=== PATIENT | male | born 1970 | race Hispanic/Latino ===

== ENCOUNTER 2018-03-23 23:22 | Inpatient (IN) | payer SELFPAY ==
[2018-03-23 23:53] LABS: #Eosinphils 0.2 thou/uL (0.0-0.7); #Lymphocytes 2.3 thou/uL (1.20-3.40); #Monocytes 0.4 thou/uL (0.11-0.59); #Neutrophils 3.9 thou/uL (1.40-6.50); %Basophils 0.6 % (0.0-1.0); %Eosinophils 2.6 % (0.0-10.0); %Lymphocytes 34.3 % (21.0-51.0); %Monocytes 5.2 % (0.0-10.0); %Neutrophils 57.2 % (42.0-75.0); Mean Corpuscular HGB CONC 31.5 g/dL (32.0-36.0); Mean Corpuscular Hemoglobin 27.5 pg (27.0-31.0); Mean Corpuscular Volume 87.1 fl (80.0-94.0); Mean Platelet Volume 7.6 fL (7.4-10.4); Platelet Count 186 thou/uL (130-400); RBC Distribution Width 12.7 % (11.5-14.5); Red Blood Cell (RBC) Count 5.11 mill/uL (4.70-6.10); White Blood Cell (WBC) Count 6.8 thou/uL (4.8-10.8)
[2018-03-24 00:12] LABS: ALT (SGPT) 36 U/L (8-55); AST (SGOT) 33 U/L (5-34); Albumin 3.9 g/dL (3.5-5.0); Alkaline Phosphatase 164 U/L (40-150); Anion Gap 15 mmol/L (10-20); BUN (Urea Nitrogen) 13 mg/dL (8.9-20.6); Bilirubin, Total 0.4 mg/dL (0.2-1.2); Calc. Creatinine Clearance 0 mL/min (70-130); Calcium 10.2 mg/dL (7.8-10.44); Carbon Dioxide 28 mmol/L (22-29); Chloride 97 mmol/L (98-107); Estimated GFR-MDRD 43; Globulin 5.3 g/dL (2.4-3.5); Protein, Total 9.2 g/dL (6.0-8.3); Sodium 136 mmol/L (136-145)
[2018-03-24 00:17] LABS: CKMB 0.9 ng/mL (0-6.6); Troponin I Less than 0.010 ng/mL (< 0.028)
[2018-03-24] MEDS ORDERED: Meclizine HCl 25 MG TAB ONE (00:22)
[2018-03-24 00:28] LABS: Bilirubin Negative (Negative); Blood, Urine Negative (Negative); Clarity CLEAR (Clear); Glucose, Urine (Dipstick) >=1000 mg/dL (Negative); Leukocyte Negative (Negative); Nitrite Negative (Negative); Protein, Urine (Dipstick) Negative (Neg-Trace); Specific Gravity, Urine 1.018 (1.002-1.036); Urobilinogen 0.2 mg/dL (0.2-1.0)
[2018-03-24 00:39] LABS: Glucose 856 mg/dL (70-105)
[2018-03-24 01:03] LABS: Magnesium 2.2 mg/dL (1.6-2.6); Phosphorus 4.7 mg/dL (2.3-4.7)
[2018-03-24] MEDS ORDERED: Dextrose 5% in Water 1,000 ML IV PRN (01:13)
[2018-03-24] MEDS ORDERED: Insulin Regular 300 UNITS/3 ML VIAL SC PRN (01:13)
[2018-03-24] MEDS ORDERED: Dextrose 50% Abboject 50 ML SYRINGE SLOW IVP PRN (01:13)
[2018-03-24 01:14] LABS: Base Excess-Venous 2.8 mmol/L (0 (+/- 2.5)); Bicarbonate (HCO3v) 28.7 mmol/L (1.0-85.0); CO2 Tension (PvCO2) 47.5 mmHg (41.0-51.0); Calcium, Ionized 1.08 mmol/L (1.12-1.32); Hemoglobin - Calc 16.3 g/dL (12.0-18.0); O2 Tension (PvO2) 31.1 mmHg (35.0-45.0); Potassium 4.3 mmol/L (3.4-4.7); T. Carbon Dioxide 30.2 mmol/L (1.0-85.0); vO2 Saturation-calc 58.3 % (94-98)
[2018-03-24] MEDS ORDERED: HumaLOG 300 UNITS/3 ML VIAL ONE (01:17)
[2018-03-24 02:27] LABS: Hemoglobin A1c 10.4 % (4.0-6.0)
[2018-03-24] MEDS ORDERED: Ondansetron HCl/PF 4 MG/2 ML Vial IVP PRN ×2 (02:35→07:27)
[2018-03-24] MEDS ORDERED: Acetaminophen 325 MG TAB PO PRN (02:35)
[2018-03-24] MEDS ORDERED: Ondansetron ODT 4 MG TAB SL PRN (02:35)
[2018-03-24] MEDS: Insulin Regular 300 UNITS/3 ML VIAL SC PRN ×5 (02:46→20:58)
[2018-03-24] MEDS: Sodium Chloride 0.9% 1,000 ML IV SCH ×4 (02:46→20:55)
[2018-03-24 02:49] VITALS: BMI 36.6
[2018-03-24] MEDS ORDERED: VANCOMYCIN/RENALLY ADJUST ABX IVPB PRN (07:02)
[2018-03-24] MEDS ORDERED: Vancomycin HCl 1 GM in Premix Bag 1 BAG IVPB SCH (07:15)
[2018-03-24] MEDS ORDERED: Calcium Carbonate 500 MG ChewTAB PO PRN (07:27)
[2018-03-24] MEDS ORDERED: Senokot 8.6 MG TAB PO PRN (07:27)
[2018-03-24] MEDS ORDERED: Ondansetron ODT 4 MG TAB PO PRN (07:27)
[2018-03-24] MEDS ORDERED: Mag-Al 1200 mg/1200 mg/30 ML UDCUP PO PRN (07:27)
--- NOTE | 2018-03-24 07:49 | HP ---
DATE OF ADMISSION: 03/24/2018 PRIMARY CARE PHYSICIAN: Dr. Uribe. CHIEF COMPLAINT: Dizziness. HISTORY OF PRESENT ILLNESS: Patient is a 47-year-old male with obesity who presented to the emergency room with above complaints. Over the past few days, the patient developed gradual worsening dizziness along with the vertigo. He also has nausea without any vomiting. He occasionally had blurry vision. He has been drinking a lo t of fluids lately. He also noticed that he was urinating more than usual. He denies any history of diabetes mellitus type 2. No chest pain, shortness of breath or loss of consciousness reported. No focal neurologic deficit reported other than dizziness and blurriness of vision. In the emergency room, his blood sugar was 856 with creatinine 1.73. He received IV fluids with mecl izine and 10 units of Lantus. PAST MEDICAL HISTORY: 1. History of pneumothorax requiring chest tube placement. 2. 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 3. History of tobacco abuse. PAST SURGICAL HISTORY: 1. Chest tube placement. 2. Appendectomy. 3. Right foot surgery. ALLERGIES: No known drug allergies. CURRENT HOME MEDICATIONS: The patient is unable to recall any of his home medications. SOCIAL HISTORY: Patient currently lives at home with his family. Continues to smoke on and off up t o 3-4 cigarettes a day. No alcohol or drug abuse. FAMILY HISTORY: Mother with COPD. REVIEW OF SYSTEMS: The following complete review of systems was negative, unless otherwise mentioned in the HPI or below: Constitutional: Weight loss or gain, ability to conduct usual activities. Skin: Rash, itching. Eyes: Double vision, pain. ENT/Mouth: Nose bleeding, neck stiffness, pain, tenderness. Cardiovascular: Palpitations, dyspnea on exertion, orthopnea. Respiratory: Shortness of breath, wheezing, cough, hemoptysis, fever or night sweats. Gastrointestinal: Poor appetite, abdominal pain, heartburn, nausea, vomiting, constipation, or diarr hea. Genitourinary: Urgency, frequency, dysuria, nocturia. Musculoskeletal: Pain, swelling. Neurologic/Psychiatric: Anxiety, depression. Allergy/Immunologic: Skin rash, bleeding tendency. PHYSICAL EXAMINATION: VITAL SIGNS: Temperature 98, respirations 20, pulse 97, blood pressure 121/85 with O2 saturation 93% on room air. GENERAL: A 47-year-old male with a weight of 219 pounds, BMI 36.6, in no apparent distress. HEENT: Head is atraumatic, normocephalic. Sclerae are anicteric. Moist mucous membranes. No oral lesion. NECK: Supple, no JVD, no carotid bruit. LUNGS: Clear to auscultation bilaterally, no wheezing or rales. HEART: S1, S2 present. Regular rate and rhythm. No murmur, rubs, or gallops appreciated. ABDOMEN: Soft, nontender, bowel sounds present. EXTREMITIES: No edema or calf tenderness. NEUROLOGIC: Grossly nonfocal, moves all four extremities. PSYCHIATRY: Alert, awake, oriented x3. SKIN: Warm and dry. There is a chronic skin lesion in the gluteal fold with dressing over it. LYMPH NODES: No palpable lymph nodes in the neck. PERIPHERAL VASCULAR: Radial pulses palpable bilaterally. MUSCULOSKELETAL: No joint swelling or tenderness. LABORATORY FINDINGS: CBC showed WBC 6.8 with hemoglobin 14, hematocrit 44.5, platelet 186. Chemistr ies showed sodium 136, potassium 4.0, chloride 97, bicarbonate 28, BUN 13, creatinine 1.73, blood sug ar of 856. Hemoglobin A1c 10.4. Urinalysis was negative for WBC, bacteria. IMPRESSION: 1. New onset diabetes mellitus type 2, uncontrolled. 2. Chronic diabetic ulcer with possible acute infection. 3. Acute kidney injury. 4. Obesity with a BMI 36.6. 5. History of Langerhans cell histiocytosis with recurrent pneumothorax in the past requiring chest tubes. PLAN: The patient will be monitored on the medical floor. We will start him on NPH along with slidi ng scale. We will also add glipizide. We will empirically start him on antibiotics for a day or so. We will get input from wound care. We will also get blood cultures prior to antibiotics. IV fluids. Plan of care was discussed with the patient in detail. He stated understanding. We will also consult dietitian.
[2018-03-24] MEDS: NPH, Human Insulin Isophane 300 UNIT/3 ML VIAL SC SCH (08:19)
[2018-03-24] MEDS: glipiZIDE 5 MG TAB PO SCH ×2 (08:22→17:20)
[2018-03-24] MEDS ORDERED: Insulin Glargine 10 UNITS in Pre-Filled Syringe 1 EACH SC SCH (09:00)
[2018-03-24] MEDS: Vancomycin HCl 1.5 GM in Sodium Chloride 0.9% 250 ML 300 ML IVPB SCH (10:05)
[2018-03-24] MEDS: Acetaminophen 325 MG TAB PO PRN (10:05)
--- NOTE | 2018-03-24 11:47 | PDOC.PN ---
- Subjective Encounter Start Date: 03/24/18 Encounter Start Time: 09:00 Subjective: no sob or palpitations -: and 2 daughters in room - Objective Resuscitation Status: Resuscitation Status FULL:Full Resuscitation MAR Reviewed: Yes Vital Signs & Weight: Vital Signs (12 hours) Temp Pulse Resp BP Pulse Ox 03/24/18 08:00 98.3 F 78 16 03/24/18 07:30 98.3 F 78 16 104/68 93 L 03/24/18 04:13 98.5 F 91 16 96/58 L 93 L 03/24/18 03:46 98.3 F 91 16 92 L 03/24/18 02:25 98.3 F 91 16 117/86 92 L Weight Weight 219 lb 15.988 oz Result Diagrams: 03/23/18 23:40 03/23/18 23:40 Additional Labs: Accuchecks 03/24/18 03/24/18 03/24/18 10:26 05:59 02:46 POC Glucose 319 H 433 H Greater than 550 H* 03/24/18 01:56 POC Glucose Greater than 550 H* Phys Exam - Physical Examination HEENT: PERRLA, moist MMs Neck: no JVD, supple Respiratory: no wheezing, no rales Cardiovascular: RRR, no significant murmur Gastrointestinal: soft, non-tender, positive bowel sounds right gluteal abscess with open wound and packing++ Musculoskeletal: no edema, pulses present Neurological: non-focal, moves all 4 limbs Psychiatric: normal affect, A&O x 3 Dx/Plan (1) Abscess, gluteal, right Code(s): L02.31 - CUTANEOUS ABSCESS OF BUTTOCK Status: Acute (2) DM type 2 (diabetes mellitus, type 2) Status: Acute Qualifiers: Diabetes mellitus assisted insulin use: without bed bug exterminator use Diabetes mellitus complication status: with hyperglycemia Qualified Code(s): E11.65 - Type 2 diabetes mellitus with hyperglycemia Comment: new onset (3) HTN (hypertension) Code(s): I10 - ESSENTIAL (PRIMARY) HYPERTENSION Status: Chronic Qualifiers: Hypertension type: essential hypertension Qualified Code(s): I10 - Essential (primary) hypertension (4) Asthma Code(s): J45.909 - UNSPECIFIED ASTHMA, UNCOMPLICATED Status: Chronic Qualifiers: Asthma severity: moderate Asthma complication type: uncomplicated (5) Pulmonary histiocytosis Code(s): C96.6 - UNIFOCAL LANGERHANS-CELL HISTIOCYTOSIS Status: Chronic Comment: with prior right lung surgery - Plan is on iv fluids -: keep pt npo, wound cultures -: d/w , CT pelvis as abscess is present from 2016 to r/o osteo -: on vanc and levaquin -: glipizide and nph for dm, gave full updates to children, pt and * . Review of Systems - Medications/Allergies Allergies/Adverse Reactions: Allergies Allergy/AdvReac Type Severity Reaction Status Date / Time No Known Allergies Allergy Verified 03/11/16 05:57 Medications: Current Medications Acetaminophen (Tylenol) 650 mg PO Q4H PRN PRN Reason: Headache/Fever or Pain Last Admin: 03/24/18 10:05 Dose: 650 mg Al Hydroxide/Mg Hydroxide (Maalox) 30 ml PO Q6H PRN PRN Reason: Heartburn or Indigestion Calcium Carbonate (Tums) 1,000 mg PO Q4H PRN PRN Reason: Heartburn or Indigestion Dextrose/Water (Dextrose 50%) 25 gm SLOW IVP PRN PRN PRN Reason: Hypoglycemia Glipizide (Glucotrol) 5 mg PO BID-AC COUNTS INCLUDE 234 BEDS AT THE [facility] Last Admin: 03/24/18 08:22 Dose: 5 mg Glucagon (Glucagon) 1 mg IM PRN PRN PRN Reason: Hypoglycemia Dextrose/Water (D5w) 1,000 mls @ 0 mls/hr IV .Q0M PRN; As Directed PRN Reason: Hypoglycemia Sodium Chloride (Normal Saline 0.9%) 1,000 mls @ 150 mls/hr IV .Q6H40M COUNTS INCLUDE 234 BEDS AT THE [facility] Last Admin: 03/24/18 10:56 Dose: Not Given Levofloxacin 500 mg/ Device 100 mls @ 100 mls/hr IVPB 0800 COUNTS INCLUDE 234 BEDS AT THE [facility] Last Admin: 03/24/18 08:19 Dose: 100 mls Vancomycin HCl 1.5 gm/ Sodium (Chloride) 300 mls @ 200 mls/hr IVPB 0900 COUNTS INCLUDE 234 BEDS AT THE [facility] Last Admin: 03/24/18 10:05 Dose: 300 mls Insulin Human NPH (Humulin N) 10 unit SC QAM-[facility] Last Admin: 03/24/18 08:19 Dose: 10 unit Insulin Human Regular (Humulin R) 0 units SC .BEDTIME SLIDING SC PRN PRN Reason: Bedtime Correctional Scale Insulin Human Regular (Humulin R) 0 units SC .MILD SLIDING SCALE PRN PRN Reason: Mild Correctional Scale Last Admin: 03/24/18 11:16 Dose: 5 units Miscellaneous Medication (Pharmacy To Dose) 1 each IVPB PRN PRN PRN Reason: Pharmacy to dose Morphine Sulfate (Morphine) 2 mg SLOW IVP Q4H PRN PRN Reason: Chest Pain/BP Elevations Ondansetron HCl (Zofran Odt) 4 mg PO Q6H PRN PRN Reason: Nausea/Vomiting Ondansetron HCl (Zofran) 4 mg IVP Q6H PRN PRN Reason: Nausea/Vomiting Senna (Senokot) 2 tab PO HSPRN PRN PRN Reason: Constipation
[2018-03-24] MEDS: Morphine 4 MG/ML VIAL SLOW IVP PRN (12:21)
--- NOTE | 2018-03-24 14:18 | CON ---
DATE OF CONSULTATION: 03/24/2018 HISTORY OF PRESENT ILLNESS: This is a 47-year-old male patient, morbidly obese, 5 foot 5, 219 pounds , 36 BMI, diabetic, hypertensive, admitted by Hospitalist Service this morning. He had a blood sugar of 800. It is now down to 300. He is a newly diagnosed diabetic. He has a chronic wound presacral . He states he has had a wound since hospitalization in 2015 at which time he underwent fluoro scopy and decortication, biopsy. He has emphysematous bullous disease. He states he has not smoked since that 2015 admission, but he did have a sacral wound that was persistent. On admission, his white count was 6.8, hemoglobin 14. Basic metabolic profile normal, glucose greate r than 800, hemoglobin A1c 10.4. I have been asked to see him to evaluate his wound. Wound VAC is in place. I took off the wound VAC , looked at the wound, he has healthy granulation without infection. There is no need for debridemen t. ASSESSMENT AND PLAN: The plan at this time is to place a wound VAC and change it twice a week. He i s uninsured and lives in [place] and we will consult music therapist for [facility] wound VAC. He should follow up in Wound Care for wound VAC change twice a week at [facility] appointment versus [place] outpatient wound care. If antibiotics are administered because of his presacral wound, that can be discontinued. At this point, I will see him as needed. He can fol low up in the office as needed for the wound if necessary. Wound Care will be following him.
[2018-03-25] MEDS: Sodium Chloride 0.9% 1,000 ML IV SCH (03:42)
[2018-03-25 05:36] LABS: #Eosinphils 0.2 thou/uL (0.0-0.7); #Monocytes 0.4 thou/uL (0.11-0.59); #Neutrophils 3.1 thou/uL (1.40-6.50); %Basophils 0.3 % (0.0-1.0); %Eosinophils 3.5 % (0.0-10.0); %Lymphocytes 44.7 % (21.0-51.0); %Monocytes 5.8 % (0.0-10.0); %Neutrophils 45.8 % (42.0-75.0); Hemoglobin 12.7 g/dL (14.0-18.0); Mean Corpuscular HGB CONC 32.7 g/dL (32.0-36.0); Mean Corpuscular Volume 85.4 fl (80.0-94.0); Mean Platelet Volume 7.7 fL (7.4-10.4); Platelet Count 169 thou/uL (130-400); RBC Distribution Width 12.9 % (11.5-14.5); Red Blood Cell (RBC) Count 4.55 mill/uL (4.70-6.10); White Blood Cell (WBC) Count 6.8 thou/uL (4.8-10.8)
[2018-03-25 06:01] LABS: Anion Gap 8 mmol/L (10-20); BUN (Urea Nitrogen) 7 mg/dL (8.9-20.6); Calc. Creatinine Clearance 128 mL/min (70-130); Calcium 8.4 mg/dL (7.8-10.44); Carbon Dioxide 26 mmol/L (22-29); Chloride 114 mmol/L (98-107); Estimated GFR-MDRD 79; Glucose 317 mg/dL (70-105); Potassium 3.5 mmol/L (3.5-5.1); Sodium 144 mmol/L (136-145)
[2018-03-25] MEDS: Insulin Regular 300 UNITS/3 ML VIAL SC PRN ×3 (06:24→21:06)
[2018-03-25] MEDS: metFORMIN 500 MG TAB PO SCH ×3 (09:07→21:06)
[2018-03-25] MEDS: glipiZIDE 5 MG TAB PO SCH ×2 (09:07→16:08)
[2018-03-25] MEDS ORDERED: Lidocaine 4% Topical Sol 50 ML BOT TOP SCH (09:30)
[2018-03-25] MEDS: NPH, Human Insulin Isophane 300 UNIT/3 ML VIAL SC SCH (09:51)
[2018-03-25] MEDS: Morphine 4 MG/ML VIAL SLOW IVP PRN (09:51)
[2018-03-25] MEDS: Vancomycin HCl 1.5 GM in Sodium Chloride 0.9% 250 ML 300 ML IVPB SCH ×2 (09:56→21:06)
--- NOTE | 2018-03-25 12:49 | PDOC.PN ---
- Subjective Encounter Start Date: 03/25/18 Encounter Start Time: 11:00 Subjective: feels better, is getting dressing changed by wound care - Objective Resuscitation Status: Resuscitation Status FULL:Full Resuscitation MAR Reviewed: Yes Vital Signs & Weight: Vital Signs (12 hours) Temp Pulse Resp BP Pulse Ox 03/25/18 12:00 98.7 F 96 16 135/90 92 L 03/25/18 08:00 98.5 F 81 14 114/68 91 L 03/25/18 04:28 98.8 F 91 18 110/73 92 L Weight Admit Weight 219 lb 15.984 oz Weight 219 lb 15.984 oz Result Diagrams: 03/25/18 04:37 03/25/18 04:37 Additional Labs: Accuchecks 03/25/18 03/25/18 03/24/18 11:25 03:57 23:56 POC Glucose 296 H 322 H 288 H 03/24/18 03/24/18 20:09 14:05 POC Glucose 310 H 253 H Phys Exam - Physical Examination HEENT: PERRLA, moist MMs Neck: no JVD, supple Respiratory: no wheezing, no rales Cardiovascular: RRR, no significant murmur Gastrointestinal: soft, non-tender, positive bowel sounds chronic large gluteal ulcer in wound vac Musculoskeletal: no edema, pulses present Neurological: non-focal, moves all 4 limbs Psychiatric: normal affect, A&O x 3 Dx/Plan (1) Abscess, gluteal, right Code(s): L02.31 - CUTANEOUS ABSCESS OF BUTTOCK Status: Acute Comment: in wound vac (2) DM type 2 (diabetes mellitus, type 2) Status: Acute Qualifiers: Diabetes mellitus intermediate card tender insulin use: without intermediate card tender use Diabetes mellitus complication status: with hyperglycemia Qualified Code(s): E11.65 - Type 2 diabetes mellitus with hyperglycemia Comment: new onset (3) HTN (hypertension) Code(s): I10 - ESSENTIAL (PRIMARY) HYPERTENSION Status: Chronic Qualifiers: Hypertension type: essential hypertension Qualified Code(s): I10 - Essential (primary) hypertension (4) Asthma Code(s): J45.909 - UNSPECIFIED ASTHMA, UNCOMPLICATED Status: Chronic Qualifiers: Asthma severity: moderate Asthma complication type: uncomplicated (5) Pulmonary histiocytosis Code(s): C96.6 - UNIFOCAL LANGERHANS-CELL HISTIOCYTOSIS Status: Chronic Comment: with prior right lung surgery - Plan add metformin to glipizide -: plan is to dc nph on discharge -: fingerstick is getting better around ([phone]) -: needs home wound vac and outpt wound care -: will be ready for dc in am once dm is controlled * . Review of Systems - Medications/Allergies Allergies/Adverse Reactions: Allergies Allergy/AdvReac Type Severity Reaction Status Date / Time No Known Allergies Allergy Verified 03/11/16 05:57 Medications: Current Medications Acetaminophen (Tylenol) 650 mg PO Q4H PRN PRN Reason: Headache/Fever or Pain Last Admin: 03/24/18 10:05 Dose: 650 mg Al Hydroxide/Mg Hydroxide (Maalox) 30 ml PO Q6H PRN PRN Reason: Heartburn or Indigestion Calcium Carbonate (Tums) 1,000 mg PO Q4H PRN PRN Reason: Heartburn or Indigestion Dextrose/Water (Dextrose 50%) 25 gm SLOW IVP PRN PRN PRN Reason: Hypoglycemia Glipizide (Glucotrol) 5 mg PO BID-[facility] Last Admin: 03/25/18 09:07 Dose: 5 mg Glucagon (Glucagon) 1 mg IM PRN PRN PRN Reason: Hypoglycemia Dextrose/Water (D5w) 1,000 mls @ 0 mls/hr IV .Q0M PRN; As Directed PRN Reason: Hypoglycemia Levofloxacin 500 mg/ Device 100 mls @ 100 mls/hr IVPB 0800 [facility] Last Admin: 03/25/18 09:07 Dose: 100 mls Vancomycin HCl 1.5 gm/ Sodium (Chloride) 300 mls @ 200 mls/hr IVPB Q12HR [facility] Insulin Human NPH (Humulin N) 10 unit SC QAM-[facility] Last Admin: 03/25/18 09:51 Dose: 10 unit Insulin Human Regular (Humulin R) 0 units SC .BEDTIME SLIDING SC PRN PRN Reason: Bedtime Correctional Scale Last Admin: 03/24/18 20:58 Dose: 4 unit Insulin Human Regular (Humulin R) 0 units SC .MILD SLIDING SCALE PRN PRN Reason: Mild Correctional Scale Last Admin: 03/25/18 06:24 Dose: 5 units Lidocaine HCl (Xylocaine 4% Topical Malorie) 0 ml TOP [facility] Last Admin: 03/25/18 09:54 Dose: 1 appful Metformin HCl (Glucophage) 500 mg PO TID [facility] Last Admin: 03/25/18 09:07 Dose: 500 mg Miscellaneous Medication (Pharmacy To Dose) 1 each IVPB PRN PRN PRN Reason: Pharmacy to dose Morphine Sulfate (Morphine) 2 mg SLOW IVP Q4H PRN PRN Reason: Chest Pain/BP Elevations Last Admin: 03/25/18 09:51 Dose: 2 mg Ondansetron HCl (Zofran Odt) 4 mg PO Q6H PRN PRN Reason: Nausea/Vomiting Ondansetron HCl (Zofran) 4 mg IVP Q6H PRN PRN Reason: Nausea/Vomiting Senna (Senokot) 2 tab PO HSPRN PRN PRN Reason: Constipation
--- NOTE | 2018-03-25 14:02 | ADD-HP ---
ADDENDUM ALLERGIES: None. SOCIAL HISTORY: Tobacco: None, cessation 2016. Family and patient states he has not smoked since t hen. Alcohol: None. MEDICATIONS: At home, none. PAST SURGICAL HISTORY: Dr. Tucker in 2016 performed tube thoracostomy, placement of decortication and lung biopsy. The patient has bullous emphysema and COPD. He is disabled, does not work. PAST MEDICAL HISTORY: Bullous emphysema, COPD, recently diagnosed diabetes mellitus. REVIEW OF SYSTEMS: Ten-point noncontributory. PHYSICAL EXAMINATION: VITAL SIGNS: Height 5 feet 5 inches, 219 pounds, 98 degrees, pulse 90, respiratory rate 18, 115/78. LUNGS: Clear to auscultation. CARDIAC: Regular rate and rhythm without murmur or gallop. ABDOMEN: Obese, protuberant, nontender. EXTREMITIES: Unremarkable. No ankle edema. Wound VAC removed from the presacral wound. The patien t has a healthy granulating wound without edema, without cellulitis, without purulent drainage and wi thout infection. This extends about 5-6 cm deep and is about 6 cm long and 4 cm wide. LABORATORY DATA: White count 6, hemoglobin 14. Basic metabolic profile normal except for glucose of greater than 800. ASSESSMENT AND PLAN: 1. Presacral wound secondary to decubitus. We would recommend continued wound VAC care 2 times a we . [facility] to be arranged outpatient visit, [facility] in [place]. No reyes rgical intervention is warranted. I do not recommend antibiotics for this. There is no evidence of infection. Antibiotics are not indicated for the sacral wound. This wound has occurred as a result of decubitus from the past hospitalization according to the family. He has not sought medical care u ntil now. 2. Morbid obesity and metabolic syndrome.
[2018-03-26] MEDS: Insulin Regular 300 UNITS/3 ML VIAL SC PRN ×4 (04:07→16:35)
[2018-03-26] MEDS: glipiZIDE 5 MG TAB PO SCH ×2 (06:36→16:13)
[2018-03-26] MEDS: NPH, Human Insulin Isophane 300 UNIT/3 ML VIAL SC SCH (07:43)
[2018-03-26] MEDS: metFORMIN 500 MG TAB PO SCH ×3 (08:56→20:49)
[2018-03-26] MEDS: Vancomycin HCl 1.5 GM in Sodium Chloride 0.9% 250 ML 300 ML IVPB SCH ×2 (09:29→20:52)
--- NOTE | 2018-03-26 10:51 | PDOC.PN ---
- Subjective Encounter Start Date: 03/26/18 Encounter Start Time: 09:10 Subjective: feels better, no pain -: daughter in room - Objective Resuscitation Status: Resuscitation Status FULL:Full Resuscitation MAR Reviewed: Yes Vital Signs & Weight: Vital Signs (12 hours) Temp Pulse Resp BP Pulse Ox 03/26/18 08:30 98.6 F 84 16 92 L 03/26/18 07:55 98.6 F 84 16 110/74 92 L 03/26/18 04:15 99 F 89 18 121/74 92 L 03/26/18 02:49 92 L 03/25/18 23:55 99.5 F 88 18 106/70 91 L Weight Admit Weight 219 lb 15.984 oz Weight 219 lb 15.984 oz I&O: 03/25/18 03/26/18 03/27/18 06:59 06:59 06:59 Intake Total 900 Output Total 1350 Balance -450 Result Diagrams: 03/25/18 04:37 03/25/18 04:37 Additional Labs: Accuchecks 03/26/18 03/26/18 03/26/18 10:31 05:55 02:46 POC Glucose 277 H 279 H 290 H 03/26/18 03/25/18 03/25/18 02:00 20:28 15:48 POC Glucose 264 H 322 H 267 H 03/25/18 11:25 POC Glucose 296 H Phys Exam - Physical Examination HEENT: PERRLA, moist MMs Neck: no JVD, supple Respiratory: no wheezing, no rales Cardiovascular: RRR, no significant murmur Gastrointestinal: soft, non-tender, positive bowel sounds wound vac to gluteal wound Musculoskeletal: no edema, pulses present Neurological: non-focal, moves all 4 limbs Psychiatric: normal affect, A&O x 3 Dx/Plan (1) Abscess, gluteal, right Code(s): L02.31 - CUTANEOUS ABSCESS OF BUTTOCK Status: Acute Comment: in wound vac (2) DM type 2 (diabetes mellitus, type 2) Status: Acute Qualifiers: Diabetes mellitus long term care administrator insulin use: without long term care administrator use Diabetes mellitus complication status: with hyperglycemia Qualified Code(s): E11.65 - Type 2 diabetes mellitus with hyperglycemia Comment: new onset (3) HTN (hypertension) Code(s): I10 - ESSENTIAL (PRIMARY) HYPERTENSION Status: Chronic Qualifiers: Hypertension type: essential hypertension Qualified Code(s): I10 - Essential (primary) hypertension (4) Asthma Code(s): J45.909 - UNSPECIFIED ASTHMA, UNCOMPLICATED Status: Chronic Qualifiers: Asthma severity: moderate Asthma complication type: uncomplicated (5) Pulmonary histiocytosis Code(s): C96.6 - UNIFOCAL LANGERHANS-CELL HISTIOCYTOSIS Status: Chronic Comment: with prior right lung surgery - Plan on glipizide and metformin, will escalate dose in am if needed -: to dc nph in am for dc plan -: wound vac for outpt has been set up per patient -: dc plan in am on augmentin for 10 days -: to amb as tolerated * . Review of Systems - Medications/Allergies Allergies/Adverse Reactions: Allergies Allergy/AdvReac Type Severity Reaction Status Date / Time No Known Allergies Allergy Verified 03/11/16 05:57 Medications: Current Medications Acetaminophen (Tylenol) 650 mg PO Q4H PRN PRN Reason: Headache/Fever or Pain Last Admin: 03/24/18 10:05 Dose: 650 mg Al Hydroxide/Mg Hydroxide (Maalox) 30 ml PO Q6H PRN PRN Reason: Heartburn or Indigestion Calcium Carbonate (Tums) 1,000 mg PO Q4H PRN PRN Reason: Heartburn or Indigestion Dextrose/Water (Dextrose 50%) 25 gm SLOW IVP PRN PRN PRN Reason: Hypoglycemia Glipizide (Glucotrol) 5 mg PO BID-AC [facility] Last Admin: 03/26/18 06:36 Dose: 5 mg Glucagon (Glucagon) 1 mg IM PRN PRN PRN Reason: Hypoglycemia Dextrose/Water (D5w) 1,000 mls @ 0 mls/hr IV .Q0M PRN; As Directed PRN Reason: Hypoglycemia Levofloxacin 500 mg/ Device 100 mls @ 100 mls/hr IVPB 0800 [facility] Last Admin: 03/26/18 07:43 Dose: 100 mls Vancomycin HCl 1.5 gm/ Sodium (Chloride) 300 mls @ 200 mls/hr IVPB Q12HR [facility] Last Admin: 03/26/18 09:29 Dose: 300 mls Insulin Human NPH (Humulin N) 10 unit SC QAM-[facility] Last Admin: 03/26/18 07:43 Dose: 10 unit Insulin Human Regular (Humulin R) 0 units SC .BEDTIME SLIDING SC PRN PRN Reason: Bedtime Correctional Scale Last Admin: 03/26/18 04:07 Dose: 3 unit Insulin Human Regular (Humulin R) 0 units SC .MILD SLIDING SCALE PRN PRN Reason: Mild Correctional Scale Last Admin: 03/26/18 06:36 Dose: 4 units Lidocaine HCl (Xylocaine 4% Topical Malorie) 0 ml TOP ASDIR [facility] Last Admin: 03/25/18 09:54 Dose: 1 appful Metformin HCl (Glucophage) 500 mg PO TID [facility] Last Admin: 03/26/18 08:56 Dose: 500 mg Miscellaneous Medication (Pharmacy To Dose) 1 each IVPB PRN PRN PRN Reason: Pharmacy to dose Morphine Sulfate (Morphine) 2 mg SLOW IVP Q4H PRN PRN Reason: Chest Pain/BP Elevations Last Admin: 03/25/18 09:51 Dose: 2 mg Ondansetron HCl (Zofran Odt) 4 mg PO Q6H PRN PRN Reason: Nausea/Vomiting Ondansetron HCl (Zofran) 4 mg IVP Q6H PRN PRN Reason: Nausea/Vomiting Senna (Senokot) 2 tab PO HSPRN PRN PRN Reason: Constipation
[2018-03-26 20:11] LABS: Vancomycin, Trough 14.9 ug/mL
[2018-03-26] MEDS: Acetaminophen 325 MG TAB PO PRN (23:21)
[2018-03-27 05:57] LABS: Anion Gap 10 mmol/L (10-20); BUN (Urea Nitrogen) 10 mg/dL (8.9-20.6); Calc. Creatinine Clearance 128 mL/min (70-130); Calcium 9.1 mg/dL (7.8-10.44); Carbon Dioxide 23 mmol/L (22-29); Cardiac Risk 7.7 (Less than 4.5); Chloride 109 mmol/L (98-107); Cholesterol 146 mg/dl (< 200 Desired); Estimated GFR-MDRD 79; Glucose 253 mg/dL (70-105); HDL Cholesterol 19 mg/dL (>60 Neg Risk); LDL Cholesterol, Calculated 100 mg/dL; Potassium 3.4 mmol/L (3.5-5.1); Sodium 139 mmol/L (136-145); Triglycerides 133 mg/dL (Less than 150)
[2018-03-27] MEDS: Insulin Regular 300 UNITS/3 ML VIAL SC PRN ×2 (06:34→12:01)
[2018-03-27] MEDS: glipiZIDE 5 MG TAB PO SCH (06:38)
[2018-03-27] MEDS: NPH, Human Insulin Isophane 300 UNIT/3 ML VIAL SC SCH (07:33)
[2018-03-27] MEDS: Vancomycin HCl 1.5 GM in Sodium Chloride 0.9% 250 ML 300 ML IVPB SCH (08:46)
[2018-03-27] MEDS: metFORMIN 500 MG TAB PO SCH (08:46)
--- NOTE | 2018-03-27 10:47 | PDOC.PN ---
- Subjective Encounter Start Date: 03/27/18 Encounter Start Time: 08:10 Subjective: feels better -: is amb in room per family -: daughter and at bedside - Objective Resuscitation Status: Resuscitation Status FULL:Full Resuscitation MAR Reviewed: Yes Vital Signs & Weight: Vital Signs (12 hours) Temp Pulse Resp BP Pulse Ox 03/27/18 07:58 97.7 F 84 18 117/80 95 03/27/18 07:45 98.5 F 82 16 95 03/27/18 04:00 98.5 F 82 16 107/73 91 L 03/26/18 23:16 100.1 F H 90 16 118/80 91 L Weight Admit Weight 219 lb 15.984 oz Weight 219 lb 15.984 oz I&O: 03/26/18 03/27/18 03/28/18 06:59 06:59 06:59 Intake Total 900 480 Output Total 1350 3170 Balance -450 -3060 Result Diagrams: 03/25/18 04:37 03/27/18 05:17 Additional Labs: Accuchecks 03/27/18 03/27/18 03/26/18 10:34 06:35 20:41 POC Glucose 240 H 217 H 193 H 03/26/18 16:14 POC Glucose 206 H Phys Exam - Physical Examination HEENT: PERRLA, moist MMs Neck: no JVD, supple Respiratory: no wheezing, no rales Cardiovascular: RRR, no significant murmur Gastrointestinal: soft, non-tender, positive bowel sounds Musculoskeletal: no edema, pulses present gluteal wound in wound vac Neurological: non-focal, moves all 4 limbs Psychiatric: normal affect, A&O x 3 Dx/Plan (1) Abscess, gluteal, right Code(s): L02.31 - CUTANEOUS ABSCESS OF BUTTOCK Status: Acute Comment: in wound vac (2) DM type 2 (diabetes mellitus, type 2) Status: Acute Qualifiers: Diabetes mellitus manager long term care insulin use: without manager long term care use Diabetes mellitus complication status: with hyperglycemia Qualified Code(s): E11.65 - Type 2 diabetes mellitus with hyperglycemia Comment: new onset (3) HTN (hypertension) Code(s): I10 - ESSENTIAL (PRIMARY) HYPERTENSION Status: Chronic Qualifiers: Hypertension type: essential hypertension Qualified Code(s): I10 - Essential (primary) hypertension (4) Asthma Code(s): J45.909 - UNSPECIFIED ASTHMA, UNCOMPLICATED Status: Chronic Qualifiers: Asthma severity: moderate Asthma complication type: uncomplicated (5) Pulmonary histiocytosis Code(s): C96.6 - UNIFOCAL LANGERHANS-CELL HISTIOCYTOSIS Status: Chronic Comment: with prior right lung surgery - Plan may dc home once family learns how to use wound vac -: to come to wound care as planned by 's advice -: meds faxed to pharmacy -: d/w family at bedside, to check fingerstick bid x 10 days and record to f/u * .
[2018-03-27 14:10] VITALS: BP 122/81; TEMP 98.9
--- NOTE | 2018-03-28 00:18 | DIS ---
DATE OF ADMISSION: 03/24/2018 DATE OF DISCHARGE: 03/27/2018 DISCHARGE DISPOSITION: To home. PRIMARY DISCHARGE DIAGNOSES: Gluteal abscess status post local wound debridement with placement in wound VAC, new-onset diabetes mellitus type 2. SECONDARY DISCHARGE DIAGNOSES: Hypertension, history of pulmonary histiocytosis. PROCEDURES DONE DURING HOSPITALIZATION: Wound cultures are growing multiple fidel including Staph aureus, Enterococcus, E. coli and yeast species. Blood cultures x2 no growth. H&H of 12 and 38, platelet count 169 and serum glucose of 856 on the day of admission. HbA1c was 10.4, LDL 100, triglycerides 133, HDL 19. Total cholesterol 146. Discharge fingerstick glucose is ranging from 193 to 217. DISCHARGE MEDICATIONS: Glipizide 5 mg twice daily, Motrin 400 mg p.o. q.6 hourly p.r.n., Augmentin 875 mg p.o. twice daily for 10 days, metformin 1000 mg p.o. twice daily. ALLERGIES: No known drug allergies. INPATIENT CONSULTS: Dr. Martin for General Surgery. DISCHARGE PLAN: The patient to follow up with primary care physician in 1 week. BRIEF COURSE DURING HOSPITALIZATION: The patient initially got admitted on the for complaints of dizziness. He also felt nauseous with blurry vision. He is also urinating a lot. On arrival, the patient was found to have had serum sugar of 856 with creatinine of 1.73. This was new onset diabetes with acute kidney injury due to dehydration. He also had a large gluteal ulcer which has been there for nearly 2 years or so and his was tending to it at home. In view of this, he has had General Surgery consultation as well. The patient was vigorously hydrated. He was placed on glipizide, metformin, and NPH insulin. His gluteal wound which is fairly large ulcer appears to be clean per Dr. Martin. There is no need for operative debridement. This wound was placed in wound VAC and case management consultation for outpatient wound VAC was consulted. This has been arranged today and he will be shortly discharged home. He has been advised to check fingerstick glucose twice daily and record for a period of 10 days to follow up with primary care physician. Please note, the patient needs to continue on glipizide and metformin. His NPH insulin has been discontinued at the time of discharge. Family was taught how to use the wound VAC and care for his wound. He also needs to come to wound care downstairs 2 times a week from this coming week. Please see a [id number]-ty-rhoc documentation on [facility] for the day of discharge. BENJAMIN
== END 2018-03-27 14:05 | disposition home or self-care (01) | DRG 603 ==
LOC: ERS 23:22 → SURG A 03-24 01:17
PROVIDERS: ADMIT Internal Medicine; ATTEND Internal Medicine
DX: L02.31 Cutaneous abscess of buttock (principal); C96.6 Unifocal Langerhans-cell histiocytosis; N17.9 Acute kidney failure, unspecified; B95.62 Methicillin resistant Staphylococcus aureus infection as the cause of diseases classified elsewhere; B95.2 Enterococcus as the cause of diseases classified elsewhere; B96.20 Unspecified Escherichia coli [E. coli] as the cause of diseases classified elsewhere; B37.9 Candidiasis, unspecified; J45.909 Unspecified asthma, uncomplicated; I10 Essential (primary) hypertension; Z79.84 Long term (current) use of oral hypoglycemic drugs; J43.9 Emphysema, unspecified; E66.01 Morbid (severe) obesity due to excess calories; Z68.36 Body mass index [BMI] 36.0-36.9, adult; L89.159 Pressure ulcer of sacral region, unspecified stage; E11.622 Type 2 diabetes mellitus with other skin ulcer; Z87.891 Personal history of nicotine dependence; E11.65 Type 2 diabetes mellitus with hyperglycemia; E78.5 Hyperlipidemia, unspecified
CPT/HCPCS: 36415; 36416; 80048; 80053; 80061; 80202; 81003; 82330; 82435; 82553; 82803; 83036; 83735; 84100; 84132; 84295; 84484; 85014; 85025; 87040; 87070; 87077; 87186; 87205; 93005; 96360; 96372; J1815; J1956; J2001; J2270; J3370; J7050

== ENCOUNTER 2018-03-31 13:05 | Outpatient (CLI) | payer SELFPAY ==
[~2018-03-31 13:05] MED LIST: Lidocaine 4% Topical Sol 50 ML BOT ONE; Sodium Chloride 0.9% 15 ML NEB ONE
== END 2018-03-31 13:06 | disposition home or self-care (01) ==
LOC: WCC 13:05
PROVIDERS: ATTEND Family Medicine
DX: L89.159 Pressure ulcer of sacral region, unspecified stage (principal)
CPT/HCPCS: 97605; A4218; J2001

== ENCOUNTER → 2018-04-05 | Outpatient (CLI) | payer SELFPAY ==
[~2018-04-05] MED LIST changes: -Lidocaine 4% Topical Sol 50 ML BOT ONE
== END ==
LOC: WCC 10:29
PROVIDERS: ATTEND Family Medicine
DX: L89.159 Pressure ulcer of sacral region, unspecified stage (principal)
CPT/HCPCS: 97605; A4218

== ENCOUNTER 2018-04-07 14:04 | Outpatient (CLI) | payer SELFPAY ==
[~2018-04-07 14:04] MED LIST changes: +Lidocaine 4% Topical Sol 50 ML BOT ONE
== END 2018-04-07 14:05 | disposition home or self-care (01) ==
LOC: WCC 14:04
PROVIDERS: ATTEND Family Medicine
DX: L89.159 Pressure ulcer of sacral region, unspecified stage (principal)
CPT/HCPCS: 97605; A4218; J2001

== ENCOUNTER 2018-04-11 13:59 | Outpatient (CLI) | payer SELFPAY ==
[~2018-04-11 13:59] MED LIST changes: +Lidocaine 2% Jelly 5 ML TUBE ONE; -Lidocaine 4% Topical Sol 50 ML BOT ONE
--- NOTE | 2018-04-11 18:00 | HP ---
DATE OF ADMISSION: 04/11/2018 HISTORY OF PRESENT ILLNESS: Mr. Don Cowan is a very pleasant 47-year-old gentleman accomp anied by his daughter and spouse who presents to the Wound Center for evaluation of a presacral wound secondary to a pressure ulceration. The patient is presently receiving negative pressure therapy wi th dressing changes of the wound VAC here in the Wound Center. Mr. Marques Cowan has no complaints today. He denies any fever or chills. PAST MEDICAL HISTORY: 1. COPD. 2. 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 3. Diabetes mellitus. 4. Hypertension. PAST SURGICAL HISTORY: 1. Appendectomy. 2. Right foot surgery. 3. Right thoracoscopy with wedge biopsy of the lung and talc pleurodesis. 4. Thoracoscopy/thoracotomy with total lung decortication and stapling of apical bleb, 02/24/2016. MEDICATIONS: 1. Glucotrol. 2. Metformin. 3. Ultram. 4. Motrin. ALLERGIES: No known diagnosed allergies. SOCIAL HISTORY: Significant for tobacco use in the past of 2 packs of cigarettes per day for 24-25 y ears. The patient also admits to the moderate consumption of alcohol in the past for 24-25 years. FAMILY HISTORY: Negative for diabetes mellitus or coronary artery disease. PHYSICAL EXAMINATION: VITAL SIGNS: Temperature 98.0, pulse 80, respirations 19, blood pressure 97/57. GENERAL: A 47-year-old gentleman, lying on table in prone position, in no acute distress. HEENT: Normocephalic, atraumatic. NECK: No nuchal rigidity. CHEST: Clear to auscultation. CARDIAC: Regular rate and rhythm. ABDOMEN: Soft. BACK: A sacral wound is present, which measures approximately 4.0 x 2.5 cm. Granulation tissue is p resent within the wound margins. Necrotic and nonviable tissue present within the wound margins was debrided with an excisional full-thickness debridement with the use of scissors. No purulent drainag e is associated with the wound. No erythema of the skin surrounding the wound is present. No macera tion of the skin of the periwound is noted. EXTREMITIES: No clubbing or cyanosis. NEUROLOGIC: Grossly nonfocal. ASSESSMENT AND PLAN: 1. Sacral wound as described above. Negative pressure therapy will be continued with dressing he es of the wound VAC here in the Wound Center. The patient will be seen by Dr. Martin in 1 week. I w ill see the patient again in 2 weeks. No antibiotics will be prescribed today based upon the appeara nce of the wound. 2. Chronic obstructive pulmonary disease. 3. 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 4. Diabetes mellitus. Accu-Cheks will be obtained at the time of the patient's clinic visits. The patient has been told that for optimal wound healing, his blood glucoses should remain below 150. 5. Hypertension.
== END 2018-04-11 14:00 | disposition home or self-care (01) ==
LOC: WCC 13:59
PROVIDERS: ATTEND Family Medicine
DX: L89.159 Pressure ulcer of sacral region, unspecified stage (principal); J44.9 Chronic obstructive pulmonary disease, unspecified; E11.9 Type 2 diabetes mellitus without complications; I10 Essential (primary) hypertension
CPT/HCPCS: 11042; 99203; A4218; G0463

== ENCOUNTER 2018-04-14 15:09 | Outpatient (CLI) | payer SELFPAY ==
[~2018-04-14 15:09] MED LIST changes: -Lidocaine 2% Jelly 5 ML TUBE ONE; +Lidocaine 4% Topical Sol 50 ML BOT ONE
== END 2018-04-14 15:10 | disposition home or self-care (01) ==
LOC: WCC 15:09
PROVIDERS: ATTEND Family Medicine
DX: L89.159 Pressure ulcer of sacral region, unspecified stage (principal)
CPT/HCPCS: 97605; A4218; J2001

== ENCOUNTER 2018-04-18 13:56 | Outpatient (CLI) | payer SELFPAY ==
[2018-04-18] MEDS ORDERED: Sodium Chloride 0.9% 15 ML NEB ONE (18:26)
== END 2018-04-18 13:57 | disposition home or self-care (01) ==
LOC: WCC 13:56
PROVIDERS: ATTEND Family Medicine
DX: L89.159 Pressure ulcer of sacral region, unspecified stage (principal)
CPT/HCPCS: 97605; A4218

== ENCOUNTER 2018-04-21 13:40 | Outpatient (CLI) | payer SELFPAY | END 2018-04-21 13:41 | disposition home or self-care (01) | LOC: WCC 13:40 | PROVIDERS: ATTEND Family Medicine | DX: L89.159 Pressure ulcer of sacral region, unspecified stage (principal) | CPT/HCPCS: 97605 ==

== ENCOUNTER 2018-04-25 13:43 | Outpatient (CLI) | payer SELFPAY ==
--- NOTE | 2018-04-25 16:16 | PRG ---
DATE OF SERVICE: 04/25/2018 SUBJECTIVE: Mr. Don Cowan is a very pleasant 47-year-old gentleman accompanied by his maría elena flower and spouse, who presents to the Wound Center for evaluation of a presacral wound secondary to a pressure ulceration. The patient is currently receiving negative pressure therapy with dressing rodrigo nges of the wound VAC here in the Wound Center. The patient reports pain associated with his wound t dani. OBJECTIVE: VITAL SIGNS: Temperature 98.5, pulse 85, respirations 18, blood pressure 146/79. Accu-Chek 106. BACK: A sacral wound is present which measures approximately 4.0 x 2.0 cm. Granulation tissue is pr esent within the wound margins. Necrotic and nonviable tissue present within the wound margins was d ebrided with an excisional full-thickness debridement with the use of scissors. No purulent drainage is associated with the wound. No cellulitis of the sacral region is appreciated. No maceration of the skin of the periwound is noted. Samples of granulation tissue within the wound margins were exci sed with the use of scissors and sent for aerobic and anaerobic cultures. ASSESSMENT AND PLAN: 1. Sacral wound as described above. Negative pressure therapy will be continued with dressing he es of the wound VAC here in the Wound Center. The patient will be seen by Dr. Martin in 1 week. I w ill see the patient again in 2 weeks. In view of significant pain associated with the patient's woun d, he has been given a prescription for Bactrim DS #20 one p.o. b.i.d. x10 days. Antibiotic therapy will be modified based upon the results of the tissue cultures obtained today. 2. Chronic obstructive pulmonary disease. 3. 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 4. Diabetes mellitus. The patient's Accu-Chek in clinic today is 106. The patient has been reminde d that for optimal wound healing, his blood glucoses should remain below 150. 5. Hypertension.
== END 2018-04-25 13:44 | disposition home or self-care (01) ==
LOC: WCC 13:43
PROVIDERS: ATTEND Family Medicine
DX: L89.159 Pressure ulcer of sacral region, unspecified stage (principal); C96.6 Unifocal Langerhans-cell histiocytosis; J43.9 Emphysema, unspecified; E11.9 Type 2 diabetes mellitus without complications; I10 Essential (primary) hypertension
CPT/HCPCS: 11042; 87070; 87077; 87186; 87205

== ENCOUNTER 2018-04-28 13:36 | Outpatient (CLI) | payer SELFPAY ==
[2018-05-01] MEDS ORDERED: Sodium Chloride 0.9% 15 ML NEB ONE (13:57)
== END 2018-04-28 13:37 | disposition home or self-care (01) ==
LOC: WCC 13:36
PROVIDERS: ATTEND Family Medicine
DX: L89.159 Pressure ulcer of sacral region, unspecified stage (principal)
CPT/HCPCS: 97605; A4218

== ENCOUNTER 2018-05-02 09:07 | Outpatient (CLI) | payer SELFPAY ==
[2018-05-02] MEDS ORDERED: Sodium Chloride 0.9% 15 ML NEB ONE (10:22)
== END 2018-05-02 09:08 | disposition home or self-care (01) ==
LOC: WCC 09:07
PROVIDERS: ATTEND Family Medicine
DX: L89.159 Pressure ulcer of sacral region, unspecified stage (principal)
CPT/HCPCS: 97605; A4218

== ENCOUNTER 2018-05-05 13:01 | Outpatient (CLI) | payer SELFPAY ==
[~2018-05-05 13:01] MED LIST changes: -Lidocaine 4% Topical Sol 50 ML BOT ONE
== END 2018-05-05 13:02 | disposition home or self-care (01) ==
LOC: WCC 13:01
PROVIDERS: ATTEND Family Medicine
DX: L89.159 Pressure ulcer of sacral region, unspecified stage (principal)
CPT/HCPCS: 97605; A4218

== ENCOUNTER 2018-05-09 14:49 | Outpatient (CLI) | payer SELFPAY ==
[~2018-05-09 14:49] MED LIST changes: +Lidocaine 2% Jelly 5 ML TUBE ONE
--- NOTE | 2018-05-09 16:45 | PRG ---
DATE OF SERVICE: 05/09/2018 SUBJECTIVE: Mr. Don Cowan is a very pleasant 47-year-old gentleman accompanied by his maría elena flower and spouse, who presents to the Wound Center for evaluation of a presacral wound secondary to a pressure ulceration. The patient is currently receiving negative pressure therapy with dressing rodrigo nges of the wound VAC here in the Wound Center. The patient has no complaints today. He denies any fever or chills. OBJECTIVE: VITAL SIGNS: Temperature 98.3, pulse 100, respirations 21, blood pressure 176/92. Accu-Chek 117. BACK: A sacral wound is present which measures approximately 3.7 x 2.5 cm. The dimensions of the wo und at the time of the patient's last visit were approximately 4.0 x 2.0 cm. Granulation tissue is p resent within the wound margins. Necrotic and nonviable tissue present within the wound margins was debrided with an excisional full-thickness debridement with the use of a curette. No purulent draina ge is associated with the wound. No erythema of the skin surrounding the wound is present. No macer ation of the skin of the periwound is noted. ASSESSMENT AND PLAN: 1. Sacral wound as described above. Negative pressure therapy will be continued with dressing he es of the wound VAC here in the Wound Center. I will see the patient again in 2 weeks. Tissue cultu res obtained at the time of the patient's last visit revealed the growth of Staphylococcus aureus sen sitive to Bactrim. The patient was given a prescription for Bactrim DS #20 one p.o. b.i.d. x10 days on 04/25/2018. 2. Chronic obstructive pulmonary disease. 3. 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 4. Diabetes mellitus. The patient's Accu-Chek in clinic today is 117. The patient has been reminde d that for optimal wound healing, his blood glucoses should remain below 150. 5. Hypertension.
== END 2018-05-09 14:50 | disposition home or self-care (01) ==
LOC: WCC 14:49
PROVIDERS: ATTEND Family Medicine
DX: S31.000D Unspecified open wound of lower back and pelvis without penetration into retroperitoneum, subsequent encounter (principal); J43.9 Emphysema, unspecified; E11.9 Type 2 diabetes mellitus without complications; I10 Essential (primary) hypertension; C96.6 Unifocal Langerhans-cell histiocytosis
CPT/HCPCS: 11042; A4218

== ENCOUNTER 2018-05-12 14:08 | Outpatient (CLI) | payer SELFPAY | END 2018-05-12 14:09 | disposition home or self-care (01) | LOC: WCC 14:08 | PROVIDERS: ATTEND Family Medicine | DX: L89.159 Pressure ulcer of sacral region, unspecified stage (principal) | CPT/HCPCS: 97605 ==

== ENCOUNTER 2018-05-19 15:34 | Outpatient (CLI) | payer SELFPAY | END 2018-05-19 15:35 | disposition home or self-care (01) | LOC: WCC 15:34 | PROVIDERS: ATTEND Family Medicine | DX: L89.159 Pressure ulcer of sacral region, unspecified stage (principal) | CPT/HCPCS: 97605 ==

== ENCOUNTER 2018-05-23 15:53 | Outpatient (CLI) | payer SELFPAY ==
--- NOTE | 2018-05-23 19:05 | PRG ---
DATE OF SERVICE: 05/23/2018. HISTORY: Mr. Don Cowan is a very pleasant 47-year-old gentleman accompanied by his daught er who presents to the Wound Center for evaluation of a presacral wound secondary to a pressure ulcer ation. The patient is presently receiving negative pressure therapy with dressing changes of the wou nd VAC here in the Wound Center. The patient has no complaints today. He denies any fever or chills . PHYSICAL EXAMINATION: VITAL SIGNS: Temperature 98.0, pulse 96, respirations 20, blood pressure 125/60. Accu-Chek 75. BACK: A sacral wound is present which measures approximately 4.0 x 2.0 cm. The dimensions of the wo und at the time of the patient's last visit were approximately 3.7 x 2.5 cm. Granulation tissue is p resent within the wound margins. No purulent drainage is associated with the wound. No erythema of the skin surrounding the wound is present. No maceration of the skin of the periwound is noted. ASSESSMENT AND PLAN: 1. Sacral wound as described above. Negative pressure therapy will be continued with dressing he es of the wound VAC here in the Wound Center. I will see Mr. Marques Cowan again in two weeks. The importance of offloading in achieving the healing of the ulceration has been discussed with the alan ent and his daughter. 2. Chronic obstructive pulmonary disease. 3. 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 4. Diabetes mellitus. The patient's Accu-Chek in clinic today is 75. The patient has been reminded that for optimal wound healing, his blood glucoses should remain below 150. 5. Hypertension.
[2018-05-23] MEDS ORDERED: Sodium Chloride 0.9% 15 ML NEB ONE (22:04)
== END 2018-05-23 15:54 | disposition home or self-care (01) ==
LOC: WCC 15:53
PROVIDERS: ATTEND Family Medicine
DX: E11.622 Type 2 diabetes mellitus with other skin ulcer (principal); L89.159 Pressure ulcer of sacral region, unspecified stage; I10 Essential (primary) hypertension; J43.9 Emphysema, unspecified; C96.6 Unifocal Langerhans-cell histiocytosis
CPT/HCPCS: A4218

== ENCOUNTER 2018-05-26 15:25 | Outpatient (CLI) | payer SELFPAY | END 2018-05-26 15:26 | disposition home or self-care (01) | LOC: WCC 15:25 | PROVIDERS: ATTEND Family Medicine | DX: L89.159 Pressure ulcer of sacral region, unspecified stage (principal) | CPT/HCPCS: 97605 ==

== ENCOUNTER 2018-05-30 15:21 | Outpatient (CLI) | payer SELFPAY | END 2018-05-30 15:22 | disposition home or self-care (01) | LOC: WCC 15:21 | PROVIDERS: ATTEND Family Medicine | DX: L89.159 Pressure ulcer of sacral region, unspecified stage (principal) | CPT/HCPCS: 97605 ==

== ENCOUNTER 2018-06-02 14:29 | Outpatient (CLI) | payer SELFPAY ==
[2018-06-02] MEDS ORDERED: Sodium Chloride 0.9% 15 ML NEB ONE (16:39)
== END 2018-06-02 14:30 | disposition home or self-care (01) ==
LOC: WCC 14:29
PROVIDERS: ATTEND Family Medicine
DX: L89.159 Pressure ulcer of sacral region, unspecified stage (principal); E11.9 Type 2 diabetes mellitus without complications; J44.9 Chronic obstructive pulmonary disease, unspecified; C96.6 Unifocal Langerhans-cell histiocytosis; I10 Essential (primary) hypertension
CPT/HCPCS: 97605; A4218

== ENCOUNTER 2018-06-06 15:29 | Outpatient (CLI) | payer SELFPAY ==
--- NOTE | 2018-06-06 16:43 | PRG ---
DATE OF SERVICE: 06/06/2018 HISTORY: Mr. Don Cowan is a very pleasant 47-year-old gentleman accompanied by his a nd daughter who presents to the Wound Center for evaluation of a presacral wound secondary to pressur e ulceration. The patient is currently receiving negative pressure therapy with dressing changes of the wound VAC here in the Wound Center. The patient has no complaints today. He denies any fever or chills. PHYSICAL EXAMINATION: VITAL SIGNS: Temperature 99.1, pulse 101, respirations 23, blood pressure 135/65. Accu-Chek 100. BACK: A sacral wound is present which measures approximately 4.1 x 2.0 cm. Granulation tissue is pr esent within the wound margins. No purulent drainage is associated with the wound. No erythema of t he skin surrounding the wound is present. No maceration of the skin of the periwound is noted. ASSESSMENT AND PLAN: 1. Sacral wound as described above. Negative pressure therapy will be continued with dressing he es of the wound VAC here in the Wound Center. Promogran will be applied to the wound bed at the time of wound VAC dressing changes. I will see Mr. Marques Cowan again in two weeks. The importance of offloading and achieving the healing of the ulceration has again been discussed with the patient and his daughter. 2. Chronic obstructive pulmonary disease. 3. 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 4. Diabetes mellitus. Patient's Accu-Chek in clinic today is 100. The patient has been reminded th at for optimal wound healing, his blood glucoses should remain below 150. 5. Hypertension.
== END 2018-06-06 15:30 | disposition home or self-care (01) ==
LOC: WCC 15:29
PROVIDERS: ATTEND Family Medicine
DX: E11.622 Type 2 diabetes mellitus with other skin ulcer (principal); L89.159 Pressure ulcer of sacral region, unspecified stage; C96.6 Unifocal Langerhans-cell histiocytosis; J43.9 Emphysema, unspecified; I10 Essential (primary) hypertension

== ENCOUNTER 2018-06-09 13:59 | Outpatient (CLI) | payer SELFPAY ==
[~2018-06-09 13:59] MED LIST changes: -Lidocaine 2% Jelly 5 ML TUBE ONE
== END 2018-06-09 14:00 | disposition home or self-care (01) ==
LOC: WCC 13:59
PROVIDERS: ATTEND Family Medicine
DX: L89.159 Pressure ulcer of sacral region, unspecified stage (principal)
CPT/HCPCS: 97605; A4218

== ENCOUNTER 2018-06-13 14:18 | Outpatient (CLI) | payer SELFPAY ==
[2018-06-13] MEDS ORDERED: Sodium Chloride 0.9% 15 ML NEB ONE (16:32)
== END 2018-06-13 14:19 | disposition home or self-care (01) ==
LOC: WCC 14:18
PROVIDERS: ATTEND Family Medicine
DX: L89.159 Pressure ulcer of sacral region, unspecified stage (principal)
CPT/HCPCS: 97602; A4218

== ENCOUNTER 2018-06-16 13:51 | Outpatient (CLI) | payer SELFPAY | END 2018-06-16 13:52 | disposition home or self-care (01) | LOC: WCC 13:51 | PROVIDERS: ATTEND Family Medicine | DX: L89.159 Pressure ulcer of sacral region, unspecified stage (principal) | CPT/HCPCS: 97605 ==

== ENCOUNTER 2018-06-21 13:01 | Outpatient (CLI) | payer SELFPAY | END 2018-06-21 13:02 | disposition home or self-care (01) | LOC: WCC 13:01 | PROVIDERS: ATTEND Family Medicine | DX: L89.159 Pressure ulcer of sacral region, unspecified stage (principal) | CPT/HCPCS: 97605 ==

== ENCOUNTER 2018-06-23 13:13 | Outpatient (CLI) | payer SELFPAY | END 2018-06-23 13:14 | disposition home or self-care (01) | LOC: WCC 13:13 | PROVIDERS: ATTEND Family Medicine | DX: L89.159 Pressure ulcer of sacral region, unspecified stage (principal) | CPT/HCPCS: 97606 ==

== ENCOUNTER 2018-06-27 14:43 | Outpatient (CLI) | payer SELFPAY ==
--- NOTE | 2018-06-27 16:39 | PRG ---
DATE OF SERVICE: 06/27/2018 HISTORY: Mr. Don Cowan is a very pleasant 47-year-old gentleman accompanied by his a nd daughter who presents to the Wound Center for evaluation of a presacral wound secondary to a press ure ulceration. The patient is presently receiving negative pressure therapy with dressing changes o f the wound VAC here in the Wound Center. The patient has no complaints today. He denies any fever or chills. PHYSICAL EXAMINATION: VITAL SIGNS: Temperature 97.8, pulse 89, respirations 16, blood pressure 118/72. Accu-Chek 88. BACK: A sacral wound is present which measures approximately 4.1 x 2.3 cm. Granulation tissue is pr esent within the wound margins. No purulent drainage is associated with the wound. No erythema of t he skin surrounding the wound is present. No maceration of the skin of the periwound is noted. ASSESSMENT AND PLAN: 1. Sacral wound as described above. Negative pressure therapy will be continued with dressing he es of the wound VAC here in the Wound Center. The patient has a followup appointment with Dr. Martin in 1 week. I will see Mr. Marques Cowan again in two weeks. Again, the importance of offloading i n achieving the healing of the ulceration has been discussed with the patient, his daughter and . 2. Chronic obstructive pulmonary disease. 3. 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 4. Diabetes mellitus. The patient's Accu-Chek in clinic today is 88. The patient has been reminded that for optimal wound healing, his blood glucoses should remain below 150. 5. Hypertension.
== END 2018-06-27 14:44 | disposition home or self-care (01) ==
LOC: WCC 14:43
PROVIDERS: ATTEND Family Medicine
DX: E11.622 Type 2 diabetes mellitus with other skin ulcer (principal); L89.159 Pressure ulcer of sacral region, unspecified stage; J44.9 Chronic obstructive pulmonary disease, unspecified; J43.9 Emphysema, unspecified; C96.6 Unifocal Langerhans-cell histiocytosis; I10 Essential (primary) hypertension

== ENCOUNTER 2018-07-05 14:29 | Inpatient (IN) | payer MEDICAID, SELFPAY ==
[2018-07-05 15:47] LABS: #Eosinphils 0.2 thou/uL (0.0-0.7); #Monocytes 0.5 thou/uL (0.11-0.59); #Neutrophils 5.1 thou/uL (1.40-6.50); %Basophils 0.3 % (0.0-1.0); %Eosinophils 2.1 % (0.0-10.0); %Lymphocytes 33.9 % (21.0-51.0); %Monocytes 5.7 % (0.0-10.0); %Neutrophils 58.1 % (42.0-75.0); Hemoglobin 11.6 g/dL (14.0-18.0); Mean Corpuscular HGB CONC 32.3 g/dL (32.0-36.0); Mean Corpuscular Volume 83.6 fL (78.0-98.0); Mean Platelet Volume 6.8 fL (7.4-10.4); Platelet Count 250 thou/uL (130-400); RBC Distribution Width 13.2 % (11.5-14.5); White Blood Cell (WBC) Count 8.9 thou/uL (4.8-10.8)
[2018-07-05] MEDS ORDERED: Morphine 4 MG/ML VIAL ONE (16:08)
[2018-07-05] MEDS ORDERED: Ondansetron HCl/PF 4 MG/2 ML Vial ONE (16:08)
[2018-07-05 16:09] LABS: ALT (SGPT) 16 U/L (8-55); AST (SGOT) 16 U/L (5-34); Albumin 3.7 g/dL (3.5-5.0); Alkaline Phosphatase 66 U/L (40-150); Anion Gap 13 mmol/L (10-20); BUN (Urea Nitrogen) 8 mg/dL (8.9-20.6); Bilirubin, Total 0.3 mg/dL (0.2-1.2); Calc. Creatinine Clearance 0 mL/min (70-130); Carbon Dioxide 22 mmol/L (22-29); Chloride 109 mmol/L (98-107); Estimated GFR-MDRD 85; Globulin 4.4 g/dL (2.4-3.5); Glucose 96 mg/dL (70-105); Potassium 3.5 mmol/L (3.5-5.1); Protein, Total 8.1 g/dL (6.0-8.3); Sodium 140 mmol/L (136-145)
[2018-07-05] MEDS ORDERED: Sodium Chloride 0.9% 100 ML ONE (16:43)
[2018-07-05] MEDS ORDERED: Piperacillin/Tazobactam 4.5 GM VIAL ONE (16:43)
[2018-07-05 17:11] LABS: INR-International Normal Ratio 1.1; PTT 39.3 SEC (22.9-36.1)
[2018-07-05 17:58] LABS: CKMB 0.6 ng/mL (0-6.6); Troponin I Less than 0.010 ng/mL (< 0.028)
--- NOTE | 2018-07-05 17:59 | RAD ---
PORTABLE AP CHEST X-RAY: 07/05/18 HISTORY: Preoperative evaluation. Fever at home of 102. COMPARISON: 06/21/[address] angiogram thorax on 06/21/16. FINDINGS: There are thin walled cystic structures seen within the lungs bilaterally, more prominent overlying t he right lung base which were seen on the CTA of the chest. There is also a lucency overlying the med iastinum. That lucency was also projecting over the mediastinum on the CT angiogram of the chest like ly related to interstitial opacities and cystic lesions within the lungs. The chest is otherwise unch anged compared to the prior exam with additional linear areas of scarring present. The cardiac silhou ette is magnified by projection. There is blunting of the right lateral costophrenic angle, but this was also present on the prior exam and likely attributable to pleural and parenchymal scarring. No ot her interval change. IMPRESSION: Chronic lung changes including thin walled cystic structures in the lungs bilaterally, better seen on CTA of the chest in 2016. Lucency overlying the mediastinum was also seen on the application internship view of the c hest on CTA examination and unchanged from that study. POS: ALEENA
[2018-07-05] MEDS ORDERED: Ondansetron ODT 4 MG TAB SL PRN (18:54)
[2018-07-05] MEDS ORDERED: Acetaminophen 325 MG TAB PO PRN (18:54)
[2018-07-05] MEDS ORDERED: Ondansetron HCl/PF 4 MG/2 ML Vial IVP PRN (18:54)
[2018-07-05] MEDS ORDERED: Morphine 4 MG/ML VIAL SLOW IVP PRN (18:56)
[2018-07-05 18:58] VITALS: BMI 43.0
[2018-07-05] MEDS ORDERED: Sodium Chloride 0.9% 1,000 ML IV SCH (19:00)
--- NOTE | 2018-07-05 22:33 | MRI ---
MRI PELVIS WITH AND WITHOUT IV CONTRAST 07/05/18 HISTORY: Nonhealing decubitus ulceration for many months. Patient now has increased pain and intermittent feve r and chills. FINDINGS: There is a defect seen within the posterior subcutaneous tissues posterior to the level of the coccyx with associated skin thickening with mild enhancement at the margins of the wound in this region. T here is edema with associated enhancement involving the gluteus musculature suggesting myositis which is near the level of the soft tissue wound/decubitus ulceration. There is mild signal alteration see n within the region of the coccyx suggesting osteitis and with question minimal enhancement. This may be related to chronic osteomyelitis. There is no evidence of a fluid collection seen to suggest an abscess. There is edema as well as enhancement seen involving the sacral ala bilaterally. The signal abnormali ty also appears to involve the sacroiliac joints bilaterally, more prominent and asymmetrically great er on the left with probable minimal signal alteration involving the iliac bone, especially on the le ft. While findings suggest this may be related to sacral insufficiency fractures, the enhancement wit hin the adjacent sacroiliac joints with abnormal signal suggests that this could be related to septic arthritis of the sacroiliac joints, especially if patient is not ambulating. There is enlargement and enhancement of sacral nerve roots. This may be related to infectious or infl ammatory process as well. The urinary bladder has a normal CT appearance. No enlarged lymph nodes are seen in the visualized pe lvis on this exam. IMPRESSION: 1. 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 There is no fluid collection seen to suggest an abscess. 2. Decubitus ulceration with enhancement at the margins of the area of ulceration. Again, no und erlying fluid collection is present. 3. Signal alteration within the region of the coccyx which has the appearance suggestive of oste itis or possibly chronic osteomyelitis. 4. Findings which may be related to sacral insufficiency fractures; however, the enhancement wit hin the sacroiliac joints with abnormal signal suggests that this could be related to septic arthriti s of the sacroiliac joints, especially if patient is not ambulating. 5. Enlargement and enhancement of sacral nerve roots which may be within normal limits, but find ings could be related to an inflammatory process or possibly infectious in etiology. 6. Above findings reviewed with Dr. Fuller who is in agreement with the above findings and ass essment. POS: ALEENA
[2018-07-05] MEDS ORDERED: Piperacillin/Tazobactam 4.5 GM in Sodium Chloride 0.9% 100 ML IVPB SCH (23:59)
[2018-07-06] MEDS ORDERED: Senokot 8.6 MG TAB PO PRN (03:36)
[2018-07-06] MEDS ORDERED: Bisacodyl 5 MG TAB PO PRN (03:36)
[2018-07-06] MEDS ORDERED: Vancomycin HCl 1 GM in Premix Bag 1 BAG IVPB SCH (04:00)
[2018-07-06] MEDS ORDERED: traMADol HCl 50 MG TAB PO PRN ×2 (04:13→18:04)
[2018-07-06] MEDS ORDERED: Dextrose 5% in Water 1,000 ML IV PRN (04:14)
[2018-07-06] MEDS ORDERED: Dextrose 50% Abboject 50 ML SYRINGE SLOW IVP PRN (04:14)
[2018-07-06] MEDS ORDERED: HumaLOG 300 UNITS/3 ML VIAL SC PRN (04:14)
[2018-07-06] MEDS: Vancomycin HCl 1.5 GM in Sodium Chloride 0.9% 250 ML 300 ML IVPB SCH ×2 (05:07→19:22)
--- NOTE | 2018-07-06 05:16 | HP ---
CHIEF COMPLAINT: Nonhealing ulcer at the coccygeal region. HISTORIAN: The patient's , through a beader who is a 21-year-old daughter and also with a tr [employer] phone. HISTORY OF PRESENT ILLNESS: This is a 47-year-old male with past medical history of diabetes mellitu s, nonhealing sacral decubitus, presenting to the ED with nonhealing sacral decubitus, which has been ongoing for several months. The patient saw Dr. Martin in the [facility] and patient was sen t to the ED for evaluation since patient's ulcer has not been healing. Per Dr. Martin's notes, davy anaya follows with Dr. Shelton at [facility] and patient has been having this sacral decubitus, which occurs spontaneously. The patient was seen by Dr. Martin since 03/2018 and patient was evaluated and was given wound VAC in the outpatient [facility]; however, the patient has b een having fevers, chills at home and says the sacral decubitus has not been healing and suspicion fo r possible osteomyelitis is raised. Therefore, patient is sent to the ED to be evaluated and perhaps to have surgical debridement. REVIEW OF SYSTEMS: Positive for fever, chills, pain at the sacral decubitus and otherwise as documen yonny in the HPI. All other systems were reviewed and are negative. PAST MEDICAL HISTORY: Significant for Langerhans emphysema, diabetes mellitus. PAST SURGICAL HISTORY: Significant for right foot surgery, appendectomy, chest tube placement on . PSYCHIATRIC HISTORY: No previous psychiatric history noted. SOCIAL HISTORY: Patient lives at home with the daughter and . Patient uses tobacco, smokes ciga rettes daily. Patient has smoked for 30 years. Patient smoked three cigarettes a day. The patient quit in 2016. ALLERGIES: No known drug allergies. FAMILY HISTORY: Reviewed and noncontributory to this hospital visit. CURRENT MEDICATIONS: 1. Patient takes Symbicort 160 mcg/4.5 mcg 2. Proventil 2 puff inhaler every 4 hours p.r.n. 3. Metformin 500 mg. 4. Glipizide 5 mg daily. PHYSICAL EXAMINATION: VITAL SIGNS: In the ED, the patient's blood pressure was 119/60, heart rate was 74, respiratory rate of 18, oxygen saturation of 96% on room air. GENERAL APPEARANCE: The patient is lying on his left side, not in acute distress. HEENT: Normocephalic, atraumatic. Pupils are equally round and reactive to light. Extraocular move ments are intact. No scleral icterus. NECK: Trachea is midline. No JVD. Supple. Mucous membranes are moist. LUNGS: Clear to auscultation bilaterally. No wheezes, no rales, no rhonchi is appreciated. CARDIOVASCULAR: Positive S1, S2. No murmurs, no gallops and no rubs appreciated. ABDOMEN: Obese abdomen, no distention, no tenderness. Positive bowel sounds in all quadrants. No m asses. No pulsatile masses. No peritoneal signs. No rigidity appreciated. BACK: Patient has a sacral decubitus stage IV, length of 5 cm, width of about 2 cm with some eschar present. EXTREMITIES: Upper extremity, patient has 5/5 upper extremity strength, good pulses bilaterally. Le ft lower extremity, the patient has 5/5 lower extremities strength, good pulses at the lower extremit ies. SKIN: Patient do have stage IV sacral decubitus. NEUROLOGIC: Cranial nerves II-XII grossly intact. No focal neurologic deficits noted. IMAGING: EKG: A 12-lead EKG showed sinus rhythm with a IL interval of 138. Chest x-ray showed chrome tanner mik lung changes including thin walled cystic structures in the lungs bilaterally better seen on CTA of the chest in 2016, lucency overlying the mediastinum was also seen on the security and compliance analyst view of the chest on CTA examination and unchanged from that study. Next, pelvis MRI showed myositis involving the glu teus baudilio musculature bilaterally. There is no fluid collection seen to suggest an abscess. Decu bitus ulceration with enhancement at the margins of the area of ulceration. Again, no underlying flu id collection is present. Signal alteration within the region of the coccyx, which has the appearanc e suggestive of osteitis or possibly chronic osteomyelitis findings, which are thought to be most lik luz related to septic arthritis involving the sacroiliac joints bilaterally, especially asymmetric gr eater on the left. Enlargement of the enhancement of the sacral nerve roots, which will be related t o inflammatory process or possible infectious in etiology. LABORATORY DATA: WBC 8.9, hemoglobin 11.6, hematocrit 36.0, platelets 250. PT 14.0, INR 1.1, PTT 39 .3. Electrolytes, sodium 140, potassium 3.5, chloride 109, carbon dioxide 22, anion gap 13, BUN 8 an d creatinine 0.95. C-reactive protein 2.53. BNP less than 10. ASSESSMENT AND PLAN: 1. This is a 47-year-old male being admitted for nonhealing sacral ulcer, likely underlying chronic osteomyelitis. At this point, we will continue the patient on vancomycin and we will get ID on consu lt. Surgery has already been consulted and evaluated the patient. Patient has been made n.p.o. Pat ient will possibly undergo debridement. We will follow up with surgery. We will get Wound Care cons ult. We will follow up with the patient. 2. Diabetes mellitus type 2. Continue patient on sliding scale. We will hold metformin and glipizi de at this time. 3. History of Langerhans emphysema. We will continue patient on DuoNeb treatments, and Symbicort. We will continue to follow the patient closely. 4. Deep venous thrombosis/gastrointestinal prophylaxis. We will do Pepcid for GI prophylaxis. We w ill do Lovenox for DVT prophylaxis. DISPOSITION: The patient has been admitted to medicine floor. We will encourage nurses to turn alan ent per protocol to prevent further ulcers and will follow up with surgery. We will follow up with I nfectious Disease regarding their recommendation.
[2018-07-06] MEDS: Mometasone/Formoterol 120 PUFF INHALER INH SCH ×2 (05:58→19:00)
[2018-07-06] MEDS: Famotidine 20 MG TAB PO SCH ×2 (08:10→19:22)
[2018-07-06] MEDS: Enoxaparin Sodium 40 MG/0.4 ML SYRINGE SC SCH (08:10)
[2018-07-06] MEDS ORDERED: Succinylcholine Chloride 20 MG/ML 10 ml SYRINGE FS ONE (11:25)
[2018-07-06] MEDS ORDERED: PROPOFOL 200 MG/20 ML VIAL ONE (11:25)
[2018-07-06] MEDS ORDERED: Lidocaine 1% PF 5 ML VIAL ONE (11:25)
[2018-07-06] MEDS ORDERED: Ketorolac Tromethamine 30 MG/ML VIAL ONE (11:25)
[2018-07-06] MEDS ORDERED: PHENYLEPHRINE-NS 100 MCG/ML 10 ML SYRINGE ONE (11:25)
[2018-07-06] MEDS ORDERED: Ondansetron HCl/PF 4 MG/2 ML Vial ONE (11:25)
--- NOTE | 2018-07-06 15:22 | PDOC.PN ---
- Subjective Encounter Start Date: 07/06/18 Encounter Start Time: 12:20 -: old records requested/rev PT seen and examined, chart reivewed in its entirety, this is my first visit with this patient admitted overnight for infected stage IV sacral decub and possible osteo, Dr Martin possibly ot take to Or No f/C, no N/V/d/C, no CP or sOB. only complaint is pain to wound area. all systems reviewed and neg x as per HPI - Objective Resuscitation Status: Resuscitation Status FULL:Full Resuscitation MAR Reviewed: Yes Vital Signs & Weight: Vital Signs (12 hours) Temp Pulse Resp BP BP Pulse Ox 07/06/18 11:16 98.8 F 87 16 95/61 92 L 07/06/18 08:00 98.7 F 81 16 94 L 07/06/18 07:54 98.7 F 81 16 87/54 L 94 L 07/06/18 05:58 84 16 94 L 07/06/18 05:50 98.2 F 87 22 H 106/67 90 L Weight Weight 235 lb 5 oz Result Diagrams: 07/05/18 15:29 07/05/18 15:29 Additional Labs: Accuchecks 07/06/18 07/06/18 07/05/18 11:16 05:57 19:38 POC Glucose 103 106 93 Radiology Reviewed by me: Yes EKG Reviewed by me: Yes Phys Exam - Physical Examination Constitutional: NAD HEENT: PERRLA, moist MMs, sclera anicteric, oral pharynx no lesions Neck: no nodes, no JVD, supple, full ROM Respiratory: no wheezing, no rales, no rhonchi, clear to auscultation bilateral Cardiovascular: RRR, no significant murmur, no rub Gastrointestinal: soft, non-tender, no distention, positive bowel sounds Musculoskeletal: no edema, pulses present Lymphatic: no nodes Psychiatric: normal affect, A&O x 3 Skin: no rash, normal turgor, cap refill <2 seconds Deviation from normal: tunneling stage IV sacral pressure ulce,r chronic, very tender to lisbeth Dx/Plan (1) Sacral decubitus ulcer, stage IV Code(s): L89.154 - PRESSURE ULCER OF SACRAL REGION, STAGE 4 Status: Chronic (2) Infected decubitus ulcer Code(s): L89.90 - PRESSURE ULCER OF UNSPECIFIED SITE, UNSPECIFIED STAGE; L08.9 - LOCAL INFECTION OF THE SKIN AND SUBCUTANEOUS TISSUE, UNSP Status: Acute Qualifiers: Pressure injury stage: stage 4 Qualified Code(s): L89.94 - Pressure ulcer of unspecified site, stage 4; L08.9 - Local infection of the skin and subcutaneous tissue, unspecified (3) DM type 2 (diabetes mellitus, type 2) Status: Chronic Qualifiers: Diabetes mellitus longterm insulin use: without medical terminologist use Diabetes mellitus complication status: with hyperglycemia Qualified Code(s): E11.65 - Type 2 diabetes mellitus with hyperglycemia Comment: diagnosed 03/2018 (4) COPD (chronic obstructive pulmonary disease) Status: Chronic Qualifiers: COPD type: unspecified COPD Qualified Code(s): J44.9 - Chronic obstructive pulmonary disease, unspecified (5) HTN (hypertension) Code(s): I10 - ESSENTIAL (PRIMARY) HYPERTENSION Status: Chronic Qualifiers: Hypertension type: essential hypertension Qualified Code(s): I10 - Essential (primary) hypertension (6) Obesity (BMI 30.0-34.9) Code(s): E66.9 - OBESITY, UNSPECIFIED Status: Chronic (7) Pulmonary histiocytosis Code(s): C96.6 - UNIFOCAL LANGERHANS-CELL HISTIOCYTOSIS Status: Chronic Comment: with prior right lung surgery (8) Tobacco abuse Code(s): Z72.0 - TOBACCO USE Status: Chronic - Plan cont current plan of care, plan discussed w/ family, continue antibiotics, PT/OT * . follow up on surgery plans
--- NOTE | 2018-07-06 16:52 | CON ---
DATE OF CONSULTATION: 07/06/2018 HISTORY OF PRESENT ILLNESS: A 47-year-old has a history of Langerhans histiocytosis with lung involvement with premature areas of emphysematous bullae which resulted in tension pneumothorax in 2016. Patient had a surgical repair and biopsy which established diagnosis of Langerhans cell histiocytosis. Following that, patient has been managed with inhalers, patient has discontinued cigarette smoking as well. After this event, the family and the patient reports that they noticed this a small little pimple or area of swelling in the sacrococcygeal region and this eventually opened up and formed an ulcer which has been present for many months now. He was seen in March. No surgical debridement was done. Patient continued to be monitored in the [facility] and because of worsening appearance, he was admitted. No previous imaging study had been performed, but now he has an MRI showing findings consistent with osteomyelitis of the coccygeal area and myositis. He has marked pain at the site. Denies any headaches, visual symptoms, sore throat, odynophagia, dyspnea or chest pain, no abdominal pain or diarrhea. No genitourinary symptoms. No joint symptoms. Able to move extremities, able to stand up and ambulate, most of the time he stays in bed. Before this event, he was sitting for protracted periods of time. PAST MEDICAL HISTORY: Includes Langerhans cell histiocytosis with pulmonary involvement in blood cultures, emphysema, type 2 diabetes and chronic ischiosacral ulceration. Has had previous history of appendectomy and chest tube placement. 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 ALLERGIES: None. FAMILY HISTORY: Noncontributory. CURRENT MEDICATIONS: Include DuoNeb, Dulcolax, Pepcid, glucagon, inhalers, and vancomycin. PHYSICAL EXAMINATION: VITAL SIGNS: Demonstrate T-max of 98.8, blood pressure 95/61, pulse 87, respirations 16, O2 sat 92%. SKIN: Shows the area of pressure ulceration. There is a pink erythema around the ulcer. The ulcer is very deep and with fresh appearing margins. There is no lymphadenopathy. HEENT: Ocular movements are conjugate. Oral cavity with some only few remaining teeth in the upper maxilla. NECK: Supple, no jugular vein distention. LUNGS: Symmetric clear breath sounds. HEART: S1, S2, regular rate without murmurs. No S3, S4. ABDOMEN: Soft, not distended or tender. No ascites, no organomegaly, no bladder distention. : No genital abnormalities. EXTREMITIES: No joint inflammatory activity noted. Pulses 2+ in dorsalis pedis. Strength in upper and lower extremities appears to be preserved. NEUROLOGIC: Cognitive function is preserved. LABORATORY DATA AND IMAGING DATA: White cell count 8.9, hemoglobin 11.6, platelets 250 with normal differential. INR 1.1, creatinine 0.95. Liver profile normal. Albumin 3.7 and globulin 4.4. Microbiology from 04/18/2018; we have Staph aureus, Enterococcus, E. coli and yeast species from 03/16/2018 with Staph aureus from about the body fluid which is not stated, all of this is from the right-sided chest tube. Pelvis MRI at this time demonstrates myositis in the gluteus baudilio bilaterally. No abscess enhancements of the margin of ulceration. No fluid collection. Signal alteration in the region of the coccyx with appearance suggestive of osteitis or possibly chronic osteomyelitis , possible septic arthritis of sacroiliac joints bilaterally, asymmetric enhancement of sacral nerve roots. Chest x-ray, chronic lung changes with thin walled cystic structures of lungs bilaterally. ASSESSMENT: 1. Langerhans cell histiocytosis with lung involvement. 2. Chronic ulceration of the sacrococcygeal area with or without very clear etiology other than pressure ulceration, but with refractory behavior since it was initially identified about 2 years before. 3. MRI evidence of sacroiliitis possible, coccygeal osteitis/osteomyelitis. DISCUSSION: Differential diagnosis is Langerhans cell histiocytosis associated with a cutaneous and sacroiliac/coccygeal involvement versus an infectious complication due to a pure pressure ulcer phenomenon. Patient is ambulatory and not restricted to chair or bed although he stays sitting during protracted periods of time. Evidently, the wound margins appear to be granulating well. So if there is no bone exposure, one would be concerned with Langerhans cell histiocytosis involvement. The proper procedure will be to biopsy the area and submit for histopathology to see if there is involvement by Langerhans cells which would require a different management as compared with an infectious process which would require protracted antimicrobial tx. MTDD
[2018-07-06] MEDS ORDERED: Acetaminophen 500 MG TAB PO PRN (18:04)
[2018-07-06] MEDS ORDERED: Midazolam HCl 2 mg/2 ml Vial ONE (18:04)
[2018-07-06] MEDS ORDERED: Famotidine/PF 20 mg/2ml Vial ONE (18:04)
[2018-07-06] MEDS ORDERED: Fentanyl 100 MCG/2 ML VIAL ONE ×2 (18:04→19:27)
[2018-07-06] MEDS ORDERED: Ibuprofen 200 MG TAB PO PRN (18:15)
[2018-07-06] MEDS ORDERED: Ondansetron HCl/PF 4 MG/2 ML Vial IVP PRN (18:52)
--- NOTE | 2018-07-07 01:51 | OP ---
DATE OF PROCEDURE: 07/06/2018 PREOPERATIVE DIAGNOSES: Nonhealing presacral wound is granulating. MRI suggests osteitis, cannot ru le out osteomyelitis. VAC wound care for over a year without healing post history of Langerhans eosi nophilia. POSTOPERATIVE DIAGNOSES: Nonhealing presacral wound is granulating. MRI suggests osteitis, cannot r ule out osteomyelitis. VAC wound care for over a year without healing post history of Langerhans eos inophilia. PROCEDURE: Excisional resectional debridement, 10 blade scalpel granulation tissue and presacral sca r, capsular tissue without involvement of the sacrum or coccyx, grossly does not resected. SPECIMEN: Submitted for pathology. SURGEON: Dr. Martin ANESTHESIA: General, local, none. FINDINGS: No purulent material and no bone involvement grossly. PROCEDURE IN DETAIL: Patient is taken to the operating room where under general anesthesia in the pr one position, presacral area and buttocks prepared with ChloraPrep, draped in routine fashion. The g ranulation tissue on both sides was debrided sharply and the wound open. There is a capsular scar ti ssue over the sacrum which debrided sharply, excised, all tissue submitted to pathology for evaluatio n. I personally talked to . pathology regarding handling of the tissue and we placed a s instructed. Sacrum and coccyx was not exposed and not involved with obvious osteomyelitis and with MRI was not definitive, this was not resected. Hemostasis gained with the cautery. Surgicel and ga uze applied. Wound packed open wound care. We will apply a wound VAC tomorrow.
[2018-07-07 04:16] LABS: #Eosinphils 0.2 thou/uL (0.0-0.7); #Monocytes 0.3 thou/uL (0.11-0.59); #Neutrophils 2.1 thou/uL (1.40-6.50); %Basophils 0.7 % (0.0-1.0); %Eosinophils 3.8 % (0.0-10.0); %Monocytes 5.8 % (0.0-10.0); %Neutrophils 46.6 % (42.0-75.0); Hemoglobin 10.7 g/dL (14.0-18.0); Mean Corpuscular HGB CONC 32.9 g/dL (32.0-36.0); Mean Corpuscular Volume 85.3 fL (78.0-98.0); Mean Platelet Volume 6.7 fL (7.4-10.4); Platelet Count 210 thou/uL (130-400); RBC Distribution Width 13.1 % (11.5-14.5); Red Blood Cell (RBC) Count 3.82 mill/uL (4.70-6.10); White Blood Cell (WBC) Count 4.6 thou/uL (4.8-10.8)
[2018-07-07 04:41] LABS: Anion Gap 11 mmol/L (10-20); BUN (Urea Nitrogen) 11 mg/dL (8.9-20.6); Calc. Creatinine Clearance 111 mL/min (70-130); Calcium 8.5 mg/dL (7.8-10.44); Carbon Dioxide 28 mmol/L (22-29); Chloride 110 mmol/L (98-107); Estimated GFR-MDRD 62; Glucose 103 mg/dL (70-105); Potassium 3.6 mmol/L (3.5-5.1); Sodium 145 mmol/L (136-145)
[2018-07-07] MEDS: Vancomycin HCl 1.5 GM in Sodium Chloride 0.9% 250 ML 300 ML IVPB SCH ×2 (05:31→17:05)
[2018-07-07] MEDS: Mometasone/Formoterol 120 PUFF INHALER INH SCH ×2 (07:45→18:50)
[2018-07-07] MEDS: glipiZIDE 5 MG TAB PO SCH ×2 (07:52→17:07)
[2018-07-07] MEDS: Famotidine 20 MG TAB PO SCH ×2 (07:52→21:02)
[2018-07-07] MEDS: metFORMIN 500 MG TAB PO SCH ×2 (07:53→17:05)
[2018-07-07] MEDS: Enoxaparin Sodium 40 MG/0.4 ML SYRINGE SC SCH (07:53)
[2018-07-07] MEDS: traMADol HCl 50 MG TAB PO PRN ×2 (07:57→11:57)
[2018-07-07 17:05] LABS: Vancomycin, Trough 27.8 ug/mL
--- NOTE | 2018-07-07 19:52 | PRG ---
DATE OF SERVICE: 07/07/2018 SUBJECTIVE: Patient had a procedure by Dr. Martin, some debridement, tissue sample was submitted. The operating room granulation tissue in both sides were debrided sharply and wound open. There is a capsular scar tissue over the sacrum which was debrided sharply, excised. Tissue submitted for pathology. The sacrum and coccyx was not exposed and not involved and this was left without debridement. ASSESSMENT AND DISCUSSION: Langerhans cell histiocytosis with lung involvement , chronic ulceration in sacrococcygeal area without clear etiology other than pressure ulceration, but with refractory behavior, MRI evidence of sacroiliitis ileitis and sacrococcygeal involvement and again the differential diagnosis of possible Langerhans cell histiocytosis versus just a pure pressure wound. MTDD
[2018-07-08] MEDS: Mometasone/Formoterol 120 PUFF INHALER INH SCH (06:34)
[2018-07-08] MEDS: glipiZIDE 5 MG TAB PO SCH (08:50)
[2018-07-08] MEDS: Famotidine 20 MG TAB PO SCH (08:50)
[2018-07-08] MEDS: metFORMIN 500 MG TAB PO SCH (08:51)
[2018-07-08] MEDS: Enoxaparin Sodium 40 MG/0.4 ML SYRINGE SC SCH (08:51)
[2018-07-08 11:01] VITALS: BP 118/74; TEMP 98.2
--- NOTE | 2018-07-08 11:24 | DIS ---
PRIMARY CARE PHYSICIAN: Mattie Uribe PA-C PRIMARY SURGEON: Dr. Jarred Martin DATE OF ADMISSION: 07/05/2018 DATE OF DISCHARGE: 07/08/2018 DISCHARGE DIAGNOSES: 1. Nonhealing stage 4 sacral decubitus, being present on admission. 2. Wound infection. 3. Osteomyelitis ruled out. 4. Diabetes mellitus type 2. 5. Histiocytosis X with pulmonary involvement. 6. Severe obesity. 7. Essential hypertension. CONSULTATIONS: Dr. Shahab Martin, General Surgery. PROCEDURES: On 07/06/2018 the patient underwent operating room excisional sharp debridement. HISTORY AND PHYSICAL: Mr. Marques Cowan is a 47-year-old male with the above history who has had a chronic wound on his sacrum for 2 years, getting worse, having more pain. Wound Care Center consulted with Dr. Toussaint was saw it on 07/05/2018 and felt there could be underlying osteo, w anted to have him admitted for antibiotics and surgical debridement. We were called for admission. HOSPITAL COURSE: The patient was seen and examined by Dr. Flanagan on arrival to the floor, he was sta rted on IV antibiotics and Surgery was consulted. He was kept n.p.o. Dr. Dillard and Dr. Martin saw the patient on 07/06/2018, the patient did go to the operating room on 0 07/06/2018 for excisional debridement. There was tissue overlying the sacral region. MRI was inconcl usive for osteo, but certainly clinically there was no evidence of osteo. Cultures grew out MSSA and Enterococcus, the patient was transitioned to Augmentin on the day of disc harge and was stable for outpatient followup with wound VAC therapy. PHYSICAL EXAMINATION: The patient was seen and examined on the date of discharge. Discharge plan and disposition discussed with the patient and his mother face to face at the bedside. DISCHARGE MEDICATIONS: 1. Augmentin 500 mg p.o. t.i.d. for 14 days. 2. Glipizide 5 mg p.o. b.i.d. 3. Ibuprofen as needed. 4. Metformin 1000 mg p.o. b.i.d. 5. Tramadol 50 mg p.o. q.i.d. p.r.n. pain to resume, 1-2 tablets. FOLLOWUP APPOINTMENTS: 1. Primary care physician in a week. 2. Wound Care Center as scheduled. 3. Dr. Martin in 2 weeks. DISCHARGE CONDITION: Stable. DISPOSITION: Discharged home via private vehicle with home health care for VAC changes and outpatien t wound care followup. DISCHARGE DIET: Diabetic, heart healthy recommended. DISCHARGE ACTIVITY: As tolerated. The patient was encouraged to completely offload the sacral area.
[2018-07-08] MEDS ORDERED: Vancomycin HCl 1 GM in Premix Bag 1 BAG IVPB SCH (17:00)
--- NOTE | 2018-07-09 22:28 | EKG ---
Test Reason : Blood Pressure : / mmHG Vent. Rate : 073 BPM Atrial Rate : 073 BPM P-R Int : 138 ms QRS Dur : 088 ms QT Int : 420 ms P-R-T Axes : -22 046 032 degrees QTc Int : 462 ms Normal sinus rhythm Normal ECG Confirmed by MARLENE JOHNSON, KIM ([id number]), business editor GEORGETTE WALDRON ([id number]) on 07/09/2018 10:27:52 PM Referred By: Confirmed By:KIM ROSARIO MD
== END 2018-07-08 13:43 | disposition home health service (06) | DRG 573 ==
LOC: ERS 14:29 → T4-A 16:23
PROVIDERS: ADMIT Internal Medicine Infectious Disease; ATTEND Internal Medicine Infectious Disease
PROC: 0WBL0ZZ Excision of Lower Back, Open Approach (ICD-10-PCS; principal; 2018-07-06)
DX: L89.154 Pressure ulcer of sacral region, stage 4 (principal); Z68.41 Body mass index [BMI] 40.0-44.9, adult; C96.6 Unifocal Langerhans-cell histiocytosis; C78.01 Secondary malignant neoplasm of right lung; E11.622 Type 2 diabetes mellitus with other skin ulcer; Z79.84 Long term (current) use of oral hypoglycemic drugs; F17.210 Nicotine dependence, cigarettes, uncomplicated; E66.01 Morbid (severe) obesity due to excess calories; I10 Essential (primary) hypertension; B95.61 Methicillin susceptible Staphylococcus aureus infection as the cause of diseases classified elsewhere; B95.2 Enterococcus as the cause of diseases classified elsewhere; E11.65 Type 2 diabetes mellitus with hyperglycemia
CPT/HCPCS: 36415; 36416; 71045; 72197; 80048; 80053; 80202; 82553; 83605; 83880; 84484; 85025; 85610; 85652; 85730; 86140; 87040; 87070; 87077; 87186; 87205; 88304; 93005; 96365; 96375; J1650; J1885; J2001; J2250; J2270; J2405; J2543; J2704; J3010; J3370; J7050; S0028

== ENCOUNTER 2018-07-11 14:50 | Outpatient (CLI) | payer SELFPAY ==
--- NOTE | 2018-07-11 17:27 | PRG ---
DATE OF SERVICE: 07/11/2018 HISTORY: Mr. Don Cowan is a very pleasant 47-year-old gentleman accompanied by his and daughter who presents to the Wound Center for evaluation of a sacral wound. Since the patient's visit on 06/27/2018, Mr. Marques Cowan was admitted to [facility] where he underwent excisional resectional debridement on 07/06/[address] Jarred Martin. Capsular scar tissue over the sacrum was submitted to pathology for histologic examination. MRI of the pelvis was obtained on 07/05/2018, which revealed signal alteration within the region of the coccyx with an appearance suggestive of osteitis or possibly chronic osteomyelitis. Mr. Marques Cowan was also seen in consultation by Infectious Diseases during his hospital stay. The results of the histologic examination are still pending. PHYSICAL EXAMINATION: VITAL SIGNS: Temperature 98.0, pulse 87, respirations 20, blood pressure 134/ 75. Accu-Chek 74. BACK: A sacral wound is present, which measures approximately 3.0 x 5.0 cm. The depth of the wound is approximately 5.5 cm. No purulent drainage is associated with the wound. No erythema of the skin surrounding the wound is present. No maceration of the skin of the periwound is noted. Two lesions inferior to the sacral wound are also noted on exam today, one surrounding the anus. ASSESSMENT AND PLAN: 1. Sacral wound as described above. Negative pressure therapy will be continued with dressing changes of the wound VAC here in the Wound Center. The patient also has 2 skin lesions inferior to the sacral wound, one of which is surrounding the anus. The patient will be seen by Dr. Martin in 1 week. I will see Mr. Marques Cowan again in 2 weeks. I have explained to the patient and his and daughter that the results of the histologic examination are still pending. 2. Chronic obstructive pulmonary disease. 3. 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 4. Diabetes mellitus. The patient's Accu-Chek in clinic today is 74. The patient has been reminded that for optimal wound healing, his blood glucoses should remain below 150. 5. Hypertension. MTDD
== END 2018-07-11 14:51 | disposition home or self-care (01) ==
LOC: WCC 14:50
PROVIDERS: ATTEND Family Medicine
DX: T81.89XD Other complications of procedures, not elsewhere classified, subsequent encounter (principal); C96.6 Unifocal Langerhans-cell histiocytosis; J43.9 Emphysema, unspecified; E11.9 Type 2 diabetes mellitus without complications; I10 Essential (primary) hypertension; L98.9 Disorder of the skin and subcutaneous tissue, unspecified

== ENCOUNTER 2018-07-12 14:03 | Emergency (ER) | payer SELFPAY ==
[2018-07-12] MEDS ORDERED: Lorazepam 2 MG/ML VIAL ONE (15:47)
[2018-07-12] MEDS ORDERED: Fentanyl 100 MCG/2 ML VIAL ONE (15:47)
== END 2018-07-12 16:09 | disposition home or self-care (01) ==
LOC: ERS 14:03
DX: G89.18 Other acute postprocedural pain (principal); E11.9 Type 2 diabetes mellitus without complications; J45.909 Unspecified asthma, uncomplicated; F17.210 Nicotine dependence, cigarettes, uncomplicated; Z79.84 Long term (current) use of oral hypoglycemic drugs; Z79.899 Other long term (current) drug therapy
CPT/HCPCS: 96372; J2060; J3010

== ENCOUNTER 2018-07-14 13:56 | Outpatient (CLI) | payer SELFPAY ==
[~2018-07-14 13:56] MED LIST changes: +Lidocaine 4% Topical Sol 50 ML BOT ONE
--- NOTE | 2018-07-14 17:45 | PRG ---
DATE OF SERVICE: 07/14/2018 WOUND CARE EVALUATION SUBJECTIVE: A 47-year-old male patient, who has a history of cystic lung disease, status post 2015 right upper lobe pulmonary wedge biopsy revealing pulmonary Langerhans cell histiocytosis. The patient had developed a sacral wound spontaneously, nonhealing. He underwent biopsies recently. Bio psies have been sent out for an outside institution for special staining, results are pending. The p nicolás reports to wound care and I was asked to look at his wound. The wound VAC is on his sacral wo und. I was called to evaluate the perianal wound that extends significantly outside the anus area wi th granulation tissue, is painful. This has a similar appearance to the presacral area. There was another area in the perineum. It is approximately 3 cm in diameter, similar in appearance. This was felt by Dr. Dillard possibly represent soft tissue involvement of the same disease process. We are awaiting the biopsy results. The patie nt had a colonoscopy at age 41 and was told that it was normal. He is having constipation. Rectal e xam was unremarkable. There was no evidence of infection. ASSESSMENT AND PLAN: Extensive soft tissue disease, diagnosis uncertain, pathology pending. Await f inal pathology results. Consider biopsy of the perianal area and colonoscopy in the near future. We will see him in Wound Care next week. Hopefully, the outside review will be available.
== END 2018-07-14 13:57 | disposition home or self-care (01) ==
LOC: WCC 13:56
PROVIDERS: ATTEND Family Medicine
DX: L89.159 Pressure ulcer of sacral region, unspecified stage (principal)
CPT/HCPCS: 97605; A4218; J2001

== ENCOUNTER 2018-07-18 13:29 | Outpatient (CLI) | payer OTHER, SELFPAY | END 2018-07-18 13:30 | disposition home or self-care (01) | LOC: WCC 13:29 | PROVIDERS: ATTEND Family Medicine | DX: T81.89XD Other complications of procedures, not elsewhere classified, subsequent encounter (principal) | CPT/HCPCS: 97605 ==

== ENCOUNTER 2018-07-21 14:44 | Outpatient (CLI) | payer SELFPAY ==
[2018-07-21] MEDS ORDERED: Lidocaine 4% Topical Sol 50 ML BOT ONE (20:24)
[2018-07-21] MEDS ORDERED: Sodium Chloride 0.9% 15 ML NEB ONE (20:24)
--- NOTE | 2018-07-22 02:42 | OP ---
DATE OF PROCEDURE: 07/21/2018 PREOPERATIVE DIAGNOSES: History of Langerhans lung cystitis. Biopsies two years ago, Currently, sac ral wound biopsies obtained 2-1/2 weeks ago. Special stains and final pathology pending to rule out Langerhans dermatitis, now with progressive painful perianal granulating wound in need of biopsy. POSTOPERATIVE DIAGNOSES: History of Langerhans lung cystitis. Biopsies two years ago, Currently, sa cral wound biopsies obtained 2-1/2 weeks ago. Special stains and final pathology pending to rule out Langerhans dermatitis, now with progressive painful perianal granulating wound in need of biopsy. PROCEDURE: Biopsy of perianal skin core biopsy 8 mm core. SURGEON: Dr. Jarred Martin. ANESTHESIA: 1% Xylocaine with epinephrine mixed with 0.5% Marcaine with epinephrine. DESCRIPTION OF PROCEDURE: The patient is in bedside and wound care. Perianal area is prepared with alcohol and anesthetized with local anesthetic. A punch biopsy performed. Specimen was placed carried personally to pathology. Gauze dressing placed in the wound for hemostasis. Patient tolera yonny procedure well. Note, patient has a presacral wound for which a wound VAC has been applied and i t is not healing for over a year. Final biopsy of that lesion is pending. The patient is seen by Dr Sotrmy Dillard in the past inpatient. Consideration for colonoscopy in the future can be given. Pending bi opsy results.
== END 2018-07-21 14:45 | disposition home or self-care (01) ==
LOC: WCC 14:44
PROVIDERS: ATTEND Family Medicine
DX: S31.839A Unspecified open wound of anus, initial encounter (principal); N30.90 Cystitis, unspecified without hematuria; K62.89 Other specified diseases of anus and rectum
CPT/HCPCS: 88305; 97605; A4218; J2001

== ENCOUNTER 2018-07-25 14:29 | Outpatient (CLI) | payer OTHER, SELFPAY ==
[~2018-07-25 14:29] MED LIST changes: +Lidocaine 2% Jelly 5 ML TUBE ONE; -Lidocaine 4% Topical Sol 50 ML BOT ONE
--- NOTE | 2018-07-25 17:57 | HP ---
HISTORY OF PRESENT ILLNESS: A 47-year-old male patient, who has been seen in wound care for nonheali ng wound. He has had more than a year of wound VAC care at another facility without progress in heal ing. Now, I was initially asked to see him regarding this. Two years ago, he had lung wedge resecti on 11/22/[address] Tucker revealing Langerhans pulmonary cell histiocytosis. The patient underwent biopsy of the presacral wound, tissue sent out for special stains. Final pathology reveals changes c onsistent with Langerhans cell histiocytosis involving skin. The patient subsequently had a punch bi opsy performed at bedside and wound care of the perianal process revealing the same diagnosis Langerh ans cell histiocytosis. The patient in Wound Care today had intolerable pain and was sent to the [facility] rgency Room. He will need to be admitted for Oncology and Infectious Disease, Dr. Dillard consultation to consider treatment of this disease, which may include steroids and/or vincristine or other antine oplastic treatment regimens. The patient is unfunded and arrangements will have to be made to treat this unusual problem.
== END 2018-07-25 14:30 | disposition home or self-care (01) ==
LOC: WCC 14:29
PROVIDERS: ATTEND Family Medicine
DX: T81.89XD Other complications of procedures, not elsewhere classified, subsequent encounter (principal)
CPT/HCPCS: 97602; A4218

== ENCOUNTER 2018-07-25 16:59 | Inpatient (IN) | payer MEDICAID, SELFPAY ==
[2018-07-25] MEDS ORDERED: Fentanyl 100 MCG/2 ML VIAL ONE (19:23)
[2018-07-25] MEDS ORDERED: Lorazepam 2 MG/ML VIAL ONE (19:23)
[2018-07-25] MEDS ORDERED: Ketorolac Tromethamine 30 MG/ML VIAL ONE (19:23)
[2018-07-25 19:28] LABS: #Basophils 0.1 thou/uL (0.0-0.2); #Eosinphils 0.2 thou/uL (0.0-0.7); #Monocytes 0.6 thou/uL (0.11-0.59); #Neutrophils 4.1 thou/uL (1.40-6.50); %Basophils 0.9 % (0.0-1.0); %Eosinophils 2.7 % (0.0-10.0); %Lymphocytes 37.7 % (21.0-51.0); %Monocytes 7.1 % (0.0-10.0); %Neutrophils 51.7 % (42.0-75.0); Hemoglobin 11.5 g/dL (14.0-18.0); Mean Corpuscular HGB CONC 31.5 g/dL (32.0-36.0); Mean Corpuscular Hemoglobin 26.8 pg (27.0-31.0); Mean Platelet Volume 6.7 fL (7.4-10.4); Platelet Count 254 thou/uL (130-400); RBC Distribution Width 13.4 % (11.5-14.5); Red Blood Cell (RBC) Count 4.31 mill/uL (4.70-6.10); White Blood Cell (WBC) Count 7.9 thou/uL (4.8-10.8)
[2018-07-25 19:51] LABS: ALT (SGPT) 15 U/L (8-55); AST (SGOT) 22 U/L (5-34); Albumin 3.6 g/dL (3.5-5.0); Alkaline Phosphatase 70 U/L (40-150); Anion Gap 10 mmol/L (10-20); BUN (Urea Nitrogen) 8 mg/dL (8.9-20.6); Bilirubin, Total 0.2 mg/dL (0.2-1.2); Calc. Creatinine Clearance 0 mL/min (70-130); Calcium 8.9 mg/dL (7.8-10.44); Carbon Dioxide 27 mmol/L (22-29); Chloride 109 mmol/L (98-107); Estimated GFR-MDRD 68; Globulin 4.3 g/dL (2.4-3.5); Glucose 100 mg/dL (70-105); Potassium 3.7 mmol/L (3.5-5.1); Protein, Total 7.9 g/dL (6.0-8.3); Sodium 142 mmol/L (136-145)
[2018-07-25 21:07] LABS: Bilirubin Negative (Negative); Blood, Urine Negative (Negative); Clarity CLEAR (Clear); Glucose, Urine (Dipstick) Negative (Negative); Leukocyte Negative (Negative); Nitrite Negative (Negative); Protein, Urine (Dipstick) Negative (Neg-Trace); Specific Gravity, Urine 1.004 (1.002-1.036); Urobilinogen 0.2 mg/dL (0.2-1.0)
[2018-07-25] MEDS ORDERED: Ondansetron ODT 4 MG TAB SL PRN (22:23)
[2018-07-25] MEDS ORDERED: Ondansetron HCl/PF 4 MG/2 ML Vial IVP PRN (22:23)
[2018-07-25] MEDS ORDERED: Sodium Chloride 0.9% 1,000 ML IV SCH (22:23)
[2018-07-25] MEDS: Morphine 4 MG/ML VIAL SLOW IVP PRN (23:23)
[2018-07-26 00:06] VITALS: BMI 42.0
[2018-07-26] MEDS: Morphine 4 MG/ML VIAL SLOW IVP PRN (03:04)
[2018-07-26] MEDS ORDERED: HumaLOG 300 UNITS/3 ML VIAL SC PRN (07:27)
[2018-07-26] MEDS ORDERED: Dextrose 50% Abboject 50 ML SYRINGE SLOW IVP PRN (07:27)
[2018-07-26] MEDS ORDERED: Dextrose 5% in Water 1,000 ML IV PRN (07:27)
[2018-07-26] MEDS ORDERED: Acetaminophen 325 MG TAB PO PRN (07:28)
--- NOTE | 2018-07-26 08:56 | HP ---
CHIEF COMPLAINT: New gluteal abscess. HISTORY OF PRESENT ILLNESS: This is a 47-year-old male with past medical history of diabetes mellitu s type 2, asthma, pneumothorax x2, Langerhans histiocytosis presenting in our ED with worsening pain in his gluteal region and also patient has a history of Langerhans histiocytosis involving the skin t hat has been diagnosed via biopsy. The patient is seen by Dr. Martin and per biopsy that was done on 07/21/2018, the patient has been reporting that he has been having significant worsening pain and th at his pain medication that he takes at home has not been helping. The patient states that since the biopsy he has had a lot of pain. The patient is now being sent by Dr. Martin for patient to see onc ologist and also to be evaluated by Infectious Disease doctor. NOTE: Of note, the patient has history of gluteal wound abscesses which is nonhealing for the past 2 years. The patient has been on wound VAC, but regardless of the treatment that has been given to th e patient, the patient's wound has been nonhealing. Dr. Tucker revealed in the past that the patient does have Langerhans pulmonary cell histiocytosis and on biopsy of the wound which was sent for refer ence labs. Now it has been diagnosed that the patient now has Langerhans cell histiocytosis involvin g the skin which now per Dr. Martin's recommendation, the patient needs Oncology and Infectious Disea se doctor, Dr. Dillard to see the patient and see what course of treatment can be done for the patient. REVIEW OF SYSTEMS: Positive for pain in the patient's gluteal area, otherwise as documented in HPI. The patient does not have any nausea, vomiting, chest pain, palpitations, chills. All other systems were reviewed and are negative. PAST MEDICAL HISTORY: Diabetes mellitus type 2, Langerhans histiocytosis, pneumothorax x2. PAST SURGICAL HISTORY: Right foot surgery, history of appendectomy, chest tube placement in 2016, de bridement of wound of the sacrum. PSYCHIATRIC HISTORY: No psych history on file. SOCIAL HISTORY: The patient is a former tobacco smoker, quit in 2016. Drinks socially, does not do any illicit drugs. ALLERGIES: The patient does not have any known allergies. CURRENT MEDICATIONS: 1. The patient is on metformin 500 mg. 2. Glipizide 5 mg. 3. Tylenol 300 mg/30 mg. PHYSICAL EXAMINATION: VITAL SIGNS: Blood pressures 137/89, pulse 93, respiratory rate of 16, temperature of 98, O2 sat of 94. GENERAL APPEARANCE: The patient is lying in bed on his belly because his gluteal region hurts so muc h, the patient is not able to lay on his back. The patient is alert, oriented to person, place and t sheela. HEENT: Normocephalic, atraumatic. Pupils are equally round and reactive to light. Extraocular move ments are intact. No scleral icterus. CARDIOVASCULAR: Positive S1, S2, regular rate and rhythm. No murmurs or rubs appreciated. NEUROLOGIC: Cranial nerves II-XII grossly intact. No neurological deficits noted. SKIN: The patient has 4 x 3 cm stage III decubitus ulcer with no discharge or bleeding noted. There is also a stage II ulcer along the intergluteal folds with significant pus that was noted. LABORATORY DATA: WBC 7.9, hemoglobin is 11.5, hematocrit is 36.6, platelet of 254. Sodium 142, pota ssium 3.7, chloride 109, carbon dioxide 27, anion gap of 10, BUN of 8, creatinine is 1.15, glucose of 100. Urinalysis is negative. ASSESSMENT AND PLAN: 1. This is a 47-year-old male with Langerhans histiocytosis and gluteal abscesses, being admitted fo r the patient to be evaluated by Oncology and ID physicians. Dr. Martin made this recommendation. A t this point, we are going to admit the patient and we have consulted Oncology and ID. We will follo w up with their recommendations. We will continue patient on current management. We will start alan ent's home medications. We will monitor the patient. 2. Diabetes mellitus type 2. Continue insulin sliding scale. We will hold metformin and glipizide. We will adjust the patient's sliding scale based on sugar. 3. Gluteal pain due to sacral ulcerations. We will continue the patient on morphine as needed for p ain. 4. Deep venous thrombosis and gastrointestinal prophylaxis.
[2018-07-26] MEDS ORDERED: Non-Formulary Item 1 EACH (Budesonide-Formoterol [Symbicort 160-4.5] 1 PUFF) INH SCH (09:00)
[2018-07-26] MEDS: Acetaminophen/Codeine 30-300mg Tablet PO PRN ×3 (09:15→19:18)
[2018-07-26] MEDS: Enoxaparin Sodium 40 MG/0.4 ML SYRINGE SC SCH (09:17)
[2018-07-26] MEDS: Bisacodyl 5 MG TAB PO PRN (09:28)
[2018-07-26] MEDS ORDERED: Mometasone/Formoterol 120 PUFF INHALER INH SCH (12:30)
--- NOTE | 2018-07-26 13:09 | CON ---
DATE OF CONSULTATION: 07/26/2018 REASON FOR CONSULTATION: Sacral ulcer. HISTORY OF PRESENT ILLNESS: This is a 47-year-old with history of Langerhans cell histiocytosis with lung involvement, diagnosed originally when he developed a spontaneous pneumothorax in 2016 with a b iopsy demonstrated that diagnosis. The patient then developed chronic ulcer in the sacrococcygeal ar ea, which was not clearly a pressure ulceration. It is somewhat spontaneously appeared and progressi vely enlarged. The patient had imaging study, which showed a signal alteration in the region of the coccyx, possible osteitis, possible septic arthritis of the sacroiliac joints. At that time, our imp ression was that he might have Langerhans cell histiocytosis, involvement of the area of the sacrococ cygeal region. Biopsies were taken and they have, in fact, confirmed that diagnosis and patient has been readmitted, because he is unfunded and needs evaluation by probably oncologist for treatment dec janion. Currently, he is fairly well. Denies headaches, visual symptoms, sore throat, odynophagia, d ysphagia. No dyspnea or chest pain, no abdominal pain, mild pain in the presacral region. No neurol ogical symptoms. ALLERGIES: The patient has no known drug allergy. HISTORY: Other details of H and P are available from prior visit note. PHYSICAL EXAMINATION: VITAL SIGNS: Now are normal. His O2 sats are 96%. GENERAL: Appears in no distress. LUNGS: Clear. HEART: S1 and S2, regular rate. ABDOMEN: Soft. The wound appears with fresh granulation tissue at the base, sort of an infiltrated border. LABORATORY DATA: White cell count 7.9, hemoglobin 11, MCV 85, platelets 254. Sodium 142, creatinine 1.15 with normal liver profile, albumin 3.6. Urinalysis normal. Blood cultures no growth thus far. Pathology from the surgical specimen with a final report showing chronic inflammatory process with focal aggregates of histiocytes, compatible with Langerhans cell histiocytosis. Previous sacral absc ess debridements showed also foci of Langerhans cell histiocytosis with immunostaining confirming the diagnosis. ASSESSMENT: Langerhans cell histiocytosis with lung and now proven sacroiliac and presacral skin inv olvement with ulceration. The patient needs consultation with Oncology service. I would not recomme nd any antimicrobial therapy. I do think that the sacroiliac process is infectious in nature, but ne oplastic due to Langerhans cell infiltration.
[2018-07-26] MEDS: Mometasone/Formoterol 120 PUFF INHALER INH SCH (18:06)
[2018-07-26] MEDS ORDERED: PROVENTIL INHALER 6.7 G (200 INHALATIONS) INH SCH (18:30)
[2018-07-26] MEDS ORDERED: Ipratropium Bromide 2.5 ml Neb NEB SCH (18:30)
--- NOTE | 2018-07-26 18:49 | PDOC.PN ---
- Subjective Encounter Start Date: 07/26/18 Encounter Start Time: 12:30 Subjective: pt up in bed complains of pain to his buttocks area - Objective Resuscitation Status: Resuscitation Status FULL:Full Resuscitation Vital Signs & Weight: Vital Signs (12 hours) Temp Pulse Resp BP Pulse Ox 07/26/18 18:03 74 16 07/26/18 12:56 92 L 07/26/18 12:53 88 18 92 L 07/26/18 08:00 96 07/26/18 07:53 98.2 F 70 17 109/66 96 Weight Weight 230 lb I&O: 07/25/18 07/26/18 07/27/18 06:59 06:59 06:59 Intake Total 490 Output Total 1200 Balance -710 Result Diagrams: 07/25/18 19:17 07/25/18 19:17 Additional Labs: Accuchecks 07/26/18 07/26/18 07/26/18 16:49 11:52 04:05 POC Glucose 91 99 104 Phys Exam - Physical Examination Neck: no nodes, no JVD, supple, full ROM Respiratory: no wheezing, no rales, no rhonchi, wheezing present, clear to auscultation bilateral Cardiovascular: RRR, no significant murmur, no rub, gallop, irregular Gastrointestinal: soft, non-tender, no distention, positive bowel sounds Musculoskeletal: no edema, pulses present, edema present Deviation from normal: ulcer to buttocks area Dx/Plan (1) Non-healing ulcer of buttock Code(s): L98.419 - NON-PRESSURE CHRONIC ULCER OF BUTTOCK WITH UNSP SEVERITY Status: Acute (2) HTN (hypertension) Code(s): I10 - ESSENTIAL (PRIMARY) HYPERTENSION Status: Chronic Qualifiers: Hypertension type: essential hypertension Qualified Code(s): I10 - Essential (primary) hypertension (3) Langerhans cell histiocytoses Code(s): C96.6 - UNIFOCAL LANGERHANS-CELL HISTIOCYTOSIS Status: Chronic (4) Obesity (BMI 30.0-34.9) Code(s): E66.9 - OBESITY, UNSPECIFIED Status: Chronic - Plan pt has non healing ulcers in his buttocks -: skin biospy indicates langerhans histiocytosis -: no abx per ID -: will continue pain meds and await onc consult * . Review of Systems - Review of Systems ENT: negative: Ear Pain, Ear Discharge, Nose Pain, Nose Discharge, Nose Congestion, Mouth Pain, Mouth Swelling, Throat Pain, Throat Swelling, Other Respiratory: negative: Cough, Dry, Shortness of Breath, Hemoptysis, SOB with Excertion, Pleuritic Pain, Sputum, Wheezing Cardiovascular: negative: chest pain, palpitations, orthopnea, paroxysmal nocturnal dyspnea, edema, light headedness, other Gastrointestinal: negative: Nausea, Vomiting, Abdominal Pain, Diarrhea, Constipation, Melena, Hematochezia, Other Other: ulcers to buttocks area - Medications/Allergies Allergies/Adverse Reactions: Allergies Allergy/AdvReac Type Severity Reaction Status Date / Time No Known Allergies Allergy Verified 03/11/16 05:57 Medications: Current Medications Acetaminophen (Tylenol) 650 mg PO Q4H PRN PRN Reason: Headache/Fever or Pain Acetaminophen/Codeine Phosphate (Tylenol #3) 1 tab PO Q4H PRN PRN Reason: Pain Last Admin: 07/26/18 13:52 Dose: 1 tab Albuterol/Ipratropium (Duoneb) 3 ml NEB [id number] [facility] Last Admin: 07/26/18 18:03 Dose: 3 ml Bisacodyl (Dulcolax) 10 mg PO DAILYPRN PRN PRN Reason: Constipation Last Admin: 07/26/18 09:28 Dose: 10 mg Dextrose/Water (Dextrose 50%) 25 gm SLOW IVP PRN PRN PRN Reason: Hypoglycemia Enoxaparin Sodium (Lovenox) 40 mg SC 0900 [facility] Last Admin: 07/26/18 09:17 Dose: 40 mg Glipizide (Glucotrol) 2.5 mg PO DAILY [facility] Glucagon (Glucagon) 1 mg IM PRN PRN PRN Reason: Hypoglycemia Dextrose/Water (D5w) 1,000 mls @ 0 mls/hr IV .Q0M PRN PRN Reason: Hypoglycemia Insulin Human Lispro (Humalog) 0 units SC .MILD SLIDING SCALE PRN PRN Reason: Mild Correctional Scale Lidocaine HCl (Lidocaine Jelly 2%) 5 ml TOP PRN PRN PRN Reason: Wound Care Metformin HCl (Glucophage) 250 mg PO DAILY [facility] Mometasone Furoate/Formoterol Fumar (Dulera 200 Mcg/5 Mcg Inhaler) 1 puff INH BID-RT [facility] Last Admin: 07/26/18 18:06 Dose: 1 puff Morphine Sulfate (Morphine) 2 mg SLOW IVP Q4H PRN PRN Reason: Moderate Pain (4-6) Oxycodone HCl (Oxycodone Ir) 5 mg PO Q4H PRN PRN Reason: Pain Sodium Chloride (Flush - Normal Saline) 10 ml IVF Q12HR [facility] Last Admin: 07/26/18 09:17 Dose: Not Given Sodium Chloride (Flush - Normal Saline) 10 ml IVF PRN PRN PRN Reason: Saline Flush
[2018-07-26] MEDS: oxyCODONE 5 MG TAB PO PRN (21:02)
[2018-07-27] MEDS: oxyCODONE 5 MG TAB PO PRN (04:09)
[2018-07-27] MEDS: Mometasone/Formoterol 120 PUFF INHALER INH SCH (06:38)
[2018-07-27] MEDS ORDERED: glipiZIDE 5 MG TAB PO SCH (07:30)
[2018-07-27] MEDS: Enoxaparin Sodium 40 MG/0.4 ML SYRINGE SC SCH (08:50)
[2018-07-27] MEDS: Bisacodyl 5 MG TAB PO PRN (08:53)
[2018-07-27] MEDS ORDERED: metFORMIN 500 MG TAB PO SCH (09:00)
--- NOTE | 2018-07-27 11:08 | CON ---
DATE OF CONSULTATION: 07/27/2018 REASON FOR CONSULTATION: Langerhans histiocytosis. HISTORY OF PRESENT ILLNESS: This is a 47-year-old male with past medical history of Langerh ans histiocytosis of the lung; diabetes, type 2; asthma; history of pneumothorax; presenting to the [facility] with worsening pain in his gluteal region with recent sacral abscess biopsy showing Langerhan s histiocytosis. Patient was seen by Dr. Martin and had resection of this skin lesion on 07/21/2018. The patient has reported significant pain in this area that has been unrelenting, and therefore, he came to the hospital. Since admission to the hospital, the patient's pain has improved, and he has been started on antibiotics. The patient is seen with his and daughter in the room and translat ion is provided by his daughter. Patient states he was diagnosed with Langerhans histiocytosis of th e lung by wedge resection on 11/22/2015. This was done by Dr. Beckford. Patient states he has not se en any doctor to follow up on his histiocytosis diagnosis and states he does not really know what it is. He has had no other evidence of disease until now. He states he has had this lesion in his sacr al area for months and it has progressively worsened. The patient denies any other lesions and also denies fevers, night sweats, weight loss, nausea, vomiting, diarrhea, headaches, blurry vision, dizzi ness. REVIEW OF SYSTEMS: Ten-point review of systems is negative except as per HPI. PAST MEDICAL HISTORY: Langerhans histiocytosis of lung, diabetes, pneumothorax. PAST SURGICAL HISTORY: Right upper lobe wedge biopsy of Langerhans histiocytosis, right foot surgery , appendectomy, sacral wound debridement. SOCIAL HISTORY: Former tobacco smoker, quit in 2016 after diagnosis of Langerhans histiocytosis of t he lung. Social alcohol drinker. Denies illicit drugs. ALLERGIES: No known drug allergies. MEDICATIONS: Reviewed. PHYSICAL EXAMINATION: VITAL SIGNS: Temperature 99.7, pulse 81, respirations 18, O2 of 97% on 2 liters by nasal cannula, bl ood pressure 127/59. GENERAL APPEARANCE: The patient is sitting up in bed eating, in no acute distress. HEENT: Normocephalic, atraumatic. No scleral icterus. CARDIOVASCULAR: Normal S1 and S2. Regular rate and rhythm. No murmurs, rubs, or gallops. RESPIRATORY: Clear to auscultation bilaterally. NEUROLOGIC: Nonfocal. Cranial nerves II-XII grossly intact. SKIN: Large decubitus ulcer. No other suspicious lesions on the skin. LYMPHATICS: No palpable lymphadenopathy. PSYCHIATRIC: Alert, oriented x3. LABORATORY DATA: White blood cells 7.9, hemoglobin 11.5, platelets 254. BUN 8, creatinine 1.15, AST 22, ALT 15, alkaline phosphatase 70, total protein 7.9, albumin 3.6, bilirubin 0.2. IMAGING DATA: MRI pelvis dated 07/05/2018 shows myositis involving the gluteus baudilio musculature b ilaterally; decubitus ulceration with enhancement at the margins of the area of ulceration; signal al teration within the region of the coccyx, which has the appearance suggestive of osteitis or possibly chronic osteomyelitis. Chest x-ray dated 07/05/2018, chronic lung changes including thin walled cys tic structures in the lungs bilaterally, better seen on CTA of the chest in 2016. Lucency overlying the mediastinum was also seen on the cavalry scout view of the chest on the CTA examination and unchanged fro m that study. ASSESSMENT AND PLAN: This is a 47-year-old male with Langerhans histiocytosis with lung inv olvement in 2016 and now skin involvement of the sacral region, presenting with severe pain. Patient 's pain has improved and is currently being treated with antibiotics and has undergone sacral wound d ebridement. Patient has never followed up with an oncologist before for workup of his Langerhans his tiocytosis. Workup I would recommend would include a PET scan and possibly an MRI of the brain; simmons rosa, this can be done on an outpatient basis and is not urgent. The patient does not have insurance, and therefore, we will need to work with social work to help him acquire financial assistance for [facility] exams and for continued followup. The treatment for Langerhans histiocytosis is typically chemot herapy; however, this is not always needed in low-risk isolated disease. We also recommend checking iron studies, B12, and folate and a reticulocyte count to evaluate for patient's anemia, which is lik luz secondary to chronic disease. Histiocytosis can involve the bone marrow, but typically white blo od cells or platelets would be decreased as well, and in this case, they are not, so I do not expect bone marrow infiltration. A PET scan will help better delineate this as well. The patient may follo w up with me at the [facility] upon discharge from the hospital. I will follow up the blood resul ts peripherally. Thank you for the consult.
[2018-07-27 11:12] VITALS: TEMP 98.2
[2018-07-27 12:09] LABS: Reticulocyte Count 1.4 % (0.5-1.5)
[2018-07-27 12:25] LABS: Anion Gap 12 mmol/L (10-20); BUN (Urea Nitrogen) 9 mg/dL (8.9-20.6); Calc. Creatinine Clearance 106 mL/min (70-130); Calcium 8.9 mg/dL (7.8-10.44); Carbon Dioxide 28 mmol/L (22-29); Chloride 108 mmol/L (98-107); Estimated GFR-MDRD 61; Glucose 109 mg/dL (70-105); Potassium 3.6 mmol/L (3.5-5.1)
[2018-07-27 12:27] LABS: Iron 35 ug/dL (65-175); Iron Binding Capacity, Total 314 mcg/dL (261-462)
[2018-07-27 12:35] LABS: Sodium 144 mmol/L (136-145)
[2018-07-27 13:01] LABS: Folate (Folic Acid) 6.1 ng/mL (7.0-31.4)
[2018-07-27 15:35] VITALS: BP 124/70
[2018-07-27] MEDS: Acetaminophen/Codeine 30-300mg Tablet PO PRN (15:57)
--- NOTE | 2018-07-27 21:08 | DIS ---
DATE OF ADMISSION: 07/26/2018 DATE OF DISCHARGE: 07/27/2018 DISCHARGE DIAGNOSES: As of the followin. Sacroiliac and presacral ulceration. 2. Langerhans histiocytosis. 3. Obesity. HOSPITAL COURSE: The patient is a very pleasant 47-year-old male, who initially presented to the [facility] with a significant amount of rectal pain. The patient at this time was seen by Surgery, who st ated that Infectious Disease and Oncology needs to be consulted for further evaluation. The patient has a history which is proven to have a Langerhans histiocytosis in his skin biopsy that was done by the surgeon's office. The patient initially had one ulceration, now has additional 2 more. The alan ent also was seen by Infectious Disease, who did not think he require any IV antibiotics. He was als o seen by Oncology, who recommended an outpatient PET scan and MRI brain and also if needed, may requ giovanny treatment. Also some basic lab work was drawn to make sure that there was no bone marrow infiltr ation. Recommended patient to follow up as an outpatient with Oncology for evaluation. MEDICATIONS: Are as of the following: He is going to continue his Ventolin 1 puff b.i.d., Symbicort 1 puff t.i.d., glipizide 2.5 daily, metformin 250 daily, acetaminophen with Tylenol one q.4 hours p. r.n., folic acid 1 daily, ferrous gluconate 325 daily, Colace with Senna 1 p.o. b.i.d. Again, he was provided with information for Oncology and I have asked the patient's daughter to make sure that he follows up with the oncologist. I have signed the paperwork for his Medicaid which hopefully he will get some help in regards to his expenses. PHYSICAL EXAMINATION: VITAL SIGNS: Temperature of 98.2, pulse 83, respiratory rate 18, oxygen saturation 92% on room air, blood pressure 113/77. GENERAL: He is awake, alert, oriented x3, does not appear in distress. CARDIOVASCULAR: S1, S2 present. No murmurs, rubs or gallops. ABDOMEN: Soft, nontender. Bowel sounds are present x2. EXTREMITIES: No edema. Pedal pulses are present x2. Again, he will follow up with primary and also follow up with Oncology as an outpatient.
== END 2018-07-27 18:02 | disposition home or self-care (01) | DRG 638 ==
LOC: ERS 16:59 → T4-B 21:34
PROVIDERS: ADMIT Internal Medicine; ATTEND Internal Medicine
DX: E11.622 Type 2 diabetes mellitus with other skin ulcer (principal); C96.6 Unifocal Langerhans-cell histiocytosis; Z68.41 Body mass index [BMI] 40.0-44.9, adult; L98.419 Non-pressure chronic ulcer of buttock with unspecified severity; I10 Essential (primary) hypertension; E66.9 Obesity, unspecified
CPT/HCPCS: 36415; 36416; 80048; 80053; 81003; 82607; 82728; 82746; 83540; 83550; 83605; 85025; 85046; 87040; 94640; 96374; 96375; A4216; J1650; J1885; J2060; J2270; J3010; J7620

== ENCOUNTER 2018-08-04 07:54 | Outpatient (CLI) | payer OTHER, SELFPAY ==
--- NOTE | 2018-08-04 15:26 | PET ---
NUCLEAR MEDICINE FDG PET CT: (Positron Emission Tomography) DATE: 08/04/18 HISTORY: 47-year-old male with Langerhans cell histiocytosis. COMPARISON: No prior PET scans. TECHNIQUE: IV injection F-18 Fluorodeoxyglucose (FDG) dose: 10.3 mCi PET and attenuation-correction CT performed from skull base to proximal thighs. FINDINGS: SUV (standard uptake value) numbers given are maximum SUV's: There is poor dentition. There is a focus of uptake in the right mandibular gingiva with SUV of 8.2. This is presumably related to infection/inflammation. Clinical correlation recommended. Bilaterally symmetrically increased uptake in the palatine tonsils with SUV of 6.0. Elongated anteroposterior stripe of increased uptake at one of the right paraspinous muscles, SUV of 7.8, presumably due to muscle contraction activity. There are multiple small focal areas of FDG avidity in the posterior mediastinum and perivertebral sp aline. For example, there is a small lesion in the right upper posterior mediastinum/prevertebral space measuring approximately 1.0 x 0.5 cm with SUV of 3.8. Posterior to that, on the same image slice, th ere is a thin, elongated lesion in the right prevertebral space just anterior to the head of the righ t third rib, with SUV of 3.5 cm, measuring 1.5 x 0.4 cm (both of those lesions mentioned above are at the T3 level). Anterior to the head and neck of the right fifth rib, there is another thin, high CT density lesion m easuring approximately 2.3 x 0.3 cm, with SUV of 5.6. Anterior to that, there is a tiny, 0.8 x 0.4 cm, lesion anterior to the vertebral body with SUV of 3. 2. Then, from the T6-7 level to lower T9 level, there is a vertically elongated 4.4 cm craniocaudal x 1. 5 cm AP x 0.6 cm transverse lesion abutting the right posterior aspect of the esophagus and close to the right anterior surface of the thoracic aorta, with SUV of 4.3. Again noted are the severe cystic changes of the lungs bilaterally, for which the differential diagno sis includes Langerhans cell histiocytosis. Incidentally, the heads of the right third and fourth ribs also have FDG avidity, in addition to the adjacent soft tissue uptake described above. The osseous uptake for the right third rib head has SUV of 3.5, while that of the head of the right fourth rib has SUV of 5.3. None of the lesions in the marilou gs are FDG avid. No abnormal FDG avidity identified within the abdominal cavity or pelvic cavity. There is a thin sliver of increased uptake at the lateral inferior right hemidiaphragm with SUV of 4. 3. There is a tiny right lateral pleural hyperdense nodule with SUV of 2.0, minimally increased uptak e. IMPRESSION: 1. Multiple small, atypical hyperdense lesions in the posterior mediastinum and prevertebral space t o the right of midline, that are FDG avid. The etiology and significance of these is uncertain. Perha ps they are related to Langerhans cell histiocytosis. 2. Severe chronic changes of the lungs, including severe cystic changes, for which the differential diagnosis includes Langerhans cell histiocytosis. 3. Tiny focus of increased uptake involving a small focus at the right peripheral lateral hemidiaphr agm, presumably of same etiology as #1. 4. Foci of increased uptake at right mandibular gingiva and right cervical paraspinal muscle, nonspe cific. Presumably due to etiology other than LCH, but there is uncertainty. MICHELLE Bañuelos POS: [facility]
== END 2018-08-04 07:55 | disposition home or self-care (01) ==
LOC: PET 07:54
PROVIDERS: ATTEND Internal Medicine Hematology & Oncology
DX: C96.0 Multifocal and multisystemic (disseminated) Langerhans-cell histiocytosis (principal); R91.8 Other nonspecific abnormal finding of lung field
CPT/HCPCS: 78815; A9552

== ENCOUNTER 2018-08-10 15:03 | Outpatient (CLI) | payer SELFPAY ==
--- NOTE | 2018-08-10 17:38 | PRG ---
DATE OF SERVICE: 08/10/2018 HISTORY: Mr. Don Cowan is a very pleasant 47-year-old gentleman accompanied by his a nd daughter who [facility] for evaluation of a sacral wound. Since the patient's v isit on 07/11/2018, the patient was admitted to [facility]. [facility], Mr. Marques Cowan was seen in consultation by Oncology. The patient's daughter s tates that Mr. Marques Cowan has an appointment with Oncology tomorrow. For the sacral wound, the p atient has been receiving wet to dry dressing changes. Histologic examination of the tissue from the sacral wound revealed foci of Langerhans cell histiocytosis. PHYSICAL EXAMINATION: VITAL SIGNS: Temperature 98.4, pulse 94, respirations 18, blood pressure 142/84. Accu-Chek 89. BACK: A sacral wound is present which measures approximately 4.7 x 2.6 cm. The patient also has two other perineal wounds on exam today. No purulent drainage is associated with the sacral wound. No erythema of the skin surrounding the sacral wound is present. No maceration of the skin of the periw ound is noted. Two other lesions inferior to the sacral wound present on exam today when surrounding the anus. ASSESSMENT AND PLAN: 1. Sacral wound as described above. As stated above, histologic examination of the tissue from the sacral wound revealed foci of Langerhans cell histiocytosis. The patient was seen by Oncology during his most recent hospital stay and will be seen by Oncology tomorrow. Wet to dry dressing changes wi ll be continued on a daily basis and as needed after cleansing and irrigation with the assistance of the patient's family members. I have explained to the patient and his and daughter that the wou nds should improve once treatment by Oncology is initiated. 2. Chronic obstructive pulmonary disease. 3. 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 4. Diabetes mellitus. The patient's Accu-Chek in clinic today is 89. The patient has been reminded that for optimal wound healing, his blood glucoses should remain below 150. 5. Hypertension.
== END 2018-08-10 15:04 | disposition home or self-care (01) ==
LOC: WCC 15:03
PROVIDERS: ATTEND Family Medicine
DX: E11.622 Type 2 diabetes mellitus with other skin ulcer (principal); L98.429 Non-pressure chronic ulcer of back with unspecified severity; I10 Essential (primary) hypertension; C96.6 Unifocal Langerhans-cell histiocytosis; J43.9 Emphysema, unspecified
CPT/HCPCS: 97602; A4218

== ENCOUNTER 2018-08-13 00:17 | Emergency (ER) | payer SELFPAY ==
[2018-08-13] MEDS ORDERED: Acetaminophen/Codeine 30-300mg Tablet ONE (01:01)
[2018-08-13 01:19] LABS: #Basophils 0.1 thou/uL (0.0-0.2); #Eosinphils 0.2 thou/uL (0.0-0.7); #Lymphocytes 2.5 thou/uL (1.20-3.40); #Monocytes 0.5 thou/uL (0.11-0.59); %Basophils 0.9 % (0.0-1.0); %Eosinophils 2.9 % (0.0-10.0); %Lymphocytes 34.9 % (21.0-51.0); %Monocytes 6.5 % (0.0-10.0); %Neutrophils 54.9 % (42.0-75.0); Mean Corpuscular HGB CONC 31.4 g/dL (32.0-36.0); Mean Corpuscular Hemoglobin 26.7 pg (27.0-31.0); Mean Corpuscular Volume 84.9 fL (78.0-98.0); Mean Platelet Volume 6.6 fL (7.4-10.4); Platelet Count 280 thou/uL (130-400); RBC Distribution Width 12.9 % (11.5-14.5); Red Blood Cell (RBC) Count 4.49 mill/uL (4.70-6.10); White Blood Cell (WBC) Count 7.2 thou/uL (4.8-10.8)
[2018-08-13 01:39] LABS: ALT (SGPT) 14 U/L (8-55); AST (SGOT) 16 U/L (5-34); Albumin 3.7 g/dL (3.5-5.0); Alkaline Phosphatase 75 U/L (40-150); Anion Gap 13 mmol/L (10-20); BUN (Urea Nitrogen) 7 mg/dL (8.9-20.6); Bilirubin, Total 0.3 mg/dL (0.2-1.2); Calc. Creatinine Clearance 0 mL/min (70-130); Calcium 9.1 mg/dL (7.8-10.44); Carbon Dioxide 25 mmol/L (22-29); Chloride 110 mmol/L (98-107); Estimated GFR-MDRD 74; Globulin 4.6 g/dL (2.4-3.5); Glucose 117 mg/dL (70-105); Potassium 3.9 mmol/L (3.5-5.1); Protein, Total 8.3 g/dL (6.0-8.3); Sodium 144 mmol/L (136-145)
== END 2018-08-13 02:32 | disposition home or self-care (01) ==
LOC: ERS 00:17
DX: S31.000A Unspecified open wound of lower back and pelvis without penetration into retroperitoneum, initial encounter (principal); E11.9 Type 2 diabetes mellitus without complications; J45.909 Unspecified asthma, uncomplicated; Z87.891 Personal history of nicotine dependence; Z79.84 Long term (current) use of oral hypoglycemic drugs; Z79.899 Other long term (current) drug therapy; X58.XXXA Exposure to other specified factors, initial encounter
CPT/HCPCS: 36415; 80053; 85025; 99283

== ENCOUNTER 2018-08-29 11:29 | Day surgery (SDC) | payer SELFPAY ==
[2018-08-29] MEDS ORDERED: Sodium Chloride 0.9% 20 ML ONE (11:41)
[2018-08-29] MEDS ORDERED: Ondansetron PF 4 MG/2 ML Vial SLOW IVP SCH (11:45)
[2018-08-29 11:55] VITALS: BP 131/69; TEMP 98.3
[2018-08-29] MEDS ORDERED: CYTARABINE IVPB SCH ×2 (12:00)
[2018-08-29] MEDS ORDERED: METHYLPREDNISOLONE SOD SUCC IVP SCH (12:00)
[2018-08-29] MEDS ORDERED: SODIUM CHLORIDE 0.9% IVP SCH (12:00)
[2018-08-29] MEDS ORDERED: SODIUM CHLORIDE 0.9% IVPB SCH ×2 (12:00)
== END 2018-08-29 15:07 | disposition home or self-care (01) ==
LOC: ONC/OP 11:29
PROVIDERS: ATTEND Internal Medicine Hematology & Oncology
DX: Z51.11 Encounter for antineoplastic chemotherapy (principal); C96.0 Multifocal and multisystemic (disseminated) Langerhans-cell histiocytosis; Z87.891 Personal history of nicotine dependence; Z79.51 Long term (current) use of inhaled steroids; Z79.84 Long term (current) use of oral hypoglycemic drugs; Z79.899 Other long term (current) drug therapy
CPT/HCPCS: 96367; 96375; 96413; 96415; J2405; J2920; J7050; J9100

== ENCOUNTER 2018-08-30 13:50 | Day surgery (SDC) | payer SELFPAY ==
[2018-08-30] MEDS ORDERED: SODIUM CHLORIDE 0.9% IVPB SCH (14:15)
[2018-08-30] MEDS ORDERED: Ondansetron PF 4 MG/2 ML Vial IVP SCH (14:15)
[2018-08-30] MEDS ORDERED: SODIUM CHLORIDE 0.9% IVP SCH (14:15)
[2018-08-30] MEDS ORDERED: METHYLPREDNISOLONE SOD SUCC IVP SCH (14:15)
[2018-08-30] MEDS ORDERED: CYTARABINE IVPB SCH (14:15)
[2018-08-30 14:56] VITALS: BP 113/60; TEMP 97.8
== END 2018-08-30 17:40 | disposition home or self-care (01) ==
LOC: ONC/OP 13:50
PROVIDERS: ATTEND Internal Medicine Hematology & Oncology
DX: Z51.11 Encounter for antineoplastic chemotherapy (principal); C96.0 Multifocal and multisystemic (disseminated) Langerhans-cell histiocytosis; Z79.51 Long term (current) use of inhaled steroids; Z79.84 Long term (current) use of oral hypoglycemic drugs; Z79.899 Other long term (current) drug therapy
CPT/HCPCS: 96367; 96375; 96413; 96415; J2405; J2920; J7050; J9100

== ENCOUNTER 2018-08-31 11:49 | Day surgery (SDC) | payer SELFPAY ==
[2018-08-31] MEDS ORDERED: CYTARABINE IVPB SCH (12:15)
[2018-08-31] MEDS ORDERED: SODIUM CHLORIDE 0.9% IVP SCH (12:15)
[2018-08-31] MEDS ORDERED: SODIUM CHLORIDE 0.9% IVPB SCH (12:15)
[2018-08-31] MEDS ORDERED: Ondansetron PF 4 MG/2 ML Vial IVP SCH (12:15)
[2018-08-31] MEDS ORDERED: METHYLPREDNISOLONE SOD SUCC IVP SCH (12:15)
[2018-08-31 12:16] VITALS: BP 118/67; TEMP 98.5
== END 2018-08-31 16:31 | disposition home or self-care (01) ==
LOC: ONC/OP 11:49
PROVIDERS: ATTEND Internal Medicine Hematology & Oncology
DX: Z51.11 Encounter for antineoplastic chemotherapy (principal); C96.0 Multifocal and multisystemic (disseminated) Langerhans-cell histiocytosis
CPT/HCPCS: 96367; 96375; 96413; 96415; J2405; J2920; J7050; J9100

== ENCOUNTER → 2018-09-01 | Day surgery (SDC) | payer SELFPAY ==
[~2018-09-01] MED LIST changes: +CYTARABINE IVPB SCH; -Lidocaine 2% Jelly 5 ML TUBE ONE; +METHYLPREDNISOLONE SOD SUCC IVP SCH; +Ondansetron PF 4 MG/2 ML Vial IVP SCH; +SODIUM CHLORIDE 0.9% IVP SCH; +SODIUM CHLORIDE 0.9% IVPB SCH; -Sodium Chloride 0.9% 15 ML NEB ONE
[2018-09-01 14:56] VITALS: BP 134/71; TEMP 97.8
== END ==
LOC: ONC/OP 14:01
PROVIDERS: ATTEND Internal Medicine Hematology & Oncology
DX: Z51.11 Encounter for antineoplastic chemotherapy (principal); C96.0 Multifocal and multisystemic (disseminated) Langerhans-cell histiocytosis
CPT/HCPCS: 96367; 96375; 96413; 96415; J1642; J2405; J2920; J7050; J9100

== ENCOUNTER 2018-09-02 10:05 | Day surgery (SDC) | payer SELFPAY ==
[2018-09-02] MEDS ORDERED: METHYLPREDNISOLONE SOD SUCC IVP SCH ×2 (10:30→10:45)
[2018-09-02] MEDS ORDERED: SODIUM CHLORIDE 0.9% IVP SCH ×2 (10:30→10:45)
[2018-09-02] MEDS ORDERED: Ondansetron 2MG/ML MDV 10 MG in Sodium Chloride 0.9% 50 ML IVP SCH (10:30)
[2018-09-02] MEDS ORDERED: CYTARABINE IVPB SCH ×2 (10:30→10:45)
[2018-09-02] MEDS ORDERED: SODIUM CHLORIDE 0.9% IVPB SCH ×2 (10:30→10:45)
[2018-09-02 13:17] VITALS: BP 132/72; TEMP 98
== END 2018-09-02 16:23 | disposition home or self-care (01) ==
LOC: ONC/OP 10:05
PROVIDERS: ATTEND Internal Medicine Hematology & Oncology
DX: Z51.11 Encounter for antineoplastic chemotherapy (principal); C96.0 Multifocal and multisystemic (disseminated) Langerhans-cell histiocytosis
CPT/HCPCS: 96367; 96375; 96413; 96415; J2405; J2920; J7050; J9100

== ENCOUNTER 2018-09-09 07:52 | Day surgery (SDC) | payer SELFPAY ==
[2018-09-08 10:27] VITALS: BMI 42.4
[2018-09-09] MEDS ORDERED: CEFAZOLIN 2 GM/50 ML BAG ONE (08:29)
[2018-09-09] MEDS ORDERED: Ketorolac Tromethamine 30 MG/ML VIAL ONE (08:29)
[2018-09-09 08:57] LABS: #Eosinphils 0.1 thou/uL (0.0-0.7); #Lymphocytes 2.5 thou/uL (1.20-3.40); #Monocytes 0.1 thou/uL (0.11-0.59); #Neutrophils 4.2 thou/uL (1.40-6.50); %Eosinophils 1.2 % (0.0-10.0); %Monocytes 1.8 % (0.0-10.0); %Neutrophils 61.1 % (42.0-75.0); Anion Gap 11 mmol/L (10-20); BUN (Urea Nitrogen) 11 mg/dL (8.9-20.6); Calc. Creatinine Clearance 129 mL/min (70-130); Calcium 9.1 mg/dL (7.8-10.44); Carbon Dioxide 28 mmol/L (22-29); Chloride 102 mmol/L (98-107); Estimated GFR-MDRD 76; Glucose 110 mg/dL (70-105); Hemoglobin 11.7 g/dL (14.0-18.0); MDiff Complete? YES; Mean Corpuscular HGB CONC 31.5 g/dL (32.0-36.0); Mean Corpuscular Hemoglobin 26.2 pg (27.0-31.0); Mean Corpuscular Volume 83.2 fL (78.0-98.0); Mean Platelet Volume 9.8 fL (7.4-10.4); PLT Morphology Comment Appears Decreased; Platelet Count 45 thou/uL (130-400); Polychromasia SLIGHT = 2-3 cells (100X) (0-2/hpf); Potassium 3.6 mmol/L (3.5-5.1); RBC Distribution Width 12.1 % (11.5-14.5); Red Blood Cell (RBC) Count 4.47 mill/uL (4.70-6.10); Sodium 137 mmol/L (136-145)
[2018-09-09] MEDS ORDERED: Fentanyl 100 MCG/2 ML VIAL ONE (09:17)
[2018-09-09] MEDS ORDERED: Midazolam HCl 2 mg/2 ml Vial ONE (09:17)
[2018-09-09] MEDS ORDERED: Lidocaine 2% PF 5 ML VIAL ONE (09:18)
[2018-09-09] MEDS ORDERED: Bupivacaine HCl 0.5%/Epinephrine 1:200,000/PF 30 ml Vial ONE (09:18)
[2018-09-09] MEDS ORDERED: Propofol 500 MG/50 ML VIAL ONE (09:28)
--- NOTE | 2018-09-09 11:39 | OP ---
DATE OF PROCEDURE: 09/09/2018 PREOPERATIVE DIAGNOSIS: Langerhans histiocytosis perianal and presacral. POSTOPERATIVE DIAGNOSIS: Langerhans histiocytosis perianal and presacral with need for antineoplasti c chemotherapy access. PROCEDURE: Right subclavian vein low profile MediPort. SURGEON: Dr. Jarred Martin ANESTHESIA: Intravenous sedation, local 0.5% Marcaine with epinephrine 30 mL mixed with Xylocaine, 1 0 mL. Fluoroscopy used. PROCEDURE IN DETAIL: The patient was taken to the operating room under intravenous sedation, chest a nd neck were prepped with ChloraPrep, draped in routine fashion. Local anesthetic infiltrated into s kin and subcutaneous tissue about the operative site. Trocar catheter infraclavicular approach cannu lated the right subclavian vein. J-wire threaded. Trocar catheter removed. Skin incised and enlarg ed sharply. Incision carried down through skin, subcutaneous tissue, creating a subcutaneous pocket using cautery for hemostasis. Dilator and pull-away sheath placed over the J-wire in the subclavian vein. Dilator and J wire removed as the catheter placed with pull-away sheath under fluoroscopic vis ualization, the tip placed in optimal position in the superior vena cava and catheter tailored to [facility], connected the MediPort placed in subcutaneous pocket, secured with 2 interrupted suture of 3-0 P rolene. Subcutaneous tissues approximated with 3-0 Monocryl, skin with subdermal 4-0 Monocryl and De rmaGlue applied. Fluoroscopic images revealed good line placement and MediPort placement. [place] nee dle used to percutaneously access the MediPort obtaining good return of venous blood and flushed with heparinized saline solution.
--- NOTE | 2018-09-09 12:51 | RAD ---
CHEST ONE VIEW: History: Post op Mediport placement. Comparison: 07-05-18 FINDINGS: A [id number] is in place with tip at the mid SVC. No pneumothorax. Pleural thickening right romel thorax is similar. Extensive increased interstitial markings throughout the lungs. IMPRESSION: Uncomplicated placement of port catheter. POS: [facility]
== END 2018-09-09 12:15 | disposition home or self-care (01) ==
LOC: SDC 07:52
PROVIDERS: ATTEND Specialist
PROC: 0JH63WZ Insertion of Totally Implantable Vascular Access Device into Chest Subcutaneous Tissue and Fascia, Percutaneous Approach (ICD-10-PCS; principal; 2018-09-09)
DX: C96.6 Unifocal Langerhans-cell histiocytosis (principal); Z79.51 Long term (current) use of inhaled steroids
CPT/HCPCS: 36415; 71045; 80048; 85025; C1788; J0131; J0670; J1642; J1885; J2001; J2250; J2704; J3010

== ENCOUNTER 2018-09-16 15:33 | Inpatient (IN) | payer MEDICAID, SELFPAY ==
[~2018-09-16 15:33] MED LIST changes: -CYTARABINE IVPB SCH; +ISOVUE-370 76%-LOCM 1 ML ONE; -METHYLPREDNISOLONE SOD SUCC IVP SCH; -Ondansetron PF 4 MG/2 ML Vial IVP SCH; -SODIUM CHLORIDE 0.9% IVP SCH; -SODIUM CHLORIDE 0.9% IVPB SCH
[2018-09-16 16:04] LABS: Lactate 1.41 mmol/L (0.50-2.20)
--- NOTE | 2018-09-16 16:13 | RAD ---
CHEST 1 VIEW: Date: 09/16/18 HISTORY: Chemo patient. Fever. COMPARISON: 09/09/18. FINDINGS: Chronic changes of the lung parenchyma. Stable bullous change in the right lung base. Stable cardiac silhouette. No pneumothorax or osseous abnormalities. Stable right-sided MediPort catheter. IMPRESSION: Chronic change in lung parenchyma. Superimposed infection/infiltrate cannot be excluded. Continued reyes rveillance. POS: [facility]
[2018-09-16] MEDS ORDERED: Acetaminophen 500 MG TAB ONE (16:15)
[2018-09-16] MEDS ORDERED: Piperacillin/Tazobactam 4.5 GM VIAL ONE (16:16)
[2018-09-16 16:30] LABS: ALT (SGPT) 16 U/L (8-55); AST (SGOT) 12 U/L (5-34); Albumin 3.9 g/dL (3.5-5.0); Alkaline Phosphatase 79 U/L (40-150); Anion Gap 13 mmol/L (10-20); BUN (Urea Nitrogen) 8 mg/dL (8.9-20.6); Bilirubin, Total 0.4 mg/dL (0.2-1.2); Calc. Creatinine Clearance 0 mL/min (70-130); Calcium 9.2 mg/dL (7.8-10.44); Carbon Dioxide 27 mmol/L (22-29); Chloride 105 mmol/L (98-107); Estimated GFR-MDRD 53; Globulin 4.2 g/dL (2.4-3.5); Glucose 126 mg/dL (70-105); Potassium 3.8 mmol/L (3.5-5.1); Protein, Total 8.1 g/dL (6.0-8.3); Sodium 141 mmol/L (136-145)
[2018-09-16 16:33] LABS: Hemoglobin 11.3 g/dL (14.0-18.0); Mean Corpuscular HGB CONC 32.9 g/dL (32.0-36.0); Mean Corpuscular Hemoglobin 27.1 pg (27.0-31.0); Mean Corpuscular Volume 82.3 fL (78.0-98.0); Mean Platelet Volume 5.8 fL (7.4-10.4); Platelet Count 752 thou/uL (130-400); Red Blood Cell (RBC) Count 4.16 mill/uL (4.70-6.10); White Blood Cell (WBC) Count 3.8 thou/uL (4.8-10.8)
[2018-09-16 16:52] LABS: Eosinophils 3 % (0-10); Lymphocytes 81 % (21-51); MDiff Complete? YES; Monocytes 7 % (0-10); Neutrophil 2 % (42-75); Ovalocytes SLIGHT = 2-5 cells (100X) (0-1/hpf); PLT Morphology Comment Appears Increased; Polychromasia SLIGHT = 2-3 cells (100X) (0-2/hpf); Reactive Lymphocytes 7 % (0-10)
[2018-09-16] MEDS ORDERED: Senokot S 8.6-50 MG TAB PO PRN (18:11)
[2018-09-16] MEDS ORDERED: Bisacodyl 5 MG TAB PO PRN (18:11)
[2018-09-16] MEDS ORDERED: VANCOMYCIN IVPB PRN (18:13)
[2018-09-16] MEDS ORDERED: Acetaminophen/Codeine 30-300mg Tablet PO PRN (18:14)
[2018-09-16] MEDS ORDERED: Ondansetron ODT 4 MG TAB SL PRN (18:41)
[2018-09-16] MEDS ORDERED: Ondansetron PF 4 MG/2 ML Vial IVP PRN (18:41)
--- NOTE | 2018-09-16 19:15 | CT ---
CT ABDOMEN AND PELVIS WITH IV CONTRAST: 09/16/18 HISTORY: Abdominal pain and fever. FINDINGS: There are cystic changes in the lower lung herrera which were also noted on exam of 10/13/14. The liver demonstrates changes of fatty infiltration. No calcified gallstones are seen. The spleen, p ancreas, adrenal glands, and kidneys are normal. No free air or free fluid is seen in the abdomen or pelvis. There are prominent lymph nodes in the gastrohepatic ligament measuring up to 1 cm. There are vascular calcifications without evidence of aneurysmal dilatation of the abdominal aorta. A small fa t containing left inguinal hernia is present. There are degenerative changes in the spine. There is f ecal material in the colon. There is abrupt change in caliber in the sigmoid colon in the right lower quadrant. IMPRESSION: 1. Fatty liver. 2. Prominent lymph nodes in the gastrohepatic ligament. 3. Abrupt change in caliber in the sigmoid colon. Colonoscopy would be helpful. POS: [facility]
[2018-09-16] MEDS: Sodium Chloride 0.9% 1,000 ML IV SCH (19:30)
[2018-09-16 19:32] VITALS: BMI 41.3
[2018-09-16] MEDS: Mometasone/Formoterol 120 PUFF INHALER INH SCH (19:42)
[2018-09-16] MEDS: Piperacillin/Tazobactam 4.5 GM in Sodium Chloride 0.9% 100 ML IVPB SCH (21:38)
[2018-09-16] MEDS: Heparin 5,000 UNITS/ML VIAL SC SCH (21:40)
[2018-09-17] MEDS: Acetaminophen 325 MG TAB PO PRN ×4 (00:23→20:47)
--- NOTE | 2018-09-17 03:08 | HP ---
CHIEF COMPLAINT: Fever. HISTORY OF PRESENT ILLNESS: The patient is a very pleasant 48-year-old male who has a history of Bandar gerhans histiocytosis and has a history of sacroiliac and parasacral ulcerations who came into the [facility] with complaints of fevers x1 day. The patient's daughter was at the bedside stated that davy anaya recently has been seen by Oncology and received 5 treatments of chemotherapy for his Langerhans hi stiocytosis. According to the patient's daughter, he has been feeling well. His pain around his ulc erations which are on the rectal area. He has three of those has improved; however, he started havin g fevers x1 day. The patient denies any cough, any diarrhea. He did have some nausea, but no vomiti ng. He does have some generalized abdominal pain. No dysuria also. The patient denies any sick con tacts or any recent travels anywhere or any exposures to any children. PAST MEDICAL HISTORY: As I mentioned earlier. 1. The patient has Langerhans histiocytosis. 2. He has history of diabetes. 3. He has had pneumothorax x2. PAST SURGICAL HISTORY: He has a right foot surgery, appendectomy. He had a chest tube placement in 2016 and debridement of the wound of the sacrum. SOCIAL HISTORY: He is a former smoker, quit in 2016. Drinks occasionally. No illicit drug use. He is a FULL CODE per patient and patient's family. ALLERGIES: He does not have any allergies. REVIEW OF SYSTEMS: All negative except for the ones mentioned above in the HPI. CURRENT MEDICATIONS: This is per the list, patient has been taking glipizide and Tylenol No. 3 and a lso metformin daily. LABORATORY RESULTS: As of the following, WBCs of 3.8, hemoglobin of 11.3, hematocrit of 34.2, platel ets of 752. He does not have any bands. Chemistry: Sodium of 141, potassium of 3.8, creatinine of 1.43, BUN of 8. He did have a chest x-ray, which did not indicate any acute abnormalities. He also had a CT abdomen and pelvis, which indicated fatty liver, prominent lymph nodes in the gastrohepatic ligaments, it indicated abrupt change in the caliber in the sigmoid colon and recommended a colonosco py would be helpful. Also, mentioned fecal material in the colon. PHYSICAL EXAMINATION: VITAL SIGNS: In the ER, he had a temperature of 101.0, he was tachycardic at 112, 98% on room air an d his blood pressure in the ER was in the 110s/60. GENERAL: He is awake, alert, oriented x3, does not appear in any distress. CARDIOVASCULAR: S1, S2 present, tachycardic. LUNGS: Clear to auscultation, rhonchi or wheezes noted. ABDOMEN: Obese. Bowel sounds are present x2. He does have pain upon palpation all over the abdomen area. SKIN: No cuts, lesions, or bruises noted. He does have 3 ulcers which according to patient's h ave improved and how they look compared to what they used to look. EXTREMITIES: Lower extremity, no edema. Pedal pulses are present x2. NEUROLOGIC: Neurovascular sullivan, no focal deficits noted. ASSESSMENT AND PLAN: The patient is a very pleasant 48-year-old male who presents to the hospital wi th: 1. Fever. This is most likely immunocompromised since he did get chemotherapy. He is leukopenic. We will start him on vancomycin and also will give him Zosyn for pseudomonal coverage. Blood culture s were drawn; however, urine has not been collected. So the urine that will be collected will be aft er he received antibiotics. We will also consult Infectious Disease. I did look at his wounds. He does have some mild erythema, but I do not think they appear to be significantly infected and when I looked at it with his . He stated that they actually look better than they did in the past. We will also consult Oncology for further evaluation in order to help us in regards to this fever. 2. History of diabetes. We will put patient on sliding scale insulin and also Accu-Cheks. 3. Mild acute kidney injury. This could be secondary to prerenal. Continue to monitor and start th e patient on some hydration. The patient received a total of 2 liters in the ER. 4. Deep venous thrombosis prophylaxis. We will put patient on subcu heparin.
[2018-09-17] MEDS: Piperacillin/Tazobactam 4.5 GM in Sodium Chloride 0.9% 100 ML IVPB SCH ×2 (03:57→10:13)
[2018-09-17] MEDS: Vancomycin HCl 1 GM in Premix Bag 1 BAG IVPB SCH ×2 (04:45→16:16)
[2018-09-17 06:36] LABS: Anion Gap 10 mmol/L (10-20); BUN (Urea Nitrogen) 6 mg/dL (8.9-20.6); Calc. Creatinine Clearance 106 mL/min (70-130); Calcium 8.7 mg/dL (7.8-10.44); Carbon Dioxide 27 mmol/L (22-29); Chloride 113 mmol/L (98-107); Estimated GFR-MDRD 60; Glucose 154 mg/dL (70-105); Potassium 3.5 mmol/L (3.5-5.1); Sodium 146 mmol/L (136-145)
[2018-09-17 07:05] LABS: Band 2 % (5-11); Hemoglobin 10.4 g/dL (14.0-18.0); Hypochromia SLIGHT = 6-15 cells (100X) (0-5/hpf); Lymphocytes 84 % (21-51); MDiff Complete? YES; Mean Corpuscular HGB CONC 31.6 g/dL (32.0-36.0); Mean Corpuscular Hemoglobin 26.2 pg (27.0-31.0); Mean Platelet Volume 5.5 fL (7.4-10.4); Monocytes 8 % (0-10); Neutrophil 6 % (42-75); PLT Morphology Comment Appears Increased; Platelet Count 732 thou/uL (130-400); Polychromasia SLIGHT = 2-3 cells (100X) (0-2/hpf); RBC Distribution Width 13.1 % (11.5-14.5); Red Blood Cell (RBC) Count 3.97 mill/uL (4.70-6.10); White Blood Cell (WBC) Count 3.4 thou/uL (4.8-10.8)
[2018-09-17] MEDS: Mometasone/Formoterol 120 PUFF INHALER INH SCH ×2 (08:16→19:18)
[2018-09-17] MEDS: Sodium Chloride 0.9% 1,000 ML IV SCH (09:00)
[2018-09-17] MEDS: Heparin 5,000 UNITS/ML VIAL SC SCH ×3 (10:13→20:39)
[2018-09-17] MEDS: Lactated Ringer's 1,000 ML IV SCH ×2 (10:14→16:24)
[2018-09-17] MEDS ORDERED: Lactated Ringer's 500 ML IV SCH (12:00)
--- NOTE | 2018-09-17 13:09 | PDOC.PN ---
- Subjective Encounter Start Date: 09/17/18 Encounter Start Time: 09:15 Subjective: pt up in bed has pain to his rectal area. -: pt had bowl movement last night - Objective Resuscitation Status: Resuscitation Status FULL:Full Resuscitation Vital Signs & Weight: Vital Signs (12 hours) Temp Pulse Resp BP Pulse Ox 09/17/18 10:59 100.5 F H 101 H 20 99/54 L 99 09/17/18 10:36 101.2 F H 107 H 20 110/60 98 09/17/18 08:16 98 16 09/17/18 08:00 96 09/17/18 07:55 102.8 F H 113 H 28 H 129/62 96 09/17/18 04:15 99.9 F H 97 16 104/54 L 96 Weight Weight 233 lb 9.6 oz I&O: 09/16/18 09/17/18 09/18/18 06:59 06:59 06:59 Intake Total 1630 Balance 1630 Result Diagrams: 09/17/18 06:01 09/17/18 06:01 Phys Exam - Physical Examination Neck: no nodes, no JVD, supple, full ROM Respiratory: no wheezing, no rales, no rhonchi, wheezing present, clear to auscultation bilateral Cardiovascular: RRR, no significant murmur, no rub, gallop, irregular Gastrointestinal: soft, non-tender, no distention, positive bowel sounds Musculoskeletal: no edema, pulses present, edema present Dx/Plan (1) Fever Code(s): R50.9 - FEVER, UNSPECIFIED Status: Acute (2) DM type 2 (diabetes mellitus, type 2) Status: Chronic Qualifiers: 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: without fci use Diabetes mellitus complication status: with hyperglycemia Qualified Code(s): E11.65 - Type 2 diabetes mellitus with hyperglycemia Comment: diagnosed 03/2018 (3) Langerhans cell histiocytoses Code(s): C96.6 - UNIFOCAL LANGERHANS-CELL HISTIOCYTOSIS Status: Chronic (4) HTN (hypertension) Code(s): I10 - ESSENTIAL (PRIMARY) HYPERTENSION Status: Chronic Qualifiers: Hypertension type: essential hypertension Qualified Code(s): I10 - Essential (primary) hypertension - Plan pt on abx will change zosyn to cefepime -: urine not collected -: cxr no acute changes -: He does have lymphnodes noted in his ct abd/pel * . Review of Systems - Review of Systems Respiratory: negative: Cough, Dry, Shortness of Breath, Hemoptysis, SOB with Excertion, Pleuritic Pain, Sputum, Wheezing Cardiovascular: negative: chest pain, palpitations, orthopnea, paroxysmal nocturnal dyspnea, edema, light headedness, other Gastrointestinal: negative: Nausea, Vomiting, Abdominal Pain, Diarrhea, Constipation, Melena, Hematochezia, Other - Medications/Allergies Allergies/Adverse Reactions: Allergies Allergy/AdvReac Type Severity Reaction Status Date / Time No Known Allergies Allergy Verified 09/16/18 20:26 Medications: Current Medications Acetaminophen (Tylenol) 650 mg PO Q4H PRN PRN Reason: Headache/Fever/Mild Pain (1-3) Last Admin: 09/17/18 08:11 Dose: 650 mg Acetaminophen/Codeine Phosphate (Tylenol #3) 1 tab PO Q4HR PRN PRN Reason: Moderate Pain (4-6) Bisacodyl (Dulcolax) 10 mg PO DAILYPRN PRN PRN Reason: Constipation Heparin Sodium (Porcine) (Heparin) 5,000 units SC TID [facility] Last Admin: 09/17/18 10:13 Dose: 5,000 units Vancomycin HCl 1 gm/ Device 200 mls @ 200 mls/hr IVPB 0400,1600 [facility] Last Admin: 09/17/18 04:45 Dose: 200 mls Cefepime HCl 2 gm/ Sodium (Chloride) 100 mls @ 200 mls/hr IVPB Q12HR [facility] Lactated Ringer's (Lactated Ringer's) 1,000 mls @ 100 mls/hr IV .Q10H [facility] Last Admin: 09/17/18 10:14 Dose: 1,000 mls Miscellaneous Medication (Pharmacy To Dose) 1 each IVPB ONE PRN PRN Reason: Pharmacy to dose Stop: 10/16/18 18:14 Mometasone Furoate/Formoterol Fumar (Dulera 200 Mcg/5 Mcg Inhaler) 2 puff INH BID-RT [facility] Last Admin: 09/17/18 08:16 Dose: 2 puff Oxycodone HCl (Oxycodone Ir) 5 mg PO Q4H PRN PRN Reason: PAIN-6-10 Senna/Docusate Sodium (Senokot S) 2 tab PO BID PRN PRN Reason: Constipation Sodium Chloride (Flush - Normal Saline) 10 ml IVF Q12HR [facility] Last Admin: 09/17/18 10:14 Dose: Not Given Sodium Chloride (Flush - Normal Saline) 10 ml IVF PRN PRN PRN Reason: Saline Flush
[2018-09-17] MEDS: oxyCODONE 5 MG TAB PO PRN (17:13)
--- NOTE | 2018-09-17 18:31 | CON ---
DATE OF CONSULTATION: 09/17/2018 REASON FOR CONSULTATION: Neutropenic fever. HISTORY OF PRESENT ILLNESS: A 48-year-old well known to us from prior visits who has a diagnosis of Langerhans cell histiocytosis with the lung and soft tissue and bone involvement. Recently diagnosed with a sacral involvement and pelvic involvement with a chronic ulcerated lesion in the intergluteal presacral region. The patient has been receiving Sima-C and Solu-Medrol. He was admitted with feve r, some headaches, no sore throat, no visual symptoms, some back pain, mostly around the area of the ulcer. Little bit of cough, but no sputum production. Some abdominal cramps. No diarrhea, no genit ourinary symptoms. No joint symptoms. No neurological symptoms. PAST MEDICAL HISTORY: Includes Langerhans cell histiocytosis pulmonary bone and soft tissue involvem ent, biopsy proven; type 2 diabetes. PAST SURGICAL HISTORY: Appendectomy, chest tube placement in the past, currently on chemotherapy wit h Sima-C and Solu-Medrol. SOCIAL HISTORY: Used to work in a [employer] before became disabled, former smoking history. ALLERGIES: None. FAMILY HISTORY: Noncontributory. CURRENT MEDICATIONS: Include cefepime, vancomycin, Tylenol, Dulcolax, lactated Ringer's, oxycodone, mometasone inhaler. PHYSICAL EXAMINATION: VITAL SIGNS: T-max 102.8 at 7:00 a.m. and now he was 100.5, BP 100/54, pulse 101, respirations 16-20 , O2 sat 99%. SKIN: Shows the fresh intergluteal wound which is looking better than previously, with smaller dimen sions noted. There is quite a bit of improvement compared with previous findings. The patient has a peripheral IV access and has a port. No right subclavian location. A little bit tender, but not mu ch. A little bit of bruising around the port. No lymphadenopathy. HEENT: Ocular movements conjugate, appears to be in no acute distress. Oral cavity normal. Quite a few teeth in place with some decay and gum disease. NECK: Supple. LUNGS: With symmetric clear breath sounds. HEART: S1, S2, regular rate without murmurs. No S3, S4. ABDOMEN: Soft, mild distention, no ascites, no organomegaly, no bladder distention. EXTREMITIES: No joint inflammatory activity. Pulses 1+ in dorsalis pedis. No edema. He moves extr emities equally with some limitations because of the pain in the presacral region. NEUROLOGIC: Cognitive function appears to be intact. LABORATORY DATA: White cell count is 3.8 and 3.4. Total neutrophil count around 240, platelet count 732, hemoglobin 10.4, MCV 83, creatinine 1.4 now 1.2, glucose 126 and 154, normal liver profile, alb umin 3.9. IMAGING STUDIES: Chest x-ray with chronic interstitial changes noted previously. CT of abdomen and pelvis with an area of transition in sigmoid colon and the radiologist recommended a colonoscopy to e valuate that down the road. The other findings in the abdomen CT with fatty liver, prominent lymph n odes in the gastrohepatic ligament. The patient had a PET scan which showed some areas of uptake pro bably related to the [facility] diagnosis. ASSESSMENT: 1. Langerhans cell histiocytosis with lung and bone and soft tissue involvement, biopsy proven. 2. Chemotherapy with Sima-C plus Solu-Medrol. 2. Fever with neutropenia. DISCUSSION: Patient has no area of focal inflammatory process noticeable at this time and this shoul d be managed as your usual fever and neutropenia patient. He does have a recent port and that is an area of concern and we will have to continue monitoring blood cultures to final results. The current regimen appears to be adequate and may need antifungal in addition to that, depending on the progres s in the next 48 hours. As soon as the white cell count starts to go up, one should see resolution o f inflammatory process.
[2018-09-17] MEDS: Cefepime 2 GM in Sodium Chloride 0.9% 100 ML IVPB SCH (20:39)
[2018-09-17 20:50] LABS: Bilirubin Negative (Negative); Blood, Urine Negative (Negative); Clarity CLEAR (Clear); Glucose, Urine (Dipstick) Negative (Negative); Leukocyte Negative (Negative); Nitrite Negative (Negative); Protein, Urine (Dipstick) Negative (Neg-Trace); Specific Gravity, Urine 1.006 (1.002-1.036); Urobilinogen 0.2 mg/dL (0.2-1.0)
[2018-09-18 03:35] LABS: Vancomycin, Trough 12.9 ug/mL
[2018-09-18] MEDS: Vancomycin HCl 1.25 GM in Sodium Chloride 0.9% 250 ML 250 ML IVPB SCH ×2 (04:05→15:48)
[2018-09-18] MEDS: Lactated Ringer's 1,000 ML IV SCH ×4 (04:10→15:48)
[2018-09-18] MEDS: Mometasone/Formoterol 120 PUFF INHALER INH SCH ×2 (06:22→22:17)
[2018-09-18] MEDS: Acetaminophen 325 MG TAB PO PRN ×2 (06:24→20:09)
[2018-09-18] MEDS: Heparin 5,000 UNITS/ML VIAL SC SCH ×3 (09:14→20:09)
[2018-09-18] MEDS: Cefepime 2 GM in Sodium Chloride 0.9% 100 ML IVPB SCH (09:14)
[2018-09-18 10:03] LABS: Hemoglobin 10.1 g/dL (14.0-18.0); Mean Corpuscular HGB CONC 32.1 g/dL (32.0-36.0); Mean Corpuscular Hemoglobin 26.6 pg (27.0-31.0); Mean Corpuscular Volume 82.6 fL (78.0-98.0); Mean Platelet Volume 5.8 fL (7.4-10.4); Platelet Count 682 thou/uL (130-400); Red Blood Cell (RBC) Count 3.81 mill/uL (4.70-6.10); White Blood Cell (WBC) Count 4.2 thou/uL (4.8-10.8)
[2018-09-18] MEDS: oxyCODONE 5 MG TAB PO PRN ×3 (10:03→20:12)
[2018-09-18 10:15] LABS: Anion Gap 11 mmol/L (10-20); BUN (Urea Nitrogen) 7 mg/dL (8.9-20.6); Calc. Creatinine Clearance 104 mL/min (70-130); Calcium 8.3 mg/dL (7.8-10.44); Carbon Dioxide 22 mmol/L (22-29); Chloride 108 mmol/L (98-107); Estimated GFR-MDRD 58; Glucose 147 mg/dL (70-105); Potassium 3.3 mmol/L (3.5-5.1); Sodium 138 mmol/L (136-145)
[2018-09-18 12:09] LABS: Band 4 % (5-11); Eosinophils 6 % (0-10); Hypochromia SLIGHT = 6-15 cells (100X) (0-5/hpf); Lymphocytes 63 % (21-51); MDiff Complete? YES; Monocytes 10 % (0-10); Neutrophil 8 % (42-75); PLT Morphology Comment Appears Increased; Polychromasia SLIGHT = 2-3 cells (100X) (0-2/hpf); Reactive Lymphocytes 8 % (0-10); Small Platelets MODERATE
--- NOTE | 2018-09-18 15:41 | PDOC.PN ---
- Subjective Encounter Start Date: 09/18/18 Encounter Start Time: 10:30 Subjective: pt up in bed complains of pain around his left ear - Objective Resuscitation Status: Resuscitation Status FULL:Full Resuscitation Vital Signs & Weight: Vital Signs (12 hours) Temp Pulse Resp BP BP BP Pulse Ox 09/18/18 12:00 99.4 F 93 16 114/66 94 L 09/18/18 08:00 95 09/18/18 07:59 101.1 F H 100 20 105/50 L 95 09/18/18 06:22 101.8 F H 99 16 09/18/18 04:19 99.7 F H 99 16 103/53 L 95 Weight Admit Weight 233 lb 9.6 oz Weight 233 lb 9.6 oz I&O: 09/17/18 09/18/18 09/19/18 06:59 06:59 06:59 Intake Total 5780 Output Total 1000 Balance 4780 Result Diagrams: 09/18/18 09:40 09/18/18 09:40 Additional Labs: Accuchecks 09/18/18 07:42 POC Glucose 105 Phys Exam - Physical Examination HEENT: TM's clear erythema to his left mastoid and tragus area Neck: no nodes, no JVD, supple, full ROM Respiratory: no wheezing, no rales, no rhonchi, wheezing present, clear to auscultation bilateral Cardiovascular: RRR, no significant murmur, no rub, gallop, irregular Gastrointestinal: soft, non-tender, no distention, positive bowel sounds Musculoskeletal: no edema, pulses present, edema present Dx/Plan (1) Fever Code(s): R50.9 - FEVER, UNSPECIFIED Status: Acute (2) DM type 2 (diabetes mellitus, type 2) Status: Chronic Qualifiers: Diabetes mellitus groundskeeping yardman insulin use: without groundskeeping yardman use Diabetes mellitus complication status: with hyperglycemia Qualified Code(s): E11.65 - Type 2 diabetes mellitus with hyperglycemia Comment: diagnosed 03/2018 (3) Langerhans cell histiocytoses Code(s): C96.6 - UNIFOCAL LANGERHANS-CELL HISTIOCYTOSIS Status: Chronic (4) HTN (hypertension) Code(s): I10 - ESSENTIAL (PRIMARY) HYPERTENSION Status: Chronic Qualifiers: Hypertension type: essential hypertension Qualified Code(s): I10 - Essential (primary) hypertension - Plan Discussed with ID, will change abx to amber for anaerobic coverage -: blood cx negative * . Review of Systems - Review of Systems ENT: Ear Pain Cardiovascular: negative: chest pain, palpitations, orthopnea, paroxysmal nocturnal dyspnea, edema, light headedness, other Gastrointestinal: negative: Nausea, Vomiting, Abdominal Pain, Diarrhea, Constipation, Melena, Hematochezia, Other Genitourinary: negative: Dysuria, Frequency, Incontinence, Hematuria, Retention , Other - Medications/Allergies Allergies/Adverse Reactions: Allergies Allergy/AdvReac Type Severity Reaction Status Date / Time No Known Allergies Allergy Verified 09/16/18 20:26 Medications: Current Medications Acetaminophen (Tylenol) 650 mg PO Q4H PRN PRN Reason: Headache/Fever/Mild Pain (1-3) Last Admin: 09/18/18 06:24 Dose: 650 mg Acetaminophen/Codeine Phosphate (Tylenol #3) 1 tab PO Q4HR PRN PRN Reason: Moderate Pain (4-6) Bisacodyl (Dulcolax) 10 mg PO DAILYPRN PRN PRN Reason: Constipation Heparin Sodium (Porcine) (Heparin) 5,000 units SC TID [facility] Last Admin: 09/18/18 14:32 Dose: 5,000 units Vancomycin HCl 1.25 gm/ Sodium (Chloride) 250 mls @ 166.667 mls/hr IVPB 0400, 1600 [facility] Last Admin: 09/18/18 04:05 Dose: 250 mls Meropenem 1 gm/ Sodium (Chloride) 100 mls @ 200 mls/hr IVPB Q8HR [facility] Lactated Ringer's (Lactated Ringer's) 1,000 mls @ 50 mls/hr IV .Q20H [facility] Miscellaneous Medication (Pharmacy To Dose) 1 each IVPB ONE PRN PRN Reason: Pharmacy to dose Stop: 10/16/18 18:14 Mometasone Furoate/Formoterol Fumar (Dulera 200 Mcg/5 Mcg Inhaler) 2 puff INH BID-RT [facility] Last Admin: 09/18/18 06:22 Dose: 2 puff Oxycodone HCl (Oxycodone Ir) 5 mg PO Q4H PRN PRN Reason: PAIN-6-10 Last Admin: 09/18/18 14:31 Dose: 5 mg Senna/Docusate Sodium (Senokot S) 2 tab PO BID PRN PRN Reason: Constipation Sodium Chloride (Flush - Normal Saline) 10 ml IVF Q12HR [facility] Last Admin: 09/18/18 09:15 Dose: 10 ml Sodium Chloride (Flush - Normal Saline) 10 ml IVF PRN PRN PRN Reason: Saline Flush
[2018-09-18] MEDS: MEROPENEM 1 GM/50 ML 1 GM in Premix Bag 1 BAG IVPB SCH ×2 (17:06→23:17)
--- NOTE | 2018-09-18 17:31 | CON ---
DATE OF CONSULTATION: 09/18/2018 HISTORY OF PRESENT ILLNESS: Mr. Marques Cowan is a 48-year-old male with a recent diagnosis of Lang erhans cell histiocytosis with multiple medical problems related to this including a rectal wound/abs cess as well as leukopenia and neutropenia. He was started on treatment with patrick-C 08/29/2018 and re ceived a 5-day cycle. He is due for cycle 2 on 09/26/2018. He presented to the emergency room with fever. He speaks [place] and the history was difficult, but per his daughter's report, he had fever up to 100. In the hospital here, his T-max has been 100-101.8. He feels much better since being in the hospital and on IV antibiotics. He is also receiving IV fluids. He continues to have perirectal pain. Wound care has addressed this wound and it is being monitored. It was biopsied and proved to be Langerhans cell histiocytosis. He denies any shortness of breath or cough. No difficulty urinat ing or abdominal pain. No constipation or diarrhea. PAST MEDICAL HISTORY: 1. Langerhans cell histiocytosis. 2. Diabetes. 3. History of pneumothorax. CURRENT MEDICATIONS: 1. Tylenol p.r.n. 2. Tylenol #3 p.r.n. 3. Dulcolax 10 mg p.o. daily p.r.n. 4. Cefepime 2 grams IV q.12 hours 5. Heparin 5000 units subcu t.i.d. 6. Lactated Ringer's. 7. Oxycodone 5 mg p.o. q.4 hours p.r.n. 8. Senokot 2 tabs p.o. b.i.d. p.r.n. 9. Vancomycin 1.25 grams IV q.12 hours ALLERGIES: No known drug allergies. SOCIAL HISTORY: He is here with his who appears quite supportive. He does drink alcohol. Justyn es significant tobacco use. FAMILY HISTORY: Noncontributory. REVIEW OF SYSTEMS: Somewhat unobtainable secondary to patient being [place] Islander speaking only. Please s ee the history of present illness. PHYSICAL EXAMINATION: VITAL SIGNS: T-max 101.8, T current 99.4, pulse 93, respirations 16, O2 sat 94% on room air, blood p ressure 114/66. GENERAL: He is quite pleasant, in no acute distress, although he does lie on his side because of rec kunal pain. HEENT: Extraocular muscles are intact. Pupils react to light. He has no oral cavity lesions. NECK: Supple without lymphadenopathy. CARDIOVASCULAR: Regular rhythm. LUNGS: Clear to auscultation bilaterally. ABDOMEN: Hypoactive bowel sounds. Soft, nontender and nondistended. EXTREMITIES: No edema. GENITOURINARY: Notably, his rectal wound was not examined as it has recently been looked at by Wound Care and the nurses. LABORATORY DATA: White blood cell count 4.2, hemoglobin 10.1, platelets 682, 8% neutrophils, 4% band s, 63% neutrophils, 8% reactive lymphs, 10% monocytes. Notably, his white blood cell count prior to starting treatment was 7.2 with 54% neutrophils. Sodium 138, potassium 3.3, chloride 108, CO2 22, BU N 7, creatinine 1.3, glucose 147 and calcium 8.3. Blood cultures on this hospitalization have no growth at 48 hours. In the past, he has grown Staph a ureus and Enterococcus out of the sacral wound. ASSESSMENT: Mr. Marques Cowan is a 48-year-old male with: 1. Neutropenic fever. 2. Langerhans cell histiocytosis, status post cycle #1 of patrick-C. 3. History of Staph aureus sacral wound infection. 4. Rectal pain secondary to the above. PLAN: 1. I discussed with he and his that if his fever resolved on IV antibiotics. Hopefully, we can transition him to oral antibiotics as his counts recover. 2. I expect that his counts will make a full recovery in the next few days. He is on appropriate IV antibiotic coverage and this will be continued. 3. I would recommend continued wound care. 4. We will follow with you. If he is afebrile for over 24 hours, I think he could be discharged [facility] on oral antibiotics if he can afford this. This will need to be discussed prior to discharge.
--- NOTE | 2018-09-18 20:38 | PRG ---
DATE OF SERVICE: 09/18/2018 SUBJECTIVE: Mr. Cowan is having pain in the left side of his jaw. He denies any respiratory symptoms, no abdominal pain. A little bit of tenderness in the left side of the mandible too in the inner aspect that is. No diarrhea, no genitourinary symptoms. PHYSICAL EXAMINATION: VITAL SIGNS: Temperature max 101.8 at 6:00 a.m. today, BP 105/57, pulse 95, respiration 16, O2 sat 94%. SKIN: Exam was not remarkable. A little bit of prominence in the left gum area and inner aspect of his malar region. Not much in terms of erythema. No exudate noted. There is tenderness on palpation of the left side of his mandible. EARS: External ear evaluation showed some cerumen, but the tympanic membrane appeared normal. NECK: Supple. LUNGS: Symmetric clear breath sounds. S1, S2, regular rate without murmurs. ABDOMEN: Soft, not distended. NEUROLOGIC: Nonfocal. LABORATORY DATA: White cell count 4.2, hemoglobin 10.1, platelets 682, total neutrophil count is almost 500 with 63% lymphocytes, creatinine is at 1.32 and GFR 58. Vancomycin level was 12.9. Microbiology with negative blood cultures from admission. ASSESSMENT AND DISCUSSION: 1. Langerhans cell histiocytosis of lung and bone and soft tissue involvement on ALISHA-C, Solu-Medrol and now fever with neutropenia. 2. Mandibular pain. DISCUSSION: At this point, we will switch him to meropenem to add better streptococcal and anaerobic coverage in view of the mandibular involvement. BENJAMIN
[2018-09-19] MEDS: Acetaminophen 325 MG TAB PO PRN ×2 (00:03→10:49)
[2018-09-19] MEDS: Vancomycin HCl 1.25 GM in Sodium Chloride 0.9% 250 ML 250 ML IVPB SCH ×2 (03:05→15:42)
[2018-09-19] MEDS: Lactated Ringer's 1,000 ML IV SCH ×2 (03:08→08:04)
[2018-09-19] MEDS: Mometasone/Formoterol 120 PUFF INHALER INH SCH ×2 (06:06→19:22)
[2018-09-19 06:19] LABS: Anion Gap 12 mmol/L (10-20); BUN (Urea Nitrogen) 9 mg/dL (8.9-20.6); Calc. Creatinine Clearance 103 mL/min (70-130); Calcium 8.5 mg/dL (7.8-10.44); Carbon Dioxide 22 mmol/L (22-29); Chloride 109 mmol/L (98-107); Estimated GFR-MDRD 58; Glucose 126 mg/dL (70-105); Sodium 140 mmol/L (136-145)
[2018-09-19 06:32] LABS: Hemoglobin 10.1 g/dL (14.0-18.0); Hypochromia SLIGHT = 6-15 cells (100X) (0-5/hpf); Lymphocytes 61 % (21-51); MDiff Complete? YES; Mean Corpuscular HGB CONC 31.6 g/dL (32.0-36.0); Mean Corpuscular Volume 82.2 fL (78.0-98.0); Mean Platelet Volume 5.7 fL (7.4-10.4); Monocytes 12 % (0-10); Neutrophil 27 % (42-75); PLT Morphology Comment Appears Increased; Platelet Count 627 thou/uL (130-400); RBC Distribution Width 13.1 % (11.5-14.5); Red Blood Cell (RBC) Count 3.88 mill/uL (4.70-6.10); White Blood Cell (WBC) Count 5.4 thou/uL (4.8-10.8)
[2018-09-19] MEDS ORDERED: Potassium Chloride 20 MEQ TAB PO SCH (07:30)
[2018-09-19] MEDS: MEROPENEM 1 GM/50 ML 1 GM in Premix Bag 1 BAG IVPB SCH ×3 (07:49→23:34)
[2018-09-19] MEDS: oxyCODONE 5 MG TAB PO PRN (07:52)
[2018-09-19] MEDS: Heparin 5,000 UNITS/ML VIAL SC SCH ×3 (07:53→20:36)
[2018-09-19 15:58] LABS: Vancomycin, Trough 21.9 ug/mL
--- NOTE | 2018-09-19 16:27 | PDOC.PN ---
- Subjective Encounter Start Date: 09/19/18 Encounter Start Time: 10:00 Subjective: pt up in bed no complains - Objective Resuscitation Status: Resuscitation Status FULL:Full Resuscitation Vital Signs & Weight: Vital Signs (12 hours) Temp Pulse Resp BP Pulse Ox 09/19/18 15:16 98.2 F 09/19/18 10:46 98.7 F 92 16 107/52 L 94 L 09/19/18 08:54 98.1 F 79 16 107/55 L 97 09/19/18 08:00 97 09/19/18 06:06 100 16 Weight Admit Weight 233 lb 9.6 oz Weight 233 lb 9.6 oz I&O: 09/18/18 09/19/18 09/20/18 06:59 06:59 06:59 Intake Total 5780 3410 Output Total 1000 3400 Balance 4780 10 Result Diagrams: 09/19/18 05:49 09/19/18 05:49 Phys Exam - Physical Examination Neck: no nodes, no JVD, supple, full ROM Respiratory: no wheezing, no rales, no rhonchi, wheezing present, clear to auscultation bilateral Cardiovascular: RRR, no significant murmur, no rub, gallop, irregular Gastrointestinal: soft, non-tender, no distention, positive bowel sounds Dx/Plan (1) Fever Code(s): R50.9 - FEVER, UNSPECIFIED Status: Acute (2) DM type 2 (diabetes mellitus, type 2) Status: Chronic 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 Diabetes mellitus complication status: with hyperglycemia Qualified Code(s): E11.65 - Type 2 diabetes mellitus with hyperglycemia Comment: diagnosed 03/2018 (3) Langerhans cell histiocytoses Code(s): C96.6 - UNIFOCAL LANGERHANS-CELL HISTIOCYTOSIS Status: Chronic (4) HTN (hypertension) Code(s): I10 - ESSENTIAL (PRIMARY) HYPERTENSION Status: Chronic Qualifiers: Hypertension type: essential hypertension Qualified Code(s): I10 - Essential (primary) hypertension - Plan pt feels much better today -: will continue meropenem/vanc -: will replace K -: continue to montior creatinine, continue iv fluids * . Review of Systems - Review of Systems Respiratory: negative: Cough, Dry, Shortness of Breath, Hemoptysis, SOB with Excertion, Pleuritic Pain, Sputum, Wheezing Cardiovascular: negative: chest pain, palpitations, orthopnea, paroxysmal nocturnal dyspnea, edema, light headedness, other Gastrointestinal: negative: Nausea, Vomiting, Abdominal Pain, Diarrhea, Constipation, Melena, Hematochezia, Other - Medications/Allergies Allergies/Adverse Reactions: Allergies Allergy/AdvReac Type Severity Reaction Status Date / Time No Known Allergies Allergy Verified 09/16/18 20:26 Medications: Current Medications Acetaminophen (Tylenol) 650 mg PO Q4H PRN PRN Reason: Headache/Fever/Mild Pain (1-3) Last Admin: 09/19/18 10:49 Dose: 650 mg Acetaminophen/Codeine Phosphate (Tylenol #3) 1 tab PO Q4HR PRN PRN Reason: Moderate Pain (4-6) Bisacodyl (Dulcolax) 10 mg PO DAILYPRN PRN PRN Reason: Constipation Last Admin: 09/18/18 22:48 Dose: 10 mg Heparin Sodium (Porcine) (Heparin) 5,000 units SC TID [facility] Last Admin: 09/19/18 15:43 Dose: 5,000 units Vancomycin HCl 1.25 gm/ Sodium (Chloride) 250 mls @ 166.667 mls/hr IVPB 0400, 1600 [facility] Last Admin: 09/19/18 15:42 Dose: 250 mls Meropenem 1 gm/ Device 50 mls @ 100 mls/hr IVPB 0800,1600,2359 [facility] Last Admin: 09/19/18 15:09 Dose: 50 mls Lactated Ringer's (Lactated Ringer's) 1,000 mls @ 50 mls/hr IV .Q20H [facility] Last Admin: 09/19/18 08:04 Dose: 1,000 mls Miscellaneous Medication (Pharmacy To Dose) 1 each IVPB ONE PRN PRN Reason: Pharmacy to dose Stop: 10/16/18 18:14 Mometasone Furoate/Formoterol Fumar (Dulera 200 Mcg/5 Mcg Inhaler) 2 puff INH BID-RT [facility] Last Admin: 09/19/18 06:06 Dose: 2 puff Oxycodone HCl (Oxycodone Ir) 5 mg PO Q4H PRN PRN Reason: PAIN-6-10 Last Admin: 09/19/18 07:52 Dose: 5 mg Senna/Docusate Sodium (Senokot S) 2 tab PO BID PRN PRN Reason: Constipation Sodium Chloride (Flush - Normal Saline) 10 ml IVF Q12HR [facility] Last Admin: 09/19/18 07:54 Dose: 10 ml Sodium Chloride (Flush - Normal Saline) 10 ml IVF PRN PRN PRN Reason: Saline Flush
--- NOTE | 2018-09-19 18:27 | PRG ---
DATE OF SERVICE: 09/19/2018 SUBJECTIVE: Feeling better today, no pain in the left jaw area as previously noted. No chest pain, no cough or sputum production. No abdominal pain or diarrhea. He has been afebrile since yesterday. OBJECTIVE: VITAL SIGNS: Other vital signs are normal. GENERAL: Awake, alert, oriented. No tenderness left jaw area. LUNGS: Clear. CARDIOVASCULAR: S1, S2, regular rate. ABDOMEN: Soft. LABORATORY DATA: White cell count 5.4, hemoglobin 10.1 and platelets 627. Total neutrophil count around 1500. ASSESSMENT AND DISCUSSION: Langerhans histiocytosis, on ALISHA-C + Solu-Medrol. Neutropenic fever. Patient is improving now. Continue meropenem and eventual discharge planning on Cipro and Augmentin for approximately one week. MTDD
[2018-09-19] MEDS: Vancomycin HCl 750 MG in Sodium Chloride 0.9% 250 ML 250 ML IVPB SCH (23:34)
[2018-09-20] MEDS: Acetaminophen 325 MG TAB PO PRN ×2 (00:24→13:00)
[2018-09-20] MEDS: Lactated Ringer's 1,000 ML IV SCH (05:14)
[2018-09-20] MEDS: Mometasone/Formoterol 120 PUFF INHALER INH SCH ×2 (06:09→18:09)
[2018-09-20] MEDS: Ferrous Gluconate 324 MG TAB PO SCH (07:38)
[2018-09-20] MEDS: glipiZIDE 5 MG TAB PO SCH ×2 (07:38→16:35)
[2018-09-20] MEDS: Folic Acid 1 MG TAB PO SCH (07:39)
[2018-09-20] MEDS: MEROPENEM 1 GM/50 ML 1 GM in Premix Bag 1 BAG IVPB SCH ×2 (07:39→16:11)
[2018-09-20] MEDS: Heparin 5,000 UNITS/ML VIAL SC SCH ×3 (07:48→21:05)
[2018-09-20] MEDS: Vancomycin HCl 750 MG in Sodium Chloride 0.9% 250 ML 250 ML IVPB SCH ×2 (08:15→16:39)
[2018-09-20 09:31] LABS: ALT (SGPT) 9 U/L (8-55); AST (SGOT) 10 U/L (5-34); Alkaline Phosphatase 60 U/L (40-150); Anion Gap 10 mmol/L (10-20); BUN (Urea Nitrogen) 6 mg/dL (8.9-20.6); Bilirubin, Total 0.2 mg/dL (0.2-1.2); Calc. Creatinine Clearance 146 mL/min (70-130); Calcium 8.4 mg/dL (7.8-10.44); Carbon Dioxide 26 mmol/L (22-29); Chloride 108 mmol/L (98-107); Estimated GFR-MDRD 86; Globulin 3.4 g/dL (2.4-3.5); Glucose 96 mg/dL (70-105); Magnesium 2.1 mg/dL (1.6-2.6); Potassium 3.2 mmol/L (3.5-5.1); Protein, Total 6.4 g/dL (6.0-8.3); Sodium 141 mmol/L (136-145)
[2018-09-20 10:13] LABS: Hemoglobin 9.9 g/dL (14.0-18.0); Mean Corpuscular HGB CONC 31.3 g/dL (32.0-36.0); Mean Corpuscular Hemoglobin 25.9 pg (27.0-31.0); Mean Corpuscular Volume 82.6 fL (78.0-98.0); Mean Platelet Volume 6.2 fL (7.4-10.4); Platelet Count 630 thou/uL (130-400); RBC Distribution Width 13.4 % (11.5-14.5); Red Blood Cell (RBC) Count 3.81 mill/uL (4.70-6.10); White Blood Cell (WBC) Count 5.7 thou/uL (4.8-10.8)
[2018-09-20 11:50] LABS: Band 8 % (5-11); Eosinophils 1 % (0-10); Lymphocytes 42 % (21-51); MDiff Complete? YES; Metamyelocyte 14 % (0-0); Monocytes 17 % (0-10); Myelocyte 7 % (0-0); Neutrophil 6 % (42-75); PLT Morphology Comment Appears Increased; Polychromasia SLIGHT = 2-3 cells (100X) (0-2/hpf); Reactive Lymphocytes 5 % (0-10); Vacuoles SLIGHT
[2018-09-20] MEDS: Potassium Chloride 20 MEQ TAB PO SCH ×2 (13:00→16:39)
--- NOTE | 2018-09-20 13:28 | PDOC.PN ---
- Subjective Encounter Start Date: 09/20/18 Encounter Start Time: 10:00 Patient seen and examined for Sepsis. Feeling better. Febrile last night. No new complaints. - Objective Resuscitation Status: Resuscitation Status FULL:Full Resuscitation MAR Reviewed: Yes Vital Signs & Weight: Vital Signs (12 hours) Temp Pulse Resp BP BP Pulse Ox 09/20/18 13:15 101.5 F H 84 18 119/56 L 98 09/20/18 08:06 98.1 F 78 16 122/66 94 L 09/20/18 08:00 94 L 09/20/18 06:09 91 16 09/20/18 03:00 97.8 F Weight Admit Weight 233 lb 9.6 oz Weight 233 lb 9.6 oz I&O: 09/19/18 09/20/18 09/21/18 06:59 06:59 06:59 Intake Total 3410 4125 Output Total 3400 1999 Balance 10 2124 Result Diagrams: 09/20/18 08:56 09/20/18 08:56 Phys Exam - Physical Examination Constitutional: NAD Respiratory: no wheezing, no rhonchi Cardiovascular: RRR, no rub Gastrointestinal: soft, non-tender, positive bowel sounds Musculoskeletal: no edema Neurological: moves all 4 limbs Dx/Plan - Plan DVT proph w/SCDs 1. Neutropenic fever/ Sepsis 2. SYLVAIN on CKD 2 / Hypokalemia 3. DM2 4. Morbid Obesity BMI 41 5. h/o Langerhans cell histiocytosis PLAN: Cont Vanc with Meropenem Cont other meds as below Heparin SQ for DVT prop Replace Potassium Review of Systems - Review of Systems Respiratory: negative: Cough, Dry, Shortness of Breath, Hemoptysis, SOB with Excertion, Pleuritic Pain, Sputum, Wheezing Cardiovascular: negative: chest pain, palpitations, orthopnea, paroxysmal nocturnal dyspnea, edema, light headedness, other Gastrointestinal: negative: Nausea, Vomiting, Abdominal Pain, Diarrhea, Constipation, Melena, Hematochezia, Other - Medications/Allergies Allergies/Adverse Reactions: Allergies Allergy/AdvReac Type Severity Reaction Status Date / Time No Known Allergies Allergy Verified 09/16/18 20:26 Medications: Current Medications Acetaminophen (Tylenol) 650 mg PO Q4H PRN PRN Reason: Headache/Fever/Mild Pain (1-3) Last Admin: 09/20/18 13:00 Dose: 650 mg Acetaminophen/Codeine Phosphate (Tylenol #3) 1 tab PO Q4HR PRN PRN Reason: Moderate Pain (4-6) Bisacodyl (Dulcolax) 10 mg PO DAILYPRN PRN PRN Reason: Constipation Last Admin: 09/18/18 22:48 Dose: 10 mg Ferrous Gluconate (Fergon) 324 mg PO QAM-[facility] Last Admin: 09/20/18 07:38 Dose: 324 mg Folic Acid (Folvite) 1 mg PO DAILY [facility] Last Admin: 09/20/18 07:39 Dose: 1 mg Glipizide (Glucotrol) 5 mg PO BID-AC [facility] Last Admin: 09/20/18 07:38 Dose: 5 mg Heparin Sodium (Porcine) (Heparin) 5,000 units SC TID [facility] Last Admin: 09/20/18 07:48 Dose: 5,000 units Meropenem 1 gm/ Device 50 mls @ 100 mls/hr IVPB 0800,1600,2359 [facility] Last Admin: 09/20/18 07:39 Dose: 50 mls Lactated Ringer's (Lactated Ringer's) 1,000 mls @ 50 mls/hr IV .Q20H [facility] Last Admin: 09/20/18 05:14 Dose: 1,000 mls Vancomycin HCl 750 mg/ Sodium (Chloride) 250 mls @ 250 mls/hr IVPB 0800,1600, 2359 [facility] Last Admin: 09/20/18 08:15 Dose: 250 mls Miscellaneous Medication (Pharmacy To Dose) 1 each IVPB ONE PRN PRN Reason: Pharmacy to dose Stop: 10/16/18 18:14 Mometasone Furoate/Formoterol Fumar (Dulera 200 Mcg/5 Mcg Inhaler) 2 puff INH BID-RT [facility] Last Admin: 09/20/18 06:09 Dose: 2 puff Oxycodone HCl (Oxycodone Ir) 5 mg PO Q4H PRN PRN Reason: PAIN-6-10 Last Admin: 09/19/18 07:52 Dose: 5 mg Potassium Chloride (K-Dur) 20 meq PO TID-[facility] Stop: 09/21/18 08:01 Last Admin: 09/20/18 13:00 Dose: 20 meq Senna/Docusate Sodium (Senokot S) 2 tab PO BID PRN PRN Reason: Constipation Sodium Chloride (Flush - Normal Saline) 10 ml IVF Q12HR [facility] Last Admin: 09/20/18 12:59 Dose: Not Given Sodium Chloride (Flush - Normal Saline) 10 ml IVF PRN PRN PRN Reason: Saline Flush
[2018-09-20] MEDS: oxyCODONE 5 MG TAB PO PRN (16:11)
[2018-09-20] MEDS: Micafungin 100 MG in Sodium Chloride 0.9% 100 ML IVPB SCH ×2 (19:12)
[2018-09-20 23:48] LABS: Vancomycin, Trough 21.6 ug/mL
[2018-09-21] MEDS: Vancomycin HCl 750 MG in Sodium Chloride 0.9% 250 ML 250 ML IVPB SCH (00:01)
[2018-09-21] MEDS: Lactated Ringer's 1,000 ML IV SCH (03:00)
[2018-09-21] MEDS: Acetaminophen 325 MG TAB PO PRN (05:18)
[2018-09-21 05:36] LABS: Band 4 % (5-11); Hemoglobin 9.6 g/dL (14.0-18.0); Hypochromia SLIGHT = 6-15 cells (100X) (0-5/hpf); Lymphocytes 58 % (21-51); MDiff Complete? YES; Mean Corpuscular HGB CONC 31.4 g/dL (32.0-36.0); Mean Corpuscular Hemoglobin 26.2 pg (27.0-31.0); Mean Corpuscular Volume 83.5 fL (78.0-98.0); Mean Platelet Volume 6.6 fL (7.4-10.4); Metamyelocyte 3 % (0-0); Monocytes 8 % (0-10); Myelocyte 2 % (0-0); Neutrophil 22 % (42-75); Nucleated RBC 1 % (0); PLT Morphology Comment Appears Increased; Platelet Count 504 thou/uL (130-400); Polychromasia SLIGHT = 2-3 cells (100X) (0-2/hpf); RBC Distribution Width 13.7 % (11.5-14.5); Reactive Lymphocytes 3 % (0-10); Red Blood Cell (RBC) Count 3.65 mill/uL (4.70-6.10); White Blood Cell (WBC) Count 7.7 thou/uL (4.8-10.8)
[2018-09-21 05:48] LABS: Anion Gap 13 mmol/L (10-20); BUN (Urea Nitrogen) 8 mg/dL (8.9-20.6); Calc. Creatinine Clearance 147 mL/min (70-130); Calcium 8.5 mg/dL (7.8-10.44); Carbon Dioxide 23 mmol/L (22-29); Chloride 113 mmol/L (98-107); Estimated GFR-MDRD 87; Glucose 81 mg/dL (70-105); Potassium 3.7 mmol/L (3.5-5.1); Sodium 145 mmol/L (136-145)
[2018-09-21] MEDS: Mometasone/Formoterol 120 PUFF INHALER INH SCH (07:56)
[2018-09-21] MEDS: MEROPENEM 1 GM/50 ML 1 GM in Premix Bag 1 BAG IVPB SCH ×2 (08:04)
[2018-09-21] MEDS: Heparin 5,000 UNITS/ML VIAL SC SCH (08:05)
[2018-09-21] MEDS: Folic Acid 1 MG TAB PO SCH (08:05)
[2018-09-21] MEDS: Ferrous Gluconate 324 MG TAB PO SCH (08:05)
[2018-09-21] MEDS: glipiZIDE 5 MG TAB PO SCH (08:05)
[2018-09-21] MEDS: Potassium Chloride 20 MEQ TAB PO SCH (08:05)
[2018-09-21 11:33] VITALS: BP 114/56; TEMP 98.7
[2018-09-21] MEDS ORDERED: Vancomycin HCl 1 GM in Premix Bag 1 BAG IVPB SCH (12:00)
--- NOTE | 2018-09-21 18:19 | DIS ---
DATE OF DISCHARGE: 09/21/2018 DISCHARGE DISPOSITION: Home. FOLLOWUP: Follow up with primary care physician at [facility] in 1 week. Follow up in [facility] next week. ALLERGIES: No known drug allergies. DISCHARGE MEDICATIONS: Augmentin 875 mg twice a day for the next 14 days. All other home medication s were left unchanged. DIAGNOSTIC TESTS: 1. WBC on the day of discharge is 7.7 with 22% neutrophils and 4% bandemia. 2. Potassium on the day of discharge is 3.7, BUN 8, creatinine 0.93. Maximum creatinine was 1.43. Urinalysis was negative. 3. Blood cultures negative. Influenza screen negative. 4. Chest x-ray showed chronic changes. 5. CT scan of the abdomen and pelvis with contrast showed fatty liver with prominent lymph nodes in the gastrohepatic ligament. There was also abrupt change in the caliber in the sigmoid colon. Colon oscopy would be helpful per Radiology. INPATIENT CONSULTANTS: 1. Infectious Disease, Dr. Dillard. 2. Oncology Service, Dr. Morris. BRIEF HOSPITAL COURSE: Patient is a 48-year-old male with Langerhans cell histiocytosis presented to the hospital with fever. Please refer to the history and physical dated 09/16/[address] Carlo floyd r further details. The patient was admitted to the hospital with a diagnosis of sepsis with neutropenic fever of unclear etiology. He was placed on broad-spectrum antibiotics. He was seen by Infectious Disease, Dr. Pinky santana as well as Oncology Service. Initially, he was placed on vancomycin and meropenem. However, yeste rday due to persistent fever, micafungin was added. The patient has been afebrile for the last 24 ho urs. His ANC counts have improved. He has been cleared by consultants for discharge. FINAL DIAGNOSES: 1. Sepsis with neutropenic fever. 2. Acute kidney injury on chronic kidney disease stage 2, resolved. 3. Hypokalemia, corrected. 4. Diabetes mellitus type 2. 5. Morbid obesity with a BMI of 41. 6. History of Langerhans cell histiocytosis. 7. Mild persistent asthma. 8. Chronic normochromic normocytic anemia. 9. Thrombocytosis. Plan of care was discussed with the patient in detail. He stated understanding.
== END 2018-09-21 14:22 | disposition home or self-care (01) | DRG 872 ==
LOC: ERS 15:33 → ONC 18:23
PROVIDERS: ADMIT Internal Medicine; ATTEND Internal Medicine
DX: A41.9 Sepsis, unspecified organism (principal); C96.6 Unifocal Langerhans-cell histiocytosis; N17.9 Acute kidney failure, unspecified; Z68.41 Body mass index [BMI] 40.0-44.9, adult; E11.65 Type 2 diabetes mellitus with hyperglycemia; D70.9 Neutropenia, unspecified; R50.81 Fever presenting with conditions classified elsewhere; E11.22 Type 2 diabetes mellitus with diabetic chronic kidney disease; N18.2 Chronic kidney disease, stage 2 (mild); E87.6 Hypokalemia; E66.01 Morbid (severe) obesity due to excess calories; E11.622 Type 2 diabetes mellitus with other skin ulcer; L98.499 Non-pressure chronic ulcer of skin of other sites with unspecified severity; D64.9 Anemia, unspecified; J45.30 Mild persistent asthma, uncomplicated; D47.3 Essential (hemorrhagic) thrombocythemia; Z87.891 Personal history of nicotine dependence
CPT/HCPCS: 36415; 36416; 71045; 74177; 80048; 80053; 80202; 81003; 83605; 83735; 85007; 85025; 85027; 87040; 87804; 93005; 94664; 96365; 96367; J0692; J1644; J2185; J2248; J2543; J3370; J7050

== ENCOUNTER 2018-09-26 10:14 | Day surgery (SDC) | payer OTHER, SELFPAY ==
[2018-09-26] MEDS ORDERED: Sodium Chloride 0.9% 20 ML ONE (10:22)
[2018-09-26 10:32] VITALS: BP 120/73; TEMP 98.3
[2018-09-26] MEDS ORDERED: METHYLPREDNISOLONE SOD SUCC IVP SCH (11:00)
[2018-09-26] MEDS ORDERED: SODIUM CHLORIDE 0.9% IVP SCH (11:00)
[2018-09-26] MEDS ORDERED: Ondansetron 2MG/ML MDV 10 MG in Sodium Chloride 0.9% 50 ML IVP SCH (11:00)
[2018-09-26] MEDS ORDERED: CYTARABINE IVPB SCH (11:30)
[2018-09-26] MEDS ORDERED: SODIUM CHLORIDE 0.9% IVPB SCH (11:30)
== END 2018-09-26 14:08 | disposition home or self-care (01) ==
LOC: ONC/OP 10:14
PROVIDERS: ATTEND Internal Medicine Hematology & Oncology
DX: Z51.11 Encounter for antineoplastic chemotherapy (principal); C96.0 Multifocal and multisystemic (disseminated) Langerhans-cell histiocytosis
CPT/HCPCS: 36415; 80053; 82248; 83615; 84100; 84550; 96367; 96375; 96413; 96415; J1642; J2405; J2920; J7050; J9100

== ENCOUNTER 2018-09-27 12:46 | Day surgery (SDC) | payer OTHER, SELFPAY ==
[2018-09-27] MEDS ORDERED: SODIUM CHLORIDE 0.9% IVPB SCH ×2 (13:00)
[2018-09-27] MEDS ORDERED: Ondansetron HCl/PF 10 MG in Sodium Chloride 0.9% 50 ML IVPB SCH (13:00)
[2018-09-27] MEDS ORDERED: CYTARABINE IVPB SCH (13:00)
[2018-09-27] MEDS ORDERED: METHYLPREDNISOLONE SOD SUCC IVPB SCH (13:00)
[2018-09-27] MEDS ORDERED: Sodium Chloride 0.9% 30 ML ONE (13:04)
[2018-09-27 13:33] VITALS: BP 108/65; TEMP 98.4
== END 2018-09-27 16:39 | disposition home or self-care (01) ==
LOC: ONC/OP 12:46
PROVIDERS: ATTEND Internal Medicine Hematology & Oncology
DX: Z51.11 Encounter for antineoplastic chemotherapy (principal); C96.0 Multifocal and multisystemic (disseminated) Langerhans-cell histiocytosis
CPT/HCPCS: 96367; 96375; 96413; 96415; J1642; J2405; J2920; J7050; J9100

== ENCOUNTER 2018-09-28 13:00 | Day surgery (SDC) | payer OTHER, SELFPAY ==
[2018-09-28] MEDS ORDERED: SODIUM CHLORIDE 0.9% IVP SCH (13:30)
[2018-09-28] MEDS ORDERED: SODIUM CHLORIDE 0.9% IVPB SCH ×2 (13:30)
[2018-09-28] MEDS ORDERED: Ondansetron 2MG/ML MDV 10 MG in Sodium Chloride 0.9% 50 ML IVP SCH (13:30)
[2018-09-28] MEDS ORDERED: CYTARABINE IVPB SCH ×2 (13:30)
[2018-09-28] MEDS ORDERED: METHYLPREDNISOLONE SOD SUCC IVP SCH (13:30)
[2018-09-28] MEDS ORDERED: Sodium Chloride 0.9% 20 ML ONE (13:51)
== END 2018-09-28 17:04 | disposition home or self-care (01) ==
LOC: ONC/OP 13:00
PROVIDERS: ATTEND Internal Medicine Hematology & Oncology
DX: Z51.11 Encounter for antineoplastic chemotherapy (principal); C96.0 Multifocal and multisystemic (disseminated) Langerhans-cell histiocytosis
CPT/HCPCS: 96367; 96375; 96413; 96415; J1642; J2405; J2920; J7050; J9100

== ENCOUNTER 2018-09-29 12:54 | Day surgery (SDC) | payer OTHER, SELFPAY ==
[2018-09-29] MEDS ORDERED: Sodium Chloride 0.9% 40 ML ONE (13:02)
[2018-09-29] MEDS ORDERED: SODIUM CHLORIDE 0.9% IVP SCH (13:15)
[2018-09-29] MEDS ORDERED: SODIUM CHLORIDE 0.9% IVPB SCH ×4 (13:15→13:45)
[2018-09-29] MEDS ORDERED: CYTARABINE IVPB SCH ×3 (13:15→13:45)
[2018-09-29] MEDS ORDERED: METHYLPREDNISOLONE SOD SUCC IVP SCH (13:15)
[2018-09-29] MEDS ORDERED: Ondansetron PF 4 MG/2 ML Vial SLOW IVP SCH (13:15)
[2018-09-29] MEDS ORDERED: Ondansetron HCl/PF 10 MG in Sodium Chloride 0.9% 50 ML IVPB SCH (13:45)
[2018-09-29] MEDS ORDERED: METHYLPREDNISOLONE SOD SUCC IVPB SCH (13:45)
[2018-09-29 14:57] VITALS: BP 126/67; TEMP 98.4
== END 2018-09-29 19:24 | disposition home or self-care (01) ==
LOC: ONC/OP 12:54
PROVIDERS: ATTEND Internal Medicine Hematology & Oncology
DX: Z51.11 Encounter for antineoplastic chemotherapy (principal); C96.0 Multifocal and multisystemic (disseminated) Langerhans-cell histiocytosis
CPT/HCPCS: 96367; 96375; 96413; 96415; J1642; J2405; J2920; J7050; J9100

== ENCOUNTER 2018-09-30 12:53 | Day surgery (SDC) | payer SELFPAY ==
[2018-09-30] MEDS ORDERED: Ondansetron 2MG/ML MDV 10 MG in Sodium Chloride 0.9% 50 ML IVP SCH (13:15)
[2018-09-30] MEDS ORDERED: SODIUM CHLORIDE 0.9% IVPB SCH ×3 (13:15→13:30)
[2018-09-30] MEDS ORDERED: SODIUM CHLORIDE 0.9% IVP SCH (13:15)
[2018-09-30] MEDS ORDERED: CYTARABINE IVPB SCH ×2 (13:15)
[2018-09-30] MEDS ORDERED: METHYLPREDNISOLONE SOD SUCC IVP SCH (13:15)
[2018-09-30 13:24] VITALS: BP 125/70; TEMP 98.6
[2018-09-30] MEDS ORDERED: METHYLPREDNISOLONE SOD SUCC IVPB SCH (13:30)
== END 2018-09-30 16:56 | disposition home or self-care (01) ==
LOC: ONC/OP 12:53
PROVIDERS: ATTEND Internal Medicine Hematology & Oncology
DX: Z51.11 Encounter for antineoplastic chemotherapy (principal); C96.0 Multifocal and multisystemic (disseminated) Langerhans-cell histiocytosis
CPT/HCPCS: 96375; 96413; 96415; J2405; J2920; J7050; J9100

== ENCOUNTER 2018-10-16 01:15 | Inpatient (IN) | payer MEDICAID, SELFPAY ==
[2018-10-16 02:05] LABS: Band 1 % (5-11); Eosinophils 12 % (0-10); Hemoglobin 10.7 g/dL (14.0-18.0); Lymphocytes 71 % (21-51); MDiff Complete? YES; Mean Corpuscular HGB CONC 33.4 g/dL (32.0-36.0); Mean Corpuscular Hemoglobin 27.2 pg (27.0-31.0); Mean Corpuscular Volume 81.5 fL (78.0-98.0); Mean Platelet Volume 6.1 fL (7.4-10.4); Metamyelocyte 1 % (0-0); Monocytes 11 % (0-10); Neutrophil 4 % (42-75); PLT Morphology Comment Appears Increased; Platelet Count 689 thou/uL (130-400); RBC Distribution Width 15.5 % (11.5-14.5); Red Blood Cell (RBC) Count 3.92 mill/uL (4.70-6.10); White Blood Cell (WBC) Count 2.6 thou/uL (4.8-10.8)
[2018-10-16 02:07] LABS: ALT (SGPT) 39 U/L (8-55); AST (SGOT) 34 U/L (5-34); Albumin 3.6 g/dL (3.5-5.0); Alkaline Phosphatase 103 U/L (40-150); Anion Gap 12 mmol/L (10-20); BUN (Urea Nitrogen) 7 mg/dL (8.9-20.6); Bilirubin, Total 0.3 mg/dL (0.2-1.2); Calc. Creatinine Clearance 0 mL/min (70-130); Calcium 9.3 mg/dL (7.8-10.44); Carbon Dioxide 24 mmol/L (22-29); Chloride 111 mmol/L (98-107); Estimated GFR-MDRD 77; Globulin 3.6 g/dL (2.4-3.5); Glucose 169 mg/dL (70-105); Potassium 3.5 mmol/L (3.5-5.1); Protein, Total 7.2 g/dL (6.0-8.3); Sodium 143 mmol/L (136-145)
[2018-10-16] MEDS ORDERED: Morphine 4 MG/ML VIAL ONE (03:06)
[2018-10-16] MEDS ORDERED: Ketorolac Tromethamine 30 MG/ML VIAL ONE (03:07)
[2018-10-16] MEDS ORDERED: Ondansetron PF 4 MG/2 ML Vial ONE (03:07)
[2018-10-16 03:12] LABS: Bilirubin Negative (Negative); Blood, Urine Negative (Negative); Clarity CLEAR (Clear); Glucose, Urine (Dipstick) Negative (Negative); Leukocyte Negative (Negative); Nitrite Negative (Negative); Protein, Urine (Dipstick) Negative (Neg-Trace); Specific Gravity, Urine 1.006 (1.002-1.036); Urobilinogen 0.2 mg/dL (0.2-1.0)
[2018-10-16] MEDS ORDERED: Clindamycin/D5W 900 mg/50 ml Premix Bag ONE (03:20)
[2018-10-16] MEDS ORDERED: Piperacillin/Tazobactam 4.5 GM VIAL ONE (04:58)
[2018-10-16 05:42] LABS: Lactic Acid 1.9 mmol/L (0.5-2.2)
[2018-10-16] MEDS ORDERED: Acetaminophen 325 MG TAB PO PRN ×2 (06:38→09:54)
[2018-10-16] MEDS ORDERED: Lactated Ringer's 1,000 ML IV SCH ×2 (06:38→10:00)
[2018-10-16] MEDS ORDERED: Ondansetron ODT 4 MG TAB SL PRN (06:38)
[2018-10-16] MEDS ORDERED: Ondansetron PF 4 MG/2 ML Vial IVP PRN ×2 (06:38→09:54)
[2018-10-16 06:59] VITALS: BMI 42.5
[2018-10-16] MEDS ORDERED: Prevnar 13-Val Conj/PF 0.5 ML SYRINGE IM ONE (07:45)
[2018-10-16] MEDS ORDERED: Iopamidol-370 76% 500 ML 1 ML ONE (09:00)
--- NOTE | 2018-10-16 09:48 | CT ---
PRELIMINARY REPORT/[facility]/EMERGENCY AFTER HOURS PROCEDURE: EXAM: CT Abdomen and Pelvis With Contrast EXAM DATE/TIME: 10/16/2018 2:58 AM CLINICAL HISTORY: 48 years old, male; Pain and signs and symptoms; Fever; Abdominal pain; Generalized; Prior surgery; P atient HX: Er 8; Sepsis activation; Fever and body aches that started this afternoon. Generalized abd ominal pain; Weakness, fever. Surgical history of appendectomy. Surgery for wound to sacrum 07/08/2018 TECHNIQUE: Axial computed tomography images of the abdomen and pelvis with intravenous contrast. Coronal reforma tted images were created and reviewed. COMPARISON: No relevant prior studies available. FINDINGS: Lower thorax: Spleen bullous emphysema and cystic parenchymal change of the lung bases with multifoca l scarring. ABDOMEN: Liver: Hepatomegaly and hepatic steatosis. Gallbladder and bile ducts: Normal. No calcified stones. No ductal dilation. Pancreas: Normal. No ductal dilation. Spleen: Splenomegaly. Adrenals: Normal. No mass. Kidneys and ureters: Normal. No hydronephrosis. Stomach and bowel: No bowel wall thickening or intestinal obstruction. Appendix: Appendix not visualized. No evidence of appendicitis. PELVIS: Bladder: Unremarkable as visualized. Reproductive: Unremarkable as visualized. ABDOMEN and PELVIS: Intraperitoneal space: Normal. No free air. No significant fluid collection. Bones/joints: No acute fracture. No dislocation. Soft tissues: Unremarkable. Vasculature: Normal. No abdominal aortic aneurysm. Lymph nodes: Normal. No enlarged lymph nodes. IMPRESSION: 1. Splenomegaly. 2. Hepatomegaly and hepatic steatosis. Thank you for allowing us to participate in the care of your patient. Dictated and Authenticated by: Norbert Chappell MD 10/16/2018 4:05 AM Central Time ([place] & [place]) FINAL REPORT BY DR. WEATHERS EMERGENCY AFTER HOURS STUDY CT ABDOMEN WITH CONTRAST CT PELVIS WITH CONTRAST: DATE: 10/16/2018. TIME: 3:00 a.m. HISTORY: A 48-year-old male with generalized abdominal pain, fever, and body aches. COMPARISON: 09/16/2018. TECHNIQUE: IV injection of iodinated contrast media: Isovue. Oral contrast media: Not administered. FINDINGS: Multiple pulmonary air cysts at the bilateral lower lobes. The largest one is approximately 1.5 x 8. 5 x 4.5 cm, broadly abutting the right hemidiaphragm. These air cysts are smaller and less numerous than on CT angiogram of the chest of 06/21/2016. Diffuse interstitial changes in the lungs. There ar e spiculated, mass-like, very irregularly shaped, noncalcified, elongated pulmonary masses in the sienna ateral lower lobes which are difficult to measure because of their very irregular shapes. These mass es are new since 06/21/2016, and unchanged compared to 09/16/2018. These were not FDG-avid on the PET CT of 08/04/2018, and are therefore not consistent with malignant neoplasms. In fact, the mass on the left has become thinner since 08/04/2018. Liver has diffusely low attenuation representing fatty liver. The liver is enlarged. There is mild splenomegaly. Bilateral kidneys, abdominal aorta, adrenals, and pancreas, are essentially normal. N o signs of colonic diverticulitis. No small bowel dilation, ascites, or pneumoperitoneum. Appendix not identified with certainty. Urinary bladder is less full on the current study compared to the pre vious. No other interval change since 09/16/2018. No major disagreement with the preliminary report by [facility]. IMPRESSION: 1. Hepatomegaly and hepatic steatosis. 2. Mild splenomegaly. 3. Otherwise, no acute findings within the abdominal cavity and pelvic cavity. 4. Air cysts and interstitial densities at the bases of the bilateral pulmonary lower lobes: evidenc e for Langerhans cell histiocytosis. 5. Elongated, large spiculated soft tissue pulmonary masses at the bilateral lower lobes. Exact shiva ology uncertain, but are not malignant neoplasms. MICHELLE Bañuelos POS: ALEENA
[2018-10-16] MEDS ORDERED: Dextrose 50% Abboject 50 ML SYRINGE SLOW IVP PRN (09:53)
[2018-10-16] MEDS ORDERED: Insulin Regular 300 UNITS/3 ML VIAL SC PRN ×2 (09:53→09:54)
[2018-10-16] MEDS ORDERED: Dextrose 5% in Water 1,000 ML IV PRN (09:53)
[2018-10-16] MEDS ORDERED: Bisacodyl 10 MG SUPP PR PRN (09:54)
[2018-10-16] MEDS ORDERED: Calcium Carbonate 500 MG ChewTAB PO PRN (09:54)
[2018-10-16] MEDS ORDERED: Ondansetron ODT 4 MG TAB PO PRN (09:54)
[2018-10-16] MEDS ORDERED: Bisacodyl 5 MG TAB PO PRN (09:54)
--- NOTE | 2018-10-16 09:54 | RAD ---
SINGLE VIEW OF THE CHEST: COMPARISON: 09/16/2018. HISTORY: Fever and body aches. FINDINGS: A single view of the chest shows a normal-size cardiomediastinal silhouette. The MediPort is unchang ed in position. Increased interstitial lung markings are present. There is no evidence of consolida tion, mass, or pleural effusion. IMPRESSION: Chronic interstitial lung disease without acute cardiopulmonary process. POS: BARRYH
[2018-10-16] MEDS ORDERED: Vancomycin HCl 1 GM in Premix Bag 1 BAG IVPB SCH (10:00)
[2018-10-16] MEDS: Lactated Ringer's 1,000 ML IV SCH ×2 (10:09→21:28)
--- NOTE | 2018-10-16 10:31 | HP ---
PRIMARY CARE PHYSICIAN: [facility]. CHIEF COMPLAINT: Fever. HISTORY OF PRESENT ILLNESS: The patient is a 48-year-old male, Venezuelan-speaking only, with Langerhans histiocytosis, on chemotherapy presented to the emergency room with fever. He was discharged from this facility approximately 3 weeks ago with a diagnosis of neutropenic fever. Since yesterday around 8:00 p.m., he started feeling generally weak along with fever. He also had some intermittent chills. He felt generally weak and fatigued with some discomfort over the wounds in the perineal region. He also noticed increasing drainage from the wounds. He felt nauseous, however denies any vomiting. He had mild chest congestion. No diarrhea, abdominal discomfort, altered mentation reported. He denies recent immobilization or travel. In the emergency room, his initial vital signs showed temperature 103.1, respirations 20, pulse rate of 135 with a blood pressure of 115/71, O2 saturation 94% on room air. Chest x-ray was negative for infiltrate. CT scan of the abdomen showed hepatosplenomegaly with hepatic steatosis. He received vancomycin, Zosyn, morphine, gentamicin in the emergency room with IV fluids. Influenza testing was negative. PAST MEDICAL HISTORY: 1. Diabetes mellitus type 2. 2. Langerhans histiocytosis. 3. History of pneumothorax. 4. Morbid obesity with a BMI of 42. 5. Mild persistent asthma. 6. Chronic anemia. PAST SURGICAL HISTORY: 1. Right foot surgery. 2. Appendectomy. 3. Chest tube placement. 4. Sacral wound debridement. ALLERGIES: THE PATIENT DENIES ANY DRUG ALLERGIES. CURRENT HOME MEDICATIONS: Family to bring the accurate list of medications. He does not remember any of his home medications. SOCIAL HISTORY: The patient currently lives at home. He is a former smoker, quit in 2016. Drinks alcohol socially. He is Venezuelan-speaking only. He denies any drug use. FAMILY HISTORY: Negative for premature coronary artery disease. REVIEW OF SYSTEMS: All other review of systems was reviewed and was found negative. Please note that history was obtained with the help of a education reviewer. PHYSICAL EXAMINATION: VITAL SIGNS: As discussed above. GENERAL: A 48-year-old male, ill-appearing, in no apparent distress. HEENT: Head; atraumatic and normocephalic. Sclerae anicteric. Moist mucous membranes. No oral lesion. NECK: Supple. No JVD. No carotid bruit. LUNGS: Showed diminished air entry at bases. No significant rales, rhonchi, or wheezing noted. HEART: S1 and S2 present. Tachycardic. No heaves, pulsation, or significant murmurs. ABDOMEN: Soft, obese. Bowel sounds present. EXTREMITIES: No edema or calf tenderness. NEUROLOGIC: Grossly nonfocal. Moves all 4 extremities. PSYCHIATRY: Alert, awake, and oriented x3. SKIN: Warm and dry. LYMPH NODES: No palpable lymph nodes in the neck. Peripheral, vascular, radial pulses palpable bilaterally. MUSCULOSKELETAL: No joint swelling or tenderness. LABORATORY FINDINGS: WBC 2.6 with neutrophils of 4% and 1% bandemia. Chemistry showed sodium 143, potassium 3.5, chloride 111, bicarb 24, BUN 7, creatinine 1.04, glucose of 169. LFTs in normal range. Urinalysis was negative. Influenza testing was negative. DIAGNOSTIC DATA: Chest x-ray by my review was negative for infiltrate or edema. Telemetry monitoring by my review showed sinus tachycardia. IMPRESSION: 1. Sepsis with acute organ dysfunction/neutropenic fever probably secondary to wound infection. 2. Diabetes mellitus type 2. His A1c earlier this year was 10.4. 3. Morbid obesity with a BMI of 42.5. 4. Chronic kidney disease, stage 2. 5. Langerhans cell histiocytosis, followed by Oncology. 6. Mild persistent asthma. 7. Reactive thrombocytosis. PLAN: The patient will be monitored as inpatient. We will continue vancomycin, Zosyn. Wound Care will be consulted. We will continue IV fluids. Insulin sliding scale. We will consult Infectious Disease. Vital signs q.4 hourly. Blood cultures and urine cultures have been sent. Plan of care was discussed with the patient in detail. He stated understanding. Job ID: [id number]
[2018-10-16] MEDS: Piperacillin/Tazobactam 3.375 GM in Sodium Chloride 0.9% 100 ML IVPB SCH ×3 (11:15→21:20)
[2018-10-16] MEDS ORDERED: Morphine 2 MG/ML SYRINGE SLOW IVP SCH (14:00)
[2018-10-16] MEDS: traMADol HCl 50 MG TAB PO PRN (15:24)
[2018-10-16] MEDS: Vancomycin HCl 1.75 GM in Sodium Chloride 0.9% 500 ML IVPB SCH (15:25)
[2018-10-16] MEDS: glipiZIDE 5 MG TAB PO SCH (16:46)
--- NOTE | 2018-10-16 18:16 | CON ---
DATE OF CONSULTATION: 10/16/2018 REASON FOR CONSULTATION: Fever. HISTORY OF PRESENT ILLNESS: A 48-year-old known to us from prior visits with a history of Langerhans cell histiocytosis with involvement of soft tissue and bone and lungs, currently on chemotherapy. Last treatment was about two weeks ago. The patient had been admitted with neutropenic fever in September and was treated with broad-spectrum coverage and was discharged on ciprofloxacin p.o. The patient developed worsening pain in the midline perineal ulcerated areas and fever, weakness, and chills. There was increased drainage from wounds. No headaches, visual symptoms, sore throat, odynophagia, or dysphagia. No cough or sputum production. Some congestion of the chest. No abdominal pain or diarrhea. No dysuria or hematuria. PAST MEDICAL HISTORY: Type 2 diabetes; Langerhans cell histiocytosis with lung, bone, and soft tissue involvement, perineal area; history of pneumothorax; obesity; asthma. PAST SURGICAL HISTORY: Foot surgery, appendectomy, chest tube placement, and sacral wound debridement. ALLERGIES: NONE. CURRENT MEDICATIONS: 1. DuoNeb. 2. Dulcolax. 3. Tums. 4. Lovenox. 5. Glucotrol. 6. Insulin. 7. Morphine. 8. Zosyn. 9. Vancomycin. ALLERGIES: NONE. SOCIAL HISTORY: Former smoker, quit 2 years ago. FAMILY HISTORY: Noncontributory. PHYSICAL EXAMINATION: VITAL SIGNS: T-max 99.2, blood pressure 160/70, pulse 94, respirations 18, and O2 saturation 91% to 96% on room air. GENERAL: Appears in no distress. Oriented. Follows commands. SKIN: Shows the midline ulcers. The top one appears much smaller than previously. The ones closer to the perianal area are deeper, but about 2 x 1 cm in diameter. They are both quite tender. Serosanguinous drainage noted from them. The patient has no lymphadenopathy. HEENT: Noncontributory. NECK: Supple. LUNGS: Symmetrically clear breath sounds. HEART: S1 and S2. Regular rate. No S3 or S4. ABDOMEN: Soft, not distended. No ascites. No bladder distention or organomegaly. EXTREMITIES: Moves extremities equally. Pulses 1+ in dorsalis pedis. NEUROLOGIC: Nonfocal including cognitive function. LABORATORY DATA: White cell count 2.6, total neutrophil count 100, hemoglobin 10.7, MCV 81, and platelets 689. Creatinine 1.04. Previous white cell count on September 21 was 7.7 and the neutrophil percentage was 22%. Liver profile normal. Urinalysis was normal. Microbiology with pending blood cultures. Influenza was negative A and B antigens. Urine culture, no growth for 12 hours. IMAGING STUDIES: Abdomen and pelvis CT showed hepatomegaly, splenomegaly, some interstitial densities in lower pulmonary lobes, pulmonary masses in bilateral lower lobes from Langerhans cell histiocytosis. ASSESSMENT: 1. Obesity. 2. Diabetes mellitus, type 2. 3. Langerhans cell histiocytosis with lung, bone, and soft tissue involvement with chronic ulcers in the perineal area, biopsy-proven involvement. 4. Chemotherapy. 5. Neutropenic fever with wound pain. DISCUSSION: Most likely scenario is transient bacteremia associated with neutropenia and wounds in the back. Continue antimicrobial therapy. Monitor blood cultures and the improvement of white cell count. No other sites of involvement are apparent at this point in time. Job ID: [id number]
[2018-10-16] MEDS: Senokot S 8.6-50 MG TAB PO SCH (19:56)
[2018-10-17] MEDS: Vancomycin HCl 1.75 GM in Sodium Chloride 0.9% 500 ML IVPB SCH ×2 (02:24→14:59)
[2018-10-17] MEDS: Acetaminophen/Codeine 30-300mg Tablet PO PRN ×2 (02:27→19:31)
[2018-10-17] MEDS: Piperacillin/Tazobactam 3.375 GM in Sodium Chloride 0.9% 100 ML IVPB SCH ×4 (05:58→22:49)
[2018-10-17 06:25] LABS: Hemoglobin A1c 7.5 % (4.0-6.0)
[2018-10-17 06:34] LABS: ALT (SGPT) 32 U/L (8-55); AST (SGOT) 22 U/L (5-34); Albumin 2.8 g/dL (3.5-5.0); Alkaline Phosphatase 71 U/L (40-150); Anion Gap 10 mmol/L (10-20); BUN (Urea Nitrogen) 8 mg/dL (8.9-20.6); Bilirubin, Total 0.3 mg/dL (0.2-1.2); CRP (Inflammatory) 14.05 mg/dL (= or < 0.5); Calc. Creatinine Clearance 137 mL/min (70-130); Calcium 8.4 mg/dL (7.8-10.44); Carbon Dioxide 25 mmol/L (22-29); Chloride 114 mmol/L (98-107); Estimated GFR-MDRD 77; Globulin 3.1 g/dL (2.4-3.5); Glucose 123 mg/dL (70-105); Magnesium 1.9 mg/dL (1.6-2.6); Potassium 3.8 mmol/L (3.5-5.1); Protein, Total 5.9 g/dL (6.0-8.3); Sodium 145 mmol/L (136-145)
[2018-10-17 06:36] LABS: Band 6 % (5-11); Hemoglobin 8.8 g/dL (14.0-18.0); Hypochromia SLIGHT = 6-15 cells (100X) (0-5/hpf); Lymphocytes 54 % (21-51); MDiff Complete? YES; Mean Corpuscular HGB CONC 31.4 g/dL (32.0-36.0); Mean Corpuscular Hemoglobin 26.2 pg (27.0-31.0); Mean Corpuscular Volume 83.3 fL (78.0-98.0); Mean Platelet Volume 6.3 fL (7.4-10.4); Monocytes 20 % (0-10); Neutrophil 14 % (42-75); PLT Morphology Comment Appears Increased; Platelet Count 534 thou/uL (130-400); Polychromasia SLIGHT = 2-3 cells (100X) (0-2/hpf); RBC Distribution Width 15.8 % (11.5-14.5); Reactive Lymphocytes 6 % (0-10); Red Blood Cell (RBC) Count 3.37 mill/uL (4.70-6.10); White Blood Cell (WBC) Count 3.2 thou/uL (4.8-10.8)
[2018-10-17] MEDS: Enoxaparin Sodium 40 MG/0.4 ML SYRINGE SC SCH (07:59)
[2018-10-17] MEDS: glipiZIDE 5 MG TAB PO SCH ×2 (07:59→16:56)
[2018-10-17] MEDS: Senokot S 8.6-50 MG TAB PO SCH ×2 (08:00→19:49)
[2018-10-17] MEDS: Lactated Ringer's 1,000 ML IV SCH ×5 (08:57→22:15)
[2018-10-17 14:46] LABS: Vancomycin, Trough 22.4 ug/mL
[2018-10-17] MEDS: Vancomycin HCl 1.5 GM in Sodium Chloride 0.9% 250 ML 300 ML IVPB SCH (16:56)
--- NOTE | 2018-10-17 19:14 | PRG ---
DATE OF SERVICE: 10/17/2018 SUBJECTIVE: Feeling better, less pain in the perineal area. No respiratory symptoms or abdominal pain. OBJECTIVE: VITAL SIGNS: T-max 99.2, BP 97/50. LUNGS: Clear. HEART: S1 and S2, regular rate. ABDOMEN: Soft, not distended. Perineal area about the same. LABORATORY DATA: White cell count 3.2, hemoglobin 8.8, platelets 534, 54% lymphocytes, 6% bands, 14% neutrophils with total neutrophil counts about 600. Microbiology with Staph species in the urine, negative blood cultures thus far. ASSESSMENT AND DISCUSSION: Langerhans cell histiocytosis with lung, soft tissue, and bone involvement. On chemotherapy with likely transient bacteremia associated with neutropenia and wounds in back. Continue broad-spectrum coverage, eventually transition to oral antimicrobial therapy for discharge planning, probably a combination of Augmentin and quinolone. Job ID: [id number]
--- NOTE | 2018-10-17 21:34 | PRG ---
DATE OF SERVICE: 10/17/2018 SUBJECTIVE: The patient denies any new complaints at this time. Feels better. Pain is controlled at this time. No nausea, vomiting, or diarrhea reported. The patient has been afebrile since last night. He had a temperature of 101.2 last night. CURRENT MEDICATIONS: Current medications were reviewed. The patient is currently on Zosyn, vancomycin, and glipizide. PHYSICAL EXAMINATION: VITAL SIGNS: Temperature 98.6, pulse 95, respirations 22, blood pressure 131/58 with O2 saturation 94% on room air. GENERAL: A 48-year-old male in no apparent distress. LUNGS: Clear to auscultation bilaterally. HEART: S1 and S2 present. Regular rate and rhythm. ABDOMEN: Soft. Bowel sounds present. EXTREMITIES: No edema or calf tenderness. NEUROLOGY: Grossly nonfocal. LABORATORY DATA: WBC of 3.2 with 14% neutrophils and 6% bandemia. BUN 8 and creatinine 1.03. Hemoglobin A1c 7.5. Blood cultures have been negative. Urine culture was essentially negative. Influenza testing was negative. IMPRESSION: 1. Sepsis with acute organ dysfunction/neutropenic fever secondary to skin/soft tissue infection. 2. Langerhans cell histiocytosis with lung, soft tissue, and bone involvement, currently on chemotherapy. 3. Morbid obesity with a body mass index of 42.5. 4. Chronic kidney disease, stage 2. 5. Mild persistent asthma. 6. Reactive thrombocytosis. PLAN: The patient will be monitored in the Oncology Unit. We will reduce IV fluid to 70 mL an hour. We will continue vancomycin and Zosyn. We will continue wound care. General Surgery has been consulted per Wound Care recommendation. We will recheck labs in a.m. Continue glipizide. His blood sugars are improving. Plan of care was discussed with the patient. He stated understanding. Job ID: [id number]
[2018-10-18] MEDS: Piperacillin/Tazobactam 3.375 GM in Sodium Chloride 0.9% 100 ML IVPB SCH ×4 (03:39→21:45)
[2018-10-18 04:15] LABS: ALT (SGPT) 27 U/L (8-55); AST (SGOT) 19 U/L (5-34); Albumin 2.9 g/dL (3.5-5.0); Alkaline Phosphatase 78 U/L (40-150); Anion Gap 13 mmol/L (10-20); BUN (Urea Nitrogen) 8 mg/dL (8.9-20.6); Bilirubin, Total 0.2 mg/dL (0.2-1.2); Calc. Creatinine Clearance 135 mL/min (70-130); Calcium 8.4 mg/dL (7.8-10.44); Carbon Dioxide 24 mmol/L (22-29); Chloride 114 mmol/L (98-107); Estimated GFR-MDRD 77; Globulin 3.3 g/dL (2.4-3.5); Glucose 110 mg/dL (70-105); Potassium 3.6 mmol/L (3.5-5.1); Protein, Total 6.2 g/dL (6.0-8.3); Sodium 147 mmol/L (136-145)
[2018-10-18 04:28] LABS: Hemoglobin 9.1 g/dL (14.0-18.0); Mean Corpuscular HGB CONC 31.9 g/dL (32.0-36.0); Mean Corpuscular Hemoglobin 26.4 pg (27.0-31.0); Mean Corpuscular Volume 82.9 fL (78.0-98.0); Mean Platelet Volume 6.4 fL (7.4-10.4); Platelet Count 595 thou/uL (130-400); RBC Distribution Width 15.6 % (11.5-14.5); Red Blood Cell (RBC) Count 3.43 mill/uL (4.70-6.10); White Blood Cell (WBC) Count 3.8 thou/uL (4.8-10.8)
[2018-10-18 04:29] LABS: Band 4 % (5-11); Eosinophils 7 % (0-10); Lymphocytes 71 % (21-51); MDiff Complete? YES; Monocytes 12 % (0-10); Myelocyte 1 % (0-0); Neutrophil 5 % (42-75); PLT Morphology Comment Appears Increased
[2018-10-18] MEDS: Vancomycin HCl 1.5 GM in Sodium Chloride 0.9% 250 ML 300 ML IVPB SCH ×2 (05:21→17:16)
[2018-10-18] MEDS: Enoxaparin Sodium 40 MG/0.4 ML SYRINGE SC SCH (07:56)
[2018-10-18] MEDS: glipiZIDE 5 MG TAB PO SCH ×2 (07:56→16:09)
[2018-10-18] MEDS: Senokot S 8.6-50 MG TAB PO SCH ×2 (07:57→20:33)
[2018-10-18] MEDS: Morphine 2 MG/ML SYRINGE SLOW IVP PRN (07:57)
--- NOTE | 2018-10-18 13:12 | PDOC.PN ---
- Subjective Encounter Start Date: 10/18/18 Encounter Start Time: 08:45 Patient seen and examined for Sepsis. Feels better. No new complaints. No overnight events - Objective Resuscitation Status - Order Detail: 10/16/18 09:53 Resuscitation Status Routine Resuscitation Status: FULL: Full Resuscitation MAR Reviewed: Yes Vital Signs & Weight: Vital Signs (12 hours) Temp Pulse Resp BP Pulse Ox 10/18/18 11:28 98.3 F 79 20 93/55 L 95 10/18/18 09:25 94 18 95 10/18/18 08:00 98 F 82 22 H 99/54 L 99 10/18/18 04:00 99.6 F 91 18 103/56 L 90 L Weight Admit Weight 240 lb 1.6 oz Weight 240 lb 1.6 oz I&O: 10/17/18 10/18/18 10/19/18 06:59 06:59 06:59 Intake Total 1420 5112 Output Total 775 2900 Balance 645 2212 Result Diagrams: 10/18/18 03:48 10/18/18 03:48 Additional Labs: Accuchecks 10/18/18 10/18/18 10/17/18 11:04 05:29 20:17 POC Glucose 132 H 110 105 10/17/18 15:48 POC Glucose 130 H Phys Exam - Physical Examination Constitutional: NAD Respiratory: no wheezing, no rhonchi Cardiovascular: RRR, no rub Gastrointestinal: soft, non-tender, positive bowel sounds Musculoskeletal: no edema Neurological: moves all 4 limbs Dx/Plan - Plan DVT proph w/SCDs 1. Sepsis with acute organ dysfunction/neutropenic fever secondary to skin/soft tissue infection. 2. Langerhans cell histiocytosis with lung, soft tissue, and bone involvement. 3. Morbid obesity with a BMI of 42.5. 4. CKD, stage 2. 5. Mild persistent asthma. 6. Reactive thrombocytosis. PLAN: Cont current IVF AM labs Cont Atbx Prob dc in AM if afebrile and ANC >1500 Review of Systems - Review of Systems Constitutional: negative: fever, chills, sweats, weakness, malaise, other Respiratory: negative: Cough, Dry, Shortness of Breath, Hemoptysis, SOB with Excertion, Pleuritic Pain, Sputum, Wheezing Cardiovascular: negative: chest pain, palpitations, orthopnea, paroxysmal nocturnal dyspnea, edema, light headedness, other Gastrointestinal: negative: Nausea, Vomiting, Abdominal Pain, Diarrhea, Constipation, Melena, Hematochezia, Other - Medications/Allergies Allergies/Adverse Reactions: Allergies Allergy/AdvReac Type Severity Reaction Status Date / Time No Known Allergies Allergy Verified 09/16/18 20:26 Medications: Current Medications Acetaminophen (Tylenol) 650 mg PO Q4H PRN PRN Reason: Headache/Fever/Mild Pain (1-3) Last Admin: 10/16/18 23:58 Dose: 650 mg Acetaminophen/Codeine Phosphate (Tylenol #3) 1 tab PO Q6H PRN PRN Reason: Moderate Pain (4-6) Last Admin: 10/17/18 19:31 Dose: 1 tab Albuterol/Ipratropium (Duoneb) 3 ml NEB Q4H PRN PRN Reason: SOB &/or Wheezing Bisacodyl (Dulcolax) 10 mg [place] DAILYPRN PRN PRN Reason: Constipation Bisacodyl (Dulcolax) 10 mg PO DAILYPRN PRN PRN Reason: Constipation Calcium Carbonate (Tums) 1,000 mg PO Q4H PRN PRN Reason: Heartburn or Indigestion Dextrose/Water (Dextrose 50%) 25 gm SLOW IVP PRN PRN PRN Reason: Hypoglycemia Enoxaparin Sodium (Lovenox) 40 mg SC 0900 [facility] Last Admin: 10/18/18 07:56 Dose: 40 mg Glipizide (Glucotrol) 5 mg PO BID-AC [facility] Last Admin: 10/18/18 07:56 Dose: 5 mg Glucagon (Glucagon) 1 mg IM PRN PRN PRN Reason: Hypoglycemia Piperacillin Sod/Tazobactam (Sod 3.375 gm/ Sodium Chloride) 100 mls @ 200 mls/ hr IVPB 0400,1000,1600,2200 [facility] Last Admin: 10/18/18 10:45 Dose: 100 mls Dextrose/Water (D5w) 1,000 mls @ 0 mls/hr IV .Q0M PRN PRN Reason: Hypoglycemia Vancomycin HCl 1.5 gm/ Sodium (Chloride) 300 mls @ 200 mls/hr IVPB 0500,1700 [facility] Last Admin: 10/18/18 05:21 Dose: 300 mls Lactated Ringer's (Lactated Ringer's) 1,000 mls @ 70 mls/hr IV .[id number] [facility] Last Admin: 10/17/18 22:15 Dose: Not Given Insulin Human Regular (Humulin R) 0 units SC .BEDTIME SLIDING SC PRN PRN Reason: Bedtime Correctional Scale Last Admin: 10/16/18 21:23 Dose: 2 unit Insulin Human Regular (Humulin R) 0 units SC .MODERATE SLIDING SC PRN PRN Reason: Moderate Correctional Scale Last Admin: 10/16/18 11:15 Dose: 2 unit Morphine Sulfate (Morphine) 2 mg SLOW IVP Q6H PRN PRN Reason: Severe Pain (7-10) Stop: 10/21/18 10:19 Last Admin: 10/18/18 07:57 Dose: 2 mg Ondansetron HCl (Zofran Odt) 4 mg PO Q6H PRN PRN Reason: Nausea/Vomiting Ondansetron HCl (Zofran) 4 mg IVP Q6H PRN PRN Reason: Nausea/Vomiting Senna/Docusate Sodium (Senokot S) 1 tab PO BID [facility] Last Admin: 10/18/18 07:57 Dose: Not Given Sodium Chloride (Flush - Normal Saline) 10 ml IVF PRN PRN PRN Reason: Saline Flush Last Admin: 10/16/18 10:09 Dose: 10 ml Tramadol HCl (Ultram) 50 mg PO Q4H PRN PRN Reason: Moderate Pain (4-6) Last Admin: 10/16/18 15:24 Dose: 50 mg
--- NOTE | 2018-10-18 14:04 | EKG ---
Test Reason : Blood Pressure : / mmHG Vent. Rate : 111 BPM Atrial Rate : 111 BPM P-R Int : 152 ms QRS Dur : 094 ms QT Int : 352 ms P-R-T Axes : 033 071 035 degrees QTc Int : 478 ms Sinus tachycardia Otherwise normal ECG Confirmed by TARAS ROSE DO ([id number]), publishing editor GEORGETTE WALDRON ([id number] on 10/18/2018 2:04:21 PM Referred By: Confirmed By:TARAS ROSE DO
[2018-10-18] MEDS: Lactated Ringer's 1,000 ML IV SCH (16:08)
[2018-10-18] MEDS: traMADol HCl 50 MG TAB PO PRN (17:19)
--- NOTE | 2018-10-18 17:48 | PRG ---
DATE OF SERVICE: 10/18/2018 SUBJECTIVE: Mr. Cowan is hospitalized for neutropenia and is undergoing chemotherapy for Langerhans histiocytosis, sacrum and perianal. I had performed biopsies of both areas documenting this. I have been asked to see him regarding his sacral and perianal wound. Today, I looked at the wound at the bedside. The wounds are baseline and in fact much improved relative to when I saw them a few weeks ago. I would recommend continuation of chemotherapy. At this point, his wounds are not a surgical problem and are treated with chemotherapy. I will see him as needed. Can continue care as currently delivered. Job ID: [id number]
[2018-10-19] MEDS: Piperacillin/Tazobactam 3.375 GM in Sodium Chloride 0.9% 100 ML IVPB SCH ×4 (04:02→22:36)
[2018-10-19 04:44] LABS: ALT (SGPT) 24 U/L (8-55); AST (SGOT) 14 U/L (5-34); Albumin 3.2 g/dL (3.5-5.0); Alkaline Phosphatase 80 U/L (40-150); Anion Gap 10 mmol/L (10-20); BUN (Urea Nitrogen) 6 mg/dL (8.9-20.6); Bilirubin, Total 0.3 mg/dL (0.2-1.2); Calc. Creatinine Clearance 137 mL/min (70-130); Carbon Dioxide 29 mmol/L (22-29); Chloride 116 mmol/L (98-107); Estimated GFR-MDRD 77; Globulin 3.7 g/dL (2.4-3.5); Glucose 101 mg/dL (70-105); Potassium 3.9 mmol/L (3.5-5.1); Protein, Total 6.9 g/dL (6.0-8.3); Sodium 151 mmol/L (136-145)
[2018-10-19 05:10] LABS: Vancomycin, Trough 29.5 ug/mL
[2018-10-19] MEDS: Vancomycin HCl 1.5 GM in Sodium Chloride 0.9% 250 ML 300 ML IVPB SCH (05:19)
[2018-10-19 05:22] LABS: Band 1 % (5-11); Eosinophils 1 % (0-10); Hemoglobin 10.2 g/dL (14.0-18.0); Hypochromia SLIGHT = 6-15 cells (100X) (0-5/hpf); Lymphocytes 75 % (21-51); MDiff Complete? YES; Mean Corpuscular HGB CONC 32.2 g/dL (32.0-36.0); Mean Corpuscular Hemoglobin 26.9 pg (27.0-31.0); Mean Corpuscular Volume 83.6 fL (78.0-98.0); Mean Platelet Volume 6.9 fL (7.4-10.4); Metamyelocyte 3 % (0-0); Monocytes 7 % (0-10); Myelocyte 1 % (0-0); Neutrophil 12 % (42-75); PLT Morphology Comment Appears Increased; Platelet Count 595 thou/uL (130-400); RBC Distribution Width 15.9 % (11.5-14.5); Red Blood Cell (RBC) Count 3.78 mill/uL (4.70-6.10); White Blood Cell (WBC) Count 5.5 thou/uL (4.8-10.8)
[2018-10-19] MEDS: Morphine 2 MG/ML SYRINGE SLOW IVP PRN (08:40)
[2018-10-19] MEDS: glipiZIDE 5 MG TAB PO SCH ×2 (08:41→16:10)
[2018-10-19] MEDS: Enoxaparin Sodium 40 MG/0.4 ML SYRINGE SC SCH (08:42)
[2018-10-19] MEDS: Senokot S 8.6-50 MG TAB PO SCH ×2 (08:46→21:18)
[2018-10-19] MEDS: Lactated Ringer's 1,000 ML IV SCH (09:13)
--- NOTE | 2018-10-19 11:02 | PDOC.PN ---
- Subjective Encounter Start Date: 10/19/18 Encounter Start Time: 08:30 Patient seen and examined for Sepsis. Feels better. No new complaints. No overnight events - Objective Resuscitation Status - Order Detail: 10/16/18 09:53 Resuscitation Status Routine Resuscitation Status: FULL: Full Resuscitation MAR Reviewed: Yes Vital Signs & Weight: Vital Signs (12 hours) Temp Pulse Resp BP BP BP Pulse Ox 10/19/18 08:00 98.2 F 72 16 114/61 100 10/19/18 04:00 98.3 F 78 12 118/77 97 10/19/18 00:00 98.5 F 78 12 94/50 L 96 Weight Admit Weight 240 lb 1.6 oz Weight 240 lb 1.6 oz I&O: 10/18/18 10/19/18 10/20/18 06:59 06:59 06:59 Intake Total 5112 3650 Output Total 2900 600 Balance 2212 3050 Result Diagrams: 10/19/18 04:20 10/19/18 04:20 Additional Labs: Accuchecks 10/19/18 10/18/18 10/18/18 05:34 20:44 15:53 POC Glucose 153 H 130 H 103 10/18/18 11:04 POC Glucose 132 H Phys Exam - Physical Examination Constitutional: NAD Respiratory: no wheezing, no rhonchi Cardiovascular: RRR, no rub Gastrointestinal: soft, non-tender, positive bowel sounds Musculoskeletal: no edema Neurological: moves all 4 limbs Dx/Plan - Plan DVT proph w/SCDs 1. Sepsis with acute organ dysfunction/neutropenic fever secondary to skin/soft tissue infection. 2. Langerhans cell histiocytosis with lung, soft tissue, and bone involvement. 3. Morbid obesity with a BMI of 42.5. 4. CKD, stage 2. 5. Mild persistent asthma. 6. Reactive thrombocytosis. PLAN: DC IVF Cont Atbx CBC in AM Prob dc in AM if afebrile and ANC >1500 Cont wound care Microbiology 10/16/18 03:00 Urine voided Urine Culture - Final Staphylococcus species 10/16/18 01:46 Nasal swab Influenza Types A,B Direct EIA - Final 10/16/18 01:31 Venous blood - Right Arm Blood Culture - Preliminary NO GROWTH AT 48 HOURS 10/16/18 01:31 Venous blood - Left Arm Blood Culture - Preliminary NO GROWTH AT 48 HOURS Review of Systems - Review of Systems Respiratory: negative: Cough, Dry, Shortness of Breath, Hemoptysis, SOB with Excertion, Pleuritic Pain, Sputum, Wheezing Cardiovascular: negative: chest pain, palpitations, orthopnea, paroxysmal nocturnal dyspnea, edema, light headedness, other - Medications/Allergies Allergies/Adverse Reactions: Allergies Allergy/AdvReac Type Severity Reaction Status Date / Time No Known Allergies Allergy Verified 09/16/18 20:26 Medications: Current Medications Acetaminophen (Tylenol) 650 mg PO Q4H PRN PRN Reason: Headache/Fever/Mild Pain (1-3) Last Admin: 10/16/18 23:58 Dose: 650 mg Acetaminophen/Codeine Phosphate (Tylenol #3) 1 tab PO Q6H PRN PRN Reason: Moderate Pain (4-6) Last Admin: 10/17/18 19:31 Dose: 1 tab Albuterol/Ipratropium (Duoneb) 3 ml NEB Q4H PRN PRN Reason: SOB &/or Wheezing Bisacodyl (Dulcolax) 10 mg [place] DAILYPRN PRN PRN Reason: Constipation Bisacodyl (Dulcolax) 10 mg PO DAILYPRN PRN PRN Reason: Constipation Calcium Carbonate (Tums) 1,000 mg PO Q4H PRN PRN Reason: Heartburn or Indigestion Dextrose/Water (Dextrose 50%) 25 gm SLOW IVP PRN PRN PRN Reason: Hypoglycemia Enoxaparin Sodium (Lovenox) 40 mg SC 0900 [facility] Last Admin: 10/19/18 08:42 Dose: 40 mg Glipizide (Glucotrol) 5 mg PO BID-AC [facility] Last Admin: 10/19/18 08:41 Dose: 5 mg Glucagon (Glucagon) 1 mg IM PRN PRN PRN Reason: Hypoglycemia Piperacillin Sod/Tazobactam (Sod 3.375 gm/ Sodium Chloride) 100 mls @ 200 mls/ hr IVPB 0400,1000,1600,2200 [facility] Last Admin: 10/19/18 10:33 Dose: 100 mls Dextrose/Water (D5w) 1,000 mls @ 0 mls/hr IV .Q0M PRN PRN Reason: Hypoglycemia Vancomycin HCl 1 gm/ Device 200 mls @ 200 mls/hr IVPB Q12HR [facility] Insulin Human Regular (Humulin R) 0 units SC .BEDTIME SLIDING SC PRN PRN Reason: Bedtime Correctional Scale Last Admin: 10/16/18 21:23 Dose: 2 unit Insulin Human Regular (Humulin R) 0 units SC .MODERATE SLIDING SC PRN PRN Reason: Moderate Correctional Scale Last Admin: 10/16/18 11:15 Dose: 2 unit Morphine Sulfate (Morphine) 2 mg SLOW IVP Q6H PRN PRN Reason: Severe Pain (7-10) Stop: 10/21/18 10:19 Last Admin: 10/19/18 08:40 Dose: 2 mg Ondansetron HCl (Zofran Odt) 4 mg PO Q6H PRN PRN Reason: Nausea/Vomiting Ondansetron HCl (Zofran) 4 mg IVP Q6H PRN PRN Reason: Nausea/Vomiting Senna/Docusate Sodium (Senokot S) 1 tab PO BID [facility] Last Admin: 10/19/18 08:46 Dose: Not Given Sodium Chloride (Flush - Normal Saline) 10 ml IVF PRN PRN PRN Reason: Saline Flush Last Admin: 10/16/18 10:09 Dose: 10 ml Tramadol HCl (Ultram) 50 mg PO Q4H PRN PRN Reason: Moderate Pain (4-6) Last Admin: 10/18/18 17:19 Dose: 50 mg
[2018-10-19] MEDS: Vancomycin HCl 1 GM in Premix Bag 1 BAG IVPB SCH (21:18)
[2018-10-20] MEDS: Piperacillin/Tazobactam 3.375 GM in Sodium Chloride 0.9% 100 ML IVPB SCH ×2 (04:11→10:49)
[2018-10-20 05:14] LABS: Band 10 % (5-11); Eosinophils 1 % (0-10); Hemoglobin 9.4 g/dL (14.0-18.0); Lymphocytes 56 % (21-51); MDiff Complete? YES; Mean Corpuscular HGB CONC 31.6 g/dL (32.0-36.0); Mean Corpuscular Hemoglobin 26.4 pg (27.0-31.0); Mean Corpuscular Volume 83.6 fL (78.0-98.0); Metamyelocyte 4 % (0-0); Monocytes 12 % (0-10); Myelocyte 4 % (0-0); Neutrophil 13 % (42-75); PLT Morphology Comment Appears Increased; Platelet Count 468 thou/uL (130-400); RBC Distribution Width 16.3 % (11.5-14.5); Red Blood Cell (RBC) Count 3.56 mill/uL (4.70-6.10)
[2018-10-20] MEDS: Acetaminophen/Codeine 30-300mg Tablet PO PRN (06:18)
[2018-10-20] MEDS: traMADol HCl 50 MG TAB PO PRN (07:42)
[2018-10-20] MEDS: glipiZIDE 5 MG TAB PO SCH (07:42)
[2018-10-20] MEDS ORDERED: Dextrose 5% in Water 1,000 ML IV SCH (08:45)
[2018-10-20] MEDS: Enoxaparin Sodium 40 MG/0.4 ML SYRINGE SC SCH (08:58)
[2018-10-20] MEDS: Senokot S 8.6-50 MG TAB PO SCH (09:01)
[2018-10-20] MEDS: Vancomycin HCl 1 GM in Premix Bag 1 BAG IVPB SCH (09:01)
--- NOTE | 2018-10-20 11:08 | PRG ---
DATE OF SERVICE: 10/20/2018 SUBJECTIVE: Less pain in the wound areas in the perineal region. No respiratory symptoms or abdominal pain. No diarrhea. OBJECTIVE: VITAL SIGNS: Temperature max 98.8. Other vital signs are normal. GENERAL: Awake, alert, and oriented. LUNGS: Clear. HEART: S1 and S2, regular rate. ABDOMEN: Soft. Wounds appear with good granulation. LABORATORY DATA: White cell count is up to 6.0, total neutrophil count is about 1500, and creatinine 1.03. Microbiology is not remarkable. Negative blood cultures. ASSESSMENT AND DISCUSSION: Langerhans cell histiocytosis of lung, soft tissue and bone involvement, on chemotherapy, with transient bacteremia probably secondary to neutropenia from chemotherapy. Now, the patient has improved. We would recommend discharge planning with probably combination of Augmentin and quinolone for about a week. Job ID: [id number]
[2018-10-20 12:41] VITALS: BP 121/58; TEMP 98.2
--- NOTE | 2018-10-21 10:52 | DIS ---
DATE OF ADMISSION: 10/16/2018 DATE OF DISCHARGE: 10/20/2018 DISCHARGE DISPOSITION: Home. FOLLOWUP: Follow up with primary care physician at [facility] in 1 week. Follow up with Infectious Disease, Dr. Dillard in 2 to 3 weeks. ALLERGIES: NO KNOWN DRUG ALLERGIES. THE PATIENT WAS SEEN AND EXAMINED ON THE DAY OF DISCHARGE. DENIES ANY NEW COMPLAINTS. NO CHEST PAIN, SHORTNESS OF BREATH, OR PALPITATIONS. DISCHARGE MEDICATIONS: 1. Augmentin 875 mg twice a day for 1 week. 2. Levaquin 500 mg daily for 1 week. 3. Glipizide 5 mg daily. All other home medications were left unchanged. Blood cultures were negative. Influenza testing negative. Urine cultures were essentially negative. It showed less than 5000 colonies of Staphylococcus, probably contamination. WBC on admission 2.6, at discharge 6.0 with 13% neutrophils and 10% bandemia. Urinalysis was negative for wbc and bacteria. BRIEF HOSPITAL COURSE: The patient is a 48-year-old male with Langerhans cell histiocytosis, currently on treatment, presented to the hospital with fever. Please refer to the history and physical dated October 16, 2018 for further details. The patient was admitted to the hospital with a diagnosis of sepsis with acute organ dysfunction/neutropenic fever of unclear etiology. He was started on broad-spectrum antibiotics with good improvement. His CT scan of the abdomen and pelvis done in the emergency room was essentially negative except for hepatomegaly, splenomegaly, and hepatic steatosis. Chest x-ray was negative. His cultures remain negative. He will be discharged home on Augmentin and Levaquin per Infectious Disease recommendation. He also received wound care for the chronic ulceration from Langerhans cell histiocytosis. He was also evaluated by Infectious Disease as well as General Surgery, Dr. Martin. FINAL DIAGNOSES: 1. Sepsis with acute organ dysfunction/neutropenic fever, probably secondary to skin/soft tissue infection. 2. Langerhans cell histiocytosis with lung, soft tissue, and bone involvement. 3. Morbid obesity with a BMI of 42.5. 4. Chronic kidney disease, stage 2. 5. Mild persistent asthma. 6. Reactive thrombocytosis. PLAN: Plan of care was discussed with the patient in detail. He stated understanding. Total time coordinating the discharge of this patient was 32 minutes. Job ID: [id number]
== END 2018-10-20 14:32 | disposition home or self-care (01) | DRG 872 ==
LOC: ERS 01:15 → 2SE 05:23 → ONC 11:51
PROVIDERS: ADMIT Internal Medicine; ATTEND Internal Medicine
DX: A41.9 Sepsis, unspecified organism (principal); C96.0 Multifocal and multisystemic (disseminated) Langerhans-cell histiocytosis; Z68.41 Body mass index [BMI] 40.0-44.9, adult; E11.9 Type 2 diabetes mellitus without complications; R50.81 Fever presenting with conditions classified elsewhere; Z79.4 Long term (current) use of insulin; Z79.51 Long term (current) use of inhaled steroids; Z79.84 Long term (current) use of oral hypoglycemic drugs; Z79.01 Long term (current) use of anticoagulants; R65.20 Severe sepsis without septic shock; J45.30 Mild persistent asthma, uncomplicated; D47.3 Essential (hemorrhagic) thrombocythemia; N18.2 Chronic kidney disease, stage 2 (mild); E66.01 Morbid (severe) obesity due to excess calories; D70.1 Agranulocytosis secondary to cancer chemotherapy; T45.1X5A Adverse effect of antineoplastic and immunosuppressive drugs, initial encounter
CPT/HCPCS: 36415; 36416; 71045; 74177; 80053; 80202; 81003; 83036; 83605; 83735; 85007; 85025; 85027; 86140; 87040; 87086; 87804; 93005; 96361; 96365; 96367; 96368; 96375; J1650; J1815; J1885; J2270; J2405; J2543; J3370; J3490; J7050; Q9967

== ENCOUNTER 2018-10-31 10:45 | Day surgery (SDC) | payer OTHER ==
[2018-10-31] MEDS ORDERED: Sodium Chloride 0.9% 30 ML ONE (11:04)
[2018-10-31 11:12] VITALS: BP 138/82; TEMP 98.5
[2018-10-31] MEDS ORDERED: METHYLPREDNISOLONE SOD SUCC IVP SCH (11:15)
[2018-10-31] MEDS ORDERED: SODIUM CHLORIDE 0.9% IVPB SCH (11:15)
[2018-10-31] MEDS ORDERED: SODIUM CHLORIDE 0.9% IVP SCH (11:15)
[2018-10-31] MEDS ORDERED: Ondansetron PF 4 MG/2 ML Vial IVP SCH (11:15)
[2018-10-31] MEDS ORDERED: CYTARABINE IVPB SCH (11:15)
== END 2018-10-31 15:32 | disposition home or self-care (01) ==
LOC: ONC/OP 10:45
PROVIDERS: ATTEND Internal Medicine Hematology & Oncology
DX: Z51.11 Encounter for antineoplastic chemotherapy (principal); C96.0 Multifocal and multisystemic (disseminated) Langerhans-cell histiocytosis; Z79.2 Long term (current) use of antibiotics; Z79.4 Long term (current) use of insulin; Z79.899 Other long term (current) drug therapy
CPT/HCPCS: 80053; 82248; 83615; 84100; 84550; 96367; 96375; 96413; 96415; J1642; J2405; J2920; J7050; J9100

== ENCOUNTER 2018-11-01 13:22 | Day surgery (SDC) | payer OTHER ==
[2018-11-01] MEDS ORDERED: Ondansetron HCl/PF 10 MG in Sodium Chloride 0.9% 50 ML IVPB SCH (13:30)
[2018-11-01] MEDS ORDERED: SODIUM CHLORIDE 0.9% IVPB SCH ×2 (13:30)
[2018-11-01] MEDS ORDERED: CYTARABINE IVPB SCH (13:30)
[2018-11-01] MEDS ORDERED: METHYLPREDNISOLONE SOD SUCC IVPB SCH (13:30)
[2018-11-01] MEDS ORDERED: Sodium Chloride 0.9% 20 ML ONE (13:40)
[2018-11-01 15:20] VITALS: BP 132/66; TEMP 98.3
== END 2018-11-01 18:04 | disposition home or self-care (01) ==
LOC: ONC/OP 13:22
PROVIDERS: ATTEND Internal Medicine Hematology & Oncology
DX: Z51.11 Encounter for antineoplastic chemotherapy (principal); C96.0 Multifocal and multisystemic (disseminated) Langerhans-cell histiocytosis; D70.8 Other neutropenia
CPT/HCPCS: 96366; 96375; 96413; 96415; J1642; J2405; J2920; J7050; J9100

== ENCOUNTER 2018-11-02 13:27 | Day surgery (SDC) | payer OTHER ==
[2018-11-02] MEDS ORDERED: Sodium Chloride 0.9% 20 ML ONE (13:29)
[2018-11-02] MEDS ORDERED: METHYLPREDNISOLONE SOD SUCC IVPB SCH (13:45)
[2018-11-02] MEDS ORDERED: Ondansetron PF 4 MG/2 ML Vial SLOW IVP SCH (13:45)
[2018-11-02] MEDS ORDERED: SODIUM CHLORIDE 0.9% IVPB SCH ×2 (13:45)
[2018-11-02] MEDS ORDERED: CYTARABINE IVPB SCH (13:45)
[2018-11-02 13:53] VITALS: BP 139/73; TEMP 98.3
== END 2018-11-02 16:44 | disposition home or self-care (01) ==
LOC: ONC/OP 13:27
PROVIDERS: ATTEND Internal Medicine Hematology & Oncology
DX: Z51.11 Encounter for antineoplastic chemotherapy (principal); C96.0 Multifocal and multisystemic (disseminated) Langerhans-cell histiocytosis; D70.8 Other neutropenia; Z79.51 Long term (current) use of inhaled steroids; Z79.899 Other long term (current) drug therapy
CPT/HCPCS: 96367; 96375; 96413; 96415; J1642; J2405; J2920; J7050; J9100

== ENCOUNTER 2018-11-03 10:01 | Day surgery (SDC) | payer OTHER, SELFPAY ==
[2018-11-03] MEDS ORDERED: Ondansetron PF 4 MG/2 ML Vial SLOW IVP SCH (10:15)
[2018-11-03 10:28] VITALS: BP 140/74; TEMP 98.4
[2018-11-03] MEDS ORDERED: Sodium Chloride 0.9% 30 ML ONE (10:32)
[2018-11-03] MEDS ORDERED: SODIUM CHLORIDE 0.9% IVPB SCH ×2 (10:45→11:00)
[2018-11-03] MEDS ORDERED: METHYLPREDNISOLONE SOD SUCC IVPB SCH (10:45)
[2018-11-03] MEDS ORDERED: CYTARABINE IVPB SCH (11:00)
== END 2018-11-03 14:13 | disposition home or self-care (01) ==
LOC: ONC/OP 10:01
PROVIDERS: ATTEND Internal Medicine Hematology & Oncology
DX: Z51.11 Encounter for antineoplastic chemotherapy (principal); C96.0 Multifocal and multisystemic (disseminated) Langerhans-cell histiocytosis; D70.8 Other neutropenia
CPT/HCPCS: 96367; 96375; 96413; J1642; J2405; J2920; J7050; J9100

== ENCOUNTER 2018-11-04 10:58 | Day surgery (SDC) | payer OTHER, SELFPAY ==
[2018-11-04] MEDS ORDERED: Sodium Chloride 0.9% 20 ML ONE (11:40)
[2018-11-04] MEDS ORDERED: METHYLPREDNISOLONE SOD SUCC IVPB SCH (12:00)
[2018-11-04] MEDS ORDERED: Ondansetron PF 4 MG/2 ML Vial SLOW IVP SCH (12:00)
[2018-11-04] MEDS ORDERED: SODIUM CHLORIDE 0.9% IVPB SCH ×2 (12:00→12:30)
[2018-11-04] MEDS ORDERED: CYTARABINE IVPB SCH (12:30)
[2018-11-04 12:57] VITALS: BP 129/74; TEMP 98.4
== END 2018-11-04 14:51 | disposition home or self-care (01) ==
LOC: ONC/OP 10:58
PROVIDERS: ATTEND Internal Medicine Hematology & Oncology
DX: Z51.11 Encounter for antineoplastic chemotherapy (principal); C96.0 Multifocal and multisystemic (disseminated) Langerhans-cell histiocytosis; D70.8 Other neutropenia
CPT/HCPCS: 96367; 96375; 96413; 96415; J1642; J2405; J2920; J7050; J9100

== ENCOUNTER 2018-11-22 12:22 | Outpatient (CLI) | payer OTHER ==
--- NOTE | 2018-11-22 15:00 | PET ---
PET SCAN WITH CT ATTENUATION CORRECTION: HISTORY: Langerhans cell histiocytosis. COMPARISON: 08/04/2018 TECHNIQUE: PET scan with CT attenuation correction is performed from the base of the brain to the proximal thigh s, following the intravenous administration of 10.4 millicuries of F18 fluorodeoxyglucose. FINDINGS: HEAD/NECK: Previously noted FDG avidity in the right gingiva is no longer appreciated. Poor dentiti on is again demonstrated. There is persistent and symmetric increased FDG avidity in the palatine to nsils, currently with a maximum SUV of 4.5 on the right and maximum SUV of 4.9 on the left. CHEST: CT used for attenuation correction demonstrates extensive and chronic changes of the lung par enchyma. There is no evidence of FDG avidity in the lung parenchyma. There is no abnormal FDG avidi ty in the mediastinum. No axillary hypermetabolic activity. There is persistent FDG avidity in the right paravertebral region. The degree of FDG avidity has decreased at the T3 level. Currently, the maximum SUV is 2.5, which is in the upper limits of normal. Previously, the maximum SUV in this reg ion was reported to be 3.8. There is a second more prominent focus of FDG avidity at approximately t he T5 level, with a maximum SUV of 3.7. Previously, the maximum SUV in this region was also 3.7. No new areas of perivertebral FDG avidity is appreciated. CT used for attenuation correction demonstra antonio a destructive process involving the lateral right 6th rib. No associated FDG avidity. The previ ously noted FDG avidity in the posterior mediastinum, along the esophagus, is less evident. Currentl y, the maximum SUV is 2.8. Previously, this maximum SUV was reported to be 4.3. ABDOMEN/PELVIS: There is no abnormal FDG avidity. There is a previously noted small focus of FDG av idity adjacent to the right hemidiaphragm that is less evident on the current exam. OSSEOUS STRUCTURES: Mild FDG avidity at the T9 and T10 vertebral bodies with a maximum SUV of 3.5 an d 3.7, respectively. IMPRESSION: There does appear to be an partial response to therapy. The previously identified perivertebral FDG avidity is less evident on the current study. There is still some FDG avidity involving the mid thor acic vertebrae, as well as the bilateral palatine tonsils. There is also still some mild FDG avidity along the right paraspinal region, from T3 to T5. POS: BARRYH
== END 2018-11-22 12:23 | disposition home or self-care (01) ==
LOC: PET 12:22
PROVIDERS: ATTEND Internal Medicine Hematology & Oncology
DX: C96.6 Unifocal Langerhans-cell histiocytosis (principal)
CPT/HCPCS: 78815; A9552

== ENCOUNTER 2018-11-28 12:46 | Day surgery (SDC) | payer OTHER ==
[2018-11-28 12:58] VITALS: BP 136/67; TEMP 99.5
[2018-11-28] MEDS ORDERED: Ondansetron PF 4 MG/2 ML Vial IVP SCH (13:15)
[2018-11-28] MEDS ORDERED: CYTARABINE IVPB SCH ×2 (13:30)
[2018-11-28] MEDS ORDERED: Sodium Chloride 0.9% 20 ML ONE (13:30)
[2018-11-28] MEDS ORDERED: SODIUM CHLORIDE 0.9% IVPB SCH ×2 (13:30)
== END 2018-11-28 16:50 | disposition home or self-care (01) ==
LOC: ONC/OP 12:46
PROVIDERS: ATTEND Internal Medicine Hematology & Oncology
DX: Z51.11 Encounter for antineoplastic chemotherapy (principal); C96.0 Multifocal and multisystemic (disseminated) Langerhans-cell histiocytosis; D70.8 Other neutropenia; Z87.891 Personal history of nicotine dependence
CPT/HCPCS: 96375; 96413; 96415; J1642; J2405; J2920; J7050; J9100

== ENCOUNTER 2018-11-29 12:48 | Day surgery (SDC) | payer OTHER ==
[~2018-11-29 12:48] MED LIST changes: +ADMIXTURE FEE IVPB SCH; -ISOVUE-370 76%-LOCM 1 ML ONE; +METHYLPREDNISOLONE SOD SUCC IVPB SCH; +Ondansetron PF 4 MG/2 ML Vial SLOW IVP SCH; +[UNRECOGNIZED DRUG - OTHER] IVPB SCH
[2018-11-29] MEDS ORDERED: Sodium Chloride 0.9% 20 ML ONE ×2 (13:10→14:27)
[2018-11-29] MEDS ORDERED: CYTARABINE IVPB SCH (14:00)
[2018-11-29] MEDS ORDERED: SODIUM CHLORIDE 0.9% IVPB SCH (14:00)
[2018-11-29 14:38] VITALS: BP 153/84; TEMP 98.5
== END 2018-11-29 16:59 | disposition home or self-care (01) ==
LOC: ONC/OP 12:48
PROVIDERS: ATTEND Internal Medicine Hematology & Oncology
DX: Z51.11 Encounter for antineoplastic chemotherapy (principal); C96.0 Multifocal and multisystemic (disseminated) Langerhans-cell histiocytosis; D70.8 Other neutropenia; Z79.84 Long term (current) use of oral hypoglycemic drugs; Z79.899 Other long term (current) drug therapy
CPT/HCPCS: 96367; 96375; 96413; 96415; J1642; J2405; J2920; J7050; J9100

== ENCOUNTER 2018-11-30 12:47 | Day surgery (SDC) | payer OTHER ==
[2018-11-30] MEDS ORDERED: SODIUM CHLORIDE 0.9% IVPB SCH (13:30)
[2018-11-30] MEDS ORDERED: Ondansetron PF 4 MG/2 ML Vial IVP SCH (13:30)
[2018-11-30] MEDS ORDERED: CYTARABINE IVPB SCH (13:30)
[2018-11-30 13:49] VITALS: BP 125/70; TEMP 98.5
== END 2018-11-30 16:54 | disposition home or self-care (01) ==
LOC: ONC/OP 12:47
PROVIDERS: ATTEND Internal Medicine Hematology & Oncology
DX: Z51.11 Encounter for antineoplastic chemotherapy (principal); C96.0 Multifocal and multisystemic (disseminated) Langerhans-cell histiocytosis; D70.8 Other neutropenia; Z79.2 Long term (current) use of antibiotics; Z79.51 Long term (current) use of inhaled steroids
CPT/HCPCS: 96375; 96413; J2405; J2920; J7050; J9100

== ENCOUNTER 2018-12-01 09:11 | Day surgery (SDC) | payer OTHER ==
[2018-12-01] MEDS ORDERED: Sodium Chloride 0.9% 20 ML ONE (09:28)
[2018-12-01 09:30] VITALS: BP 128/65; TEMP 98.4
[2018-12-01] MEDS ORDERED: SODIUM CHLORIDE 0.9% IVPB SCH (10:00)
[2018-12-01] MEDS ORDERED: CYTARABINE IVPB SCH (10:00)
[2018-12-01] MEDS ORDERED: Ondansetron PF 4 MG/2 ML Vial IVP SCH (10:00)
== END 2018-12-01 12:21 | disposition home or self-care (01) ==
LOC: ONC/OP 09:11
PROVIDERS: ATTEND Internal Medicine Hematology & Oncology
DX: Z51.11 Encounter for antineoplastic chemotherapy (principal); C96.0 Multifocal and multisystemic (disseminated) Langerhans-cell histiocytosis; D70.8 Other neutropenia; Z79.51 Long term (current) use of inhaled steroids
CPT/HCPCS: 96375; 96413; 96415; J1642; J2405; J2920; J7050; J9100

== ENCOUNTER 2018-12-02 06:55 | Day surgery (SDC) | payer OTHER ==
[~2018-12-02 06:55] MED LIST changes: -ADMIXTURE FEE IVPB SCH; +CYTARABINE IVPB SCH; -METHYLPREDNISOLONE SOD SUCC IVPB SCH; +Ondansetron HCl/PF 10 MG in Sodium Chloride 0.9% 50 ML IVPB SCH; -Ondansetron PF 4 MG/2 ML Vial SLOW IVP SCH; +SODIUM CHLORIDE 0.9% IVPB SCH; -[UNRECOGNIZED DRUG - OTHER] IVPB SCH
[2018-12-02] MEDS ORDERED: Sodium Chloride 0.9% 20 ML ONE (13:20)
[2018-12-02 13:54] VITALS: BP 119/68; TEMP 99
== END 2018-12-02 16:34 | disposition home or self-care (01) ==
LOC: ONC/OP 06:55
PROVIDERS: ATTEND Internal Medicine Hematology & Oncology
DX: Z51.11 Encounter for antineoplastic chemotherapy (principal); C96.0 Multifocal and multisystemic (disseminated) Langerhans-cell histiocytosis; D70.8 Other neutropenia
CPT/HCPCS: 96375; 96413; 96415; J1642; J2405; J2920; J7050; J9100

== ENCOUNTER 2018-12-26 00:05 | Day surgery (SDC) | payer OTHER ==
[2018-12-26] MEDS ORDERED: Ondansetron PF 4 MG/2 ML Vial SLOW IVP SCH (02:45)
[2018-12-26] MEDS ORDERED: Bacteriostatic Water 30 ML VIAL IVP SCH (02:45)
[2018-12-26] MEDS ORDERED: SODIUM CHLORIDE 0.9% IVPB SCH (02:45)
[2018-12-26] MEDS ORDERED: CYTARABINE IVPB SCH (02:45)
[2018-12-26] MEDS ORDERED: methylPREDNISolone Sod Succ 40 MG VIAL IVP SCH (02:45)
[2018-12-26] MEDS ORDERED: Ondansetron 2MG/ML MDV 10 MG in Sodium Chloride 0.9% 50 ML IVPB SCH (07:30)
[2018-12-26] MEDS ORDERED: Sodium Chloride 0.9% 20 ML ONE (10:38)
== END 2018-12-26 14:22 | disposition home or self-care (01) ==
LOC: ONC/OP 00:05
PROVIDERS: ATTEND Internal Medicine Hematology & Oncology
DX: Z51.11 Encounter for antineoplastic chemotherapy (principal); C96.0 Multifocal and multisystemic (disseminated) Langerhans-cell histiocytosis; D70.8 Other neutropenia; E11.9 Type 2 diabetes mellitus without complications; J44.9 Chronic obstructive pulmonary disease, unspecified; Z90.49 Acquired absence of other specified parts of digestive tract; Z87.891 Personal history of nicotine dependence; Z79.2 Long term (current) use of antibiotics; Z79.899 Other long term (current) drug therapy; Z98.890 Other specified postprocedural states
CPT/HCPCS: 36415; 80053; 82248; 83615; 84100; 84550; 96375; 96413; 96415; J1642; J2405; J2920; J7050; J9100

== ENCOUNTER 2018-12-27 13:01 | Day surgery (SDC) | payer OTHER ==
[~2018-12-27 13:01] MED LIST changes: +Bacteriostatic Water 30 ML VIAL IVP SCH; +Sodium Chloride 0.9% 20 ML ONE; +methylPREDNISolone Sod Succ 40 MG VIAL IVP SCH
[2018-12-27 13:17] VITALS: BP 127/72; TEMP 97.9
== END 2018-12-27 15:39 | disposition home or self-care (01) ==
LOC: ONC/OP 13:01
PROVIDERS: ATTEND Internal Medicine Hematology & Oncology
DX: Z51.11 Encounter for antineoplastic chemotherapy (principal); C96.0 Multifocal and multisystemic (disseminated) Langerhans-cell histiocytosis; D70.8 Other neutropenia
CPT/HCPCS: 96375; 96413; 96415; J1642; J2405; J2920; J7050; J9100

== ENCOUNTER 2018-12-28 00:16 | Day surgery (SDC) | payer OTHER ==
[2018-12-28] MEDS ORDERED: SODIUM CHLORIDE 0.9% IVPB SCH (02:15)
[2018-12-28] MEDS ORDERED: methylPREDNISolone Sod Succ 40 MG VIAL IVP SCH (02:15)
[2018-12-28] MEDS ORDERED: Ondansetron HCl/PF 10 MG in Sodium Chloride 0.9% 50 ML IVPB SCH (02:15)
[2018-12-28] MEDS ORDERED: Bacteriostatic Water 30 ML VIAL IVP SCH (02:15)
[2018-12-28] MEDS ORDERED: CYTARABINE IVPB SCH (02:15)
[2018-12-28] MEDS ORDERED: Sodium Chloride 0.9% 20 ML ONE (12:46)
[2018-12-28 13:06] VITALS: BP 131/75; TEMP 99
== END 2018-12-28 15:33 | disposition home or self-care (01) ==
LOC: ONC/OP 00:16
PROVIDERS: ATTEND Internal Medicine Hematology & Oncology
DX: Z51.11 Encounter for antineoplastic chemotherapy (principal); C96.0 Multifocal and multisystemic (disseminated) Langerhans-cell histiocytosis; D70.8 Other neutropenia
CPT/HCPCS: 96375; 96413; 96415; J1642; J2405; J2920; J7050; J9100

== ENCOUNTER 2018-12-29 12:52 | Day surgery (SDC) | payer OTHER ==
[~2018-12-29 12:52] MED LIST changes: -Bacteriostatic Water 30 ML VIAL IVP SCH; -Sodium Chloride 0.9% 20 ML ONE; +Sodium Chloride 0.9% 30 ML ONE
[2018-12-29 15:10] VITALS: BP 144/67; TEMP 98.8
== END 2018-12-29 15:26 | disposition home or self-care (01) ==
LOC: ONC/OP 12:52
PROVIDERS: ATTEND Internal Medicine Hematology & Oncology
DX: Z51.11 Encounter for antineoplastic chemotherapy (principal); C96.0 Multifocal and multisystemic (disseminated) Langerhans-cell histiocytosis; D70.8 Other neutropenia
CPT/HCPCS: 96375; 96413; 96415; J1642; J2405; J2920; J7050; J9100

== ENCOUNTER 2018-12-30 13:02 | Day surgery (SDC) | payer OTHER ==
[~2018-12-30 13:02] MED LIST changes: +Bacteriostatic Water 30 ML VIAL FS PRN; -Sodium Chloride 0.9% 30 ML ONE
[2018-12-30] MEDS ORDERED: Sodium Chloride 0.9% 20 ML ONE (13:08)
[2018-12-30 16:05] VITALS: BP 133/69; TEMP 98.8
== END 2018-12-30 16:07 | disposition home or self-care (01) ==
LOC: ONC/OP 13:02
PROVIDERS: ATTEND Internal Medicine Hematology & Oncology
DX: Z51.11 Encounter for antineoplastic chemotherapy (principal); C96.0 Multifocal and multisystemic (disseminated) Langerhans-cell histiocytosis; D70.8 Other neutropenia
CPT/HCPCS: 96375; 96413; 96415; J1642; J2405; J2920; J7050; J9100

== ENCOUNTER → 2018-12-31 | Day surgery (SDC) | payer OTHER ==
[~2018-12-31] MED LIST changes: -Bacteriostatic Water 30 ML VIAL FS PRN; -CYTARABINE IVPB SCH; -Ondansetron HCl/PF 10 MG in Sodium Chloride 0.9% 50 ML IVPB SCH; +PEGFILGRASTIM-JMDB 6 MG/0.6 ML SYRINGE SQ SCH; -SODIUM CHLORIDE 0.9% IVPB SCH; -methylPREDNISolone Sod Succ 40 MG VIAL IVP SCH
[2018-12-31 11:34] VITALS: TEMP 99.1
[2018-12-31 11:35] VITALS: BP 111/63
== END ==
LOC: ONC/OP 11:10
PROVIDERS: ATTEND Internal Medicine Hematology & Oncology
DX: Z51.11 Encounter for antineoplastic chemotherapy (principal); Z79.2 Long term (current) use of antibiotics; Z79.899 Other long term (current) drug therapy
CPT/HCPCS: 96374; Q5108

== ENCOUNTER 2019-01-17 12:13 | Observation (INO) | payer MEDICAID, OTHER, SELFPAY ==
[2019-01-17 13:08] LABS: #Eosinphils 0.2 thou/uL (0.0-0.7); #Lymphocytes 2.3 thou/uL (1.20-3.40); #Monocytes 0.4 thou/uL (0.11-0.59); #Neutrophils 4.9 thou/uL (1.40-6.50); %Basophils 0.1 % (0.0-1.0); %Eosinophils 2.5 % (0.0-10.0); %Lymphocytes 29.4 % (21.0-51.0); %Monocytes 5.3 % (0.0-10.0); %Neutrophils 62.7 % (42.0-75.0); Hemoglobin 11.1 g/dL (14.0-18.0); Mean Corpuscular HGB CONC 31.9 g/dL (32.0-36.0); Mean Corpuscular Hemoglobin 26.7 pg (27.0-31.0); Mean Corpuscular Volume 83.6 fL (78.0-98.0); Mean Platelet Volume 7.8 fL (7.4-10.4); Platelet Count 390 thou/uL (130-400); RBC Distribution Width 17.9 % (11.5-14.5); Red Blood Cell (RBC) Count 4.16 mill/uL (4.70-6.10); White Blood Cell (WBC) Count 7.8 thou/uL (4.8-10.8)
[2019-01-17 13:31] LABS: ALT (SGPT) 30 U/L (8-55); AST (SGOT) 22 U/L (5-34); Alkaline Phosphatase 132 U/L (40-150); Anion Gap 17 mmol/L (10-20); BUN (Urea Nitrogen) 11 mg/dL (8.9-20.6); Bilirubin, Total 0.3 mg/dL (0.2-1.2); Calc. Creatinine Clearance 0 mL/min (70-130); Calcium 9.7 mg/dL (7.8-10.44); Carbon Dioxide 25 mmol/L (22-29); Chloride 95 mmol/L (98-107); Estimated GFR-MDRD 52; Globulin 4.4 g/dL (2.4-3.5); Magnesium 2.2 mg/dL (1.6-2.6); Phosphorus 3.3 mg/dL (2.3-4.7); Potassium 3.8 mmol/L (3.5-5.1); Protein, Total 8.4 g/dL (6.0-8.3); Sodium 133 mmol/L (136-145)
[2019-01-17 13:33] LABS: Glucose 671 mg/dL (70-105)
[2019-01-17 13:35] LABS: Base Excess-Venous 2.5 mmol/L (-2.0 to 3.0); Bicarbonate (HCO3v) 28.5 mmol/L (22.0-28.0); CO2 Tension (PvCO2) 49.4 mmHg (40.0-50.0); Calcium, Ionized 1.09 mmol/L (See Comments:); Chloride 99 mmol/L (98-107); Hemoglobin - Calc 11.5 g/dL (14.0-18.0); O2 Tension (PvO2) 15.5 mmHg (35.0-45.0); Potassium 4.3 mmol/L (3.5-5.1); Sodium 134 mmol/L (138-145); pH (Venous) 7.369 (7.320-7.430)
[2019-01-17 13:47] LABS: Bilirubin Negative (Negative); Blood, Urine Negative (Negative); Clarity CLEAR (Clear); Glucose, Urine (Dipstick) >=1000 mg/dL (Negative); Leukocyte Negative (Negative); Nitrite Negative (Negative); Protein, Urine (Dipstick) Negative (Neg-Trace); Specific Gravity, Urine 1.017 (1.002-1.036); Urobilinogen 0.2 mg/dL (0.2-1.0)
[2019-01-17] MEDS ORDERED: Insulin Regular 300 UNITS/3 ML VIAL ONE (16:45)
[2019-01-17] MEDS ORDERED: Acetaminophen 325 MG TAB PO PRN (21:06)
[2019-01-17] MEDS ORDERED: HYDROcodone/Acetaminophen 5/325 mg Tablet PO PRN (21:06)
[2019-01-17] MEDS ORDERED: Zolpidem Tartrate 5 MG TAB PO PRN (21:06)
[2019-01-17] MEDS ORDERED: Ondansetron PF 4 MG/2 ML Vial IVP PRN (21:06)
[2019-01-17] MEDS ORDERED: Dextrose 5% in Water 1,000 ML IV PRN (21:15)
[2019-01-17] MEDS ORDERED: Dextrose 50% Abboject 50 ML SYRINGE SLOW IVP PRN (21:15)
--- NOTE | 2019-01-17 21:17 | PDOC.EVN ---
Event Note - Event Note Event Note: H&P [id number]
[2019-01-17] MEDS: HumaLOG 300 UNITS/3 ML VIAL SC PRN (22:24)
[2019-01-17] MEDS: Insulin Glargine 10 UNITS in Pre-Filled Syringe 1 EACH SC SCH (22:25)
[2019-01-17] MEDS: Sodium Chloride 0.9% 1,000 ML IV SCH (22:28)
[2019-01-17 23:38] LABS: Troponin I Less than 0.010 ng/mL (< 0.028)
[2019-01-18 00:23] VITALS: BMI 30.8
--- NOTE | 2019-01-18 02:26 | HP ---
CHIEF COMPLAINT: High blood sugars. HISTORY OF PRESENT ILLNESS: This is a 48-year-old male, admitted to the hospital with complaints of high blood sugar. The patient states that he uses glipizide at home, however, was feeling not so well and a little nauseous, so he went to the local ER and was found to have a blood sugar of above 500. At point of time of reading, POC check was 546 and then the basic metabolic panel glucose reading was 671. The patient stated that he uses glipizide 5 mg at home. Denies any other diabetic medications. Of note, the patient does take medications for pain, namely being ibuprofen as well as two inhalers were also found in the prescription package. The patient states that he does not have any insurance, so he is not able to afford majority of his medications. He takes the medications he gets which are low of cost and sees a local outpatient doctor for his medical management. Cannot recall when the last time he saw the physician was. The patient states that otherwise he is feeling weak. Has also noted some lower extremity swelling. Denies any chest pain or chest discomfort. Does admit to dyspnea on exertion. Does not admit to any other complaints or symptoms. No other associated symptoms or complaints noted. The patient was seen and examined in the ER. No family at bedside. All questions answered. REVIEW OF SYSTEMS: All systems reviewed. Pertinent positives in HPI, otherwise negative. ALLERGIES: NO KNOWN DRUG ALLERGIES. HOME MEDICATIONS: See MAR. PAST MEDICAL HISTORY: Diabetes, hypertension, as well as mild asthma. FAMILY HISTORY: Positive for diabetes and hypertension. SOCIAL HISTORY: Social drinker. Social smoker. PHYSICAL EXAMINATION: VITAL SIGNS: Blood pressure was 138/88, respiratory rate of 18, temperature of 98, O2 saturation 100% on room air. GENERAL: The patient is lying in bed, asleep, in no acute discomfort. At point in time of evaluation, the patient was woken up. HEENT: Pupils are equal, round, and reactive to light and accommodation. Extraocular muscles are intact. Oral cavity is moist and pink. NECK: Nontender, mobile, thyroid appreciated. PULMONARY: Clear to auscultation bilaterally. No increase in AP diameter. CARDIOVASCULAR: 1/6 systolic ejection murmur appreciated. S1 and S2. No rubs are noted. Murmur noted as stated earlier. ABDOMEN: Rotund. Positive bowel sounds. Nontender. EXTREMITIES: Trace edema and 2+ peripheral pulses noted. NEUROLOGICAL: Cranial nerves 2 through 12 are intact. No loss of motor or sensory function. LABORATORY DATA: CBC shows normal except for a hemoglobin of 11.1. Basic metabolic panel shows pseudohyponatremia, creatinine of 1.46, glucose of 671. Urinalysis shows glucosuria. Chest x-ray shows no acute cardiopulmonary process. ASSESSMENT: 1. Hyperglycemia. 2. Anemia. 3. Acute kidney injury versus chronic kidney disease. 4. Glucosuria. 5. Hyperlipidemia. 6. Obesity. PLAN: The patient advised to lose weight pretty aggressively. We will start the patient on aspirin, sliding scale insulin. Check A1c. Likely would benefit from doubling up on his dose of glipizide at home. Consider also starting metformin. The patient states that he is unable to know if he can afford to medications or not given that he has no capabilities of paying for the drugs. The patient at this point in time can be admitted to internal medicine team safely managed and can probably discharge in the next 24 to 48 hours depending on blood sugars. The patient wishes to remain a full code during the stay in the hospital. Case and plan were discussed with the patient at length. He understood and agreed with this plan. Once again, no family at bedside. Job ID: [id number]
[2019-01-18] MEDS: Sodium Chloride 0.9% 1,000 ML IV SCH ×2 (03:33→21:46)
[2019-01-18] MEDS: HumaLOG 300 UNITS/3 ML VIAL SC PRN ×4 (06:20→21:47)
[2019-01-18 07:47] LABS: #Basophils 0.1 thou/uL (0.0-0.2); #Eosinphils 0.2 thou/uL (0.0-0.7); #Lymphocytes 2.1 thou/uL (1.20-3.40); #Monocytes 0.5 thou/uL (0.11-0.59); #Neutrophils 3.7 thou/uL (1.40-6.50); %Basophils 0.8 % (0.0-1.0); %Eosinophils 2.9 % (0.0-10.0); %Monocytes 6.9 % (0.0-10.0); %Neutrophils 56.4 % (42.0-75.0); Mean Corpuscular HGB CONC 31.8 g/dL (32.0-36.0); Mean Corpuscular Hemoglobin 26.6 pg (27.0-31.0); Mean Corpuscular Volume 83.7 fL (78.0-98.0); Mean Platelet Volume 8.4 fL (7.4-10.4); Platelet Count 315 thou/uL (130-400); RBC Distribution Width 17.6 % (11.5-14.5); Red Blood Cell (RBC) Count 3.77 mill/uL (4.70-6.10); White Blood Cell (WBC) Count 6.5 thou/uL (4.8-10.8)
[2019-01-18 07:56] LABS: Hemoglobin A1c 9.9 % (4.0-6.0)
[2019-01-18 08:03] LABS: Anion Gap 13 mmol/L (10-20); BUN (Urea Nitrogen) 9 mg/dL (8.9-20.6); Calc. Creatinine Clearance 123 mL/min (70-130); Calcium 8.7 mg/dL (7.8-10.44); Carbon Dioxide 23 mmol/L (22-29); Chloride 109 mmol/L (98-107); Estimated GFR-MDRD 73; Glucose 376 mg/dL (70-105); Potassium 3.5 mmol/L (3.5-5.1); Sodium 141 mmol/L (136-145)
[2019-01-18 08:08] LABS: Troponin I Less than 0.010 ng/mL (< 0.028)
[2019-01-18] MEDS: Heparin 5,000 UNITS/ML VIAL SC SCH ×2 (12:19→21:46)
[2019-01-18] MEDS ORDERED: glipiZIDE 10 MG TAB PO SCH (17:45)
--- NOTE | 2019-01-18 17:48 | PDOC.PN ---
- Subjective Encounter Start Date: 01/18/19 Encounter Start Time: 16:36 Subjective: Patient resting comfortably. No complaints at this time. -: Denies having any n/v. No abdominal pain. No cp or sob. -: States he has been fully asymptomatic with high glucose. Saw his PCP on Wednesday and advised to increase his glipizide from 5 mg OD to 10 mg OD. He states he has never been on Metformin or any other oral agents. Denies having any abdominal pain. No headaches or dizziness. Reports normal bowel movements. No urinary symptoms. - Objective Resuscitation Status - Order Detail: 01/17/19 21:06 Resuscitation Status Routine Resuscitation Status: FULL: Full Resuscitation Discussed with: patient Vital Signs & Weight: Vital Signs (12 hours) Temp Pulse Resp BP BP Pulse Ox 01/18/19 15:27 98.6 F 86 18 122/67 95 01/18/19 12:06 97.7 F 92 20 124/60 01/18/19 07:58 98.9 F 88 20 119/68 95 Weight Admit Weight 227 lb Weight 227 lb 1.218 oz I&O: 01/17/19 01/18/19 01/19/19 06:59 06:59 06:59 Intake Total 1058 Balance 1058 Result Diagrams: 01/18/19 07:08 01/18/19 07:08 Additional Labs: Accuchecks 01/18/19 01/18/19 01/18/19 16:29 10:58 06:21 POC Glucose 429 H 444 H 342 H 01/17/19 01/17/19 01/17/19 20:51 17:42 12:40 POC Glucose 390 H 402 H Greater than 550 H* 01/17/19 12:39 POC Glucose Greater than 550 H* Phys Exam - Physical Examination Constitutional: NAD HEENT: PERRLA, oral pharynx no lesions Neck: supple, full ROM Respiratory: no wheezing, no rales, no rhonchi, clear to auscultation bilateral Cardiovascular: RRR Gastrointestinal: soft, non-tender, no distention, positive bowel sounds Musculoskeletal: no edema Neurological: normal sensation, moves all 4 limbs Psychiatric: normal affect, A&O x 3 Skin: no rash Dx/Plan (1) Hyperglycemia Code(s): R73.9 - HYPERGLYCEMIA, UNSPECIFIED Status: Acute (2) DM type 2 (diabetes mellitus, type 2) Status: Chronic Qualifiers: Diabetes mellitus senior care insulin use: without senior care use Diabetes mellitus complication status: with hyperglycemia Qualified Code(s): E11.65 - Type 2 diabetes mellitus with hyperglycemia Plan: Resume home meds. On Glucotrol, increased to 10 mg PO daily recently. Add Metformin 1000 mg PO BID. Monitor glucose and continue ISS. Comment: diagnosed 03/2018 (3) Obesity (BMI 30.0-34.9) Code(s): E66.9 - OBESITY, UNSPECIFIED Status: Chronic - Plan cont current plan of care Patients case discussed with Dr. Razo who agrees with plan as above. * .
[2019-01-18] MEDS: Insulin Glargine 10 UNITS in Pre-Filled Syringe 1 EACH SC SCH (21:46)
[2019-01-18] MEDS ORDERED: HumaLOG 300 UNITS/3 ML VIAL SC PRN (22:22)
[2019-01-19 07:10] LABS: #Eosinphils 0.2 thou/uL (0.0-0.7); #Lymphocytes 2.1 thou/uL (1.20-3.40); #Monocytes 0.3 thou/uL (0.11-0.59); #Neutrophils 2.2 thou/uL (1.40-6.50); %Basophils 0.3 % (0.0-1.0); %Eosinophils 3.2 % (0.0-10.0); %Lymphocytes 43.7 % (21.0-51.0); %Monocytes 6.4 % (0.0-10.0); %Neutrophils 46.4 % (42.0-75.0); Hemoglobin 9.9 g/dL (14.0-18.0); Mean Corpuscular HGB CONC 31.6 g/dL (32.0-36.0); Mean Corpuscular Hemoglobin 27.3 pg (27.0-31.0); Mean Corpuscular Volume 86.4 fL (78.0-98.0); Mean Platelet Volume 8.3 fL (7.4-10.4); Platelet Count 255 thou/uL (130-400); RBC Distribution Width 17.6 % (11.5-14.5); Red Blood Cell (RBC) Count 3.62 mill/uL (4.70-6.10); White Blood Cell (WBC) Count 4.8 thou/uL (4.8-10.8)
[2019-01-19 07:11] LABS: Anion Gap 14 mmol/L (10-20); BUN (Urea Nitrogen) 6 mg/dL (8.9-20.6); Calc. Creatinine Clearance 116 mL/min (70-130); Calcium 8.7 mg/dL (7.8-10.44); Carbon Dioxide 23 mmol/L (22-29); Chloride 110 mmol/L (98-107); Estimated GFR-MDRD 68; Glucose 360 mg/dL (70-105); Potassium 3.9 mmol/L (3.5-5.1); Sodium 143 mmol/L (136-145)
[2019-01-19] MEDS ORDERED: glipiZIDE 10 MG TAB PO SCH (07:30)
[2019-01-19] MEDS: metFORMIN 500 MG TAB PO SCH ×2 (07:55→16:33)
[2019-01-19] MEDS ORDERED: glipiZIDE 5 MG TAB PO SCH (09:00)
[2019-01-19] MEDS: Heparin 5,000 UNITS/ML VIAL SC SCH (10:38)
[2019-01-19] MEDS: Sodium Chloride 0.9% 1,000 ML IV SCH (10:40)
[2019-01-19] MEDS: HumuLIN 70/30 (300 UNITS/3 ML VIAL) SC SCH ×2 (12:08→16:25)
[2019-01-19 16:41] VITALS: BP 139/73; TEMP 98.1
--- NOTE | 2019-01-20 01:59 | DIS ---
DATE OF ADMISSION: 01/17/2019 DATE OF DISCHARGE: 01/19/2019 PRIMARY CARE PHYSICIAN: Thad Fajardo. DISCHARGE DIAGNOSES: 1. Hyperglycemia due to uncontrolled diabetes mellitus. 2. Diabetes mellitus type 2. 3. Obesity with a BMI of 30.8. DISCHARGE MEDICATION: As follows: Metformin 1000 mg p.o. b.i.d. and Novolin 70/30 15 units subcu b.i.d. Resume home medications. [facility] has been helping the patient to get his insulin and his metformin. They will also help him with getting a glucometer and glucose test supplies. PROCEDURES DONE IN THE HOSPITAL: Transthoracic echocardiogram, which is unremarkable. HISTORY OF PRESENTING ILLNESS: Mr. Mohan is a 48-year-old male with known history of diabetes, who does not take his medication because of reported financial reason, who presented to the emergency room with high blood sugar of over 500. He reports that his glipizide that he uses at 5 mg at home was recently increased to 10 mg, but is sketchy if he was actually taking it. In the emergency room, his blood sugar was 671 without any evidence of ketoacidosis, so he was admitted to medical floor for further evaluation and care. He had pseudohyponatremia because of the high sugar as well. Please see admission history and physical dictated by Dr. Gibbons 01/17/2019, for further details. HOSPITAL COURSE: The patient's blood sugars were managed with insulin and his hemoglobin A1c was checked and was elevated to 9.9. At this time, his medications were adjusted. He was started on metformin and insulin and was taken off his glipizide. His blood sugar remained elevated but under much better control in the low 300 range. Diabetic education was provided to him along with a dietitian teaching. He is being taught how to take insulin by himself. I have discussed his care with his daughter over the phone as the patient is largely Arabic-speaking and exhibits poor insight into the disease process. They are being educated about the need for a strict diabetic diet, weight loss, and medication compliance and followup with primary care physician. They verbalized understanding. He will be discharged once his medications are delivered through [facility]. Job ID: [id number]
== END 2019-01-19 17:38 | disposition home or self-care (01) ==
LOC: ERS 12:13 → ERHOLD 18:00 → 3SE 20:33
PROVIDERS: ADMIT Family Medicine; ATTEND Family Medicine
DX: E11.65 Type 2 diabetes mellitus with hyperglycemia (principal); I10 Essential (primary) hypertension; J45.909 Unspecified asthma, uncomplicated; F17.200 Nicotine dependence, unspecified, uncomplicated; D64.9 Anemia, unspecified; E78.5 Hyperlipidemia, unspecified; E66.9 Obesity, unspecified; Z68.30 Body mass index [BMI] 30.0-30.9, adult; Z79.84 Long term (current) use of oral hypoglycemic drugs; Z79.899 Other long term (current) drug therapy; Z91.14 Patient's other noncompliance with medication regimen
CPT/HCPCS: 36415; 36416; 80048; 80053; 81003; 82010; 82330; 82803; 83036; 83735; 83880; 84100; 84484; 85025; 90471; 90686; 93306; 96361; 96374; G0008; G0378; J1644; J1815; J1825

== ENCOUNTER 2019-01-23 11:11 | Day surgery (SDC) | payer OTHER ==
[~2019-01-23 11:11] MED LIST changes: +CYTARABINE IVPB SCH; +Ondansetron 2MG/ML MDV 10 MG in Sodium Chloride 0.9% 50 ML IVPB SCH; +Ondansetron HCl/PF 10 MG in Sodium Chloride 0.9% 50 ML IVPB SCH; -PEGFILGRASTIM-JMDB 6 MG/0.6 ML SYRINGE SQ SCH; +SODIUM CHLORIDE 0.9% IVPB SCH; +Sodium Chloride 0.9% 20 ML ONE; +methylPREDNISolone Sod Succ 40 MG VIAL IVP SCH
[2019-01-23 11:27] VITALS: BP 126/73; TEMP 98.1
== END 2019-01-23 14:18 | disposition home or self-care (01) ==
LOC: ONC/OP 11:11
PROVIDERS: ATTEND Internal Medicine Hematology & Oncology
DX: Z51.11 Encounter for antineoplastic chemotherapy (principal); C96.0 Multifocal and multisystemic (disseminated) Langerhans-cell histiocytosis; Z79.4 Long term (current) use of insulin; Z79.899 Other long term (current) drug therapy
CPT/HCPCS: 96375; 96413; 96415; J1642; J2405; J2920; J7050; J9100

== ENCOUNTER 2019-01-24 08:50 | Day surgery (SDC) | payer OTHER ==
[~2019-01-24 08:50] MED LIST changes: -Ondansetron HCl/PF 10 MG in Sodium Chloride 0.9% 50 ML IVPB SCH; -Sodium Chloride 0.9% 20 ML ONE
[2019-01-24 09:10] VITALS: BP 123/72; TEMP 98.6
[2019-01-24] MEDS ORDERED: Sodium Chloride 0.9% 30 ML ONE (09:12)
== END 2019-01-24 12:26 | disposition home or self-care (01) ==
LOC: ONC/OP 08:50
PROVIDERS: ATTEND Internal Medicine Hematology & Oncology
DX: Z51.11 Encounter for antineoplastic chemotherapy (principal); C96.0 Multifocal and multisystemic (disseminated) Langerhans-cell histiocytosis; D70.8 Other neutropenia
CPT/HCPCS: 96375; 96413; 96415; J1642; J2405; J2920; J7050; J9100

== ENCOUNTER 2019-01-25 12:50 | Day surgery (SDC) | payer OTHER ==
[2019-01-25] MEDS ORDERED: Sodium Chloride 0.9% 20 ML ONE (12:53)
[2019-01-25 13:08] VITALS: BP 114/71; TEMP 98.3
== END 2019-01-25 15:49 | disposition home or self-care (01) ==
LOC: ONC/OP 12:50
PROVIDERS: ATTEND Internal Medicine Hematology & Oncology
DX: Z51.11 Encounter for antineoplastic chemotherapy (principal); C96.0 Multifocal and multisystemic (disseminated) Langerhans-cell histiocytosis; Z79.4 Long term (current) use of insulin; Z79.899 Other long term (current) drug therapy
CPT/HCPCS: 96375; 96413; 96415; J1642; J2405; J2920; J7050; J9100

== ENCOUNTER 2019-01-26 09:57 | Day surgery (SDC) | payer OTHER ==
[~2019-01-26 09:57] MED LIST changes: +Ondansetron HCl/PF 10 MG in Sodium Chloride 0.9% 50 ML IVPB SCH
[2019-01-26] MEDS ORDERED: methylPREDNISolone Sod Succ 40 MG VIAL IVP SCH (10:00)
[2019-01-26] MEDS ORDERED: CYTARABINE IVPB SCH (10:00)
[2019-01-26] MEDS ORDERED: SODIUM CHLORIDE 0.9% IVPB SCH (10:00)
[2019-01-26] MEDS ORDERED: Sodium Chloride 0.9% 30 ML ONE (10:20)
[2019-01-26 10:28] VITALS: BP 129/77; TEMP 97.7
== END 2019-01-26 12:58 | disposition home or self-care (01) ==
LOC: ONC/OP 09:57
PROVIDERS: ATTEND Internal Medicine Hematology & Oncology
DX: Z51.11 Encounter for antineoplastic chemotherapy (principal); C96.0 Multifocal and multisystemic (disseminated) Langerhans-cell histiocytosis; Z79.4 Long term (current) use of insulin; Z79.899 Other long term (current) drug therapy
CPT/HCPCS: 96375; 96413; 96415; J1642; J2405; J2920; J7050; J9100

== ENCOUNTER 2019-01-27 13:02 | Day surgery (SDC) | payer OTHER ==
[~2019-01-27 13:02] MED LIST changes: +Ondansetron 2MG/ML MDV 10 MG in Sodium Chloride 0.9% 50 ML IVP SCH; -Ondansetron 2MG/ML MDV 10 MG in Sodium Chloride 0.9% 50 ML IVPB SCH; -Ondansetron HCl/PF 10 MG in Sodium Chloride 0.9% 50 ML IVPB SCH
[2019-01-27] MEDS ORDERED: Sodium Chloride 0.9% 30 ML ONE (13:18)
[2019-01-27 14:04] VITALS: BP 116/64; TEMP 98.4
== END 2019-01-27 16:52 | disposition home or self-care (01) ==
LOC: ONC/OP 13:02
PROVIDERS: ATTEND Internal Medicine Hematology & Oncology
DX: Z51.11 Encounter for antineoplastic chemotherapy (principal); C96.0 Multifocal and multisystemic (disseminated) Langerhans-cell histiocytosis; D70.8 Other neutropenia
CPT/HCPCS: 96375; 96413; 96415; J1642; J2405; J2920; J7050; J9100

== ENCOUNTER 2019-01-28 12:25 | Day surgery (SDC) | payer OTHER ==
[~2019-01-28 12:25] MED LIST changes: -CYTARABINE IVPB SCH; -Ondansetron 2MG/ML MDV 10 MG in Sodium Chloride 0.9% 50 ML IVP SCH; +PEGFILGRASTIM-JMDB 6 MG/0.6 ML SYRINGE SQ SCH; -SODIUM CHLORIDE 0.9% IVPB SCH; -methylPREDNISolone Sod Succ 40 MG VIAL IVP SCH
== END 2019-01-28 12:46 | disposition home or self-care (01) ==
LOC: ONC/OP 12:25
PROVIDERS: ATTEND Internal Medicine Hematology & Oncology
DX: Z29.8 Encounter for other specified prophylactic measures (principal); C96.0 Multifocal and multisystemic (disseminated) Langerhans-cell histiocytosis; D70.8 Other neutropenia; Z79.4 Long term (current) use of insulin; Z79.899 Other long term (current) drug therapy
CPT/HCPCS: 96372; 96375; 96413; 96415; J1642; J2405; J2920; J7050; J9100; Q5108

== ENCOUNTER 2019-02-16 08:25 | Outpatient (CLI) | payer OTHER ==
--- NOTE | 2019-02-16 11:08 | PET ---
EXAM: PET/CT HISTORY: Langerhans cells histiocytosis TECHNIQUE: PET scanning with CT attenuation correction was performed from the base of the brain to the proximal thighs following the intravenous administration of 12.7 millicuries [id number]. COMPARISON: PET/CT dated November 22, 2018 CORRELATION: None FINDINGS: Bilateral distribution:The biodistribution for the exam appears acceptable. Head and neck: There is appropriate background activity within the brain. There is a focus of hyperme tabolic activity involving the right paraspinal musculature in the upper neck which is likely related to muscular contraction. Increase in hypermetabolic activity is again seen at the level of pa latine tonsils which is nonspecific. No additional hypermetabolic lymph node or mass is identified. Thorax: There is worsening hypermetabolic paraspinal nodules present involving the right hemithorax. There are worsening hypermetabolic nodules involving the posterior mediastinum. The largest paraspinal nodules seen at the T4 vertebral level right paraspinal soft tissues measures 2.61 cm with a peak SUV activity 9.5 and a mean activity 7.94. The peak activity associated with this lesion on the prior exam was 5.04 with a mean activity of 4.15. A superior mediastinal hypermetabolic focus chan suring 1.4 cm has a peak SUV activity of 6.35 and a mean activity of 4.66 whereas previously it had a peak activity of 2.61 and a mean activity 1.95. An additional index nodule within the lower posteri or mediastinum, adjacent to the distal esophagus, measures 1.1 cm with a peak activity of 6.28 and a mean activity of 5.18. This previously had a peak activity of 3.12 and mean activity 2.2. The lesio ns are roughly stable in size. No new lesions are identified. Small nodules are again seen within the extrapleural space overlying the right lateral hemithorax as well as within the anterior mediasti num. Chronic lung changes are again noted including cystic and interstitial chronic lung changes. This is in an upper lobe predominant distribution which is just distribution often seen with Langerha ns' cells histiocytosis. Abdomen and pelvis: There is expected background activity within the GI and systems. No hypermetab olic mass, lymphadenopathy or ascites is present. There is a prominent fatty infiltration of the liver which is stable. Osseous structures and skin: Mild activity is seen along the superior aspect of the midline gluteal c left which is nonspecific. This peak activity measures 3.86 and 3.25 where previously it measured 5.59 and mean value of 3.86. No hypermetabolic osseous lesion is identified. IMPRESSION: Worsening hypermetabolic uptake involving the paraspinal and mediastinal soft tissue nodules thought to be related to patient's history of LCH. Persistent area of hypermetabolic uptake involving the palatine tonsils. This remains prominent. Path ologic involvement of the palatine tonsils cannot be excluded. Mild skin activity seen along the superior aspect of the midline gluteal cleft. This may reflect acti vity related to inflammatory changes from skin lesion, such as a subcutaneous cyst, within this location. Recommend correlation with direct visualization. Prominent area of activity seen within the right paraspinal musculature is likely related to muscular contraction.
== END 2019-02-16 08:26 | disposition home or self-care (01) ==
LOC: PET 08:25
PROVIDERS: ATTEND Internal Medicine Hematology & Oncology
DX: C96.0 Multifocal and multisystemic (disseminated) Langerhans-cell histiocytosis (principal)
CPT/HCPCS: 78815; A9552

== ENCOUNTER 2019-02-20 11:05 | Day surgery (SDC) | payer SELFPAY ==
[~2019-02-20 11:05] MED LIST changes: +CYTARABINE IVPB SCH; +Ondansetron 2MG/ML MDV 10 MG in Sodium Chloride 0.9% 50 ML IVP SCH; -PEGFILGRASTIM-JMDB 6 MG/0.6 ML SYRINGE SQ SCH; +SODIUM CHLORIDE 0.9% IVPB SCH; +methylPREDNISolone Sod Succ 40 MG VIAL IVP SCH
[2019-02-20] MEDS ORDERED: Sodium Chloride 0.9% 20 ML ONE (11:20)
[2019-02-20 11:46] VITALS: BP 122/70; TEMP 97.6
== END 2019-02-20 16:21 | disposition home or self-care (01) ==
LOC: ONC/OP 11:05
PROVIDERS: ATTEND Internal Medicine Hematology & Oncology
DX: Z51.11 Encounter for antineoplastic chemotherapy (principal); C96.0 Multifocal and multisystemic (disseminated) Langerhans-cell histiocytosis; D70.8 Other neutropenia
CPT/HCPCS: 96375; 96413; 96415; J1642; J2405; J2920; J7050; J9100

== ENCOUNTER 2019-02-21 11:49 | Day surgery (SDC) | payer SELFPAY ==
[~2019-02-21 11:49] MED LIST changes: +Bacteriostatic Water 30 ML VIAL FS PRN
[2019-02-21] MEDS ORDERED: Sodium Chloride 0.9% 30 ML ONE (12:04)
[2019-02-21 14:40] VITALS: BP 118/67; TEMP 97.5
== END 2019-02-21 15:11 | disposition home or self-care (01) ==
LOC: ONC/OP 11:49
PROVIDERS: ATTEND Internal Medicine Hematology & Oncology
DX: Z51.11 Encounter for antineoplastic chemotherapy (principal); C96.0 Multifocal and multisystemic (disseminated) Langerhans-cell histiocytosis; D70.8 Other neutropenia
CPT/HCPCS: 96375; 96413; 96415; J1642; J2405; J2920; J7050; J9100

== ENCOUNTER 2019-02-22 09:51 | Day surgery (SDC) | payer OTHER ==
[~2019-02-22 09:51] MED LIST changes: -Bacteriostatic Water 30 ML VIAL FS PRN; -Ondansetron 2MG/ML MDV 10 MG in Sodium Chloride 0.9% 50 ML IVP SCH; +Ondansetron HCl/PF 10 MG in Sodium Chloride 0.9% 50 ML IVPB SCH
[2019-02-22] MEDS ORDERED: Sodium Chloride 0.9% 20 ML ONE (09:54)
[2019-02-22 10:31] VITALS: BP 131/66; TEMP 98.4
[2019-02-23] MEDS ORDERED: Bacteriostatic Water 30 ML VIAL FS PRN (01:59)
== END 2019-02-22 12:57 | disposition home or self-care (01) ==
LOC: ONC/OP 09:51
PROVIDERS: ATTEND Internal Medicine Hematology & Oncology
DX: Z51.11 Encounter for antineoplastic chemotherapy (principal); C96.0 Multifocal and multisystemic (disseminated) Langerhans-cell histiocytosis; D70.8 Other neutropenia
CPT/HCPCS: 96375; 96413; 96415; J1642; J2405; J2920; J7050; J9100

== ENCOUNTER 2019-02-23 11:01 | Day surgery (SDC) | payer OTHER, SELFPAY ==
[~2019-02-23 11:01] MED LIST changes: +Bacteriostatic Water 30 ML VIAL FS PRN
[2019-02-23] MEDS ORDERED: Sodium Chloride 0.9% 0 ML ONE (11:17)
[2019-02-23 12:01] VITALS: BP 130/70; TEMP 97.6
[2019-02-23] MEDS ORDERED: Sodium Chloride 0.9% 30 ML ONE (12:01)
== END 2019-02-23 14:23 | disposition home or self-care (01) ==
LOC: ONC/OP 11:01
PROVIDERS: ATTEND Internal Medicine Hematology & Oncology
DX: Z51.11 Encounter for antineoplastic chemotherapy (principal); C96.0 Multifocal and multisystemic (disseminated) Langerhans-cell histiocytosis; D70.8 Other neutropenia
CPT/HCPCS: 96375; 96413; 96415; J1642; J2405; J2920; J3490; J7050; J9100

== ENCOUNTER 2019-02-24 11:58 | Day surgery (SDC) | payer SELFPAY ==
[~2019-02-24 11:58] MED LIST changes: -Bacteriostatic Water 30 ML VIAL FS PRN; +Ondansetron 2MG/ML MDV 10 MG in Sodium Chloride 0.9% 50 ML IVP SCH; -Ondansetron HCl/PF 10 MG in Sodium Chloride 0.9% 50 ML IVPB SCH
[2019-02-24] MEDS ORDERED: Sodium Chloride 0.9% 20 ML ONE (12:01)
[2019-02-24 12:13] VITALS: BP 122/65; TEMP 98.4
== END 2019-02-24 16:05 | disposition home or self-care (01) ==
LOC: ONC/OP 11:58
PROVIDERS: ATTEND Internal Medicine Hematology & Oncology
DX: Z51.11 Encounter for antineoplastic chemotherapy (principal); C96.0 Multifocal and multisystemic (disseminated) Langerhans-cell histiocytosis; D70.8 Other neutropenia
CPT/HCPCS: 96375; 96413; 96415; J1642; J2405; J2920; J7050; J9100

== ENCOUNTER → 2019-02-25 | Day surgery (SDC) | payer SELFPAY ==
[~2019-02-25] MED LIST changes: -CYTARABINE IVPB SCH; -Ondansetron 2MG/ML MDV 10 MG in Sodium Chloride 0.9% 50 ML IVP SCH; +PEGFILGRASTIM-JMDB 6 MG/0.6 ML SYRINGE SQ SCH; -SODIUM CHLORIDE 0.9% IVPB SCH; -methylPREDNISolone Sod Succ 40 MG VIAL IVP SCH
== END ==
LOC: ONC/OP 11:31
PROVIDERS: ATTEND Internal Medicine Hematology & Oncology
DX: Z51.11 Encounter for antineoplastic chemotherapy (principal); C96.0 Multifocal and multisystemic (disseminated) Langerhans-cell histiocytosis; D70.8 Other neutropenia
CPT/HCPCS: 96372; Q5108

== ENCOUNTER 2019-03-15 06:13 | Day surgery (SDC) | payer SELFPAY ==
[2019-03-14 14:42] VITALS: BMI 37.8
[2019-03-15] MEDS ORDERED: PHENYLEPHRINE-NS 100 MCG/ML 10 ML SYRINGE ONE (13:24)
[2019-03-15] MEDS ORDERED: PROPOFOL 200 MG/20 ML VIAL ONE (13:24)
[2019-03-15] MEDS ORDERED: Lidocaine 1% PF 5 ML VIAL ONE (13:24)
--- NOTE | 2019-03-15 14:47 | OP ---
DATE OF PROCEDURE: 03/15/2019 PROCEDURE PERFORMED: Esophagogastroduodenoscopy and colonoscopy with biopsy. PREOPERATIVE DIAGNOSIS: Anemia with iron deficiency and hematochezia. DESCRIPTION OF PROCEDURE: Informed consent was obtained from the patient. He was sedated with total intravenous anesthesia. The bite block was placed and the endoscope was advanced easily to the second portion of the duodenum and retroflexion was performed in the stomach. The esophagus was normal. The GE junction was normal. The stomach was normal including retroflexed views. The pylorus and first and second portions of the duodenum were normal. The patient was turned around. Perianal exam reveals marked skin ulceration in the perianal area. The anal sphincter tone is normal. The internal digital exam is normal. The colonoscope was advanced to the terminal ileum without difficulty. The mucosa of the terminal ileum was normal. The ileocecal valve and appendiceal orifice were clearly identified. Two polyps measuring 2 to 3 mm were removed with a cold biopsy forceps from the transverse colon. There was mild diverticulosis of the sigmoid colon. The remainder of the colonic mucosa was normal including retroflexed views in the rectum. IMPRESSION: 1. Normal esophagogastroduodenoscopy. 2. Sigmoid diverticulosis. 3. Two small polyps removed from the transverse colon by cold biopsy forceps. 4. Otherwise normal colonoscopy. 5. 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 RECOMMENDATIONS: 1. Await histopathology. 2. Repeat colonoscopy in 5 years if either polyp has an adenoma. Repeat in 10 years if they are both hyperplastic or normal. 3. Follow up in GI clinic as needed. Job ID: [id number]
== END 2019-03-15 09:15 | disposition home or self-care (01) ==
LOC: SDC 06:13
PROVIDERS: ATTEND Internal Medicine Gastroenterology
PROC: 0DJ08ZZ Inspection of Upper Intestinal Tract, Via Natural or Artificial Opening Endoscopic (ICD-10-PCS; principal; 2019-03-15)
PROC: 0DBE8ZX Excision of Large Intestine, Via Natural or Artificial Opening Endoscopic, Diagnostic (ICD-10-PCS; principal; 2019-03-15)
DX: D50.9 Iron deficiency anemia, unspecified (principal); D12.3 Benign neoplasm of transverse colon; K57.31 Diverticulosis of large intestine without perforation or abscess with bleeding; C96.0 Multifocal and multisystemic (disseminated) Langerhans-cell histiocytosis; Z79.4 Long term (current) use of insulin; Z79.899 Other long term (current) drug therapy; Z87.891 Personal history of nicotine dependence
CPT/HCPCS: 36416; 88305; J2001; J2704

== ENCOUNTER 2019-03-20 10:18 | Day surgery (SDC) | payer SELFPAY ==
[~2019-03-20 10:18] MED LIST changes: +CYTARABINE IVPB SCH; +Ondansetron 2MG/ML MDV 10 MG in Sodium Chloride 0.9% 50 ML IVP SCH; -PEGFILGRASTIM-JMDB 6 MG/0.6 ML SYRINGE SQ SCH; +SODIUM CHLORIDE 0.9% IVPB SCH; +methylPREDNISolone Sod Succ 40 MG VIAL IVP SCH
[2019-03-20] MEDS: Sodium Chloride 0.9% 20 ML ONE ×2 (10:24→11:33)
[2019-03-20 10:30] VITALS: BP 131/77; TEMP 98.1
== END 2019-03-20 15:28 | disposition home or self-care (01) ==
LOC: ONC/OP 10:18
PROVIDERS: ATTEND Internal Medicine Hematology & Oncology
DX: Z51.11 Encounter for antineoplastic chemotherapy (principal); C96.0 Multifocal and multisystemic (disseminated) Langerhans-cell histiocytosis; D70.8 Other neutropenia
CPT/HCPCS: 80053; 82248; 83615; 84100; 84550; 96375; 96413; 96415; J1642; J2405; J2920; J7050; J9100

== ENCOUNTER 2019-03-21 13:06 | Day surgery (SDC) | payer SELFPAY ==
[2019-03-21] MEDS ORDERED: Sodium Chloride 0.9% 20 ML ONE (13:12)
[2019-03-21 14:12] VITALS: BP 123/68; TEMP 98.1
== END 2019-03-21 16:23 | disposition home or self-care (01) ==
LOC: ONC/OP 13:06
PROVIDERS: ATTEND Internal Medicine Hematology & Oncology
DX: Z51.11 Encounter for antineoplastic chemotherapy (principal); C96.0 Multifocal and multisystemic (disseminated) Langerhans-cell histiocytosis; D70.8 Other neutropenia
CPT/HCPCS: 96375; 96413; 96415; J1642; J2405; J2920; J7050; J9100

== ENCOUNTER 2019-03-22 10:58 | Day surgery (SDC) | payer SELFPAY ==
[2019-03-22 12:56] VITALS: BP 136/74; TEMP 98.7
[2019-03-22] MEDS ORDERED: Sodium Chloride 0.9% 10 ML ONE (14:21)
== END 2019-03-22 15:59 | disposition home or self-care (01) ==
LOC: ONC/OP 10:58
PROVIDERS: ATTEND Internal Medicine Hematology & Oncology
DX: Z51.11 Encounter for antineoplastic chemotherapy (principal); C96.0 Multifocal and multisystemic (disseminated) Langerhans-cell histiocytosis; D70.8 Other neutropenia
CPT/HCPCS: 96375; 96413; 96415; J1642; J2405; J2920; J7050; J9100

== ENCOUNTER 2019-03-23 12:07 | Day surgery (SDC) | payer SELFPAY ==
[2019-03-23] MEDS ORDERED: Sodium Chloride 0.9% 30 ML ONE (12:10)
[2019-03-23 12:19] VITALS: BP 121/69; TEMP 97.8
== END 2019-03-23 15:39 | disposition home or self-care (01) ==
LOC: ONC/OP 12:07
PROVIDERS: ATTEND Internal Medicine Hematology & Oncology
DX: Z51.11 Encounter for antineoplastic chemotherapy (principal); C96.0 Multifocal and multisystemic (disseminated) Langerhans-cell histiocytosis; D70.8 Other neutropenia
CPT/HCPCS: 96375; 96413; 96415; J1642; J2405; J2920; J7050; J9100

== ENCOUNTER 2019-03-24 11:52 | Day surgery (SDC) | payer SELFPAY ==
[2019-03-24 13:37] VITALS: BP 117/70; TEMP 98.6
== END 2019-03-24 14:36 | disposition home or self-care (01) ==
LOC: ONC/OP 11:52
PROVIDERS: ATTEND Internal Medicine Hematology & Oncology
DX: Z51.11 Encounter for antineoplastic chemotherapy (principal); C96.0 Multifocal and multisystemic (disseminated) Langerhans-cell histiocytosis; D70.8 Other neutropenia
CPT/HCPCS: 96375; 96413; 96415; J2405; J2920; J7050; J9100

== ENCOUNTER 2019-04-17 10:28 | Day surgery (SDC) | payer SELFPAY ==
[~2019-04-17 10:28] MED LIST changes: +Ondansetron 2MG/ML MDV 10 MG in Sodium Chloride 0.9% 50 ML IVPB SCH
[2019-04-17 10:43] VITALS: BP 107/57; TEMP 97.5
[2019-04-17] MEDS ORDERED: Sodium Chloride 0.9% 20 ML ONE (10:53)
== END 2019-04-17 14:14 | disposition home or self-care (01) ==
LOC: ONC/OP 10:28
PROVIDERS: ATTEND Internal Medicine Hematology & Oncology
DX: Z51.11 Encounter for antineoplastic chemotherapy (principal); C96.0 Multifocal and multisystemic (disseminated) Langerhans-cell histiocytosis; D70.8 Other neutropenia; Z79.899 Other long term (current) drug therapy
CPT/HCPCS: 96375; 96413; 96415; J1642; J2405; J2920; J7050; J9100

== ENCOUNTER 2019-04-18 14:45 | Day surgery (SDC) | payer SELFPAY ==
[~2019-04-18 14:45] MED LIST changes: -Ondansetron 2MG/ML MDV 10 MG in Sodium Chloride 0.9% 50 ML IVP SCH
[2019-04-18] MEDS ORDERED: Sodium Chloride 0.9% 20 ML ONE (14:52)
== END 2019-04-18 17:22 | disposition home or self-care (01) ==
LOC: ONC/OP 14:45
PROVIDERS: ATTEND Internal Medicine Hematology & Oncology
DX: Z51.11 Encounter for antineoplastic chemotherapy (principal); C96.0 Multifocal and multisystemic (disseminated) Langerhans-cell histiocytosis; D70.8 Other neutropenia
CPT/HCPCS: 96375; 96413; 96415; J1642; J2405; J2920; J7050; J9100

== ENCOUNTER 2019-04-19 10:02 | Day surgery (SDC) | payer SELFPAY ==
[~2019-04-19 10:02] MED LIST changes: +Ondansetron PF 4 MG/2 ML Vial IVP SCH
[2019-04-19] MEDS ORDERED: Sodium Chloride 0.9% 20 ML ONE (10:09)
[2019-04-19 10:46] VITALS: BP 128/65; TEMP 98.5
== END 2019-04-19 13:07 | disposition home or self-care (01) ==
LOC: ONC/OP 10:02
PROVIDERS: ATTEND Internal Medicine Hematology & Oncology
DX: Z51.11 Encounter for antineoplastic chemotherapy (principal); C96.0 Multifocal and multisystemic (disseminated) Langerhans-cell histiocytosis; D70.8 Other neutropenia
CPT/HCPCS: 96375; 96413; 96415; J1642; J2405; J2920; J7050; J9100

== ENCOUNTER 2019-04-20 11:27 | Day surgery (SDC) | payer OTHER, SELFPAY ==
[2019-04-20] MEDS ORDERED: Ondansetron HCl/PF 10 MG in Sodium Chloride 0.9% 50 ML IVPB SCH (11:45)
[2019-04-20] MEDS ORDERED: methylPREDNISolone Sod Succ 40 MG VIAL IVP SCH (11:45)
[2019-04-20 11:54] VITALS: BP 115/57; TEMP 98.5
[2019-04-20] MEDS ORDERED: CYTARABINE IVPB SCH (12:00)
[2019-04-20] MEDS ORDERED: SODIUM CHLORIDE 0.9% IVPB SCH (12:00)
[2019-04-20] MEDS ORDERED: Sodium Chloride 0.9% 40 ML ONE (12:07)
[2019-04-21] MEDS ORDERED: Ondansetron HCl/PF 10 MG in Sodium Chloride 0.9% 50 ML IVPB SCH (06:00)
[2019-04-21] MEDS ORDERED: SODIUM CHLORIDE 0.9% IVPB SCH (06:00)
[2019-04-21] MEDS ORDERED: CYTARABINE IVPB SCH (06:00)
[2019-04-21] MEDS ORDERED: methylPREDNISolone Sod Succ 40 MG VIAL IVP SCH (06:00)
== END 2019-04-20 14:27 | disposition home or self-care (01) ==
LOC: ONC/OP 11:27
PROVIDERS: ATTEND Internal Medicine Hematology & Oncology
DX: Z51.11 Encounter for antineoplastic chemotherapy (principal); C96.0 Multifocal and multisystemic (disseminated) Langerhans-cell histiocytosis; D70.8 Other neutropenia; Z79.4 Long term (current) use of insulin; Z79.899 Other long term (current) drug therapy
CPT/HCPCS: 96375; 96413; 96415; J1642; J2405; J2920; J7050; J9100

== ENCOUNTER 2019-04-21 10:57 | Day surgery (SDC) | payer SELFPAY ==
[~2019-04-21 10:57] MED LIST changes: +Bacteriostatic Water 30 ML VIAL FS PRN; -Ondansetron 2MG/ML MDV 10 MG in Sodium Chloride 0.9% 50 ML IVPB SCH; +Ondansetron HCl/PF 10 MG in Sodium Chloride 0.9% 50 ML IVPB SCH; -Ondansetron PF 4 MG/2 ML Vial IVP SCH
[2019-04-21] MEDS ORDERED: Sodium Chloride 0.9% 20 ML ONE (11:02)
== END 2019-04-21 14:20 | disposition home or self-care (01) ==
LOC: ONC/OP 10:57
PROVIDERS: ATTEND Internal Medicine Hematology & Oncology
DX: Z51.11 Encounter for antineoplastic chemotherapy (principal); C96.0 Multifocal and multisystemic (disseminated) Langerhans-cell histiocytosis; D70.8 Other neutropenia; Z79.4 Long term (current) use of insulin; Z79.899 Other long term (current) drug therapy
CPT/HCPCS: 96375; 96413; 96415; J1642; J2405; J2920; J7050; J9100

== ENCOUNTER 2019-05-11 10:46 | Outpatient (CLI) | payer OTHER ==
--- NOTE | 2019-05-11 14:29 | PET ---
Radionucleotide PET scan with CT attenuation correction HISTORY: Langerhans' cell histiocytosis. Restaging. COMPARISON: 02/16/2019. FINDINGS: Physiologic uptake of radiotracer throughout the enteric system and along each urinary trac t. A new area of increased radiotracer uptake associated with the right maxilla and right posterior uppe r tooth shows a maximum SUV of 8.1. A nonenlarged right jugulodigastric lymph node is also now hypermetabolic, maximum SUV 3.8. The nondiagnostic CT attenuation correction images show irregularity at the base of the tooth, suggestive of dental disease. A somewhat linear area of increased uptake within the right lateral paraspinal musculature at the lev el of C2 now shows a maximum SUV of 3.3 (previously 5.9). At the upper thoracic right paramediastinal intrathoracic soft tissues, near T2, maximum SUV is now 5 .2 (previously 9.5). More inferiorly and right posterior paraspinal, maximum SUV is 3.1 (previously 3.3). Small nodule right posterolateral pleural-based maximum SUV 2.6 (previously 2.6). Nonenlarged right upper retrocrural as a dual lymph node maximum SUV 3.9 (previously 3.7). Lower retroesophageal nonenlarged lymph nodes maximum SUV 4.8 (previously 7.2). IMPRESSION: Overall, mild to moderate improvement of the nonenlarged thoracic lymph nodes and intrath oracic parenchymal/pleural hypermetabolic foci. Abnormality at the right maxilla and jugulodigastric lymph node is favored to be related to dental di sease and reactive lymph node uptake.
== END 2019-05-11 10:47 | disposition home or self-care (01) ==
LOC: PET 10:46
PROVIDERS: ATTEND Internal Medicine Hematology & Oncology
DX: C96.0 Multifocal and multisystemic (disseminated) Langerhans-cell histiocytosis (principal)
CPT/HCPCS: 78815; A9552

== ENCOUNTER 2019-05-15 10:03 | Day surgery (SDC) | payer OTHER ==
[2019-05-15] MEDS ORDERED: Sodium Chloride 0.9% 20 ML ONE (10:54)
== END 2019-05-15 16:32 | disposition home or self-care (01) ==
LOC: ONC/OP 10:03
PROVIDERS: ATTEND Internal Medicine Hematology & Oncology
DX: Z51.11 Encounter for antineoplastic chemotherapy (principal); C96.0 Multifocal and multisystemic (disseminated) Langerhans-cell histiocytosis; D70.8 Other neutropenia
CPT/HCPCS: 36415; 80053; 82248; 83615; 84100; 84550; 96375; 96413; 96415; J1642; J2405; J2920; J7050; J9100

== ENCOUNTER 2019-05-16 12:50 | Day surgery (SDC) | payer OTHER ==
[~2019-05-16 12:50] MED LIST changes: +Ondansetron 2MG/ML MDV 10 MG in Sodium Chloride 0.9% 50 ML IVPB SCH; -Ondansetron HCl/PF 10 MG in Sodium Chloride 0.9% 50 ML IVPB SCH; +Sodium Chloride 0.9% 20 ML ONE
[2019-05-16] MEDS ORDERED: SODIUM CHLORIDE 0.9% IJ SCH (13:00)
[2019-05-16] MEDS ORDERED: CYTARABINE IJ SCH (13:00)
[2019-05-16 15:18] VITALS: BP 101/56; TEMP 97.8
== END 2019-05-16 15:33 | disposition home or self-care (01) ==
LOC: ONC/OP 12:50
PROVIDERS: ATTEND Internal Medicine Hematology & Oncology
DX: Z51.11 Encounter for antineoplastic chemotherapy (principal); C96.0 Multifocal and multisystemic (disseminated) Langerhans-cell histiocytosis; D70.8 Other neutropenia
CPT/HCPCS: 96375; 96413; 96415; J1642; J2405; J2920; J7050; J9100

== ENCOUNTER 2019-05-17 10:17 | Day surgery (SDC) | payer OTHER ==
[~2019-05-17 10:17] MED LIST changes: +CYTARABINE IJ SCH; -CYTARABINE IVPB SCH; +SODIUM CHLORIDE 0.9% IJ SCH; -SODIUM CHLORIDE 0.9% IVPB SCH; -Sodium Chloride 0.9% 20 ML ONE
[2019-05-17] MEDS ORDERED: Sodium Chloride 0.9% 20 ML ONE (10:31)
[2019-05-17 14:05] VITALS: BP 119/59; TEMP 97.6
== END 2019-05-17 15:53 | disposition home or self-care (01) ==
LOC: ONC/OP 10:17
PROVIDERS: ATTEND Internal Medicine Hematology & Oncology
DX: Z51.11 Encounter for antineoplastic chemotherapy (principal); C96.0 Multifocal and multisystemic (disseminated) Langerhans-cell histiocytosis; D70.8 Other neutropenia
CPT/HCPCS: 96375; 96413; 96415; J1642; J2405; J2920; J7050; J9100

== ENCOUNTER 2019-05-18 10:24 | Day surgery (SDC) | payer OTHER ==
[~2019-05-18 10:24] MED LIST changes: -Bacteriostatic Water 30 ML VIAL FS PRN
[2019-05-18] MEDS ORDERED: Sodium Chloride 0.9% 20 ML ONE (10:27)
[2019-05-18 14:06] VITALS: BP 113/60
== END 2019-05-18 15:18 | disposition home or self-care (01) ==
LOC: ONC/OP 10:24
PROVIDERS: ATTEND Internal Medicine Hematology & Oncology
DX: Z51.11 Encounter for antineoplastic chemotherapy (principal); C96.0 Multifocal and multisystemic (disseminated) Langerhans-cell histiocytosis; D70.8 Other neutropenia
CPT/HCPCS: 96375; 96413; 96415; J1642; J2405; J2920; J7050; J9100

== ENCOUNTER 2019-05-19 10:17 | Day surgery (SDC) | payer OTHER ==
[2019-05-19] MEDS ORDERED: Sodium Chloride 0.9% 30 ML ONE (10:43)
[2019-05-19 10:57] VITALS: BP 110/60; TEMP 98.1
== END 2019-05-19 15:30 | disposition home or self-care (01) ==
LOC: ONC/OP 10:17
PROVIDERS: ATTEND Internal Medicine Hematology & Oncology
DX: Z51.11 Encounter for antineoplastic chemotherapy (principal); C96.0 Multifocal and multisystemic (disseminated) Langerhans-cell histiocytosis; D70.8 Other neutropenia
CPT/HCPCS: 96375; 96413; 96415; J1642; J2405; J2920; J7050; J9100

== ENCOUNTER 2019-06-06 13:40 | Inpatient (IN) | payer MEDICAID, SELFPAY ==
[2019-06-06] MEDS ORDERED: ISOVUE-370 76%-LOCM 1 ML ONE (14:50)
[2019-06-06 15:17] LABS: Hemoglobin 8.9 g/dL (14.0-18.0); Mean Corpuscular HGB CONC 30.4 g/dL (32.0-36.0); Mean Corpuscular Hemoglobin 25.9 pg (27.0-31.0); Mean Corpuscular Volume 85.2 fL (78.0-98.0); Mean Platelet Volume 7.7 fL (7.4-10.4); Platelet Count 371 thou/uL (130-400); RBC Distribution Width 17.6 % (11.5-14.5); Red Blood Cell (RBC) Count 3.45 mill/uL (4.70-6.10); White Blood Cell (WBC) Count 3.6 thou/uL (4.8-10.8)
[2019-06-06 15:31] LABS: ALT (SGPT) Less than 7 U/L (8-55); AST (SGOT) 11 U/L (5-34); Albumin 3.2 g/dL (3.5-5.0); Alkaline Phosphatase 104 U/L (40-150); Anion Gap 11 mmol/L (10-20); BUN (Urea Nitrogen) 7 mg/dL (8.9-20.6); Bilirubin, Total 0.3 mg/dL (0.2-1.2); Calc. Creatinine Clearance 0 mL/min (70-130); Calcium 8.7 mg/dL (7.8-10.44); Carbon Dioxide 25 mmol/L (22-29); Chloride 103 mmol/L (98-107); Estimated GFR-MDRD 77; Globulin 3.7 g/dL (2.4-3.5); Glucose 121 mg/dL (70-105); Potassium 3.1 mmol/L (3.5-5.1); Protein, Total 6.9 g/dL (6.0-8.3); Sodium 136 mmol/L (136-145)
[2019-06-06 15:42] LABS: Band 15 % (5-11); Eosinophils 2 % (0-10); Hypochromia SLIGHT = 6-15 cells (100X) (0-5/hpf); Lymphocytes 43 % (21-51); MDiff Complete? YES; Monocytes 32 % (0-10); Neutrophil 8 % (42-75); Nucleated RBC 1 % (0); Ovalocytes SLIGHT = 2-5 cells (100X) (0-1/hpf); Platelet Morphology Comment Appears Adequate; Polychromasia SLIGHT = 2-3 cells (100X) (0-2/hpf); Tear Drops SLIGHT = 2-5 cells (100X) (0-1/hpf)
[2019-06-06] MEDS ORDERED: Vancomycin HCl 1.5 GM in Sodium Chloride 0.9% 250 ML 300 ML IVPB ONE (16:30)
[2019-06-06] MEDS ORDERED: Morphine 4 MG/ML VIAL ONE (16:41)
--- NOTE | 2019-06-06 17:03 | CT ---
CT abdomen pelvis with IV contrast: HISTORY: Gluteal ulceration. Langerhans cell histiocytosis with presentation of worsening ulceration/ wound in his gluteal folds. COMPARISON: 02/14/2018 FINDINGS: Cystic parenchymal changes in the lung bases are again seen. There is diffuse fatty infiltration of t he liver without focal mass or abnormal biliary ductal dilatation. Focal calcification in the right lobe of the liver is stable. No calcific gallstones are seen. The spleen measures 16.3 cm in length. The pancreas, adrenal glands and kidneys are normal. 10 mm portacaval lymph node is stable. No other enlarged lymph nodes are seen. No free air or free fluid is noted in the abdomen or pelvis. There are vascular calcifications withou t evidence of aneurysmal dilatation of the abdominal aorta. There are mild degenerative changes in the spine. There is skin thickening along the medial aspect of the gluteal folds. No abnormally locul ated fluid collection is noted to suggest abscess formation. Mild inflammatory changes are seen in this region. IMPRESSION: 1. Fatty liver 2. Splenomegaly 3. No evidence of abscess formation.
[2019-06-06] MEDS ORDERED: Acetaminophen 325 MG TAB ONE ×2 (17:05→17:10)
[2019-06-06] MEDS ORDERED: Vancomycin HCl 1 GM in Premix Bag 1 BAG IVPB SCH (18:00)
[2019-06-06] MEDS ORDERED: Piperacillin/Tazobactam 3.375 GM VIAL ONE (18:55)
[2019-06-06 20:46] VITALS: BMI 38.7
[2019-06-06] MEDS ORDERED: Ondansetron PF 4 MG/2 ML Vial IVP PRN (21:00)
[2019-06-06] MEDS ORDERED: Acetaminophen 325 MG TAB PO PRN (21:00)
[2019-06-06] MEDS ORDERED: Ondansetron ODT 4 MG TAB PO PRN (21:00)
[2019-06-06] MEDS ORDERED: Acetaminophen 650 MG Suppository PR PRN (21:00)
[2019-06-06] MEDS ORDERED: HumaLOG 300 UNITS/3 ML VIAL SC PRN (21:02)
[2019-06-06] MEDS ORDERED: Dextrose 5% in Water 1,000 ML IV PRN (21:02)
[2019-06-06] MEDS ORDERED: Dextrose 50% Abboject 50 ML SYRINGE SLOW IVP PRN (21:02)
--- NOTE | 2019-06-06 22:06 | HP ---
CODE STATUS: Full code. TIME OF EVALUATION: 08:50 a.m. CHIEF COMPLAINT: Perianal wound. PRIMARY CARE DOCTOR: The patient goes to [facility]. HISTORY OF PRESENT ILLNESS: This is a 48-year-old male patient with past medical history of Langerhans cell histiocytosis. The patient came to the hospital after having recurrence of gradually worsening ulceration and wounds to his gluteal folds. The wound has been there for 3 years, but in the past 2 to 3 days, the symptoms have been worse with severe pain, reported as sharp. The drainage is foul smelling. Reportedly, the patient has had chemotherapy and follows with Dr. Smith for the same problem. Patient is more comfortable. We will treat with pain management, put the patient on antibiotics. We will consult Dr. Smith, Dr. Martin. Case has been discussed by Dr. Diamond with Dr. Martin and no need for any surgical intervention at this point. Recommended for Oncology to follow up the patient. REVIEW OF SYSTEMS: CONSTITUTIONAL: No fever, chills. Generalized weakness. RESPIRATORY: No cough, sputum production, shortness of breath. CARDIOVASCULAR: No chest pain or palpitation. GASTROINTESTINAL: No nausea, no vomiting, diarrhea, or abdominal pain. The patient does have perianal ulceration with foul-swelling drainage with severe pain. CENTRAL NERVOUS SYSTEM: No dizziness, headache, or feeling lightheaded. GENITOURINARY: No burning on urination. EXTREMITIES: No leg swelling. All other systems were reviewed and negative except for the findings mentioned above. PAST MEDICAL HISTORY: Positive for diabetes type 2; asthma; histiocytosis, on chemotherapy, last treatment 05/23/2019. FAMILY HISTORY:Reviewed and non contributory for current presentation. PAST SURGICAL HISTORY: Right foot surgery, appendectomy, surgical debridement of sacral ulcer and perianal ulcer, port placement in the right chest. PSYCHIATRIC HISTORY: No previous psych history. SOCIAL HISTORY: The patient drinks socially rarely. The patient denies any drug use. The patient is a former tobacco user. Smokes cigarettes. Lives at home with family. ALLERGIES: NO KNOWN DRUG ALLERGIES. REPORTED MEDICATIONS: 1. Ibuprofen. 2. Symbicort. 3. Proventil HFA. 4. Metformin. 5. Glipizide. 6. Ipratropium. 7. Albuterol. 8. Cyclobenzaprine. 9. Regenecare. 10. Novolin 70/30. 11. Lidocaine. PHYSICAL EXAMINATION: VITAL SIGNS: On presentation blood pressure 104/67, heart rate 93, respiratory rate was 20, temperature 97.8. Pain was 10/10 on presentation, now is better. Oxygen saturation 94% on room air. GENERAL APPEARANCE: The patient is obese. He is alert, oriented, in no acute distress. Pain is better. HEENT: Head and eyes, normal conjunctivae. Moist oral mucosa. Anicteric. No JVD. RESPIRATORY: Bilateral air entry. No rales. No wheezes. Symmetric expansion. CARDIOVASCULAR: Normal rate and regular rhythm. No murmurs. No gallop. No edema. ABDOMEN: Soft. Normal bowel sounds. MUSCULOSKELETAL: Baseline range of motion and strength. SKIN: Warm, intact. No pallor. No rash. No redness except for the ulceration on the perianal area. Does have foul smelling and drainage. Capillary refill seems to be intact. NEUROLOGIC: No evidence of any new focal weakness. Cranial nerves seem to be intact. PSYCHIATRIC: Patient has good mood. No anxiety. Optimal judgment. DIAGNOSTIC DATA: Abdomen and pelvis CT was done. The patient has fatty liver disease, splenomegaly. No evidence of abscess formation. Labs were reviewed. The patient has white count 3.6, hemoglobin 8.9, MCV 85.2, platelet count 371. Chemistry; sodium 136, potassium 3.1, chloride 103, carbon dioxide 25, anion gap 11, BUN 7, creatinine 1.03, GFR 77, glucose 121, lactic acid 1.8, calcium 9.7, total bilirubin 0.3, AST 11, ALT less than 7, alkaline phosphatase 104. Serum total protein 6.9, albumin 3.2, globulin 3.7, albumin globulin ratio is 0.9. ASSESSMENT AND PLAN: The patient will be placed in the hospital with following medical problems; 1. Open nonhealing wound in the perianal area secondary to histiocytosis. We will consult Dr. Smith for any further recommendation. The patient has recent chemo. No need for any surgical intervention at this point. Discussed by Dr. Diamond with Dr. Martin. We will order wound care. 2. Severe pain due to nonhealing ulcer. We will manage pain, might need opioid medication for optimal control. This place the patient at high risk complication from opioid medications. 3. Normocytic anemia. This is chronic, could be related to underlying chemo/histiocytosis and chronic disease. This is stable, can be followed as outpatient. 4. Leukopenia. This could be related to recent chemo. Dr. Smith will be consulted for further management. 5. Hypokalemia, potassium 3.1. We will replace electrolytes as needed. 6. Uncontrolled diabetes with sugar 121. This is close to normal. We will place the patient on sliding scale. Reconcile home medications. 7. Deep venous thrombosis prophylaxis. 8. History of asthma. This is chronic and stable. Reconcile home medications. Job ID: [id number] [facility]
[2019-06-07] MEDS: Morphine 2 MG/ML SYRINGE SLOW IVP PRN ×3 (00:42→15:38)
[2019-06-07] MEDS: Piperacillin/Tazobactam 4.5 GM in Sodium Chloride 0.9% 100 ML IVPB SCH ×3 (04:10→20:27)
[2019-06-07] MEDS: Vancomycin HCl 1.5 GM in Sodium Chloride 0.9% 250 ML 300 ML IVPB SCH ×2 (04:17→17:59)
[2019-06-07] MEDS ORDERED: Senokot S 8.6-50 MG TAB PO PRN (05:27)
[2019-06-07] MEDS ORDERED: Diabetic Tussin 200 MG/10 ML UDCUP PO PRN (05:27)
[2019-06-07] MEDS ORDERED: Bisacodyl 10 MG SUPP PR PRN (05:27)
[2019-06-07] MEDS ORDERED: Loratadine 10 MG TAB PO PRN (05:27)
[2019-06-07] MEDS ORDERED: Loperamide HCl 2 MG CAP PO PRN (05:27)
[2019-06-07] MEDS ORDERED: Sodium Chloride 0.65% Nasal 44 ML BOT EA NARE PRN (05:27)
[2019-06-07] MEDS ORDERED: hydrALAZINE 20 MG/ML VIAL SLOW IVP PRN (05:27)
[2019-06-07] MEDS ORDERED: Cepastat Lozenges 1 LOZ PO PRN (05:27)
[2019-06-07] MEDS ORDERED: Zolpidem Tartrate 5 MG TAB PO PRN (05:27)
[2019-06-07] MEDS ORDERED: Acetaminophen 500 MG TAB PO PRN (05:27)
[2019-06-07] MEDS ORDERED: Artificial Tears 18 DROP/0.9 ML EA EYE PRN (05:27)
[2019-06-07] MEDS ORDERED: PROVENTIL INHALER 6.7 G (200 INHALATIONS) INH PRN (06:51)
[2019-06-07 07:16] LABS: Hemoglobin 9.3 g/dL (14.0-18.0); Mean Corpuscular HGB CONC 30.7 g/dL (32.0-36.0); Mean Corpuscular Hemoglobin 26.2 pg (27.0-31.0); Mean Corpuscular Volume 85.4 fL (78.0-98.0); Mean Platelet Volume 8.2 fL (7.4-10.4); Platelet Count 356 thou/uL (130-400); RBC Distribution Width 17.8 % (11.5-14.5); Red Blood Cell (RBC) Count 3.53 mill/uL (4.70-6.10); White Blood Cell (WBC) Count 4.1 thou/uL (4.8-10.8)
[2019-06-07 07:22] LABS: Anion Gap 13 mmol/L (10-20); BUN (Urea Nitrogen) 8 mg/dL (8.9-20.6); Calc. Creatinine Clearance 107 mL/min (70-130); Calcium 8.2 mg/dL (7.8-10.44); Carbon Dioxide 23 mmol/L (22-29); Chloride 104 mmol/L (98-107); Estimated GFR-MDRD 67; Glucose 117 mg/dL (70-105); Sodium 137 mmol/L (136-145)
--- NOTE | 2019-06-07 07:56 | PDOC.HOSPP ---
- Subjective Subjective: Patient seen and examined. No new complaints. No overnight events - Objective Vital Signs & Weight: Vital Signs (12 hours) Temp Pulse Resp BP Pulse Ox 06/07/19 07:29 97.8 F 70 20 100/62 98 06/07/19 03:59 97.9 F 75 16 122/66 95 06/06/19 23:51 98.4 F 74 16 95/54 L 93 L 06/06/19 21:00 93 L 06/06/19 20:43 97.6 F 59 L 16 119/68 93 L Weight Weight 211 lb 8 oz I&O: 06/06/19 06/07/19 06/08/19 06:59 06:59 06:59 Intake Total 700 Output Total 800 Balance -100 Result Diagrams: 06/07/19 06:35 06/07/19 06:35 Additional Labs: Accuchecks 06/07/19 06/06/19 05:24 21:24 POC Glucose 101 113 H Radiology Reviewed by me: Yes (CT abdomen pelvis noted) ROS - Review of Systems All systems: All other ROS were reviewed and found negative. Constitutional: denies: fever, chills, sweats, weakness, malaise, other Eyes: denies: pain, vision change, conjunctivae inflammation, eyelid inflammation, redness, other ENT: denies: ear pain, ear discharge, nose pain, nose discharge, nose congestion , mouth pain, mouth swelling, throat pain, throat swelling, other Respiratory: denies: cough, dry, shortness of breath, hemoptysis, SOB with excertion, pleuritic pain, sputum, wheezing, other Cardiovascular: denies: chest pain, palpitations, orthopnea, paroxysmal noc. dyspnea, edema, light headedness, other Gastrointestinal: denies: nausea, vomitting, abdominal pain, diarrhea, constipation, melena, hematochezia, other Genitourinary: denies: dysuria, frequency, incontinence, hematuria, retention, other Musculoskeletal: denies: neck pain, shoulder pain, arm pain, back pain, hand pain, leg pain, foot pain, other Skin: denies: rash, lesions, dann, bruising, other - Medication Medications: Active Medications Generic Name Dose Route Start Last Admin Trade Name Freq PRN Reason Stop Dose Admin Acetaminophen 650 mg 06/06/19 21:00 06/07/19 04:06 Tylenol PO 650 mg Q4H PRN Administration Headache/Fever/Mild Pain (1-3) Piperacillin Sod/Tazobactam 100 mls @ 200 mls/hr 06/07/19 04:00 06/07/19 04: 10 Sod 4.5 gm/ Sodium Chloride IVPB 100 mls 0400,1200,2000 SNEHAL Administration Vancomycin HCl 1.5 gm/ Sodium 300 mls @ 200 mls/hr 06/07/19 05:00 06/07/19 04 :17 Chloride IVPB 300 mls 0500,1700 SNEHAL Administration Morphine Sulfate 2 mg 06/07/19 00:22 06/07/19 00:42 Morphine SLOW IVP 2 mg Q4H PRN Administration Moderate to Severe Pain (4-10) - Exam NAD, awake alert Eye: PERRL, anicteric sclera ENT: normocephalic atraumatic, no oropharyngeal lesions Neck: supple, symmetric, no JVD Heart: RRR, no murmur, no gallops, no rubs Respiratory: CTAB, no wheezes, no rales, no ronchi Gastrointestinal: soft, non-tender, non-distended, normal bowel sounds Extremities: no cyanosis, no clubbing, no edema Skin: normal turgor (perirectal wound noted) Neurological: CN's grossly intact, normal sensation to touch Musculoskeletal: normal tone, normal strength Psychiatric: normal affect, normal behavior Hosp A/P (1) Hypokalemia Code(s): E87.6 - HYPOKALEMIA Status: Acute (2) Infected decubitus ulcer Code(s): L89.90 - PRESSURE ULCER OF UNSPECIFIED SITE, UNSPECIFIED STAGE; L08.9 - LOCAL INFECTION OF THE SKIN AND SUBCUTANEOUS TISSUE, UNSP Status: Acute Qualifiers: Pressure injury stage: stage 4 (3) Asthma Code(s): J45.909 - UNSPECIFIED ASTHMA, UNCOMPLICATED Status: Chronic (4) COPD (chronic obstructive pulmonary disease) Status: Chronic Qualifiers: (5) Cystic-bullous disease of lung Code(s): J98.4 - OTHER DISORDERS OF LUNG Status: Chronic (6) DM type 2 (diabetes mellitus, type 2) Status: Chronic Qualifiers: (7) HTN (hypertension) Code(s): I10 - ESSENTIAL (PRIMARY) HYPERTENSION Status: Chronic Qualifiers: (8) Langerhans cell histiocytoses Code(s): C96.6 - UNIFOCAL LANGERHANS-CELL HISTIOCYTOSIS Status: Chronic (9) Obesity (BMI 30-39.9) Code(s): E66.9 - OBESITY, UNSPECIFIED Status: Chronic (10) Sacral decubitus ulcer, stage IV Code(s): L89.154 - PRESSURE ULCER OF SACRAL REGION, STAGE 4 Status: Chronic (11) Tobacco abuse Code(s): Z72.0 - TOBACCO USE Status: Chronic - Plan old records reviewed/req, continue antibiotics continue empiric antibiotics, vancomycin and zosyn wound care medication reviewed as above symptomatic treatment
[2019-06-07] MEDS: Enoxaparin Sodium 40 MG/0.4 ML SYRINGE SC SCH (08:26)
[2019-06-07 08:39] LABS: Band 9 % (5-11); Eosinophils 3 % (0-10); Hypochromia SLIGHT = 6-15 cells (100X) (0-5/hpf); Lymphocytes 64 % (21-51); MDiff Complete? YES; Metamyelocyte 4 % (0-0); Monocytes 6 % (0-10); Neutrophil 14 % (42-75); Platelet Morphology Comment Appears Adequate; Polychromasia SLIGHT = 2-3 cells (100X) (0-2/hpf); Tear Drops SLIGHT = 2-5 cells (100X) (0-1/hpf)
[2019-06-07] MEDS: HYDROcodone/Acetaminophen 5/325 mg Tablet PO PRN ×2 (12:07→22:25)
[2019-06-07] MEDS: Mometasone/Formoterol 120 PUFF INHALER INH SCH (19:09)
[2019-06-07] MEDS: Lidocaine 2% 11 ML SYR TOP PRN (20:27)
[2019-06-08] MEDS: Piperacillin/Tazobactam 4.5 GM in Sodium Chloride 0.9% 100 ML IVPB SCH ×4 (03:54→21:33)
[2019-06-08] MEDS ORDERED: Vancomycin HCl 1.5 GM in Sodium Chloride 0.9% 250 ML 300 ML IVPB SCH (05:00)
[2019-06-08] MEDS: Mometasone/Formoterol 120 PUFF INHALER INH SCH ×2 (07:35→19:40)
[2019-06-08] MEDS: Enoxaparin Sodium 40 MG/0.4 ML SYRINGE SC SCH (08:00)
[2019-06-08 09:19] LABS: Albumin 3.1 g/dL (3.5-5.0); Anion Gap 10 mmol/L (10-20); BUN (Urea Nitrogen) 5 mg/dL (8.9-20.6); BUN/Creatinine Ratio 4.72; Calc. Creatinine Clearance 117 mL/min (70-130); Calcium 8.4 mg/dL (7.8-10.44); Carbon Dioxide 26 mmol/L (22-29); Chloride 107 mmol/L (98-107); Estimated GFR-MDRD 75; Glucose 84 mg/dL (70-105); Magnesium 2.4 mg/dL (1.6-2.6); Phosphorus 3.1 mg/dL (2.3-4.7); Sodium 140 mmol/L (136-145)
--- NOTE | 2019-06-08 09:31 | PDOC.HOSPP ---
- Subjective Subjective: Patient seen and examined for wound infection/neutropenic fever. No new complaints. Pain controlled. No N/V/fever. No overnight events - Objective Vital Signs & Weight: Vital Signs (12 hours) Temp Pulse Resp BP Pulse Ox 06/08/19 07:48 97.5 F L 77 16 105/63 97 Weight Admit Weight 211 lb Weight 211 lb 8 oz I&O: 06/07/19 06/08/19 06/09/19 06:59 06:59 06:59 Intake Total 700 Output Total 800 Balance -100 Result Diagrams: 06/07/19 06:35 06/08/19 08:28 Additional Labs: Accuchecks 06/08/19 06/07/19 06/07/19 05:24 20:23 15:55 POC Glucose 84 94 90 06/07/19 10:32 POC Glucose 173 H Radiology Reviewed by me: Yes (CT abd - no abscess) ROS - Review of Systems Respiratory: denies: cough, dry, shortness of breath, hemoptysis, SOB with excertion, pleuritic pain, sputum, wheezing, other Cardiovascular: denies: chest pain, palpitations, orthopnea, paroxysmal noc. dyspnea, edema, light headedness, other - Medication Medications: Active Medications Generic Name Dose Route Start Last Admin Trade Name Freq PRN Reason Stop Dose Admin Acetaminophen 650 mg 06/06/19 21:00 06/07/19 04:06 Tylenol PO 650 mg Q4H PRN Administration Headache/Fever/Mild Pain (1-3) Hydrocodone Bitart/Acetaminophen 1 tab 06/07/19 05:27 06/07/19 22:25 [place] 5/325 PO 1 tab Q4H PRN Administration Moderate Pain (4-6) Enoxaparin Sodium 40 mg 06/07/19 09:00 06/08/19 08:00 Lovenox SC 40 mg 0900 SNEHAL Administration Piperacillin Sod/Tazobactam 100 mls @ 200 mls/hr 06/07/19 04:00 06/08/19 03: 54 Sod 4.5 gm/ Sodium Chloride IVPB 100 mls 0400,1200,2000 SNEHAL Administration Lidocaine HCl 0 ml 06/07/19 18:43 06/07/19 20:27 Glydo TOP 11 ml PRN PRN Administration Wound Care Mometasone Furoate/Formoterol Fumar 2 puff 06/07/19 18:30 06/07/19 19:09 Dulera 200 Mcg/5 Mcg Inhaler INH 2 puff BID-RT SNEHAL Administration Morphine Sulfate 2 mg 06/07/19 00:22 06/07/19 15:38 Morphine SLOW IVP 2 mg Q4H PRN Administration Moderate to Severe Pain (4-10) - Exam NAD Neck: supple, no JVD Heart: RRR, no gallops Respiratory: CTAB, no rales Gastrointestinal: soft, non-tender, normal bowel sounds Extremities: no edema Hosp A/P (1) Wound infection Code(s): T14.8XXA - OTHER INJURY OF UNSPECIFIED BODY REGION, INITIAL ENCOUNTER; L08.9 - LOCAL INFECTION OF THE SKIN AND SUBCUTANEOUS TISSUE, UNSP Status: Acute (2) Hypokalemia Code(s): E87.6 - HYPOKALEMIA Status: Acute (3) Perianal lesion Code(s): K62.9 - DISEASE OF ANUS AND RECTUM, UNSPECIFIED (4) Neutropenia Code(s): D70.9 - NEUTROPENIA, UNSPECIFIED Status: Acute Qualifiers: Neutropenia type: secondary to cancer chemotherapy Qualified Code(s): D70.1 - Agranulocytosis secondary to cancer chemotherapy; T45.1X5A - Adverse effect of antineoplastic and immunosuppressive drugs, initial encounter (5) HTN (hypertension) Code(s): I10 - ESSENTIAL (PRIMARY) HYPERTENSION Status: Chronic Qualifiers: (6) Langerhans cell histiocytoses Code(s): C96.6 - UNIFOCAL LANGERHANS-CELL HISTIOCYTOSIS (7) Obesity (BMI 30-39.9) Code(s): E66.9 - OBESITY, UNSPECIFIED (8) Other issues with previous notes - Plan DVT proph w/lovenox Cont Atbx - Vanc/Zosyn Monitor Vancomycin level Replace Potassium Await ID/Surg input Oncology notified - No new recs AM labs Cont wound care
[2019-06-08] MEDS ORDERED: Potassium Chloride 20 MEQ TAB PO SCH ×3 (09:45→18:00)
[2019-06-08] MEDS: Morphine 2 MG/ML SYRINGE SLOW IVP PRN (12:17)
[2019-06-08] MEDS: Potassium Chloride 20 MEQ TAB PO SCH ×2 (12:19→17:12)
[2019-06-08 16:54] LABS: Vancomycin, Random 15.5 ug/mL (See Comment)
[2019-06-08] MEDS: Lidocaine 2% 11 ML SYR TOP PRN (17:12)
[2019-06-08] MEDS ORDERED: Magnesium Citrate 300 ML BOT PO SCH (18:00)
[2019-06-08] MEDS ORDERED: Meropenem 2 GM in Admixture Fee 1 EACH IVPB SCH (18:00)
[2019-06-08] MEDS: Vancomycin HCl 750 MG in Sodium Chloride 0.9% 250 ML 250 ML IVPB SCH (18:25)
--- NOTE | 2019-06-09 00:21 | CON ---
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 He is initially diagnosed with this in November 22, 2015, from a lung biopsy by Dr. Tucker with whom he had a left upper lobe wedge biopsy for the same diagnosis. He has been seen by Oncology in consultation and treated with chemotherapy as an outpatient. The patient has been admitted by the Hospitalist Service because of foul smelling drainage. I have been asked to see him regarding his wounds. I have discussed with the patient using the gyroscope repairer service. He has severe pain with defecation, finds it difficult to care for his wound. He is in terrible discomfort. I have given him the option of a laparoscopic diverting colostomy reassuring this can be reversed in the future if his wounds improve. He desires that to improve his quality of life and wound care. He is due for chemotherapy next week. We will plan laparoscopic colostomy tomorrow. He understands the risks of infection, bleeding, reoperation, and consents. He had an echocardiogram with normal ejection fraction and [id number] mitral regurgitation on 01/18/2019. On this admission, he had abdominal and pelvis CAT scan that did not show any abscess. He has had numerous PET scans most recently, demonstrating some improvement in [id number] enlarged thoracic lymph nodes and changes related to dental disease. This admission, his hemoglobin is noted to be 9.3. Basic metabolic profile is normal except for a potassium of 3 for which he has been given potassium chloride. PAST MEDICAL HISTORY: Diabetes type 2, asthma, histiocytosis Langerhans on chemotherapy, last treatment on 05/23/2019. PAST SURGICAL HISTORY: Foot surgery, appendectomy, wedge resection of lung, biopsy of sacral ulcer and perineal wound, MediPort placement. SOCIAL HISTORY: Alcohol rarely. Tobacco, former use. Lives at home with his family. MEDICATIONS: 1. Ibuprofen. 2. Symbicort inhalers. 3. Metformin. 4. Glipizide. 5. Albuterol. 6. Regenecare. 7. Novolin 70/30. 8. Lidocaine jelly. 9. This hospitalization, he has been placed on Zosyn, although there is no active infection. PHYSICAL EXAMINATION: VITAL SIGNS: Height 5 foot 2 inches, 211 pounds, 38 BMI. Temperature 97.8, heart rate 66, blood pressure 101/63. HEAD, EYES, EARS, NOSE, AND THROAT: Unremarkable. LUNGS: Clear to auscultation. CARDIAC: Regular rhythm without murmur or gallop, but with 2/6 ejection murmur. ABDOMEN: Soft and nontender. Perineal and presacral wounds granulated tissue very tender and painful. No evidence of infection. EXTREMITIES: Unremarkable. LABORATORY DATA: As noted above. ASSESSMENT AND PLAN: Diverting colostomy for palliative care. This could be reversed in the future if his condition improves. This may be the permanent findings. We will consult Wound Care to educate him on colostomy care and for colostomy supplies as well as Heating Operators Engineer to facilitate that. The patient could be discharged home over the weekend after this and follow up with me in 2 to 3 weeks. He could get a chemotherapy next week from my standpoint, pending his clinical course high-dose postoperatively. Job ID: [id number]
[2019-06-09] MEDS: Morphine 2 MG/ML SYRINGE SLOW IVP PRN (02:44)
[2019-06-09] MEDS: Piperacillin/Tazobactam 4.5 GM in Sodium Chloride 0.9% 100 ML IVPB SCH ×2 (03:01→12:52)
[2019-06-09 06:03] LABS: Band 3 % (5-11); Eosinophils 1 % (0-10); Hemoglobin 9.4 g/dL (14.0-18.0); Hypochromia SLIGHT = 6-15 cells (100X) (0-5/hpf); Lymphocytes 45 % (21-51); MDiff Complete? YES; Mean Corpuscular HGB CONC 31.1 g/dL (32.0-36.0); Mean Corpuscular Hemoglobin 26.2 pg (27.0-31.0); Mean Corpuscular Volume 84.3 fL (78.0-98.0); Mean Platelet Volume 8.6 fL (7.4-10.4); Monocytes 9 % (0-10); Neutrophil 42 % (42-75); Platelet Count 337 thou/uL (130-400); Platelet Morphology Comment Appears Adequate; RBC Distribution Width 18.2 % (11.5-14.5); Red Blood Cell (RBC) Count 3.57 mill/uL (4.70-6.10); White Blood Cell (WBC) Count 5.9 thou/uL (4.8-10.8)
[2019-06-09] MEDS: Vancomycin HCl 750 MG in Sodium Chloride 0.9% 250 ML 250 ML IVPB SCH ×2 (06:06→17:53)
[2019-06-09 06:09] LABS: ALT (SGPT) 7 U/L (8-55); AST (SGOT) 12 U/L (5-34); Albumin 3.2 g/dL (3.5-5.0); Alkaline Phosphatase 87 U/L (40-150); Anion Gap 12 mmol/L (10-20); BUN (Urea Nitrogen) Less than 4 mg/dL (8.9-20.6); Bilirubin, Total 0.2 mg/dL (0.2-1.2); Calc. Creatinine Clearance 118 mL/min (70-130); Calcium 8.6 mg/dL (7.8-10.44); Carbon Dioxide 25 mmol/L (22-29); Chloride 114 mmol/L (98-107); Estimated GFR-MDRD 76; Globulin 3.5 g/dL (2.4-3.5); Glucose 89 mg/dL (70-105); Potassium 4.2 mmol/L (3.5-5.1); Protein, Total 6.7 g/dL (6.0-8.3); Sodium 147 mmol/L (136-145)
[2019-06-09] MEDS: Lactated Ringer's 1,000 ML IV SCH (07:38)
--- NOTE | 2019-06-09 07:58 | PDOC.HOSPP ---
- Subjective Encounter Date: 06/09/19 Encounter Time: 07:57 Subjective: Patient seen and examined for perianal wound infection with neutropenia. No N/ V. No new complaints. No overnight events - Objective Vital Signs & Weight: Vital Signs (12 hours) Temp Pulse Resp BP Pulse Ox 06/09/19 07:41 98.2 F 75 18 111/69 92 L 06/08/19 20:00 98.0 F 70 18 118/79 97 Weight Admit Weight 211 lb Weight 211 lb 8 oz I&O: 06/08/19 06/09/19 06/10/19 06:59 06:59 06:59 Intake Total 1600 Balance 1600 Result Diagrams: 06/09/19 05:15 06/09/19 05:15 Additional Labs: Accuchecks 06/09/19 06/08/19 06/08/19 05:17 20:16 17:03 POC Glucose 84 88 103 06/08/19 11:40 POC Glucose 100 ROS - Review of Systems Respiratory: denies: cough, dry, shortness of breath, hemoptysis, SOB with excertion, pleuritic pain, sputum, wheezing, other Cardiovascular: denies: chest pain, palpitations, orthopnea, paroxysmal noc. dyspnea, edema, light headedness, other - Medication Medications: Active Medications Generic Name Dose Route Start Last Admin Trade Name Freq PRN Reason Stop Dose Admin Hydrocodone Bitart/Acetaminophen 1 tab 06/07/19 05:27 06/07/19 22:25 [place] 5/325 PO 1 tab Q4H PRN Administration Moderate Pain (4-6) Enoxaparin Sodium 40 mg 06/07/19 09:00 06/08/19 08:00 Lovenox SC 40 mg 0900 SNEHAL Administration Piperacillin Sod/Tazobactam 100 mls @ 200 mls/hr 06/07/19 04:00 06/09/19 03: 01 Sod 4.5 gm/ Sodium Chloride IVPB 100 mls 0400,1200,2000 SNEHAL Administration Vancomycin HCl 750 mg/ Sodium 250 mls @ 250 mls/hr 06/08/19 18:00 06/09/19 06 :06 Chloride IVPB 250 mls 0600,1800 SNEHAL Administration Lactated Ringer's 1,000 mls @ 100 mls/hr 06/09/19 08:00 06/09/19 07:38 Lactated Ringer's IV 1,000 mls .Q10H SNEHAL Administration Lidocaine HCl 0 ml 06/07/19 18:43 06/08/19 17:12 Glydo TOP 11 ml PRN PRN Administration Wound Care Mometasone Furoate/Formoterol Fumar 2 puff 06/07/19 18:30 06/08/19 19:40 Dulera 200 Mcg/5 Mcg Inhaler INH 2 puff BID-RT SNEHAL Administration Morphine Sulfate 2 mg 06/07/19 00:22 06/09/19 02:44 Morphine SLOW IVP 2 mg Q4H PRN Administration Moderate to Severe Pain (4-10) - Exam NAD Neck: supple, no JVD Heart: RRR, no murmur, no rubs Respiratory: CTAB, no wheezes, no rales Gastrointestinal: soft, normal bowel sounds Extremities: no edema Hosp A/P (1) Wound infection Code(s): T14.8XXA - OTHER INJURY OF UNSPECIFIED BODY REGION, INITIAL ENCOUNTER; L08.9 - LOCAL INFECTION OF THE SKIN AND SUBCUTANEOUS TISSUE, UNSP Status: Acute (2) Perianal lesion Code(s): K62.9 - DISEASE OF ANUS AND RECTUM, UNSPECIFIED (3) Neutropenia Code(s): D70.9 - NEUTROPENIA, UNSPECIFIED Status: Acute Qualifiers: Neutropenia type: secondary to cancer chemotherapy Qualified Code(s): D70.1 - Agranulocytosis secondary to cancer chemotherapy; T45.1X5A - Adverse effect of antineoplastic and immunosuppressive drugs, initial encounter (4) Hypokalemia Code(s): E87.6 - HYPOKALEMIA Status: Acute (5) HTN (hypertension) Code(s): I10 - ESSENTIAL (PRIMARY) HYPERTENSION Status: Chronic Qualifiers: (6) Langerhans cell histiocytoses Code(s): C96.6 - UNIFOCAL LANGERHANS-CELL HISTIOCYTOSIS (7) Obesity (BMI 30-39.9) Code(s): E66.9 - OBESITY, UNSPECIFIED (8) Other issues with previous notes - Plan DVT proph w/lovenox Cont Vanc/Zosyn with Vancomycin level Diverting colostomy today Cont wound care NPO
[2019-06-09] MEDS: Enoxaparin Sodium 40 MG/0.4 ML SYRINGE SC SCH (08:24)
[2019-06-09] MEDS: Mometasone/Formoterol 120 PUFF INHALER INH SCH ×2 (10:27→19:37)
--- NOTE | 2019-06-09 16:24 | EKG ---
Test Reason : PRE OP Blood Pressure : / mmHG Vent. Rate : 067 BPM Atrial Rate : 067 BPM P-R Int : 176 ms QRS Dur : 088 ms QT Int : 438 ms P-R-T Axes : 049 031 022 degrees QTc Int : 462 ms Normal sinus rhythm Normal ECG When compared with ECG of 16-OCT-2018 04:11, Vent. rate has decreased BY 44 BPM Confirmed by ANGELI JOHNSON, DR. Olsen ([id number]) on 06/09/2019 4:24:15 PM Referred By: EVERTON MCALLISTER Confirmed By:DR. Raúl SUH MD
[2019-06-09] MEDS ORDERED: PROPOFOL 200 MG/20 ML VIAL ONE (17:09)
[2019-06-09] MEDS ORDERED: Succinylcholine Chloride 20 MG/ML 10 ml SYRINGE FS ONE (17:09)
[2019-06-09] MEDS ORDERED: Ondansetron PF 4 MG/2 ML Vial ONE (17:09)
[2019-06-09] MEDS ORDERED: Lidocaine 1% PF 5 ML VIAL ONE (17:09)
[2019-06-09] MEDS ORDERED: Dexamethasone 20 MG/5 ML VIAL ONE (17:09)
[2019-06-09] MEDS ORDERED: Rocuronium Bromide 10 MG/ML (10ML VIAL) ONE (17:09)
[2019-06-09] MEDS ORDERED: Glycopyrrolate 0.2 MG/ML 5 ML SYRINGE ONE (17:09)
[2019-06-09] MEDS ORDERED: PHENYLEPHRINE-NS 100 MCG/ML 10 ML SYRINGE ONE (17:09)
[2019-06-09] MEDS ORDERED: Bupivacaine/Epinephrine 0.25% 30 ML VIAL ONE ×2 (17:49→18:50)
[2019-06-09] MEDS ORDERED: Lidocaine 2% Jelly 5 ML TUBE ONE (17:52)
[2019-06-09] MEDS ORDERED: Fentanyl 100 MCG/2 ML VIAL ONE (17:52)
[2019-06-09] MEDS ORDERED: Ketorolac Tromethamine 30 MG/ML VIAL IVP PRN (18:06)
[2019-06-09] MEDS ORDERED: Acetaminophen 1,000 MG in Premix Bag 1 BAG IVPB PRN (18:06)
[2019-06-09] MEDS ORDERED: traMADol HCl 50 MG TAB PO PRN (18:14)
[2019-06-09] MEDS ORDERED: Bupivacaine HCl 0.5%/Epinephrine 1:200,000/PF 30 ml Vial ONE (18:50)
[2019-06-09] MEDS ORDERED: Promethazine HCl 25 MG/ML VIAL IM PRN (20:03)
[2019-06-09] MEDS ORDERED: Ondansetron HCl/PF 4 MG/2 ML Vial IVP PRN (20:03)
[2019-06-09] MEDS ORDERED: Promethazine HCl 25 MG/ML VIAL SLOW IVP PRN (20:03)
[2019-06-09] MEDS ORDERED: Piperacillin/Tazobactam 3.375 GM VIAL ONE (20:27)
[2019-06-09] MEDS ORDERED: Sodium Chloride 0.9% 0 ML ONE (20:28)
[2019-06-09] MEDS: Morphine 4 MG/ML VIAL SLOW IVP PRN (21:54)
[2019-06-09] MEDS: Acetaminophen 1,000 MG in Premix Bag 1 BAG IVPB SCH (23:21)
--- NOTE | 2019-06-10 00:21 | OP ---
DATE OF PROCEDURE: 06/09/2019 PREOPERATIVE DIAGNOSIS: Langerhans histiocytosis with open wounds, perineum, sacrum, painful. POSTOPERATIVE DIAGNOSIS: Langerhans histiocytosis with open wounds, perineum, sacrum, painful. PROCEDURE PERFORMED: Laparoscopic diverting colostomy. ANESTHESIA: General, local 0.5% Marcaine with epinephrine. DESCRIPTION OF PROCEDURE: The patient was taken to the operating room where under general anesthesia, abdomen was prepared with ChloraPrep and draped in routine fashion. Martin catheter had been placed at the beginning of the procedure and removed at the end. Right lateral subcostal incision was made, pneumoperitoneum to 15 mmHg was obtained with a Veress needle, replaced with a 5 port, and video laparoscope inserted. There were adhesions from the prior open appendectomy in the right lower quadrant. Right lateral mid abdominal incision was made and another 5 port placed, and laparoscopic adhesiolysis was taken down with the LigaSure. Mobilized the omentum out of the field of view. Through an old appendectomy scar in the right lower quadrant, a 12 port was placed. An infraumbilical incision was made and a 5 port was placed. The colon was identified. Distal colon above the rectosigmoid junction was mobilized mesentery circumferentially about the colon, which was divided with the Endo-NICOLA blue load stapler. Mesentery was divided proximally with LigaSure, mobilized the colon. At the predetermined colostomy marking site by the stoma therapist, circular defect was excised through the skin and a 5 mm port was placed through the rectus sheath. At this point, the colon was adequately mobile and a cruciate incision was made in the anterior fascia and this was dilated digitally, as the pneumoperitoneum was reduced, the colon was reached easily. Colon was then brought out through the ostomy and pneumoperitoneum was reestablished and colon was visualized and noted not to be torsed. Pneumoperitoneum was reduced. All instruments were removed and all laparoscopic incisions were approximated with interrupted subdermal 4-0 Monocryl and Ladera glue applied. Colostomy maturation was undertaken pulling the colon, excising the staple line, placing 4 Annemarie sutures of 3-0 Vicryl in 4 quadrants and simple sutures of 3-0 Vicryl were placed to complete maturation of the colostomy. A stoma appliance was applied. The patient tolerated the procedure well. Job ID: [id number]
[2019-06-10] MEDS: Morphine 4 MG/ML VIAL SLOW IVP PRN ×2 (05:18→08:53)
[2019-06-10] MEDS: Acetaminophen 1,000 MG in Premix Bag 1 BAG IVPB SCH ×3 (05:22→18:46)
[2019-06-10 06:19] LABS: Band 5 % (5-11); Elliptocytes SLIGHT = 2-5 cells (100X) (0-1/hpf); Hemoglobin 10.1 g/dL (14.0-18.0); Hypochromia SLIGHT = 6-15 cells (100X) (0-5/hpf); Lymphocytes 26 % (21-51); MDiff Complete? YES; Mean Corpuscular HGB CONC 30.5 g/dL (32.0-36.0); Mean Corpuscular Hemoglobin 26.7 pg (27.0-31.0); Mean Corpuscular Volume 87.4 fL (78.0-98.0); Mean Platelet Volume 8.7 fL (7.4-10.4); Metamyelocyte 3 % (0-0); Monocytes 10 % (0-10); Neutrophil 56 % (42-75); Platelet Count 340 thou/uL (130-400); Platelet Morphology Comment Appears Adequate; RBC Distribution Width 19.6 % (11.5-14.5); Red Blood Cell (RBC) Count 3.79 mill/uL (4.70-6.10)
[2019-06-10 06:20] LABS: ALT (SGPT) Less than 7 U/L (8-55); AST (SGOT) 15 U/L (5-34); Albumin 3.6 g/dL (3.5-5.0); Alkaline Phosphatase 88 U/L (40-150); Anion Gap 14 mmol/L (10-20); BUN (Urea Nitrogen) 5 mg/dL (8.9-20.6); Bilirubin, Total 0.2 mg/dL (0.2-1.2); Calc. Creatinine Clearance 94 mL/min (70-130); Calcium 9.3 mg/dL (7.8-10.44); Carbon Dioxide 22 mmol/L (22-29); Chloride 118 mmol/L (98-107); Estimated GFR-MDRD 58; Globulin 4.1 g/dL (2.4-3.5); Glucose 165 mg/dL (70-105); Potassium 4.1 mmol/L (3.5-5.1); Protein, Total 7.7 g/dL (6.0-8.3); Sodium 150 mmol/L (136-145)
[2019-06-10] MEDS: Lactated Ringer's 1,000 ML IV SCH (07:34)
[2019-06-10] MEDS: Mometasone/Formoterol 120 PUFF INHALER INH SCH ×2 (08:40→18:39)
[2019-06-10] MEDS: Enoxaparin Sodium 40 MG/0.4 ML SYRINGE SC SCH (08:49)
--- NOTE | 2019-06-10 10:06 | PDOC.HOSPP ---
- Subjective Encounter Date: 06/10/19 Encounter Time: 08:30 Subjective: Patient seen and examined for wound infection. s/p Diverting colostomy. Pain controlled. No N/V. No new complaints. No overnight events - Objective Vital Signs & Weight: Vital Signs (12 hours) Temp Pulse Resp BP BP Pulse Ox 06/10/19 08:40 67 12 06/10/19 07:34 97.3 F L 67 14 105/53 L 95 06/10/19 03:58 97.4 F L 56 L 16 108/55 L 96 06/10/19 00:04 97.4 F L 60 18 111/61 100 Weight Admit Weight 211 lb Weight 211 lb 8 oz I&O: 06/09/19 06/10/19 06/11/19 06:59 06:59 06:59 Intake Total 1600 Balance 1600 Result Diagrams: 06/10/19 05:50 06/10/19 05:50 Additional Labs: Accuchecks 06/10/19 06/09/19 06/09/19 05:29 21:04 16:05 POC Glucose 143 H 123 H 80 06/09/19 11:17 POC Glucose 84 ROS - Review of Systems Respiratory: denies: cough, dry, shortness of breath, hemoptysis, SOB with excertion, pleuritic pain, sputum, wheezing, other Cardiovascular: denies: chest pain, palpitations, orthopnea, paroxysmal noc. dyspnea, edema, light headedness, other - Medication Medications: Active Medications Generic Name Dose Route Start Last Admin Trade Name Freq PRN Reason Stop Dose Admin Enoxaparin Sodium 40 mg 06/07/19 09:00 06/10/19 08:49 Lovenox SC 40 mg 0900 SNEHAL Administration Acetaminophen 1,000 mg/ Device 100 mls @ 400 mls/hr 06/09/19 23:59 06/10/19 05:22 IVPB 06/10/19 18:14 100 mls Q6HR SNEHAL Administration Lidocaine HCl 0 ml 06/07/19 18:43 06/08/19 17:12 Glydo TOP 11 ml PRN PRN Administration Wound Care Mometasone Furoate/Formoterol Fumar 2 puff 06/07/19 18:30 06/10/19 08:40 Dulera 200 Mcg/5 Mcg Inhaler INH 2 puff BID-RT SNEHAL Administration Morphine Sulfate 4 mg 08/09/19 18:06 06/10/19 08:53 Morphine SLOW IVP 4 mg Q2H PRN Administration .BREAKTHROUGH Pain - Exam NAD Neck: supple, no JVD Heart: RRR, no rubs Respiratory: CTAB, no rales Gastrointestinal: soft, normal bowel sounds Gastrointestinal - other findings: mild gen tend, colostomy + Hosp A/P (1) Wound infection Code(s): T14.8XXA - OTHER INJURY OF UNSPECIFIED BODY REGION, INITIAL ENCOUNTER; L08.9 - LOCAL INFECTION OF THE SKIN AND SUBCUTANEOUS TISSUE, UNSP Status: Acute (2) Perianal lesion Code(s): K62.9 - DISEASE OF ANUS AND RECTUM, UNSPECIFIED (3) Hypernatremia Code(s): E87.0 - HYPEROSMOLALITY AND HYPERNATREMIA Status: Acute (4) Neutropenia Code(s): D70.9 - NEUTROPENIA, UNSPECIFIED Status: Acute Qualifiers: Neutropenia type: secondary to cancer chemotherapy Qualified Code(s): D70.1 - Agranulocytosis secondary to cancer chemotherapy; T45.1X5A - Adverse effect of antineoplastic and immunosuppressive drugs, initial encounter (5) Hypokalemia Code(s): E87.6 - HYPOKALEMIA Status: Acute (6) HTN (hypertension) Code(s): I10 - ESSENTIAL (PRIMARY) HYPERTENSION Status: Chronic Qualifiers: (7) Langerhans cell histiocytoses Code(s): C96.6 - UNIFOCAL LANGERHANS-CELL HISTIOCYTOSIS (8) Obesity (BMI 30-39.9) Code(s): E66.9 - OBESITY, UNSPECIFIED (9) Other issues with previous notes - Plan DVT proph w/lovenox Cont Vanc/Zosyn s/p Diverting colostomy Ambulate Cont wound care Increase free water intake for hypernatremia 1 bag of D5 W today AM labs
--- NOTE | 2019-06-10 11:28 | PRG ---
DATE OF SERVICE: 06/10/2019 SUBJECTIVE: Mr. Marques Cowan is a 48-year-old man, who is postoperative day #1, status post laparoscopic diverting colostomy by Dr. Martin. The patient is awake and alert today. He reports adequate pain control. OBJECTIVE: VITAL SIGNS: Include blood pressure of 105/53, pulse 67, respiratory rate is 14, temperature is 97.3 degrees Fahrenheit, oxygen saturation 95% on room air. Urinary output is adequate for the patient's age. HEART: Reveals regular rate and rhythm. No murmurs or gallops auscultated. LUNGS: Clear to auscultation bilaterally. Breathing, regular and nonlabored. ABDOMEN: Soft and nondistended. Ostomy is viable and edematous. No stool or gas output at the moment. He has no peritoneal signs on examination. LABORATORY FINDINGS: Include a CBC with 9000 white blood cells, hemoglobin and hematocrit are 10.1 and 33.2 respectively. Platelet count is 340,000. Metabolic profile; sodium 150, potassium 4.1, chloride is 118, bicarb 22, BUN 5, creatinine is 1.32, glucose 165. IMPRESSION: 1. Postoperative day #1, status post laparoscopic diverting colostomy. 2. Acute hypernatremia. PLAN: 1. Increase free water intake. 2. Increase activity per Physical and Occupational Therapy. 3. The patient is otherwise hemodynamically stable. Job ID: [id number]
[2019-06-10] MEDS: Dextrose 5% in Water 1,000 ML IV SCH ×2 (13:56→21:37)
[2019-06-11 05:38] LABS: Anion Gap 14 mmol/L (10-20); BUN (Urea Nitrogen) 7 mg/dL (8.9-20.6); Calc. Creatinine Clearance 95 mL/min (70-130); Calcium 8.4 mg/dL (7.8-10.44); Carbon Dioxide 23 mmol/L (22-29); Chloride 108 mmol/L (98-107); Estimated GFR-MDRD 59; Glucose 105 mg/dL (70-105); Potassium 3.7 mmol/L (3.5-5.1); Sodium 141 mmol/L (136-145)
[2019-06-11] MEDS: Acetaminophen 500 MG TAB PO PRN (07:26)
[2019-06-11] MEDS: traMADol HCl 50 MG TAB PO PRN ×2 (07:26→21:43)
[2019-06-11] MEDS: Enoxaparin Sodium 40 MG/0.4 ML SYRINGE SC SCH (07:29)
[2019-06-11] MEDS: Mometasone/Formoterol 120 PUFF INHALER INH SCH ×2 (08:35→18:59)
--- NOTE | 2019-06-11 09:17 | PRG ---
DATE OF SERVICE: 06/11/2019 SUBJECTIVE: The patient is currently on the Oncology floor as overflow from surgery. He is postop day 1, status post laparoscopic diverting colostomy by Dr. Martin. He has been doing well. His pain is controlled. He is tolerating a diet. OBJECTIVE: VITAL SIGNS: Stable. ABDOMEN: Soft, nondistended. His ostomy bag has air and some liquid stool in it. The ostomy itself looks viable, albeit somewhat swollen. ASSESSMENT: Postoperative day 1, status post laparoscopic diverting colostomy. PLAN: Plan will be to continue observation of his ostomy output. Continue the remainder of his plan per the Primary Medicine team. Job ID: [id number]
[2019-06-11] MEDS: Morphine 4 MG/ML VIAL SLOW IVP PRN (12:10)
--- NOTE | 2019-06-11 15:20 | PDOC.GSPN ---
Surgery Progress Note: Subj - Subjective Narrative: Mr. Mohan is a 48 year old male who is day 2 s/p diverting colostomy. He is currently doing well and reports some abdominal pain, but states that his pain is controlled. He denies any nausea and is tolerating his diet. Surgery Progress Note: Obj - Vital signs Vital signs: Vital Signs - Most Recent Temp Pulse Resp BP Pulse Ox 97.5 F L 62 12 112/56 L 96 06/11/19 12:00 06/11/19 08:35 06/11/19 08:35 06/11/19 07:44 06/11/19 07:44 - Physical Exam General: no distress, no pain Cardiovascular: regular rate and rhythm Respiratory: clear to auscultation Abdomen: soft, non tender, nondistended, positive bowel sounds (NABS) Wound: ostomy/colostomy (viable, but no output at this time) Surgery Progress Note: Results - Labs Result Diagrams: 06/10/19 05:50 06/11/19 04:59 Surgery Progress Note: A/P - Problem (1) S/P colostomy Current Visit: Yes Code(s): Z93.3 - COLOSTOMY STATUS Status: Acute Assessment and Plan: Patient is day 2 s/p laparoscopic diverting colostomy. He is currently stable and without post-operative complication. Plan: 1. Continue with PT/OT to increase activity. 2. Continue to monitor ostomy for stool output. 3. Continue with medicine plans for other comorbidities. This patient was seen by myself and Dr. Nunez together and this plan was discussed with Dr. Nunez.
--- NOTE | 2019-06-11 16:06 | PDOC.HOSPP ---
- Subjective Encounter Date: 06/11/19 Encounter Time: 15:30 Subjective: Patient seen and examined for wound infection. No fever/N/V. Tolerating PO. No new complaints. No overnight events - Objective Vital Signs & Weight: Vital Signs (12 hours) Temp Pulse Resp BP Pulse Ox 06/11/19 12:00 97.5 F L 06/11/19 08:35 62 12 06/11/19 07:44 97.6 F 60 18 112/56 L 96 Weight Admit Weight 211 lb Weight 211 lb 8 oz Result Diagrams: 06/10/19 05:50 06/11/19 04:59 Additional Labs: Accuchecks 06/11/19 06/10/19 06/10/19 12:00 20:42 16:41 POC Glucose 112 H 147 H 149 H ROS - Review of Systems Respiratory: denies: cough, dry, shortness of breath, hemoptysis, SOB with excertion, pleuritic pain, sputum, wheezing, other Cardiovascular: denies: chest pain, palpitations, orthopnea, paroxysmal noc. dyspnea, edema, light headedness, other Gastrointestinal: reports: abdominal pain (mild - generalized). denies: nausea , vomitting, diarrhea, constipation, melena, hematochezia, other - Medication Medications: Active Medications Generic Name Dose Route Start Last Admin Trade Name Freq PRN Reason Stop Dose Admin Acetaminophen 1,000 mg 06/10/19 23:59 06/11/19 07:26 Tylenol PO 1,000 mg Q6H PRN Administration Moderate to Severe Pain (6-10) Enoxaparin Sodium 40 mg 06/07/19 09:00 06/11/19 07:29 Lovenox SC 40 mg 0900 SNEHAL Administration Lidocaine HCl 0 ml 06/07/19 18:43 06/08/19 17:12 Glydo TOP 11 ml PRN PRN Administration Wound Care Mometasone Furoate/Formoterol Fumar 2 puff 06/07/19 18:30 06/11/19 08:35 Dulera 200 Mcg/5 Mcg Inhaler INH 2 puff BID-RT SNEHAL Administration Morphine Sulfate 4 mg 06/09/19 18:06 06/11/19 12:10 Morphine SLOW IVP 4 mg Q2H PRN Administration .BREAKTHROUGH Pain Tramadol HCl 50 mg 06/09/19 18:14 06/11/19 07:26 Ultram PO 50 mg Q6H PRN Administration Pain 1-5 - Exam NAD Heart: RRR, no rubs Respiratory: CTAB, no rales Gastrointestinal: soft, non-tender, normal bowel sounds Gastrointestinal - other findings: Colostomy with liqd stool + Extremities: no edema Hosp A/P (1) Wound infection Code(s): T14.8XXA - OTHER INJURY OF UNSPECIFIED BODY REGION, INITIAL ENCOUNTER; L08.9 - LOCAL INFECTION OF THE SKIN AND SUBCUTANEOUS TISSUE, UNSP Status: Acute (2) Perianal lesion Code(s): K62.9 - DISEASE OF ANUS AND RECTUM, UNSPECIFIED (3) Hypernatremia Code(s): E87.0 - HYPEROSMOLALITY AND HYPERNATREMIA Status: Acute (4) Neutropenia Code(s): D70.9 - NEUTROPENIA, UNSPECIFIED Status: Acute Qualifiers: Neutropenia type: secondary to cancer chemotherapy Qualified Code(s): D70.1 - Agranulocytosis secondary to cancer chemotherapy; T45.1X5A - Adverse effect of antineoplastic and immunosuppressive drugs, initial encounter (5) Hypokalemia Code(s): E87.6 - HYPOKALEMIA Status: Acute (6) HTN (hypertension) Code(s): I10 - ESSENTIAL (PRIMARY) HYPERTENSION Status: Chronic Qualifiers: (7) Langerhans cell histiocytoses Code(s): C96.6 - UNIFOCAL LANGERHANS-CELL HISTIOCYTOSIS (8) Obesity (BMI 30-39.9) Code(s): E66.9 - OBESITY, UNSPECIFIED (9) Other issues with previous notes - Plan s/p Diverting colostomy Cont IV Atbx (Vanc/Zosyn) Monitor Vancomycin level Cont wound care Hypernatremia improving with free water intake DC home if ok with Surg
--- NOTE | 2019-06-12 02:34 | PRG ---
DATE OF SERVICE: SUBJECTIVE: Patient is currently on the Oncology floor. He is status post diverting colostomy. This is postop day 2. He is denying any pain. He is tolerating his diet and he was actually sitting in a chair at bedside working with the nurse to get back into bed. OBJECTIVE: VITAL SIGNS: Stable. Patient is afebrile. ABDOMEN: The patient's abdomen is nontender with active bowel sounds. There is air and liquid stool in his colostomy site. The ostomy appears to be functioning properly at this time. PLAN: Plan will be to continue mobilization and may be discharged from our standpoint in the next 24 hours. Job ID: [id number]
[2019-06-12] MEDS: Mometasone/Formoterol 120 PUFF INHALER INH SCH ×2 (07:37→19:30)
[2019-06-12] MEDS: Enoxaparin Sodium 40 MG/0.4 ML SYRINGE SC SCH (08:26)
[2019-06-12] MEDS: Acetaminophen 500 MG TAB PO PRN ×2 (08:26→18:48)
[2019-06-12] MEDS: traMADol HCl 50 MG TAB PO PRN ×2 (08:26→18:48)
--- NOTE | 2019-06-12 13:18 | PDOC.HOSPP ---
- Subjective Encounter Date: 06/12/19 (f/u wound infection) Encounter Time: 11:00 Subjective: Pt without complaints. Reports he is ambulating without difficulty, denies any n/v, some abd pain that is controlled with meds. Denies any other concerns. - Objective Vital Signs & Weight: Vital Signs (12 hours) Temp Pulse Resp BP Pulse Ox 06/12/19 07:47 97.6 F 61 16 130/65 99 06/12/19 07:37 65 16 98 Weight Admit Weight 211 lb Weight 211 lb 8 oz Result Diagrams: 06/10/19 05:50 06/11/19 04:59 Additional Labs: Accuchecks 06/12/19 06/11/19 06/11/19 06:05 19:55 16:28 POC Glucose 83 90 140 H ROS - Medication Medications: Active Medications Generic Name Dose Route Start Last Admin Trade Name Freq PRN Reason Stop Dose Admin Acetaminophen 1,000 mg 06/10/19 23:59 06/12/19 08:26 Tylenol PO 1,000 mg Q6H PRN Administration Moderate to Severe Pain (6-10) Enoxaparin Sodium 40 mg 06/07/19 09:00 06/12/19 08:26 Lovenox SC 40 mg 0900 SNEHAL Administration Lidocaine HCl 0 ml 06/07/19 18:43 06/08/19 17:12 Glydo TOP 11 ml PRN PRN Administration Wound Care Mometasone Furoate/Formoterol Fumar 2 puff 06/07/19 18:30 06/12/19 07:37 Dulera 200 Mcg/5 Mcg Inhaler INH 2 puff BID-RT SNEHAL Administration Morphine Sulfate 4 mg 06/09/19 18:06 06/11/19 12:10 Morphine SLOW IVP 4 mg Q2H PRN Administration .BREAKTHROUGH Pain Tramadol HCl 50 mg 06/09/19 18:14 06/12/19 08:26 Ultram PO 50 mg Q6H PRN Administration Pain 1-5 - Exam NAD Heart: RRR, no murmur Respiratory: CTAB, no wheezes, no rales, no ronchi Gastrointestinal: soft, normal bowel sounds Extremities: no cyanosis, no clubbing, no edema Musculoskeletal: normal tone, normal strength Psychiatric: normal affect Hosp A/P (1) Wound infection Code(s): T14.8XXA - OTHER INJURY OF UNSPECIFIED BODY REGION, INITIAL ENCOUNTER; L08.9 - LOCAL INFECTION OF THE SKIN AND SUBCUTANEOUS TISSUE, UNSP Status: Acute - Plan Impression: 1. Wound infection and perianal lesion s/p diverting colostomy 2. Anemia 3. Langerhans Cell Histiocytosis 4. Diabetes mellitus type 2 5. Asthma Plan: Appreciate Gen Surgery evaluation - ostomy needs further evaluation to be performed by Dr. Reid today - wound care/ostomy care appt for Jun 15 DM - controlled - continue current tx Other medical problems - continue current meds/orders dvt prophy - ambulatory gi prophy - not indicated code status full reviewed plan of care with patient/ through manager software development prior to General Surgery evaluation today when I thought pt was to be discharged. The discharge plan is on hold pending above.
--- NOTE | 2019-06-12 21:02 | PRG ---
DATE OF SERVICE: 06/12/2019 SUBJECTIVE: Mr. Mohan is feeling okay. He denies any nausea. He is still having abdominal pain across the central abdomen since his surgery. This has been unchanged since yesterday. He has had some liquid stool from his colostomy. OBJECTIVE: VITAL SIGNS: Okay. ABDOMEN: Soft and nondistended. He has some minimal lisbeth-incisional pain. No rigidity, rebound, or guarding. Laparoscopic incisions are well healed. The colostomy is very swollen, edematous, and dark in coloration. However, the underlying submucosa appears to be viable and the mucosa deeper in the colostomy is pinker in color. There is some bleeding from the mucosa along the edges, which appear to be healing appropriately. ASSESSMENT AND PLAN: Status post colostomy to assist with wound healing. He does have some ischemia of the colostomy, but this appears to be confined to the mucosa. The deeper tissues seemed to be viable and the colostomy is patent and functioning. I will see how this looks tomorrow. If the appearance is worsening, he may require revision. Otherwise, he will likely be ready for discharge soon. Job ID: [id number]
[2019-06-13] MEDS: Morphine 4 MG/ML VIAL SLOW IVP PRN (02:57)
[2019-06-13 04:41] LABS: Anion Gap 12 mmol/L (10-20); BUN (Urea Nitrogen) 10 mg/dL (8.9-20.6); Calc. Creatinine Clearance 91 mL/min (70-130); Calcium 8.6 mg/dL (7.8-10.44); Carbon Dioxide 26 mmol/L (22-29); Chloride 110 mmol/L (98-107); Estimated GFR-MDRD 56; Glucose 90 mg/dL (70-105); Potassium 3.2 mmol/L (3.5-5.1); Sodium 145 mmol/L (136-145)
[2019-06-13 05:10] LABS: #Eosinphils 0.1 thou/uL (0.0-0.7); #Lymphocytes 2.1 thou/uL (1.20-3.40); #Monocytes 0.8 thou/uL (0.11-0.59); #Neutrophils 5.9 thou/uL (1.40-6.50); %Basophils 0.3 % (0.0-1.0); %Eosinophils 0.9 % (0.0-10.0); %Lymphocytes 23.6 % (21.0-51.0); %Monocytes 9.2 % (0.0-10.0); Hemoglobin 8.5 g/dL (14.0-18.0); Mean Corpuscular Hemoglobin 27.1 pg (27.0-31.0); Mean Corpuscular Volume 84.7 fL (78.0-98.0); Mean Platelet Volume 9.9 fL (7.4-10.4); Platelet Count 184 thou/uL (130-400); Platelet Morphology Comment Appears Adequate; RBC Distribution Width 19.1 % (11.5-14.5); Red Blood Cell (RBC) Count 3.14 mill/uL (4.70-6.10); White Blood Cell (WBC) Count 8.9 thou/uL (4.8-10.8)
[2019-06-13] MEDS: Mometasone/Formoterol 120 PUFF INHALER INH SCH ×2 (06:33→19:42)
[2019-06-13] MEDS ORDERED: Potassium Chloride 20 MEQ TAB PO SCH (07:45)
[2019-06-13] MEDS: Morphine 2 MG/ML SYRINGE SLOW IVP PRN ×2 (08:45→16:00)
[2019-06-13 10:13] LABS: Hemoglobin 9.1 g/dL (14.0-18.0)
--- NOTE | 2019-06-13 10:36 | PDOC.HOSPP ---
- Subjective Encounter Date: 06/13/19 (f/u DM) Encounter Time: 10:34 Subjective: Pt c/o abd pain - states it is the same and rates it 8/10 in severity. Denies n /v. Denies any other changes or concerns. - Objective Vital Signs & Weight: Vital Signs (12 hours) Temp Pulse Resp BP Pulse Ox 06/13/19 08:00 98.4 F 98 18 131/74 95 06/13/19 06:33 98 16 95 Weight Admit Weight 211 lb Weight 211 lb 8 oz I&O: 06/12/19 06/13/19 06/14/19 06:59 06:59 06:59 Output Total 150 Balance -150 Result Diagrams: 06/13/19 09:35 06/13/19 04:06 Additional Labs: Accuchecks 06/12/19 06/12/19 06/12/19 20:21 16:17 12:05 POC Glucose 104 108 76 ROS - Medication Medications: Active Medications Generic Name Dose Route Start Last Admin Trade Name Freq PRN Reason Stop Dose Admin Acetaminophen 1,000 mg 06/10/19 23:59 06/12/19 18:48 Tylenol PO 1,000 mg Q6H PRN Administration Moderate to Severe Pain (6-10) Lidocaine HCl 0 ml 06/07/19 18:43 06/08/19 17:12 Glydo TOP 11 ml PRN PRN Administration Wound Care Mometasone Furoate/Formoterol Fumar 2 puff 06/07/19 18:30 06/13/19 06:33 Dulera 200 Mcg/5 Mcg Inhaler INH 2 puff BID-RT SNEHAL Administration Morphine Sulfate 4 mg 06/09/19 18:06 06/13/19 02:57 Morphine SLOW IVP 4 mg Q2H PRN Administration .BREAKTHROUGH Pain Morphine Sulfate 2 mg 06/09/19 18:09 06/13/19 08:45 Morphine SLOW IVP 2 mg Q2H PRN Administration Moderate to Severe Pain (4-10) Tramadol HCl 50 mg 06/09/19 18:14 06/12/19 18:48 Ultram PO 50 mg Q6H PRN Administration Pain 1-5 - Exam NAD Heart: RRR, no murmur Respiratory: CTAB, no wheezes Gastrointestinal: soft, non-distended, normal bowel sounds Extremities: no cyanosis, no clubbing, no edema Neurological: no focal deficits Psychiatric: normal affect Hosp A/P (1) Wound infection Code(s): T14.8XXA - OTHER INJURY OF UNSPECIFIED BODY REGION, INITIAL ENCOUNTER; L08.9 - LOCAL INFECTION OF THE SKIN AND SUBCUTANEOUS TISSUE, UNSP Status: Acute - Plan Impression: 1. Wound infection and perianal lesion s/p diverting colostomy 2. Anemia 3. Langerhans Cell Histiocytosis 4. Diabetes mellitus type 2 5. Asthma 6. Hypokalemia Plan: Appreciate Gen Surgery evaluation - to the OR today for colostomy revision. Continue pain management prn. DM - controlled - continue current tx Other medical problems - continue current meds/orders Anemia - worse today, uncertain if related to drawing this from the port - repeat ordered. Replace potassium dvt prophy - ambulatory gi prophy - not indicated code status full reviewed plan of care with patient through manufacturing area manager, no questions or further needs at end of evaluation
[2019-06-13] MEDS: Sodium Chloride 0.9% 1,000 ML IV SCH ×2 (11:31→19:30)
[2019-06-13] MEDS ORDERED: cefOXitin 2 GM VIAL ONE (18:14)
[2019-06-13] MEDS ORDERED: Sodium Chloride 0.9% 100 ML ONE (18:15)
[2019-06-13] MEDS ORDERED: Bupivacaine/Epinephrine 0.25% 30 ML VIAL ONE (18:24)
[2019-06-13] MEDS ORDERED: Fentanyl 100 MCG/2 ML VIAL ONE ×2 (18:25→20:38)
[2019-06-13] MEDS ORDERED: HYDROmorphone 2 MG/ML VIAL ONE (18:25)
[2019-06-13] MEDS ORDERED: Lidocaine 1% PF 5 ML VIAL ONE (19:00)
[2019-06-13] MEDS ORDERED: PHENYLEPHRINE-NS 100 MCG/ML 10 ML SYRINGE ONE (19:00)
[2019-06-13] MEDS ORDERED: Ondansetron PF 4 MG/2 ML Vial ONE (19:00)
[2019-06-13] MEDS ORDERED: PROPOFOL 200 MG/20 ML VIAL ONE (19:00)
[2019-06-13] MEDS ORDERED: Glycopyrrolate 0.2 MG/ML 5 ML SYRINGE ONE (19:00)
[2019-06-13] MEDS ORDERED: ePHEDrine 50 MG/ML VIAL ONE (19:00)
[2019-06-13] MEDS ORDERED: Rocuronium Bromide 10 MG/ML (10ML VIAL) ONE (19:00)
[2019-06-13] MEDS ORDERED: HYDROmorphone 2 MG/ML VIAL SLOW IVP PRN (20:00)
[2019-06-13] MEDS ORDERED: Promethazine HCl 25 MG/ML VIAL SLOW IVP PRN (20:00)
[2019-06-13] MEDS ORDERED: Ondansetron HCl/PF 4 MG/2 ML Vial IVP PRN (20:00)
[2019-06-13] MEDS ORDERED: PACU-Morphine 4MG/ML VIAL SLOW IVP PRN (20:00)
[2019-06-13] MEDS ORDERED: Promethazine HCl 25 MG/ML VIAL IM PRN (20:00)
[2019-06-14] MEDS: Morphine 4 MG/ML VIAL SLOW IVP PRN (01:11)
--- NOTE | 2019-06-14 03:44 | OP ---
DATE OF PROCEDURE: 06/13/2019 PROCEDURE: Revision of colostomy. PREOPERATIVE DIAGNOSIS: Necrotic colostomy. POSTOPERATIVE DIAGNOSIS: Necrotic colostomy. HISTORY OF PRESENT ILLNESS: Mr. Marques Cowan is a 48-year-old man with nonhealing sacral wound, who underwent a laparoscopic colostomy last week by Dr. Martin. I was concerned by the appearance of his colostomy yesterday. It appeared very congested and purplish, but I felt that the underlying submucosa might be viable. On examination this morning, however, the colostomy appeared worse with a foul odor and grayish look to it, and it appeared that the outer part of the colostomy was completely necrotic. Recommendation was made to proceed to the operating room for colostomy revision. The patient understands that if additional viable colon can be pulled up through the same colostomy incision, this will be done, but if there is not enough healthy colon to pull out through this location, that laparoscopy or anything reciting the colostomy might be necessary. DESCRIPTION OF PROCEDURE: After informed consent was obtained and appropriate preoperative antibiotics were administered, the patient was taken to the operating room. He was placed in supine position and anesthesia was administered. He was prepped and draped in a standard sterile fashion and the sutures securing the necrotic colostomy to the skin were cut. The colon was mobilized and drawn out through the colostomy incision and the colon approximately 3 to 4 cm below the level of the current colostomy was viable. This was able to be mobilized out through the present incision adequately to allow creation of a new colostomy. The necrotic segment was resected using electrocautery and a new colostomy created by securing the full-thickness of the colon wall to a Lembert suture a couple centimeters proximal and then to the dermis in the 4 quadrants circumferentially and then securing the full-thickness of the colon edge to the dermis at intervals between these sutures. The colostomy was digitally interrogated and patent through the fascia and appeared pink and healthy. The colostomy appliance was placed and the patient was extubated and taken to Recovery in good condition. ESTIMATED BLOOD LOSS: Minimal. COMPLICATIONS: There were no complications. SPECIMEN: Necrotic colostomy. Job ID: [id number]
[2019-06-14 05:54] LABS: #Eosinphils 0.3 thou/uL (0.0-0.7); #Lymphocytes 1.9 thou/uL (1.20-3.40); #Monocytes 0.9 thou/uL (0.11-0.59); %Basophils 0.4 % (0.0-1.0); %Eosinophils 2.7 % (0.0-10.0); %Lymphocytes 15.5 % (21.0-51.0); %Monocytes 7.2 % (0.0-10.0); %Neutrophils 74.2 % (42.0-75.0); Hemoglobin 9.2 g/dL (14.0-18.0); Mean Corpuscular HGB CONC 30.6 g/dL (32.0-36.0); Mean Corpuscular Hemoglobin 26.3 pg (27.0-31.0); Mean Platelet Volume 9.7 fL (7.4-10.4); Platelet Count 208 thou/uL (130-400); RBC Distribution Width 19.9 % (11.5-14.5); Red Blood Cell (RBC) Count 3.48 mill/uL (4.70-6.10); White Blood Cell (WBC) Count 12.1 thou/uL (4.8-10.8)
[2019-06-14 06:26] LABS: Anion Gap 15 mmol/L (10-20); BUN (Urea Nitrogen) 11 mg/dL (8.9-20.6); Calc. Creatinine Clearance 67 mL/min (70-130); Calcium 9.4 mg/dL (7.8-10.44); Carbon Dioxide 27 mmol/L (22-29); Chloride 117 mmol/L (98-107); Estimated GFR-MDRD 39; Glucose 117 mg/dL (70-105); Potassium 3.7 mmol/L (3.5-5.1); Sodium 155 mmol/L (136-145)
[2019-06-14] MEDS ORDERED: Dextrose 5% in Water 1,000 ML IV SCH ×2 (06:45→15:09)
[2019-06-14] MEDS: Mometasone/Formoterol 120 PUFF INHALER INH SCH ×2 (07:55→18:59)
--- NOTE | 2019-06-14 07:58 | PDOC.HOSPP ---
- Subjective Encounter Date: 06/14/19 (f/u SYLVAIN) Encounter Time: 07:56 Subjective: 48 y/o male admitted for non-healing perianal wounds and underwent diverting colotomy. 2 days ago concern about ostomy and underwent revision yesterday with Dr. Reid. Wound care monitoring the gluteal/anal wounds Pt reports pain is about the same. Denies any n/v. Denies any chest pain or difficulty breathing - Objective Vital Signs & Weight: Vital Signs (12 hours) Temp Pulse Resp BP BP Pulse Ox 06/14/19 03:54 99.7 F H 92 20 114/67 97 06/13/19 23:37 97.7 F 72 16 105/54 L 93 L 06/13/19 21:00 98.6 F 86 20 136/79 95 Weight Admit Weight 211 lb Weight 211 lb 8 oz I&O: 06/13/19 06/14/19 06/15/19 06:59 06:59 06:59 Intake Total 600 Balance 600 Result Diagrams: 06/14/19 05:42 06/14/19 19:33 Additional Labs: Accuchecks 06/14/19 06/13/19 06/13/19 05:44 21:55 16:06 POC Glucose 129 H 126 H 104 06/13/19 11:37 POC Glucose 98 ROS - Medication Medications: Active Medications Generic Name Dose Route Start Last Admin Trade Name Freq PRN Reason Stop Dose Admin Acetaminophen 1,000 mg 06/10/19 23:59 06/12/19 18:48 Tylenol PO 1,000 mg Q6H PRN Administration Moderate to Severe Pain (6-10) Lidocaine HCl 0 ml 06/07/19 18:43 06/08/19 17:12 Glydo TOP 11 ml PRN PRN Administration Wound Care Mometasone Furoate/Formoterol Fumar 2 puff 06/07/19 18:30 06/13/19 19:42 Dulera 200 Mcg/5 Mcg Inhaler INH Not Given BID-RT SNEHAL Morphine Sulfate 4 mg 06/09/19 18:06 06/14/19 01:11 Morphine SLOW IVP 4 mg Q2H PRN Administration .BREAKTHROUGH Pain Morphine Sulfate 2 mg 06/09/19 18:09 06/13/19 16:00 Morphine SLOW IVP 2 mg Q2H PRN Administration Moderate to Severe Pain (4-10) Tramadol HCl 50 mg 06/09/19 18:14 06/12/19 18:48 Ultram PO 50 mg Q6H PRN Administration Pain 1-5 - Exam NAD Heart: RRR, no murmur, no gallops, no rubs Respiratory: CTAB, no wheezes, no rales, no ronchi Gastrointestinal: soft Gastrointestinal - other findings: hypoactive bowel sounds, scant serosanguinous fluid in ostomy Extremities: no cyanosis, no clubbing, no edema Psychiatric: normal affect Hosp A/P (1) SYLVAIN (acute kidney injury) Code(s): N17.9 - ACUTE KIDNEY FAILURE, UNSPECIFIED Status: Acute (2) Wound infection Code(s): T14.8XXA - OTHER INJURY OF UNSPECIFIED BODY REGION, INITIAL ENCOUNTER; L08.9 - LOCAL INFECTION OF THE SKIN AND SUBCUTANEOUS TISSUE, UNSP Status: Acute (3) Hypernatremia Code(s): E87.0 - HYPEROSMOLALITY AND HYPERNATREMIA Status: Acute (4) Asthma Code(s): J45.909 - UNSPECIFIED ASTHMA, UNCOMPLICATED Status: Chronic (5) Obesity (BMI 30-39.9) Code(s): E66.9 - OBESITY, UNSPECIFIED Status: Chronic (6) Diabetes mellitus Code(s): E11.9 - TYPE 2 DIABETES MELLITUS WITHOUT COMPLICATIONS Status: Chronic Qualifiers: Diabetes mellitus type: type 2 Diabetes mellitus long-term insulin use: without long-term use (7) Anemia Code(s): D64.9 - ANEMIA, UNSPECIFIED Status: Chronic Qualifiers: Anemia type: unspecified type Qualified Code(s): D64.9 - Anemia, unspecified - Plan \ Plan: SYLVAIN likely pre-renal and associated with NPO status yesterday prior to surgery. Change fluids to D5W, recheck this afternoon, obtain UA and urine electrolytes and renal ultrasound. If no improvement in this or the hypernatremia, consider Nephrology consult. Appreciate Gen Surgery evaluation - s/p revision yesterday DM - controlled - continue current tx - anticipate elevation of blood sugars with D5W Other medical problems - continue current meds/orders dvt prophy - ambulatory gi prophy - not indicated code status full reviewed plan of care with patient/ through firewall security engineer, no questions or further needs at end of evaluation Reviewed urine - no proteinuria, FeNa 2.7, and sodium now 151 with creatinine the same at 1.8. Placed consult for nephrology given the known langhans cell histiocytosis in the context of surgery yesterday, DM, SYLVAIN with hypernatremia. Will lower IVF rate to 75 ml/hr to avoid too rapid of sodium correction
--- NOTE | 2019-06-14 08:06 | ULT ---
RENAL ULTRASOUND: HISTORY: Acute kidney insufficiency. FINDINGS: The right kidney measures 10.2 cm length. The left kidney measures 11.5 cm. No hydronephrosis. Cor tical echogenicity appears normally maintained. The urinary bladder is distended and unremarkable. Incidentally noted is an echogenic liver suggesting fatty infiltration. Also incidentally noted is a mildly prominent spleen measured at 14 cm. IMPRESSION: 1. Unremarkable renal ultrasound. 2. Evidence of hepatic steatosis and borderline splenomegaly. POS: [facility]
[2019-06-14] MEDS: Morphine 2 MG/ML SYRINGE SLOW IVP PRN ×2 (08:11→17:02)
[2019-06-14] MEDS: Sodium Chloride 0.9% 1,000 ML IV SCH (08:12)
[2019-06-14 08:27] LABS: Bilirubin Negative (Negative); Blood, Urine Negative (Negative); Clarity Clear (Clear); Glucose, Urine (Dipstick) Normal (Negative); Leukocyte Negative Leu/uL (Negative); Nitrite Negative (Negative); Protein, Urine (Dipstick) Negative (Neg-Trace); RBC/HPF 0-3 HPF (0-3); Squamous Epithelial None Seen HPF (0-3); Urobilinogen Normal mg/dL (Less than 2); WBC/HPF 0-3 HPF (0-3)
[2019-06-14 08:28] LABS: Bacteria/HPF 1+ HPF (None Seen)
[2019-06-14 08:31] LABS: Urine Culture Reflex No No
[2019-06-14 11:59] LABS: Creatinine, Urine Less than 20.00 mg/dL (63-166); Sodium, Urine 46 mmol/L (Not Available)
[2019-06-14 14:32] LABS: Anion Gap 14 mmol/L (10-20); BUN (Urea Nitrogen) 10 mg/dL (8.9-20.6); Calc. Creatinine Clearance 69 mL/min (70-130); Calcium 9.1 mg/dL (7.8-10.44); Carbon Dioxide 30 mmol/L (22-29); Chloride 111 mmol/L (98-107); Estimated GFR-MDRD 41; Glucose 106 mg/dL (70-105); Potassium 3.5 mmol/L (3.5-5.1); Sodium 151 mmol/L (136-145)
[2019-06-14] MEDS ORDERED: traMADol HCl 50 MG TAB PO PRN (17:01)
--- NOTE | 2019-06-14 17:35 | PDOC.GSPN ---
Surgery Progress Note: Subj - Subjective Patient reports: no new complaints Narrative: Patient feels okay. No nausea or vomiting. No flatus or stool through the ostomy since his operation. The colostomy looks healthy and pink but there is no gas or stool in the bag. I expect that it will began functioning again soon, after which he can be discharged. Surgery Progress Note: Obj - Vital signs Vital signs: Vital Signs - Most Recent Temp Pulse Resp BP Pulse Ox 96.9 F L 80 18 114/62 94 L 06/14/19 17:03 06/14/19 17:03 06/14/19 17:03 06/14/19 17:03 06/14/19 08:00 Surgery Progress Note: Results - Labs Result Diagrams: 06/14/19 05:42 06/14/19 13:55 Lab results: Laboratory Results - last 24 hr 06/14/19 06/14/19 06/14/19 05:42 05:42 05:44 WBC 12.1 H RBC 3.48 L Hgb 9.2 L Hct 29.9 L MCV 86.0 MCH 26.3 L MCHC 30.6 L RDW 19.9 H Plt Count 208 MPV 9.7 Neutrophils % 74.2 Lymphocytes % 15.5 L Monocytes % 7.2 Eosinophils % 2.7 Basophils % 0.4 Neutrophils # 9.0 H Lymphocytes # 1.9 Monocytes # 0.9 H Eosinophils # 0.3 Basophils # 0.0 Sodium 155 H Potassium 3.7 Chloride 117 H Carbon Dioxide 27 Anion Gap 15 BUN 11 Creatinine 1.86 H Estimated GFR (MDRD) 39 Glucose 117 H POC Glucose 129 H Calcium 9.4 Urine Color Urine Clarity Urine pH Ur Specific Pickrell Urine Protein Urine Glucose (UA) Urine Ketones Urine Blood Urine Nitrite Urine Bilirubin Urine Urobilinogen Ur Leukocyte Esterase Urine RBC Urine WBC Ur Squamous Epith Cells Urine Bacteria Urine Culture Reflexed Urine Creatinine Urine Sodium 06/14/19 06/14/19 06/14/19 08:10 10:55 11:07 WBC RBC Hgb Hct MCV MCH MCHC RDW Plt Count MPV Neutrophils % Lymphocytes % Monocytes % Eosinophils % Basophils % Neutrophils # Lymphocytes # Monocytes # Eosinophils # Basophils # Sodium Potassium Chloride Carbon Dioxide Anion Gap BUN Creatinine Estimated GFR (MDRD) Glucose POC Glucose 94 Calcium Urine Color Colorless Urine Clarity Clear Urine pH 6.5 Ur Specific Pickrell 1.003 Urine Protein Negative Urine Glucose (UA) Normal Urine Ketones Negative Urine Blood Negative Urine Nitrite Negative Urine Bilirubin Negative Urine Urobilinogen Normal Ur Leukocyte Esterase Negative Urine RBC 0-3 Urine WBC 0-3 Ur Squamous Epith Cells None Seen Urine Bacteria 1+ Urine Culture Reflexed No Urine Creatinine Less than 20.00 L Urine Sodium 46 06/14/19 06/14/19 13:55 16:27 WBC RBC Hgb Hct MCV MCH MCHC RDW Plt Count MPV Neutrophils % Lymphocytes % Monocytes % Eosinophils % Basophils % Neutrophils # Lymphocytes # Monocytes # Eosinophils # Basophils # Sodium 151 H Potassium 3.5 Chloride 111 H Carbon Dioxide 30 H Anion Gap 14 BUN 10 Creatinine 1.80 H Estimated GFR (MDRD) 41 Glucose 106 H POC Glucose 99 Calcium 9.1 Urine Color Urine Clarity Urine pH Ur Specific Pickrell Urine Protein Urine Glucose (UA) Urine Ketones Urine Blood Urine Nitrite Urine Bilirubin Urine Urobilinogen Ur Leukocyte Esterase Urine RBC Urine WBC Ur Squamous Epith Cells Urine Bacteria Urine Culture Reflexed Urine Creatinine Urine Sodium
[2019-06-14 19:57] LABS: Anion Gap 14 mmol/L (10-20); BUN (Urea Nitrogen) 10 mg/dL (8.9-20.6); Calc. Creatinine Clearance 70 mL/min (70-130); Calcium 8.9 mg/dL (7.8-10.44); Carbon Dioxide 27 mmol/L (22-29); Chloride 109 mmol/L (98-107); Estimated GFR-MDRD 41; Glucose 127 mg/dL (70-105); Potassium 3.4 mmol/L (3.5-5.1); Sodium 147 mmol/L (136-145)
[2019-06-14] MEDS: Dextrose 5% in Water 1,000 ML IV SCH (22:35)
--- NOTE | 2019-06-14 22:47 | CON ---
DATE OF CONSULTATION: REASON FOR CONSULTATION: Hypernatremia and acute kidney injury. HISTORY OF PRESENT ILLNESS: This is a 48-year-old gentleman with a baseline creatinine of 1.3 on June 11, increased to 1.8 today. The patient has been on ibuprofen. The patient has developed hypernatremia. His sodium is increased to 155 from yesterday. The patient denies any diarrhea, vomiting, nausea or chest pain. The patient does have a colostomy. PAST MEDICAL HISTORY: Significant for hypertension, diabetes mellitus, obesity, history of steatohepatitis, history of colostomy, history of asthma, history of Langerhans histiocytosis, wedge biopsy of the lung, history of necrotic colostomy. SOCIAL HISTORY: No alcohol or drug use. FAMILY HISTORY: Negative for ESRD. ALLERGIES: REVIEWED. HOME MEDICATIONS: List reviewed. Hospital medications list reviewed. REVIEW OF SYSTEMS: A 15-point review of system was performed negative except for noted above. A 12-point review of systems was performed and was negative except for positives noted above. GENERAL: HEAD: NECK: No swelling or lumps. NOSE: No epistaxis or discharge. EYES: No diplopia or pain. RESPIRATORY: CARDIOVASCULAR: GASTROINTESTINAL: /END STAPLER: MUSCULOSKELETAL: No joint pain. NEUROPSYCHIATIC SYSTEMS: No suicidal ideation. No ideation. SKIN: Denies any rash or ulcer. CONSTITUTIONAL: No fever or chills. PHYSICAL EXAMINATION: GENERAL: The patient is awake and alert. VITAL SIGNS: Afebrile, pulse 80, breathing 16, blood pressure 114/62. MENTAL STATUS: Fair. HEAD/NECK: Normocephalic. Atraumatic. EYES: EOMI. No deformity. EARS: Clear. No ulcers. NOSE: Intact. No lesions. MOUTH: Clear. No discharge. THROAT: Clear. No exudate. LUNGS: Clear. No crackles. CARDIAC: S1, S2. No rub. ABDOMEN: Distended and taut. GENITALIA/RECTUM: Martin absent. BACK/EXTREMITIES: Edema 0+. NEUROLOGICAL: Alert and motor intact. SKIN: LYMPHATICS: LABORATORY DATA: Labs show sodium 151, potassium 3.5, bicarbonate 30. ASSESSMENT: 1. Acute kidney injury with chronic kidney injury due to nonsteroidal anti-inflammatory drugs use. Avoid ibuprofen. 2. Hypertension, stable. 3. Hypernatremia. Continue with D5 at 100 mL an hour and follow sodium every 4 hours. No indication for any other therapy, keep a close eye on input and output. Job ID: [id number]
[2019-06-14] MEDS ORDERED: Ibuprofen 600 MG TAB PO PRN (23:59)
[2019-06-15] MEDS: traMADol HCl 50 MG TAB PO PRN ×3 (01:01→23:06)
[2019-06-15] MEDS: Dextrose 5% in Water 1,000 ML IV SCH ×2 (01:06→16:25)
[2019-06-15 06:47] LABS: Hemoglobin 7.9 g/dL (14.0-18.0); Mean Corpuscular HGB CONC 29.4 g/dL (32.0-36.0); Mean Corpuscular Hemoglobin 25.2 pg (27.0-31.0); Mean Corpuscular Volume 85.7 fL (78.0-98.0); Mean Platelet Volume 10.3 fL (7.4-10.4); Platelet Count 180 thou/uL (130-400); RBC Distribution Width 19.9 % (11.5-14.5); Red Blood Cell (RBC) Count 3.12 mill/uL (4.70-6.10); White Blood Cell (WBC) Count 9.3 thou/uL (4.8-10.8)
[2019-06-15 06:51] LABS: #Eosinphils 0.1 thou/uL (0.0-0.7); #Lymphocytes 2.3 thou/uL (1.20-3.40); #Monocytes 0.9 thou/uL (0.11-0.59); %Basophils 0.3 % (0.0-1.0); %Lymphocytes 24.4 % (21.0-51.0); %Monocytes 9.3 % (0.0-10.0); %Neutrophils 64.9 % (42.0-75.0)
[2019-06-15 07:04] LABS: Anion Gap 13 mmol/L (10-20); BUN (Urea Nitrogen) 8 mg/dL (8.9-20.6); Calc. Creatinine Clearance 80 mL/min (70-130); Calcium 8.2 mg/dL (7.8-10.44); Carbon Dioxide 26 mmol/L (22-29); Chloride 110 mmol/L (98-107); Estimated GFR-MDRD 48; Glucose 99 mg/dL (70-105); Potassium 3.4 mmol/L (3.5-5.1); Sodium 146 mmol/L (136-145)
[2019-06-15 07:24] LABS: Anisocytosis SLIGHT = 6-15 cells (100X) (0-5/hpf); Hypochromia SLIGHT = 6-15 cells (100X) (0-5/hpf); MDiff Complete? YES; Ovalocytes SLIGHT = 2-5 cells (100X) (0-1/hpf); Platelet Morphology Comment Appears Adequate; Polychromasia SLIGHT = 2-3 cells (100X) (0-2/hpf); Tear Drops SLIGHT = 2-5 cells (100X) (0-1/hpf)
[2019-06-15] MEDS: Mometasone/Formoterol 120 PUFF INHALER INH SCH ×2 (07:30→18:56)
--- NOTE | 2019-06-15 11:39 | PRG ---
DATE OF SERVICE: 06/15/2019 SUBJECTIVE: A 48-year-old gentleman, being seen for acute kidney injury. The patient denies any nausea, vomiting, or chest pain. OBJECTIVE: GENERAL: The patient is awake and alert. VITAL SIGNS: Pulse 69, breathing 16, blood pressure 117/65. GENERAL APPEARANCE AND MENTAL STATUS: Fair. HEAD/NECK: Normocephalic. Atraumatic. EYES: EOMI. No deformity. EARS: Clear. No ulcers. NOSE: Intact. No lesions. MOUTH: Clear. No discharge. THROAT: Clear. No exudate. LUNGS: Clear. No crackles. CARDIAC: S1, S2. No rub. ABDOMEN: Benign. Bowel sounds positive. GENITALIA/RECTUM: Martin absent. BACK/EXTREMITIES: Edema 0+. NEUROLOGICAL: Alert and motor intact. SKIN: LYMPHATICS: LABORATORY DATA: Showed hemoglobin 7.9, creatinine 1.5. ASSESSMENT AND PLAN: 1. Acute kidney injury due to acute tubular necrosis, improved. 2. Hypertension, stable. 3. Hypokalemia, recommend 20 mEq of potassium. 4. Hypernatremia, recommend to continue D5 water, improved. 5. Anemia. We would recommend transfusion. No indication for dialysis. Job ID: [id number]
--- NOTE | 2019-06-15 16:05 | PDOC.HOSPP ---
- Subjective Encounter Date: 06/15/19 Encounter Time: 13:00 Subjective: pt does not have output from his colostomy, no complaints - Objective Vital Signs & Weight: Vital Signs (12 hours) Temp Pulse Resp BP Pulse Ox 06/15/19 08:00 100 06/15/19 07:19 97.6 F 69 18 117/65 100 Weight Admit Weight 211 lb Weight 211 lb 8 oz I&O: 06/14/19 06/15/19 06/16/19 06:59 06:59 06:59 Intake Total 600 4210 Balance 600 4210 Result Diagrams: 06/15/19 06:30 06/15/19 06:30 Additional Labs: Accuchecks 06/15/19 06/15/19 06/14/19 11:10 05:20 20:11 POC Glucose 90 90 110 06/14/19 16:27 POC Glucose 99 ROS - Review of Systems Eyes: denies: pain, vision change, conjunctivae inflammation, eyelid inflammation, redness, other ENT: denies: ear pain, ear discharge, nose pain, nose discharge, nose congestion , mouth pain, mouth swelling, throat pain, throat swelling, other Respiratory: denies: cough, dry, shortness of breath, hemoptysis, SOB with excertion, pleuritic pain, sputum, wheezing, other Cardiovascular: denies: chest pain, palpitations, orthopnea, paroxysmal noc. dyspnea, edema, light headedness, other Gastrointestinal: denies: nausea, vomitting, abdominal pain, diarrhea, constipation, melena, hematochezia, other Genitourinary: denies: dysuria, frequency, incontinence, hematuria, retention, other Musculoskeletal: denies: neck pain, shoulder pain, arm pain, back pain, hand pain, leg pain, foot pain, other - Medication Medications: Active Medications Generic Name Dose Route Start Last Admin Trade Name Freq PRN Reason Stop Dose Admin Acetaminophen 1,000 mg 06/10/19 23:59 06/12/19 18:48 Tylenol PO 1,000 mg Q6H PRN Administration Moderate to Severe Pain (6-10) Dextrose/Water 1,000 mls @ 100 mls/hr 06/14/19 18:45 06/15/19 01:06 D5w IV 1,000 mls .Q10H SNEHAL Administration Lidocaine HCl 0 ml 06/07/19 18:43 06/08/19 17:12 Glydo TOP 11 ml PRN PRN Administration Wound Care Mometasone Furoate/Formoterol Fumar 2 puff 06/07/19 18:30 06/15/19 07:30 Dulera 200 Mcg/5 Mcg Inhaler INH 2 puff BID-RT SNEHAL Administration Morphine Sulfate 4 mg 06/09/19 18:06 06/14/19 01:11 Morphine SLOW IVP 4 mg Q2H PRN Administration .BREAKTHROUGH Pain Morphine Sulfate 2 mg 06/09/19 18:09 06/14/19 17:02 Morphine SLOW IVP 2 mg Q2H PRN Administration Moderate to Severe Pain (4-10) Sodium Chloride 10 ml 06/13/19 21:00 06/15/19 08:24 Flush - Normal Saline IVF 10 ml Q12HR SNEHAL Administration Tramadol HCl 100 mg 06/14/19 17:01 06/15/19 01:01 Ultram PO 100 mg Q4H PRN Administration Pain (7-10) - Exam NAD, awake alert Eye: PERRL, anicteric sclera ENT: normocephalic atraumatic, no oropharyngeal lesions Neck: supple, symmetric, no JVD Heart: RRR, no murmur, no gallops Respiratory: CTAB, no wheezes, no rales Gastrointestinal: soft, non-tender, normal bowel sounds Gastrointestinal - other findings: colostomy+ Skin: normal turgor, no lesions Skin - other findings: wound with dressing Neurological: CN's grossly intact, normal sensation to touch Musculoskeletal: normal tone, normal strength Psychiatric: normal affect, normal behavior Hosp A/P (1) Hypokalemia Code(s): E87.6 - HYPOKALEMIA Status: Acute (2) Infected decubitus ulcer Code(s): L89.90 - PRESSURE ULCER OF UNSPECIFIED SITE, UNSPECIFIED STAGE; L08.9 - LOCAL INFECTION OF THE SKIN AND SUBCUTANEOUS TISSUE, UNSP Status: Acute Qualifiers: Pressure injury stage: stage 4 (3) Asthma Code(s): J45.909 - UNSPECIFIED ASTHMA, UNCOMPLICATED Status: Chronic (4) COPD (chronic obstructive pulmonary disease) Status: Chronic Qualifiers: (5) Cystic-bullous disease of lung Code(s): J98.4 - OTHER DISORDERS OF LUNG Status: Chronic (6) DM type 2 (diabetes mellitus, type 2) Status: Deleted Qualifiers: (7) HTN (hypertension) Code(s): I10 - ESSENTIAL (PRIMARY) HYPERTENSION Status: Chronic Qualifiers: (8) Langerhans cell histiocytoses Code(s): C96.6 - UNIFOCAL LANGERHANS-CELL HISTIOCYTOSIS Status: Chronic (9) Obesity (BMI 30-39.9) Code(s): E66.9 - OBESITY, UNSPECIFIED Status: Chronic (10) Sacral decubitus ulcer, stage IV Code(s): L89.154 - PRESSURE ULCER OF SACRAL REGION, STAGE 4 Status: Chronic (11) Tobacco abuse Code(s): Z72.0 - TOBACCO USE Status: Chronic - Plan old records reviewed/req once colostomy output obtained, then stable for DC reduce IVF at 70 ml per hour repeat labs tomorrow medication reviewed as above symptomatic treatment wound care colostomy care
--- NOTE | 2019-06-15 20:44 | PDOC.GSPN ---
Surgery Progress Note: Subj - Subjective Narrative: Patient is feeling better. He denies nausea and his abdominal pain has improved. His colostomy looks good but there is still no gas or stool. He is ambulating and tolerating his diet. We will continue to await bowel function. No new recommendations. Surgery Progress Note: Obj - Vital signs Vital signs: Vital Signs - Most Recent Temp Pulse Resp BP Pulse Ox 98.1 F 69 12 99/52 L 100 06/15/19 19:24 06/15/19 19:24 06/15/19 19:24 06/15/19 19:24 06/15/19 19:24 Surgery Progress Note: Results - Labs Result Diagrams: 06/15/19 06:30 06/15/19 06:30 Lab results: Laboratory Results - last 24 hr 06/15/19 06/15/19 11:10 16:33 POC Glucose 90 87
[2019-06-16] MEDS: Dextrose 5% in Water 1,000 ML IV SCH ×2 (03:12→19:23)
[2019-06-16] MEDS ORDERED: Activase 2 MG VIAL CATH SCH (04:00)
[2019-06-16] MEDS ORDERED: Sterile Water 10 ML VIAL IVP SCH (04:00)
[2019-06-16 05:09] LABS: #Lymphocytes 2.5 thou/uL (1.20-3.40); #Monocytes 0.6 thou/uL (0.11-0.59); %Basophils 0.3 % (0.0-1.0); %Eosinophils 0.4 % (0.0-10.0); %Monocytes 6.5 % (0.0-10.0); %Neutrophils 65.8 % (42.0-75.0); Hemoglobin 8.6 g/dL (14.0-18.0); Mean Corpuscular HGB CONC 31.2 g/dL (32.0-36.0); Mean Corpuscular Hemoglobin 26.5 pg (27.0-31.0); Mean Platelet Volume 10.2 fL (7.4-10.4); Platelet Count 207 thou/uL (130-400); RBC Distribution Width 19.1 % (11.5-14.5); Red Blood Cell (RBC) Count 3.26 mill/uL (4.70-6.10); White Blood Cell (WBC) Count 9.2 thou/uL (4.8-10.8)
[2019-06-16 05:30] LABS: Anion Gap 12 mmol/L (10-20); BUN (Urea Nitrogen) 7 mg/dL (8.9-20.6); Calc. Creatinine Clearance 77 mL/min (70-130); Calcium 8.8 mg/dL (7.8-10.44); Carbon Dioxide 29 mmol/L (22-29); Chloride 102 mmol/L (98-107); Estimated GFR-MDRD 47; Glucose 100 mg/dL (70-105); Potassium 3.2 mmol/L (3.5-5.1); Sodium 140 mmol/L (136-145)
[2019-06-16] MEDS: Mometasone/Formoterol 120 PUFF INHALER INH SCH ×2 (07:09→18:37)
[2019-06-16] MEDS ORDERED: Ibuprofen 600 MG TAB PO PRN (11:51)
[2019-06-16] MEDS ORDERED: Milk Of Magnesia 30 ML UDCUP PO SCH (12:00)
--- NOTE | 2019-06-16 12:22 | PRG ---
DATE OF SERVICE: 06/16/2019 SUBJECTIVE: Don Cowan is doing well today. Dr. Reid revised his colostomy in my absence. This was done at his colostomy site without laparoscopy or without laparotomy. His laparoscopic wounds are well healed. His colostomy is healthy. He is tolerating a diet without nausea, has not had any stool out of his colostomy. OBJECTIVE: LUNGS: Clear to auscultation. CARDIAC: Regular rate and rhythm without murmur or gallop. ABDOMEN: Soft and nontender. VITAL SIGNS: 98.3 degrees, 95, and 126/70. LABORATORY DATA: White count 8 and hemoglobin 9.2. Basic metabolic profile normal. Potassium 3.2. ASSESSMENT AND PLAN: Doing well, after colostomy revision. Colostomy was performed for diversion for histiocytosis. Langerhans disease presacral perineum. Wound Care reports that his wound is doing much better. The patient's pain is resolved without defecation and status post diversion. Awaiting bowel movement. He can be discharged home. We will order fiber and laxatives. Job ID: [id number]
--- NOTE | 2019-06-16 12:24 | RAD ---
ABDOMEN ONE VIEW: HISTORY: Postop constipation FINDINGS: There is fecal material in the colon. The bowel gas pattern is unremarkable. An ostomy is seen in the left lower quadrant. No suspicious calcifications are identified.
--- NOTE | 2019-06-16 12:29 | PDOC.HOSPP ---
- Subjective Encounter Date: 06/16/19 Encounter Time: 11:15 Subjective: no abd pain or nausea or vomiting - Objective Vital Signs & Weight: Vital Signs (12 hours) Temp Pulse Resp BP Pulse Ox 06/16/19 08:00 98.3 F 95 18 126/70 96 06/16/19 03:42 94 L Weight Admit Weight 211 lb Weight 211 lb 8 oz I&O: 06/15/19 06/16/19 06/17/19 06:59 06:59 06:59 Intake Total 4210 4441 Balance 4210 4441 Result Diagrams: 06/16/19 04:55 06/16/19 04:55 Additional Labs: Accuchecks 06/16/19 06/15/19 06/15/19 11:12 21:33 16:33 POC Glucose 99 111 H 87 06/15/19 11:10 POC Glucose 90 ROS - Medication Medications: Active Medications Generic Name Dose Route Start Last Admin Trade Name Freq PRN Reason Stop Dose Admin Acetaminophen 1,000 mg 06/10/19 23:59 06/12/19 18:48 Tylenol PO 1,000 mg Q6H PRN Administration Moderate to Severe Pain (6-10) Dextrose/Water 1,000 mls @ 70 mls/hr 06/15/19 16:06 06/16/19 03:12 D5w IV 1,000 mls .[id number] SNEHAL Administration Lidocaine HCl 0 ml 06/07/19 18:43 06/08/19 17:12 Glydo TOP 11 ml PRN PRN Administration Wound Care Mometasone Furoate/Formoterol Fumar 2 puff 06/07/19 18:30 06/16/19 07:09 Dulera 200 Mcg/5 Mcg Inhaler INH 2 puff BID-RT SNEHAL Administration Sodium Chloride 10 ml 06/13/19 21:00 06/15/19 19:54 Flush - Normal Saline IVF 10 ml Q12HR SNEHAL Administration Tramadol HCl 100 mg 06/14/19 17:01 06/15/19 23:06 Ultram PO 100 mg Q4H PRN Administration Pain (7-10) - Exam NAD, awake alert Eye: PERRL, anicteric sclera ENT: normocephalic atraumatic, no oropharyngeal lesions Neck: supple, symmetric, no JVD Heart: RRR, no murmur Respiratory: no wheezes, no rales Gastrointestinal: soft, non-tender Gastrointestinal - other findings: colostomy+, no stool in it Extremities: no clubbing, no edema Neurological: CN's grossly intact, no focal deficits Musculoskeletal: normal tone, no muscle wasting Psychiatric: normal affect, A&O x 3 Hosp A/P (1) SYLVAIN (acute kidney injury) Code(s): N17.9 - ACUTE KIDNEY FAILURE, UNSPECIFIED Status: Acute (2) S/P colostomy Code(s): Z93.3 - COLOSTOMY STATUS Status: Acute (3) Wound infection Code(s): T14.8XXA - OTHER INJURY OF UNSPECIFIED BODY REGION, INITIAL ENCOUNTER; L08.9 - LOCAL INFECTION OF THE SKIN AND SUBCUTANEOUS TISSUE, UNSP Status: Chronic (4) Anemia Code(s): D64.9 - ANEMIA, UNSPECIFIED Status: Chronic Qualifiers: Anemia type: unspecified type Qualified Code(s): D64.9 - Anemia, unspecified (5) Asthma Code(s): J45.909 - UNSPECIFIED ASTHMA, UNCOMPLICATED Status: Chronic (6) COPD (chronic obstructive pulmonary disease) Status: Chronic Qualifiers: (7) Cystic-bullous disease of lung Code(s): J98.4 - OTHER DISORDERS OF LUNG Status: Chronic (8) Diabetes mellitus Code(s): E11.9 - TYPE 2 DIABETES MELLITUS WITHOUT COMPLICATIONS Status: Chronic Qualifiers: Diabetes mellitus type: type 2 Diabetes mellitus roasterman insulin use: without roasterman use (9) HTN (hypertension) Code(s): I10 - ESSENTIAL (PRIMARY) HYPERTENSION Status: Chronic Qualifiers: (10) 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
[2019-06-16] MEDS ORDERED: Magnesium Citrate 300 ML BOT PO SCH (14:30)
--- NOTE | 2019-06-16 16:21 | PRG ---
DATE OF SERVICE: 06/16/2019 SUBJECTIVE: A 48-year-old gentleman, being seen for acute kidney injury. The patient denies any nausea, vomiting, or chest pain. OBJECTIVE: CONSTITUTIONAL: The patient is awake and alert. VITAL SIGNS: Pulse 95, breathing 16, and blood pressure 122/70. GENERAL APPEARANCE AND MENTAL STATUS: Fair. HEAD/NECK: Normocephalic. Atraumatic. EYES: EOMI. No deformity. EARS: Clear. No ulcers. NOSE: Intact. No lesions. MOUTH: Clear. No discharge. THROAT: Clear. No exudate. LUNGS: Clear. No crackles. CARDIAC: S1, S2. No rub. ABDOMEN: Benign. Bowel sounds positive. GENITALIA/RECTUM: Martin absent. BACK/EXTREMITIES: Edema 0+. NEUROLOGICAL: Alert and motor intact. SKIN: LYMPHATICS: LABORATORY DATA: Hemoglobin is 8.6, potassium 3.2, and creatinine 1.6. ASSESSMENT AND PLAN: 1. Acute kidney injury with chronic kidney disease, stage 3, stable. 2. Acute tubular necrosis, stable. 3. Hypokalemia. Recommend 20 mEq of potassium. 4. Hyponatremia, resolved. I will sign off on this patient. Please reconsult as needed. He will follow up to see me in 2 weeks. Job ID: [id number]
[2019-06-16] MEDS: Calcium Polycarbophil 625 MG TAB PO SCH (19:22)
[2019-06-16] MEDS: Polyethylene Glycol 3350 17 GM Packet PO SCH (19:23)
[2019-06-17] MEDS: Mometasone/Formoterol 120 PUFF INHALER INH SCH ×2 (07:41→18:15)
[2019-06-17] MEDS ORDERED: Magnesium Citrate 300 ML BOT PO SCH (08:00)
[2019-06-17] MEDS: Calcium Polycarbophil 625 MG TAB PO SCH ×2 (09:32→20:23)
[2019-06-17] MEDS: Polyethylene Glycol 3350 17 GM Packet PO SCH ×2 (09:32→20:23)
[2019-06-17] MEDS: Acetaminophen 500 MG TAB PO PRN (09:37)
[2019-06-17 09:41] LABS: Anion Gap 13 mmol/L (10-20); BUN (Urea Nitrogen) 7 mg/dL (8.9-20.6); Calc. Creatinine Clearance 68 mL/min (70-130); Calcium 9.5 mg/dL (7.8-10.44); Carbon Dioxide 28 mmol/L (22-29); Chloride 105 mmol/L (98-107); Estimated GFR-MDRD 40; Glucose 109 mg/dL (70-105); Potassium 3.3 mmol/L (3.5-5.1); Sodium 143 mmol/L (136-145)
--- NOTE | 2019-06-17 10:58 | PRG ---
DATE OF SERVICE: 06/17/2019 SUBJECTIVE: This 48-year-old gentleman, being seen for acute kidney injury. The patient denies any nausea, vomiting, or chest pain. OBJECTIVE: CONSTITUTIONAL: The patient is awake and alert. VITAL SIGNS: Pulse 74, breathing 16, blood pressure 120/72. GENERAL APPEARANCE AND MENTAL STATUS: Fair. HEAD/NECK: Normocephalic. Atraumatic. EYES: EOMI. No deformity. EARS: Clear. No ulcers. NOSE: Intact. No lesions. MOUTH: Clear. No discharge. THROAT: Clear. No exudate. LUNGS: Clear. No crackles. CARDIAC: S1, S2. No rub. ABDOMEN: Benign. Bowel sounds positive. GENITALIA/RECTUM: Martin absent. BACK/EXTREMITIES: Edema 0+. NEUROLOGICAL: Alert and motor intact. SKIN: LYMPHATICS: LABORATORY DATA: Hemoglobin 8.6. Creatinine is pending. ASSESSMENT AND RECOMMENDATION: 1. Chronic kidney disease, stage 3, stable. 2. Hypertension, stable. 3. Acute kidney injury due to acute tubular necrosis, stable. 4. Hypokalemia. We will recheck potassium today. I will sign off on this patient. Please reconsult as needed. Job ID: [id number]
[2019-06-17] MEDS: traMADol HCl 50 MG TAB PO PRN ×2 (11:45→17:27)
--- NOTE | 2019-06-17 12:19 | PDOC.HOSPP ---
- Subjective Encounter Date: 06/17/19 Encounter Time: 11:15 Subjective: has abd colic, no stool yet in colostomy is amb in hallway no nausea - Objective Vital Signs & Weight: Vital Signs (12 hours) Temp Pulse Resp BP Pulse Ox 06/17/19 07:40 98.2 F 74 20 120/72 93 L Weight Admit Weight 211 lb Weight 211 lb 8 oz I&O: 06/16/19 06/17/19 06/18/19 06:59 06:59 06:59 Intake Total 4441 1200 Output Total 750 Balance 4441 450 Result Diagrams: 06/16/19 04:55 06/17/19 09:14 Additional Labs: Accuchecks 06/17/19 06/17/19 06/16/19 11:40 05:28 20:09 POC Glucose 117 H 106 104 06/16/19 16:20 POC Glucose 100 ROS - Medication Medications: Active Medications Generic Name Dose Route Start Last Admin Trade Name Freq PRN Reason Stop Dose Admin Acetaminophen 1,000 mg 06/10/19 23:59 06/17/19 09:37 Tylenol PO 1,000 mg Q6H PRN Administration Moderate to Severe Pain (6-10) Calcium Polycarbophil 625 mg 06/16/19 21:00 06/17/19 09:32 Fibercon PO 625 mg BID SNEHAL Administration Dextrose/Water 1,000 mls @ 70 mls/hr 06/15/19 16:06 06/16/19 19:23 D5w IV 1,000 mls .[id number] SNEHAL Administration Ibuprofen 600 mg 06/16/19 11:51 06/17/19 09:37 Motrin PO 600 mg Q6H PRN Administration Pain Lidocaine HCl 0 ml 06/07/19 18:43 06/08/19 17:12 Glydo TOP 11 ml PRN PRN Administration Wound Care Mometasone Furoate/Formoterol Fumar 2 puff 06/07/19 18:30 06/17/19 07:41 Dulera 200 Mcg/5 Mcg Inhaler INH 2 puff BID-RT SNEHAL Administration Ondansetron HCl 4 mg 06/06/19 21:00 06/16/19 20:00 Zofran Odt PO 4 mg Q6H PRN Administration Nausea/Vomiting Polyethylene Glycol 17 gm 06/16/19 21:00 06/17/19 09:32 Miralax PO 17 gm BID SNEHAL Administration Sodium Chloride 10 ml 06/13/19 21:00 06/17/19 09:33 Flush - Normal Saline IVF Not Given Q12HR SNEHAL Tramadol HCl 100 mg 06/14/19 17:01 06/17/19 11:45 Ultram PO 100 mg Q4H PRN Administration Pain (7-10) - Exam NAD, awake alert Eye: PERRL, anicteric sclera ENT: no oropharyngeal lesions, moist mucosa Neck: supple, no JVD Heart: RRR, no murmur Respiratory: no wheezes, no rales Gastrointestinal: soft Gastrointestinal - other findings: colostomy has sang liq, no stool yet Extremities: no clubbing, no edema Neurological: CN's grossly intact, no focal deficits Psychiatric: normal affect, A&O x 3 Hosp A/P (1) SYLVAIN (acute kidney injury) Code(s): N17.9 - ACUTE KIDNEY FAILURE, UNSPECIFIED Status: Acute (2) S/P colostomy Code(s): Z93.3 - COLOSTOMY STATUS Status: Acute (3) Wound infection Code(s): T14.8XXA - OTHER INJURY OF UNSPECIFIED BODY REGION, INITIAL ENCOUNTER; L08.9 - LOCAL INFECTION OF THE SKIN AND SUBCUTANEOUS TISSUE, UNSP Status: Chronic (4) Anemia Code(s): D64.9 - ANEMIA, UNSPECIFIED Status: Chronic Qualifiers: Anemia type: unspecified type Qualified Code(s): D64.9 - Anemia, unspecified (5) Asthma Code(s): J45.909 - UNSPECIFIED ASTHMA, UNCOMPLICATED Status: Chronic (6) COPD (chronic obstructive pulmonary disease) Status: Chronic Qualifiers: (7) Cystic-bullous disease of lung Code(s): J98.4 - OTHER DISORDERS OF LUNG Status: Chronic (8) Diabetes mellitus Code(s): E11.9 - TYPE 2 DIABETES MELLITUS WITHOUT COMPLICATIONS Status: Chronic Qualifiers: Diabetes mellitus type: type 2 Diabetes mellitus usp insulin use: without laborer marine terminal use (9) HTN (hypertension) Code(s): I10 - ESSENTIAL (PRIMARY) HYPERTENSION Status: Chronic Qualifiers: (10) Langerhans cell histiocytoses Code(s): C96.6 - UNIFOCAL LANGERHANS-CELL HISTIOCYTOSIS Status: Chronic (11) Obesity (BMI 30-39.9) Code(s): E66.9 - OBESITY, UNSPECIFIED Status: Chronic (12) Tobacco abuse Code(s): Z72.0 - TOBACCO USE Status: Chronic (13) Ileus, postoperative Code(s): K91.89 - OTH POSTPROCEDURAL COMPLICATIONS AND DISORDERS OF DGSTV SYS; K56.7 - ILEUS, UNSPECIFIED Status: Acute - Plan hemostable has no stool output yet from colostomy, is tolerating oral liq diet to amb in hallway as tolerated, incentive spirotmetry one dose kdur dc plan per gen surgery adv/ileus to resolve
[2019-06-17] MEDS ORDERED: Potassium Chloride 20 MEQ TAB PO SCH (12:30)
[2019-06-17] MEDS ORDERED: Acetaminophen 1,000 MG in Premix Bag 1 BAG IVPB PRN (17:25)
[2019-06-18 04:36] LABS: Anion Gap 13 mmol/L (10-20); BUN (Urea Nitrogen) 11 mg/dL (8.9-20.6); Calc. Creatinine Clearance 74 mL/min (70-130); Calcium 8.4 mg/dL (7.8-10.44); Carbon Dioxide 29 mmol/L (22-29); Chloride 99 mmol/L (98-107); Estimated GFR-MDRD 44; Glucose 95 mg/dL (70-105); Potassium 3.4 mmol/L (3.5-5.1); Sodium 138 mmol/L (136-145)
[2019-06-18] MEDS: Mometasone/Formoterol 120 PUFF INHALER INH SCH (07:32)
[2019-06-18 09:01] VITALS: BP 127/72; TEMP 98.3
[2019-06-18] MEDS: Polyethylene Glycol 3350 17 GM Packet PO SCH (09:48)
[2019-06-18] MEDS: Calcium Polycarbophil 625 MG TAB PO SCH (09:48)
[2019-06-18] MEDS ORDERED: Potassium Chloride 20 MEQ TAB PO SCH (11:15)
[2019-06-18] MEDS ORDERED: Heparin 25,000 units/D5W 0 ML ONE (12:16)
--- NOTE | 2019-06-18 13:01 | PRG ---
DATE OF SERVICE: 06/18/2019 SUBJECTIVE: A 48-year-old gentleman, being seen for acute kidney injury. The patient denies any nausea, vomiting, or chest pain. OBJECTIVE: CONSTITUTIONAL: The patient is awake and alert. VITAL SIGNS: Afebrile, pulse 82, breathing 16, blood pressure 127/72. GENERAL APPEARANCE AND MENTAL STATUS: Fair. HEAD/NECK: Normocephalic. Atraumatic. EYES: EOMI. No deformity. EARS: Clear. No ulcers. NOSE: Intact. No lesions. MOUTH: Clear. No discharge. THROAT: Clear. No exudate. LUNGS: Clear. No crackles. CARDIAC: S1, S2. No rub. ABDOMEN: Benign. Bowel sounds positive. GENITALIA/RECTUM: Martin absent. BACK/EXTREMITIES: Edema 0+. NEUROLOGICAL: Alert and motor intact. SKIN: LYMPHATICS: LABORATORY DATA: Creatinine 1.6. ASSESSMENT: 1. Chronic kidney disease stage 3, stable. 2. Acute kidney injury due to acute tubular necrosis, improved. 3. Hypokalemia, recommend 40 mEq of potassium. 4. I will sign off on this patient. 5. The patient will follow up to see us in 1 to 2 weeks. Job ID: [id number]
--- NOTE | 2019-06-18 14:51 | DIS ---
DATE OF ADMISSION: 06/06/2019 DATE OF DISCHARGE: 06/18/2019 DISCHARGE DISPOSITION: To home. PRIMARY DISCHARGE DIAGNOSES: Status post colostomy and revision of colostomy, acute kidney injury. 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 PROCEDURES DONE DURING HOSPITALIZATION: The patient has had abdominal and pelvic CAT scan done on the day of admission, which showed fatty liver, splenomegaly. No evidence of abscess formation. The patient had laparoscopic diverting colostomy done to help with wound healing with open wounds in the perineum and sacral area. This was done on 06/09/[address] Martin. The patient had revision of colostomy done on 06/13/2019 for necrotic colostomy by Dr. Reid. Blood cultures x2, no growth. Bacteria culture from the buttock wound has grown moderate mixed skin and enteric fidel. No predominant organism was seen in the mixture of 3 or more organisms. Discharge H and H 8.6 and 27.7, platelet count 207, white count of 9 with 65% neutrophils. Discharge BUN and creatinine is 11 and 1.6. Discharge bicarb is 29. INPATIENT CONSULT: Dr. Martin/[facility]. DISCHARGE MEDICATIONS: 1. Symbicort inhaler 2 puffs twice daily. 2. DuoNeb q.i.d. p.r.n. 3. Ibuprofen 400 mg p.o. twice daily p.r.n. for pain. ALLERGIES: NO KNOWN DRUG ALLERGIES. DISCHARGE PLAN: The patient will follow up with Dr. Martin as advised and primary care physician in 1 week. He also needs to follow up with Wound Care on the at 9:30 a.m. BRIEF COURSE DURING HOSPITALIZATION: The patient initially got admitted on the with worsening ulcerations/wounds in his gluteal folds. He has known history of Langerhans cell histiocytosis. In view of this history, he has had consultation with Dr. Martin. The patient had diverting colostomy done to help with wound healing. Unfortunately, the colostomy became necrotic and had a revision of the same done on the by Dr. Reid. Postop, the patient has had ileus, which completely got resolved from last evening. His colostomy output is good from last 18 hours. He is ambulating and eating well prior to discharge. He has been cleared by General Surgery for discharge today. The patient needs to follow up with Wound Care on the . He has learned how to empty his colostomy and colostomy supplies will be given to him prior to discharge. Colostomy education has been done by Wound Care. He is hemodynamically stable and will be shortly discharged home. Please note, I have seen and examined the patient on the day of discharge. Job ID: [id number] [facility]
== END 2019-06-18 14:07 | disposition home or self-care (01) | DRG 981 ==
LOC: ERS 13:40 → ONC 18:00
PROVIDERS: ADMIT Internal Medicine; ATTEND Internal Medicine
PROC: 0D1N4Z4 Bypass Sigmoid Colon to Cutaneous, Percutaneous Endoscopic Approach (ICD-10-PCS; principal; 2019-06-13)
PROC: 0DSN0ZZ Reposition Sigmoid Colon, Open Approach (ICD-10-PCS; 2019-06-13)
DX: L89.154 Pressure ulcer of sacral region, stage 4 (principal); N17.0 Acute kidney failure with tubular necrosis; C96.6 Unifocal Langerhans-cell histiocytosis; L03.317 Cellulitis of buttock; K56.7 Ileus, unspecified; K62.6 Ulcer of anus and rectum; E87.0 Hyperosmolality and hypernatremia; K91.89 Other postprocedural complications and disorders of digestive system; K94.09 Other complications of colostomy; E11.22 Type 2 diabetes mellitus with diabetic chronic kidney disease; Z51.5 Encounter for palliative care; D70.9 Neutropenia, unspecified; N18.3 Chronic kidney disease, stage 3 (moderate); J44.9 Chronic obstructive pulmonary disease, unspecified; K62.9 Disease of anus and rectum, unspecified; I12.9 Hypertensive chronic kidney disease with stage 1 through stage 4 chronic kidney disease, or unspecified chronic kidney disease; T45.1X5A Adverse effect of antineoplastic and immunosuppressive drugs, initial encounter; D63.1 Anemia in chronic kidney disease; E66.9 Obesity, unspecified; L98.499 Non-pressure chronic ulcer of skin of other sites with unspecified severity; E87.6 Hypokalemia; J98.4 Other disorders of lung; Z90.49 Acquired absence of other specified parts of digestive tract; Z87.891 Personal history of nicotine dependence; J45.909 Unspecified asthma, uncomplicated
CPT/HCPCS: 36415; 36416; 74018; 74177; 76770; 80048; 80053; 80069; 80202; 81001; 82570; 83605; 83735; 84300; 85007; 85025; 85027; 86850; 86900; 86901; 87040; 87070; 87205; 88304; 90471; 90732; 93005; 93010; 96365; 96367; 96375; G0009; J0131; J0670; J0694; J1100; J1170; J1642; J1644; J1650; J1885; J2001; J2270; J2405; J2543; J2704; J2997; J3010; J3370; J3490; J7050; Q0162; Q9966

== ENCOUNTER 2019-07-10 08:02 | Day surgery (SDC) | payer OTHER ==
[~2019-07-10 08:02] MED LIST changes: -CYTARABINE IJ SCH; +CYTARABINE IVPB SCH; -SODIUM CHLORIDE 0.9% IJ SCH; +SODIUM CHLORIDE 0.9% IVPB SCH
[2019-07-10 09:02] VITALS: BP 121/67; TEMP 97.6
[2019-07-10] MEDS ORDERED: Sodium Chloride 0.9% 30 ML ONE (09:23)
== END 2019-07-10 12:23 | disposition home or self-care (01) ==
LOC: ONC/OP 08:02
PROVIDERS: ATTEND Internal Medicine Hematology & Oncology
DX: Z51.11 Encounter for antineoplastic chemotherapy (principal); C96.0 Multifocal and multisystemic (disseminated) Langerhans-cell histiocytosis; D70.8 Other neutropenia
CPT/HCPCS: 96366; 96375; 96413; J1642; J2405; J2920; J7050; J9100

== ENCOUNTER 2019-07-11 11:27 | Day surgery (SDC) | payer OTHER ==
[~2019-07-11 11:27] MED LIST changes: -Ondansetron 2MG/ML MDV 10 MG in Sodium Chloride 0.9% 50 ML IVPB SCH; +Ondansetron PF 4 MG/2 ML Vial IVP SCH
[2019-07-11] MEDS ORDERED: Sodium Chloride 0.9% 20 ML ONE (12:10)
== END 2019-07-11 14:59 | disposition home or self-care (01) ==
LOC: ONC/OP 11:27
PROVIDERS: ATTEND Internal Medicine Hematology & Oncology
DX: Z51.11 Encounter for antineoplastic chemotherapy (principal); C96.0 Multifocal and multisystemic (disseminated) Langerhans-cell histiocytosis; D70.8 Other neutropenia
CPT/HCPCS: 96375; 96413; 96415; J1642; J2405; J2920; J7050; J9100

== ENCOUNTER 2019-07-12 09:56 | Day surgery (SDC) | payer OTHER ==
[~2019-07-12 09:56] MED LIST changes: +Bacteriostatic Water 30 ML VIAL FS PRN; +Ondansetron HCl/PF 10 MG in Sodium Chloride 0.9% 50 ML IVPB SCH; -Ondansetron PF 4 MG/2 ML Vial IVP SCH
[2019-07-12 10:11] VITALS: BP 131/71; TEMP 98.2
[2019-07-12] MEDS ORDERED: Sodium Chloride 0.9% 30 ML ONE (10:30)
== END 2019-07-12 13:21 | disposition home or self-care (01) ==
LOC: ONC/OP 09:56
PROVIDERS: ATTEND Internal Medicine Hematology & Oncology
DX: Z51.11 Encounter for antineoplastic chemotherapy (principal); C96.0 Multifocal and multisystemic (disseminated) Langerhans-cell histiocytosis; D70.8 Other neutropenia
CPT/HCPCS: 96375; 96413; 96415; J1642; J2405; J2920; J7050; J9100

== ENCOUNTER 2019-07-13 10:32 | Day surgery (SDC) | payer OTHER ==
[~2019-07-13 10:32] MED LIST changes: +Ondansetron PF 4 MG/2 ML Vial IVP SCH
[2019-07-13] MEDS ORDERED: Sodium Chloride 0.9% 20 ML ONE (10:33)
[2019-07-13 10:42] VITALS: BP 137/72
[2019-07-14] MEDS ORDERED: methylPREDNISolone Sod Succ 40 MG VIAL IVP SCH (01:15)
== END 2019-07-13 13:59 | disposition home or self-care (01) ==
LOC: ONC/OP 10:32
PROVIDERS: ATTEND Internal Medicine Hematology & Oncology
DX: Z51.11 Encounter for antineoplastic chemotherapy (principal); C96.0 Multifocal and multisystemic (disseminated) Langerhans-cell histiocytosis; D70.8 Other neutropenia
CPT/HCPCS: 96375; 96413; 96415; J1642; J2405; J2920; J7050; J9100

== ENCOUNTER 2019-07-14 10:22 | Day surgery (SDC) | payer OTHER ==
[~2019-07-14 10:22] MED LIST changes: +Ondansetron 2MG/ML MDV 10 MG in Sodium Chloride 0.9% 50 ML IVPB SCH; -Ondansetron HCl/PF 10 MG in Sodium Chloride 0.9% 50 ML IVPB SCH; -Ondansetron PF 4 MG/2 ML Vial IVP SCH
[2019-07-14] MEDS ORDERED: Sodium Chloride 0.9% 30 ML ONE (10:33)
[2019-07-14 10:34] VITALS: BP 130/65; TEMP 98.5
== END 2019-07-14 13:34 | disposition home or self-care (01) ==
LOC: ONC/OP 10:22
PROVIDERS: ATTEND Internal Medicine Hematology & Oncology
DX: Z51.11 Encounter for antineoplastic chemotherapy (principal); C96.0 Multifocal and multisystemic (disseminated) Langerhans-cell histiocytosis; D70.8 Other neutropenia
CPT/HCPCS: 96375; 96413; 96415; J1642; J2405; J2920; J7050; J9100

== ENCOUNTER 2019-07-24 14:52 | Outpatient (CLI) | payer OTHER ==
--- NOTE | 2019-07-24 12:08 | PRG ---
DATE OF SERVICE: 07/24/2019 HISTORY: Mr. Don Cowan is a very pleasant 48-year-old gentleman, accompanied by his and daughter, who presents to the [facility] for evaluation of wounds of the perineum. Histologic examination previously revealed foci of Langerhans cell histiocytosis. The patient has been receiving chemotherapy, which he will complete in August of this year. The patient has undergone diverting colostomy by Dr. Martin, followed by a revision of the colostomy by Dr. Reid. Since the patient's last visit, he has been receiving dressing changes of Multidex powder and ABDs on a daily basis and as needed after cleansing and irrigation with the assistance of his . OBJECTIVE: VITAL SIGNS: Temperature 98.5, pulse 82, respirations 19, and blood pressure 141/84. BACK: Two perineal wounds are present, which measure approximately 3.0 x 1.0 cm and 3.5 x 1.5 cm. No purulent drainage is associated with either wound. No erythema of the skin surrounding either wound is present. No maceration of the skin of the periwound of either wound is noted. ASSESSMENT AND PLAN: 1. Perineal wounds as described above. As stated above, histologic examination previously revealed foci of Langerhans cell histiocytosis. Also, as stated above the patient will complete his course of chemotherapy in August of this year. Dressing changes of Multidex powder and ABDs will be continued on a daily basis and as needed after cleansing and irrigation with the assistance of the patient's . The patient and his and daughter have been reassured that the appearance of the wounds has markedly improved since his last visit. No antibiotic therapy will be initiated today based upon the appearance of the wounds. Cultures obtained on 06/26/2019 had revealed the growth of Staphylococcus aureus and Prevotella bivia. The patient and his family understand and are in agreement with the preceding treatment plan. I will see Mr. Marques Cowan again in 2 weeks. 2. Chronic obstructive pulmonary disease. 3. 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 4. Diabetes mellitus. Accu-Cheks will be obtained at the time of the patient's clinic visits. The patient has been reminded that for optimal wound healing, his blood glucoses should remain below 150. 5. Hypertension. Job ID: [id number]
--- NOTE | 2019-07-24 12:10 | PRG ---
DATE OF SERVICE: 07/24/2019 Mr. Marques Cowan is seen in Wound Care. He had a diverting colostomy for Langerhans histiocytosis involving the sacrum, perineum, and perianal area. He has been placing powder on the wounds. The sacral wound is healed. The perianal wound and perineal wound are remarkably improved. He is receiving chemotherapy with Oncology. Overall, he is doing well. I will continue treatment. This seems to be clearing. I will see him in Wound Care in the next upcoming few weeks. Job ID: [id number]
[2019-07-24] MEDS ORDERED: Sodium Chloride 0.9% 15 ML NEB ONE (17:00)
== END 2019-07-24 14:53 | disposition home or self-care (01) ==
LOC: WCC 14:52
PROVIDERS: ATTEND Family Medicine
DX: T81.89XD Other complications of procedures, not elsewhere classified, subsequent encounter (principal); E11.9 Type 2 diabetes mellitus without complications; I10 Essential (primary) hypertension; C96.6 Unifocal Langerhans-cell histiocytosis; J43.9 Emphysema, unspecified
CPT/HCPCS: 97602; A4218

== ENCOUNTER 2019-08-02 11:21 | Emergency (ER) | payer OTHER ==
[2019-08-02] MEDS ORDERED: Morphine 4 MG/ML VIAL ONE (12:23)
[2019-08-02 12:31] LABS: Bilirubin Negative (Negative); Blood, Urine Negative (Negative); Clarity Clear (Clear); Glucose, Urine (Dipstick) Normal (Negative); Leukocyte Negative Leu/uL (Negative); Nitrite Negative (Negative); Protein, Urine (Dipstick) Negative (Neg-Trace); Urobilinogen Normal mg/dL (Less than 2)
[2019-08-02 12:41] LABS: Hemoglobin 9.5 g/dL (14.0-18.0); Mean Corpuscular HGB CONC 32.3 g/dL (32.0-36.0); Mean Corpuscular Hemoglobin 25.8 pg (27.0-31.0); Mean Platelet Volume 7.6 fL (7.4-10.4); Platelet Count 355 thou/uL (130-400); RBC Distribution Width 16.8 % (11.5-14.5); Red Blood Cell (RBC) Count 3.69 mill/uL (4.70-6.10); White Blood Cell (WBC) Count 5.8 thou/uL (4.8-10.8)
[2019-08-02 13:03] LABS: Band 22 % (5-11); Eosinophils 1 % (0-10); Lymphocytes 37 % (21-51); MDiff Complete? YES; Metamyelocyte 3 % (0-0); Monocytes 22 % (0-10); Myelocyte 1 % (0-0); Neutrophil 14 % (42-75); Ovalocytes SLIGHT = 2-5 cells (100X) (0-1/hpf); Platelet Morphology Comment Appears Adequate; Polychromasia SLIGHT = 2-3 cells (100X) (0-2/hpf); Tear Drops SLIGHT = 2-5 cells (100X) (0-1/hpf)
[2019-08-02 13:09] LABS: ALT (SGPT) 16 U/L (8-55); AST (SGOT) 15 U/L (5-34); Albumin 3.5 g/dL (3.5-5.0); Alkaline Phosphatase 112 U/L (40-110); Anion Gap 12 mmol/L (10-20); BUN (Urea Nitrogen) 7 mg/dL (8.9-20.6); Bilirubin, Total Less than 0.2 mg/dL (0.2-1.2); Calc. Creatinine Clearance 0 mL/min (70-130); Calcium 8.1 mg/dL (7.8-10.44); Carbon Dioxide 20 mmol/L (22-29); Chloride 106 mmol/L (98-107); Estimated GFR-MDRD 66; Globulin 3.9 g/dL (2.4-3.5); Glucose 96 mg/dL (70-105); Lipase 19 U/L (8-78); Potassium 3.4 mmol/L (3.5-5.1); Protein, Total 7.4 g/dL (6.0-8.3); Sodium 135 mmol/L (136-145)
--- NOTE | 2019-08-02 14:12 | CT ---
CT ABDOMEN AND PELVIS WITH IV CONTRAST: 08/02/2019 PROVIDED CLINICAL HISTORY: Pain around ostomy. COMPARISON: 06/06/2019 FINDINGS: Partially visualized cystic changes involving the lung bases again demonstrated. Diffuse fatty infiltration of the liver is redemonstrated. The solid abdominal organs demonstrate an otherwise unremarkable CT appearance. Interval left mid abdomen end colostomy. Nonspecific reticulation of the subcutaneous adipose tissue about the ostomy. There is no evidence for bowel obstruction. No additional inflammatory fat stranding. No evidence for free intraperitoneal fluid or free intraperitoneal air. Nonspecific fluid density is seen within the small bowel and right colon. The osseous structures demonstrate no concerning osteoblastic or osteolytic lesions. IMPRESSION: 1. Nonspecific reticulation of the fat within and about the colostomy. Correlate for concerns for ce llulitis. 2. Nonspecific fluid density within the small bowel and portions of the colon, which can be seen in t he setting of a diarrheal illness. POS: [facility]
[2019-08-02] MEDS ORDERED: ISOVUE-370 76%-LOCM 1 ML ONE (20:40)
== END 2019-08-02 14:32 | disposition home or self-care (01) ==
LOC: ERS 11:21
DX: R10.9 Unspecified abdominal pain (principal); R19.7 Diarrhea, unspecified; R10.815 Periumbilic abdominal tenderness; R10.814 Left lower quadrant abdominal tenderness; E11.9 Type 2 diabetes mellitus without complications; J45.909 Unspecified asthma, uncomplicated; Z87.891 Personal history of nicotine dependence; Z79.51 Long term (current) use of inhaled steroids; Z79.01 Long term (current) use of anticoagulants; Z79.899 Other long term (current) drug therapy
CPT/HCPCS: 74177; 80053; 81003; 83605; 83690; 85025; 85060; 96361; 96374; J2270; Q9966

== ENCOUNTER 2019-08-07 09:19 | Day surgery (SDC) | payer OTHER ==
[2019-08-07] MEDS ORDERED: Sodium Chloride 0.9% 30 ML ONE (09:53)
[2019-08-07 09:55] VITALS: BP 130/72; TEMP 97.9
== END 2019-08-07 12:25 | disposition home or self-care (01) ==
LOC: ONC/OP 09:19
PROVIDERS: ATTEND Internal Medicine Hematology & Oncology
DX: Z51.11 Encounter for antineoplastic chemotherapy (principal); C96.0 Multifocal and multisystemic (disseminated) Langerhans-cell histiocytosis; E11.9 Type 2 diabetes mellitus without complications; J44.9 Chronic obstructive pulmonary disease, unspecified; Z87.891 Personal history of nicotine dependence
CPT/HCPCS: 36415; 80053; 82248; 83615; 84100; 84550; 96375; 96413; 96415; J1642; J2405; J2920; J7050; J9100

== ENCOUNTER 2019-08-07 16:05 | Outpatient (CLI) | payer OTHER ==
--- NOTE | 2019-08-07 14:33 | PRG ---
DATE OF SERVICE: 08/07/2019 SUBJECTIVE: Mr. Don Cowan is a very pleasant 48-year-old gentleman, accompanied by his and daughter, who [facility] for evaluation of wounds of the perineum. Histologic examination previously revealed foci of Langerhans cell histiocytosis. The patient has been receiving chemotherapy, which he will complete in the near future. The patient has undergone diverting colostomy by Dr. Martin, followed by a revision of the colostomy by Dr. Reid. Since the patient's last visit, he has been receiving dressing changes of Multidex powder and ABDs on a daily basis and as needed after cleansing and irrigation with the assistance of his . OBJECTIVE: VITAL SIGNS: Temperature 98.0, pulse 77, respirations 16, blood pressure 120/55. Accu-Chek 136. BACK: Three perineal wounds are present. No purulent drainage is associated with any of the wounds. No erythema of the skin surrounding any of the wounds is present. No maceration of the skin of the periwound of any of the wounds is noted. ASSESSMENT AND PLAN: 1. Perineal wounds as described above. As stated above, histologic examination previously revealed foci of Langerhans cell histiocytosis. Also, as stated above, the patient will complete his course of chemotherapy in the near future. Dressing changes of Multidex powder and ABDs will be continued on a daily basis and as needed after cleansing and irrigation with the assistance of the patient's . After completion of the patient's course of chemotherapy, Mr. Marques Cowan is scheduled to undergo imaging followed by an appointment with Oncology. I will see Mr. Marques Cowan again in 3 weeks. 2. Chronic obstructive pulmonary disease. 3. 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 4. Diabetes mellitus. The patient's Accu-Chek in clinic today is 136. The patient has been reminded that for optimal wound healing. His blood glucoses should remain below 150. 5. Hypertension. Job ID: [id number]
[~2019-08-07 16:05] MED LIST changes: -Bacteriostatic Water 30 ML VIAL FS PRN; -CYTARABINE IVPB SCH; -Ondansetron 2MG/ML MDV 10 MG in Sodium Chloride 0.9% 50 ML IVPB SCH; -SODIUM CHLORIDE 0.9% IVPB SCH; +Sodium Chloride 0.9% 15 ML NEB ONE; -methylPREDNISolone Sod Succ 40 MG VIAL IVP SCH
== END 2019-08-07 16:06 | disposition home or self-care (01) ==
LOC: WCC 16:05
PROVIDERS: ATTEND Family Medicine
DX: S31.501D Unspecified open wound of unspecified external genital organs, male, subsequent encounter (principal); J44.9 Chronic obstructive pulmonary disease, unspecified; J43.9 Emphysema, unspecified; C96.6 Unifocal Langerhans-cell histiocytosis; E11.9 Type 2 diabetes mellitus without complications; I10 Essential (primary) hypertension
CPT/HCPCS: A4218

== ENCOUNTER 2019-08-08 11:23 | Day surgery (SDC) | payer OTHER ==
[~2019-08-08 11:23] MED LIST changes: +Bacteriostatic Water 30 ML VIAL FS PRN; +CYTARABINE IVPB SCH; +Ondansetron 2MG/ML MDV 10 MG in Sodium Chloride 0.9% 50 ML IVPB SCH; +SODIUM CHLORIDE 0.9% IVPB SCH; -Sodium Chloride 0.9% 15 ML NEB ONE; +methylPREDNISolone Sod Succ 40 MG VIAL IVP SCH
[2019-08-08] MEDS ORDERED: Sodium Chloride 0.9% 30 ML ONE (11:28)
[2019-08-08 12:40] VITALS: BP 108/59
== END 2019-08-08 15:33 | disposition home or self-care (01) ==
LOC: ONC/OP 11:23
PROVIDERS: ATTEND Internal Medicine Hematology & Oncology
DX: Z51.11 Encounter for antineoplastic chemotherapy (principal); C96.0 Multifocal and multisystemic (disseminated) Langerhans-cell histiocytosis; D70.8 Other neutropenia
CPT/HCPCS: 96375; 96413; 96415; J1642; J2405; J2920; J7050; J9100

== ENCOUNTER 2019-08-09 10:29 | Day surgery (SDC) | payer OTHER ==
[2019-08-09] MEDS ORDERED: Sodium Chloride 0.9% 20 ML ONE (10:33)
== END 2019-08-09 13:03 | disposition home or self-care (01) ==
LOC: ONC/OP 10:29
PROVIDERS: ATTEND Internal Medicine Hematology & Oncology
DX: Z51.11 Encounter for antineoplastic chemotherapy (principal); C96.0 Multifocal and multisystemic (disseminated) Langerhans-cell histiocytosis
CPT/HCPCS: 96375; 96413; 96415; J1642; J2405; J2920; J7050; J9100

== ENCOUNTER 2019-08-10 09:52 | Day surgery (SDC) | payer OTHER ==
[~2019-08-10 09:52] MED LIST changes: -Bacteriostatic Water 30 ML VIAL FS PRN; -Ondansetron 2MG/ML MDV 10 MG in Sodium Chloride 0.9% 50 ML IVPB SCH; +Ondansetron PF 4 MG/2 ML Vial IVP SCH
[2019-08-10] MEDS ORDERED: Sodium Chloride 0.9% 20 ML ONE (09:55)
[2019-08-10] MEDS ORDERED: Ondansetron 2MG/ML MDV 10 MG in Sodium Chloride 0.9% 50 ML IVPB SCH (10:00)
[2019-08-10] MEDS ORDERED: SODIUM CHLORIDE 0.9% IVPB SCH (10:15)
[2019-08-10] MEDS ORDERED: CYTARABINE IVPB SCH (10:15)
== END 2019-08-10 13:27 | disposition home or self-care (01) ==
LOC: ONC/OP 09:52
PROVIDERS: ATTEND Internal Medicine Hematology & Oncology
DX: Z51.11 Encounter for antineoplastic chemotherapy (principal); C96.0 Multifocal and multisystemic (disseminated) Langerhans-cell histiocytosis; D70.8 Other neutropenia
CPT/HCPCS: 96375; 96413; 96415; J1642; J2405; J2920; J7050; J9100

== ENCOUNTER 2019-08-11 10:30 | Day surgery (SDC) | payer OTHER ==
[2019-08-11] MEDS ORDERED: methylPREDNISolone Sod Succ 40 MG VIAL IVP SCH (11:15)
[2019-08-11] MEDS ORDERED: SODIUM CHLORIDE 0.9% IVPB SCH (11:15)
[2019-08-11] MEDS ORDERED: CYTARABINE IVPB SCH (11:15)
[2019-08-11] MEDS ORDERED: Ondansetron HCl/PF 10 MG in Sodium Chloride 0.9% 50 ML IVPB SCH (11:15)
[2019-08-11] MEDS ORDERED: Sodium Chloride 0.9% 20 ML ONE (11:40)
== END 2019-08-11 15:10 | disposition home or self-care (01) ==
LOC: ONC/OP 10:30
PROVIDERS: ATTEND Internal Medicine Hematology & Oncology
DX: Z51.11 Encounter for antineoplastic chemotherapy (principal); C96.0 Multifocal and multisystemic (disseminated) Langerhans-cell histiocytosis; D70.8 Other neutropenia
CPT/HCPCS: 96375; 96413; 96415; J1642; J2405; J2920; J7050; J9100

== ENCOUNTER 2019-09-01 08:58 | Outpatient (CLI) | payer OTHER ==
--- NOTE | 2019-09-01 15:12 | PET ---
Radionucleotide PET scan with CT attenuation correction HISTORY: Multifocal and disseminated Langerhans' cell histiocytosis. Restaging. COMPARISON: 05/11/2019. FINDINGS: Physiologic uptake of radiotracer throughout the enteric system and along each urinary trac t. Increased uptake previously seen at the right maxilla and associated teeth shows no hypermetabolic activity on today's exam. Within the right upper posterior/medial thoracic cavity, multifocal linear uptake, favored to associa yonny with pleura, is similar in distribution and appearance to previous exam. Maximum SUV 6.1 (previously 5.2). The tiny hypermetabolic focus at the posterolateral pleura at the level of the superior segment right lower lobe now shows maximum SUV 2.5 (previously 2.6). Tiny hypermetabolic substernal lymph node now with maximum SUV 2.3 (previously 2.5). Uptake associated with the right lower paraesophageal lymph node now with maximum SUV 6.4 (previously 4.8). IMPRESSION: Very little change in hypermetabolic activity associated with right thoracic pleural abno rmalities and nonenlarged thoracic lymph nodes. No new abnormalities. Interval resolution of the hypermetabolic activity associated with dental disease.
== END 2019-09-01 08:59 | disposition home or self-care (01) ==
LOC: PET 08:58
PROVIDERS: ATTEND Internal Medicine Hematology & Oncology
DX: N28.89 Other specified disorders of kidney and ureter (principal); E27.8 Other specified disorders of adrenal gland; R59.0 Localized enlarged lymph nodes
CPT/HCPCS: 78815; A9552

== ENCOUNTER 2019-09-04 13:48 | Outpatient (CLI) | payer OTHER ==
[~2019-09-04 13:48] MED LIST changes: -CYTARABINE IVPB SCH; -Ondansetron PF 4 MG/2 ML Vial IVP SCH; -SODIUM CHLORIDE 0.9% IVPB SCH; +Sodium Chloride 0.9% 15 ML NEB ONE; -methylPREDNISolone Sod Succ 40 MG VIAL IVP SCH
--- NOTE | 2019-09-04 14:59 | PRG ---
DATE OF SERVICE: 09/04/2019 HISTORY: Mr. Don Cowan is a very pleasant 49-year-old gentleman, who presents to the [facility] for evaluation of wounds of the perineum. Histologic examination previously revealed foci of Langerhans cell histiocytosis. The patient has completed a course of chemotherapy. The patient has also undergone diverting colostomy by Dr. Martin, followed by a revision of the colostomy by Dr. Reid. Since the patient's last visit, the patient has been receiving dressing changes of Multidex powder and ABDs on a daily basis and as needed after cleansing and irrigation with the assistance of his . PHYSICAL EXAMINATION: VITAL SIGNS: Temperature 97.7, pulse 86, respirations 16, and blood pressure 133/72. Accu-Chek 113. BACK: The perineal wounds have improved in their appearance since the patient's last visit. No purulent drainage is associated with any of the wounds. No erythema of the skin surrounding any of the wounds is present. No maceration of the skin of the periwound of any of the wounds is noted. ASSESSMENT AND PLAN: 1. Perineal wound as described above. Histologic examination previously revealed foci of Langerhans cell histiocytosis. As stated above, the patient has completed a course of chemotherapy. The patient apparently will be seen again by Oncology on 10/16/2019. I will see Mr. Marques Cowan again after he has been seen by Oncology. In the meantime, dressing changes of Multidex powder and ABDs will be continued on a daily basis and as needed after cleansing and irrigation with the assistance of the patient's . 2. Chronic obstructive pulmonary disease. 3. 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 4. Diabetes mellitus. The patient's Accu-Chek in clinic today is 113. The patient has been reminded that for optimal wound healing, his blood glucoses should remain below 150. 5. Hypertension. Job ID: [id number]
== END 2019-09-04 13:49 | disposition home or self-care (01) ==
LOC: WCC 13:48
PROVIDERS: ATTEND Family Medicine
DX: S31.501D Unspecified open wound of unspecified external genital organs, male, subsequent encounter (principal); J44.9 Chronic obstructive pulmonary disease, unspecified; C96.6 Unifocal Langerhans-cell histiocytosis; J43.9 Emphysema, unspecified; E11.9 Type 2 diabetes mellitus without complications; I10 Essential (primary) hypertension
CPT/HCPCS: 36415; 80053; 82248; 82728; 83540; 83550; 83615; 84100; 84550; A4218

== ENCOUNTER 2019-10-19 09:24 | Outpatient (CLI) | payer OTHER ==
--- NOTE | 2019-10-19 10:04 | PRG ---
DATE OF SERVICE: 10/19/2019 HISTORY: Mr. Don Cowan is a very pleasant 49-year-old gentleman, who presents to the [facility] for evaluation of wounds of the perineum. Histologic examination previously revealed foci of Langerhans cell histiocytosis. The patient has completed a course of chemotherapy. The patient has also undergone diverting colostomy by Dr. Martin, followed by a revision of the colostomy by Dr. Reid. Since the patient's last visit, the patient has been receiving dressing changes of Multidex powder and ABDs on a daily basis and is needed after cleansing and irrigation with the assistance of his . The patient's daughter states that Mr. Marques Cowan is to undergo PET scan on 11/30/2018. She states that the decision will then be made by Oncology as to the need for further treatment of Langerhans cell histiocytosis. PHYSICAL EXAMINATION: VITAL SIGNS: Temperature 98.5, pulse 86, respirations 19, and blood pressure 120/70. Accu-Chek 160. BACK: Multiple painful perineal wounds are present. No purulent drainage is associated with any of the wounds. No erythema of the skin surrounding any of the wounds is present. No maceration of the skin of the periwound of any of the wounds is noted. ASSESSMENT AND PLAN: 1. Perineal wounds as described above. Histologic examination previously revealed foci of Langerhans cell histiocytosis. As stated above, the patient has completed a course of chemotherapy. The patient will undergo PET scan on 11/30/2018. Apparently, a decision will be made after PET scan as to the need for further treatment of Langerhans cell histiocytosis. In the meantime, dressing changes of Xeroform gauze and ABDs are to be performed on a daily basis and as needed after cleansing and irrigation with the assistance of the patient's . The patient's daughter states that Mr. Marques Cowan will follow up in the wound center in 3 to 4 weeks. 2. Chronic obstructive pulmonary disease. 3. 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 4. Diabetes mellitus. The patient's Accu-Chek in clinic today is 160. The patient has been reminded that for optimal wound healing, his blood glucoses should remain below 150. 5. Hypertension. Job ID: [id number]
[2019-10-19] MEDS ORDERED: Sodium Chloride 0.9% 15 ML NEB ONE (13:03)
== END 2019-10-19 09:25 | disposition home or self-care (01) ==
LOC: WCC 09:24
PROVIDERS: ATTEND Family Medicine
DX: T81.89XD Other complications of procedures, not elsewhere classified, subsequent encounter (principal); J44.9 Chronic obstructive pulmonary disease, unspecified; I10 Essential (primary) hypertension; E11.9 Type 2 diabetes mellitus without complications; C96.6 Unifocal Langerhans-cell histiocytosis
CPT/HCPCS: A4218

== ENCOUNTER 2019-10-28 10:17 | Emergency (ER) | payer OTHER, SELFPAY ==
[2019-10-28] MEDS ORDERED: Metoclopramide HCl 10 MG/2 ML VIAL ONE (10:42)
[2019-10-28] MEDS ORDERED: Acetaminophen 500 MG TAB ONE (10:42)
[2019-10-28] MEDS ORDERED: diphenhydrAMINE 50 MG/ML VIAL ONE (10:42)
--- NOTE | 2019-10-28 11:09 | RAD ---
EXAM: Chest 2 views: HISTORY: Headache since this morning COMPARISON: 03/11/2016 FINDINGS: There is a normal-sized cardiomediastinal silhouette. There is a right-sided Mediport with its tip i n the superior vena cava. Increased interstitial markings are stable. There is a small right pleural effusion. No consolidation is seen. The bones are unremarkable. IMPRESSION: Small right pleural effusion
[2019-10-28 11:16] LABS: #Basophils 0.1 thou/uL (0.0-0.2); #Eosinphils 0.1 thou/uL (0.0-0.7); #Lymphocytes 1.8 thou/uL (1.20-3.40); #Monocytes 0.3 thou/uL (0.11-0.59); #Neutrophils 3.7 thou/uL (1.40-6.50); %Basophils 1.3 % (0.0-1.0); %Lymphocytes 29.9 % (21.0-51.0); %Monocytes 5.1 % (0.0-10.0); %Neutrophils 62.8 % (42.0-75.0); Mean Corpuscular HGB CONC 32.5 g/dL (32.0-36.0); Mean Corpuscular Hemoglobin 26.4 pg (27.0-31.0); Mean Corpuscular Volume 81.3 fL (78.0-98.0); Mean Platelet Volume 7.8 fL (7.4-10.4); Platelet Count 187 thou/uL (130-400); RBC Distribution Width 15.5 % (11.5-14.5); Red Blood Cell (RBC) Count 4.16 mill/uL (4.70-6.10)
[2019-10-28 11:37] LABS: ALT (SGPT) 19 U/L (8-55); AST (SGOT) 20 U/L (5-34); Albumin 3.5 g/dL (3.5-5.0); Alkaline Phosphatase 96 U/L (40-110); Anion Gap 13 mmol/L (10-20); BUN (Urea Nitrogen) 8 mg/dL (8.9-20.6); Bilirubin, Total 0.3 mg/dL (0.2-1.2); Calc. Creatinine Clearance 0 mL/min (70-130); Calcium 8.7 mg/dL (7.8-10.44); Carbon Dioxide 28 mmol/L (22-29); Chloride 104 mmol/L (98-107); Estimated GFR-MDRD 75; Globulin 4.2 g/dL (2.4-3.5); Glucose 199 mg/dL (70-105); Magnesium 1.9 mg/dL (1.6-2.6); Potassium 3.6 mmol/L (3.5-5.1); Protein, Total 7.7 g/dL (6.0-8.3); Sodium 141 mmol/L (136-145)
--- NOTE | 2019-10-28 11:57 | CT ---
EXAM: CT brain without contrast HISTORY: Headache COMPARISON: None TECHNIQUE: Multiple contiguous axial images were obtained and a CT of the brain without contrast. FINDINGS: The brain is normal in morphology and attenuation without focal lesions or confluent areas of infarction. There is no evidence of hydrocephalus, intracranial hemorrhage, or extra-axial fluid collection. The calvarium and overlying soft tissues are unremarkable. There is hypoplasia of the left mastoid ai r cells. The visualized paranasal sinuses and right mastoid air cells are well aerated. IMPRESSION: No evidence of acute intracranial abnormality
== END 2019-10-28 12:45 | disposition home or self-care (01) ==
LOC: ERS 10:17
DX: L03.811 Cellulitis of head [any part, except face] (principal); L03.221 Cellulitis of neck; L03.312 Cellulitis of back [any part except buttock and flank]; B00.9 Herpesviral infection, unspecified; R51 Headache; E11.9 Type 2 diabetes mellitus without complications; J45.909 Unspecified asthma, uncomplicated; Z87.891 Personal history of nicotine dependence; Z79.51 Long term (current) use of inhaled steroids
CPT/HCPCS: 70450; 71046; 80053; 83605; 83735; 85025; 86850; 86900; 86901; 87040; 87804; 93005; 96365; 96366; 96375; J1200; J2765

== ENCOUNTER 2019-11-28 08:57 | Outpatient (CLI) | payer OTHER ==
--- NOTE | 2019-11-28 12:01 | PET ---
EXAM: PET/CT HISTORY: History of disseminated Langerhans' cell histiocytosis TECHNIQUE: PET scanning with CT attenuation correction was performed from the base of the brain to the proximal thighs following the intravenous administration of 11.1 millicuries [id number]. COMPARISON: PET/CT dated September 01, 2019 FINDINGS: Biodistribution:The biodistribution for the exam appears acceptable. Head and neck: There is appropriate background activity within the brain. There is increased hypermet abolic uptake involving the palatine tonsils. The peak SUV activity associated with the palatine tonsils now measures 6.08 and a mean value of 5.44 where previously the peak activity was 3.76 with a mean activity of 3.76. There is new mildly hypermetabolic bilateral level 2A lymph nodes. The most prominent lymph node on the right, measures 1 cm with a peak SUV activity of 3.13 and a mean activit y 2.74. Thorax: The hypermetabolic pleural soft tissue plaques demonstrate increased hypermetabolic activity. A large grouping of pleural plaques along the posterior medial aspect of the right upper hemithorax has a peak activity of 5.5 and a mean activity of 4.02 were previously peak activity was 4 .04. An additional mildly prominent posterior medial pleural plaque has a peak activity of 7.24 and a mean activity of 6.55 where the previous exam had a peak activity of 5.73. The substernal mediastin al plaque has a peak activity of 3.13 were previously was 2.34. The paraesophageal plaque has a peak activity at 10.24 and a mean activity 9.39. There is a new pleural-based hypermetabolic plaque involving the posterior lateral right lower lobe measuring approximately 3.92 cm. The peak activity associated with this nodule is 6.22 and a mean activity of 5.35. The fibrotic lung change and scatter ed pulmonary cysts are largely stable appearing. No new hypermetabolic pulmonary nodules or pleural effusion is demonstrated. Abdomen and pelvis: There is expected background activity within the GI and systems. No hypermetab olic mass, lymphadenopathy or ascites is present. There is a stable left mid abdominal wall colostomy. Small amount of activity is seen near the stoma which is likely related to background bowel activity. There is stable prominent fatty infiltration of the liver with a calcified granuloma in the right hepatic dome. There is recurrent hypermetabolic activity seen at the level of the anus with a peak activity now measuring 10.03 mean activity now measuring 8.76. Previously the peak activity was 5.04. There is worsening hypermetabolic nodularity s een along the midline gluteal cleft suspicious for hypermetabolic skin nodules. Peak activity associated with one of these nodules is 9.05 with a mean activity 8.44. Additional skin nodule is see n within the right aspect of the perineum. Osseous structures and skin: No hypermetabolic skin or osseous lesion is identified. IMPRESSION: Abnormal PET/CT Findings consistent with progression of disease. There is worsening hypermetabolic lymphadenopathy wi thin the upper neck. There is worsening hypermetabolic activity and new hypermetabolic pleural plaques involving the right hemithorax. There is worsening hypermetabolic activity seen at the level of the anus. There is worsening skin activity involving the midline gluteal cleft and in the right aspect of the perineum suspicious for hypermetabolic skin nodules. Recommend correlation with the cli nical exam.
== END 2019-11-28 08:58 | disposition home or self-care (01) ==
LOC: PET 08:57
PROVIDERS: ATTEND Internal Medicine Hematology & Oncology
DX: C96.0 Multifocal and multisystemic (disseminated) Langerhans-cell histiocytosis (principal); R59.0 Localized enlarged lymph nodes
CPT/HCPCS: 78815; A9552

== ENCOUNTER 2019-12-13 11:03 | Day surgery (SDC) | payer OTHER ==
[~2019-12-13 11:03] MED LIST changes: +Ferumoxytol (NON ERSD) 510 MG in Sodium Chloride 0.9% 250 ML 150 ML IVPB SCH; +Ondansetron 2MG/ML MDV 10 MG in Sodium Chloride 0.9% 50 ML IVP SCH; +SODIUM CHLORIDE 0.9% IVPB SCH; -Sodium Chloride 0.9% 15 ML NEB ONE; +VINBLASTINE SULFATE IVPB SCH; +predniSONE 20 MG TAB PO SCH
[2019-12-13] MEDS ORDERED: Sodium Chloride 0.9% 20 ML ONE (12:23)
[2019-12-13 15:03] VITALS: BP 120/70; TEMP 98.2
== END 2019-12-13 15:04 | disposition home or self-care (01) ==
LOC: ONC/OP 11:03
PROVIDERS: ATTEND Internal Medicine Hematology & Oncology
DX: Z51.11 Encounter for antineoplastic chemotherapy (principal); C96.0 Multifocal and multisystemic (disseminated) Langerhans-cell histiocytosis; D50.0 Iron deficiency anemia secondary to blood loss (chronic); D70.8 Other neutropenia
CPT/HCPCS: 96367; 96376; 96409; J1642; J2405; J7050; J9360; Q0138

== ENCOUNTER 2019-12-20 10:16 | Day surgery (SDC) | payer OTHER ==
[~2019-12-20 10:16] MED LIST changes: -predniSONE 20 MG TAB PO SCH
[2019-12-20] MEDS ORDERED: Sodium Chloride 0.9% 20 ML ONE (10:55)
[2019-12-20 16:58] VITALS: BP 116/62; TEMP 98.5
== END 2019-12-20 17:03 | disposition home or self-care (01) ==
LOC: ONC/OP 10:16
PROVIDERS: ATTEND Internal Medicine Hematology & Oncology
DX: Z51.11 Encounter for antineoplastic chemotherapy (principal); C96.0 Multifocal and multisystemic (disseminated) Langerhans-cell histiocytosis; D50.0 Iron deficiency anemia secondary to blood loss (chronic); D70.8 Other neutropenia
CPT/HCPCS: 96367; 96375; 96409; J1642; J2405; J7050; J9360; Q0138

== ENCOUNTER 2019-12-27 11:30 | Day surgery (SDC) | payer OTHER ==
[2019-12-27] MEDS ORDERED: Sodium Chloride 0.9% 20 ML ONE (12:02)
[2019-12-27 13:01] VITALS: BP 102/56; TEMP 99.4
== END 2019-12-27 15:28 | disposition home or self-care (01) ==
LOC: ONC/OP 11:30
PROVIDERS: ATTEND Internal Medicine Hematology & Oncology
DX: Z51.11 Encounter for antineoplastic chemotherapy (principal); C96.0 Multifocal and multisystemic (disseminated) Langerhans-cell histiocytosis; D50.0 Iron deficiency anemia secondary to blood loss (chronic); D70.8 Other neutropenia
CPT/HCPCS: 80053; 82248; 83615; 84100; 84550; 96365; 96372; J1447; J1642; J2405; J7050; Q0138

== ENCOUNTER 2019-12-28 10:59 | Inpatient (IN) | payer OTHER ==
[2019-12-28] MEDS ORDERED: Cefepime 2 GM VIAL ONE (11:35)
[2019-12-28 11:36] LABS: Hemoglobin 9.8 g/dL (14.0-18.0); Mean Corpuscular HGB CONC 32.6 g/dL (32.0-36.0); Mean Corpuscular Hemoglobin 25.9 pg (27.0-31.0); Mean Corpuscular Volume 79.4 fL (78.0-98.0); Mean Platelet Volume 9.7 fL (7.4-10.4); Platelet Count 161 thou/uL (130-400); RBC Distribution Width 12.9 % (11.5-14.5); Red Blood Cell (RBC) Count 3.78 mill/uL (4.70-6.10); Reflex for Review?? YES; White Blood Cell (WBC) Count 1.7 thou/uL (4.8-10.8)
--- NOTE | 2019-12-28 11:45 | RAD ---
SINGLE VIEW OF THE CHEST: COMPARISON: 10/16/2018. HISTORY: Fever and sepsis. FINDINGS: A single view of the chest shows a normal size cardiomediastinal silhouette. A MediPort is unchanged in position. Diffuse increased interstitial markings are stable. There is blunting of the right co stophrenic angle which may represent scarring or a small right pleural effusion. No change has occur red compared to the prior exam. IMPRESSION: Stable exam. POS: T[facility]
[2019-12-28 11:58] LABS: ALT (SGPT) 16 U/L (8-55); AST (SGOT) 21 U/L (5-34); Albumin 3.4 g/dL (3.5-5.0); Alkaline Phosphatase 80 U/L (40-110); Anion Gap 13 mmol/L (10-20); BUN (Urea Nitrogen) 10 mg/dL (8.9-20.6); Bilirubin, Total 0.6 mg/dL (0.2-1.2); Calc. Creatinine Clearance 0 mL/min (70-130); Calcium 8.7 mg/dL (7.8-10.44); Carbon Dioxide 27 mmol/L (22-29); Chloride 99 mmol/L (98-107); Estimated GFR-MDRD 51; Globulin 4.7 g/dL (2.4-3.5); Glucose 141 mg/dL (70-105); Protein, Total 8.1 g/dL (6.0-8.3); Sodium 136 mmol/L (136-145)
[2019-12-28 12:02] LABS: Potassium 2.9 mmol/L (3.5-5.1)
[2019-12-28 12:11] LABS: Lymphocytes 89 % (21-51); MDiff Complete? YES; Microcytosis SLIGHT = 6-15 cells (100X) (0-5/hpf); Monocytes 9 % (0-10); Neutrophil 0 % (42-75); Platelet Morphology Comment Appears Adequate; Polychromasia SLIGHT = 2-3 cells (100X) (0-2/hpf); Reactive Lymphocytes 2 % (0-10)
[2019-12-28] MEDS ORDERED: Potassium Chloride 20 MEQ TAB ONE (12:21)
[2019-12-28 12:33] LABS: Bacteria/HPF None Seen HPF (None Seen); Bilirubin Negative (Negative); Blood, Urine Negative (Negative); Clarity Clear (Clear); Glucose, Urine (Dipstick) Normal (Negative); Leukocyte Negative Leu/uL (Negative); Nitrite Negative (Negative); Protein, Urine (Dipstick) 30 mg/dL (Neg-Trace); RBC/HPF None Seen HPF (0-3); Squamous Epithelial 0-3 HPF (0-3); WBC/HPF 0-3 HPF (0-3)
[2019-12-28] MEDS ORDERED: Potassium Chloride 40 MEQ in Sodium Chloride 0.9% 250 ML 250 ML IVPB SCH (12:45)
[2019-12-28] MEDS ORDERED: Acetaminophen 500 MG TAB ONE (13:27)
[2019-12-28 14:29] LABS: Lactic Acid 1.3 mmol/L (0.5-2.2)
[2019-12-28] MEDS ORDERED: Sodium Chloride 0.9% 1,000 ML IV SCH (16:21)
[2019-12-28] MEDS ORDERED: Cefepime 2 GM in Sodium Chloride 0.9% 100 ML IVPB SCH (20:00)
[2019-12-28] MEDS: Cefepime 1 GM in Sodium Chloride 0.9% 100 ML IVPB SCH (20:22)
[2019-12-28] MEDS: Sodium Chloride 0.9% 1,000 ML IV SCH ×2 (20:22→20:23)
[2019-12-28] MEDS ORDERED: PROVENTIL INHALER 6.7 G (200 INHALATIONS) INH PRN (21:34)
[2019-12-28] MEDS ORDERED: niCARdipine 25 MG in Sodium Chloride 0.9% 250 ML 240 ML IVPB SCH (22:00)
--- NOTE | 2019-12-28 22:11 | HP ---
CHIEF COMPLAINT: Fever. Referral from the Oncology Clinic. HISTORY OF PRESENT ILLNESS: This patient is a 49-year-old male with a history of histiocytosis, Langerhans type, who has history of skin lesions primarily affecting the perirectal area. The patient had previously been treated with some apparent resolution, but then had some recurrence in his resumed treatment. He was followed by Dr. Smith at the [facility]. He presented there yesterday for another round of chemotherapy. However, at that time, his blood counts revealed that he had low white cells and therefore, treatment was postponed. He returned today for repeat labs where he was noted to be febrile. The patient was not aware that he was febrile nor did he have any other symptoms, specifically that would have indicated that he would have had some type of infection. He does have some skin rash that is small, erythematous, circular lesions couple of millimeters in size over his upper chest and back area. He has recently developed significant lesions of the right elbow, left elbow, and the posterior scalp area. REVIEW OF SYSTEMS: The patient has not been eating and drinking much this past week because he has felt poorly. Otherwise, all systems reviewed and were negative. PAST MEDICAL HISTORY: Notable for Langerhans histiocytosis for which he has been treated with chemotherapy. He has also had a diverting colostomy to help with wound healing related to that. History of diabetes mellitus, asthma, and the above mentioned cancer treatments to the Cancer [facility]. PAST SURGICAL HISTORY: The patient had right foot surgery, appendectomy, surgical debridement of the perianal ulcerations and a port placement in the right chest and had a diverting colostomy with subsequent postoperative dehiscence and repeat procedure in June. FAMILY HISTORY: Reviewed, nothing contributory relative to his cancer diagnosis. SOCIAL HISTORY: The patient rarely drinks socially. Denies drugs. He is a former smoker. Lives at home with his family. He is full code and his is his surrogate decision maker. ALLERGIES: NONE. CURRENT MEDICATIONS: 1. Tylenol No. 3. 2. Glyburide 1.25 mg p.o. q.a.c. 3. Nystatin powder one application b.i.d. 4. Ibuprofen 400 mg p.o. b.i.d. p.r.n. 5. Symbicort 160/4.5 two puffs inhaled b.i.d. 6. Albuterol inhaler q.4 hours p.r.n. PHYSICAL EXAMINATION: VITAL SIGNS: Initial temperature 98.3, pulse 82, respirations 18, O2 saturation 93% on room air, and blood pressure 127/72. GENERAL APPEARANCE: Age-appropriate male, Swiss-speaking only. He is awake and alert, very pleasant, cooperative, slightly obese. HEENT: PERRL. No OP lesions. NECK: Supple and symmetric with no lymphadenopathy, JVD, or carotid bruits. HEART: Regular rate and rhythm without murmurs, gallops, or rubs. LUNGS: Clear to auscultation bilaterally with no wheezes or rales. ABDOMEN: Soft, nontender, and nondistended. Positive bowel sounds. No masses. No organomegaly. The left-sided colostomy is in place, appears to have normal output. The site looks relatively healthy. EXTREMITIES: No cyanosis, clubbing, or edema. SKIN: Reveals the multiple erythematous, small circular lesions, couple of millimeters in size, prominently on the face, posterior neck, and back area. There is a larger slightly crusted lesion in the occipital scalp area. There is a skin lesion on the right proximal forearm at the elbow, which is about 1.5 x 5 cm, which is maroon and erythematous with a small blistering at the central portion with a large halo of erythema and slight induration extending over the medial aspect of the distal and proximal elbow areas, which is nontender. PSYCHIATRIC: Normal affect and behavior. NEUROLOGIC: Moves all extremities spontaneously with no focal deficits. LABORATORY DATA: White count is 1.7 with 0% neutrophils, 89% lymphocytes, hemoglobin is 9.8, and platelets 161. Sodium 136, potassium 2.9, chloride 99, CO2 is 27, BUN is 10, creatinine is 1.47, glucose 141, lactic acid 2.1, calcium 8.7, and albumin 3.4. Urinalysis negative. Flu screen negative. IMAGING STUDIES: Chest x-ray, negative. IMPRESSION AND PLAN: 1. Neutropenic sepsis. The patient has an absolute neutrophil count of zero and is profoundly neutropenic. The potential source is the skin lesions, specifically the one on the right elbow. This area was unroofed and culture obtained. The fluid was honey-colored, very thin, and not turbid or purulence. We will cover with broad-spectrum antibiotics including vancomycin and cefepime. We will consult Oncology and Infectious Disease. 2. Severe hypokalemia. This was addressed in the emergency department. We will recheck levels in the morning. 3. Langerhans histiocytosis. The patient is in the midst of chemotherapy, which is currently held awaiting recovery of his white count. 4. Chronic kidney disease, stage 3. His current GFR is consistent with his baseline. 5. Diabetes mellitus. We will continue his usual home regimen and if needed, provide sliding scale as well. 6. History of asthma. Does not appear to be exacerbated. We will continue with his usual home medical regimen. Job ID: [id number]
[2019-12-29] MEDS ORDERED: Vancomycin HCl 1 GM in Premix Bag 1 BAG IVPB SCH (01:00)
[2019-12-29] MEDS: Vancomycin 1.5 GRAM/300 ML BAG 1.5 GM in Premix Bag 1 BAG IVPB SCH ×2 (01:18→16:25)
[2019-12-29] MEDS: Acetaminophen/Codeine 30-300mg Tablet PO PRN ×2 (04:08→15:26)
[2019-12-29] MEDS: Acetaminophen 325 MG TAB PO PRN ×2 (04:13→20:08)
[2019-12-29] MEDS: Cefepime 1 GM in Sodium Chloride 0.9% 100 ML IVPB SCH ×2 (04:14→11:31)
[2019-12-29 06:03] LABS: Anion Gap 11 mmol/L (10-20); BUN (Urea Nitrogen) 7 mg/dL (8.9-20.6); Calc. Creatinine Clearance 131 mL/min (70-130); Carbon Dioxide 23 mmol/L (22-29); Chloride 110 mmol/L (98-107); Estimated GFR-MDRD 86; Glucose 109 mg/dL (70-105); Potassium 3.3 mmol/L (3.5-5.1); Sodium 141 mmol/L (136-145)
[2019-12-29 06:16] LABS: Hemoglobin 8.4 g/dL (14.0-18.0); Mean Corpuscular HGB CONC 32.4 g/dL (32.0-36.0); Mean Corpuscular Hemoglobin 26.3 pg (27.0-31.0); Mean Platelet Volume 9.2 fL (7.4-10.4); Platelet Count 133 thou/uL (130-400); RBC Distribution Width 12.9 % (11.5-14.5); Red Blood Cell (RBC) Count 3.21 mill/uL (4.70-6.10); White Blood Cell (WBC) Count 1.4 thou/uL (4.8-10.8)
[2019-12-29 06:42] LABS: Eosinophils 3 % (0-10); Lymphocytes 85 % (21-51); MDiff Complete? YES; Monocytes 12 % (0-10); Tear Drops SLIGHT = 2-5 cells (100X) (0-1/hpf)
[2019-12-29] MEDS: Mometasone/Formoterol 120 PUFF INHALER INH SCH ×2 (07:40→19:55)
[2019-12-29] MEDS: glyBURIDE 2.5 MG TAB PO SCH ×3 (08:22→17:33)
[2019-12-29] MEDS: Sodium Chloride 0.9% 1,000 ML IV SCH ×2 (08:25→20:09)
[2019-12-29 10:25] VITALS: BMI 37.5
[2019-12-29] MEDS: Nystatin Powder 15 GM BOT TOP SCH ×2 (10:33→20:07)
[2019-12-29] MEDS: Micafungin 100 MG in Sodium Chloride 0.9% 100 ML IVPB SCH (13:16)
--- NOTE | 2019-12-29 13:36 | CON ---
DATE OF CONSULTATION: REASON FOR CONSULTATION: Neutropenic fever. 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 The last chemotherapy treatment was a week before this admission. I had seen him in October when he presented with neutropenia, wounds in the back, and fever, 10/18 that is more than a year ago. Since then, the patient has had a colostomy placed because of the location of his wounds to improve the hygiene and chance for healing. His last PET scan was done in November 2019 and it showed progression of disease with worsening hypermetabolic lymphadenopathy within the upper neck, pleural plaques in the right hemithorax, anal hypermetabolic activity and a midline gluteal cleft and right aspect of perineum skin nodules. Now, he presents with new onset of fever. He was seen in the Cancer Clinic and they referred him for admission, some pleuritic chest pain, rhinorrhea. No headaches. No visual symptoms. No sore throat, odynophagia, or dysphagia. No dental pain. No back pain other than the areas of ulceration in the perineal region. No diarrhea. No genitourinary symptoms. No joint symptoms. He has developed petechial rash in the truncal areas close to the neck as well as in the appendicular skin areas. Initial findings; pulse 129, respiratory rate 28, temperature 102.3, and O2 saturation 93%. Did not appear in distress. He was alert and oriented. The pertinent findings in the exam included clear lung sounds. Heart examination appeared normal. The abdomen showed a colostomy, which appeared normal as well. No tenderness was described. The ulcers were there and initial findings also included white cell count 1.7 with pretty much 0 neutrophils, most of the cells were lymphocytes, hemoglobin 9.8, and platelet count was 161 and a chemistry with a potassium 2.9, the creatinine was 1.47 with a baseline of 1.05 recently. Liver profile normal. Albumin 3.4 and globulin 4.7. Urinalysis with 4.0 urobilinogen, 30 protein, otherwise normal. We have negative influenza test. Two sets of blood cultures, which were no growth to date. A chest x-ray was performed on admission and it did not show alveolar consolidation, but the patient did have diffuse increased interstitial markings. The MediPort was in position. Currently, Mr. Mohan is awake. He does not appear in acute distress, relatives in the room with him, and the 10-point review of system is as above. PAST MEDICAL HISTORY: Langerhans cell histiocytosis, lung, bone and lymph nodes and soft tissue involvement, perineal area, prior pneumothorax, obesity, asthma, colostomy placement for diversion purposes, chemotherapy with two different regimens, most recent one was given about a week before admission. PAST SURGICAL HISTORY: Also includes appendectomy, chest tube placement for management of pneumothorax, and sacral wound debridement. ALLERGIES: NONE. FAMILY HISTORY: Noncontributory. SOCIAL HISTORY: Former smoker, quit a few years ago. CURRENT MEDICATIONS: 1. Cefepime. 2. Vancomycin. 3. Mometasone. 4. Tylenol. 5. Proventil. 6. Dulera. PHYSICAL EXAMINATION: VITAL SIGNS: T-max 102.3 now 101.3, blood pressure 100/63, pulse 101, respirations 16, and O2 saturation 94%. SKIN: Shows areas of petechial eruption in truncal regions as well as appendicular structure skin. Those old chronic ulcers in the perineal region as noted before. He has a number of those in the perianal area with necrotic base quite deep with some undermining, irregular shaped. I would say two or three of those there, and then he also has those new lesions, which have developed since this acute illness presented itself there located in the truncal areas and the appendicular structures as well, number of three or four there was central area of necrosis with surrounding rim of erythema about 1 to 2 cm oval shaped. There is no lymphadenopathy. HEENT: Ocular movements conjugate. Sclerae white. Pupils are equal. Oral cavity is not remarkable, although he has numerous missing teeth. Remainder ones with marked decay and gum disease. NECK: Supple. No jugular vein distention or carotid bruits. The port does not appear inflamed or tender. LUNGS: Symmetric with clear breath sounds. HEART: S1 and S2. Regular rate. No S3 or S4. ABDOMEN: Soft with mild tenderness in the right flank area. Colostomy appears normal. No bladder distention. MUSCULOSKELETAL: No joint inflammatory activity. EXTREMITIES: No edema. Pulses 1+ in dorsalis pedis. Moves extremities equally. NEUROLOGIC: He is awake, oriented, and follows commands. Speech appears normal. Recollection is normal. No delusional thinking process. LABORATORY DATA: Latest labs; white cell count 1.4, hemoglobin 8.4, platelets 133, and 85% neutrophils. ASSESSMENT: 1. Langerhans cell histiocytosis, on chemotherapy. 2. Agranulocytosis, following chemotherapy. 3. Petechial lesions. 4. Port. 5. Necrotic lesions with erythema in various areas of the body skin. 6. Chronic areas of ulceration and necrosis in the perineal area as previously noted. DISCUSSION: Differential diagnosis includes bacteremia or fungemia associated with the neutropenic fever, Pseudomonas aeruginosa, fungal pathogens including Fusarium, Karine, Aspergillus are a concern, Staphylococcus aureus is another concern as well. Colonization of the port will have to be considered depending on results of blood cultures. Viral infections including influenza, need to be considered as well. He may have more than one process ongoing at the same time in view of his immunosuppression. We will add voriconazole or micafungin as well as add a second antipseudomonal agent, probably replace him with meropenem and quinolone instead of cefepime. Continue vancomycin. Monitor blood cultures. I wonder if he would be eligible for growth factor administration to accelerate recovery of the neutrophil count, he may or have already received this though. Job ID: [id number]
[2019-12-29] MEDS ORDERED: Meropenem 1 GM in Sodium Chloride 0.9% 100 ML IVPB SCH (14:00)
[2019-12-29] MEDS: MEROPENEM 1 GM/50 ML 1 GM in Premix Bag 1 BAG IVPB SCH ×2 (15:29→21:36)
--- NOTE | 2019-12-29 20:12 | CON ---
DATE OF CONSULTATION: REASON FOR CONSULTATION: Neutropenic fever. HISTORY OF PRESENT ILLNESS: Mr. Marques Cowan is a pleasant 49-year-old gentleman with multifocal Langerhans cell histiocytosis involving the lung, skin, soft tissue, and bone. He has completed 12 cycles of Sima-C and was in partial remission by PET. He had a recent PET scan, which showed progression of disease in the chest and anal-gluteal region. Nurse noticed worsening lesions around his anus and under his pannus. He has open wound in the perineum. He has had a bout of shingles and cellulitis. He was started on chemotherapy with vinblastine and prednisone. He received his first dose on December 13, followed by a second dose on December 20. He presented to our clinic on the for labs. His white count was 1.4 and hemoglobin was 9.4. He did receive 480 mcg of Neupogen. He presented for followup the next day on and had 103.1 fever. He was referred to the emergency room for further workup. In the emergency room, he has been pancultured and started on empiric antibiotics. ID has been consulted. He has had some diarrhea in his colostomy, but denies any nausea or bleeding. PAST MEDICAL HISTORY: 1. Multifocal Langerhans cell histiocytosis. 2. Diabetes. 3. Asthma. 4. COPD. PAST SURGICAL HISTORY: 1. Calcaneus fracture repair. 2. Appendix surgery. 3. Lung biopsy. 4. Sacral wound debridement. 5. Colostomy. ALLERGIES: NO KNOWN DRUG ALLERGIES. HOME MEDICATIONS: 1. Tylenol No. 3. 2. Proventil. 3. Symbicort. 4. Glyburide. 5. Nystatin. 6. Ibuprofen. FAMILY HISTORY: Mother had lung cancer. SOCIAL HISTORY: , has 2 children. Lives with his , [id number] history of smoking. No alcohol or illicit drug use. REVIEW OF SYSTEMS: Positive for rash, fever, and fatigue. PHYSICAL EXAMINATION: VITAL SIGNS: Temperature is 97.8, pulse is 50, respiratory rate is 18, blood pressure is 98/60, and he is 94% on room air. GENERAL: This is a chronically ill-appearing male, in no acute distress. HEENT: Normocephalic and atraumatic. Pupils are equal and reactive to light. NECK: Supple. CV: Regular rate and rhythm. LUNGS: Clear. ABDOMEN: Soft and nontender. He has colostomy in place. EXTREMITIES: 1+ bilateral lower extremity edema. SKIN: No scattered rash from cancer on his neck scalp. NEUROLOGIC: Nonfocal. PERTINENT LABORATORY DATA AND X-RAYS: Current WBCs 1.4, hemoglobin 8.6, hematocrit 26, platelet count is 133,000, 85% lymphocytes, 12% monocytes. Sodium is 141, potassium 3.3, chloride 110, CO2 is 23, BUN is 7, creatinine 0.94, lactic acid 1.3, calcium 8.0. Bilirubin 0.6, AST is 21, ALT is 16, alkaline phosphatase is 80, serum total protein 8.1, albumin 3.4, and globulin 4.7. Troponin is negative. Chest x-ray showed no acute findings. ASSESSMENT: 1. Neutropenic fever. 2. Langerhans cell histiocytosis, status post cycle 1 of chemotherapy with vinblastine. DISCUSSION: The patient is on empiric antibiotics. Infectious Disease is managing these. His fever has resolved. He did receive a dose of Neupogen in our clinic and I will resume here in the outpatient setting. We will provide supportive care. Thank you for the consult. Job ID: [id number] MTDD
--- NOTE | 2019-12-29 21:24 | PDOC.HOSPP ---
- Subjective Encounter Date: 12/29/19 Subjective: Continue to feel "so so". He has some pain in the right forearm. No other symptoms. - Objective Vital Signs & Weight: Vital Signs (12 hours) Temp Pulse Resp BP BP Pulse Ox 12/29/19 19:55 107 H 16 100 12/29/19 19:06 100.0 F H 103 H 18 104/65 100 12/29/19 15:42 97.8 F 50 L 18 98/60 94 L 12/29/19 11:49 98.3 F 94 17 86/56 L 94 L Weight Admit Weight 212 lb 4.8 oz Weight 212 lb 4.8 oz I&O: 12/28/19 12/29/19 12/30/19 06:59 06:59 06:59 Intake Total 840 Balance 840 Result Diagrams: 12/29/19 05:15 12/29/19 05:15 Additional Labs: Accuchecks 12/29/19 12/29/19 12/29/19 19:07 15:49 12:05 POC Glucose 74 132 H 135 H 12/29/19 12/28/19 03:42 20:53 POC Glucose 111 H 160 H Hospitalist ROS - Medication Medications: Active Medications Generic Name Dose Route Start Last Admin Trade Name Freq PRN Reason Stop Dose Admin Acetaminophen 650 mg 12/28/19 17:03 12/29/19 20:08 Tylenol PO 650 mg Q4H PRN Administration Headache/Fever/Mild Pain (1-3) Acetaminophen/Codeine Phosphate 1 tab 12/28/19 21:45 12/29/19 15:26 Tylenol #3 PO 1 tab Q6H PRN Administration Severe Pain (7-10) Glyburide 1.25 mg 12/29/19 07:30 12/29/19 17:33 Micronase PO 1.25 mg AC SNEHAL Administration Sodium Chloride 1,000 mls @ 75 mls/hr 12/28/19 17:15 12/29/19 20:09 Normal Saline 0.9% IV 1,000 mls .[id number] SNEAHL Administration Vancomycin HCl 1.5 gm/ Device 300 mls @ 200 mls/hr 12/29/19 01:00 12/29/19 16 :25 IVPB 300 mls 0100,1300 SNEHAL Administration Levofloxacin 750 mg/ Device 150 mls @ 100 mls/hr 12/29/19 13:00 12/29/19 13: 19 IVPB 150 mls Q24HR SNEHAL Administration Micafungin Sodium 100 mg/ 100 mls @ 100 mls/hr 12/29/19 12:00 12/29/19 13:16 Sodium Chloride IVPB 100 mls Q24H SNEHAL Administration Meropenem 1 gm/ Device 50 mls @ 200 mls/hr 12/29/19 14:00 12/29/19 15:29 IVPB 50 mls Q8HR SNEHAL Administration Mometasone Furoate/Formoterol Fumar 2 puff 12/29/19 06:30 12/29/19 19:55 Dulera 200 Mcg/5 Mcg Inhaler INH 2 puff BID-RT SNEHAL Administration Nystatin 0 gm 12/29/19 09:00 12/29/19 20:07 Mycostatin Powder TOP 1 applic BID SNEHAL Administration Sodium Chloride 10 ml 12/29/19 21:00 12/29/19 20:09 Flush - Normal Saline IVF Not Given Q12HR SNEHAL - Exam General Appearance: NAD, awake alert General - other findings: Obese ENT: normocephalic atraumatic, no oropharyngeal lesions, moist mucosa Neck: supple, symmetric, no JVD, no thyromegaly, no lymphadenopathy, no carotid bruit Heart: RRR, no murmur, no gallops, no rubs, normal peripheral pulses Respiratory: CTAB, no wheezes, no rales, no ronchi, normal chest expansion, no tachypnea, normal percussion Gastrointestinal: soft, non-tender, non-distended, normal bowel sounds, no palpable masses, no hepatomegaly, no splenomegaly, no bruit Gastrointestinal - other findings: Colostomy Extremities - other findings: Right elbow lesion slighltly larger. Edema, erythema. Skin: normal turgor, no lesions, no rashes Musculoskeletal: normal tone, normal strength, no muscle wasting Psychiatric: normal affect, normal behavior, A&O x 3 Hosp A/P (1) Neutropenic sepsis Code(s): A41.9 - SEPSIS, UNSPECIFIED ORGANISM; D70.9 - NEUTROPENIA, UNSPECIFIED Status: Acute (2) S/P colostomy Code(s): Z93.3 - COLOSTOMY STATUS Status: Acute (3) Asthma Code(s): J45.909 - UNSPECIFIED ASTHMA, UNCOMPLICATED Status: Chronic (4) Diabetes mellitus Code(s): E11.9 - TYPE 2 DIABETES MELLITUS WITHOUT COMPLICATIONS Status: Chronic Qualifiers: Diabetes mellitus type: type 2 Diabetes mellitus senior living insulin use: without moth exterminator use (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 Appreciate ID recommendations. Broad coverage for bacterial infection and fungal infection. Right elbow lesion may be from histiocytosis. Culture is negative. Had GSF administered at the Onc clinic. Blood sugars good. BP ok. Borderline low. No evidence of active asthma.
[2019-12-30] MEDS: Vancomycin 1.5 GRAM/300 ML BAG 1.5 GM in Premix Bag 1 BAG IVPB SCH ×2 (01:56→12:48)
[2019-12-30] MEDS: Acetaminophen 325 MG TAB PO PRN ×3 (04:35→20:56)
[2019-12-30] MEDS ORDERED: Sodium Chloride 0.9% 500 ML IVPB SCH (05:15)
[2019-12-30] MEDS: MEROPENEM 1 GM/50 ML 1 GM in Premix Bag 1 BAG IVPB SCH ×3 (06:02→21:00)
[2019-12-30 06:42] LABS: Anion Gap 12 mmol/L (10-20); BUN (Urea Nitrogen) 5 mg/dL (8.9-20.6); Calc. Creatinine Clearance 154 mL/min (70-130); Calcium 7.4 mg/dL (7.8-10.44); Carbon Dioxide 23 mmol/L (22-29); Chloride 106 mmol/L (98-107); Estimated GFR-MDRD Greater than 90; Glucose 90 mg/dL (70-105); Sodium 138 mmol/L (136-145)
[2019-12-30] MEDS: Mometasone/Formoterol 120 PUFF INHALER INH SCH ×2 (07:08→19:10)
[2019-12-30 08:13] LABS: Band 3 % (5-11); Eosinophils 1 % (0-10); Hemoglobin 8.1 g/dL (14.0-18.0); Lymphocytes 73 % (21-51); MDiff Complete? YES; Mean Corpuscular HGB CONC 32.8 g/dL (32.0-36.0); Mean Corpuscular Hemoglobin 26.4 pg (27.0-31.0); Mean Corpuscular Volume 80.5 fL (78.0-98.0); Monocytes 16 % (0-10); Neutrophil 7 % (42-75); Platelet Count 129 thou/uL (130-400); Red Blood Cell (RBC) Count 3.08 mill/uL (4.70-6.10); White Blood Cell (WBC) Count 2.1 thou/uL (4.8-10.8)
[2019-12-30] MEDS: glyBURIDE 2.5 MG TAB PO SCH ×3 (08:21→16:43)
[2019-12-30] MEDS: Nystatin Powder 15 GM BOT TOP SCH ×2 (08:22→21:04)
[2019-12-30] MEDS: Sodium Chloride 0.9% 1,000 ML IV SCH (10:11)
[2019-12-30] MEDS: Micafungin 100 MG in Sodium Chloride 0.9% 100 ML IVPB SCH (11:52)
--- NOTE | 2019-12-30 13:14 | PDOC.MOPN ---
Interval History: still chilling and shaking, he does not feel better yet. his arm hurts and he feels weak - Vital Signs Vital Signs: Vital Signs (12 hours) Temp Pulse Resp BP BP BP Pulse Ox 12/30/19 11:18 98.2 F 99 20 99/62 98 12/30/19 08:00 100 12/30/19 07:44 97.8 F 98 20 93/62 97 12/30/19 05:56 96/55 L 12/30/19 05:39 99.5 F 92 18 89/47 L 93 L 12/30/19 04:48 103 H 89/51 L 12/30/19 04:46 98 12/30/19 04:43 87/50 L 12/30/19 04:39 103 H 94/55 L 12/30/19 04:00 101.5 F H 103 H 20 83/50 L 100 12/30/19 01:56 98.2 F 111/67 Weight Admit Weight 212 lb 4.8 oz Weight 212 lb 4.8 oz - Physical Exam General: Mild distress HEENT: Atraumatic Lungs: Clear to auscultation Cardiovascular: Regular rate, Other (tachy) Abdomen: Normal bowel sounds Extremities: Other (RUE swelling noted, it is inside marked outline, unclear the etiology) Neurological: Other (somewhat sleepy, rigoring) - Labs Result Diagrams: 12/30/19 05:36 12/30/19 05:36 Lab results: Laboratory Results - last 24 hr 12/30/19 11:26: POC Glucose 89 12/30/19 05:36: WBC 2.1 L, RBC 3.08 L, Hgb 8.1 L, Hct 24.8 L, MCV 80.5, MCH 26.4 L, MCHC 32.8, RDW 13.0, Plt Count 129 L, MPV 10.0, Neutrophils % (Manual) 7 L, Band Neuts % (Manual) 3 L, Lymphocytes % (Manual) 73 H, Monocytes % (Manual ) 16 H, Eosinophils % (Manual) 1 12/30/19 05:36: Sodium 138, Potassium 3.0 L, Chloride 106, Carbon Dioxide 23, Anion Gap 12, BUN 5 L, Creatinine 0.80, Estimated GFR (MDRD) Greater than 90, Glucose 90, Calcium 7.4 L 12/30/19 04:34: POC Glucose 109 12/30/19 00:13: POC Glucose 76 12/30/19 00:05: Vancomycin Trough 21.0 12/29/19 19:07: POC Glucose 74 12/29/19 15:49: POC Glucose 132 H 12/29/19 12:05: POC Glucose 135 H A/P - Problem (1) Pancytopenia Current Visit: Yes Code(s): D61.818 - OTHER PANCYTOPENIA Status: Acute (2) Febrile neutropenia Current Visit: Yes Code(s): D70.9 - NEUTROPENIA, UNSPECIFIED; R50.81 - FEVER PRESENTING WITH CONDITIONS CLASSIFIED ELSEWHERE Status: Acute (3) Neutropenic sepsis Current Visit: Yes Code(s): A41.9 - SEPSIS, UNSPECIFIED ORGANISM; D70.9 - NEUTROPENIA, UNSPECIFIED Status: Acute (4) Wound infection Current Visit: No Code(s): T14.8XXA - OTHER INJURY OF UNSPECIFIED BODY REGION , INITIAL ENCOUNTER; L08.9 - LOCAL INFECTION OF THE SKIN AND SUBCUTANEOUS TISSUE , UNSP Status: Chronic - Plan Plan: 1. cont abx and wound care, appreciate ID help 2. increase tylenol for rigors 3. discuss transfer to [facility] 4. if hgb <8 tomorrow i owuld transfuse. he is symptomatic and febrile 5. cont neupogen
[2019-12-30] MEDS ORDERED: Sodium Chloride 0.9% 1,000 ML IV SCH (14:15)
[2019-12-30] MEDS ORDERED: Potassium Chloride 40 MEQ in Sodium Chloride 0.9% 250 ML 250 ML IVPB ONE (14:30)
--- NOTE | 2019-12-30 17:12 | PRG ---
DATE OF SERVICE: 12/30/2019 SUBJECTIVE: Awake and alert. Still appears ill, but no distress. He feels a little better. Had a liquid bowel movement earlier today. No headaches. A little bit of cough. No dyspnea. A little bit of abdominal cramps. Voiding without difficulty. OBJECTIVE: VITAL SIGNS: T-max 101.5 earlier today at 4 in the morning. Now, his temperature has settled down. It appears to be the case. Blood pressure 193/55, pulse 91, respirations 20, O2 saturation 99%. SKIN: The petechial lesions are still there, but no new petechiae just the old ones seem to be disappearing. LUNGS: Symmetric, clear breath sounds. The necrotic purpuric erythematous patches and nodules in the previously described areas seem to have blistering and as are noticed particularly in the arm, right upper extremity. LABORATORY DATA: The white cell count is up to 2.1, hemoglobin 8.1, platelets 129 with about 200 neutrophils altogether. Creatinine 0.8. Respiratory virus PCR panel negative. One set of blood cultures with gram-positive cocci. This was negative for Staph aureus, so could be a contaminant, most likely the contaminant. The elbow cultures showed Staph aureus though. ASSESSMENT AND DISCUSSION: Langerhans cell histiocytosis, on chemotherapy. Agranulocytosis, cuticular lesions, necrotic lesion with erythema in various areas of body skin port. The bacteremia noted could represent contamination of the sample. We will await for the final identification. His neutropenia seems to be improving and we have now at least some neutrophils about 200 per cubic mm of blood. He continues on levofloxacin, micafungin, meropenem. We will discontinue levofloxacin. Continue meropenem, micafungin, and vancomycin. Job ID: [id number]
[2019-12-30] MEDS ORDERED: Dextrose 5% in Water 1,000 ML IV PRN (19:05)
[2019-12-30] MEDS ORDERED: Dextrose 50% Abboject 50 ML SYRINGE SLOW IVP PRN (19:05)
[2019-12-30] MEDS: Dextrose 5 % And 0.9 % NaCl 1,000 ML IV SCH (20:58)
--- NOTE | 2019-12-30 21:08 | PDOC.HOSPP ---
- Subjective Encounter Date: 12/31/19 Encounter Time: 13:00 Subjective: overnight, febrile at 101.5 despite meropenem, levoflox, and vancomycin. This morning, appears drowsy and complains about right elbow pain at site of lesion. Otherwise has no complaints. - Objective Vital Signs & Weight: Vital Signs (12 hours) Temp Pulse Resp BP Pulse Ox 12/30/19 19:32 99.3 F 86 20 115/69 100 12/30/19 19:13 99 12/30/19 19:10 99 12/30/19 16:12 97.9 F 91 20 93/55 L 99 12/30/19 11:18 98.2 F 99 20 99/62 98 Weight Admit Weight 212 lb 4.8 oz Weight 212 lb 4.8 oz I&O: 12/29/19 12/30/19 12/31/19 06:59 06:59 06:59 Intake Total 2203 480 Output Total 1225 Balance 978 480 Result Diagrams: 12/30/19 05:36 12/30/19 05:36 Additional Labs: Accuchecks 12/30/19 12/30/19 12/30/19 19:24 16:22 11:26 POC Glucose 67 L 87 89 12/30/19 12/30/19 04:34 00:13 POC Glucose 109 76 Hospitalist ROS - Review of Systems Constitutional: denies: chills, sweats ENT: denies: ear pain, nose congestion, mouth pain, throat pain Respiratory: denies: cough, dry, shortness of breath, hemoptysis, pleuritic pain , sputum Cardiovascular: denies: chest pain, palpitations, orthopnea, paroxysmal noc. dyspnea Gastrointestinal: denies: nausea, vomiting, abdominal pain, diarrhea Genitourinary: denies: dysuria, frequency, incontinence, hematuria Skin: reports: lesions Neurological: reports: weakness - Medication Medications: Active Medications Generic Name Dose Route Start Last Admin Trade Name Freq PRN Reason Stop Dose Admin Acetaminophen 650 mg 12/28/19 17:03 12/30/19 20:56 Tylenol PO 650 mg Q4H PRN Administration Headache/Fever/Mild Pain (1-3) Acetaminophen/Codeine Phosphate 1 tab 12/28/19 21:45 12/29/19 15:26 Tylenol #3 PO 1 tab Q6H PRN Administration Severe Pain (7-10) Glyburide 1.25 mg 12/29/19 07:30 12/30/19 16:43 Micronase PO Not Given AC SNEHAL Vancomycin HCl 1.5 gm/ Device 300 mls @ 200 mls/hr 12/29/19 01:00 12/30/19 12 :48 IVPB 300 mls 0100,1300 SNEHAL Administration Micafungin Sodium 100 mg/ 100 mls @ 100 mls/hr 12/29/19 12:00 12/30/19 11:52 Sodium Chloride IVPB 100 mls Q24H SNEHAL Administration Meropenem 1 gm/ Device 50 mls @ 200 mls/hr 12/29/19 14:00 12/30/19 21:00 IVPB 50 mls Q8HR SNEHAL Administration Dextrose/Sodium Chloride 1,000 mls @ 100 mls/hr 12/30/19 19:15 12/30/19 20:58 D5 0.9% Ns IV 1,000 mls .Q10H SNEHAL Administration Mometasone Furoate/Formoterol Fumar 2 puff 12/29/19 06:30 12/30/19 19:10 Dulera 200 Mcg/5 Mcg Inhaler INH 2 puff BID-RT SNEHAL Administration Nystatin 0 gm 12/29/19 09:00 12/30/19 21:04 Mycostatin Powder TOP 1 applic BID SNEHAL Administration Sodium Chloride 10 ml 12/29/19 21:00 12/30/19 21:05 Flush - Normal Saline IVF Not Given Q12HR SNEHAL Tbo-Filgrastim 480 mcg 12/30/19 09:00 12/30/19 10:11 Granix SC 480 mcg DAILY SNEHAL Administration - Exam General Appearance: awake alert, ill appearing General - other findings: drowsy Eye: PERRL, anicteric sclera Neck: no JVD Heart: RRR, no murmur, no gallops, normal peripheral pulses Respiratory: CTAB, no wheezes, no rales, no ronchi Gastrointestinal: soft, non-tender, non-distended, normal bowel sounds Extremities: no edema Skin - other findings: petechial lesions with vesicular lesion on right elbow with surrounding joselito Neurological: cranial nerve grossly intact, no focal deficits, no new deficit Musculoskeletal: generalized weakness Psychiatric: normal behavior, A&O x 3 Psychiatric - other findings: drowsy Hosp A/P - Plan * langerhands cell histiocytosis * neutropenic fever * sepsis * qSOFA 12/04 * source unknown at this point * last fever AM 101.5 * BCx single bottle grew +ve cocci, awaiting speciation * elbow lesion fluid culture staph aureus, however, appears to be vesicular lesion that may be due to histiocytosis; epithelial cells present in sample * * continue meropenem and vanc; stop levofloxacin per ID * increased IVF rate * * hypoglycemia * may be due to sepsis * * hypoglycemic protocol * IVF containing dextrose * *
[2019-12-31] MEDS: Vancomycin 1.5 GRAM/300 ML BAG 1.5 GM in Premix Bag 1 BAG IVPB SCH ×2 (00:26→14:14)
--- NOTE | 2019-12-31 01:33 | EKG ---
Test Reason : Blood Pressure : / mmHG Vent. Rate : 125 BPM Atrial Rate : 125 BPM P-R Int : 116 ms QRS Dur : 088 ms QT Int : 430 ms P-R-T Axes : 006 237 042 degrees QTc Int : 620 ms Sinus tachycardia Right superior axis deviation Abnormal ECG Confirmed by MASOUD FRIAS ([id number]), editor at large GEORGETTE WALDRON ([id number]) on 12/31/2019 1:32:43 AM Referred By: Confirmed By:MASOUD Cantu
[2019-12-31] MEDS: MEROPENEM 1 GM/50 ML 1 GM in Premix Bag 1 BAG IVPB SCH ×3 (05:12→21:37)
[2019-12-31 05:52] LABS: Hemoglobin 8.6 g/dL (14.0-18.0); Mean Corpuscular HGB CONC 32.1 g/dL (32.0-36.0); Mean Corpuscular Hemoglobin 25.8 pg (27.0-31.0); Mean Corpuscular Volume 80.4 fL (78.0-98.0); Mean Platelet Volume 10.1 fL (7.4-10.4); Platelet Count 176 thou/uL (130-400); RBC Distribution Width 13.5 % (11.5-14.5); Red Blood Cell (RBC) Count 3.32 mill/uL (4.70-6.10); White Blood Cell (WBC) Count 4.9 thou/uL (4.8-10.8)
[2019-12-31] MEDS: Dextrose 5 % And 0.9 % NaCl 1,000 ML IV SCH ×3 (06:23→13:40)
[2019-12-31 06:26] LABS: Anion Gap 11 mmol/L (10-20); BUN (Urea Nitrogen) 4 mg/dL (8.9-20.6); Calc. Creatinine Clearance 156 mL/min (70-130); Calcium 7.7 mg/dL (7.8-10.44); Carbon Dioxide 21 mmol/L (22-29); Chloride 111 mmol/L (98-107); Estimated GFR-MDRD Greater than 90; Glucose 109 mg/dL (70-105); Magnesium 1.6 mg/dL (1.6-2.6); Sodium 140 mmol/L (136-145)
[2019-12-31 06:57] LABS: Band 32 % (5-11); Lymphocytes 43 % (21-51); MDiff Complete? YES; Metamyelocyte 2 % (0-0); Monocytes 12 % (0-10); Neutrophil 11 % (42-75)
[2019-12-31] MEDS: glyBURIDE 2.5 MG TAB PO SCH ×3 (08:57→18:03)
[2019-12-31] MEDS: Nystatin Powder 15 GM BOT TOP SCH ×2 (09:00→20:24)
[2019-12-31] MEDS: Mometasone/Formoterol 120 PUFF INHALER INH SCH ×2 (10:18→19:16)
[2019-12-31] MEDS ORDERED: Potassium Chloride 40 MEQ in Premix Bag 1 BAG IVPB SCH (11:15)
[2019-12-31] MEDS ORDERED: Magnesium 2 GM/50 ML 2 GM in Premix Bag 1 BAG IVPB SCH (11:15)
[2019-12-31] MEDS: Micafungin 100 MG in Sodium Chloride 0.9% 100 ML IVPB SCH (11:49)
[2019-12-31 12:19] LABS: Vancomycin, Trough 17.5 ug/mL
[2019-12-31] MEDS: Potassium Chloride 20 MEQ in Premix Bag 1 BAG IVPB SCH ×4 (13:57→20:21)
--- NOTE | 2019-12-31 14:36 | PRG ---
DATE OF SERVICE: 12/31/2019 SUBJECTIVE: Feeling better. Eating well without problems. No sore throat. No dyspnea or abdominal pain. He has been afebrile now since the . Other vital signs are normal. Appears in no distress. The bullous disorder secondary to Staphylococcus aureus shows more tense bullae, particularly in the right upper extremity. OBJECTIVE: LUNGS: Clear. HEART: S1 and S2, regular rate. ABDOMEN: Soft. Not distended. Peripheral IV access. LABORATORY DATA: White cell count is up to 4.9 of those we have about 40% neutrophils, so we can discontinue the neutropenic precautions. Chemistry with a creatinine 0.79. Microbiology with micrococcus in the blood cultures is likely a contaminant. ASSESSMENT AND DISCUSSION: Langerhans cell histiocytosis, on chemo. Agranulocytosis, which has improved now. Bullous disorder secondary to Staphylococcus aureus, which is likely cause of fever. Neutropenia has resolved for the most part, and we will discontinue most of the antimicrobials except for meropenem. Should be able to transition to oral antimicrobial soon, probably with a quinolone or cephalosporin. Job ID: [id number]
--- NOTE | 2019-12-31 15:47 | PDOC.HOSPP ---
- Subjective Encounter Date: 12/31/19 Encounter Time: 09:00 Subjective: no overnight events. This morning, appears more alert, feels better overall, complains of improved pain in right elbow. otherwise no complaints. - Objective Vital Signs & Weight: Vital Signs (12 hours) Temp Pulse Resp BP Pulse Ox 12/31/19 08:00 98.5 F 96 18 92/58 L 96 12/31/19 05:00 98.0 F 96 20 105/70 96 Weight Admit Weight 212 lb 4.8 oz Weight 212 lb 4.8 oz I&O: 12/30/19 12/31/19 01/01/20 06:59 06:59 06:59 Intake Total 2203 1580 Output Total 1225 1250 Balance 978 330 Result Diagrams: 12/31/19 05:16 12/31/19 05:16 Additional Labs: Accuchecks 12/31/19 12/31/19 12/30/19 11:46 05:26 19:24 POC Glucose 107 112 H 67 L 12/30/19 16:22 POC Glucose 87 Hospitalist ROS - Review of Systems Constitutional: denies: fever, chills, sweats, weakness, malaise, other Respiratory: denies: cough, dry, shortness of breath, hemoptysis, SOB with excertion, pleuritic pain, sputum, wheezing, other Cardiovascular: denies: chest pain, palpitations, orthopnea, paroxysmal noc. dyspnea, edema, light headedness, other Gastrointestinal: denies: nausea, vomiting, abdominal pain, diarrhea, constipation, melena, hematochezia, other Skin: reports: lesions - Medication Medications: Active Medications Generic Name Dose Route Start Last Admin Trade Name Freq PRN Reason Stop Dose Admin Acetaminophen 650 mg 12/28/19 17:03 12/30/19 20:56 Tylenol PO 650 mg Q4H PRN Administration Headache/Fever/Mild Pain (1-3) Acetaminophen/Codeine Phosphate 1 tab 12/28/19 21:45 12/29/19 15:26 Tylenol #3 PO 1 tab Q6H PRN Administration Severe Pain (7-10) Glyburide 1.25 mg 12/29/19 07:30 12/31/19 11:47 Micronase PO Not Given AC SNEHAL Meropenem 1 gm/ Device 50 mls @ 200 mls/hr 12/29/19 14:00 12/31/19 13:52 IVPB 50 mls Q8HR SNEHAL Administration Dextrose/Sodium Chloride 1,000 mls @ 100 mls/hr 12/30/19 19:15 12/31/19 13:40 D5 0.9% Ns IV Not Given .Q10H SNEHAL Potassium Chloride 20 meq/ 100 mls @ 50 mls/hr 12/31/19 13:00 12/31/19 13:57 Device IVPB 12/31/19 20:59 100 mls Q2H SNEHAL Administration Mometasone Furoate/Formoterol Fumar 2 puff 12/29/19 06:30 12/31/19 10:18 Dulera 200 Mcg/5 Mcg Inhaler INH 2 puff BID-RT SNEHAL Administration Nystatin 0 gm 12/29/19 09:00 12/31/19 09:00 Mycostatin Powder TOP 1 applic BID SNEHAL Administration Sodium Chloride 10 ml 12/29/19 21:00 12/31/19 09:01 Flush - Normal Saline IVF Not Given Q12HR SNEHAL Tbo-Filgrastim 480 mcg 12/30/19 09:00 12/31/19 11:59 Granix SC 480 mcg DAILY SNEAHL Administration - Exam General Appearance: NAD, awake alert Eye: PERRL, anicteric sclera ENT: normocephalic atraumatic Neck: no JVD Heart: RRR, no murmur, no gallops, no rubs, normal peripheral pulses Respiratory: CTAB, no wheezes, no rales, no ronchi, normal chest expansion Gastrointestinal: soft, non-tender, non-distended, normal bowel sounds Gastrointestinal - other findings: colostomy bag in place and functional. soft green stool Skin: no rashes (multiple small ulcer in inguinal and buttcheek folds appear noninfected; buttcheek fold decubitus ulcer stage 2; another vesicular lesion about 5cm in diameter midback appears noninfected) Skin - other findings: worsening right elbow cellulitis, now extending proximally and distally Psychiatric: normal affect, normal behavior, A&O x 3 Hosp A/P - Plan * langerhands cell histiocytosis * staph aureus cellulitis (R elbow, worse) * neutropenic fever * sepsis (resolved) * qSOFA 11/03 * source likely staph aureus skin infection * last fever AM 101.5 * BCx contamination * elbow lesion fluid culture staph aureus, cellulitis worsening (12/30) * WBC 4.9. neutrophil ~ 0.5k; remains severely neutrophilic though improving * * per ID dced meropenem, continuing vanc * nurse was requested to put dressing over vesicular lesions in order to avoid infection * * hypoglycemia * may be due to sepsis * * hypoglycemic protocol * IVF containing dextrose * * stage 2 decubitus ulcer * wound care onboard
[2019-12-31] MEDS: Acetaminophen 325 MG TAB PO PRN (20:20)
[2020-01-01] MEDS: Dextrose 5 % And 0.9 % NaCl 1,000 ML IV SCH ×3 (02:25→20:17)
[2020-01-01] MEDS: Acetaminophen 325 MG TAB PO PRN ×2 (03:18→15:30)
[2020-01-01] MEDS: MEROPENEM 1 GM/50 ML 1 GM in Premix Bag 1 BAG IVPB SCH ×2 (05:10→13:06)
[2020-01-01 06:12] LABS: Anion Gap 10 mmol/L (10-20); BUN (Urea Nitrogen) 7 mg/dL (8.9-20.6); Calc. Creatinine Clearance 143 mL/min (70-130); Calcium 8.3 mg/dL (7.8-10.44); Carbon Dioxide 24 mmol/L (22-29); Chloride 119 mmol/L (98-107); Estimated GFR-MDRD Greater than 90; Glucose 122 mg/dL (70-105); Magnesium 2.3 mg/dL (1.6-2.6); Potassium 3.8 mmol/L (3.5-5.1); Sodium 149 mmol/L (136-145)
[2020-01-01] MEDS: Mometasone/Formoterol 120 PUFF INHALER INH SCH ×2 (07:15→19:06)
[2020-01-01 07:22] LABS: Band 34 % (5-11); Hemoglobin 8.7 g/dL (14.0-18.0); Lymphocytes 25 % (21-51); MDiff Complete? YES; Mean Corpuscular HGB CONC 32.2 g/dL (32.0-36.0); Mean Corpuscular Hemoglobin 25.8 pg (27.0-31.0); Mean Corpuscular Volume 80.1 fL (78.0-98.0); Mean Platelet Volume 9.6 fL (7.4-10.4); Metamyelocyte 3 % (0-0); Monocytes 8 % (0-10); Myelocyte 2 % (0-0); Neutrophil 25 % (42-75); Ovalocytes SLIGHT = 2-5 cells (100X) (0-1/hpf); Platelet Count 169 thou/uL (130-400); Platelet Morphology Comment Appears Adequate; Polychromasia SLIGHT = 2-3 cells (100X) (0-2/hpf); RBC Distribution Width 13.6 % (11.5-14.5); Reactive Lymphocytes 3 % (0-10); Red Blood Cell (RBC) Count 3.37 mill/uL (4.70-6.10); White Blood Cell (WBC) Count 10.5 thou/uL (4.8-10.8)
[2020-01-01] MEDS: glyBURIDE 2.5 MG TAB PO SCH ×3 (07:52→17:29)
[2020-01-01] MEDS: Nystatin Powder 15 GM BOT TOP SCH ×2 (07:52→20:15)
[2020-01-01 08:23] LABS: Sodium 147 mmol/L (136-145)
--- NOTE | 2020-01-01 13:28 | PRG ---
DATE OF SERVICE: 01/01/2020 SUBJECTIVE: Mr. Cowan is having chills during the exam. He denies any headaches. No sore throat, odynophagia, or dysphagia. No vomiting. No shortness of breath or chest pain. No abdominal pain or diarrhea. He is voiding without difficulty. OBJECTIVE: VITAL SIGNS: T-max was 101.5 on the , this is 3 days later and he has been afebrile. BP 96/63. SKIN: The right elbow area appears to have more erythematous changes compared with before. The central bullous lesions are better though. LUNGS: Clear. HEART: S1 and S2, regular rate. ABDOMEN: Soft. Not distended. Colostomy appears okay. No bladder distention. LABORATORY DATA: White cell count is at 10.5, hemoglobin 8.7, and platelets are 169 with 34% bands. ASSESSMENT AND DISCUSSION: He is currently on Merrem. We will go and switch him back to cefepime. Repeat blood cultures. May need imaging study R elbow area ( MRI) Job ID: [id number] [facility]
[2020-01-01] MEDS: Cefepime 1 GM in Sodium Chloride 0.9% 100 ML IVPB SCH ×2 (13:36→21:01)
--- NOTE | 2020-01-01 14:20 | PDOC.MOPN ---
Interval History: feels better but still having chills - Vital Signs Vital Signs: Vital Signs (12 hours) Temp Pulse Resp BP BP Pulse Ox 01/01/20 12:09 98.7 F 94 20 96/63 100 01/01/20 11:30 98.7 F 12 96/63 01/01/20 08:10 97.6 F 85 12 99/65 97 01/01/20 07:52 97 01/01/20 03:32 97.6 F 85 18 96/60 97 Weight Admit Weight 212 lb 4.8 oz Weight 212 lb 4.8 oz - Physical Exam General: Alert, Oriented x3, No acute distress HEENT: Atraumatic, PERRLA, EOMI, Mucous membr. moist/pink Lungs: Clear to auscultation, Normal air movement Cardiovascular: Regular rate, Normal S1, Normal S2, No murmurs, Gallops, Rubs Abdomen: Normal bowel sounds, Soft, No tenderness, No hepatospenomegaly, No masses Extremities: No clubbing, No cyanosis, No edema, Normal pulses, No tenderness/ swelling Neurological: Normal speech - Labs Result Diagrams: 01/01/20 05:28 01/01/20 08:07 Lab results: Laboratory Results - last 24 hr 01/01/20 11:48: POC Glucose 87 01/01/20 08:07: Sodium 147 H 01/01/20 05:28: WBC 10.5, RBC 3.37 L, Hgb 8.7 L, Hct 26.9 L, MCV 80.1, MCH 25.8 L, MCHC 32.2, RDW 13.6, Plt Count 169, MPV 9.6, Neutrophils % (Manual) 25 L, Band Neuts % (Manual) 34 H, Lymphocytes % (Manual) 25, Reactive Lymphs % 3, Monocytes % (Manual) 8, Metamyelocytes % (Man) 3 H, Myelocytes % 2 H, Plt Morphology Comment Appears Adequate, Polychromasia SLIGHT = 2-3 cells, Ovalocytes SLIGHT = 2-5 cells 01/01/20 05:28: Sodium 149 H, Potassium 3.8, Chloride 119 H, Carbon Dioxide 24, Anion Gap 10, BUN 7 L, Creatinine 0.86, Estimated GFR (MDRD) Greater than 90, Glucose 122 H, Calcium 8.3, Magnesium 2.3 01/01/20 04:20: POC Glucose 121 H 12/31/19 19:33: POC Glucose 109 12/31/19 16:46: POC Glucose 111 H Status: lab reviewed by me A/P - Problem (1) Febrile neutropenia Current Visit: Yes Code(s): D70.9 - NEUTROPENIA, UNSPECIFIED; R50.81 - FEVER PRESENTING WITH CONDITIONS CLASSIFIED ELSEWHERE Status: Acute (2) Langerhans cell histiocytoses Current Visit: No Code(s): C96.6 - UNIFOCAL LANGERHANS-CELL HISTIOCYTOSIS Status: Chronic - Plan Plan: Febrile neutropenia resolved Further ABX per ID Postpone treatment until next week Will see Dr. Smith prior to next cycle
--- NOTE | 2020-01-01 22:46 | PDOC.HOSPP ---
- Subjective Encounter Date: 01/01/20 Encounter Time: 08:30 Subjective: no overnight events. Overall, continues to improve and this morning, endorses feeling the best since admission. complains of right elbow tenderness - Objective Vital Signs & Weight: Vital Signs (12 hours) Temp Pulse Resp BP BP Pulse Ox 01/01/20 20:00 95 01/01/20 19:27 98.1 F 89 20 97/67 95 01/01/20 15:30 100.3 F H 111 H 16 120/74 97 01/01/20 15:10 103 F H 114 H 20 113/69 94 L 01/01/20 12:09 98.7 F 94 20 96/63 100 01/01/20 11:30 98.7 F 12 96/63 Weight Admit Weight 212 lb 4.8 oz Weight 212 lb 4.8 oz I&O: 12/31/19 01/01/20 01/02/20 06:59 06:59 06:59 Intake Total 1580 2100 Output Total 1250 750 Balance 330 1350 Result Diagrams: 01/01/20 05:28 01/01/20 08:07 Additional Labs: Accuchecks 01/01/20 01/01/20 01/01/20 19:37 16:53 11:48 POC Glucose 137 H 115 H 87 01/01/20 04:20 POC Glucose 121 H Hospitalist ROS - Review of Systems Constitutional: denies: fever, chills, sweats, weakness, malaise, other Respiratory: denies: cough, dry, shortness of breath, hemoptysis, SOB with excertion, pleuritic pain, sputum, wheezing, other Cardiovascular: denies: chest pain, palpitations, orthopnea, paroxysmal noc. dyspnea, edema, light headedness, other Gastrointestinal: denies: nausea, vomiting, abdominal pain, diarrhea, constipation, melena, hematochezia, other Genitourinary: denies: dysuria, frequency, incontinence, hematuria, retention, other Skin: reports: lesions - Medication Medications: Active Medications Generic Name Dose Route Start Last Admin Trade Name Freq PRN Reason Stop Dose Admin Acetaminophen 650 mg 12/28/19 17:03 01/01/20 15:30 Tylenol PO 650 mg Q4H PRN Administration Headache/Fever/Mild Pain (1-3) Acetaminophen/Codeine Phosphate 1 tab 12/28/19 21:45 12/29/19 15:26 Tylenol #3 PO 1 tab Q6H PRN Administration Severe Pain (7-10) Glyburide 1.25 mg 12/29/19 07:30 01/01/20 17:29 Micronase PO Not Given AC SNEHAL Dextrose/Sodium Chloride 1,000 mls @ 100 mls/hr 12/30/19 19:15 01/01/20 20:17 D5 0.9% Ns IV 1,000 mls .Q10H SNEHAL Administration Cefepime HCl 1 gm/ Sodium 100 mls @ 200 mls/hr 01/01/20 14:00 01/01/20 21:01 Chloride IVPB 100 mls Q8HR SNEHAL Administration Mometasone Furoate/Formoterol Fumar 2 puff 12/29/19 06:30 01/01/20 19:06 Dulera 200 Mcg/5 Mcg Inhaler INH 2 puff BID-RT SNEHAL Administration Nystatin 0 gm 12/29/19 09:00 01/01/20 20:15 Mycostatin Powder TOP 1 applic BID SNEHAL Administration Sodium Chloride 10 ml 12/29/19 21:00 01/01/20 20:14 Flush - Normal Saline IVF 10 ml Q12HR SNEHAL Administration - Exam General Appearance: NAD, awake alert Neck: no JVD Heart: RRR, no murmur, no gallops, no rubs, normal peripheral pulses Respiratory: CTAB, no wheezes, no rales, no ronchi, normal chest expansion Gastrointestinal: soft, non-tender, non-distended, normal bowel sounds Extremities: no edema Skin - other findings: elbow cellulits mildly improved; otherwise unchanged skin lesions Psychiatric: normal affect, normal behavior, A&O x 3 Hosp A/P - Plan * langerhands cell histiocytosis * staph aureus cellulitis (R elbow, worse) * neutropenic fever * sepsis (resolved) * no longer neutropenic * worsening cellulitis may be due to increased inflammatory response mediated by increased neutrophil activity * wound care reconsulted to provide wound care and prevent reinfection of repeatedly rupturing vesicles * * hypoglycemia (resolved) * may be due to sepsis * * hypoglycemic protocol * IVF containing dextrose * * stage 2 decubitus ulcer * wound care onboard
[2020-01-01] MEDS ORDERED: Dextrose 5 %-0.45 % NaCl 1,000 ML IV SCH (23:00)
[2020-01-02] MEDS: Cefepime 1 GM in Sodium Chloride 0.9% 100 ML IVPB SCH ×3 (05:34→21:02)
[2020-01-02 05:55] LABS: Hemoglobin 10.2 g/dL (14.0-18.0); Mean Corpuscular Hemoglobin 25.7 pg (27.0-31.0); Mean Corpuscular Volume 80.2 fL (78.0-98.0); Mean Platelet Volume 9.9 fL (7.4-10.4); Platelet Count 211 thou/uL (130-400); RBC Distribution Width 14.3 % (11.5-14.5); Red Blood Cell (RBC) Count 3.97 mill/uL (4.70-6.10); White Blood Cell (WBC) Count 13.3 thou/uL (4.8-10.8)
[2020-01-02 06:04] LABS: Anion Gap 13 mmol/L (10-20); BUN (Urea Nitrogen) 7 mg/dL (8.9-20.6); Calc. Creatinine Clearance 122 mL/min (70-130); Calcium 8.6 mg/dL (7.8-10.44); Carbon Dioxide 22 mmol/L (22-29); Chloride 121 mmol/L (98-107); Estimated GFR-MDRD 79; Glucose 138 mg/dL (70-105); Magnesium 2.2 mg/dL (1.6-2.6); Potassium 3.1 mmol/L (3.5-5.1); Sodium 153 mmol/L (136-145)
[2020-01-02 06:13] LABS: Band 17 % (5-11); Lymphocytes 40 % (21-51); MDiff Complete? YES; Monocytes 9 % (0-10); Myelocyte 3 % (0-0); Neutrophil 31 % (42-75); Nucleated RBC 1 % (0)
[2020-01-02] MEDS: Mometasone/Formoterol 120 PUFF INHALER INH SCH ×2 (06:42→18:51)
[2020-01-02] MEDS: glyBURIDE 2.5 MG TAB PO SCH ×3 (07:52→17:00)
[2020-01-02] MEDS: Nystatin Powder 15 GM BOT TOP SCH ×2 (07:53→19:48)
[2020-01-02] MEDS ORDERED: Dextrose 5% in Water 500 ML IV SCH (10:15)
[2020-01-02] MEDS: Dextrose 5% in Water 1,000 ML IV SCH ×2 (10:45→17:56)
[2020-01-02] MEDS: Potassium Chloride 20 MEQ TAB PO SCH ×2 (10:45→14:24)
--- NOTE | 2020-01-02 13:21 | PRG ---
DATE OF SERVICE: 01/02/2020 SUBJECTIVE: Feeling better today, had a temperature elevation yesterday but not since. Coughing a little bit. No sputum production. No abdominal pain. Right upper extremity is improving. Voiding without difficulty. OBJECTIVE: VITAL SIGNS: T-max was 103 yesterday at around 3 p.m., he has been afebrile since. BP 108/65, pulse 94, respirations 16 to 22, O2 saturation 99. GENERAL: Appears chronically ill, but in no acute distress. O2 per nasal cannula. LUNGS: Clear. EXTREMITIES: The right upper extremity inflammatory process is improving. Moves all extremities equally. ABDOMEN: Soft, not distended. Colostomy in place. Perineal wounds are the same with fresh clean base. LABORATORY DATA: White cell count 13.3, hemoglobin 10.2, platelets 211, 17% bands, 31% neutrophils. Two sets of blood cultures, no growth to date. 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 Could consider discharge planning with oral Keflex for another 10 days or so approximately. Follow up in the outpatient setting. Job ID: [id number]
--- NOTE | 2020-01-02 21:26 | PDOC.HOSPP ---
- Subjective Encounter Date: 01/02/20 Encounter Time: 11:00 Subjective: no overnight events. This morning, feels well and has no complaints. Pending transition to oral antibiotics per ID - Objective Vital Signs & Weight: Vital Signs (12 hours) Temp Pulse Resp BP Pulse Ox 01/02/20 19:08 98.4 F 92 20 109/68 98 01/02/20 18:51 92 12 98 01/02/20 16:24 98.3 F 92 18 108/66 98 01/02/20 11:17 98.0 F 94 22 H 108/65 99 Weight Admit Weight 212 lb 4.8 oz Weight 212 lb 4.8 oz I&O: 01/01/20 01/02/20 01/03/20 06:59 06:59 06:59 Intake Total 2100 1480 840 Output Total 750 Balance 1350 1480 840 Result Diagrams: 01/02/20 05:16 01/02/20 05:16 Additional Labs: Accuchecks 01/02/20 01/02/20 01/02/20 19:12 16:31 11:23 POC Glucose 104 94 86 01/02/20 01/01/20 05:16 19:37 POC Glucose 119 H 137 H Hospitalist ROS - Review of Systems Constitutional: denies: fever, chills, sweats, weakness, malaise, other Respiratory: denies: cough, dry, shortness of breath, hemoptysis, SOB with excertion, pleuritic pain, sputum, wheezing, other Cardiovascular: denies: chest pain, palpitations, orthopnea, paroxysmal noc. dyspnea, edema, light headedness, other Gastrointestinal: denies: nausea, vomiting, abdominal pain, diarrhea, constipation, melena, hematochezia, other Genitourinary: denies: dysuria, frequency, incontinence, hematuria, retention, other Skin: reports: lesions - Medication Medications: Active Medications Generic Name Dose Route Start Last Admin Trade Name Freq PRN Reason Stop Dose Admin Acetaminophen 650 mg 12/28/19 17:03 01/01/20 15:30 Tylenol PO 650 mg Q4H PRN Administration Headache/Fever/Mild Pain (1-3) Acetaminophen/Codeine Phosphate 1 tab 12/28/19 21:45 12/29/19 15:26 Tylenol #3 PO 1 tab Q6H PRN Administration Severe Pain (7-10) Glyburide 1.25 mg 12/29/19 07:30 01/02/20 17:00 Micronase PO Not Given AC SNEHAL Dextrose/Water 1,000 mls @ 125 mls/hr 01/02/20 10:15 01/02/20 17:56 D5w IV 1,000 mls .Q8H SNEHAL Administration Mometasone Furoate/Formoterol Fumar 2 puff 12/29/19 06:30 01/02/20 18:51 Dulera 200 Mcg/5 Mcg Inhaler INH 2 puff BID-RT SNEHAL Administration Nystatin 0 gm 12/29/19 09:00 01/02/20 19:48 Mycostatin Powder TOP 1 applic BID SNEHAL Administration Sodium Chloride 10 ml 12/29/19 21:00 01/02/20 19:47 Flush - Normal Saline IVF Not Given Q12HR SNEHAL - Exam General Appearance: NAD, awake alert Neck: no JVD Heart: RRR, no murmur, no gallops, no rubs, normal peripheral pulses Respiratory: CTAB, no wheezes, no rales, no ronchi, normal chest expansion Gastrointestinal: soft, non-tender, non-distended, normal bowel sounds Extremities: no edema Skin - other findings: right elbow cellulitis continues to improve as are other lesions Psychiatric: normal affect, normal behavior, A&O x 3 Hosp A/P - Plan * langerhands cell histiocytosis * staph aureus cellulitis (R elbow, worse) * neutropenic fever * sepsis (resolved) * transition to keflex per ID * * acute hypernatremia\ * likely due to external fluid losses due to multiple lesions. Possible diabetes insipidus due to persistent hypokalemia * bolus d5, then maintenance D5 * repeat Na AM * change diet to low sodium * hypoglycemia (resolved) * may be due to sepsis * * hypoglycemic protocol * IVF containing dextrose * * stage 2 decubitus ulcer * wound care onboard * likely DC 3/4
[2020-01-02] MEDS: Cephalexin 250 MG CAP PO SCH (23:38)
[2020-01-03] MEDS: Dextrose 5% in Water 1,000 ML IV SCH (04:42)
[2020-01-03] MEDS: Cephalexin 250 MG CAP PO SCH ×3 (05:11→17:13)
[2020-01-03 06:33] LABS: Hemoglobin 9.7 g/dL (14.0-18.0); Mean Corpuscular HGB CONC 31.9 g/dL (32.0-36.0); Mean Corpuscular Hemoglobin 25.7 pg (27.0-31.0); Mean Corpuscular Volume 80.5 fL (78.0-98.0); Mean Platelet Volume 9.2 fL (7.4-10.4); Platelet Count 194 thou/uL (130-400); RBC Distribution Width 14.6 % (11.5-14.5); Red Blood Cell (RBC) Count 3.77 mill/uL (4.70-6.10); White Blood Cell (WBC) Count 9.9 thou/uL (4.8-10.8)
[2020-01-03 06:41] LABS: Anion Gap 14 mmol/L (10-20); BUN (Urea Nitrogen) 8 mg/dL (8.9-20.6); Calc. Creatinine Clearance 113 mL/min (70-130); Calcium 8.5 mg/dL (7.8-10.44); Carbon Dioxide 25 mmol/L (22-29); Chloride 119 mmol/L (98-107); Estimated GFR-MDRD 72; Glucose 122 mg/dL (70-105); Magnesium 2.2 mg/dL (1.6-2.6); Potassium 3.4 mmol/L (3.5-5.1); Sodium 155 mmol/L (136-145)
[2020-01-03] MEDS: Mometasone/Formoterol 120 PUFF INHALER INH SCH ×2 (06:45→18:34)
[2020-01-03] MEDS: Potassium Chloride 20 MEQ TAB PO SCH ×2 (07:41→12:23)
[2020-01-03] MEDS: glyBURIDE 2.5 MG TAB PO SCH ×3 (07:42→17:13)
[2020-01-03] MEDS: Nystatin Powder 15 GM BOT TOP SCH ×2 (07:43→20:59)
[2020-01-03 08:29] LABS: Band 12 % (5-11); Hypochromia SLIGHT = 6-15 cells (100X) (0-5/hpf); Lymphocytes 48 % (21-51); MDiff Complete? YES; Metamyelocyte 6 % (0-0); Monocytes 8 % (0-10); Myelocyte 1 % (0-0); Neutrophil 25 % (42-75); Nucleated RBC 1 % (0); Platelet Morphology Comment Appears Adequate; Polychromasia SLIGHT = 2-3 cells (100X) (0-2/hpf)
[2020-01-03 16:11] LABS: Sodium 156 mmol/L (136-145)
--- NOTE | 2020-01-03 19:15 | PDOC.HOSPP ---
- Subjective Encounter Date: 01/03/20 Encounter Time: 10:00 Subjective: no overnight events. Lesions continue to improve. Hypernatremia persists despite free water supplementation. Endorses increased urination frequency. Has no other complaints. - Objective Vital Signs & Weight: Vital Signs (12 hours) Temp Pulse Resp BP Pulse Ox 01/03/20 16:54 83 20 103/53 L 01/03/20 16:00 97.4 F L 75 18 132/54 L 96 01/03/20 11:22 98.6 F 89 20 101/68 96 01/03/20 08:00 100 01/03/20 07:50 98.7 F 91 22 H 100/65 100 Weight Admit Weight 212 lb 4.8 oz Weight 212 lb 4.8 oz I&O: 01/02/20 01/03/20 01/04/20 06:59 06:59 06:59 Intake Total 1480 2340 960 Output Total 840 Balance 1480 1500 960 Result Diagrams: 01/03/20 05:57 01/03/20 15:49 Additional Labs: Accuchecks 01/03/20 01/03/20 01/03/20 17:01 11:30 03:52 POC Glucose 94 120 H 87 01/02/20 19:12 POC Glucose 104 Hospitalist ROS - Review of Systems Constitutional: denies: fever, chills, sweats, weakness, malaise, other Respiratory: denies: cough, dry, shortness of breath, hemoptysis, SOB with excertion, pleuritic pain, sputum, wheezing, other Cardiovascular: denies: chest pain, palpitations, orthopnea, paroxysmal noc. dyspnea, edema, light headedness, other Gastrointestinal: denies: nausea, vomiting, abdominal pain, diarrhea, constipation, melena, hematochezia, other Genitourinary: reports: frequency. denies: dysuria, incontinence, hematuria, retention, other Skin: reports: lesions. denies: rash Neurological: denies: weakness, numbness, change in speech, confusion, seizures - Medication Medications: Active Medications Generic Name Dose Route Start Last Admin Trade Name Freq PRN Reason Stop Dose Admin Acetaminophen 650 mg 12/28/19 17:03 01/01/20 15:30 Tylenol PO 650 mg Q4H PRN Administration Headache/Fever/Mild Pain (1-3) Acetaminophen/Codeine Phosphate 1 tab 12/28/19 21:45 12/29/19 15:26 Tylenol #3 PO 1 tab Q6H PRN Administration Severe Pain (7-10) Cephalexin 500 mg 01/02/20 23:59 01/03/20 17:13 Keflex PO 500 mg Q6HR SNEHLA Administration Glyburide 1.25 mg 12/29/19 07:30 01/03/20 17:13 Micronase PO 1.25 mg AC SNEHAL Administration Mometasone Furoate/Formoterol Fumar 2 puff 12/29/19 06:30 01/03/20 18:34 Dulera 200 Mcg/5 Mcg Inhaler INH 2 puff BID-RT SNEHAL Administration Nystatin 0 gm 12/29/19 09:00 01/03/20 07:43 Mycostatin Powder TOP 1 applic BID SNEHAL Administration Sodium Chloride 10 ml 12/29/19 21:00 01/03/20 07:44 Flush - Normal Saline IVF 10 ml Q12HR SNEHAL Administration - Exam General Appearance: NAD, awake alert ENT: normocephalic atraumatic, no oropharyngeal lesions Neck: no JVD Heart: RRR, no murmur, no gallops, no rubs Respiratory: CTAB, no wheezes, no rales, no ronchi Gastrointestinal: soft, non-tender, non-distended, normal bowel sounds Extremities: no edema Skin - other findings: celllulitis continues to improve as do other lesions Neurological: cranial nerve grossly intact, no focal deficits. negative: facial droop, hemiplegia, speech deficit, vision deficit Musculoskeletal: normal tone, normal strength Psychiatric: normal affect, normal behavior, A&O x 3 Hosp A/P - Plan * langerhans cell histiocytosis * staph aureus cellulitis (R elbow, worse) * neutropenic fever * sepsis (resolved) * continue keflex per ID * * chronic hypernatremia * started 12/30 * supplemented D5W yet worsened * urine osmolality low * may be due to diabetes insipidus * * nephrology consulted * * hypoglycemia (resolved) * may be due to sepsis * * hypoglycemic protocol * IVF containing dextrose * * stage 2 decubitus ulcer * wound care onboard * * DC pending resolution of hypernatremia
[2020-01-03 20:04] LABS: Sodium 155 mmol/L (136-145)
[2020-01-03] MEDS: Acetaminophen/Codeine 30-300mg Tablet PO PRN (21:00)
[2020-01-04] MEDS: Cephalexin 250 MG CAP PO SCH ×5 (00:03→23:38)
[2020-01-04] MEDS: Mometasone/Formoterol 120 PUFF INHALER INH SCH ×2 (06:29→19:49)
[2020-01-04 06:30] LABS: Anion Gap 11 mmol/L (10-20); BUN (Urea Nitrogen) 10 mg/dL (8.9-20.6); Calc. Creatinine Clearance 119 mL/min (70-130); Calcium 7.5 mg/dL (7.8-10.44); Carbon Dioxide 29 mmol/L (22-29); Chloride 113 mmol/L (98-107); Estimated GFR-MDRD 77; Glucose 102 mg/dL (70-105); Magnesium 2.1 mg/dL (1.6-2.6); Potassium 3.5 mmol/L (3.5-5.1); Sodium 149 mmol/L (136-145)
[2020-01-04] MEDS: glyBURIDE 2.5 MG TAB PO SCH ×3 (08:01→17:46)
[2020-01-04] MEDS: Potassium Chloride 20 MEQ TAB PO SCH (08:03)
[2020-01-04] MEDS: Nystatin Powder 15 GM BOT TOP SCH ×2 (08:03→21:07)
[2020-01-04 08:10] LABS: Hemoglobin 8.7 g/dL (14.0-18.0); Mean Corpuscular Hemoglobin 25.9 pg (27.0-31.0); Mean Platelet Volume 10.2 fL (7.4-10.4); Platelet Count 129 thou/uL (130-400); RBC Distribution Width 14.6 % (11.5-14.5); Red Blood Cell (RBC) Count 3.34 mill/uL (4.70-6.10); White Blood Cell (WBC) Count 5.7 thou/uL (4.8-10.8)
[2020-01-04 08:11] LABS: Band 9 % (5-11); Hypochromia SLIGHT = 6-15 cells (100X) (0-5/hpf); Lymphocytes 55 % (21-51); MDiff Complete? YES; Metamyelocyte 3 % (0-0); Monocytes 4 % (0-10); Neutrophil 29 % (42-75); Ovalocytes SLIGHT = 2-5 cells (100X) (0-1/hpf); Platelet Morphology Comment Appears Decreased; Polychromasia SLIGHT = 2-3 cells (100X) (0-2/hpf)
[2020-01-04] MEDS ORDERED: Potassium Chloride 20 MEQ TAB PO SCH (10:51)
[2020-01-04] MEDS ORDERED: Desmopressin Acetate 0.01% Nasal Solution NASAL SCH (17:30)
--- NOTE | 2020-01-04 21:43 | PDOC.HOSPP ---
- Subjective Encounter Date: 01/04/20 Encounter Time: 10:00 Subjective: no overnight events. This morning, has no complaints and continues to feel well. pending neprholgoy evaluation for hypernatremia - Objective Vital Signs & Weight: Vital Signs (12 hours) Temp Pulse Resp BP BP Pulse Ox 01/04/20 19:21 98.2 F 89 20 105/65 95 01/04/20 18:29 99.0 F 93 18 84/54 L 96 01/04/20 12:00 97.5 F L 61 16 101/61 97 Weight Admit Weight 212 lb 4.8 oz Weight 212 lb 4.8 oz I&O: 01/03/20 01/04/20 01/05/20 06:59 06:59 06:59 Intake Total 2340 1710 840 Output Total 840 500 Balance 1500 1210 840 Result Diagrams: 01/04/20 05:24 01/04/20 05:24 Additional Labs: Accuchecks 01/04/20 01/04/20 01/04/20 19:23 16:41 11:30 POC Glucose 89 81 91 01/04/20 01/04/20 01/03/20 05:02 04:21 19:24 POC Glucose 94 62 L 87 Hospitalist ROS - Review of Systems Constitutional: denies: fever, chills, sweats, weakness, malaise, other Respiratory: denies: cough, dry, shortness of breath, hemoptysis, SOB with excertion, pleuritic pain, sputum, wheezing, other Cardiovascular: denies: chest pain, palpitations, orthopnea, paroxysmal noc. dyspnea, edema, light headedness, other Gastrointestinal: denies: nausea, vomiting, abdominal pain, diarrhea, constipation, melena, hematochezia, other Genitourinary: denies: dysuria, frequency, incontinence, hematuria, retention, other - Medication Medications: Active Medications Generic Name Dose Route Start Last Admin Trade Name Freq PRN Reason Stop Dose Admin Acetaminophen 650 mg 12/28/19 17:03 01/01/20 15:30 Tylenol PO 650 mg Q4H PRN Administration Headache/Fever/Mild Pain (1-3) Acetaminophen/Codeine Phosphate 1 tab 12/28/19 21:45 01/03/20 21:00 Tylenol #3 PO 1 tab Q6H PRN Administration Severe Pain (7-10) Cephalexin 500 mg 01/02/20 23:59 01/04/20 17:48 Keflex PO 500 mg Q6HR SNEHAL Administration Glyburide 1.25 mg 12/29/19 07:30 01/04/20 17:46 Micronase PO Not Given AC SNEHAL Mometasone Furoate/Formoterol Fumar 2 puff 12/29/19 06:30 01/04/20 19:49 Dulera 200 Mcg/5 Mcg Inhaler INH 2 puff BID-RT SNEHAL Administration Nystatin 0 gm 12/29/19 09:00 01/04/20 21:07 Mycostatin Powder TOP 1 applic BID SNEHAL Administration Potassium Chloride 40 meq 01/04/20 09:00 01/04/20 08:03 K-Dur PO 40 meq DAILY SNEHAL Administration Sodium Chloride 10 ml 12/29/19 21:00 01/04/20 21:08 Flush - Normal Saline IVF 10 ml Q12HR SNEHAL Administration - Exam General Appearance: NAD, awake alert ENT: normocephalic atraumatic, moist mucosa Neck: no JVD Heart: RRR, no murmur, no gallops, no rubs, normal peripheral pulses Respiratory: CTAB, no wheezes, no rales, no ronchi, normal chest expansion Gastrointestinal: soft, non-tender, non-distended, normal bowel sounds Extremities: no edema Skin - other findings: cellulitis continues to improve Psychiatric: normal affect, normal behavior, A&O x 3 Hosp A/P - Plan * langerhans cell histiocytosis * staph aureus cellulitis (R elbow, worse) * neutropenic fever * sepsis (resolved) * continue keflex per ID * * chronic hypernatremia * started 12/30 * supplemented D5W yet worsened * urine osmolality low * though has been eating high-sodium content foods that family brought, shouldn 't develop hypernatremia. likely due to diabetes insipidus * * nephrology consulted * changed to low sodium diet * * hypoglycemia (resolved) * may be due to sepsis * * hypoglycemic protocol * IVF containing dextrose * * stage 2 decubitus ulcer * wound care onboard * * DC pending resolution of hypernatremia
--- NOTE | 2020-01-04 23:48 | CON ---
DATE OF CONSULTATION: 01/04/2020 CONSULTING PHYSICIAN: Dr. Holliday. REASON FOR CONSULTATION: Hypernatremia. REASON FOR ADMISSION: Fever. HISTORY OF PRESENT ILLNESS: This is a 49-year-old male with history of Langerhans cell histiocytosis on chemotherapy, diverting colostomy, diabetes, and asthma, came to the hospital with fever and skin lesions and was found to have hypernatremia , and Nephrology was consulted. The patient's family and the patient reports that he drinks lot of fluids and he makes lot of urine also. His urine osmolality was 154. No fever or chills. No chest pain or palpitation reported to me. PAST MEDICAL HISTORY: Positive for back to Langerhans cell histiocytosis, diabetes, asthma. PAST SURGICAL HISTORY: Right foot surgery, appendectomy, diverting colostomy. HOME MEDICATIONS: Tylenol, glyburide, nystatin, ibuprofen, Symbicort, albuterol. ALLERGIES: NONE. SOCIAL HISTORY: No smoking, alcohol, or drugs. FAMILY HISTORY: No history of kidney disease. REVIEW OF SYSTEMS: CONSTITUTIONAL: Negative for weight loss or gain, ability to conduct usual activities. SKIN: Negative for rash, itching. EYES: Negative for double vision, pain. ENT/MOUTH: Negative for nose bleeding, neck stiffness, pain, tenderness. CARDIOVASCULAR: Negative for palpitations, dyspnea on exertion, orthopnea. RESPIRATORY: Negative for shortness of breath, wheezing, cough, hemoptysis, fever or night sweats. GASTROINTESTINAL: Negative for poor appetite, abdominal pain, heartburn, nausea , vomiting, constipation, or diarrhea. GENITOURINARY: Negative for urgency, frequency, dysuria, nocturia. MUSCULOSKELETAL: Negative for pain, swelling. NEUROLOGIC/PSYCHIATRIC: Negative for anxiety, depression. ALLERGY/IMMUNOLOGIC: Negative for skin rash, bleeding tendency. PHYSICAL EXAMINATION: GENERAL: This is a well-built male, in no apparent distress. VITAL SIGNS: Temperature 99.2, pulse 80, respiratory rate 18 HEENT: Atraumatic, normocephalic. Oral mucosa is moist. NECK: Supple. CV: S1 and S2 heard. Regular rate and rhythm. RESPIRATORY: Clear. GASTROINTESTINAL: Abdomen is soft. MUSCULOSKELETAL: 1+ edema. DERMATOLOGIC: No skin rash. NEUROLOGIC: Alert and awake. PSYCHIATRIC: Mood and affect normal. LABORATORY DATA: Hemoglobin is 8.7, potassium 3.5. Sodium was 155, down to 149. Creatinine is 1.03. ASSESSMENT AND PLAN: 1. Hypernatremia with urine osmolality less than 300. Suggest diabetes insipidus. Plan is to give the desmopressin and repeat urine osmolality. If does not respond, need to consider nephrogenic DI . Recommend Endocrinology followup if central DI. 2. Edema, controlled. 3. Hypertension. 4. Hypokalemia, replace. 5. Chronic kidney disease stage 3. 6. History of diabetes mellitus. 7. We will monitor response to the desmopressin. Job ID: [id number] [facility]
[2020-01-05] MEDS: Cephalexin 250 MG CAP PO SCH ×4 (05:44→22:51)
[2020-01-05 06:08] LABS: Anion Gap 11 mmol/L (10-20); BUN (Urea Nitrogen) 12 mg/dL (8.9-20.6); Calc. Creatinine Clearance 119 mL/min (70-130); Calcium 7.7 mg/dL (7.8-10.44); Carbon Dioxide 25 mmol/L (22-29); Chloride 108 mmol/L (98-107); Estimated GFR-MDRD 77; Glucose 82 mg/dL (70-105); Potassium 3.8 mmol/L (3.5-5.1); Sodium 140 mmol/L (136-145)
[2020-01-05] MEDS: Mometasone/Formoterol 120 PUFF INHALER INH SCH ×2 (08:10→19:57)
[2020-01-05] MEDS: glyBURIDE 2.5 MG TAB PO SCH ×4 (08:45→17:53)
[2020-01-05] MEDS: Nystatin Powder 15 GM BOT TOP SCH ×2 (08:46→22:50)
[2020-01-05] MEDS: Potassium Chloride 20 MEQ TAB PO SCH (08:47)
[2020-01-05] MEDS: Desmopressin Acetate 0.01% Nasal Solution NASAL SCH (08:47)
[2020-01-05 16:09] LABS: Sodium 140 mmol/L (136-145)
--- NOTE | 2020-01-05 17:10 | PDOC.HOSPP ---
- Subjective Encounter Date: 01/05/20 Encounter Time: 09:00 Subjective: no overnight events. This morning, has no complaints and feels well. responded to desmopressin treatment and sodium has been stable - Objective Vital Signs & Weight: Vital Signs (12 hours) Temp Pulse Resp BP Pulse Ox 01/05/20 11:36 98.9 F 86 22 H 91/61 94 L 01/05/20 08:30 95 01/05/20 07:39 99.0 F 85 18 95/61 95 Weight Admit Weight 212 lb 4.8 oz Weight 212 lb 4.8 oz I&O: 01/04/20 01/05/20 01/06/20 06:59 06:59 06:59 Intake Total 1710 840 Output Total 500 Balance 1210 840 Result Diagrams: 01/04/20 05:24 01/05/20 15:25 Additional Labs: Accuchecks 01/05/20 01/05/20 01/05/20 16:31 11:26 04:16 POC Glucose 94 85 92 01/04/20 19:23 POC Glucose 89 Hospitalist ROS - Review of Systems Constitutional: denies: fever, chills, sweats, weakness, malaise, other Respiratory: denies: cough, dry, shortness of breath, hemoptysis, SOB with excertion, pleuritic pain, sputum, wheezing, other Cardiovascular: denies: chest pain, palpitations, orthopnea, paroxysmal noc. dyspnea, edema, light headedness, other Gastrointestinal: denies: nausea, vomiting, abdominal pain, diarrhea, constipation, melena, hematochezia, other Genitourinary: denies: dysuria, frequency, incontinence, hematuria, retention, other - Medication Medications: Active Medications Generic Name Dose Route Start Last Admin Trade Name Freq PRN Reason Stop Dose Admin Acetaminophen 650 mg 12/28/19 17:03 01/01/20 15:30 Tylenol PO 650 mg Q4H PRN Administration Headache/Fever/Mild Pain (1-3) Acetaminophen/Codeine Phosphate 1 tab 12/28/19 21:45 01/03/20 21:00 Tylenol #3 PO 1 tab Q6H PRN Administration Severe Pain (7-10) Cephalexin 500 mg 01/02/20 23:59 01/05/20 11:47 Keflex PO 500 mg Q6HR SNEHAL Administration Desmopressin Acetate 0.1 ml 01/05/20 09:00 01/05/20 08:47 Ddavp Nasal 0.01% Nasal Solution NASAL 0.1 ml DAILY SNEHAL Administration Glyburide 1.25 mg 12/29/19 07:30 01/05/20 11:54 Micronase PO Not Given AC SNEHAL Mometasone Furoate/Formoterol Fumar 2 puff 12/29/19 06:30 01/05/20 08:10 Dulera 200 Mcg/5 Mcg Inhaler INH 2 puff BID-RT SNEHAL Administration Nystatin 0 gm 12/29/19 09:00 01/05/20 08:46 Mycostatin Powder TOP 1 applic BID SNEHAL Administration Potassium Chloride 40 meq 01/04/20 09:00 01/05/20 08:47 K-Dur PO 40 meq DAILY SNEHAL Administration Sodium Chloride 10 ml 12/29/19 21:00 01/05/20 08:48 Flush - Normal Saline IVF 10 ml Q12HR SNEHAL Administration - Exam General Appearance: NAD, awake alert Neck: no JVD Heart: RRR, no murmur, no gallops, no rubs Respiratory: CTAB, no wheezes, no rales, no ronchi Gastrointestinal: soft, non-tender, non-distended, normal bowel sounds Extremities: no edema Neurological: cranial nerve grossly intact Psychiatric: normal affect, normal behavior, A&O x 3 Hosp A/P - Plan * langerhans cell histiocytosis * staph aureus cellulitis (R elbow, worse) * neutropenic fever * sepsis (resolved) * continue keflex * * 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
--- NOTE | 2020-01-05 19:09 | PRG ---
DATE OF SERVICE: 01/05/2020 SUBJECTIVE: Patient was seen and examined at bedside and overnight events noted. Patient denies any shortness of breath or chest pain or palpitation. No history of nausea or vomiting or diarrhea or fever or chills or cramps. OBJECTIVE: GENERAL: This is a well-built male, in no apparent distress. VITAL SIGNS: Temperature 99.6. Heart rate 89. Respiratory rate 20. Blood pressure 94/62. HEENT: Atraumatic, normocephalic. Oral mucosa is moist NECK: Supple. CARDIOVASCULAR: S1, S2 heard. Rate and rhythm regular. RESPIRATORY: Clear to auscultation. GASTROINTESTINAL: Abdomen is soft. MUSCULOSKELETAL: No tenderness. No edema. DERMATOLOGIC: No skin rash. NEUROLOGIC: Alert and awake and oriented X3. No focal neurologic deficits. Moving all the extremities. PSYCHIATRIC: Mood and affect normal. LABORATORY DATA: Sodium is 140, potassium is 3.8, BUN is 12, and creatinine is 1.03. ASSESSMENT AND PLAN: 1. Hypernatremia, much better. Did respond to desmopressin with improvement in urine osmolality. So, the plan is to continue desmopressin for now. Monitor sodium closely. 2. Edema, controlled. 3. Hypertension. 4. Hypokalemia. 5. Chronic kidney disease. 6. 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 7. Continue desmopressin. Monitor sodium closely. We will follow. Job ID: [id number]
[2020-01-06] MEDS: Cephalexin 250 MG CAP PO SCH ×4 (05:36→23:56)
[2020-01-06 06:56] LABS: Anion Gap 9 mmol/L (10-20); BUN (Urea Nitrogen) 12 mg/dL (8.9-20.6); Calc. Creatinine Clearance 112 mL/min (70-130); Carbon Dioxide 28 mmol/L (22-29); Chloride 105 mmol/L (98-107); Estimated GFR-MDRD 71; Glucose 88 mg/dL (70-105); Magnesium 2.4 mg/dL (1.6-2.6); Sodium 138 mmol/L (136-145)
[2020-01-06] MEDS: Mometasone/Formoterol 120 PUFF INHALER INH SCH ×2 (07:38→20:29)
[2020-01-06] MEDS: Potassium Chloride 20 MEQ TAB PO SCH (08:35)
[2020-01-06] MEDS: Desmopressin Acetate 0.01% Nasal Solution NASAL SCH (08:36)
[2020-01-06] MEDS: Nystatin Powder 15 GM BOT TOP SCH ×2 (08:36→20:49)
--- NOTE | 2020-01-06 12:42 | PRG ---
DATE OF SERVICE: 01/06/2020 SUBJECTIVE: Patient was seen and examined at bedside and overnight events noted. Patient denies any shortness of breath or chest pain or palpitation. No history of nausea or vomiting or diarrhea or fever or chills or cramps. OBJECTIVE: GENERAL: This is well-built male, in no apparent distress. VITAL SIGNS: Temperature 98.6, heart rate , respiratory rate 19, and blood pressure 104/60. HEENT: Atraumatic, normocephalic. Oral mucosa is moist. NECK: Supple. CARDIOVASCULAR: S1, S2 heard. Rate and rhythm regular. RESPIRATORY: Clear to auscultation. GASTROINTESTINAL: Abdomen is soft. MUSCULOSKELETAL: No tenderness. No edema. DERMATOLOGIC: No skin rash. NEUROLOGIC: Alert and awake and oriented x3. No focal neurologic deficits. Moving all the extremities. PSYCHIATRIC: Mood and affect normal. LABORATORY DATA: Potassium 4.0, BUN is 12, and creatinine is 1.17. ASSESSMENT: 1. Hypernatremia - better. closely monitor sodium level. 2. Edema, controlled. 3. Hypertension. 4. Hypokalemia. 5. Chronic kidney disease, stage 3. 6. 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 Follow with Heme/Onc and Endocrinology. Job ID: [id number] [facility]
--- NOTE | 2020-01-06 15:16 | PDOC.HOSPP ---
- Subjective Encounter Date: 01/06/20 Encounter Time: 11:55 Subjective: pt sleeping, R.. elbow examined, still appears swollen, some degree of floculency. d/w dc plan w.. family. MRI has to be followed. - Objective Vital Signs & Weight: Vital Signs (12 hours) Temp Pulse Resp BP Pulse Ox 01/06/20 08:00 96 01/06/20 07:01 98.6 F 85 19 104/64 96 Weight Admit Weight 212 lb 4.8 oz Weight 212 lb 4.8 oz I&O: 01/05/20 01/06/20 01/07/20 06:59 06:59 07:59 Intake Total 840 710 Output Total 530 Balance 840 180 Result Diagrams: 01/04/20 05:24 01/06/20 06:06 Additional Labs: Accuchecks 01/06/20 01/06/20 01/05/20 11:17 04:31 19:09 POC Glucose 101 87 139 H 01/05/20 16:31 POC Glucose 94 Hospitalist ROS - Medication Medications: Active Medications Generic Name Dose Route Start Last Admin Trade Name Freq PRN Reason Stop Dose Admin Acetaminophen 650 mg 12/28/19 17:03 01/01/20 15:30 Tylenol PO 650 mg Q4H PRN Administration Headache/Fever/Mild Pain (1-3) Acetaminophen/Codeine Phosphate 1 tab 12/28/19 21:45 01/03/20 21:00 Tylenol #3 PO 1 tab Q6H PRN Administration Severe Pain (7-10) Cephalexin 500 mg 01/02/20 23:59 01/06/20 11:43 Keflex PO 500 mg Q6HR SNEHAL Administration Desmopressin Acetate 0.1 ml 01/05/20 09:00 01/06/20 08:36 Ddavp Nasal 0.01% Nasal Solution NASAL Not Given DAILY SNEHAL Mometasone Furoate/Formoterol Fumar 2 puff 12/29/19 06:30 01/06/20 07:38 Dulera 200 Mcg/5 Mcg Inhaler INH 2 puff BID-RT SNEHAL Administration Nystatin 0 gm 12/29/19 09:00 01/06/20 08:36 Mycostatin Powder TOP 1 applic BID SNEHAL Administration Potassium Chloride 40 meq 01/04/20 09:00 01/06/20 08:35 K-Dur PO 40 meq DAILY SNEHAL Administration Sodium Chloride 10 ml 12/29/19 21:00 01/06/20 08:35 Flush - Normal Saline IVF 10 ml Q12HR SNEHAL Administration - Exam General Appearance: NAD Eye: PERRL ENT: normocephalic atraumatic Neck: supple Heart: RRR Respiratory: CTAB Gastrointestinal: normal bowel sounds Extremities - other findings: R.. elbow examined, still appears swollen, some degree of floculency. 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 which likely in am, if MRI w.. no abn... * FW with onc and Endo for histiocytosis. *
[2020-01-07] MEDS: Cephalexin 250 MG CAP PO SCH ×4 (05:08→23:39)
[2020-01-07] MEDS: Nystatin Powder 15 GM BOT TOP SCH ×2 (08:30→20:21)
[2020-01-07] MEDS: Potassium Chloride 20 MEQ TAB PO SCH (08:30)
[2020-01-07] MEDS: Desmopressin Acetate 0.01% Nasal Solution NASAL SCH (08:38)
[2020-01-07] MEDS: Mometasone/Formoterol 120 PUFF INHALER INH SCH ×2 (11:14→18:52)
--- NOTE | 2020-01-07 13:22 | PRG ---
DATE OF SERVICE: 01/07/2020 SUBJECTIVE: Patient was seen and examined at bedside and overnight events noted. Patient denies any shortness of breath or chest pain or palpitation. No history of nausea or vomiting or diarrhea or fever or chills or cramps. OBJECTIVE: GENERAL: This is well-built male, in no acute distress. VITAL SIGNS: Temperature 99.8. Heart Rate 90. Respiratory rate 18, blood pressure 98/65. HEENT: Atraumatic, normocephalic. Oral mucosa is moist. NECK: Supple. CARDIOVASCULAR: S1, S2 heard. Rate and rhythm regular. RESPIRATORY: Clear to auscultation. GASTROINTESTINAL: Abdomen is soft. MUSCULOSKELETAL: No tenderness. No edema. DERMATOLOGIC: No skin rash. NEUROLOGIC: Alert and awake and oriented x3. No focal neurologic deficits. Moving all the extremities. PSYCHIATRIC: Mood and affect normal. LABORATORY DATA: Not done today. ASSESSMENT AND PLAN: 1. Hypernatremia, better. 2. Edema. 3. Hypertension. 4. Hypokalemia. 5. Central diabetes insipidus. Follow with Endocrinology. 6. Histiocytosis. 7. Monitor sodium closely. Job ID: [id number]
--- NOTE | 2020-01-07 15:25 | PDOC.HOSPP ---
- Subjective Encounter Date: 01/07/20 Encounter Time: 11:00 Subjective: pt doing well, MRI report pending. family at bedside. R. elbow - some seepage. - Objective Vital Signs & Weight: Vital Signs (12 hours) Temp Pulse Resp BP Pulse Ox 01/07/20 08:00 95 01/07/20 07:14 98.2 F 91 18 108/65 94 L Weight Admit Weight 212 lb 4.8 oz Weight 212 lb 4.8 oz I&O: 01/06/20 01/07/20 01/08/20 05:59 06:59 06:59 Intake Total Output Total Balance Result Diagrams: 01/04/20 05:24 01/06/20 06:06 Additional Labs: Accuchecks 01/07/20 01/07/20 01/06/20 12:36 04:35 20:46 POC Glucose 129 H 115 H 106 01/06/20 15:20 POC Glucose 88 Hospitalist ROS - Medication Medications: Active Medications Generic Name Dose Route Start Last Admin Trade Name Freq PRN Reason Stop Dose Admin Acetaminophen 650 mg 12/28/19 17:03 01/01/20 15:30 Tylenol PO 650 mg Q4H PRN Administration Headache/Fever/Mild Pain (1-3) Acetaminophen/Codeine Phosphate 1 tab 12/28/19 21:45 01/03/20 21:00 Tylenol #3 PO 1 tab Q6H PRN Administration Severe Pain (7-10) Cephalexin 500 mg 01/02/20 23:59 01/07/20 12:33 Keflex PO 500 mg Q6HR SNEHAL Administration Desmopressin Acetate 0.1 ml 01/05/20 09:00 01/07/20 08:38 Ddavp Nasal 0.01% Nasal Solution NASAL 0.1 ml DAILY SNEHAL Administration Mometasone Furoate/Formoterol Fumar 2 puff 12/29/19 06:30 01/07/20 11:14 Dulera 200 Mcg/5 Mcg Inhaler INH 2 puff BID-RT SNEHAL Administration Nystatin 0 gm 12/29/19 09:00 01/07/20 08:30 Mycostatin Powder TOP 1 applic BID SNEHAL Administration Potassium Chloride 40 meq 01/04/20 09:00 01/07/20 08:30 K-Dur PO 40 meq DAILY SNEHAL Administration Sodium Chloride 10 ml 12/29/19 21:00 01/07/20 08:30 Flush - Normal Saline IVF 10 ml Q12HR SNEHAL Administration - Exam General Appearance: NAD, awake alert ENT: normocephalic atraumatic Neck: supple Heart: RRR Respiratory: CTAB, no rales, no ronchi, normal chest expansion Gastrointestinal: soft, normal bowel sounds Extremities - other findings: r elbow - some dischafgte - white, but ocntianed. 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 which likely in am, if MRI w.. no abn... * FW with onc and Endo for histiocytosis. * * [facility] MRI report, once reviewed, prob dc - wednesday. *
[2020-01-07] MEDS ORDERED: diphenhydrAMINE 50 MG/ML VIAL ONE (15:51)
--- NOTE | 2020-01-07 16:23 | MRI ---
MR of the right elbow without contrast Indication history of an open wound to the right elbow with MRSA infection and a immunocompromise sta te COMPARISON: None FINDINGS: 20 cc of MultiHance was utilized for the exam. There is susceptibility artifact within the subcutaneous tissues of the medial right elbow limiting t he exam. Motion artifact also limits image detail. No definite signal abnormality or region of abnormal enhancement is seen involving the bones of the d istal humerus or proximal forearm to suggest presence of an osteomyelitis. There is cellulitis underlying a skin blister of the posterior elbow. There is a very small subcutaneous abscess, overlyi ng the posterior aspect of the olecranon process, on image 10 of series 14 image 10 of series 13, measuring 15 x 15 mm. The visualized triceps insertion, biceps and brachialis insertions are normal a ppearing. Visualized aspects of the medial and lateral epicondylar regions appear within normal limits. Visualized aspects of the radial nerve appear within normal limits. IMPRESSION: 1. Cellulitis and small subcutaneous abscess involving the posterior soft tissues of the right elbow. Small superficial skin blister is seen involving the posterior olecranon soft tissues. 2. No evidence for osteomyelitis of the right elbow. No evidence of septic arthritis of the right elb ow. 3. Calyx susceptibility artifact in the soft tissues of the medial right elbow limiting the exam
[2020-01-07] MEDS: Acetaminophen 325 MG TAB PO PRN (22:09)
[2020-01-08] MEDS: Cephalexin 250 MG CAP PO SCH (05:27)
[2020-01-08 06:14] LABS: Anion Gap 9 mmol/L (10-20); BUN (Urea Nitrogen) 10 mg/dL (8.9-20.6); Calc. Creatinine Clearance 130 mL/min (70-130); Carbon Dioxide 26 mmol/L (22-29); Chloride 102 mmol/L (98-107); Estimated GFR-MDRD 85; Glucose 84 mg/dL (70-105); Sodium 133 mmol/L (136-145)
[2020-01-08] MEDS: Mometasone/Formoterol 120 PUFF INHALER INH SCH (07:14)
[2020-01-08] MEDS: Potassium Chloride 20 MEQ TAB PO SCH (08:43)
[2020-01-08] MEDS: Desmopressin Acetate 0.01% Nasal Solution NASAL SCH (08:44)
[2020-01-08] MEDS: Nystatin Powder 15 GM BOT TOP SCH (08:46)
--- NOTE | 2020-01-08 11:07 | PRG ---
DATE OF SERVICE: 01/08/2020 SUBJECTIVE: A 49-year-old gentleman being seen for hyponatremia. The patient denied nausea, vomiting, or chest pain. OBJECTIVE: GENERAL: On examination, the patient is awake and alert. VITAL SIGNS: Afebrile, pulse 85, breathing at 16, and blood pressure 99/60. HEENT: Head normocephalic and atraumatic. Eyes intact, no ulcers. Nose intact, no ulcers. Ears intact, no ulcers. NECK: Supple. No JVD. CHEST: Symmetrical and clear. CARDIOVASCULAR: Shows S1 and S2, no rub, no murmur. GASTROINTESTINAL: Abdomen is soft, bowel sounds positive. EXTREMITIES: Show no edema or ulcers. SKIN: Shows no rash or petechiae. MUSCULOSKELETAL: Shows no joint swelling or stiffness. GENITOURINARY: Shows no Martin or CVA tenderness. NEUROLOGIC: Motor intact. Cranial nerves intact. LABORATORY DATA: Reviewed. ASSESSMENT AND PLAN: 1. Hyponatremia, resolved. 2. Chronic kidney disease, stage 2, stable. 3. Diabetes insipidus. Follow up with Endocrinology. I will sign off on this patient. Please reconsult as needed. Job ID: [id number]
[2020-01-08 13:14] VITALS: BP 98/63; TEMP 99.1
--- NOTE | 2020-01-08 14:16 | PDOC.MOPN ---
Interval History: feels well, planning on dc today - Vital Signs Vital Signs: Vital Signs (12 hours) Temp Pulse Resp BP BP Pulse Ox 01/08/20 13:12 99.1 F 97 18 98/63 96 01/08/20 08:00 98.7 F 89 20 99/63 97 01/08/20 03:31 97.7 F 85 18 104/71 91 L Weight Admit Weight 212 lb 4.8 oz Weight 212 lb 4.8 oz - Physical Exam General: Alert, Oriented x3, No acute distress HEENT: Atraumatic, PERRLA, EOMI, Mucous membr. moist/pink Lungs: Clear to auscultation, Normal air movement Cardiovascular: Regular rate, Normal S1, Normal S2, No murmurs, Gallops, Rubs Neurological: Normal speech - Labs Result Diagrams: 01/04/20 05:24 01/08/20 05:26 Lab results: Laboratory Results - last 24 hr 01/08/20 11:52: POC Glucose 106 01/08/20 05:26: Sodium 133 L, Potassium 4.0, Chloride 102, Carbon Dioxide 26, Anion Gap 9 L, BUN 10, Creatinine 0.95, Estimated GFR (MDRD) 85, Glucose 84, Calcium 8.0 01/08/20 03:34: POC Glucose 90 01/07/20 19:44: POC Glucose 97 01/07/20 16:38: POC Glucose 103 Status: lab reviewed by me A/P - Problem (1) Febrile neutropenia Current Visit: Yes Code(s): D70.9 - NEUTROPENIA, UNSPECIFIED; R50.81 - FEVER PRESENTING WITH CONDITIONS CLASSIFIED ELSEWHERE Status: Acute (2) Langerhans cell histiocytoses Current Visit: No Code(s): C96.6 - UNIFOCAL LANGERHANS-CELL HISTIOCYTOSIS Status: Chronic - Plan Plan: Follow-up with Dr. Smith on Wednesday at 10:15 Next cycle chemo Tuesday 01/16
--- NOTE | 2020-01-08 14:56 | PRG ---
DATE OF SERVICE: 01/08/2020 SUBJECTIVE: Mr. Marques Cowan is feeling much better. No respiratory symptoms or abdominal pain. No diarrhea. Right elbow much improved. OBJECTIVE: VITAL SIGNS: T-max 99.3, blood pressure 99/63, pulse 89, respirations 20, O2 saturations 97%. GENERAL: Appears in no distress. Looks much better. EXTREMITIES: Right elbow with marked decrease in inflammatory changes. LUNGS: Clear. HEART: S1 and S2, regular rate. ABDOMEN: Soft, not distended. Perineal wounds about the same, but clean base. LABORATORY DATA: White cell count 5.7, hemoglobin 8.7. Chemistry with creatinine 0.95. Repeat blood cultures from December 31, no growth. ASSESSMENT AND DISCUSSION: Langerhans histiocytosis with perineal involvement, chronic wounds on chemo therapy with neutropenic fever and Staph aureus methicillin sensitive soft tissue infection, right elbow with bacteremia. The patient to be discharged on Keflex for another 2 weeks. Follow up in the clinic. Job ID: [id number]
--- NOTE | 2020-01-09 10:25 | DIS ---
DATE OF ADMISSION: 12/28/2019 DATE OF DISCHARGE: 01/08/2020 DISCHARGE DIAGNOSES: 1. Febrile neutropenia. 2. Langerhans cell histiocytosis. 3. Methicillin-sensitive Staphylococcus aureus cellulitis in the right elbow and also small subcutaneous abscess. 4. Neutropenic fever that has resolved. 5. Diabetes insipidus due to infiltrative Langerhans cell histiocytosis. 6. Hypoglycemia that has resolved. 7. Stage II decubitus ulcer, followed by Wound Care. DISCHARGE MEDICATIONS: 1. Keflex 500 mg twice a day for 14 days. 2. Symbicort two puffs twice a day. 3. Nystatin 60 g one application b.i.d. 4. Tylenol 1 tablet. 5. Albuterol 2 puffs q.4 hours. 6. Glyburide 1.25 mg daily. PHYSICAL EXAMINATION: On the day of discharge, he appears well. His temperature is 97.7, pulse is 85, blood pressure 104/71, saturating 97% on room air. HOSPITAL COURSE: This is a 49-year-old male, admitted on December 28 for febrile neutropenia and sepsis with cellulitis on his right elbow. This area was debrided and culture obtained. Fluid was very honey-colored and thin, not turbid, not purulent. He was started on vancomycin and cefepime. The patient also had hypokalemia that has resolved with supplements. His course was complicated with hypernatremia and that has improved over the time. He also had a central diabetes insipidus, probably due to histiocytosis and he is expected to follow up with Oncology as well as Endocrinology as outpatient. Transcribing Machine Mechanic, Dr. Mock also followed with us. MRI of the right elbow did not show osteomyelitis, but mild subcutaneous abscess. Dr. Dillard, Infectious Disease followed with and felt that does not need any further debridement. His blood culture grow some micrococcus. Repeat blood culture on December 31 were negative for any growth. Urine culture did not grow any organisms. Flu was negative. The patient will be getting Keflex for next 2 weeks. He will be following with Dr. Clarke on Wednesday at 10:15 a.m. He will also follow up with his chemo on Wednesday. DISCHARGE INSTRUCTIONS: 1. Activity: As tolerated. 2. Diet: Regular diet. 3. Followup: Follow up with Dr. Smith on Wednesday at 10:15 a.m. Chemo is scheduled for Wednesday. Discharge time took over 30 minutes. Job ID: [id number] MTDD
--- NOTE | 2020-01-09 20:43 | PQF ---
[employer] Stonecutter Crystal Reports Winform Viewer CRIS CLAYTON ELOINA PERDOMO [id number] [id number] CLINICAL DOCUMENTATION CLARIFICATION FORM: POST DISCHARGE Addendum to original discharge summary date: ____ Late entry note date: __ DATE: 01/09/20 ATTN: Eloina Perdomo Please exercise your independent, professional judgment in responding to the clarification form. Clinical indicators are provided on the bottom of this form for your review Can you please further clarify the specificity of Pancytopenia? Please check appropriate box(s): Pancytopenia due to: [ x ] Chemotherapy/antineoplastic drugs [ ] Other drug-induced (please specify if known): [ ] Congenital [ ] Other diagnosis [ ] Unable to determine In addition, please specify: Present on Admission (POA): [ ] Yes [ ] No [ ] Unable to determine For continuity of documentation, please document condition throughout progress notes and discharge summary. Thank You. CLINICAL INDICATORS - SIGNS / SYMPTOMS / LABS Laboratory- "WBC 1.7,1.4, 2.1 L" Onco PN pg.2- Pancytopenia H and P pg.neutropenic sepsis Consult pg.1- Neutropenic fever Consult pg.3- agranulocytosis following chemotherapy Hospitalist PN 3/1 pg.1- febrile at 101.5 Hospitalist PN 3/1 pg.1- remains severely neutropenic RISK FACTORS Langerhans histiocytosis- H and P pg.3 On chemotherapy- H and P pg.1 Chronic wounds on chemo- PN 39 pg.1 MSSA cellulitis- DS pg.1 Metastatic cancer to bone, soft tissue and lung- Consult pg.1 Dr. Conrad TREATMENT: Oncology Consult Dr. Morris Infectious Consult Dr. Dillard IV Fluids- MAR Complete CBC monitoring- Laboratory IV antibiotics- MAR (This form is maintained as a part of the permanent medical record) 2014 [employer] All Rights Reserved [email or web address]
== END 2020-01-08 14:41 | disposition home or self-care (01) | DRG 871 ==
LOC: ERS 10:59 → T4-B 13:33
PROVIDERS: ADMIT Internal Medicine; ATTEND Internal Medicine
DX: A41.01 Sepsis due to Methicillin susceptible Staphylococcus aureus (principal); D61.810 Antineoplastic chemotherapy induced pancytopenia; L03.113 Cellulitis of right upper limb; L02.413 Cutaneous abscess of right upper limb; C96.6 Unifocal Langerhans-cell histiocytosis; E23.2 Diabetes insipidus; E87.0 Hyperosmolality and hypernatremia; C78.00 Secondary malignant neoplasm of unspecified lung; C79.51 Secondary malignant neoplasm of bone; C79.89 Secondary malignant neoplasm of other specified sites; E87.1 Hypo-osmolality and hyponatremia; R50.81 Fever presenting with conditions classified elsewhere; E11.649 Type 2 diabetes mellitus with hypoglycemia without coma; E87.6 Hypokalemia; I12.9 Hypertensive chronic kidney disease with stage 1 through stage 4 chronic kidney disease, or unspecified chronic kidney disease; R59.0 Localized enlarged lymph nodes; D70.1 Agranulocytosis secondary to cancer chemotherapy; T45.1X5A Adverse effect of antineoplastic and immunosuppressive drugs, initial encounter; E11.22 Type 2 diabetes mellitus with diabetic chronic kidney disease; N18.3 Chronic kidney disease, stage 3 (moderate); E66.9 Obesity, unspecified; L89.892 Pressure ulcer of other site, stage 2; J44.9 Chronic obstructive pulmonary disease, unspecified; Z90.49 Acquired absence of other specified parts of digestive tract; Z87.891 Personal history of nicotine dependence; Z79.84 Long term (current) use of oral hypoglycemic drugs; Z79.51 Long term (current) use of inhaled steroids; Z79.899 Other long term (current) drug therapy; Z93.3 Colostomy status; Z68.37 Body mass index [BMI] 37.0-37.9, adult
CPT/HCPCS: 36415; 36416; 71045; 80048; 80053; 80202; 81003; 81015; 82248; 82565; 83605; 83615; 83735; 83880; 83930; 83935; 84100; 84300; 84484; 84550; 85025; 87040; 87070; 87077; 87086; 87149; 87186; 87205; 87633; 87804; 93005; 96361; 96365; 96366; 96367; 96372; J0692; J1200; J1447; J1642; J1956; J2185; J2248; J2405; J3370; J3475; J3480; J3490; J7050; Q0138

== ENCOUNTER 2020-01-17 09:18 | Day surgery (SDC) | payer OTHER ==
[~2020-01-17 09:18] MED LIST changes: -Ferumoxytol (NON ERSD) 510 MG in Sodium Chloride 0.9% 250 ML 150 ML IVPB SCH; +Ondansetron 2MG/ML MDV 10 MG in Sodium Chloride 0.9% 50 ML IVPB SCH
[2020-01-17] MEDS ORDERED: Sodium Chloride 0.9% 20 ML ONE (09:22)
[2020-01-17 10:09] VITALS: BP 131/73; TEMP 98
== END 2020-01-17 14:06 | disposition home or self-care (01) ==
LOC: ONC/OP 09:18
PROVIDERS: ATTEND Internal Medicine Hematology & Oncology
DX: Z51.11 Encounter for antineoplastic chemotherapy (principal); C96.0 Multifocal and multisystemic (disseminated) Langerhans-cell histiocytosis; D50.0 Iron deficiency anemia secondary to blood loss (chronic); D70.8 Other neutropenia
CPT/HCPCS: 36416; 96375; 96409; J1642; J2405; J9360

== ENCOUNTER 2020-01-17 14:40 | Emergency (ER) | payer OTHER ==
[2020-01-17 16:05] LABS: Base Excess-Venous 3.1 mmol/L (-2.0 to 3.0); CO2 Tension (PvCO2) 50.2 mmHg (40.0-50.0); Calcium, Ionized 1.22 mmol/L (See Comments:); Chloride 107 mmol/L (98-107); Hemoglobin - Calc 9.2 g/dL (14.0-18.0); Potassium 4.3 mmol/L (3.5-5.1); Sodium 148 mmol/L (138-145); T. Carbon Dioxide 30.6 mmol/L (22.0-28.0); vO2 Saturation-calc 66.2 % (60.0-85.0)
[2020-01-17 16:08] LABS: #Lymphocytes 1.9 thou/uL (1.20-3.40); #Monocytes 0.3 thou/uL (0.11-0.59); #Neutrophils 5.5 thou/uL (1.40-6.50); %Basophils 0.1 % (0.0-1.0); %Eosinophils 0.4 % (0.0-10.0); %Lymphocytes 24.8 % (21.0-51.0); %Monocytes 4.3 % (0.0-10.0); %Neutrophils 70.4 % (42.0-75.0); Hemoglobin 11.7 g/dL (14.0-18.0); Mean Corpuscular HGB CONC 31.6 g/dL (32.0-36.0); Mean Corpuscular Volume 85.3 fL (78.0-98.0); Mean Platelet Volume 8.6 fL (7.4-10.4); Platelet Count 234 thou/uL (130-400); Red Blood Cell (RBC) Count 4.33 mill/uL (4.70-6.10); White Blood Cell (WBC) Count 7.8 thou/uL (4.8-10.8)
--- NOTE | 2020-01-17 16:11 | RAD ---
Chest AP view INDICATION: History of pneumonia COMPARISON: December 28, 2019 FINDINGS: Lungs: Chronic lung scarring is stable. Right chest wall port is stable. Cardiac silhouette: Mild cardiomegaly is stable. Pulmonary vasculature: Normal Pleural spaces: No pleural effusion or pneumothorax is demonstrated. Upper abdomen: No abnormality seen. Osseous structures: No acute osseous abnormality. Additional findings: None. IMPRESSION: Stable chronic lung changes. Stable mild cardiomegaly.
[2020-01-17 16:24] LABS: ALT (SGPT) 69 U/L (8-55); AST (SGOT) 36 U/L (5-34); Albumin 3.9 g/dL (3.5-5.0); Alkaline Phosphatase 105 U/L (40-110); Anion Gap 16 mmol/L (10-20); BUN (Urea Nitrogen) 30 mg/dL (8.9-20.6); Bilirubin, Total 0.5 mg/dL (0.2-1.2); Calc. Creatinine Clearance 0 mL/min (70-130); Calcium 9.2 mg/dL (7.8-10.44); Carbon Dioxide 27 mmol/L (22-29); Chloride 107 mmol/L (98-107); Estimated GFR-MDRD 51; Globulin 4.1 g/dL (2.4-3.5); Glucose 532 mg/dL (70-105); Sodium 146 mmol/L (136-145)
[2020-01-17 16:46] LABS: Anisocytosis SLIGHT = 6-15 cells (100X) (0-5/hpf); Hypochromia SLIGHT = 6-15 cells (100X) (0-5/hpf); MDiff Complete? YES; Ovalocytes SLIGHT = 2-5 cells (100X) (0-1/hpf); Platelet Morphology Comment Appears Adequate; Polychromasia SLIGHT = 2-3 cells (100X) (0-2/hpf); Tear Drops SLIGHT = 2-5 cells (100X) (0-1/hpf)
[2020-01-17 17:14] LABS: Bilirubin Negative (Negative); Blood, Urine Negative (Negative); Clarity Clear (Clear); Glucose, Urine (Dipstick) Greater than 1000 mg/dL (Negative); Leukocyte Negative Leu/uL (Negative); Nitrite Negative (Negative); Protein, Urine (Dipstick) Negative (Neg-Trace); Urobilinogen Normal mg/dL (Less than 2)
[2020-01-17] MEDS ORDERED: Insulin Regular 300 UNITS/3 ML VIAL ONE ×2 (17:19→17:22)
== END 2020-01-17 19:17 | disposition home or self-care (01) ==
LOC: ERS 14:40
DX: E11.65 Type 2 diabetes mellitus with hyperglycemia (principal); J45.909 Unspecified asthma, uncomplicated; Z79.899 Other long term (current) drug therapy
CPT/HCPCS: 36416; 71045; 81003; 82010; 82330; 82803; 85025; 96361; 96374; J1815

== ENCOUNTER 2020-01-24 11:48 | Day surgery (SDC) | payer OTHER ==
[~2020-01-24 11:48] MED LIST changes: -Ondansetron 2MG/ML MDV 10 MG in Sodium Chloride 0.9% 50 ML IVP SCH
[2020-01-24 12:57] VITALS: BP 119/83; TEMP 98.9
== END 2020-01-24 13:53 | disposition home or self-care (01) ==
LOC: ONC/OP 11:48
PROVIDERS: ATTEND Internal Medicine Hematology & Oncology
DX: Z51.11 Encounter for antineoplastic chemotherapy (principal); C96.0 Multifocal and multisystemic (disseminated) Langerhans-cell histiocytosis; D50.0 Iron deficiency anemia secondary to blood loss (chronic); D70.8 Other neutropenia
CPT/HCPCS: 36415; 80053; 82248; 83615; 84100; 84550; 96375; 96409; J2405; J9360

== ENCOUNTER → 2020-02-08 | Day surgery (SDC) | payer OTHER ==
[~2020-02-08] MED LIST changes: +Sodium Chloride 0.9% 20 ML ONE
== END | disposition home or self-care (01) ==
LOC: ONC/OP 11:22
PROVIDERS: ATTEND Internal Medicine Hematology & Oncology
DX: Z51.11 Encounter for antineoplastic chemotherapy (principal); C96.0 Multifocal and multisystemic (disseminated) Langerhans-cell histiocytosis; D70.8 Other neutropenia; D50.0 Iron deficiency anemia secondary to blood loss (chronic); E11.9 Type 2 diabetes mellitus without complications; J44.9 Chronic obstructive pulmonary disease, unspecified; Z98.890 Other specified postprocedural states; Z87.891 Personal history of nicotine dependence; Z79.899 Other long term (current) drug therapy
CPT/HCPCS: 96375; 96409; J1642; J2405; J9360

== ENCOUNTER 2020-02-15 10:36 | Day surgery (SDC) | payer OTHER ==
[~2020-02-15 10:36] MED LIST changes: -Sodium Chloride 0.9% 20 ML ONE
[2020-02-15] MEDS ORDERED: Sodium Chloride 0.9% 20 ML ONE (10:42)
[2020-02-15 12:17] VITALS: BP 117/61; TEMP 98.2
== END 2020-02-15 12:19 | disposition home or self-care (01) ==
LOC: ONC/OP 10:36
PROVIDERS: ATTEND Internal Medicine Hematology & Oncology
DX: Z51.11 Encounter for antineoplastic chemotherapy (principal); C96.0 Multifocal and multisystemic (disseminated) Langerhans-cell histiocytosis; D50.0 Iron deficiency anemia secondary to blood loss (chronic); D70.8 Other neutropenia
CPT/HCPCS: 80053; 82248; 83615; 84100; 84550; 96375; 96413; J1642; J2405; J9360

== ENCOUNTER → 2020-02-29 | Day surgery (SDC) | payer OTHER ==
[~2020-02-29] MED LIST changes: +Sodium Chloride 0.9% 20 ML ONE
[2020-02-29 14:41] VITALS: BP 117/75; TEMP 98.6
== END ==
LOC: ONC/OP 13:55
PROVIDERS: ATTEND Internal Medicine Hematology & Oncology
DX: Z51.11 Encounter for antineoplastic chemotherapy (principal); C96.0 Multifocal and multisystemic (disseminated) Langerhans-cell histiocytosis; D50.0 Iron deficiency anemia secondary to blood loss (chronic); D70.8 Other neutropenia
CPT/HCPCS: 80053; 82248; 83615; 84100; 84550; 96375; 96409; J1642; J2405; J9360

== ENCOUNTER 2020-03-20 20:01 | Inpatient (IN) | payer OTHER ==
[~2020-03-20 20:01] MED LIST changes: +Iopamidol-370 76% 500 ML 1 ML ONE; -Ondansetron 2MG/ML MDV 10 MG in Sodium Chloride 0.9% 50 ML IVPB SCH; -SODIUM CHLORIDE 0.9% IVPB SCH; -Sodium Chloride 0.9% 20 ML ONE; -VINBLASTINE SULFATE IVPB SCH
--- NOTE | 2020-03-20 20:38 | RAD ---
Exam: Chest one view HISTORY:Dyspnea. Shortness of breath. Comparison: 01/17/2020 FINDINGS: Lines and tubes: Stable right-sided Mediport catheter Cardiac silhouette:Upper normal cardiac silhouette Aorta: Unremarkable Pulmonary vessels: Normal Costophrenic angles: Clear LUNGS: Chronic fibrotic changes of the lung parenchyma. Pneumothorax: None Osseous abnormalities: Multiple old right rib fractures. IMPRESSION: No acute cardiopulmonary process.
[2020-03-20 20:49] LABS: #Lymphocytes 2.1 thou/uL (1.20-3.40); #Monocytes 0.3 thou/uL (0.11-0.59); #Neutrophils 3.4 thou/uL (1.40-6.50); %Basophils 0.5 % (0.0-1.0); %Eosinophils 0.7 % (0.0-10.0); %Lymphocytes 35.1 % (21.0-51.0); %Monocytes 5.8 % (0.0-10.0); %Neutrophils 57.8 % (42.0-75.0); Hemoglobin 7.9 g/dL (14.0-18.0); Mean Corpuscular HGB CONC 30.8 g/dL (32.0-36.0); Mean Corpuscular Hemoglobin 28.9 pg (27.0-31.0); Mean Corpuscular Volume 93.7 fL (78.0-98.0); RBC Distribution Width 18.8 % (11.5-14.5); Red Blood Cell (RBC) Count 2.75 mill/uL (4.70-6.10); White Blood Cell (WBC) Count 5.9 thou/uL (4.8-10.8)
[2020-03-20 21:08] LABS: ALT (SGPT) 8 U/L (8-55); AST (SGOT) 10 U/L (5-34); Albumin 2.5 g/dL (3.5-5.0); Alkaline Phosphatase 129 U/L (40-110); Anion Gap 12 mmol/L (10-20); BUN (Urea Nitrogen) 6 mg/dL (8.9-20.6); Bilirubin, Total 0.3 mg/dL (0.2-1.2); Calc. Creatinine Clearance 0 mL/min (70-130); Calcium 7.1 mg/dL (7.8-10.44); Carbon Dioxide 27 mmol/L (22-29); Chloride 101 mmol/L (98-107); Estimated GFR-MDRD Greater than 90; Globulin 3.8 g/dL (2.4-3.5); Glucose 88 mg/dL (70-105); Protein, Total 6.3 g/dL (6.0-8.3); Sodium 137 mmol/L (136-145)
[2020-03-20 21:14] LABS: Mean Platelet Volume 10.8 fL (7.4-10.4); Platelet Count 118 thou/uL (130-400); Platelet Morphology Comment Appears Decreased
[2020-03-20 21:17] LABS: Potassium 2.7 mmol/L (3.5-5.1)
--- NOTE | 2020-03-20 22:04 | CT ---
EXAM: CT ABDOMEN AND PELVIS HISTORY: Abdominal pain. Nausea vomiting diarrhea. COMPARISON: 08/02/2019 Procedure: Multiple contiguous axial images were obtained and a CT of the abdomen and pelvis with IV contrast. C oronal reformats were performed. FINDINGS: Lower Chest: Small bilateral pleural effusions. Chronic changes in the lung parenchyma with large ble bs and bulla. Scarring and atelectasis in the lung bases. Vessels: Normal caliber aorta. No periaortic fat stranding Heart: Normal heart size. No significant pericardial fluid Abdomen: Portal vein:Patent Gallbladder: Contracted. There is pericholecystic fluid and enhancement of the gallbladder wall. Liver: Stable calcification in the hepatic dome. No enhancing masses. Pancreas: within normal limits. Spleen: Splenomegaly, measuring 16.0 cm. No enhancing masses. Adrenals: within normal limits. Kidneys: Symmetric enhancement. No obstructive uropathy. Peritoneum: No ascites or free air, no fluid collection. Bowel: Limited evaluation due to the lack of oral contrast administration. No evidence of bowel obstr uction. Ileocecal junction is unremarkable. Normal caliber appendix. Scattered fecal material in a nondistended, nondilated colon. Redemonstration of a diverging colostomy in the left lower quadrant. Dias's pouch is redemonstrated. Mesentery and Retroperitoneum: No enlarged mesenteric or retroperitoneal lymph nodes. Abdominal Wall: Left lower quadrant colostomy with parastomal fat. Pelvis: Reproductive Organs: Reproductive organs are unremarkable. Pelvis: No mass, lymphadenopathy, free air or free fluid. Bladder: within normal limits. Bones: within normal limits. IMPRESSION: 1. No evidence of bowel obstruction. 2. Contracted gallbladder with gallbladder wall thickening and pericholecystic fluid. Correlate for a calculus cholecystitis. 3. Redemonstration of a diverging colostomy in the left lower quadrant.
[2020-03-20] MEDS ORDERED: Potassium Chloride 20 MEQ TAB ONE (22:34)
[2020-03-20] MEDS ORDERED: Pantoprazole 40 MG VIAL ONE (23:42)
[2020-03-21] MEDS ORDERED: Acetaminophen 325 MG TAB PO PRN (02:29)
[2020-03-21] MEDS ORDERED: Sodium Chloride 0.9% 1,000 ML IV SCH (02:30)
[2020-03-21] MEDS ORDERED: Insulin Regular 300 UNITS/3 ML VIAL SC PRN (02:33)
[2020-03-21] MEDS ORDERED: Dextrose 50% Abboject 50 ML SYRINGE SLOW IVP PRN (02:33)
[2020-03-21] MEDS ORDERED: Dextrose 5% in Water 1,000 ML IV PRN (02:33)
[2020-03-21] MEDS ORDERED: Ondansetron PF 4 MG/2 ML Vial IVP PRN (02:35)
[2020-03-21] MEDS ORDERED: Ondansetron ODT 4 MG TAB PO PRN (02:35)
[2020-03-21 02:45] VITALS: BMI 32.7
[2020-03-21] MEDS: Sodium Chloride 0.9% 1,000 ML IV SCH ×2 (02:55→21:39)
[2020-03-21] MEDS: Ampicillin/Sulbactam 3 GM in Sodium Chloride 0.9% 100 ML IVPB SCH ×3 (03:27→16:01)
--- NOTE | 2020-03-21 06:23 | HP ---
REASON FOR ADMISSION: Shortness of breath and diarrhea. HISTORY OF PRESENT ILLNESS: This is a 49-year-old male patient who is known to have diffuse histiocytosis and receives chemotherapy. His last session was a couple of weeks ago. He is due for another session tomorrow. He presents today complaining of shortness of breath, also abdominal pain and diarrhea. He does have a colostomy bag and he reports emptying it multiple times. He does complain of subjective chills and fevers, also a bit of cough but is nonproductive. He is also more short of breath with ambulation, but at rest appears to be much better. Initially, his pulse ox was 84%, but with oxygen, it improved to 98% on 2 L, he is somewhat of a poor historian. He did report specks of blood in his stool. His hemoglobin today was 7.9, slightly lower than his previous numbers. His systolic blood pressure was noted to be in the 90s, but otherwise when I saw him, he appeared to be doing better, less short of breath. His blood pressure improved after IV fluids. I did speak with his daughter who told me that he always had some abdominal pain, but today more than usual. He was seen in our hospital for similar reasons. He follows closely with Oncology. I did review his records and it was mentioned that he does have shortness of breath due to his histiocytosis. PAST MEDICAL HISTORY: 1. Diffuse histiocytosis with lung involvement, status post wedge resection of the lung. 2. Nonhealing sacral wound. 3. Diabetes type 2. 4. Recurrent neutropenia. SOCIAL HISTORY: He does not smoke. Does not drink alcohol. FAMILY HISTORY: Negative for histiocytosis. ALLERGIES: NO KNOWN TO HAVE ANY DRUG ALLERGIES. REVIEW OF SYSTEMS: All systems reviewed except the above-mentioned, found to be negative. PHYSICAL EXAMINATION: GENERAL: Awake, alert, oriented, does not appear in distress. VITAL SIGNS: His blood pressure is 91/59, heart rate of 90, saturating 97% on 2 L nasal cannula. HEENT: Head is nontraumatic, normocephalic. Pupils equal, reactive. Extraocular movements are intact. Nonicteric sclerae. Well injected conjunctivae. Oral mucosa normal. Nasal mucosa normal. NECK: Supple. No adenopathy. No murmur. Thyroid is not palpable. Trachea is midline. No supraclavicular lymphadenopathy. HEART: S1 and S2 regular. No murmur. No gallops. No friction rubs. No displacement in PMI. LUNGS: Fine inspiratory crackles at bilateral bases. ABDOMEN: Bowel sounds are positive. Nontender abdomen. No hepatosplenomegaly. EXTREMITIES: No lower extremity edema. No cyanosis. SKIN: Examination of his skin reveals red dots dispersed in lower abdomen and shoulder. NEURO: Cranial nerves 2 through 12 within normal limits. Normal motor function. Normal sensory function. Normal reflexes. LABORATORY DATA: Blood work shows sodium 137, potassium 2.7, creatinine 0.88, calcium 7.1, alkaline phosphatase 129, albumin 2.5. WBC 5.9, hemoglobin 7.9, previous hemoglobin was 11.7, platelet 118. Previous platelets variable, last one was 234. CT of the abdomen shows no bowel obstruction. Contracted gallbladder with gallbladder wall thickening and pericholecystic fluids correlate with acalculous cholecystitis. Redemonstration of diverting colostomy in the left lower quadrants. EKG shows normal sinus rhythm. ASSESSMENT AND PLAN: A 49-year-old male patient who is known to have multifocal histiocytosis, does receive chemotherapy, presenting with shortness of breath and diarrhea. As per our protocol, we need to rule him out for COVID-19. The test was sent, will be awaiting the results. In regard of his shortness of breath, it is seen that he does have history of shortness of breath due to his histiocytosis. He is doing better with oxygen. Continue to monitor. 1. GI. The patient does have diarrhea. We will check for WBC in the stools. He will be on IV fluid hydration. He is very hungry, so I will allow him to eat. There was the finding of contracted gallbladder on the CT. Some mention of cholecystitis. Does not seem that this is the underlying cause of his symptomatology. Nevertheless, I will cover him with IV Unasyn and consult Surgery. 2. Hematology. For his anemia, the ER physician did order a unit of blood to be transfused. We will recheck his CBC in a.m. 3. For DVT prophylaxis, he will be on SCDs. 4. For his diabetes, he will be on an insulin sliding scale. We will not start him on his metformin and will not have him on a long-acting insulin because of his already lowish glucose. 5. For his low potassium, he did receive a dose in the ER. We will recheck his electrolytes later on. I did discuss code status with him and he wishes to be a full code. Job ID: [id number]
[2020-03-21] MEDS ORDERED: Non-Formulary Item 1 EACH (Albuterol Sulfate 2 PUFF) INH PRN (06:36)
[2020-03-21] MEDS ORDERED: Non-Formulary Item 1 EACH (Pantoprazole Sodium [Protonix] 20 MG) PO SCH (09:00)
[2020-03-21] MEDS ORDERED: Non-Formulary Item 1 EACH (Budesonide-Formoterol [Symbicort 160-4.5] 2 PUFF) INH SCH (09:00)
[2020-03-21] MEDS ORDERED: Iopamidol-370 76% 500 ML 1 ML ONE (10:14)
[2020-03-21 10:44] LABS: #Eosinphils 0.1 thou/uL (0.0-0.7); #Lymphocytes 1.8 thou/uL (1.20-3.40); #Monocytes 0.4 thou/uL (0.11-0.59); #Neutrophils 2.2 thou/uL (1.40-6.50); %Basophils 0.1 % (0.0-1.0); %Eosinophils 1.2 % (0.0-10.0); %Lymphocytes 41.2 % (21.0-51.0); %Monocytes 7.9 % (0.0-10.0); %Neutrophils 49.6 % (42.0-75.0); Hemoglobin 8.1 g/dL (14.0-18.0); Mean Corpuscular HGB CONC 30.7 g/dL (32.0-36.0); Mean Corpuscular Hemoglobin 28.9 pg (27.0-31.0); Mean Corpuscular Volume 94.1 fL (78.0-98.0); Mean Platelet Volume 9.7 fL (7.4-10.4); Platelet Count 114 thou/uL (130-400); RBC Distribution Width 18.5 % (11.5-14.5); Red Blood Cell (RBC) Count 2.79 mill/uL (4.70-6.10); White Blood Cell (WBC) Count 4.5 thou/uL (4.8-10.8)
[2020-03-21 10:45] LABS: MDiff Complete? YES
[2020-03-21 10:46] LABS: Anion Gap 11 mmol/L (10-20); BUN (Urea Nitrogen) 4 mg/dL (8.9-20.6); Calc. Creatinine Clearance 146 mL/min (70-130); Calcium 6.8 mg/dL (7.8-10.44); Carbon Dioxide 26 mmol/L (22-29); Chloride 115 mmol/L (98-107); Estimated GFR-MDRD Greater than 90; Glucose 73 mg/dL (70-105); Potassium 3.5 mmol/L (3.5-5.1); Sodium 148 mmol/L (136-145)
[2020-03-21 11:47] LABS: SARS-CoV-2 MS2 Positive; SARS-CoV-2 N Gene Negative; SARS-CoV-2 S Gene Negative; SARS-CoV-2 orf1ab Negative
--- NOTE | 2020-03-21 14:57 | CT ---
CT PULMONARY ANGIOGRAM WITH IV CONTRAST AND 3D POSTPROCESSING: HISTORY: Hypoxia. Shortness of breath. Langerhans cell Histiocytosis. COMPARISON: 06/21/2016. FINDINGS: There is good contrast opacification of the pulmonary arterial vasculature without filling defects to suggest pulmonary embolism. Prominent lymph nodes are seen in the mediastinum measuring up to 1 cm in the prevascular space and 1.6 cm in the subcarinal region. No aneurysmal dilatation of the thorac ic aorta is seen. There are small bilateral pleural effusions. Cystic changes consistent with Langerhans Histiocytosis are again seen in the lung herrera bilaterally. Interval development of fibrosis has occurred since 2016. There is a soft tissue density in the right lower lobe measuring about 3 cm. This is also new since the last exam. There are degenerative changes in the spine. IMPRESSION: 1. No CT evidence of pulmonary embolism. 2. Small bilateral pleural effusions. 3. Probable 3 cm right lower lobe mass. A PET scan after a course of antibiotics would be helpful. POS: [facility]
--- NOTE | 2020-03-21 15:23 | EKG ---
Test Reason : Blood Pressure : / mmHG Vent. Rate : 096 BPM Atrial Rate : 096 BPM P-R Int : 154 ms QRS Dur : 086 ms QT Int : 382 ms P-R-T Axes : 018 015 021 degrees QTc Int : 482 ms Normal sinus rhythm Prolonged QT Abnormal ECG Confirmed by TARAS ROSE DO ([id number]), editorial assistant GEORGETTE WALDRON ([id number]) on 03/21/2020 3:22:50 PM Referred By: Confirmed By:TARAS ROSE DO
[2020-03-21] MEDS: Albuterol 200 PUFF (6.7GM INHALER) INH SCH ×2 (16:01→18:34)
[2020-03-21] MEDS: Mometasone 200 MCG/Formoterol 5 MCG 120 PUFF INHALER INH SCH (18:34)
--- NOTE | 2020-03-21 19:37 | CON ---
DATE OF CONSULTATION: 03/21/2020 REASON FOR CONSULTATION: Possible COVID. 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 He has been still getting chemo on a weekly basis and his wound in the presacral region has completely healed, and this time, he presents because of fairly rapid onset of dyspnea in the home setting. Some nausea. Some diarrhea. No documented fever. No cough. No headaches. MEDICAL HISTORY: 1. Langerhans cell histiocytosis, metastatic to bone, soft tissue, and lungs. 2. Type 2 diabetes. 3. Asthma. SOCIAL HISTORY: Never smoker. Lives in the area. ALLERGIES: NONE. FAMILY HISTORY: Noncontributory. CURRENT MEDICATIONS: 1. Ampicillin and sulbactam. 2. Insulin. 3. Zofran. PHYSICAL EXAMINATION: VITAL SIGNS: In the emergency room, he remained afebrile. Here in the hospital, he remained afebrile as well. O2 sats of 95 on 2 L, BP 101/58. GENERAL: He appears chronically ill, but is awake and oriented, recognized me. HEENT: His ocular movements conjugate. Numerous missing teeth, just a few remaining. Oral mucosa is moist. NECK: Supple. No jugular vein distention. LUNGS: Symmetric air entry. No crackles or wheezing. HEART: S1 and S2. Regular rate. ABDOMEN: Soft, not distended or tender. Colostomy appears okay. EXTREMITIES: Presacral lesion has completely healed. He moves extremities equally. Trace edema. NEUROLOGIC: Cognitive function appears to be intact. LABORATORY STUDIES: Sodium 148, creatinine 0.78, and calcium 7.1. Liver profile normal except for alkaline phosphatase of 129, which is probably of bone origin. Albumin 2.5 and globulin 3.8. White cell count was 5.9 and now 4.5, hemoglobin is 7.9 and 8.1, and platelets 114, with normal differential. COVID was not detected. Two sets of blood cultures preliminary, no growth. The patient had a CT angio with no pulmonary embolism identified, small pleural effusions, a 3 cm right lower lobe mass. Abdomen and pelvis CT with no evidence of bowel obstruction, contracted gallbladder with gallbladder wall thickening and pericholecystic fluid. ASSESSMENT: 1. Metastatic Langerhans cell histiocytosis. 2. 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 DISCUSSION: In the face of a negative COVID and the findings in the CT scan, I think we should discontinue isolation at this point. He does not have any abdominal findings that would suggest cholecystitis. We will go ahead and discontinue antimicrobial therapy. Monitor. Maybe go home tomorrow. Job ID: [id number]
[2020-03-22] MEDS: Sodium Chloride 0.9% 1,000 ML IV SCH (06:12)
[2020-03-22] MEDS: Albuterol 200 PUFF (6.7GM INHALER) INH SCH (07:20)
[2020-03-22] MEDS: Mometasone 200 MCG/Formoterol 5 MCG 120 PUFF INHALER INH SCH (07:20)
[2020-03-22 08:42] LABS: Anion Gap 13 mmol/L (10-20); BUN (Urea Nitrogen) 4 mg/dL (8.9-20.6); Calc. Creatinine Clearance 141 mL/min (70-130); Calcium 7.5 mg/dL (7.8-10.44); Carbon Dioxide 25 mmol/L (22-29); Chloride 116 mmol/L (98-107); Estimated GFR-MDRD Greater than 90; Glucose 80 mg/dL (70-105); Potassium 3.8 mmol/L (3.5-5.1); Sodium 150 mmol/L (136-145)
[2020-03-22 09:24] LABS: #Eosinphils 0.1 thou/uL (0.0-0.7); #Lymphocytes 1.8 thou/uL (1.20-3.40); #Monocytes 0.4 thou/uL (0.11-0.59); #Neutrophils 2.4 thou/uL (1.40-6.50); %Basophils 0.6 % (0.0-1.0); %Eosinophils 1.9 % (0.0-10.0); %Lymphocytes 38.7 % (21.0-51.0); %Monocytes 7.9 % (0.0-10.0); %Neutrophils 50.9 % (42.0-75.0); Anisocytosis MODERATE=16-30 cells (100X) (0-5/hpf); Elliptocytes SLIGHT = 2-5 cells (100X) (0-1/hpf); Hemoglobin 8.8 g/dL (14.0-18.0); Hypochromia MODERATE=16-30 cells (100X) (0-5/hpf); MDiff Complete? YES; Mean Corpuscular HGB CONC 29.6 g/dL (32.0-36.0); Mean Corpuscular Hemoglobin 28.6 pg (27.0-31.0); Mean Corpuscular Volume 96.8 fL (78.0-98.0); Mean Platelet Volume 9.6 fL (7.4-10.4); Platelet Count 151 thou/uL (130-400); Platelet Morphology Comment Appears Adequate; Polychromasia MODERATE = 3-4 cells (100X) (0-2/hpf); RBC Distribution Width 19.2 % (11.5-14.5); Red Blood Cell (RBC) Count 3.08 mill/uL (4.70-6.10); Tear Drops SLIGHT = 2-5 cells (100X) (0-1/hpf); White Blood Cell (WBC) Count 4.7 thou/uL (4.8-10.8)
--- NOTE | 2020-03-22 10:41 | DIS ---
DATE OF ADMISSION: 03/21/2020 DATE OF DISCHARGE: 03/22/2020 PRIMARY CARE PROVIDER: [facility]. DISCHARGE DIAGNOSES: 1. Acute hypoxic respiratory failure. 2. Gastroenteritis. 3. Hypokalemia. CONDITION OF PATIENT ON THE DAY OF DISCHARGE: Stable. I assessed Mr. Marques Cowan on the day of discharge. He denies any chest pain or shortness of breath. Vital signs are stable. S1 and S2 are heard, regular. Lungs are clear to auscultation bilaterally. DISCHARGE MEDICATIONS: No change was made to his pre-admission home medications. CONSULTATIONS DURING THIS HOSPITALIZATION: Infectious Diseases, Dr. Dillard. HOSPITAL COURSE: Mr. Marques Cowan is a pleasant 49-year-old gentleman, who was admitted to [facility] on March 21, 2020 for hypoxia and gastroenteritis. He improved with intravenous fluids. He was ruled out for COVID-19 infection. Initially, there was some concern as to whether he has cholecystitis. He did not have leukocytosis and he did not have abdominal pain. Clinically, it did not appear that he had cholecystitis. Abdominal examination was unremarkable. He was dehydrated and he is advised to maintain good oral intake. He is being discharged home in a stable condition. On the day of discharge, he has white count of 4700, hemoglobin 8.8, platelet count 151,000. Sodium 150, he has been advised to maintain good oral intake. Blood urea nitrogen 4 and creatinine 0.81. BNP during this hospitalization was normal at 94.6. Post acute care followup: With primary care provider in 3 days' time. He has been advised to follow up with his primary care provider for final blood culture reports. Preliminary blood cultures are negative at the time of this dictation. ACTIVITY: No restrictions. DIET: Diabetic. Many thanks for allowing me to participate in your patient's care. Please feel free to contact me with any questions or concerns. DISCHARGE DESTINATION: Home. TIME SPENT: Total amount of time spent coordinating this discharge: 32 minutes. Job ID: [id number]
[2020-03-22 13:01] VITALS: BP 104/62; TEMP 99.3
== END 2020-03-22 13:13 | disposition home or self-care (01) | DRG 391 ==
LOC: ERS 20:01 → 2SW 03-21 00:04 → 2NO 03-21 23:16
PROVIDERS: ADMIT Internal Medicine; ATTEND Internal Medicine
DX: K52.9 Noninfective gastroenteritis and colitis, unspecified (principal); J96.01 Acute respiratory failure with hypoxia; C96.6 Unifocal Langerhans-cell histiocytosis; C79.51 Secondary malignant neoplasm of bone; Z20.828 Contact with and (suspected) exposure to other viral communicable diseases; E11.9 Type 2 diabetes mellitus without complications; J45.909 Unspecified asthma, uncomplicated; E86.0 Dehydration; E87.6 Hypokalemia; D64.9 Anemia, unspecified; J84.10 Pulmonary fibrosis, unspecified; Z90.49 Acquired absence of other specified parts of digestive tract; Z79.51 Long term (current) use of inhaled steroids; Z79.899 Other long term (current) drug therapy; Z93.3 Colostomy status
CPT/HCPCS: 36415; 36416; 36430; 71045; 71275; 74177; 80048; 80053; 83605; 83630; 83880; 84484; 85025; 86850; 86900; 86901; 87040; 87635; 93005; 96361; 96374; C9113; J0295; J2405; J3490; P9016; Q9967; U0003

== ENCOUNTER 2020-04-16 07:31 | Outpatient (CLI) | payer OTHER ==
--- NOTE | 2020-04-16 10:48 | PET ---
PET CT: HISTORY: A 49-year-old male with multifocal and multisystemic disseminated Langerhans cell histiocytosis. The patient is undergoing therapy. Exam requested to evaluate response to therapy and subsequent treatm ent planning. TECHNIQUE: PET scanning with Ct attenuation correction was performed from the base of the brain through the prox imal thighs following the intravenous administration of 10.2 mCi [id number] in the right antecubital fossa. COMPARISON: PET CT dated 11/28/2019. CORRELATION: CTA chest of 03/21/[address] abdomen and pelvis of 03/20/2020. FINDINGS: No keith hypermetabolism is seen in the neck, chest, axillae, abdomen, pelvis, or inguinal regions. Hypermetabolic activity in the right-sided pleural plaques is again seen. This remains stable with a n SUV of about 10 in the paraesophageal region. The remainder of the plaques demonstrate interval in crease in the SUVs with a maximum SUV of 9.3 (previously 7.2) in the posteromedial plaque at the leve l of the aortic arch. These findings are likely consequence of treatment rather than worsening of di sease. No areas of tracer localization are seen in the pleura. No hypermetabolic pulmonary nodules, liver, adrenal, or skeletal lesions are identified. The hypermetabolic activity in the midline gluteal cleft is no longer seen. There is continued incre ased FDG localization in the region of the anus. IMPRESSION: No evidence of new lesions since the PET scan of 11/28/2019. Hypermetabolic lymph nodes in the upper neck have resolved in the interim. POS: [facility]
== END 2020-04-16 07:32 | disposition home or self-care (01) ==
LOC: PET 07:31
PROVIDERS: ATTEND Internal Medicine Hematology & Oncology
DX: C96.0 Multifocal and multisystemic (disseminated) Langerhans-cell histiocytosis (principal)
CPT/HCPCS: 78815; A9552

== ENCOUNTER 2020-04-25 09:05 | Day surgery (SDC) | payer SELFPAY ==
[~2020-04-25 09:05] MED LIST changes: -Iopamidol-370 76% 500 ML 1 ML ONE; +Ondansetron 2MG/ML MDV 10 MG in Sodium Chloride 0.9% 50 ML IVP SCH; +SODIUM CHLORIDE 0.9% IVPB SCH; +VINBLASTINE SULFATE IVPB SCH
[2020-04-25] MEDS ORDERED: Sodium Chloride 0.9% 20 ML ONE (09:17)
[2020-04-25 10:29] VITALS: BP 130/62; TEMP 98.6
== END 2020-04-25 10:36 | disposition home or self-care (01) ==
LOC: ONC/OP 09:05
PROVIDERS: ATTEND Internal Medicine Hematology & Oncology
DX: Z51.11 Encounter for antineoplastic chemotherapy (principal); C96.0 Multifocal and multisystemic (disseminated) Langerhans-cell histiocytosis; D50.0 Iron deficiency anemia secondary to blood loss (chronic); D70.8 Other neutropenia
CPT/HCPCS: 96375; 96409; J1642; J2405; J9360

== ENCOUNTER 2020-05-16 09:06 | Day surgery (SDC) | payer OTHER ==
[2020-05-16] MEDS ORDERED: SODIUM CHLORIDE 0.9% IVPB SCH ×2 (09:15→09:30)
[2020-05-16] MEDS ORDERED: VINBLASTINE SULFATE IVPB SCH ×2 (09:15→09:30)
[2020-05-16] MEDS ORDERED: Ondansetron 2MG/ML MDV 10 MG in Sodium Chloride 0.9% 50 ML IVP SCH (09:15)
[2020-05-16] MEDS ORDERED: Sodium Chloride 0.9% 20 ML ONE (09:20)
== END 2020-05-16 11:17 | disposition home or self-care (01) ==
LOC: ONC/OP 09:06
PROVIDERS: ATTEND Internal Medicine Hematology & Oncology
DX: C96.0 Multifocal and multisystemic (disseminated) Langerhans-cell histiocytosis (principal); D50.0 Iron deficiency anemia secondary to blood loss (chronic); D70.8 Other neutropenia
CPT/HCPCS: 96375; 96409; J1642; J2405; J9360

== ENCOUNTER 2020-05-22 18:49 | Inpatient (IN) | payer OTHER ==
[2020-05-22] MEDS ORDERED: Cefepime 2 GM VIAL ONE (19:17)
[2020-05-22] MEDS ORDERED: Vancomycin 1 GM/200 ML BAG ONE (19:17)
[2020-05-22 19:44] LABS: Hemoglobin 8.4 g/dL (14.0-18.0); Mean Corpuscular Hemoglobin 30.1 pg (27.0-31.0); Mean Corpuscular Volume 91.2 fL (78.0-98.0); RBC Distribution Width 14.8 % (11.5-14.5); Red Blood Cell (RBC) Count 2.79 mill/uL (4.70-6.10); White Blood Cell (WBC) Count 1.5 thou/uL (4.8-10.8)
[2020-05-22 20:02] LABS: ALT (SGPT) 14 U/L (8-55); AST (SGOT) 28 U/L (5-34); Albumin 2.8 g/dL (3.5-5.0); Alkaline Phosphatase 102 U/L (40-110); Anion Gap 9 mmol/L (10-20); BUN (Urea Nitrogen) 5 mg/dL (8.9-20.6); Bilirubin, Total 0.4 mg/dL (0.2-1.2); Calc. Creatinine Clearance 0 mL/min (70-130); Calcium 7.6 mg/dL (7.8-10.44); Carbon Dioxide 29 mmol/L (22-29); Chloride 104 mmol/L (98-107); Estimated GFR-MDRD Greater than 90; Globulin 3.3 g/dL (2.4-3.5); Glucose 93 mg/dL (70-105); Protein, Total 6.1 g/dL (6.0-8.3); Sodium 139 mmol/L (136-145)
[2020-05-22 20:04] LABS: Band 9 % (5-11); Elliptocytes SLIGHT = 2-5 cells (100X) (0-1/hpf); Hypochromia SLIGHT = 6-15 cells (100X) (0-5/hpf); Lymphocytes 77 % (21-51); MDiff Complete? YES; Mean Platelet Volume 6.7 fL (7.4-10.4); Monocytes 5 % (0-10); Neutrophil 2 % (42-75); Platelet Count 65 thou/uL (130-400); Platelet Morphology Comment Appears Decreased; Polychromasia SLIGHT = 2-3 cells (100X) (0-2/hpf); Potassium 2.9 mmol/L (3.5-5.1); Reactive Lymphocytes 7 % (0-10); Reflex for Review?? NO; Schistocytes SLIGHT = 2-5 cells (100X) (0-1/hpf); Tear Drops SLIGHT = 2-5 cells (100X) (0-1/hpf)
--- NOTE | 2020-05-22 23:08 | RAD ---
EXAM: CHEST ONE VIEW HISTORY: Chest pain. Right-sided numbness and weakness for 2 days. COMPARISON: 03/20/2020 FINDINGS: Right-sided Mediport catheter remains in place. Cardiac silhouette is magnified by projection. Diffus e increased interstitial opacities are seen throughout the lungs bilaterally most suggestive of chronic interstitial fibrotic lung changes. These interstitial opacities were also seen on study of 1 12/29/2018. No pleural fluid is appreciated. Osteopenia is noted. Remote right-sided rib fractures are again seen. IMPRESSION: Chronic interstitial fibrotic lung changes.
[2020-05-23] MEDS ORDERED: Dextrose 50% Abboject 50 ML SYRINGE SLOW IVP PRN (01:34)
[2020-05-23] MEDS ORDERED: Ondansetron PF 4 MG/2 ML Vial IVP PRN (01:34)
[2020-05-23] MEDS ORDERED: Acetaminophen/Codeine 30-300mg Tablet PO PRN (01:34)
[2020-05-23] MEDS ORDERED: Dextrose 5% in Water 1,000 ML IV PRN (01:34)
[2020-05-23] MEDS ORDERED: HumaLOG 300 UNITS/3 ML VIAL SC PRN ×2 (01:34)
[2020-05-23] MEDS ORDERED: Ondansetron ODT 4 MG TAB PO PRN (01:34)
--- NOTE | 2020-05-23 01:36 | HP ---
PRIMARY CARE PROVIDER: [place], [place]. CHIEF COMPLAINT: Right-sided weakness and abdominal pain. HISTORY OF PRESENT ILLNESS: This is a 49-year-old male, with a significant history of diffuse histiocytosis with current chemotherapy, followed by Dr. Smith with Medical Oncology Service, complaining of mild right-sided weakness as well as right abdominal pain and general malaise over the last two days. Patient states he underwent his last chemotherapy treatment approximately 1 week prior to this evaluation without difficulty. Patient does admit to some weakness that is chronic of his extremities, but no difficulty with speech, facial droop, recent fall, or travel exposure. Patient's history is significant for the diffuse histiocytosis with lung involvement and does use intermittent albuterol metered-dose inhaler as well as Symbicort. Patient denied any recent change to his chronic medication regimen but was noted febrile in the emergency room up to 100.7 degrees Fahrenheit. Patient was also noted tachycardiac meeting sepsis criteria, receiving IV vancomycin and cefepime after concern for neutropenic sepsis. Patient also received potassium chloride and intravenous normal saline. Chest imaging showed chronic interstitial fibrotic changes and CT imaging of the brain showed no acute intracranial process. PAST MEDICAL HISTORY: 1. Diffuse histiocytosis with current chemotherapy. 2. Chronic nonhealing sacral wound. 3. Diabetes mellitus, type 2. 4. Recurrent neutropenia. PAST SURGICAL HISTORY: 1. Status post colostomy. 2. Status post appendectomy. 3. Status post right foot surgery. 4. Status post chest tube placement in 2016. 5. Status post sacral wound debridement. 6. Status post right chest MediPort placement. CURRENT MEDICATIONS: 1. Symbicort two puffs inhaled b.i.d. 2. Acetaminophen/codeine 300/30 mg one tablet p.o. q.6 hours p.r.n. 3. Potassium chloride 20 mEq p.o. b.i.d. 4. Protonix 20 mg p.o. daily. 5. NovoLog FlexPen 25 units subcutaneously q.a.m. and 15 units at bedtime. 6. Glyburide 20 mg p.o. daily. 7. Regenecare p.r.n. ALLERGIES: NO KNOWN DRUG ALLERGIES. FAMILY HISTORY: Positive for diabetes mellitus. SOCIAL HISTORY: Resides in the [place], [place] area. No current alcohol, tobacco, or illicit drug use. REVIEW OF SYSTEMS: CONSTITUTIONAL: Negative for weight loss or gain, ability to conduct usual activities. SKIN: Negative for rash, itching. EYES: Negative for double vision, pain. ENT/MOUTH: Negative for nose bleeding, neck stiffness, pain, tenderness. CARDIOVASCULAR: Negative for palpitations, dyspnea on exertion, orthopnea. RESPIRATORY: Negative for shortness of breath, wheezing, cough, hemoptysis, fever or night sweats. GASTROINTESTINAL: Negative for poor appetite, abdominal pain, heartburn, nausea, vomiting, constipation, or diarrhea. GENITOURINARY: Negative for urgency, frequency, dysuria, nocturia. MUSCULOSKELETAL: Negative for pain, swelling. NEUROLOGIC/PSYCHIATRIC: Negative for anxiety, depression. ALLERGY/IMMUNOLOGIC: Negative for skin rash, bleeding tendency. Otherwise, negative, except as stated per HPI. PHYSICAL EXAMINATION: VITAL SIGNS: Blood pressure 125/79, pulse 114, respiratory rate 21, temperature 100.7 degrees Fahrenheit, and O2 saturation 95% on room air. GENERAL APPEARANCE: This is a 49-year-old male, alert, responsive, in no acute distress. HEENT: Pupils are equal, round, and reactive to light and accommodation. Extraocular muscles are intact. No scleral icterus. No conjunctival injection. Nares are patent. OP is clear. Teeth in fair repair. NECK: Supple. No cervical adenopathy. No thyromegaly. No carotid bruits. No JVD appreciated. Cervical spine, with full active and passive range of motion. No meningeal signs noted. CHEST: Diminished breath sounds in the bases bilaterally. Occasional expiratory wheeze. CARDIOVASCULAR EXAMINATION: S1, S2 with tachycardia. No murmur, rub, or gallop appreciated. ABDOMEN: Rounded with mild tenderness to palpation diffusely. Positive colostomy in place. No rebound or guarding noted. EXTREMITIES: Warm and dry with fair turgor. No clubbing, cyanosis, or asymmetric edema appreciated. Pulses palpable distally at the dorsalis pedis, posterior tibial, and popliteal arteries bilaterally. Capillary refill less than 2 seconds. NEUROLOGIC: Cranial nerves 2 through 12 are grossly intact. Motor strength 4/5 bilaterally in the upper and lower extremities. No focal deficits appreciated. Diffuse erythematous lesions on the abdomen and shoulder region. PERTINENT LABORATORY AND X-RAY FINDINGS: Sodium 139, potassium 2.9, chloride 104, CO2 of 29, BUN 5, creatinine 0.81, estimated GFR greater than 90. Lactic acid level 1.9, calcium 7.6. LFTs within normal limits. CBC showed a white blood cell count of 1.5, hemoglobin 8.4, hematocrit 25, and platelet count 65 with 77% lymphocytes. CT of the brain without contrast dated 05/22/2020, showed no acute intracranial process. CT angiogram of the [place] dated 05/22/2020, showed right temporooccipital AVM. No high-grade stenosis. Portable chest x-ray dated 05/22/2020, showed chronic interstitial fibrotic changes. CT of the abdomen and pelvis dated 05/22/2020, showed no acute intraabdominal process. ASSESSMENT AND PLAN: 1. Neutropenic sepsis. Patient will be admitted to the Medical Oncology Unit. We will continue cefepime 2 g IV q.8 hours with additional vancomycin 1 g IV q.12 hours. Blood and urine cultures pending. Consult medical oncology service for further evaluation. Continue neutropenic precautions. 2. Diffuse histiocytosis with current chemotherapy. Consult medical oncology service for evaluation. Neutropenic precautions. 3. Hypokalemia. Potassium chloride supplementation 40 mEq b.i.d. Repeat potassium level in the a.m. 4. Diabetes mellitus, type 2. Insulin sliding scale for reflexive coverage. Serial Accu-Cheks before meals and at bedtime. Confirm home diabetic regimen. ADA diet when tolerating p.o. intake. 5. Prophylaxis. SCDs while in bed. Pepcid 20 mg p.o. b.i.d. 6. Code status. Full. Surrogate medical decision maker is patient's daughter. Job ID: [id number]
[2020-05-23] MEDS ORDERED: Potassium Chloride 20 MEQ TAB PO SCH (01:45)
[2020-05-23] MEDS ORDERED: Albuterol Sulfate 2.5 mg/3 ml Neb NEB PRN (02:00)
[2020-05-23 02:41] VITALS: BMI 33.3
[2020-05-23] MEDS: Cefepime 2 GM in Sodium Chloride 0.9% 100 ML IVPB SCH ×3 (04:06→20:15)
[2020-05-23] MEDS: Sodium Chloride 0.9% 1,000 ML IV SCH ×3 (04:06→20:18)
[2020-05-23 04:59] LABS: SARS-CoV-2 NAA Rapid Test Not Detected (NotDetected)
[2020-05-23] MEDS: Vancomycin 1.5 GRAM/300 ML BAG 1.5 GM in Premix Bag 1 BAG IVPB SCH ×2 (06:09→17:19)
[2020-05-23] MEDS: Mometasone 200 MCG/Formoterol 5 MCG 120 PUFF INHALER INH SCH ×2 (07:02→19:25)
[2020-05-23 07:40] LABS: ALT (SGPT) 13 U/L (8-55); AST (SGOT) 21 U/L (5-34); Albumin 2.5 g/dL (3.5-5.0); Alkaline Phosphatase 86 U/L (40-110); Anion Gap 8 mmol/L (10-20); BUN (Urea Nitrogen) 4 mg/dL (8.9-20.6); Bilirubin, Total 0.3 mg/dL (0.2-1.2); Calc. Creatinine Clearance 152 mL/min (70-130); Calcium 7.3 mg/dL (7.8-10.44); Carbon Dioxide 30 mmol/L (22-29); Chloride 110 mmol/L (98-107); Estimated GFR-MDRD Greater than 90; Glucose 106 mg/dL (70-105); Potassium 3.4 mmol/L (3.5-5.1); Protein, Total 5.5 g/dL (6.0-8.3); Sodium 145 mmol/L (136-145)
[2020-05-23 07:43] LABS: Band 2 % (5-11); Hemoglobin 7.6 g/dL (14.0-18.0); Lymphocytes 88 % (21-51); MDiff Complete? YES; Mean Corpuscular HGB CONC 31.5 g/dL (32.0-36.0); Mean Corpuscular Hemoglobin 29.5 pg (27.0-31.0); Mean Corpuscular Volume 93.6 fL (78.0-98.0); Mean Platelet Volume 5.4 fL (7.4-10.4); Neutrophil 10 % (42-75); Platelet Count 59 thou/uL (130-400); Platelet Morphology Comment Appears Decreased; Polychromasia SLIGHT = 2-3 cells (100X) (0-2/hpf); Red Blood Cell (RBC) Count 2.57 mill/uL (4.70-6.10); Schistocytes SLIGHT = 2-5 cells (100X) (0-1/hpf); Tear Drops SLIGHT = 2-5 cells (100X) (0-1/hpf); White Blood Cell (WBC) Count 1.2 thou/uL (4.8-10.8)
[2020-05-23] MEDS: Famotidine 20 MG TAB PO SCH ×2 (07:49→20:15)
[2020-05-23] MEDS: Acetaminophen 500 MG TAB PO PRN ×2 (07:49→17:35)
[2020-05-23] MEDS: Potassium Chloride 20 MEQ TAB PO SCH ×2 (07:50→17:18)
[2020-05-23] MEDS: glyBURIDE 5 MG TAB PO SCH (07:50)
--- NOTE | 2020-05-23 11:38 | PDOC.HOSPP ---
- Subjective Encounter Date: 05/23/20 Encounter Time: 11:00 Subjective: no sob, has been resting well ate his breakfast, no nausea or vomiting - Objective Vital Signs & Weight: Vital Signs (12 hours) Temp Pulse Pulse Pulse Resp BP BP 05/23/20 11:04 98.2 F 96 20 05/23/20 10:33 86 97 92/54 L 83/58 L 05/23/20 09:01 99.6 F 111 H 18 05/23/20 08:00 05/23/20 07:43 99.4 F 99 18 05/23/20 04:00 99.5 F 101 H 18 05/23/20 01:34 05/23/20 01:00 98.9 F 107 H 18 BP BP Pulse Ox 05/23/20 11:04 91/54 L 98 05/23/20 10:33 05/23/20 09:01 93/54 L 94 L 05/23/20 08:00 93 L 05/23/20 07:43 91/55 L 93 L 05/23/20 04:00 101/53 L 99 05/23/20 01:34 100 05/23/20 01:00 111/64 100 Weight Weight 193 lb 12.8 oz Result Diagrams: 05/23/20 06:40 05/23/20 06:40 Hospitalist ROS - Medication Medications: Active Medications Generic Name Dose Route Start Last Admin Trade Name Freq PRN Reason Stop Dose Admin Acetaminophen 1,000 mg 05/23/20 01:34 05/23/20 07:49 Tylenol PO 1,000 mg Q6H PRN Administration Mild Pain (1-3) Famotidine 20 mg 05/23/20 09:00 05/23/20 07:49 Pepcid PO 20 mg BID SNEHAL Administration Glyburide 5 mg 05/23/20 09:00 05/23/20 07:50 Diabeta PO 5 mg DAILY SNEHAL Administration Cefepime HCl 2 gm/ Sodium 100 mls @ 200 mls/hr 05/23/20 04:00 05/23/20 04:06 Chloride IVPB 100 mls 0400,1200,2000 SNEHAL Administration Sodium Chloride 1,000 mls @ 100 mls/hr 05/23/20 01:34 05/23/20 04:06 Normal Saline 0.9% IV 1,000 mls .Q10H SNEHAL Administration Vancomycin HCl 1.5 gm/ Device 300 mls @ 200 mls/hr 05/23/20 06:00 05/23/20 06 :09 IVPB 300 mls 0600,1800 SNEHAL Administration Mometasone Furoate/Formoterol Fumar 2 puff 05/23/20 06:30 05/23/20 07:02 Dulera 200 Mcg/5 Mcg Inhaler INH 2 puff BID-RT SNEHAL Administration Potassium Chloride 40 meq 05/23/20 08:00 05/23/20 07:50 K-Dur PO 40 meq BID-WM SNEHAL Administration Tbo-Filgrastim 480 mcg 05/23/20 10:15 05/23/20 11:07 Granix SC 05/23/20 14:00 480 mcg NOW SNEHAL Administration - Exam General Appearance: awake alert Eye: PERRL, anicteric sclera ENT: no oropharyngeal lesions, moist mucosa Neck: supple, no JVD Heart: RRR, no murmur Respiratory: no wheezes, no rales Gastrointestinal: soft, non-tender, non-distended, normal bowel sounds Extremities: no cyanosis, 2+ LE edema Neurological: cranial nerve grossly intact, no focal deficits Psychiatric: normal affect, A&O x 3 Hosp A/P (1) Neutropenic sepsis Code(s): A41.9 - SEPSIS, UNSPECIFIED ORGANISM; D70.9 - NEUTROPENIA, UNSPECIFIED Status: Acute (2) Asthma Code(s): J45.909 - UNSPECIFIED ASTHMA, UNCOMPLICATED Status: Chronic Qualifiers: Asthma severity: mild Asthma persistence: intermittent Asthma complication type: uncomplicated Qualified Code(s): J45.20 - Mild intermittent asthma, uncomplicated (3) Diabetes mellitus Code(s): E11.9 - TYPE 2 DIABETES MELLITUS WITHOUT COMPLICATIONS Status: Chronic Qualifiers: Diabetes mellitus type: type 2 Diabetes mellitus fdc insulin use: without watcher [employer] use (4) HTN (hypertension) Code(s): I10 - ESSENTIAL (PRIMARY) HYPERTENSION Status: Chronic Qualifiers: (5) Langerhans cell histiocytoses Code(s): C96.6 - UNIFOCAL LANGERHANS-CELL HISTIOCYTOSIS Status: Chronic (6) Obesity (BMI 30-39.9) Code(s): E66.9 - OBESITY, UNSPECIFIED Status: Chronic (7) Moderate protein malnutrition Code(s): E44.0 - MODERATE PROTEIN-CALORIE MALNUTRITION Status: Chronic (8) Pancytopenia due to chemotherapy Code(s): D61.810 - ANTINEOPLASTIC CHEMOTHERAPY INDUCED PANCYTOPENIA Status: Acute (9) Hypokalemia Code(s): E87.6 - HYPOKALEMIA Status: Acute - Plan await cultures is on vanc and cefepime continue iv fluids his baseline sbp is around 90-110 is getting a dose of granix covid 19 pcr is -ve will f/u
--- NOTE | 2020-05-23 12:45 | CON ---
DATE OF CONSULTATION: REASON FOR CONSULT: Neutropenic fever. HISTORY OF PRESENT ILLNESS: Mr. Marques Cowan is an unfortunate 49-year-old gentleman, who has multifocal langerhans cell histiocytosis and is currently receiving chemotherapy with vinblastine. His last treatment was May 16. He did not receive neulasta with this cycle. He presented to the emergency room with mild right-sided weakness, abdominal pain, general malaise. He had a low-grade fever of 100.7 in the emergency room. His CBC showed a white count of 1.5. He was transferred to this facility for neutropenic fever and further workup for his neurological symptoms. He underwent a CT scan of the brain, abdomen, pelvis, and cheesh-na of [place], all of which showed no acute findings. He was started on empiric antibiotics, seen at bedside. His primary complaint is right hand numbness and tingling. No shortness of breath or abdominal pain. PAST MEDICAL HISTORY: 1. Langerhans cell histiocytosis. 2. Diabetes. 3. Asthma. 4. COPD. PAST SURGICAL HISTORY: 1. Colostomy. 2. Appendectomy. 3. Sacral wound debridement. 4. MediPort placement. 5. Lung biopsy. ALLERGIES: NO KNOWN DRUG ALLERGIES. HOME MEDICATIONS: 1. Glyburide. 2. Insulin. 3. Protonix. 4. Nystatin. 5. Proventil. 6. Potassium. 7. Prednisone. 8. Symbicort. FAMILY HISTORY: Mother had lung cancer. SOCIAL HISTORY: , has 2 children. Lives with his . No alcohol, tobacco, or illicit drug use. REVIEW OF SYSTEMS: Positive for rash, weakness, and right hand numbness, otherwise negative. PHYSICAL EXAMINATION: VITAL SIGNS: Temperature is 99.6, pulse is 111, respiratory rate 18, BP is 93/ 54. He is 94% on 3 L. GENERAL: This is a chronically ill-appearing male, in no acute distress. HEENT: Normocephalic, atraumatic. Pupils are equal and reactive to light. CV: Regular rate and rhythm. He has tachycardia. LUNGS: Clear anterior. ABDOMEN: Soft and nontender. He has a colostomy in the left lower quadrant. EXTREMITIES: No clubbing or cyanosis. SKIN: He has rash on his chest, back and abdomen from histiocytosis. He has a large perineal wound. NEUROLOGIC: Nonfocal. PERTINENT LABORATORY DATA AND X-RAYS: Current WBCs are 1.2, hemoglobin 7.6, hematocrit 24.1, platelet count 59,000. He has 10% neutrophils, 2% bands, 88% lymphocytes. PT is 14.5, INR is 1.1, and PTT is 40. Sodium 145, potassium 3.4, chloride 110, CO2 is 30, BUN is 4, creatinine 0.74, calcium 7.3, bilirubin 0.3, AST is 21, ALT is 13, alkaline phosphatase is 86. Serum total protein 5.5, albumin 2.5, and globulin 3. Urine was negative. COVID negative. Radiology per HPI. ASSESSMENT: 1. Neutropenic fever. 2. Pancytopenia. 3. Histiocytosis, on vinblastine chemotherapy. DISCUSSION: The patient's last treatment was on May 16. He did not receive his Neulasta injection after treatment. We will start Granix today and continue until his ANC is 1. He is on empiric antibiotics. We will continue his home medications. We will hold transfusion until drops closer to 7. His platelet count is 59,000 , but should improve as well over the next several days. I will continue to monitor his CBC. Thank you for the consult. Job ID: [id number] BENJAMIN
[2020-05-24] MEDS: Cefepime 2 GM in Sodium Chloride 0.9% 100 ML IVPB SCH ×3 (04:59→21:11)
[2020-05-24] MEDS: Acetaminophen 500 MG TAB PO PRN ×3 (05:06→23:22)
[2020-05-24 05:38] LABS: Vancomycin, Trough 23.6 ug/mL
[2020-05-24] MEDS: Vancomycin 1.5 GRAM/300 ML BAG 1.5 GM in Premix Bag 1 BAG IVPB SCH (05:51)
[2020-05-24] MEDS: Mometasone 200 MCG/Formoterol 5 MCG 120 PUFF INHALER INH SCH ×2 (07:48→19:45)
[2020-05-24] MEDS: Vancomycin HCl 1.25 GM in Sodium Chloride 0.9% 250 ML 250 ML IVPB SCH ×2 (10:22→23:20)
[2020-05-24] MEDS: Potassium Chloride 20 MEQ TAB PO SCH ×2 (10:24→17:23)
[2020-05-24] MEDS: Famotidine 20 MG TAB PO SCH ×2 (10:24→21:20)
[2020-05-24] MEDS: glyBURIDE 5 MG TAB PO SCH (10:24)
[2020-05-24] MEDS: Sodium Chloride 0.9% 1,000 ML IV SCH ×3 (10:25→23:22)
--- NOTE | 2020-05-24 11:38 | PDOC.HOSPP ---
- Subjective Encounter Date: 05/24/20 Encounter Time: 11:00 Subjective: feels better, says he will walk today no dizziness or nausea or fever no sob - Objective Vital Signs & Weight: Vital Signs (12 hours) Temp Pulse Resp BP Pulse Ox 05/24/20 06:08 98.9 F 98 05/24/20 04:00 101.1 F H 103 H 20 105/58 L 96 05/24/20 00:00 98.6 F 96 18 91/53 L Weight Admit Weight 193 lb 12.8 oz Weight 193 lb 12.8 oz I&O: 05/23/20 05/24/20 05/25/20 06:59 06:59 06:59 Intake Total 3950 Output Total 3950 Balance 0 Result Diagrams: 05/23/20 06:40 05/23/20 06:40 Additional Labs: Accuchecks 05/24/20 05/23/20 05/23/20 08:35 21:00 16:09 POC Glucose 81 123 H 105 05/23/20 11:14 POC Glucose 124 H Hospitalist ROS - Medication Medications: Active Medications Generic Name Dose Route Start Last Admin Trade Name Freq PRN Reason Stop Dose Admin Acetaminophen 1,000 mg 05/23/20 01:34 05/24/20 05:06 Tylenol PO 1,000 mg Q6H PRN Administration Mild Pain (1-3) Famotidine 20 mg 05/23/20 09:00 05/24/20 10:24 Pepcid PO 20 mg BID SNEHAL Administration Glyburide 5 mg 05/23/20 09:00 05/24/20 10:24 Diabeta PO 5 mg DAILY SNEHAL Administration Cefepime HCl 2 gm/ Sodium 100 mls @ 200 mls/hr 05/23/20 04:00 05/24/20 04:59 Chloride IVPB 100 mls 0400,1200,2000 SNEHAL Administration Sodium Chloride 1,000 mls @ 100 mls/hr 05/23/20 01:34 05/24/20 10:25 Normal Saline 0.9% IV 1,000 mls .Q10H SNEHAL Administration Vancomycin HCl 1.25 gm/ Sodium 250 mls @ 166.667 mls/hr 05/24/20 09:00 10:22 Chloride IVPB 250 mls Q12HR SNEHAL Administration Mometasone Furoate/Formoterol Fumar 2 puff 05/23/20 06:30 05/24/20 07:48 Dulera 200 Mcg/5 Mcg Inhaler INH 2 puff BID-RT SNEHAL Administration Potassium Chloride 40 meq 05/23/20 08:00 05/24/20 10:24 K-Dur PO 40 meq BID-WM SNEHAL Administration Sodium Chloride 10 ml 05/23/20 21:00 05/24/20 10:24 Flush - Normal Saline IVF 10 ml Q12HR SNEHAL Administration Tbo-Filgrastim 480 mcg 05/24/20 09:00 05/24/20 10:24 Granix SC 480 mcg DAILY SNEHAL Administration Vitamin A/Vitamin D 0 gm 05/23/20 21:00 05/24/20 10:30 Vitamin A & D Ointment TOP 1 applic Q12HR SNEHAL Administration - Exam General Appearance: awake alert Eye: PERRL, anicteric sclera ENT: no oropharyngeal lesions, moist mucosa Neck: supple, no JVD Heart: RRR, no murmur Respiratory: no wheezes, no rales, rhonchi Gastrointestinal: soft, non-tender, non-distended, normal bowel sounds Extremities: no cyanosis, 1+ LE edema Neurological: cranial nerve grossly intact, no focal deficits Psychiatric: A&O x 3 Hosp A/P (1) Neutropenic sepsis Code(s): A41.9 - SEPSIS, UNSPECIFIED ORGANISM; D70.9 - NEUTROPENIA, UNSPECIFIED Status: Acute (2) Asthma Code(s): J45.909 - UNSPECIFIED ASTHMA, UNCOMPLICATED Status: Chronic Qualifiers: Asthma severity: mild Asthma persistence: intermittent Asthma complication type: uncomplicated Qualified Code(s): J45.20 - Mild intermittent asthma, uncomplicated (3) Diabetes mellitus Code(s): E11.9 - TYPE 2 DIABETES MELLITUS WITHOUT COMPLICATIONS Status: Chronic Qualifiers: Diabetes mellitus type: type 2 Diabetes mellitus mcc insulin use: without intermediate designer use (4) HTN (hypertension) Code(s): I10 - ESSENTIAL (PRIMARY) HYPERTENSION Status: Chronic Qualifiers: (5) Langerhans cell histiocytoses Code(s): C96.6 - UNIFOCAL LANGERHANS-CELL HISTIOCYTOSIS Status: Chronic (6) Obesity (BMI 30-39.9) Code(s): E66.9 - OBESITY, UNSPECIFIED Status: Chronic (7) Moderate protein malnutrition Code(s): E44.0 - MODERATE PROTEIN-CALORIE MALNUTRITION Status: Chronic (8) Pancytopenia due to chemotherapy Code(s): D61.810 - ANTINEOPLASTIC CHEMOTHERAPY INDUCED PANCYTOPENIA Status: Acute (9) Hypokalemia Code(s): E87.6 - HYPOKALEMIA Status: Acute - Plan prelim cultures blood and urine are -ve, no fever is on vanc and cefepime will dc iv fluids his baseline sbp is around 90-110 got a dose of granix 05/23/2020 covid 19 pcr is -ve will f/u likely dc plan in am Needs to walk more
[2020-05-24 11:41] LABS: Hemoglobin 7.8 g/dL (14.0-18.0); Mean Corpuscular HGB CONC 30.5 g/dL (32.0-36.0); Mean Corpuscular Hemoglobin 28.5 pg (27.0-31.0); Mean Corpuscular Volume 93.5 fL (78.0-98.0); Mean Platelet Volume 6.9 fL (7.4-10.4); Platelet Count 47 thou/uL (130-400); RBC Distribution Width 14.6 % (11.5-14.5); Red Blood Cell (RBC) Count 2.72 mill/uL (4.70-6.10)
[2020-05-24 11:57] LABS: Lymphocytes 88 % (21-51); MDiff Complete? YES; Monocytes 4 % (0-10); Neutrophil 8 % (42-75); Ovalocytes SLIGHT = 2-5 cells (100X) (0-1/hpf); Platelet Morphology Comment Appears Decreased; Polychromasia SLIGHT = 2-3 cells (100X) (0-2/hpf)
[2020-05-24 11:59] LABS: Anion Gap 9 mmol/L (10-20); BUN (Urea Nitrogen) 7 mg/dL (8.9-20.6); Calc. Creatinine Clearance 154 mL/min (70-130); Calcium 7.2 mg/dL (7.8-10.44); Carbon Dioxide 24 mmol/L (22-29); Chloride 113 mmol/L (98-107); Estimated GFR-MDRD Greater than 90; Glucose 86 mg/dL (70-105); Potassium 3.3 mmol/L (3.5-5.1); Sodium 143 mmol/L (136-145)
--- NOTE | 2020-05-24 13:49 | PDOC.MOPN ---
Interval History: feels better today, hand no longer hurts. Did have fever last night. No pain. - Vital Signs Vital Signs: Vital Signs (12 hours) Temp Pulse Resp BP BP Pulse Ox 05/24/20 12:00 98.5 F 93 18 84/48 L 100 05/24/20 06:08 98.9 F 98 05/24/20 04:00 101.1 F H 103 H 20 105/58 L 96 Weight Admit Weight 193 lb 12.8 oz Weight 193 lb 12.8 oz - Physical Exam General: Alert Lungs: Clear to auscultation, Normal air movement Cardiovascular: Regular rate, Normal S1, Normal S2, No murmurs, Gallops, Rubs Abdomen: Other Neurological: Normal speech - Labs Result Diagrams: 05/24/20 11:32 05/24/20 11:32 Lab results: Laboratory Results - last 24 hr 05/24/20 11:45: POC Glucose 78 05/24/20 11:32: WBC 1.0 L, RBC 2.72 L, Hgb 7.8 L, Hct 25.4 L, MCV 93.5, MCH 28.5 , MCHC 30.5 L, RDW 14.6 H, Plt Count 47 L, MPV 6.9 L, Neutrophils % (Manual) 8 L , Lymphocytes % (Manual) 88 H, Monocytes % (Manual) 4, Lymphocytes # Not Reportable, Plt Morphology Comment Appears Decreased L, Polychromasia SLIGHT = 2 -3 cells, Ovalocytes SLIGHT = 2-5 cells 05/24/20 11:32: Sodium 143, Potassium 3.3 L, Chloride 113 H, Carbon Dioxide 24, Anion Gap 9 L, BUN 7 L, Creatinine 0.73, Estimated GFR (MDRD) Greater than 90, Glucose 86, Calcium 7.2 L 05/24/20 08:35: POC Glucose 81 05/24/20 05:00: Vancomycin Trough 23.6 05/23/20 21:00: POC Glucose 123 H 05/23/20 16:09: POC Glucose 105 Status: lab reviewed by me A/P - Problem (1) Pancytopenia due to chemotherapy Current Visit: Yes Code(s): D61.810 - ANTINEOPLASTIC CHEMOTHERAPY INDUCED PANCYTOPENIA Status: Acute (2) Febrile neutropenia Current Visit: No Code(s): D70.9 - NEUTROPENIA, UNSPECIFIED; R50.81 - FEVER PRESENTING WITH CONDITIONS CLASSIFIED ELSEWHERE Status: Acute (3) Langerhans cell histiocytoses Current Visit: No Code(s): C96.6 - UNIFOCAL LANGERHANS-CELL HISTIOCYTOSIS Status: Chronic - Plan Plan: 1. fever 101.1 last night, continue abx 2. continue granix 3. home when afebrile 4. follow-up in clinic
[2020-05-25] MEDS: Cefepime 2 GM in Sodium Chloride 0.9% 100 ML IVPB SCH ×3 (04:43→20:56)
[2020-05-25] MEDS ORDERED: Sodium Chloride 0.9% 500 ML IVPB SCH (05:00)
[2020-05-25] MEDS ORDERED: Sodium Chloride 0.9% 500 ML IV SCH (05:00)
[2020-05-25 06:00] LABS: Eosinophils 4 % (0-10); Hemoglobin 9.6 g/dL (14.0-18.0); Hypochromia SLIGHT = 6-15 cells (100X) (0-5/hpf); Lymphocytes 88 % (21-51); MDiff Complete? YES; Mean Corpuscular HGB CONC 30.6 g/dL (32.0-36.0); Mean Corpuscular Hemoglobin 28.5 pg (27.0-31.0); Mean Corpuscular Volume 92.9 fL (78.0-98.0); Mean Platelet Volume 6.3 fL (7.4-10.4); Monocytes 8 % (0-10); Platelet Count 39 thou/uL (130-400); Platelet Morphology Comment Appears Decreased; RBC Distribution Width 14.8 % (11.5-14.5); Red Blood Cell (RBC) Count 3.36 mill/uL (4.70-6.10)
[2020-05-25 06:06] LABS: Anion Gap 9 mmol/L (10-20); BUN (Urea Nitrogen) 6 mg/dL (8.9-20.6); Calc. Creatinine Clearance 163 mL/min (70-130); Calcium 7.4 mg/dL (7.8-10.44); Carbon Dioxide 24 mmol/L (22-29); Chloride 118 mmol/L (98-107); Estimated GFR-MDRD Greater than 90; Potassium 3.3 mmol/L (3.5-5.1); Sodium 148 mmol/L (136-145)
[2020-05-25 06:11] LABS: Glucose 58 mg/dL (70-105)
[2020-05-25 06:15] LABS: Vancomycin, Trough 31.4 ug/mL
[2020-05-25] MEDS: Mometasone 200 MCG/Formoterol 5 MCG 120 PUFF INHALER INH SCH ×2 (06:30→19:23)
[2020-05-25] MEDS: Potassium Chloride 20 MEQ TAB PO SCH ×2 (08:31→18:04)
[2020-05-25] MEDS: Famotidine 20 MG TAB PO SCH ×2 (08:31→20:56)
[2020-05-25] MEDS: Dextrose 5% in Water 1,000 ML IV SCH ×2 (08:32→22:21)
[2020-05-25 08:51] LABS: Vancomycin, Trough 23.5 ug/mL
[2020-05-25] MEDS: Vancomycin 1 GM in Premix Bag 1 BAG IVPB SCH ×2 (10:15→22:16)
[2020-05-25] MEDS: Sodium Chloride 0.9% 1,000 ML IV SCH (10:22)
--- NOTE | 2020-05-25 11:29 | PDOC.HOSPP ---
- Subjective Encounter Date: 05/25/20 Encounter Time: 10:45 Subjective: no nausea or abd pain says he is eating and drinking well, his serum sugar was low is awake and oriented well - Objective Vital Signs & Weight: Vital Signs (12 hours) Temp Pulse Resp BP Pulse Ox 05/25/20 08:28 98.4 F 96 18 92/61 100 05/25/20 05:47 94/57 L 05/25/20 04:00 97.4 F L 84 16 85/50 L 96 05/25/20 01:46 95 05/25/20 00:00 99.3 F 101 H 20 94/55 L 95 Weight Admit Weight 193 lb 12.8 oz Weight 193 lb 12.8 oz I&O: 05/24/20 05/25/20 05/26/20 06:59 06:59 06:59 Intake Total 3950 2350 1950 Output Total 3950 2450 Balance 0 -100 1950 Result Diagrams: 05/25/20 05:12 05/25/20 05:12 Additional Labs: Accuchecks 05/25/20 05/24/20 05/24/20 08:35 20:05 17:33 POC Glucose 94 96 152 H 05/24/20 05/24/20 16:42 11:45 POC Glucose 59 L* 78 Hospitalist ROS - Medication Medications: Active Medications Generic Name Dose Route Start Last Admin Trade Name Freq PRN Reason Stop Dose Admin Acetaminophen 1,000 mg 05/23/20 01:34 05/24/20 23:22 Tylenol PO 1,000 mg Q6H PRN Administration Mild Pain (1-3) Dextrose/Water 25 gm 05/23/20 01:34 05/24/20 17:17 Dextrose 50% SLOW IVP 25 gm PRN PRN Administration Hypoglycemia Famotidine 20 mg 05/23/20 09:00 05/25/20 08:31 Pepcid PO 20 mg BID SNEHAL Administration Cefepime HCl 2 gm/ Sodium 100 mls @ 200 mls/hr 05/23/20 04:00 05/25/20 04:43 Chloride IVPB 100 mls 0400,1200,2000 SNEHAL Administration Dextrose/Water 1,000 mls @ 75 mls/hr 05/25/20 07:30 05/25/20 08:32 D5w IV 05/26/20 10:09 1,000 mls .[id number] SNEHAL Administration Vancomycin HCl 1 gm/ Device 200 mls @ 200 mls/hr 05/25/20 09:00 05/25/20 10: 15 IVPB 200 mls 0900,2100 SNEHAL Administration Mometasone Furoate/Formoterol Fumar 2 puff 05/23/20 06:30 05/25/20 06:30 Dulera 200 Mcg/5 Mcg Inhaler INH 2 puff BID-RT SNEHAL Administration Potassium Chloride 40 meq 05/23/20 08:00 05/25/20 08:31 K-Dur PO 40 meq BID-WM SNEHAL Administration Sodium Chloride 10 ml 05/23/20 21:00 05/25/20 08:31 Flush - Normal Saline IVF 10 ml Q12HR SNEHAL Administration Tbo-Filgrastim 480 mcg 05/24/20 09:00 05/25/20 10:15 Granix SC 480 mcg DAILY SNEHAL Administration Vitamin A/Vitamin D 0 gm 05/23/20 21:00 05/25/20 08:31 Vitamin A & D Ointment TOP 1 applic Q12HR SNEHAL Administration - Exam General Appearance: awake alert Eye: PERRL, anicteric sclera ENT: no oropharyngeal lesions, moist mucosa Neck: supple, no JVD Heart: RRR, no murmur Respiratory: no wheezes, no rales Gastrointestinal: soft, non-tender, non-distended, normal bowel sounds Extremities: no cyanosis, no edema Neurological: cranial nerve grossly intact, no focal deficits Psychiatric: normal affect, A&O x 3 Hosp A/P (1) Neutropenic sepsis Code(s): A41.9 - SEPSIS, UNSPECIFIED ORGANISM; D70.9 - NEUTROPENIA, UNSPECIFIED Status: Acute (2) Asthma Code(s): J45.909 - UNSPECIFIED ASTHMA, UNCOMPLICATED Status: Chronic Qualifiers: Asthma severity: mild Asthma persistence: intermittent Asthma complication type: uncomplicated Qualified Code(s): J45.20 - Mild intermittent asthma, uncomplicated (3) Diabetes mellitus Code(s): E11.9 - TYPE 2 DIABETES MELLITUS WITHOUT COMPLICATIONS Status: Chronic Qualifiers: Diabetes mellitus type: type 2 Diabetes mellitus prison insulin use: without prison use (4) HTN (hypertension) Code(s): I10 - ESSENTIAL (PRIMARY) HYPERTENSION Status: Chronic Qualifiers: (5) Langerhans cell histiocytoses Code(s): C96.6 - UNIFOCAL LANGERHANS-CELL HISTIOCYTOSIS Status: Chronic (6) Obesity (BMI 30-39.9) Code(s): E66.9 - OBESITY, UNSPECIFIED Status: Chronic (7) Moderate protein malnutrition Code(s): E44.0 - MODERATE PROTEIN-CALORIE MALNUTRITION Status: Chronic (8) Pancytopenia due to chemotherapy Code(s): D61.810 - ANTINEOPLASTIC CHEMOTHERAPY INDUCED PANCYTOPENIA Status: Acute (9) Hypokalemia Code(s): E87.6 - HYPOKALEMIA Status: Acute - Plan cultures blood and urine are -ve, slight fever is on vanc and cefepime start D5w his baseline sbp is around 90-110 got a dose of granix 05/23/2020 covid 19 pcr is -ve will f/u likely dc plan in am if stable Needs to walk more dc glyburide
[2020-05-26] MEDS: Cefepime 2 GM in Sodium Chloride 0.9% 100 ML IVPB SCH ×3 (03:43→19:53)
[2020-05-26] MEDS: Mometasone 200 MCG/Formoterol 5 MCG 120 PUFF INHALER INH SCH ×2 (06:10→19:21)
[2020-05-26 06:34] LABS: Eosinophils 2 % (0-10); Hemoglobin 8.1 g/dL (14.0-18.0); Lymphocytes 84 % (21-51); MDiff Complete? YES; Mean Corpuscular HGB CONC 31.6 g/dL (32.0-36.0); Mean Corpuscular Hemoglobin 29.2 pg (27.0-31.0); Mean Corpuscular Volume 92.4 fL (78.0-98.0); Monocytes 13 % (0-10); Neutrophil 1 % (42-75); Platelet Count 70 thou/uL (130-400); Platelet Morphology Comment Appears Decreased; RBC Distribution Width 15.1 % (11.5-14.5); Red Blood Cell (RBC) Count 2.77 mill/uL (4.70-6.10); White Blood Cell (WBC) Count 2.1 thou/uL (4.8-10.8)
[2020-05-26] MEDS: Vancomycin 1 GM in Premix Bag 1 BAG IVPB SCH ×2 (08:40→21:31)
[2020-05-26] MEDS: Famotidine 20 MG TAB PO SCH ×2 (08:41→21:28)
[2020-05-26] MEDS: Potassium Chloride 20 MEQ TAB PO SCH ×2 (08:41→17:54)
[2020-05-26 09:19] LABS: ALT (SGPT) 8 U/L (8-55); AST (SGOT) 9 U/L (5-34); Albumin 2.6 g/dL (3.5-5.0); Alkaline Phosphatase 94 U/L (40-110); Anion Gap 11 mmol/L (10-20); BUN (Urea Nitrogen) 5 mg/dL (8.9-20.6); Bilirubin, Total 0.2 mg/dL (0.2-1.2); Calc. Creatinine Clearance 146 mL/min (70-130); Carbon Dioxide 23 mmol/L (22-29); Chloride 118 mmol/L (98-107); Estimated GFR-MDRD Greater than 90; Globulin 3.2 g/dL (2.4-3.5); Glucose 100 mg/dL (70-105); Potassium 3.6 mmol/L (3.5-5.1); Protein, Total 5.8 g/dL (6.0-8.3); Sodium 148 mmol/L (136-145)
--- NOTE | 2020-05-26 09:52 | PDOC.HOSPP ---
- Subjective Encounter Date: 05/26/20 Encounter Time: 09:15 Subjective: says he is eating and ambulating in the room no fever or sob - Objective Vital Signs & Weight: Vital Signs (12 hours) Temp Pulse Resp BP Pulse Ox 05/26/20 08:00 98.7 F 92 18 95/53 L 93 L 05/26/20 03:50 98.6 F 97 16 101/56 L 92 L 05/26/20 00:45 97 05/25/20 23:48 99.5 F 107 H 16 95/56 L 93 L Weight Admit Weight 193 lb 12.8 oz Weight 193 lb 12.8 oz I&O: 05/25/20 05/26/20 05/27/20 06:59 06:59 06:59 Intake Total 2350 6620 Output Total 2450 2950 Balance -100 3670 Result Diagrams: 05/26/20 06:00 05/26/20 08:45 Additional Labs: Accuchecks 05/26/20 05/25/20 05/25/20 08:09 20:31 17:27 POC Glucose 103 113 H 91 05/25/20 05/25/20 12:57 08:35 POC Glucose 96 94 Hospitalist ROS - Medication Medications: Active Medications Generic Name Dose Route Start Last Admin Trade Name Freq PRN Reason Stop Dose Admin Acetaminophen 1,000 mg 05/23/20 01:34 05/24/20 23:22 Tylenol PO 1,000 mg Q6H PRN Administration Mild Pain (1-3) Dextrose/Water 25 gm 05/23/20 01:34 05/24/20 17:17 Dextrose 50% SLOW IVP 25 gm PRN PRN Administration Hypoglycemia Famotidine 20 mg 05/23/20 09:00 05/26/20 08:41 Pepcid PO 20 mg BID SNEHAL Administration Cefepime HCl 2 gm/ Sodium 100 mls @ 200 mls/hr 05/23/20 04:00 05/26/20 03:43 Chloride IVPB 100 mls 0400,1200,2000 SNEHAL Administration Dextrose/Water 1,000 mls @ 75 mls/hr 05/25/20 07:30 05/25/20 22:21 D5w IV 05/26/20 10:09 1,000 mls .[id number] SNEHAL Administration Vancomycin HCl 1 gm/ Device 200 mls @ 200 mls/hr 05/25/20 09:00 05/26/20 08: 40 IVPB 200 mls 0900,2100 SNEHAL Administration Mometasone Furoate/Formoterol Fumar 2 puff 05/23/20 06:30 05/26/20 06:10 Dulera 200 Mcg/5 Mcg Inhaler INH 2 puff BID-RT SNEHAL Administration Potassium Chloride 40 meq 05/23/20 08:00 05/26/20 08:41 K-Dur PO 40 meq BID-WM SNEHAL Administration Sodium Chloride 10 ml 05/23/20 21:00 05/26/20 08:41 Flush - Normal Saline IVF 10 ml Q12HR SNEHAL Administration Tbo-Filgrastim 480 mcg 05/24/20 09:00 05/25/20 10:15 Granix SC 480 mcg DAILY SNEHAL Administration Vitamin A/Vitamin D 0 gm 05/23/20 21:00 05/26/20 08:41 Vitamin A & D Ointment TOP 1 applic Q12HR SNEHAL Administration - Exam General Appearance: awake alert Eye: PERRL, anicteric sclera ENT: no oropharyngeal lesions, moist mucosa Neck: supple, no JVD Heart: RRR, no murmur Respiratory: no wheezes, no rales Gastrointestinal: soft, non-tender, non-distended, normal bowel sounds Extremities: no cyanosis, no edema Neurological: cranial nerve grossly intact, no focal deficits Psychiatric: normal affect, A&O x 3 Hosp A/P (1) Neutropenic sepsis Code(s): A41.9 - SEPSIS, UNSPECIFIED ORGANISM; D70.9 - NEUTROPENIA, UNSPECIFIED Status: Acute (2) Asthma Code(s): J45.909 - UNSPECIFIED ASTHMA, UNCOMPLICATED Status: Chronic Qualifiers: Asthma severity: mild Asthma persistence: intermittent Asthma complication type: uncomplicated Qualified Code(s): J45.20 - Mild intermittent asthma, uncomplicated (3) Diabetes mellitus Code(s): E11.9 - TYPE 2 DIABETES MELLITUS WITHOUT COMPLICATIONS Status: Chronic Qualifiers: Diabetes mellitus type: type 2 Diabetes mellitus group home insulin use: without group home use (4) HTN (hypertension) Code(s): I10 - ESSENTIAL (PRIMARY) HYPERTENSION Status: Chronic Qualifiers: (5) Langerhans cell histiocytoses Code(s): C96.6 - UNIFOCAL LANGERHANS-CELL HISTIOCYTOSIS Status: Chronic (6) Obesity (BMI 30-39.9) Code(s): E66.9 - OBESITY, UNSPECIFIED Status: Chronic (7) Moderate protein malnutrition Code(s): E44.0 - MODERATE PROTEIN-CALORIE MALNUTRITION Status: Chronic (8) Pancytopenia due to chemotherapy Code(s): D61.810 - ANTINEOPLASTIC CHEMOTHERAPY INDUCED PANCYTOPENIA Status: Acute (9) Hypokalemia Code(s): E87.6 - HYPOKALEMIA Status: Acute - Plan cultures blood and urine are -ve, fever has subsided is on vanc and cefepime continue D5w, sod is still high at 148 his baseline sbp is around 90-110 got a dose of granix 05/23/2020 covid 19 pcr is -ve will f/u likely dc plan in am if stable Needs to walk more
[2020-05-26 20:44] LABS: Vancomycin, Trough 21.1 ug/mL
[2020-05-26] MEDS: Vancomycin HCl 750 MG in Sodium Chloride 0.9% 250 ML 250 ML IVPB SCH (21:27)
[2020-05-27] MEDS: Cefepime 2 GM in Sodium Chloride 0.9% 100 ML IVPB SCH ×2 (03:44→12:05)
[2020-05-27] MEDS: Mometasone 200 MCG/Formoterol 5 MCG 120 PUFF INHALER INH SCH (07:00)
[2020-05-27] MEDS: Famotidine 20 MG TAB PO SCH (08:23)
[2020-05-27] MEDS: Potassium Chloride 20 MEQ TAB PO SCH (08:24)
[2020-05-27] MEDS: Vancomycin HCl 750 MG in Sodium Chloride 0.9% 250 ML 250 ML IVPB SCH (10:36)
[2020-05-27 12:15] VITALS: BP 102/53; TEMP 98.7
--- NOTE | 2020-05-27 18:06 | DIS ---
DATE OF ADMISSION: 05/22/2020 DATE OF DISCHARGE: 05/27/2020 DISCHARGE DISPOSITION: Home. PRIMARY DISCHARGE DIAGNOSES: Neutropenic sepsis, chronic hypernatremia, pancytopenia secondary to chemotherapy, history of Langerhans cell histiocytosis, diabetes mellitus type 2, hypertension, history of asthma, moderate protein malnutrition, obesity. PROCEDURES DONE DURING HOSPITALIZATION: Chest x-ray done showed chronic interstitial fibrotic lung changes. Blood cultures x2, no growth. Urine culture, no growth. White count of 2.1 on 26 of May, H and H of 8 and 25, platelet count 70. BUN 5, creatinine 0.7, serum sodium was 148 on the . Albumin is 2.6. Liver enzymes were within normal limits. COVID-19 PCR done on the 22 of May was negative. DISCHARGE MEDICATIONS: 1. Tylenol No. 3 one tab p.o. q.4 hourly p.r.n. 2. Albuterol inhaler three times daily p.r.n. 3. Symbicort inhaler 160/4.5 mcg 2 puffs twice daily. 4. Protonix 20 mg daily. 5. Levaquin 500 mg p.o. daily for another 5 days. ALLERGIES: NO KNOWN DRUG ALLERGIES. INPATIENT CONSULT: Ms. Cesilia Conrad for Oncology. DISCHARGE PLAN: The patient to follow up with Dr. Morris, his oncologist in 1 week. He also needs to follow up with his primary care physician at [facility] in 1 week. BRIEF COURSE DURING HOSPITALIZATION: The patient initially got admitted on the 22 of May with complaints of weakness and abdominal pain. He also had a temperature of 100 degrees on arrival. The patient had pancytopenia. He is on chemotherapy for histiocytosis. In view of all the above, the patient was admitted to Oncology unit and has had pancultures drawn. He was on cefepime and vancomycin for neutropenic sepsis protocol. The patient had electrolyte abnormalities which were slowly corrected. He was severely dehydrated as well on admission, for which he received IV fluids. At the time of discharge, he is ambulating and eating well. He needs to follow up with Dr. Morris, his oncologist in 1 week. Please note, I have seen and examined the patient on the day of discharge. As the patient responded to cefepime and vancomycin and all his cultures were negative, he was placed on Levaquin for another 5 days. Job ID: [id number]
== END 2020-05-27 13:34 | disposition home or self-care (01) | DRG 871 ==
LOC: ERS 18:49 → ONC 21:23
PROVIDERS: ADMIT Internal Medicine; ATTEND Internal Medicine
DX: A41.9 Sepsis, unspecified organism (principal); D61.810 Antineoplastic chemotherapy induced pancytopenia; E44.0 Moderate protein-calorie malnutrition; C96.6 Unifocal Langerhans-cell histiocytosis; E87.0 Hyperosmolality and hypernatremia; Z20.828 Contact with and (suspected) exposure to other viral communicable diseases; T45.1X5A Adverse effect of antineoplastic and immunosuppressive drugs, initial encounter; I10 Essential (primary) hypertension; E11.9 Type 2 diabetes mellitus without complications; E66.9 Obesity, unspecified; E86.0 Dehydration; R50.81 Fever presenting with conditions classified elsewhere; J45.20 Mild intermittent asthma, uncomplicated; E87.6 Hypokalemia; J44.9 Chronic obstructive pulmonary disease, unspecified; Z90.49 Acquired absence of other specified parts of digestive tract; Z68.33 Body mass index [BMI] 33.0-33.9, adult
CPT/HCPCS: 36415; 36416; 71045; 80048; 80053; 80202; 83605; 85007; 85025; 85027; 86850; 86900; 86901; 87040; 87086; 87635; 96365; 96366; 96367; J0692; J1447; J1642; J3370; J3490; J7030; J7050; U0002; U0003

== ENCOUNTER 2020-05-29 16:11 | Outpatient (CLI) | payer OTHER ==
--- NOTE | 2020-05-29 16:39 | RAD ---
EXAM: Chest 2 views: HISTORY: Shortness of breath COMPARISON: 05/22/2020 FINDINGS: There is a normal-sized cardiomediastinal silhouette. Increased interstitial lung markings are prese nt. A Mediport is seen with its tip in the superior vena cava. There is no evidence of consolidation, mass, or pleural effusion. The bones are unremarkable. IMPRESSION: Stable chronic interstitial lung disease.
== END 2020-05-29 16:12 | disposition home or self-care (01) ==
LOC: BICRAD 16:11
PROVIDERS: ATTEND Nurse Practitioner Acute Care
DX: R06.02 Shortness of breath (principal); J84.9 Interstitial pulmonary disease, unspecified
CPT/HCPCS: 36415; 71046; 80053; 82248; 83615; 84100; 84550

== ENCOUNTER 2020-07-04 09:11 | Day surgery (SDC) | payer OTHER ==
[2020-07-04] MEDS ORDERED: Sodium Chloride 0.9% 20 ML ONE (09:16)
[2020-07-04 09:22] VITALS: BP 130/72; TEMP 98.6
== END 2020-07-04 10:14 | disposition home or self-care (01) ==
LOC: ONC/OP 09:11
PROVIDERS: ATTEND Internal Medicine Hematology & Oncology
DX: Z51.11 Encounter for antineoplastic chemotherapy (principal); C96.0 Multifocal and multisystemic (disseminated) Langerhans-cell histiocytosis; D70.8 Other neutropenia; D50.0 Iron deficiency anemia secondary to blood loss (chronic)
CPT/HCPCS: 36415; 80053; 82248; 83615; 84100; 84550; 96375; 96409; J1642; J2405; J9360

== ENCOUNTER 2020-07-16 09:38 | Emergency (ER) | payer OTHER ==
[2020-07-16] MEDS ORDERED: Morphine 4 MG/ML VIAL ONE (10:49)
[2020-07-16] MEDS ORDERED: Ondansetron PF 4 MG/2 ML Vial ONE (10:49)
[2020-07-16 11:03] LABS: ALT (SGPT) Less than 7 U/L (8-55); AST (SGOT) 9 U/L (5-34); Albumin 3.4 g/dL (3.5-5.0); Alkaline Phosphatase 78 U/L (40-110); Anion Gap 13 mmol/L (10-20); BUN (Urea Nitrogen) 5 mg/dL (8.9-20.6); Bilirubin, Total 0.2 mg/dL (0.2-1.2); Calc. Creatinine Clearance 0 mL/min (70-130); Calcium 8.1 mg/dL (7.8-10.44); Carbon Dioxide 25 mmol/L (22-29); Chloride 102 mmol/L (98-107); Estimated GFR-MDRD Greater than 90; Glucose 99 mg/dL (70-105); Lipase 17 U/L (8-78); Protein, Total 7.4 g/dL (6.0-8.3); Sodium 137 mmol/L (136-145)
[2020-07-16 11:06] LABS: Potassium 2.9 mmol/L (3.5-5.1)
[2020-07-16 11:12] LABS: Hemoglobin 8.4 g/dL (14.0-18.0); Mean Corpuscular HGB CONC 31.3 g/dL (32.0-36.0); Mean Corpuscular Hemoglobin 28.2 pg (27.0-31.0); Mean Corpuscular Volume 90.3 fL (78.0-98.0); Mean Platelet Volume 8.4 fL (7.4-10.4); Platelet Count 261 thou/uL (130-400); RBC Distribution Width 14.8 % (11.5-14.5); Red Blood Cell (RBC) Count 2.97 mill/uL (4.70-6.10); White Blood Cell (WBC) Count 1.6 thou/uL (4.8-10.8)
[2020-07-16 11:38] LABS: Band 2 % (5-11); Eosinophils 2 % (0-10); Lymphocytes 84 % (21-51); MDiff Complete? YES; Monocytes 8 % (0-10); Neutrophil 4 % (42-75); Platelet Morphology Comment Appears Adequate; Polychromasia SLIGHT = 2-3 cells (100X) (0-2/hpf)
[2020-07-16] MEDS ORDERED: Potassium Chloride 20 MEQ TAB ONE (11:51)
[2020-07-16 13:11] LABS: Bilirubin Negative (Negative); Blood, Urine Negative (Negative); Clarity Clear (Clear); Glucose, Urine (Dipstick) Normal (Negative); Ketone, Urine Negative (Negative); Leukocyte Negative Leu/uL (Negative); Nitrite Negative (Negative); Protein, Urine (Dipstick) Negative (Neg-Trace); Specific Gravity, Urine 1.003 (1.002-1.036); Urobilinogen Normal mg/dL (Less than 2); pH, Urine 5.5 (5.0-9.0)
== END 2020-07-16 14:33 | disposition home or self-care (01) ==
LOC: ERS 09:38
DX: R21 Rash and other nonspecific skin eruption (principal); C96.6 Unifocal Langerhans-cell histiocytosis; E11.9 Type 2 diabetes mellitus without complications; J45.909 Unspecified asthma, uncomplicated; Z79.51 Long term (current) use of inhaled steroids
CPT/HCPCS: 36415; 80053; 81003; 83605; 83690; 85025; 87040; 96361; 96374; 96375; J2270; J2405

== ENCOUNTER 2020-07-20 22:40 | Emergency (ER) | payer OTHER ==
[2020-07-20] MEDS ORDERED: HYDROcodone/Acetaminophen 10/325 mg Tablet ONE (23:43)
[2020-07-20] MEDS ORDERED: Ketorolac Tromethamine 30 MG/ML VIAL ONE (23:43)
== END 2020-07-21 00:21 | disposition home or self-care (01) ==
LOC: ERS 22:40
DX: C96.6 Unifocal Langerhans-cell histiocytosis (principal); E11.9 Type 2 diabetes mellitus without complications; J45.909 Unspecified asthma, uncomplicated; Z87.891 Personal history of nicotine dependence; Z79.899 Other long term (current) drug therapy
CPT/HCPCS: 96372; 99282; J1885

== ENCOUNTER 2020-07-25 08:26 | Outpatient (CLI) | payer OTHER ==
--- NOTE | 2020-07-25 11:02 | PET ---
PET SCAN WITH CT ATTENUATION CORRECTION: HISTORY: Multifocal and multisystemic Langerhans cell histiocytosis. Lesions involve the skin, soft tissues, b one and lung. Restaging. COMPARISON: 04/16/2020. TECHNIQUE: PET scan with CT attenuation correction was performed from the base of the brain to the proximal thig hs following the intravenous administration of 10.3 mm of [id number]. FINDINGS: Head and neck: Nonspecific symmetric uptake involving the left and right palatine tonsils is nonspeci fic. Chest: No abnormal FDG avidity in the axilla, mediastinum or lung parenchyma. There are pleural-based lesions which are FDG avid. There is an FDG avid focus along the medial right pleural margin with a maximum SUV of 5.5. Previously, the maximum SUV in this region measured 4.8. There is a hypermetabo lic focus in the posterior right upper lobe pleural margin, with a current maximum SUV of 7.7. Previously, the maximum SUV in this region was 6.6. There is a third FDG avid focus along the posteri or right apical pleural margin. Maximum SUV is 3.9. Redemonstration of an FDG avid focus, paraesophageal in location with a maximum SUV of 5.0. Previously, the maximum SUV was 7.2. CT used for attenuation correction demonstrates stable cystic changes of the lung parenchyma. Stable septal thickening. There is a non-FDG avid focus in the lateral aspect of the left right pleural margin with a maximum S UV of 1.6. Previously, the maximum SUV in this region was 2.2. No abnormal FDG avidity in the left lung. In the left chest/axilla there is interval mild enlargement of the lymph nodes. FDG avidity is below 2.5. The size of the lymph nodes may preclude adequate evaluation. Abdomen and pelvis: No abnormal FDG avidity. CT used for attenuation correction demonstrate a left lo wer quadrant colostomy. Osseous structures: No abnormal FDG localization. IMPRESSION: 1. Mixed response to therapy. Redemonstration of multifocal pleural-based fluorodeoxyglucose avid foc us along the right pleural margin as well as paraesophageal in location. Some of these lesions have decreased fluorodeoxyglucose avidity while others have increased fluorodeoxyglucose avidity. Overall the number of lesions has not increased. 2. Interval enlarged left axillary and chest wall lymph nodes without definite fluorodeoxyglucose av idity. The size of the lymph node limits evaluation. Transcribed Date/Time: 07/25/2020 11:27 AM
== END 2020-07-25 08:27 | disposition home or self-care (01) ==
LOC: PET 08:26
PROVIDERS: ATTEND Internal Medicine Hematology & Oncology
DX: C96.0 Multifocal and multisystemic (disseminated) Langerhans-cell histiocytosis (principal); R59.0 Localized enlarged lymph nodes
CPT/HCPCS: 78815; A9552

== ENCOUNTER 2020-09-09 02:39 | Emergency (ER) | payer OTHER ==
[2020-09-09 03:55] LABS: #Lymphocytes 0.9 thou/uL (1.20-3.40); #Monocytes 0.2 thou/uL (0.11-0.59); #Neutrophils 3.7 thou/uL (1.40-6.50); %Basophils 0.5 % (0.0-1.0); %Eosinophils 0.2 % (0.0-10.0); %Lymphocytes 18.6 % (21.0-51.0); %Neutrophils 75.6 % (42.0-75.0); Hemoglobin 9.4 g/dL (14.0-18.0); Mean Corpuscular Hemoglobin 28.2 pg (27.0-31.0); Mean Corpuscular Volume 88.3 fL (78.0-98.0); Mean Platelet Volume 7.8 fL (7.4-10.4); Platelet Count 234 thou/uL (130-400); RBC Distribution Width 14.4 % (11.5-14.5); Red Blood Cell (RBC) Count 3.32 mill/uL (4.70-6.10); White Blood Cell (WBC) Count 4.8 thou/uL (4.8-10.8)
[2020-09-09 04:17] LABS: ALT (SGPT) Less than 7 U/L (8-55); AST (SGOT) 11 U/L (5-34); Albumin 3.3 g/dL (3.5-5.0); Alkaline Phosphatase 77 U/L (40-110); Anion Gap 13 mmol/L (10-20); BUN (Urea Nitrogen) 9 mg/dL (8.9-20.6); Bilirubin, Total Less than 0.2 mg/dL (0.2-1.2); Calc. Creatinine Clearance 0 mL/min (70-130); Calcium 8.4 mg/dL (7.8-10.44); Carbon Dioxide 27 mmol/L (22-29); Chloride 104 mmol/L (98-107); Estimated GFR-MDRD Greater than 90; Globulin 4.5 g/dL (2.4-3.5); Glucose 219 mg/dL (70-105); Potassium 3.6 mmol/L (3.5-5.1); Protein, Total 7.8 g/dL (6.0-8.3); Sodium 140 mmol/L (136-145)
--- NOTE | 2020-09-09 07:37 | CT ---
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 Patient reports laying in bed when he is woken up by shortness of breath and chest pain. He describes the chest pain is sharp on the left s mikal, deep, worsened with breathing. He also endorses loss of taste and smell over the past week. he d enies any cough, fevers, congestion. Furthermore he denies any abdominal pain, nausea, vomiting, has an ostomy bag, has not had an increase in the amount that he needs to change it. He does have his typ ical rash which she reports has gotten larger over the past few weeks. He has had no chemotherapy sin ce July. TECHNIQUE: Axial CTA images of the chest with intravenous contrast. Three-dimensional MIP/volume rendered reform ations were performed. CONTRAST: With; ISOVUE 370,100mL COMPARISON: None provided. FINDINGS: PULMONARY ARTERIES There is no intraluminal filling defect suspicious for PE. AORTA No thoracic aortic aneurysm or dissection. LUNGS There are innumerable cysts within both lungs, consistent with history of Langerhans' cell histiocyto sis. The largest cyst measures 3 cm within the right lower lobe. 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 No focal consolidations are seen. PLEURAL SPACES No pleural effusion. No pneumothorax. HEART AND MEDIASTINUM No cardiomegaly. No significant pericardial effusion. LYMPH NODES No lymphadenopathy. BONES No focal osseous abnormality or acute fracture. CHEST WALL AND UPPER ABDOMEN There is a 1 cm calcification within the hepatic dome which may represent a calcified granuloma. The re is mild hepatic steatosis. The chest wall is unremarkable. IMPRESSION: 1. No CT evidence of pulmonary embolism. 2. Extensive cystic lung disease with reticular interstitial markings, likely chronic, correlated wi th history of Langerhans' cell histiocytosis. No focal consolidations. Bibasilar scarring noted. ELECTRONICALLY SIGNED BY: Bria Syed MD Sep 09, 2020 6:38:29 AM ENTERTAINMENT MUSICIAN This report is intended for review by the ordering physician only, in accordance of law. If you recei ve this report in error, please call [facility] at [phone]. FINAL REPORT EMERGENT AFTER HOURS CTA OF THE CHEST WITH CONTRAST: COMPARISON: 03/21/2020. FINDINGS/IMPRESSION: I agree with the findings and impression given in the preliminary report per [facility] physici an. 1. No evidence of pulmonary thromboembolism. 2. There are stable chronic interstitial lung disease. The previously seen area of opacity in the r ight lower lobe has resolved and likely represented an area of atelectasis. POS: EAA
--- NOTE | 2020-09-09 07:57 | RAD ---
RADIOGRAPH CHEST 1 VIEW: DATE: 09/09/2020 TIME: 3:47 AM HISTORY: 50-year-old male with chest pain and dyspnea COMPARISON: 05/29/2020 FINDINGS: Diffuse chronic moderate to severe interstitial lung disease. Right subclavian implantable vascular a ccess port. Magnification of the cardiac shadow. No new consolidation. No pneumothorax. No interval change. IMPRESSION: 1. Somewhat severe chronic interstitial lung disease consistent with history of Langerhans' cell hist iocytosis. 2. No acute findings.
[2020-09-09] MEDS ORDERED: Iopamidol 370 76% 100 ML VIAL ONE (09:04)
[2020-09-09 12:50] LABS: SARS-CoV-2 MS2 Positive; SARS-CoV-2 N Gene Negative; SARS-CoV-2 S Gene Negative; SARS-CoV-2 by NAA Not Detected (NotDetected); SARS-CoV-2 orf1ab Negative
== END 2020-09-09 06:50 | disposition home or self-care (01) ==
LOC: ERS 02:39
DX: R06.00 Dyspnea, unspecified (principal); R07.9 Chest pain, unspecified; J98.4 Other disorders of lung; E11.9 Type 2 diabetes mellitus without complications; Z20.828 Contact with and (suspected) exposure to other viral communicable diseases; Z79.899 Other long term (current) drug therapy; Z79.52 Long term (current) use of systemic steroids; J45.909 Unspecified asthma, uncomplicated; Z87.891 Personal history of nicotine dependence
CPT/HCPCS: 71045; 71275; 80053; 84484; 85025; 85379; 87635; 93005; Q9967; U0003

== ENCOUNTER 2020-10-03 08:18 | Outpatient (CLI) | payer OTHER ==
--- NOTE | 2020-10-03 10:37 | PET ---
PET SCAN WITH CT ATTENUATION CORRECTION: COMPARISON: 07/25/2020. HISTORY: Multifocal and multisegment disseminated Langerhans cells histiocytosis. TECHNIQUE: PET scan with CT attenuation correction was performed from the base of the brain to the proximal thig hs following the intravenous initiation of 10.9 mm of [id number]. FINDINGS: Head and neck: No abnormal FDG localization. Chest: Redemonstration of FDG avidity, pleural-based along the medial right pleural margin. Currently, the m aximum SUV is 5.3, previously 5.5. Second pleural-based focus of FDG avidity along the right pleural margin has a maximum SUV of 6.3, previously 7.7. FDG avidity in the right paraesophageal medi astinum with a maximum SUV of 6.0. Previously, the maximum SUV in this region was 5.0.No evidence of FDG avidity in the left or right axilla. CT used for attenuation correction demonstrates essential ly stable left axillary lymph nodes. Largest left axillary lymph node measures 1.1 x 0.6 cm. Abdomen and Pelvis: No abnormal FDG localization. 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 Osseous structures: No abnormal FDG localization. IMPRESSION: There are no new areas of FDG avidity. Overall SUV has slightly decreased at multiple sites which may imply slight response to therapy. Transcribed Date/Time: 10/03/2020 11:02 AM
== END 2020-10-03 08:19 | disposition home or self-care (01) ==
LOC: PET 08:18
PROVIDERS: ATTEND Internal Medicine Hematology & Oncology
DX: C96.0 Multifocal and multisystemic (disseminated) Langerhans-cell histiocytosis (principal)
CPT/HCPCS: 78815; A9552

== ENCOUNTER 2020-12-31 09:07 | Outpatient (CLI) | payer OTHER | END 2020-12-31 09:08 | disposition home or self-care (01) | LOC: PET 09:07 | PROVIDERS: ATTEND Internal Medicine Hematology & Oncology | DX: C96.6 Unifocal Langerhans-cell histiocytosis (principal) | CPT/HCPCS: 78815; A9552 ==

== ENCOUNTER 2021-02-14 23:25 | Inpatient (IN) | payer OTHER ==
[2021-02-15 01:09] VITALS: BMI 32.4
[2021-02-15] MEDS ORDERED: Morphine 2 MG/ML VIAL SLOW IVP SCH (01:30)
[2021-02-15] MEDS ORDERED: Acetaminophen 325 MG TAB PO PRN (03:49)
[2021-02-15 04:17] LABS: #Eosinphils 0.1 thou/uL (0.0-0.7); #Lymphocytes 3.6 thou/uL (1.20-3.40); #Monocytes 0.6 thou/uL (0.11-0.59); #Neutrophils 5.4 thou/uL (1.40-6.50); %Basophils 0.4 % (0.0-1.0); %Eosinophils 0.6 % (0.0-10.0); %Lymphocytes 37.3 % (21.0-51.0); %Monocytes 5.9 % (0.0-10.0); %Neutrophils 55.9 % (42.0-75.0); Hemoglobin 11.9 g/dL (14.0-18.0); Mean Corpuscular HGB CONC 30.7 g/dL (32.0-36.0); Mean Corpuscular Hemoglobin 28.1 pg (27.0-31.0); Mean Corpuscular Volume 91.5 fL (78.0-98.0); Mean Platelet Volume 8.2 fL (7.4-10.4); Platelet Count 161 thou/uL (130-400); RBC Distribution Width 15.2 % (11.5-14.5); Red Blood Cell (RBC) Count 4.22 mill/uL (4.70-6.10); White Blood Cell (WBC) Count 9.7 thou/uL (4.8-10.8)
[2021-02-15] MEDS ORDERED: Dextrose 5% in Water 1,000 ML IV PRN (04:31)
[2021-02-15] MEDS ORDERED: Dextrose 50% Abboject 50 ML SYRINGE SLOW IVP PRN (04:31)
[2021-02-15 04:35] LABS: Anion Gap 14 mmol/L (10-20); BUN (Urea Nitrogen) 12 mg/dL (8.9-20.6); Calc. Creatinine Clearance 128 mL/min (70-130); Calcium 8.7 mg/dL (7.8-10.44); Carbon Dioxide 26 mmol/L (22-29); Chloride 115 mmol/L (98-107); Glucose 147 mg/dL (70-105); Potassium 4.1 mmol/L (3.5-5.1); Sodium 151 mmol/L (136-145)
[2021-02-15] MEDS: Enoxaparin Sodium 40 MG/0.4 ML SYRINGE SC SCH (08:20)
[2021-02-15] MEDS: Dextrose 5% in Water 1,000 ML IV SCH ×2 (08:23→17:55)
[2021-02-15] MEDS ORDERED: Non-Formulary Item 1 EACH (Albuterol Sulfate [Proventil Hfa] 200 PUFF Inh) INH PRN (10:41)
[2021-02-15] MEDS ORDERED: Acetaminophen/Codeine 30-300mg Tablet PO PRN (10:41)
[2021-02-15] MEDS ORDERED: Albuterol 200 PUFF (6.7GM INHALER) INH PRN (10:48)
[2021-02-15] MEDS: HumaLOG 300 UNITS/3 ML VIAL SC PRN ×2 (11:35→21:58)
[2021-02-15] MEDS: Morphine 2 MG/ML VIAL SLOW IVP PRN ×3 (11:51→22:20)
[2021-02-15] MEDS: HYDROcodone/Acetaminophen 5/325 mg Tablet PO PRN ×2 (11:55→17:59)
[2021-02-15] MEDS ORDERED: predniSONE 20 MG TAB PO SCH (12:15)
[2021-02-15 12:29] LABS: SARS-CoV-2 PCR by NAA Not Detected (NotDetected)
[2021-02-15] MEDS ORDERED: Non-Formulary Item 1 EACH (Budesonide-Formoterol [Symbicort 160-4.5] 160 MG/4.5 MG Aer) INH SCH (15:00)
[2021-02-15] MEDS: Mometasone 200 MCG/Formoterol 5 MCG 120 PUFF INHALER INH SCH ×2 (15:21→19:39)
[2021-02-15] MEDS: Piperacillin/Tazobactam 4.5 GM in Sodium Chloride 0.9% 100 ML IVPB SCH (18:04)
[2021-02-15] MEDS ORDERED: Boudreaux's Butt Paste 60 GM TUBE TOP PRN (21:18)
[2021-02-16] MEDS: Piperacillin/Tazobactam 4.5 GM in Sodium Chloride 0.9% 100 ML IVPB SCH ×2 (01:07→09:47)
[2021-02-16] MEDS: Dextrose 5% in Water 1,000 ML IV SCH ×3 (03:09→15:19)
[2021-02-16 03:48] LABS: #Lymphocytes 1.6 thou/uL (1.20-3.40); #Monocytes 0.2 thou/uL (0.11-0.59); #Neutrophils 3.6 thou/uL (1.40-6.50); %Basophils 0.1 % (0.0-1.0); %Eosinophils 0.4 % (0.0-10.0); %Lymphocytes 29.6 % (21.0-51.0); %Monocytes 3.2 % (0.0-10.0); %Neutrophils 66.7 % (42.0-75.0); Hemoglobin 10.3 g/dL (14.0-18.0); Mean Corpuscular HGB CONC 32.2 g/dL (32.0-36.0); Mean Corpuscular Hemoglobin 29.6 pg (27.0-31.0); Mean Corpuscular Volume 91.8 fL (78.0-98.0); Mean Platelet Volume 7.9 fL (7.4-10.4); Platelet Count 137 thou/uL (130-400); RBC Distribution Width 14.5 % (11.5-14.5); Red Blood Cell (RBC) Count 3.49 mill/uL (4.70-6.10); White Blood Cell (WBC) Count 5.5 thou/uL (4.8-10.8)
[2021-02-16 04:03] LABS: Anion Gap 14 mmol/L (10-20); BUN (Urea Nitrogen) 13 mg/dL (8.9-20.6); Calc. Creatinine Clearance 146 mL/min (70-130); Carbon Dioxide 24 mmol/L (22-29); Chloride 103 mmol/L (98-107); Glucose 242 mg/dL (70-105); Potassium 3.6 mmol/L (3.5-5.1); Sodium 137 mmol/L (136-145)
[2021-02-16] MEDS: HumaLOG 300 UNITS/3 ML VIAL SC PRN (05:58)
[2021-02-16] MEDS: Mometasone 200 MCG/Formoterol 5 MCG 120 PUFF INHALER INH SCH ×3 (07:49→19:26)
[2021-02-16] MEDS ORDERED: Non-Formulary Item 1 EACH (Pantoprazole Sodium [Protonix] 20 MG Tablet.Dr) PO SCH (09:00)
[2021-02-16] MEDS: Enoxaparin Sodium 40 MG/0.4 ML SYRINGE SC SCH (09:37)
[2021-02-16] MEDS: predniSONE 20 MG TAB PO SCH (09:37)
[2021-02-16] MEDS: Pantoprazole 40 MG GRANULES PACKET PO SCH (09:37)
[2021-02-16] MEDS: ceFAZolin 1 GM/D5W 1 GM in Premix Bag 1 BAG IVPB SCH ×2 (15:19→22:19)
[2021-02-17] MEDS: Dextrose 5% in Water 1,000 ML IV SCH ×2 (04:19→05:24)
[2021-02-17] MEDS: ceFAZolin 1 GM/D5W 1 GM in Premix Bag 1 BAG IVPB SCH ×3 (05:23→21:09)
[2021-02-17] MEDS: HumaLOG 300 UNITS/3 ML VIAL SC PRN ×3 (05:37→16:33)
[2021-02-17 05:41] LABS: #Eosinphils 0.1 thou/uL (0.0-0.7); #Lymphocytes 2.5 thou/uL (1.20-3.40); #Monocytes 0.3 thou/uL (0.11-0.59); #Neutrophils 3.5 thou/uL (1.40-6.50); %Basophils 0.5 % (0.0-1.0); %Lymphocytes 39.2 % (21.0-51.0); %Monocytes 4.6 % (0.0-10.0); %Neutrophils 54.8 % (42.0-75.0); Hemoglobin 9.7 g/dL (14.0-18.0); Mean Corpuscular HGB CONC 31.7 g/dL (32.0-36.0); Mean Corpuscular Hemoglobin 28.4 pg (27.0-31.0); Mean Corpuscular Volume 89.6 fL (78.0-98.0); Mean Platelet Volume 7.7 fL (7.4-10.4); Platelet Count 142 thou/uL (130-400); RBC Distribution Width 14.1 % (11.5-14.5); Red Blood Cell (RBC) Count 3.43 mill/uL (4.70-6.10); White Blood Cell (WBC) Count 6.3 thou/uL (4.8-10.8)
[2021-02-17 06:01] LABS: ALT (SGPT) 16 U/L (8-55); AST (SGOT) 8 U/L (5-34); Albumin 2.9 g/dL (3.5-5.0); Alkaline Phosphatase 86 U/L (40-110); Anion Gap 11 mmol/L (10-20); BUN (Urea Nitrogen) 12 mg/dL (8.9-20.6); Bilirubin, Total 0.2 mg/dL (0.2-1.2); Calc. Creatinine Clearance 152 mL/min (70-130); Calcium 7.9 mg/dL (7.8-10.44); Carbon Dioxide 25 mmol/L (22-29); Chloride 102 mmol/L (98-107); Globulin 2.8 g/dL (2.4-3.5); Glucose 170 mg/dL (70-105); Protein, Total 5.7 g/dL (6.0-8.3); Sodium 135 mmol/L (136-145)
[2021-02-17] MEDS: Pantoprazole 40 MG GRANULES PACKET PO SCH (07:57)
[2021-02-17] MEDS: predniSONE 20 MG TAB PO SCH (07:59)
[2021-02-17] MEDS: Enoxaparin Sodium 40 MG/0.4 ML SYRINGE SC SCH (07:59)
[2021-02-17] MEDS: Mometasone 200 MCG/Formoterol 5 MCG 120 PUFF INHALER INH SCH ×3 (08:11→19:34)
[2021-02-17] MEDS ORDERED: Potassium Chloride 20 MEQ TAB PO SCH (15:30)
[2021-02-17] MEDS: Nystatin Cream 15 GM TUBE TOP SCH (21:09)
[2021-02-18] MEDS: ceFAZolin 1 GM/D5W 1 GM in Premix Bag 1 BAG IVPB SCH (05:12)
[2021-02-18 05:32] LABS: #Eosinphils 0.1 thou/uL (0.0-0.7); #Lymphocytes 2.4 thou/uL (1.20-3.40); #Monocytes 0.3 thou/uL (0.11-0.59); #Neutrophils 3.3 thou/uL (1.40-6.50); %Basophils 0.1 % (0.0-1.0); %Eosinophils 1.4 % (0.0-10.0); %Lymphocytes 40.3 % (21.0-51.0); %Monocytes 4.2 % (0.0-10.0); %Neutrophils 54.1 % (42.0-75.0); Hemoglobin 10.2 g/dL (14.0-18.0); Mean Corpuscular HGB CONC 31.7 g/dL (32.0-36.0); Mean Corpuscular Hemoglobin 28.6 pg (27.0-31.0); Mean Corpuscular Volume 90.4 fL (78.0-98.0); Mean Platelet Volume 8.6 fL (7.4-10.4); Platelet Count 124 thou/uL (130-400); RBC Distribution Width 14.6 % (11.5-14.5); Red Blood Cell (RBC) Count 3.56 mill/uL (4.70-6.10)
[2021-02-18 05:55] LABS: Anion Gap 11 mmol/L (10-20); BUN (Urea Nitrogen) 11 mg/dL (8.9-20.6); Calc. Creatinine Clearance 165 mL/min (70-130); Carbon Dioxide 25 mmol/L (22-29); Chloride 108 mmol/L (98-107); Glucose 106 mg/dL (70-105); Magnesium 2.2 mg/dL (1.6-2.6); Potassium 4.1 mmol/L (3.5-5.1); Sodium 140 mmol/L (136-145)
[2021-02-18] MEDS: Enoxaparin Sodium 40 MG/0.4 ML SYRINGE SC SCH (08:08)
[2021-02-18] MEDS: Nystatin Cream 15 GM TUBE TOP SCH (08:09)
[2021-02-18] MEDS: predniSONE 20 MG TAB PO SCH (08:09)
[2021-02-18] MEDS: Pantoprazole 40 MG GRANULES PACKET PO SCH (08:09)
[2021-02-18] MEDS: Mometasone 200 MCG/Formoterol 5 MCG 120 PUFF INHALER INH SCH (08:15)
[2021-02-18 09:13] VITALS: BP 102/66; TEMP 97.8
[2021-02-18] MEDS: HumaLOG 300 UNITS/3 ML VIAL SC PRN (11:43)
== END 2021-02-18 14:00 | disposition home or self-care (01) | DRG 394 ==
LOC: ONC 23:25
PROVIDERS: ADMIT Student in an Organized Health Care Education/Training Program; ATTEND Internal Medicine
DX: K94.02 Colostomy infection (principal); E87.0 Hyperosmolality and hypernatremia; C96.6 Unifocal Langerhans-cell histiocytosis; E44.0 Moderate protein-calorie malnutrition; K61.0 Anal abscess; K94.03 Colostomy malfunction; E11.9 Type 2 diabetes mellitus without complications; L98.492 Non-pressure chronic ulcer of skin of other sites with fat layer exposed; E86.0 Dehydration; J44.9 Chronic obstructive pulmonary disease, unspecified; K52.9 Noninfective gastroenteritis and colitis, unspecified; I10 Essential (primary) hypertension; Z20.822 Contact with and (suspected) exposure to COVID-19; Y83.3 Surgical operation with formation of external stoma as the cause of abnormal reaction of the patient, or of later complication, without mention of misadventure at the time of the procedure; Z90.49 Acquired absence of other specified parts of digestive tract; Z87.891 Personal history of nicotine dependence; Z68.32 Body mass index [BMI] 32.0-32.9, adult
CPT/HCPCS: 36415; 36416; 80048; 80053; 83735; 85025; 87635; J0690; J1642; J1650; J1815; J2270; J2543; J3490; J7512; U0003; U0005

== ENCOUNTER 2021-04-02 23:12 | Inpatient (IN) | payer OTHER, SELFPAY ==
[2021-04-03 01:14] VITALS: BMI 36.0
[2021-04-03] MEDS ORDERED: Ondansetron PF 4 MG/2 ML Vial IVP PRN (02:19)
[2021-04-03] MEDS ORDERED: HumaLOG 300 UNITS/3 ML VIAL SC PRN ×2 (02:23)
[2021-04-03] MEDS ORDERED: Dextrose 5% in Water 1,000 ML IV PRN (02:23)
[2021-04-03] MEDS ORDERED: Sodium Chloride 0.9% 1,000 ML IV SCH (02:30)
[2021-04-03] MEDS: Dextrose 50% Abboject 50 ML SYRINGE SLOW IVP PRN ×2 (04:59→21:51)
[2021-04-03 06:39] LABS: #Eosinphils 0.1 thou/uL (0.0-0.7); #Lymphocytes 2.1 thou/uL (1.20-3.40); #Monocytes 0.3 thou/uL (0.11-0.59); #Neutrophils 4.8 thou/uL (1.40-6.50); %Basophils 0.3 % (0.0-1.0); %Lymphocytes 27.7 % (21.0-51.0); %Monocytes 4.6 % (0.0-10.0); %Neutrophils 65.4 % (42.0-75.0); Hemoglobin 11.5 g/dL (14.0-18.0); Mean Corpuscular HGB CONC 30.7 g/dL (32.0-36.0); Mean Corpuscular Hemoglobin 27.8 pg (27.0-31.0); Mean Corpuscular Volume 90.6 fL (78.0-98.0); Mean Platelet Volume 7.5 fL (7.4-10.4); Platelet Count 198 thou/uL (130-400); RBC Distribution Width 15.1 % (11.5-14.5); Red Blood Cell (RBC) Count 4.13 mill/uL (4.70-6.10); White Blood Cell (WBC) Count 7.4 thou/uL (4.8-10.8)
[2021-04-03 07:00] LABS: ALT (SGPT) 31 U/L (8-55); AST (SGOT) 15 U/L (5-34); Albumin 3.3 g/dL (3.5-5.0); Alkaline Phosphatase 115 U/L (40-110); Anion Gap 10 mmol/L (10-20); BUN (Urea Nitrogen) 14 mg/dL (8.9-20.6); Bilirubin, Total 0.3 mg/dL (0.2-1.2); Calc. Creatinine Clearance 156 mL/min (70-130); Calcium 8.3 mg/dL (7.8-10.44); Carbon Dioxide 32 mmol/L (22-29); Chloride 107 mmol/L (98-107); Globulin 3.6 g/dL (2.4-3.5); Glucose 75 mg/dL (70-105); Potassium 3.9 mmol/L (3.5-5.1); Protein, Total 6.9 g/dL (6.0-8.3); Sodium 145 mmol/L (136-145)
[2021-04-03] MEDS ORDERED: Morphine 2 MG/ML VIAL SLOW IVP PRN ×2 (08:51→11:06)
[2021-04-03] MEDS: Nystatin Cream 15 GM TUBE TOP SCH ×2 (09:12→22:06)
[2021-04-03] MEDS ORDERED: Morphine 2 MG/ML VIAL SLOW IVP SCH (11:15)
[2021-04-03] MEDS: Piperacillin/Tazobactam 3.375 GM in Sodium Chloride 0.9% 100 ML IVPB SCH ×2 (11:27→18:23)
[2021-04-03 11:49] LABS: SARS-CoV-2 PCR by NAA Not Detected (NotDetected)
[2021-04-03] MEDS ORDERED: Mometasone 200 MCG/Formoterol 5 MCG 120 PUFF INHALER INH SCH (12:30)
[2021-04-03] MEDS ORDERED: Meropenem 2 GM in Admixture Fee 1 EACH IVPB SCH (14:15)
[2021-04-03] MEDS: Lactated Ringer's 1,000 ML IV SCH (15:32)
[2021-04-03] MEDS: Mometasone 200 MCG/Formoterol 5 MCG 120 PUFF INHALER INH SCH (19:33)
[2021-04-03] MEDS: Enoxaparin Sodium 40 MG/0.4 ML SYRINGE SC SCH (21:51)
[2021-04-04] MEDS: Lactated Ringer's 1,000 ML IV SCH ×2 (00:20→06:26)
[2021-04-04] MEDS: Dextrose 5%-Lactated Ringers 1,000 ML IV SCH ×2 (00:28→15:38)
[2021-04-04] MEDS: Piperacillin/Tazobactam 3.375 GM in Sodium Chloride 0.9% 100 ML IVPB SCH ×3 (00:34→15:38)
[2021-04-04 04:47] LABS: #Eosinphils 0.1 thou/uL (0.0-0.7); #Lymphocytes 1.8 thou/uL (1.20-3.40); #Monocytes 0.4 thou/uL (0.11-0.59); #Neutrophils 3.5 thou/uL (1.40-6.50); %Basophils 0.2 % (0.0-1.0); %Eosinophils 1.7 % (0.0-10.0); %Lymphocytes 31.3 % (21.0-51.0); %Monocytes 6.2 % (0.0-10.0); %Neutrophils 60.5 % (42.0-75.0); Hemoglobin 10.7 g/dL (14.0-18.0); Mean Corpuscular HGB CONC 31.7 g/dL (32.0-36.0); Mean Corpuscular Hemoglobin 29.2 pg (27.0-31.0); Mean Corpuscular Volume 92.3 fL (78.0-98.0); Mean Platelet Volume 7.2 fL (7.4-10.4); Platelet Count 194 thou/uL (130-400); RBC Distribution Width 14.9 % (11.5-14.5); Red Blood Cell (RBC) Count 3.66 mill/uL (4.70-6.10); White Blood Cell (WBC) Count 5.8 thou/uL (4.8-10.8)
[2021-04-04 05:14] LABS: ALT (SGPT) 27 U/L (8-55); AST (SGOT) 17 U/L (5-34); Albumin 3.3 g/dL (3.5-5.0); Alkaline Phosphatase 134 U/L (40-110); Anion Gap 9 mmol/L (10-20); BUN (Urea Nitrogen) 11 mg/dL (8.9-20.6); Bilirubin, Total 0.5 mg/dL (0.2-1.2); Calc. Creatinine Clearance 154 mL/min (70-130); Calcium 8.2 mg/dL (7.8-10.44); Carbon Dioxide 33 mmol/L (22-29); Chloride 110 mmol/L (98-107); Globulin 3.5 g/dL (2.4-3.5); Glucose 88 mg/dL (70-105); Potassium 3.7 mmol/L (3.5-5.1); Protein, Total 6.8 g/dL (6.0-8.3); Sodium 148 mmol/L (136-145)
[2021-04-04] MEDS: Mometasone 200 MCG/Formoterol 5 MCG 120 PUFF INHALER INH SCH ×2 (06:44→19:34)
[2021-04-04] MEDS ORDERED: Lidocaine 1% w/Epinephrine 1:100K 20 ML VIAL ONE (09:24)
[2021-04-04] MEDS ORDERED: Bupivacaine 0.25% HCL 30 ML VIAL ONE (09:24)
[2021-04-04] MEDS ORDERED: Fentanyl 100 MCG/2 ML VIAL ONE (10:53)
[2021-04-04] MEDS ORDERED: Midazolam HCl 2 mg/2 ml Vial ONE (10:53)
[2021-04-04] MEDS ORDERED: Lidocaine 1% PF 5 ML VIAL ONE (11:06)
[2021-04-04] MEDS ORDERED: Succinylcholine 200 MG/10 ml SYRINGE FS ONE (11:06)
[2021-04-04] MEDS ORDERED: Rocuronium Bromide 10 MG/ML (10ML VIAL) ONE (11:06)
[2021-04-04] MEDS ORDERED: PROPOFOL 200 MG/20 ML VIAL ONE (11:06)
[2021-04-04] MEDS ORDERED: Glycopyrrolate 0.2 MG/ML 5 ML SYRINGE ONE (11:06)
[2021-04-04] MEDS ORDERED: Ondansetron PF 4 MG/2 ML Vial ONE (11:06)
[2021-04-04] MEDS ORDERED: Piperacillin/Tazobactam 3.375 GM VIAL ONE (11:30)
[2021-04-04] MEDS ORDERED: Ibuprofen 600 MG TAB PO PRN (13:37)
[2021-04-04] MEDS: Morphine 4 MG/ML VIAL SLOW IVP PRN ×2 (14:45→20:30)
[2021-04-04] MEDS: predniSONE 20 MG TAB PO SCH (15:36)
[2021-04-04] MEDS: Nystatin Cream 15 GM TUBE TOP SCH ×2 (15:36→21:34)
[2021-04-04] MEDS: Ketorolac Tromethamine 30 MG/ML VIAL IVP PRN (15:44)
[2021-04-04] MEDS: D5 1/2 NS w/20 mEq KCL 1,000 ML IV SCH (15:45)
[2021-04-04] MEDS: Enoxaparin Sodium 40 MG/0.4 ML SYRINGE SC SCH (20:30)
[2021-04-04] MEDS: traMADol HCl 50 MG TAB PO PRN (23:57)
[2021-04-05] MEDS: D5 1/2 NS w/20 mEq KCL 1,000 ML IV SCH (00:40)
[2021-04-05] MEDS: Acetaminophen 500 MG TAB PO PRN (02:49)
[2021-04-05] MEDS: Morphine 4 MG/ML VIAL SLOW IVP PRN ×2 (02:50→04:04)
[2021-04-05] MEDS: Ketorolac Tromethamine 30 MG/ML VIAL IVP PRN (04:01)
[2021-04-05 04:44] LABS: #Eosinphils 0.1 thou/uL (0.0-0.7); #Lymphocytes 1.8 thou/uL (1.20-3.40); #Monocytes 0.4 thou/uL (0.11-0.59); %Basophils 0.3 % (0.0-1.0); %Eosinophils 1.1 % (0.0-10.0); %Monocytes 5.7 % (0.0-10.0); %Neutrophils 67.8 % (42.0-75.0); Hemoglobin 10.2 g/dL (14.0-18.0); Mean Corpuscular HGB CONC 30.5 g/dL (32.0-36.0); Mean Corpuscular Hemoglobin 27.8 pg (27.0-31.0); Mean Corpuscular Volume 91.1 fL (78.0-98.0); Mean Platelet Volume 7.5 fL (7.4-10.4); Platelet Count 176 thou/uL (130-400); RBC Distribution Width 14.8 % (11.5-14.5); Red Blood Cell (RBC) Count 3.69 mill/uL (4.70-6.10); White Blood Cell (WBC) Count 7.4 thou/uL (4.8-10.8)
[2021-04-05] MEDS ORDERED: Electrolyte Replacement Protocol 1 EACH FS SCH (08:30)
[2021-04-05] MEDS: Mometasone 200 MCG/Formoterol 5 MCG 120 PUFF INHALER INH SCH ×2 (09:34→19:01)
[2021-04-05] MEDS: traMADol HCl 50 MG TAB PO PRN (09:41)
[2021-04-05] MEDS: predniSONE 20 MG TAB PO SCH (09:41)
[2021-04-05] MEDS: Nystatin Cream 15 GM TUBE TOP SCH ×2 (09:43→20:15)
[2021-04-05] MEDS: Enoxaparin Sodium 40 MG/0.4 ML SYRINGE SC SCH (20:14)
[2021-04-06] MEDS: traMADol HCl 50 MG TAB PO PRN ×2 (00:21→08:56)
[2021-04-06 04:51] LABS: #Eosinphils 0.2 thou/uL (0.0-0.7); #Lymphocytes 1.9 thou/uL (1.20-3.40); #Monocytes 0.3 thou/uL (0.11-0.59); #Neutrophils 4.6 thou/uL (1.40-6.50); %Basophils 0.1 % (0.0-1.0); %Eosinophils 2.3 % (0.0-10.0); %Lymphocytes 27.3 % (21.0-51.0); %Monocytes 4.3 % (0.0-10.0); Hemoglobin 9.8 g/dL (14.0-18.0); Mean Corpuscular HGB CONC 30.9 g/dL (32.0-36.0); Mean Corpuscular Volume 90.6 fL (78.0-98.0); Mean Platelet Volume 7.7 fL (7.4-10.4); Platelet Count 154 thou/uL (130-400); RBC Distribution Width 14.3 % (11.5-14.5); Red Blood Cell (RBC) Count 3.49 mill/uL (4.70-6.10); White Blood Cell (WBC) Count 6.9 thou/uL (4.8-10.8)
[2021-04-06 05:35] LABS: Anion Gap 13 mmol/L (10-20); BUN (Urea Nitrogen) 11 mg/dL (8.9-20.6); Calc. Creatinine Clearance 166 mL/min (70-130); Calcium 8.2 mg/dL (7.8-10.44); Carbon Dioxide 28 mmol/L (22-29); Chloride 105 mmol/L (98-107); Glucose 89 mg/dL (70-105); Magnesium 2.1 mg/dL (1.6-2.6); Potassium 3.6 mmol/L (3.5-5.1); Sodium 142 mmol/L (136-145)
[2021-04-06] MEDS: Mometasone 200 MCG/Formoterol 5 MCG 120 PUFF INHALER INH SCH ×2 (08:05→19:01)
[2021-04-06] MEDS: predniSONE 20 MG TAB PO SCH (08:56)
[2021-04-06] MEDS: Acetaminophen 500 MG TAB PO PRN (08:56)
[2021-04-06] MEDS: Nystatin Cream 15 GM TUBE TOP SCH ×2 (08:56→22:17)
[2021-04-06] MEDS: Ketorolac Tromethamine 30 MG/ML VIAL IVP PRN (10:30)
[2021-04-06] MEDS: Potassium Chloride 20 MEQ TAB PO SCH (17:48)
[2021-04-06] MEDS: Enoxaparin Sodium 40 MG/0.4 ML SYRINGE SC SCH (22:16)
[2021-04-07] MEDS: Mometasone 200 MCG/Formoterol 5 MCG 120 PUFF INHALER INH SCH ×2 (07:35→19:15)
[2021-04-07 08:06] VITALS: BP 127/73; TEMP 98.4
[2021-04-07] MEDS: predniSONE 20 MG TAB PO SCH (09:13)
[2021-04-07] MEDS: Potassium Chloride 20 MEQ TAB PO SCH (09:13)
[2021-04-07] MEDS: Nystatin Cream 15 GM TUBE TOP SCH (09:16)
[2021-04-07] MEDS: Morphine 4 MG/ML VIAL SLOW IVP PRN (12:13)
[2021-04-07] MEDS: Ketorolac Tromethamine 30 MG/ML VIAL IVP PRN (12:15)
[2021-04-07] MEDS ORDERED: Milk Of Magnesia 30 ML UDCUP PO PRN (17:02)
[2021-04-07] MEDS ORDERED: Magnesium Citrate 300 ML BOT PO SCH (17:15)
[2021-04-08] MEDS ORDERED: Polyethylene Glycol 3350 17 GM Packet PO SCH (09:00)
== END 2021-04-07 19:53 | disposition home or self-care (01) | DRG 354 ==
LOC: ONC 23:12 → OBSVTOIN 23:12
PROVIDERS: ADMIT Internal Medicine; ATTEND Internal Medicine
PROC: 0WUF4JZ Supplement Abdominal Wall with Synthetic Substitute, Percutaneous Endoscopic Approach (ICD-10-PCS; principal; 2021-04-04)
PROC: 8E0W4CZ Robotic Assisted Procedure of Trunk Region, Percutaneous Endoscopic Approach (ICD-10-PCS; 2021-04-04)
DX: K43.3 Parastomal hernia with obstruction, without gangrene (principal); J98.11 Atelectasis; C96.6 Unifocal Langerhans-cell histiocytosis; Z20.822 Contact with and (suspected) exposure to COVID-19; R50.82 Postprocedural fever; E11.649 Type 2 diabetes mellitus with hypoglycemia without coma; E87.6 Hypokalemia; E66.9 Obesity, unspecified; J45.30 Mild persistent asthma, uncomplicated; D64.9 Anemia, unspecified; J44.9 Chronic obstructive pulmonary disease, unspecified; Z93.3 Colostomy status; Z68.36 Body mass index [BMI] 36.0-36.9, adult; Z90.49 Acquired absence of other specified parts of digestive tract; Z79.899 Other long term (current) drug therapy; Z79.51 Long term (current) use of inhaled steroids; Z79.52 Long term (current) use of systemic steroids; Z79.84 Long term (current) use of oral hypoglycemic drugs; Z87.891 Personal history of nicotine dependence; Z79.82 Long term (current) use of aspirin
CPT/HCPCS: 36415; 36416; 74018; 74019; 74022; 80048; 80053; 83735; 85025; C1781; J1650; J1885; J2250; J2270; J2405; J2543; J2704; J3010; J3480; J3490; J7512; S0020; U0003; U0005

== ENCOUNTER 2021-04-12 16:25 | Inpatient (IN) | payer OTHER ==
[2021-04-12] MEDS ORDERED: Acetaminophen 325 MG TAB PO PRN (20:10)
[2021-04-12] MEDS ORDERED: Ondansetron PF 4 MG/2 ML Vial IVP PRN (20:10)
[2021-04-12] MEDS ORDERED: Sodium Chloride 0.9% 1,000 ML IV SCH (20:15)
[2021-04-12] MEDS ORDERED: Dextrose 5% in Water 1,000 ML IV PRN (20:50)
[2021-04-12] MEDS ORDERED: HumaLOG 300 UNITS/3 ML VIAL SC PRN ×2 (20:50)
[2021-04-12] MEDS ORDERED: Dextrose 50% Abboject 50 ML SYRINGE SLOW IVP PRN (20:50)
[2021-04-12] MEDS ORDERED: Bacteriostatic Water 30 ML VIAL FS PRN (21:15)
[2021-04-12] MEDS: Morphine 2 MG/ML VIAL SLOW IVP PRN (22:42)
[2021-04-12] MEDS: Sodium Chloride 0.9% 1,000 ML IV SCH (22:47)
[2021-04-12] MEDS ORDERED: Sodium Chloride 0.9% (PF) 10 ML VIAL FS PRN (23:45)
[2021-04-13] MEDS ORDERED: Cefepime 2 GM in Sodium Chloride 0.9% 100 ML IVPB SCH (01:00)
[2021-04-13] MEDS: Vancomycin 1.5 GRAM/300 ML BAG 1.5 GM in Premix Bag 1 BAG IVPB SCH ×2 (02:02→15:22)
[2021-04-13 02:42] VITALS: BMI 35.2
[2021-04-13 05:21] LABS: #Eosinphils 0.1 thou/uL (0.0-0.7); #Lymphocytes 2.3 thou/uL (1.20-3.40); #Monocytes 0.5 thou/uL (0.11-0.59); #Neutrophils 4.1 thou/uL (1.40-6.50); %Basophils 0.7 % (0.0-1.0); %Eosinophils 1.4 % (0.0-10.0); %Lymphocytes 32.7 % (21.0-51.0); %Neutrophils 58.2 % (42.0-75.0); Hemoglobin 10.1 g/dL (14.0-18.0); Mean Corpuscular HGB CONC 30.3 g/dL (32.0-36.0); Mean Corpuscular Volume 88.9 fL (78.0-98.0); Mean Platelet Volume 7.5 fL (7.4-10.4); Platelet Count 230 thou/uL (130-400); RBC Distribution Width 14.4 % (11.5-14.5); Red Blood Cell (RBC) Count 3.76 mill/uL (4.70-6.10); White Blood Cell (WBC) Count 7.1 thou/uL (4.8-10.8)
[2021-04-13 05:42] LABS: Anion Gap 13 mmol/L (10-20); BUN (Urea Nitrogen) 9 mg/dL (8.9-20.6); Calc. Creatinine Clearance 139 mL/min (70-130); Calcium 8.2 mg/dL (7.8-10.44); Carbon Dioxide 22 mmol/L (22-29); Chloride 113 mmol/L (98-107); Glucose 96 mg/dL (70-105); Potassium 4.2 mmol/L (3.5-5.1); Sodium 144 mmol/L (136-145)
[2021-04-13] MEDS ORDERED: Acetaminophen 650 MG/20.3 ML UDCUP PO PRN (06:00)
[2021-04-13] MEDS: Sodium Chloride 0.9% 1,000 ML IV SCH ×3 (06:05→23:45)
[2021-04-13] MEDS ORDERED: Piperacillin/Tazobactam 4.5 GM in Sodium Chloride 0.9% 100 ML IVPB SCH (09:00)
[2021-04-13 09:10] LABS: SARS-CoV-2 NAA Rapid Test Not Detected (NotDetected)
[2021-04-13] MEDS: Pantoprazole 40 MG VIAL IVP SCH (10:10)
[2021-04-13] MEDS: methylPREDNISolone Sod Succ 40 MG VIAL IVP SCH ×2 (10:10→20:23)
[2021-04-13] MEDS: Piperacillin/Tazobactam 4.5 GM in Sodium Chloride 0.9% 100 ML IVPB SCH ×3 (10:10→23:36)
[2021-04-13] MEDS: Morphine 2 MG/ML VIAL SLOW IVP PRN (18:41)
[2021-04-13] MEDS ORDERED: Lorazepam 2 MG/ML VIAL SLOW IVP PRN (23:11)
[2021-04-14] MEDS: Vancomycin 1.5 GRAM/300 ML BAG 1.5 GM in Premix Bag 1 BAG IVPB SCH (01:26)
[2021-04-14 01:36] LABS: #Lymphocytes 1.3 thou/uL (1.20-3.40); #Monocytes 0.1 thou/uL (0.11-0.59); #Neutrophils 4.9 thou/uL (1.40-6.50); %Eosinophils 0.2 % (0.0-10.0); %Lymphocytes 20.8 % (21.0-51.0); %Monocytes 0.9 % (0.0-10.0); Hemoglobin 10.6 g/dL (14.0-18.0); Mean Corpuscular HGB CONC 32.1 g/dL (32.0-36.0); Mean Corpuscular Hemoglobin 28.7 pg (27.0-31.0); Mean Corpuscular Volume 89.5 fL (78.0-98.0); Mean Platelet Volume 7.6 fL (7.4-10.4); Platelet Count 230 thou/uL (130-400); RBC Distribution Width 14.3 % (11.5-14.5); Red Blood Cell (RBC) Count 3.71 mill/uL (4.70-6.10); White Blood Cell (WBC) Count 6.3 thou/uL (4.8-10.8)
[2021-04-14 01:53] LABS: Vancomycin, Trough 24.5 ug/mL
[2021-04-14 01:59] LABS: Anion Gap 13 mmol/L (10-20); BUN (Urea Nitrogen) 13 mg/dL (8.9-20.6); Calc. Creatinine Clearance 130 mL/min (70-130); Calcium 8.6 mg/dL (7.8-10.44); Carbon Dioxide 20 mmol/L (22-29); Chloride 119 mmol/L (98-107); Glucose 138 mg/dL (70-105); Potassium 3.9 mmol/L (3.5-5.1); Sodium 148 mmol/L (136-145)
[2021-04-14] MEDS: Piperacillin/Tazobactam 4.5 GM in Sodium Chloride 0.9% 100 ML IVPB SCH ×3 (03:45→16:11)
[2021-04-14] MEDS: Sodium Chloride 0.9% 1,000 ML IV SCH (03:47)
[2021-04-14] MEDS: Enoxaparin Sodium 40 MG/0.4 ML SYRINGE SC SCH (08:29)
[2021-04-14] MEDS: Pantoprazole 40 MG VIAL IVP SCH (08:30)
[2021-04-14] MEDS: Dextrose 5 %-0.45 % NaCl 1,000 ML IV SCH ×2 (08:30→23:12)
[2021-04-14] MEDS: methylPREDNISolone Sod Succ 40 MG VIAL IVP SCH ×2 (08:33→23:07)
[2021-04-14] MEDS ORDERED: Vancomycin 1 GM in Premix Bag 1 BAG IVPB SCH (09:00)
[2021-04-14] MEDS: Morphine 2 MG/ML VIAL SLOW IVP PRN ×2 (09:47→13:19)
[2021-04-14] MEDS ORDERED: Ondansetron HCl/PF 4 MG/2 ML Vial IVP PRN ×2 (17:24→21:30)
[2021-04-14] MEDS ORDERED: Meperidine HCl/PF 25 MG/ML VIAL SLOW IVP PRN (17:24)
[2021-04-14] MEDS ORDERED: Promethazine HCl 25 MG/ML VIAL IM PRN (17:24)
[2021-04-14] MEDS ORDERED: Promethazine HCl 25 MG/ML VIAL SLOW IVP PRN (17:24)
[2021-04-14] MEDS ORDERED: Fentanyl 100 MCG/2 ML VIAL ONE ×4 (17:56→21:41)
[2021-04-14] MEDS ORDERED: Glycopyrrolate 0.2 MG/ML 5 ML SYRINGE ONE (18:21)
[2021-04-14] MEDS ORDERED: PROPOFOL 200 MG/20 ML VIAL ONE (18:21)
[2021-04-14] MEDS ORDERED: Lidocaine 1% PF 5 ML VIAL ONE (18:21)
[2021-04-14] MEDS ORDERED: Rocuronium Bromide 10 MG/ML (10ML VIAL) ONE (18:21)
[2021-04-14] MEDS ORDERED: Ondansetron PF 4 MG/2 ML Vial ONE (18:21)
[2021-04-14] MEDS ORDERED: Morphine 4 MG/ML VIAL SLOW IVP PRN (20:16)
[2021-04-14] MEDS ORDERED: Acetaminophen 500 MG TAB PO PRN (20:19)
[2021-04-14] MEDS ORDERED: Lidocaine 1% w/Epinephrine 1:100K 20 ML VIAL ONE (20:47)
[2021-04-14] MEDS ORDERED: Bupivacaine 0.25% HCL 30 ML VIAL ONE (20:47)
[2021-04-14] MEDS ORDERED: Non-Formulary Medication 1 EACH PO PRN (21:17)
[2021-04-14] MEDS ORDERED: Promethazine HCl 25 MG/ML VIAL IM/IV PRN (21:30)
[2021-04-14] MEDS ORDERED: HYDROmorphone 0.5 MG/0.5 ML SYRINGE ONE (21:39)
[2021-04-14] MEDS ORDERED: Ketorolac Tromethamine 30 MG/ML VIAL ONE (21:57)
[2021-04-14] MEDS: Gabapentin 300 MG CAP PO SCH (23:06)
[2021-04-15] MEDS: Morphine 2 MG/ML VIAL SLOW IVP PRN ×2 (00:36→09:55)
[2021-04-15] MEDS: Ketorolac Tromethamine 30 MG/ML VIAL IVP PRN (02:26)
[2021-04-15] MEDS: Simethicone Chewable 80 MG TAB PO PRN (02:56)
[2021-04-15 06:07] LABS: #Lymphocytes 1.1 thou/uL (1.20-3.40); #Monocytes 0.3 thou/uL (0.11-0.59); #Neutrophils 8.9 thou/uL (1.40-6.50); %Basophils 0.1 % (0.0-1.0); %Eosinophils 0.1 % (0.0-10.0); %Lymphocytes 10.7 % (21.0-51.0); %Monocytes 3.2 % (0.0-10.0); Hemoglobin 9.4 g/dL (14.0-18.0); Mean Corpuscular Hemoglobin 27.9 pg (27.0-31.0); Platelet Count 252 thou/uL (130-400); RBC Distribution Width 14.3 % (11.5-14.5); Red Blood Cell (RBC) Count 3.37 mill/uL (4.70-6.10); White Blood Cell (WBC) Count 10.4 thou/uL (4.8-10.8)
[2021-04-15 06:32] LABS: Anion Gap 13 mmol/L (10-20); BUN (Urea Nitrogen) 17 mg/dL (8.9-20.6); Calc. Creatinine Clearance 121 mL/min (70-130); Calcium 7.9 mg/dL (7.8-10.44); Carbon Dioxide 23 mmol/L (22-29); Chloride 117 mmol/L (98-107); Glucose 161 mg/dL (70-105); Potassium 3.6 mmol/L (3.5-5.1); Sodium 149 mmol/L (136-145)
[2021-04-15] MEDS: Pantoprazole 40 MG VIAL IVP SCH (08:28)
[2021-04-15] MEDS: Polyethylene Glycol 3350 17 GM Packet PO SCH (08:28)
[2021-04-15] MEDS: Enoxaparin Sodium 40 MG/0.4 ML SYRINGE SC SCH (08:28)
[2021-04-15] MEDS: Gabapentin 300 MG CAP PO SCH ×3 (08:28→21:32)
[2021-04-15] MEDS: methylPREDNISolone Sod Succ 40 MG VIAL IVP SCH ×2 (08:28→21:33)
[2021-04-15] MEDS: Dextrose 5 %-0.45 % NaCl 1,000 ML IV SCH (08:33)
[2021-04-16] MEDS: Dextrose 5 %-0.45 % NaCl 1,000 ML IV SCH ×2 (00:41→09:47)
[2021-04-16] MEDS ORDERED: predniSONE 20 MG TAB PO SCH (08:00)
[2021-04-16 08:19] LABS: #Lymphocytes 1.3 thou/uL (1.20-3.40); #Monocytes 0.2 thou/uL (0.11-0.59); %Basophils 0.3 % (0.0-1.0); %Eosinophils 0.3 % (0.0-10.0); %Lymphocytes 23.5 % (21.0-51.0); Hemoglobin 8.8 g/dL (14.0-18.0); Mean Corpuscular HGB CONC 31.6 g/dL (32.0-36.0); Mean Corpuscular Hemoglobin 28.4 pg (27.0-31.0); Mean Corpuscular Volume 90.1 fL (78.0-98.0); Mean Platelet Volume 7.3 fL (7.4-10.4); Platelet Count 210 thou/uL (130-400); RBC Distribution Width 14.4 % (11.5-14.5); White Blood Cell (WBC) Count 5.6 thou/uL (4.8-10.8)
[2021-04-16 08:40] LABS: Anion Gap 12 mmol/L (10-20); BUN (Urea Nitrogen) 16 mg/dL (8.9-20.6); Calc. Creatinine Clearance 152 mL/min (70-130); Carbon Dioxide 24 mmol/L (22-29); Chloride 112 mmol/L (98-107); Glucose 167 mg/dL (70-105); Potassium 3.6 mmol/L (3.5-5.1); Sodium 144 mmol/L (136-145)
[2021-04-16] MEDS ORDERED: Lidocaine 4% Topical Sol 50 ML BOT TOP SCH (09:00)
[2021-04-16] MEDS: Gabapentin 300 MG CAP PO SCH ×2 (09:22→14:59)
[2021-04-16] MEDS: Enoxaparin Sodium 40 MG/0.4 ML SYRINGE SC SCH (09:22)
[2021-04-16] MEDS: Polyethylene Glycol 3350 17 GM Packet PO SCH (09:23)
[2021-04-16] MEDS: Morphine 2 MG/ML VIAL SLOW IVP PRN (09:25)
[2021-04-16] MEDS: Simethicone Chewable 80 MG TAB PO PRN (09:25)
[2021-04-16] MEDS: traMADol HCl 50 MG TAB PO PRN ×2 (09:47→14:59)
[2021-04-16] MEDS: Ketorolac Tromethamine 30 MG/ML VIAL IVP PRN (11:33)
[2021-04-16 16:00] VITALS: BP 97/59; TEMP 97.5
[2021-04-17] MEDS ORDERED: LIDOCAINE 4% Topical Sol 4 ML SOLN.PK.G. TP SCH (09:00)
== END 2021-04-16 18:15 | disposition home or self-care (01) | DRG 908 ==
LOC: SURG B 16:25
PROVIDERS: ADMIT Internal Medicine; ATTEND Internal Medicine
PROC: 0W9J3ZX Drainage of Pelvic Cavity, Percutaneous Approach, Diagnostic (ICD-10-PCS; principal; 2021-04-13)
PROC: 0WUF4JZ Supplement Abdominal Wall with Synthetic Substitute, Percutaneous Endoscopic Approach (ICD-10-PCS; 2021-04-14)
PROC: 0DP Gastrointestinal System, Removal (ICD-10-PCS; 2021-04-14)
PROC: 0D9670Z Drainage of Stomach with Drainage Device, Via Natural or Artificial Opening (ICD-10-PCS; 2021-04-14)
PROC: 8E0W4CZ Robotic Assisted Procedure of Trunk Region, Percutaneous Endoscopic Approach (ICD-10-PCS; 2021-04-14)
DX: K91.872 Postprocedural seroma of a digestive system organ or structure following a digestive system procedure (principal); K94.09 Other complications of colostomy; C96.6 Unifocal Langerhans-cell histiocytosis; L03.315 Cellulitis of perineum; L02.211 Cutaneous abscess of abdominal wall; K43.3 Parastomal hernia with obstruction, without gangrene; Z20.822 Contact with and (suspected) exposure to COVID-19; E11.9 Type 2 diabetes mellitus without complications; J44.9 Chronic obstructive pulmonary disease, unspecified; D64.9 Anemia, unspecified; E66.9 Obesity, unspecified; K59.00 Constipation, unspecified; Y83.8 Other surgical procedures as the cause of abnormal reaction of the patient, or of later complication, without mention of misadventure at the time of the procedure; Z93.3 Colostomy status; Z79.84 Long term (current) use of oral hypoglycemic drugs; Z79.51 Long term (current) use of inhaled steroids; Z79.52 Long term (current) use of systemic steroids; Z79.899 Other long term (current) drug therapy; Z90.49 Acquired absence of other specified parts of digestive tract; Z87.891 Personal history of nicotine dependence; Z68.35 Body mass index [BMI] 35.0-35.9, adult
CPT/HCPCS: 36415; 36416; 74018; 76705; 80048; 80202; 85025; 87070; 87077; 87186; 87205; C9113; J0692; J1170; J1650; J1885; J2060; J2270; J2405; J2543; J2704; J2920; J3010; J3370; J3490; J7512; S0020; U0002; U0003; U0005

== ENCOUNTER 2021-04-17 03:17 | Inpatient (IN) | payer OTHER, SELFPAY ==
[2021-04-17] MEDS ORDERED: Ondansetron PF 4 MG/2 ML Vial ONE (03:56)
[2021-04-17] MEDS ORDERED: Fentanyl 100 MCG/2 ML VIAL ONE ×2 (03:56→11:28)
[2021-04-17 04:04] LABS: #Lymphocytes 1.6 thou/uL (1.20-3.40); #Monocytes 0.1 thou/uL (0.11-0.59); #Neutrophils 5.7 thou/uL (1.40-6.50); %Basophils 0.6 % (0.0-1.0); %Eosinophils 0.4 % (0.0-10.0); %Lymphocytes 21.8 % (21.0-51.0); %Monocytes 1.9 % (0.0-10.0); %Neutrophils 75.3 % (42.0-75.0); Hemoglobin 11.7 g/dL (14.0-18.0); Mean Corpuscular HGB CONC 30.9 g/dL (32.0-36.0); Mean Corpuscular Hemoglobin 27.6 pg (27.0-31.0); Mean Corpuscular Volume 89.5 fL (78.0-98.0); Mean Platelet Volume 6.9 fL (7.4-10.4); Platelet Count 373 thou/uL (130-400); RBC Distribution Width 14.3 % (11.5-14.5); Red Blood Cell (RBC) Count 4.24 mill/uL (4.70-6.10); White Blood Cell (WBC) Count 7.5 thou/uL (4.8-10.8)
[2021-04-17 04:20] LABS: Anion Gap 17 mmol/L (10-20); BUN (Urea Nitrogen) 18 mg/dL (8.9-20.6); Calc. Creatinine Clearance 0 mL/min (70-130); Carbon Dioxide 24 mmol/L (22-29); Chloride 105 mmol/L (98-107); Potassium 3.5 mmol/L (3.5-5.1); Sodium 142 mmol/L (136-145)
[2021-04-17 04:21] LABS: ALT (SGPT) 13 U/L (8-55); AST (SGOT) 16 U/L (5-34); Albumin 3.6 g/dL (3.5-5.0); Alkaline Phosphatase 145 U/L (40-110); Bilirubin, Total 0.3 mg/dL (0.2-1.2); Calcium 8.5 mg/dL (7.8-10.44); Globulin 4.2 g/dL (2.4-3.5); Glucose 84 mg/dL (70-105); Lipase 11 U/L (8-78); Protein, Total 7.8 g/dL (6.0-8.3)
[2021-04-17] MEDS ORDERED: Cefepime 2 GM VIAL ONE (04:50)
[2021-04-17] MEDS ORDERED: Vancomycin 1 GM/200 ML BAG ONE (04:50)
[2021-04-17] MEDS ORDERED: Morphine 4 MG/ML VIAL ONE (05:27)
[2021-04-17 08:01] LABS: Bilirubin Negative (Negative); Blood, Urine Negative (Negative); Clarity Clear (Clear); Glucose, Urine (Dipstick) Normal (Negative); Ketone, Urine Negative (Negative); Leukocyte Negative Leu/uL (Negative); Nitrite Negative (Negative); Protein, Urine (Dipstick) Negative (Neg-Trace); Specific Gravity, Urine 1.024 (1.002-1.036); Urobilinogen Normal mg/dL (Less than 2)
[2021-04-17] MEDS ORDERED: Morphine 4 MG/ML VIAL SLOW IVP PRN ×2 (08:14→09:47)
[2021-04-17] MEDS ORDERED: Ondansetron ODT 4 MG TAB SL PRN (08:15)
[2021-04-17] MEDS ORDERED: Ondansetron PF 4 MG/2 ML Vial IVP PRN (08:15)
[2021-04-17] MEDS ORDERED: Hydrocortisone Sod Succ/PF 100 mg/2 ml Vial IVP SCH (09:45)
[2021-04-17] MEDS ORDERED: hydrALAZINE 20 MG/ML VIAL SLOW IVP PRN (09:47)
[2021-04-17] MEDS ORDERED: Morphine 2 MG/ML VIAL SLOW IVP PRN ×2 (09:47→14:45)
[2021-04-17] MEDS ORDERED: Dextrose 5% in Water 1,000 ML IV PRN (09:47)
[2021-04-17] MEDS ORDERED: Piperacillin/Tazobactam 3.375 GM in Sodium Chloride 0.9% 100 ML IVPB SCH (10:00)
[2021-04-17] MEDS ORDERED: Lactated Ringer's 1,000 ML IV SCH ×5 (10:00→16:45)
[2021-04-17] MEDS ORDERED: Iopamidol-370 76% 500 ML 1 ML ONE (10:06)
[2021-04-17 10:13] LABS: Lactic Acid 5.5 mmol/L (0.5-2.2)
[2021-04-17 10:17] LABS: Hemoglobin 10.2 g/dL (14.0-18.0); Mean Corpuscular HGB CONC 30.7 g/dL (32.0-36.0); Mean Corpuscular Hemoglobin 27.8 pg (27.0-31.0); Mean Corpuscular Volume 90.4 fL (78.0-98.0); Mean Platelet Volume 7.3 fL (7.4-10.4); Platelet Count 218 thou/uL (130-400); RBC Distribution Width 14.4 % (11.5-14.5); Red Blood Cell (RBC) Count 3.67 mill/uL (4.70-6.10); White Blood Cell (WBC) Count 4.7 thou/uL (4.8-10.8)
[2021-04-17 10:35] LABS: Anion Gap 13 mmol/L (10-20); BUN (Urea Nitrogen) 16 mg/dL (8.9-20.6); Calc. Creatinine Clearance 0 mL/min (70-130); Calcium 6.8 mg/dL (7.8-10.44); Carbon Dioxide 17 mmol/L (22-29); Chloride 116 mmol/L (98-107); Glucose 94 mg/dL (70-105); Potassium 3.1 mmol/L (3.5-5.1); Sodium 143 mmol/L (136-145)
[2021-04-17 11:02] LABS: Band 40 % (5-11); Lymphocytes 32 % (21-51); MDiff Complete? YES; Metamyelocyte 1 % (0-0); Monocytes 2 % (0-10); Myelocyte 1 % (0-0); Neutrophil 24 % (42-75); Nucleated RBC 1 % (0); Platelet Morphology Comment Appears Adequate; Polychromasia SLIGHT = 2-3 cells (100X) (0-2/hpf); Vacuoles SLIGHT
[2021-04-17] MEDS: Sodium Chloride 0.9% 1,000 ML IV SCH ×2 (11:17→20:02)
[2021-04-17] MEDS ORDERED: Lidocaine 1% w/Epinephrine 1:100K 20 ML VIAL ONE (11:26)
[2021-04-17] MEDS ORDERED: Bupivacaine 0.25% HCL 30 ML VIAL ONE (11:26)
[2021-04-17] MEDS ORDERED: Phenylephrine 10 MG/ML VIAL ONE ×2 (11:28→12:24)
[2021-04-17] MEDS ORDERED: Albumin 5% 0 ML ONE (11:28)
[2021-04-17] MEDS ORDERED: Famotidine/PF 20 mg/2ml Vial ONE (11:28)
[2021-04-17] MEDS ORDERED: Albumin 5% 500 ML ONE (11:29)
[2021-04-17] MEDS ORDERED: Rocuronium Bromide 10 MG/ML (10ML VIAL) ONE (11:45)
[2021-04-17] MEDS ORDERED: Lidocaine 1% PF 5 ML VIAL ONE (11:45)
[2021-04-17] MEDS ORDERED: Sodium Chloride 0.9% 30 ML ONE (12:13)
[2021-04-17] MEDS ORDERED: Sodium Bicarbonate 2.5 MEQ/5 ML VIAL ONE (12:14)
[2021-04-17] MEDS ORDERED: Sodium Bicarb 50 MEQ/50 ML Abboject 8.4% SYRINGE ONE ×2 (12:14→13:54)
[2021-04-17] MEDS ORDERED: Midazolam HCl 5 mg/5 ml Vial ONE (12:18)
[2021-04-17] MEDS ORDERED: Norepinephrine 8 MG/0.9% NS 250 ML ONE (12:38)
[2021-04-17] MEDS ORDERED: Albumin 5% 250 ML ONE ×2 (12:45→18:44)
[2021-04-17] MEDS ORDERED: Sodium Chloride 0.9% 1,000 ML IV SCH (13:15)
[2021-04-17] MEDS ORDERED: Norepinephrine 8 MG/0.9% NS 250 ML IVPB SCH (13:57)
[2021-04-17] MEDS ORDERED: Ventilator Sedation Protocol 1 EACH FS SCH (14:15)
[2021-04-17] MEDS ORDERED: Phenylephrine 40 MG in Sodium Chloride 0.9% 250 ML 250 ML IVPB SCH (14:15)
[2021-04-17] MEDS ORDERED: Fentanyl CADD 100 ML ONE (14:34)
[2021-04-17 14:44] LABS: Actual Bicarbonate (HCO3a) 20.5 mEq/L (22-28); CO2 Tension 35.3 mmHg (35.0-45.0); Calcium, Ionized (arterial) 0.97 mmol/L (1.12-1.30); Carboxyhemoglobin (COHb) 0.7 gm% (0.0-3.0); Hemoglobin (Hb) 12.1 g/dL (14.0-18.0); Potassium - ABG Lab 2.95 mmol/L (3.70-5.30); pH, Arterial 7.38 (7.35-7.45)
[2021-04-17] MEDS: Fentanyl CADD 100 ML IV SCH (14:45)
[2021-04-17] MEDS ORDERED: Fentanyl BOLUS 250 ML IVPB PRN (14:45)
[2021-04-17] MEDS ORDERED: Propofol BOLUS 1,000 MG/100 ML VIAL IV PRN (14:45)
[2021-04-17 14:46] LABS: Puncture Site Arterial Line
[2021-04-17 14:52] LABS: ALV-art Gradient 150.075 mmHg (0-20)
[2021-04-17] MEDS ORDERED: Albumin 25% 25 GM/100 ML BOT IVPB SCH ×2 (15:15→21:00)
[2021-04-17] MEDS: Piperacillin/Tazobactam 4.5 GM in Sodium Chloride 0.9% 100 ML IVPB SCH ×2 (16:17→23:28)
[2021-04-17] MEDS: Hydrocortisone Sod Succ/PF 100 mg/2 ml Vial IVP SCH ×2 (17:46→23:27)
[2021-04-17] MEDS: Lactated Ringer's 1,000 ML IV SCH ×2 (18:08→20:10)
[2021-04-17 18:28] LABS: Anion Gap 14 mmol/L (10-20); BUN (Urea Nitrogen) 16 mg/dL (8.9-20.6); Calc. Creatinine Clearance 0 mL/min (70-130); Calcium 6.8 mg/dL (7.8-10.44); Carbon Dioxide 19 mmol/L (22-29); Chloride 114 mmol/L (98-107); Glucose 147 mg/dL (70-105); Potassium 3.1 mmol/L (3.5-5.1); Sodium 144 mmol/L (136-145)
[2021-04-17 18:33] LABS: Band 72 % (5-11); Hemoglobin 10.8 g/dL (14.0-18.0); Lymphocytes 6 % (21-51); MDiff Complete? YES; Mean Corpuscular HGB CONC 32.2 g/dL (32.0-36.0); Mean Corpuscular Volume 89.8 fL (78.0-98.0); Mean Platelet Volume 7.1 fL (7.4-10.4); Metamyelocyte 3 % (0-0); Monocytes 6 % (0-10); Myelocyte 1 % (0-0); Neutrophil 12 % (42-75); Platelet Count 277 thou/uL (130-400); Platelet Morphology Comment Appears Adequate; Polychromasia SLIGHT = 2-3 cells (100X) (0-2/hpf); RBC Distribution Width 14.3 % (11.5-14.5); Red Blood Cell (RBC) Count 3.72 mill/uL (4.70-6.10); Tear Drops SLIGHT = 2-5 cells (100X) (0-1/hpf); White Blood Cell (WBC) Count 15.4 thou/uL (4.8-10.8)
[2021-04-17] MEDS ORDERED: Vasopressin 20 UNIT, Admixture Fee 1 EACH in Sodium Chloride 0.9% 50 ML IV SCH (18:45)
[2021-04-17] MEDS: Phenylephrine 40 MG/NS 250 ML 40 MG in Premix Bag 1 BAG IVPB SCH (21:53)
[2021-04-17] MEDS: metroNIDAZOLE 500 MG in Premix Bag 1 BAG IVPB SCH (21:53)
[2021-04-18] MEDS: Albumin 25% 25 GM/100 ML BOT IVPB SCH ×4 (00:25→17:46)
[2021-04-18] MEDS: Phenylephrine 40 MG/NS 250 ML 40 MG in Premix Bag 1 BAG IVPB SCH ×3 (01:57→16:18)
[2021-04-18] MEDS: Lactated Ringer's 1,000 ML IV SCH ×2 (03:45→06:09)
[2021-04-18 04:38] LABS: Hemoglobin 10.5 g/dL (14.0-18.0); Mean Corpuscular HGB CONC 32.2 g/dL (32.0-36.0); Mean Corpuscular Hemoglobin 29.2 pg (27.0-31.0); Mean Corpuscular Volume 90.8 fL (78.0-98.0); Mean Platelet Volume 6.9 fL (7.4-10.4); Platelet Count 241 thou/uL (130-400); RBC Distribution Width 14.5 % (11.5-14.5); White Blood Cell (WBC) Count 12.7 thou/uL (4.8-10.8)
[2021-04-18] MEDS ORDERED: diphenhydrAMINE 50 MG/ML VIAL IVP SCH (04:45)
[2021-04-18] MEDS ORDERED: Lactated Ringer's 1,000 ML IV SCH (04:45)
[2021-04-18] MEDS: Piperacillin/Tazobactam 4.5 GM in Sodium Chloride 0.9% 100 ML IVPB SCH ×3 (05:08→16:17)
[2021-04-18 05:28] LABS: Band 53 % (5-11); Lymphocytes 11 % (21-51); MDiff Complete? YES; Metamyelocyte 2 % (0-0); Monocytes 1 % (0-10); Neutrophil 33 % (42-75); Tear Drops SLIGHT = 2-5 cells (100X) (0-1/hpf)
[2021-04-18] MEDS: Hydrocortisone Sod Succ/PF 100 mg/2 ml Vial IVP SCH ×3 (06:00→17:46)
[2021-04-18] MEDS: metroNIDAZOLE 500 MG in Premix Bag 1 BAG IVPB SCH ×3 (06:01→22:32)
[2021-04-18 06:59] LABS: Albumin 3.5 g/dL (3.5-5.0)
[2021-04-18 07:00] LABS: Chloride 121 mmol/L (98-107); Sodium 153 mmol/L (136-145)
[2021-04-18 07:01] LABS: Glucose 209 mg/dL (70-105)
[2021-04-18 07:02] LABS: Globulin 2.2 g/dL (2.4-3.5)
[2021-04-18 07:03] LABS: Anion Gap 13 mmol/L (10-20); Bilirubin, Total 0.7 mg/dL (0.2-1.2); Carbon Dioxide 22 mmol/L (22-29)
[2021-04-18 07:04] LABS: Alkaline Phosphatase 54 U/L (40-110)
[2021-04-18 07:05] LABS: Calc. Creatinine Clearance 123 mL/min (70-130)
[2021-04-18 07:06] LABS: BUN (Urea Nitrogen) 12 mg/dL (8.9-20.6)
[2021-04-18 07:07] LABS: ALT (SGPT) 20 U/L (8-55); AST (SGOT) 17 U/L (5-34)
[2021-04-18] MEDS ORDERED: Fentanyl CADD 100 ML ONE ×2 (07:34→16:01)
[2021-04-18 09:33] LABS: Potassium 2.8 mmol/L (3.5-5.1); Protein, Total 5.7 g/dL (6.0-8.3)
[2021-04-18] MEDS: Enoxaparin Sodium 40 MG/0.4 ML SYRINGE SC SCH (09:48)
[2021-04-18] MEDS: Lorazepam 2 MG/ML VIAL SLOW IVP PRN ×4 (09:51→21:10)
[2021-04-18] MEDS ORDERED: Potassium Chloride 40 MEQ in Sodium Chloride 0.9% 250 ML 250 ML IVPB SCH (10:15)
[2021-04-18] MEDS: Potassium Chloride 40 MEQ in Sodium Chloride 0.45% 1,000 ML IV SCH ×2 (11:09→22:32)
[2021-04-18 12:14] LABS: SARS-CoV-2 PCR by NAA Not Detected (NotDetected)
[2021-04-18] MEDS ORDERED: Sodium Chloride 0.9% (PF) 10 ML VIAL FS PRN (14:15)
[2021-04-18] MEDS ORDERED: Electrolyte Replacement Protocol 1 EACH FS PRN (14:30)
[2021-04-18] MEDS: HumaLOG 300 UNITS/3 ML VIAL SC PRN (17:45)
[2021-04-18] MEDS: Pantoprazole 40 MG VIAL IVP SCH (21:11)
[2021-04-19] MEDS: Albumin 25% 25 GM/100 ML BOT IVPB SCH (00:32)
[2021-04-19] MEDS: Hydrocortisone Sod Succ/PF 100 mg/2 ml Vial IVP SCH ×5 (00:33→23:30)
[2021-04-19] MEDS: Piperacillin/Tazobactam 4.5 GM in Sodium Chloride 0.9% 100 ML IVPB SCH ×5 (00:33→23:30)
[2021-04-19] MEDS: HumaLOG 300 UNITS/3 ML VIAL SC PRN ×5 (00:42→21:13)
[2021-04-19] MEDS: Lorazepam 2 MG/ML VIAL SLOW IVP PRN ×3 (02:04→08:07)
[2021-04-19 04:35] LABS: #Lymphocytes 0.7 thou/uL (1.20-3.40); #Monocytes 0.2 thou/uL (0.11-0.59); #Neutrophils 4.5 thou/uL (1.40-6.50); %Eosinophils 0.1 % (0.0-10.0); %Lymphocytes 12.9 % (21.0-51.0); %Monocytes 2.9 % (0.0-10.0); %Neutrophils 84.1 % (42.0-75.0); Hemoglobin 7.7 g/dL (14.0-18.0); Mean Corpuscular HGB CONC 30.6 g/dL (32.0-36.0); Mean Corpuscular Hemoglobin 27.6 pg (27.0-31.0); Mean Corpuscular Volume 90.2 fL (78.0-98.0); Mean Platelet Volume 7.7 fL (7.4-10.4); Platelet Count 139 thou/uL (130-400); RBC Distribution Width 14.6 % (11.5-14.5); White Blood Cell (WBC) Count 5.4 thou/uL (4.8-10.8)
[2021-04-19 04:43] LABS: Anion Gap 10 mmol/L (10-20); BUN (Urea Nitrogen) 9 mg/dL (8.9-20.6); Calc. Creatinine Clearance 152 mL/min (70-130); Calcium 8.1 mg/dL (7.8-10.44); Carbon Dioxide 26 mmol/L (22-29); Chloride 129 mmol/L (98-107); Glucose 166 mg/dL (70-105); Potassium 2.8 mmol/L (3.5-5.1); Sodium 162 mmol/L (136-145)
[2021-04-19] MEDS ORDERED: Piperacillin/Tazobactam 4.5 GM VIAL ONE (05:18)
[2021-04-19] MEDS: metroNIDAZOLE 500 MG in Premix Bag 1 BAG IVPB SCH ×3 (05:31→21:05)
[2021-04-19] MEDS ORDERED: Fentanyl CADD 100 ML ONE (05:44)
[2021-04-19] MEDS: Fentanyl CADD 100 ML IV SCH (05:50)
[2021-04-19] MEDS: Dextrose 5% in Water 1,000 ML IV SCH (06:04)
[2021-04-19] MEDS: Potassium Chloride 20 MEQ in Premix Bag 1 BAG IVPB SCH ×4 (06:33→11:56)
[2021-04-19] MEDS: Propofol 1,000 MG/100 ML VIAL IV PRN ×3 (08:02→21:45)
[2021-04-19 08:05] LABS: Base Excess (BEa) -0.4 mEq/L (-2.0 to +3.0); CO2 Tension 32.6 mmHg (35.0-45.0); Hemoglobin (Hb) 8.7 g/dL (14.0-18.0); O2 Tension (PaO2), arterial 119.2 mmHg (80.0-100.0); pH, Arterial 7.47 (7.35-7.45)
[2021-04-19 08:06] LABS: Calcium, Ionized (arterial) 1.05 mmol/L (1.12-1.30); Carboxyhemoglobin (COHb) 0.7 gm% (0.0-3.0); Potassium - ABG Lab 2.96 mmol/L (3.70-5.30)
[2021-04-19] MEDS: Enoxaparin Sodium 40 MG/0.4 ML SYRINGE SC SCH (08:08)
[2021-04-19 08:24] LABS: Puncture Site Arterial Line
[2021-04-19 11:41] LABS: INR-International Normal Ratio 1.8; Prothrombin Time 20.6 sec (12.0-14.7)
[2021-04-19 11:42] LABS: PTT 45.1 sec (22.9-36.1)
[2021-04-19 12:02] LABS: ALT (SGPT) 14 U/L (8-55); AST (SGOT) 11 U/L (5-34); Albumin 3.3 g/dL (3.5-5.0); Alkaline Phosphatase 53 U/L (40-110); Anion Gap 14 mmol/L (10-20); BUN (Urea Nitrogen) 10 mg/dL (8.9-20.6); Bilirubin, Total 0.5 mg/dL (0.2-1.2); Calc. Creatinine Clearance 141 mL/min (70-130); Calcium 7.9 mg/dL (7.8-10.44); Carbon Dioxide 22 mmol/L (22-29); Cardiac Risk 5.4 (Less than 4.5); Chloride 129 mmol/L (98-107); Cholesterol 81 mg/dl (< 200 Desired); Globulin 2.1 g/dL (2.4-3.5); Glucose 185 mg/dL (70-105); HDL Cholesterol 15 mg/dL (>60 Neg Risk); LDL Cholesterol, Calculated 47 mg/dL; Magnesium 2.3 mg/dL (1.6-2.6); Phosphorus 1.3 mg/dL (2.3-4.7); Potassium 3.2 mmol/L (3.5-5.1); Protein, Total 5.4 g/dL (6.0-8.3); Sodium 162 mmol/L (136-145); Triglycerides 95 mg/dL (Less than 150)
[2021-04-19] MEDS ORDERED: Potassium Phosphate 30 MMOL in Sodium Chloride 0.9% 500 ML IVPB SCH (12:30)
[2021-04-19 18:38] LABS: #Lymphocytes 0.8 thou/uL (1.20-3.40); #Monocytes 0.1 thou/uL (0.11-0.59); #Neutrophils 3.7 thou/uL (1.40-6.50); %Basophils 0.2 % (0.0-1.0); %Lymphocytes 16.4 % (21.0-51.0); %Monocytes 2.3 % (0.0-10.0); %Neutrophils 80.9 % (42.0-75.0); Hemoglobin 8.1 g/dL (14.0-18.0); Mean Corpuscular HGB CONC 32.1 g/dL (32.0-36.0); Mean Corpuscular Hemoglobin 28.9 pg (27.0-31.0); Mean Corpuscular Volume 90.2 fL (78.0-98.0); RBC Distribution Width 14.6 % (11.5-14.5); Red Blood Cell (RBC) Count 2.81 mill/uL (4.70-6.10); White Blood Cell (WBC) Count 4.6 thou/uL (4.8-10.8)
[2021-04-19 18:55] LABS: Hypochromia SLIGHT = 6-15 cells (100X) (0-5/hpf); MDiff Complete? YES; Platelet Count 115 thou/uL (130-400); Platelet Morphology Comment Appears Decreased; Polychromasia SLIGHT = 2-3 cells (100X) (0-2/hpf); Tear Drops SLIGHT = 2-5 cells (100X) (0-1/hpf)
[2021-04-19 18:57] LABS: Anion Gap 14 mmol/L (10-20); BUN (Urea Nitrogen) 11 mg/dL (8.9-20.6); Calc. Creatinine Clearance 149 mL/min (70-130); Calcium 7.7 mg/dL (7.8-10.44); Carbon Dioxide 21 mmol/L (22-29); Glucose 190 mg/dL (70-105); Sodium 160 mmol/L (136-145)
[2021-04-19 19:04] LABS: Chloride 128 mmol/L (98-107); Phosphorus 2.8 mg/dL (2.3-4.7)
[2021-04-19] MEDS ORDERED: Potassium Chloride 40 MEQ in Premix Bag 1 BAG IVPB SCH (19:15)
[2021-04-19] MEDS: Pantoprazole 40 MG VIAL IVP SCH (20:58)
[2021-04-19] MEDS ORDERED: HUMULIN R IV SCH (22:00)
[2021-04-19] MEDS ORDERED: TRACE ELEMENT IV SCH (22:00)
[2021-04-19] MEDS ORDERED: MULTIVITAMINS IV SCH (22:00)
[2021-04-19] MEDS ORDERED: [UNRECOGNIZED DRUG - OTHER] IV SCH (22:00)
[2021-04-20] MEDS ORDERED: Fentanyl CADD 100 ML ONE (00:18)
[2021-04-20] MEDS: Fentanyl CADD 100 ML IV SCH (00:32)
[2021-04-20] MEDS: HumaLOG 300 UNITS/3 ML VIAL SC PRN ×5 (00:36→20:54)
[2021-04-20 01:11] LABS: Potassium 3.4 mmol/L (3.5-5.1)
[2021-04-20] MEDS ORDERED: Potassium Chloride 40 MEQ in Premix Bag 1 BAG IVPB SCH ×2 (02:00→15:30)
[2021-04-20] MEDS: Dextrose 5% in Water 1,000 ML IV SCH ×2 (02:09→20:52)
[2021-04-20 04:44] LABS: Phosphorus 2.3 mg/dL (2.3-4.7)
[2021-04-20 04:48] LABS: ALT (SGPT) 12 U/L (8-55); AST (SGOT) 6 U/L (5-34); Albumin 3.1 g/dL (3.5-5.0); Alkaline Phosphatase 56 U/L (40-110); Anion Gap 13 mmol/L (10-20); BUN (Urea Nitrogen) 15 mg/dL (8.9-20.6); Bilirubin, Total 0.3 mg/dL (0.2-1.2); Calc. Creatinine Clearance 137 mL/min (70-130); Calcium 7.7 mg/dL (7.8-10.44); Carbon Dioxide 22 mmol/L (22-29); Globulin 2.1 g/dL (2.4-3.5); Glucose 347 mg/dL (70-105); Potassium 3.6 mmol/L (3.5-5.1); Protein, Total 5.2 g/dL (6.0-8.3); Sodium 158 mmol/L (136-145)
[2021-04-20 04:51] LABS: Band 22 % (5-11); Hemoglobin 8.6 g/dL (14.0-18.0); Lymphocytes 10 % (21-51); MDiff Complete? YES; Mean Corpuscular HGB CONC 32.2 g/dL (32.0-36.0); Mean Corpuscular Hemoglobin 29.4 pg (27.0-31.0); Mean Corpuscular Volume 91.4 fL (78.0-98.0); Mean Platelet Volume 8.2 fL (7.4-10.4); Monocytes 1 % (0-10); Neutrophil 67 % (42-75); Platelet Count 112 thou/uL (130-400); Platelet Morphology Comment Appears Decreased; RBC Distribution Width 14.7 % (11.5-14.5); Red Blood Cell (RBC) Count 2.92 mill/uL (4.70-6.10); Tear Drops SLIGHT = 2-5 cells (100X) (0-1/hpf); White Blood Cell (WBC) Count 5.2 thou/uL (4.8-10.8)
[2021-04-20 04:57] LABS: Chloride 127 mmol/L (98-107)
[2021-04-20] MEDS: Piperacillin/Tazobactam 4.5 GM in Sodium Chloride 0.9% 100 ML IVPB SCH ×3 (05:07→17:36)
[2021-04-20] MEDS: Hydrocortisone Sod Succ/PF 100 mg/2 ml Vial IVP SCH ×2 (05:07→20:52)
[2021-04-20] MEDS: metroNIDAZOLE 500 MG in Premix Bag 1 BAG IVPB SCH (05:08)
[2021-04-20] MEDS: Propofol 1,000 MG/100 ML VIAL IV PRN ×3 (05:56→20:53)
[2021-04-20 07:46] LABS: Actual Bicarbonate (HCO3a) 20.3 mEq/L (22-28); Base Excess (BEa) -4.9 mEq/L (-2.0 to +3.0); CO2 Tension 37.7 mmHg (35.0-45.0); Calcium, Ionized (arterial) 1.16 mmol/L (1.12-1.30); Carboxyhemoglobin (COHb) 0.8 gm% (0.0-3.0); Hemoglobin (Hb) 12.2 g/dL (14.0-18.0); Potassium - ABG Lab 3.26 mmol/L (3.70-5.30); pH, Arterial 7.35 (7.35-7.45)
[2021-04-20 08:41] LABS: Puncture Site RBA
[2021-04-20 08:42] LABS: ALV-art Gradient 162.075 mmHg (0-20)
[2021-04-20] MEDS ORDERED: Ketamine 50 MG/ML (10ML VIAL) ONE (09:38)
[2021-04-20] MEDS ORDERED: Fentanyl 100 MCG/2 ML VIAL ONE (09:38)
[2021-04-20] MEDS ORDERED: Phenylephrine 10 MG/ML VIAL ONE (09:47)
[2021-04-20] MEDS: Enoxaparin Sodium 40 MG/0.4 ML SYRINGE SC SCH (10:06)
[2021-04-20] MEDS ORDERED: Rocuronium Bromide 10 MG/ML (10ML VIAL) ONE (11:12)
[2021-04-20] MEDS ORDERED: PHENYLEPHRINE-NS 100 MCG/ML 10 ML SYRINGE ONE (11:12)
[2021-04-20] MEDS ORDERED: VANCOMYCIN 2 GRAM/400 ML BAG 2 GM in Premix Bag 1 BAG IVPB SCH (13:00)
[2021-04-20 14:42] LABS: Platelet Count 135 thou/uL (130-400)
[2021-04-20 14:54] LABS: INR-International Normal Ratio 1.5; Prothrombin Time 18.4 sec (12.0-14.7)
[2021-04-20 14:55] LABS: Fibrinogen 580 mg/dL (253-463); PTT 36.2 sec (22.9-36.1)
[2021-04-20 14:57] LABS: D-Dimer Test 2.45 *mcg/mL (0.27-0.43)
[2021-04-20 15:03] LABS: Anion Gap 14 mmol/L (10-20); BUN (Urea Nitrogen) 16 mg/dL (8.9-20.6); Calc. Creatinine Clearance 151 mL/min (70-130); Calcium 7.6 mg/dL (7.8-10.44); Carbon Dioxide 20 mmol/L (22-29); Glucose 340 mg/dL (70-105); Sodium 159 mmol/L (136-145)
[2021-04-20 15:11] LABS: FSP-Qualitative ABNORMAL (Normal); FSP-Semiquantitative >=5 & <20 mcg/mL (Less than 5)
[2021-04-20 15:16] LABS: Chloride 128 mmol/L (98-107)
[2021-04-20] MEDS: Lantus 1000 UNITS/10 ML VIAL SC SCH (15:47)
[2021-04-20] MEDS: Pantoprazole 40 MG VIAL IVP SCH (20:53)
[2021-04-20 22:28] LABS: Potassium 3.3 mmol/L (3.5-5.1)
[2021-04-20] MEDS: [UNRECOGNIZED DRUG - OTHER] IV SCH (22:47)
[2021-04-20] MEDS: CALCIUM GLUCONATE IV SCH (22:47)
[2021-04-20] MEDS: POTASSIUM CHLORIDE IV SCH (22:47)
[2021-04-20] MEDS: POTASSIUM PHOSPHATE IV SCH (22:47)
[2021-04-21] MEDS: Piperacillin/Tazobactam 4.5 GM in Sodium Chloride 0.9% 100 ML IVPB SCH ×5 (00:01→23:51)
[2021-04-21] MEDS: HumaLOG 300 UNITS/3 ML VIAL SC PRN ×3 (00:15→16:00)
[2021-04-21] MEDS ORDERED: Potassium Chloride 40 MEQ in Premix Bag 1 BAG IVPB SCH ×2 (00:15→06:30)
[2021-04-21] MEDS ORDERED: Fentanyl CADD 100 ML ONE (01:31)
[2021-04-21] MEDS: Fentanyl CADD 100 ML IV SCH (01:36)
[2021-04-21] MEDS: Propofol 1,000 MG/100 ML VIAL IV PRN ×2 (01:36→05:53)
[2021-04-21] MEDS: Vancomycin 1.5 GRAM/300 ML BAG 1.5 GM in Premix Bag 1 BAG IVPB SCH ×2 (01:59→15:54)
[2021-04-21 05:08] LABS: ALT (SGPT) 10 U/L (8-55); AST (SGOT) 4 U/L (5-34); Albumin 2.8 g/dL (3.5-5.0); Alkaline Phosphatase 58 U/L (40-110); Anion Gap 13 mmol/L (10-20); BUN (Urea Nitrogen) 17 mg/dL (8.9-20.6); Bilirubin, Total 0.3 mg/dL (0.2-1.2); Calc. Creatinine Clearance 155 mL/min (70-130); Calcium 7.7 mg/dL (7.8-10.44); Carbon Dioxide 21 mmol/L (22-29); Chloride 131 mmol/L (98-107); Globulin 2.1 g/dL (2.4-3.5); Glucose 244 mg/dL (70-105); Phosphorus 2.4 mg/dL (2.3-4.7); Potassium 3.5 mmol/L (3.5-5.1); Protein, Total 4.9 g/dL (6.0-8.3); Sodium 161 mmol/L (136-145)
[2021-04-21 05:13] LABS: Band 17 % (5-11); Hemoglobin 9.3 g/dL (14.0-18.0); Lymphocytes 12 % (21-51); MDiff Complete? YES; Mean Corpuscular HGB CONC 32.1 g/dL (32.0-36.0); Mean Corpuscular Hemoglobin 29.6 pg (27.0-31.0); Mean Corpuscular Volume 92.2 fL (78.0-98.0); Neutrophil 71 % (42-75); Platelet Count 120 thou/uL (130-400); RBC Distribution Width 14.9 % (11.5-14.5); Red Blood Cell (RBC) Count 3.14 mill/uL (4.70-6.10); White Blood Cell (WBC) Count 9.1 thou/uL (4.8-10.8)
[2021-04-21 07:49] LABS: Actual Bicarbonate (HCO3a) 19.2 mEq/L (22-28); Base Excess (BEa) -4.6 mEq/L (-2.0 to +3.0); CO2 Tension 31.2 mmHg (35.0-45.0); Calcium, Ionized (arterial) 1.14 mmol/L (1.12-1.30); Carboxyhemoglobin (COHb) 0.6 gm% (0.0-3.0); Hemoglobin (Hb) 10.5 g/dL (14.0-18.0); O2 Tension (PaO2), arterial 117.9 mmHg (80.0-100.0); Potassium - ABG Lab 3.54 mmol/L (3.70-5.30); pH, Arterial 7.41 (7.35-7.45)
[2021-04-21 07:53] LABS: Puncture Site RRA
[2021-04-21] MEDS: Dextrose 5% in Water 1,000 ML IV SCH ×3 (09:03→21:39)
[2021-04-21] MEDS: Enoxaparin Sodium 40 MG/0.4 ML SYRINGE SC SCH (09:06)
[2021-04-21] MEDS: Hydrocortisone Sod Succ/PF 100 mg/2 ml Vial IVP SCH ×2 (09:07→21:23)
[2021-04-21] MEDS ORDERED: Ketorolac Tromethamine 30 MG/ML VIAL IVP PRN (11:13)
[2021-04-21] MEDS ORDERED: Ketorolac Tromethamine 30 MG/ML VIAL IVP SCH (11:15)
[2021-04-21] MEDS ORDERED: DC Sedation Protocol FS ONE (12:52)
[2021-04-21] MEDS: Lantus 1000 UNITS/10 ML VIAL SC SCH (16:00)
[2021-04-21] MEDS: Morphine 4 MG/ML VIAL SLOW IVP PRN (16:22)
[2021-04-21] MEDS: Morphine 2 MG/ML VIAL SLOW IVP PRN ×2 (19:44→23:16)
[2021-04-21] MEDS: Pantoprazole 40 MG VIAL IVP SCH (21:23)
[2021-04-21] MEDS: [UNRECOGNIZED DRUG - OTHER] IV SCH (21:38)
[2021-04-21] MEDS: CALCIUM GLUCONATE IV SCH (21:38)
[2021-04-21] MEDS: POTASSIUM PHOSPHATE IV SCH (21:38)
[2021-04-21] MEDS: POTASSIUM CHLORIDE IV SCH (21:38)
[2021-04-22 01:34] LABS: Vancomycin, Trough 23.9 ug/mL
[2021-04-22] MEDS: Morphine 2 MG/ML VIAL SLOW IVP PRN ×2 (03:05→23:02)
[2021-04-22 04:43] LABS: ALT (SGPT) 8 U/L (8-55); AST (SGOT) 5 U/L (5-34); Albumin 2.5 g/dL (3.5-5.0); Alkaline Phosphatase 62 U/L (40-110); Anion Gap 8 mmol/L (10-20); BUN (Urea Nitrogen) 23 mg/dL (8.9-20.6); Bilirubin, Total 0.4 mg/dL (0.2-1.2); Calc. Creatinine Clearance 149 mL/min (70-130); Calcium 7.9 mg/dL (7.8-10.44); Carbon Dioxide 23 mmol/L (22-29); Chloride 133 mmol/L (98-107); Globulin 2.3 g/dL (2.4-3.5); Glucose 205 mg/dL (70-105); Phosphorus 3.5 mg/dL (2.3-4.7); Potassium 3.7 mmol/L (3.5-5.1); Protein, Total 4.8 g/dL (6.0-8.3); Sodium 160 mmol/L (136-145)
[2021-04-22 04:55] LABS: Band 10 % (5-11); Eosinophils 1 % (0-10); Lymphocytes 17 % (21-51); MDiff Complete? YES; Mean Corpuscular HGB CONC 30.8 g/dL (32.0-36.0); Mean Corpuscular Hemoglobin 28.7 pg (27.0-31.0); Mean Corpuscular Volume 93.2 fL (78.0-98.0); Mean Platelet Volume 9.9 fL (7.4-10.4); Monocytes 1 % (0-10); Neutrophil 71 % (42-75); Platelet Count 87 thou/uL (130-400); Platelet Morphology Comment Appears Decreased; RBC Distribution Width 15.3 % (11.5-14.5); Red Blood Cell (RBC) Count 3.13 mill/uL (4.70-6.10); Tear Drops SLIGHT = 2-5 cells (100X) (0-1/hpf); White Blood Cell (WBC) Count 8.7 thou/uL (4.8-10.8)
[2021-04-22] MEDS: HumaLOG 300 UNITS/3 ML VIAL SC PRN ×2 (04:59→16:22)
[2021-04-22] MEDS: Piperacillin/Tazobactam 4.5 GM in Sodium Chloride 0.9% 100 ML IVPB SCH ×3 (05:35→16:33)
[2021-04-22] MEDS ORDERED: VANCOMYCIN 1.25 GM/250 ML BAG 1.25 GM in Premix Bag 1 BAG IVPB SCH (06:00)
[2021-04-22] MEDS: Morphine 4 MG/ML VIAL SLOW IVP PRN ×4 (07:53→17:25)
[2021-04-22] MEDS: Hydrocortisone Sod Succ/PF 100 mg/2 ml Vial IVP SCH ×2 (08:12→21:23)
[2021-04-22] MEDS: Enoxaparin Sodium 40 MG/0.4 ML SYRINGE SC SCH (08:13)
[2021-04-22] MEDS: Dextrose 5% in Water 1,000 ML IV SCH ×2 (08:37→21:24)
[2021-04-22] MEDS: Lantus 1000 UNITS/10 ML VIAL SC SCH (14:27)
[2021-04-22] MEDS ORDERED: traMADol HCl 50 MG TAB PO PRN (18:00)
[2021-04-22] MEDS ORDERED: hydrOXYzine 25 MG TAB PO PRN (18:00)
[2021-04-22] MEDS ORDERED: Albuterol Sulfate 2.5 mg/3 ml Neb NEB PRN (18:04)
[2021-04-22] MEDS: Mometasone 200 MCG/Formoterol 5 MCG 120 PUFF INHALER INH SCH (18:44)
[2021-04-22] MEDS: Gabapentin 300 MG CAP PO SCH (21:22)
[2021-04-22] MEDS: Nystatin Cream 15 GM TUBE TOP SCH (21:23)
[2021-04-23] MEDS: Piperacillin/Tazobactam 4.5 GM in Sodium Chloride 0.9% 100 ML IVPB SCH ×2 (00:30→05:42)
[2021-04-23 04:47] LABS: Hemoglobin 8.3 g/dL (14.0-18.0); Mean Corpuscular HGB CONC 31.6 g/dL (32.0-36.0); Mean Corpuscular Hemoglobin 29.3 pg (27.0-31.0); Mean Corpuscular Volume 92.8 fL (78.0-98.0); Mean Platelet Volume 9.5 fL (7.4-10.4); Platelet Count 71 thou/uL (130-400); RBC Distribution Width 15.3 % (11.5-14.5); Red Blood Cell (RBC) Count 2.84 mill/uL (4.70-6.10); White Blood Cell (WBC) Count 7.1 thou/uL (4.8-10.8)
[2021-04-23 05:01] LABS: ALT (SGPT) 8 U/L (8-55); AST (SGOT) 8 U/L (5-34); Albumin 2.4 g/dL (3.5-5.0); Alkaline Phosphatase 83 U/L (40-110); Anion Gap 7 mmol/L (10-20); BUN (Urea Nitrogen) 28 mg/dL (8.9-20.6); Bilirubin, Total 0.5 mg/dL (0.2-1.2); Calc. Creatinine Clearance 144 mL/min (70-130); Calcium 7.6 mg/dL (7.8-10.44); Carbon Dioxide 24 mmol/L (22-29); Chloride 125 mmol/L (98-107); Globulin 2.5 g/dL (2.4-3.5); Glucose 139 mg/dL (70-105); Phosphorus 4.1 mg/dL (2.3-4.7); Potassium 3.1 mmol/L (3.5-5.1); Protein, Total 4.9 g/dL (6.0-8.3); Sodium 153 mmol/L (136-145)
[2021-04-23 05:16] LABS: Anisocytosis SLIGHT = 6-15 cells (100X) (0-5/hpf); Band 24 % (5-11); Lymphocytes 14 % (21-51); MDiff Complete? YES; Monocytes 1 % (0-10); Neutrophil 61 % (42-75); Nucleated RBC 1 % (0); Platelet Morphology Comment Appears Decreased
[2021-04-23] MEDS ORDERED: Potassium Chloride 40 MEQ in Premix Bag 1 BAG IVPB SCH (05:30)
[2021-04-23] MEDS ORDERED: Magnesium 2 GM/50 ML 2 GM in Premix Bag 1 BAG IVPB SCH (06:15)
[2021-04-23] MEDS: Mometasone 200 MCG/Formoterol 5 MCG 120 PUFF INHALER INH SCH ×2 (07:10→18:49)
[2021-04-23] MEDS: predniSONE 20 MG TAB PO SCH (08:11)
[2021-04-23] MEDS: glyBURIDE 5 MG TAB PO SCH (08:12)
[2021-04-23] MEDS: Polyethylene Glycol 3350 17 GM Packet PO SCH (08:12)
[2021-04-23] MEDS: Gabapentin 300 MG CAP PO SCH ×3 (08:12→21:02)
[2021-04-23] MEDS: Dextrose 5% in Water 1,000 ML IV SCH ×2 (09:25→17:36)
[2021-04-23] MEDS: Nystatin Cream 15 GM TUBE TOP SCH ×2 (09:27→21:02)
[2021-04-23] MEDS: Piperacillin/Tazobactam 3.375 GM in Sodium Chloride 0.9% 100 ML IVPB SCH ×2 (11:25→18:44)
[2021-04-23] MEDS: Enoxaparin Sodium 40 MG/0.4 ML SYRINGE SC SCH (11:30)
[2021-04-23] MEDS: traMADol HCl 50 MG TAB PO PRN (11:42)
[2021-04-23] MEDS: Morphine 4 MG/ML VIAL SLOW IVP PRN (11:53)
[2021-04-23] MEDS: Vancomycin 1.5 GRAM/300 ML BAG 1.5 GM in Premix Bag 1 BAG IVPB SCH (13:31)
[2021-04-23 13:50] VITALS: BMI 37.5
[2021-04-23] MEDS: Lantus 1000 UNITS/10 ML VIAL SC SCH (15:40)
[2021-04-23] MEDS: HumaLOG 300 UNITS/3 ML VIAL SC PRN (17:08)
[2021-04-24] MEDS: Dextrose 5% in Water 1,000 ML IV SCH (02:49)
[2021-04-24] MEDS: Piperacillin/Tazobactam 3.375 GM in Sodium Chloride 0.9% 100 ML IVPB SCH ×3 (02:49→18:18)
[2021-04-24] MEDS: Dextrose 50% Abboject 50 ML SYRINGE SLOW IVP PRN ×4 (05:51→11:15)
[2021-04-24] MEDS: Mometasone 200 MCG/Formoterol 5 MCG 120 PUFF INHALER INH SCH ×3 (06:41→18:42)
[2021-04-24 07:19] LABS: #Eosinphils 0.1 thou/uL (0.0-0.7); #Lymphocytes 1.9 thou/uL (1.20-3.40); #Monocytes 0.2 thou/uL (0.11-0.59); #Neutrophils 6.3 thou/uL (1.40-6.50); %Basophils 0.3 % (0.0-1.0); %Eosinophils 1.4 % (0.0-10.0); %Lymphocytes 22.1 % (21.0-51.0); %Monocytes 2.5 % (0.0-10.0); %Neutrophils 73.7 % (42.0-75.0); Hemoglobin 9.6 g/dL (14.0-18.0); Mean Corpuscular HGB CONC 30.6 g/dL (32.0-36.0); Mean Corpuscular Hemoglobin 27.9 pg (27.0-31.0); Mean Corpuscular Volume 91.1 fL (78.0-98.0); Mean Platelet Volume 11.1 fL (7.4-10.4); Platelet Count 80 thou/uL (130-400); Red Blood Cell (RBC) Count 3.45 mill/uL (4.70-6.10); White Blood Cell (WBC) Count 8.5 thou/uL (4.8-10.8)
[2021-04-24] MEDS: Gabapentin 300 MG CAP PO SCH ×3 (08:00→21:21)
[2021-04-24 08:52] LABS: Hypochromia SLIGHT = 6-15 cells (100X) (0-5/hpf); MDiff Complete? YES; Ovalocytes SLIGHT = 2-5 cells (100X) (0-1/hpf); Platelet Morphology Comment Appears Decreased; Polychromasia SLIGHT = 2-3 cells (100X) (0-2/hpf)
[2021-04-24] MEDS: Enoxaparin Sodium 40 MG/0.4 ML SYRINGE SC SCH (09:00)
[2021-04-24] MEDS: Nystatin Cream 15 GM TUBE TOP SCH ×2 (09:00→21:23)
[2021-04-24 09:25] LABS: Anion Gap 9 mmol/L (10-20); BUN (Urea Nitrogen) 19 mg/dL (8.9-20.6); Calc. Creatinine Clearance 170 mL/min (70-130); Calcium 7.2 mg/dL (7.8-10.44); Carbon Dioxide 19 mmol/L (22-29); Chloride 111 mmol/L (98-107); Potassium 3.1 mmol/L (3.5-5.1); Sodium 136 mmol/L (136-145)
[2021-04-24] MEDS ORDERED: Potassium Chloride 20 MEQ TAB PO SCH (09:30)
[2021-04-24 09:31] LABS: Glucose 33 mg/dL (70-105)
[2021-04-24] MEDS ORDERED: Potassium Chloride 40 MEQ in Premix Bag 1 BAG IVPB SCH ×2 (10:00→11:30)
[2021-04-24] MEDS: Acetaminophen 500 MG TAB PO PRN (10:01)
[2021-04-24] MEDS ORDERED: Iopamidol 370 76% 100 ML VIAL ONE (10:42)
[2021-04-24 11:09] LABS: #Eosinphils 0.1 thou/uL (0.0-0.7); #Lymphocytes 1.9 thou/uL (1.20-3.40); #Monocytes 0.3 thou/uL (0.11-0.59); #Neutrophils 9.3 thou/uL (1.40-6.50); %Basophils 0.1 % (0.0-1.0); %Eosinophils 0.8 % (0.0-10.0); %Lymphocytes 16.7 % (21.0-51.0); %Monocytes 2.5 % (0.0-10.0); %Neutrophils 79.9 % (42.0-75.0); Hemoglobin 11.9 g/dL (14.0-18.0); Mean Corpuscular HGB CONC 30.5 g/dL (32.0-36.0); Mean Corpuscular Hemoglobin 27.7 pg (27.0-31.0); Mean Corpuscular Volume 90.6 fL (78.0-98.0); Mean Platelet Volume 10.6 fL (7.4-10.4); Platelet Count 113 thou/uL (130-400); RBC Distribution Width 15.3 % (11.5-14.5); Red Blood Cell (RBC) Count 4.29 mill/uL (4.70-6.10); White Blood Cell (WBC) Count 11.6 thou/uL (4.8-10.8)
[2021-04-24 11:33] LABS: Anion Gap 12 mmol/L (10-20); BUN (Urea Nitrogen) 18 mg/dL (8.9-20.6); Calc. Creatinine Clearance 162 mL/min (70-130); Carbon Dioxide 16 mmol/L (22-29); Chloride 111 mmol/L (98-107); Glucose 88 mg/dL (70-105); Potassium 3.7 mmol/L (3.5-5.1); Sodium 135 mmol/L (136-145)
[2021-04-24] MEDS: Morphine 4 MG/ML VIAL SLOW IVP PRN (11:43)
[2021-04-24] MEDS ORDERED: Cefepime 2 GM in Sodium Chloride 0.9% 100 ML IVPB SCH (12:00)
[2021-04-24] MEDS ORDERED: methylPREDNISolone Sod Succ 40 MG VIAL IVP SCH (12:00)
[2021-04-24] MEDS ORDERED: Potassium Chloride 20 MEQ in Premix Bag 1 BAG IVPB SCH (12:00)
[2021-04-24] MEDS: Polyethylene Glycol 3350 17 GM Packet PO SCH (12:08)
[2021-04-24] MEDS ORDERED: Pantoprazole 40 MG VIAL IVP SCH (12:15)
[2021-04-24] MEDS ORDERED: Sodium Chloride 0.9% (PF) 10 ML VIAL FS PRN (12:15)
[2021-04-24] MEDS: Cefepime 2 GM in Sodium Chloride 0.9% 100 ML IVPB SCH (13:00)
[2021-04-24 13:46] LABS: Lactic Acid 1.7 mmol/L (0.5-2.2)
[2021-04-24] MEDS: Lantus 1000 UNITS/10 ML VIAL SC SCH (15:00)
[2021-04-24] MEDS: predniSONE 20 MG TAB PO SCH (19:21)
[2021-04-24] MEDS: glyBURIDE 5 MG TAB PO SCH (19:21)
[2021-04-24] MEDS: Vancomycin 1.5 GRAM/300 ML BAG 1.5 GM in Premix Bag 1 BAG IVPB SCH (20:28)
[2021-04-24] MEDS: traMADol HCl 50 MG TAB PO PRN (20:33)
[2021-04-24] MEDS ORDERED: VANCOMYCIN 1.25 GM/250 ML BAG 1.25 GM in Premix Bag 1 BAG IVPB SCH (21:00)
[2021-04-25] MEDS: Cefepime 2 GM in Sodium Chloride 0.9% 100 ML IVPB SCH ×2 (02:03→13:28)
[2021-04-25] MEDS: Piperacillin/Tazobactam 3.375 GM in Sodium Chloride 0.9% 100 ML IVPB SCH ×3 (02:04→17:49)
[2021-04-25 05:10] LABS: Anion Gap 10 mmol/L (10-20); BUN (Urea Nitrogen) 18 mg/dL (8.9-20.6); Calc. Creatinine Clearance 154 mL/min (70-130); Calcium 7.1 mg/dL (7.8-10.44); Carbon Dioxide 20 mmol/L (22-29); Chloride 112 mmol/L (98-107); Glucose 173 mg/dL (70-105); Potassium 3.7 mmol/L (3.5-5.1); Sodium 138 mmol/L (136-145)
[2021-04-25] MEDS: Mometasone 200 MCG/Formoterol 5 MCG 120 PUFF INHALER INH SCH ×2 (06:56→19:44)
[2021-04-25] MEDS: traMADol HCl 50 MG TAB PO PRN (07:16)
[2021-04-25] MEDS: Vancomycin 1.5 GRAM/300 ML BAG 1.5 GM in Premix Bag 1 BAG IVPB SCH ×2 (08:54→21:07)
[2021-04-25] MEDS ORDERED: Pantoprazole 40 MG VIAL IVP SCH (09:00)
[2021-04-25] MEDS: Gabapentin 300 MG CAP PO SCH ×3 (09:27→21:07)
[2021-04-25] MEDS: methylPREDNISolone Sod Succ 40 MG VIAL IVP SCH (09:28)
[2021-04-25] MEDS: Nystatin Cream 15 GM TUBE TOP SCH ×2 (09:29→21:07)
[2021-04-25] MEDS: Enoxaparin Sodium 40 MG/0.4 ML SYRINGE SC SCH (09:30)
[2021-04-25] MEDS: Polyethylene Glycol 3350 17 GM Packet PO SCH (09:30)
[2021-04-25 10:23] LABS: #Lymphocytes 1.5 thou/uL (1.20-3.40); #Monocytes 0.4 thou/uL (0.11-0.59); #Neutrophils 10.7 thou/uL (1.40-6.50); %Basophils 0.1 % (0.0-1.0); %Eosinophils 0.2 % (0.0-10.0); %Lymphocytes 12.1 % (21.0-51.0); %Monocytes 3.5 % (0.0-10.0); %Neutrophils 84.2 % (42.0-75.0); Hemoglobin 9.7 g/dL (14.0-18.0); Mean Corpuscular HGB CONC 32.9 g/dL (32.0-36.0); Mean Corpuscular Hemoglobin 29.1 pg (27.0-31.0); Mean Corpuscular Volume 88.5 fL (78.0-98.0); Mean Platelet Volume 10.8 fL (7.4-10.4); Platelet Count 94 thou/uL (130-400); RBC Distribution Width 14.8 % (11.5-14.5); Red Blood Cell (RBC) Count 3.33 mill/uL (4.70-6.10); White Blood Cell (WBC) Count 12.7 thou/uL (4.8-10.8)
[2021-04-25] MEDS: Morphine 4 MG/ML VIAL SLOW IVP PRN (11:20)
[2021-04-25] MEDS: Lantus 1000 UNITS/10 ML VIAL SC SCH (14:44)
[2021-04-25] MEDS: HumaLOG 300 UNITS/3 ML VIAL SC PRN ×2 (16:38→21:20)
[2021-04-26] MEDS: Cefepime 2 GM in Sodium Chloride 0.9% 100 ML IVPB SCH ×2 (00:44→12:08)
[2021-04-26 06:56] LABS: #Lymphocytes 1.6 thou/uL (1.20-3.40); #Monocytes 0.4 thou/uL (0.11-0.59); #Neutrophils 8.4 thou/uL (1.40-6.50); %Basophils 0.3 % (0.0-1.0); %Eosinophils 0.3 % (0.0-10.0); %Lymphocytes 15.1 % (21.0-51.0); %Monocytes 3.5 % (0.0-10.0); Hemoglobin 9.3 g/dL (14.0-18.0); Mean Corpuscular Hemoglobin 27.7 pg (27.0-31.0); Mean Corpuscular Volume 89.3 fL (78.0-98.0); Mean Platelet Volume 10.3 fL (7.4-10.4); Platelet Count 127 thou/uL (130-400); RBC Distribution Width 14.8 % (11.5-14.5); Red Blood Cell (RBC) Count 3.37 mill/uL (4.70-6.10); White Blood Cell (WBC) Count 10.3 thou/uL (4.8-10.8)
[2021-04-26] MEDS: Mometasone 200 MCG/Formoterol 5 MCG 120 PUFF INHALER INH SCH ×2 (07:05→20:52)
[2021-04-26 07:07] LABS: INR-International Normal Ratio 1.1; Prothrombin Time 14.1 sec (12.0-14.7)
[2021-04-26 07:14] LABS: Vancomycin, Trough 26.4 ug/mL
[2021-04-26 07:16] LABS: Anion Gap 11 mmol/L (10-20); BUN (Urea Nitrogen) 17 mg/dL (8.9-20.6); Calc. Creatinine Clearance 154 mL/min (70-130); Calcium 7.6 mg/dL (7.8-10.44); Carbon Dioxide 22 mmol/L (22-29); Chloride 120 mmol/L (98-107); Glucose 114 mg/dL (70-105); Potassium 3.3 mmol/L (3.5-5.1); Sodium 150 mmol/L (136-145)
[2021-04-26] MEDS ORDERED: Electrolyte Replacement Protocol FS PRN (08:15)
[2021-04-26] MEDS ORDERED: Potassium Chloride 20 MEQ TAB PO SCH ×2 (08:15→10:45)
[2021-04-26] MEDS ORDERED: Magnesium 2 GM/50 ML 2 GM in Premix Bag 1 BAG IVPB SCH (09:45)
[2021-04-26] MEDS: Gabapentin 300 MG CAP PO SCH ×3 (10:01→20:34)
[2021-04-26] MEDS: Enoxaparin Sodium 40 MG/0.4 ML SYRINGE SC SCH (10:02)
[2021-04-26] MEDS: Nystatin Cream 15 GM TUBE TOP SCH ×2 (10:04→20:37)
[2021-04-26] MEDS: methylPREDNISolone Sod Succ 40 MG VIAL IVP SCH (10:05)
[2021-04-26] MEDS: Morphine 4 MG/ML VIAL SLOW IVP PRN (10:32)
[2021-04-26] MEDS: traMADol HCl 50 MG TAB PO PRN (10:35)
[2021-04-26] MEDS: Dextrose 5% in Water 1,000 ML IV SCH (12:07)
[2021-04-26] MEDS: Lantus 1000 UNITS/10 ML VIAL SC SCH (15:55)
[2021-04-26] MEDS: HumaLOG 300 UNITS/3 ML VIAL SC PRN (17:39)
[2021-04-26] MEDS: VANCOMYCIN 1.25 GM/250 ML BAG 1.25 GM in Premix Bag 1 BAG IVPB SCH (20:35)
[2021-04-27] MEDS: Dextrose 5% in Water 1,000 ML IV SCH ×3 (00:41→18:09)
[2021-04-27] MEDS: Cefepime 2 GM in Sodium Chloride 0.9% 100 ML IVPB SCH ×2 (00:42→13:29)
[2021-04-27 06:09] LABS: #Lymphocytes 2.1 thou/uL (1.20-3.40); #Monocytes 0.3 thou/uL (0.11-0.59); %Basophils 0.2 % (0.0-1.0); %Eosinophils 0.3 % (0.0-10.0); %Monocytes 3.2 % (0.0-10.0); %Neutrophils 71.3 % (42.0-75.0); Hemoglobin 8.6 g/dL (14.0-18.0); Mean Corpuscular HGB CONC 32.5 g/dL (32.0-36.0); Mean Corpuscular Hemoglobin 28.8 pg (27.0-31.0); Mean Corpuscular Volume 88.6 fL (78.0-98.0); Platelet Count 121 thou/uL (130-400); RBC Distribution Width 15.3 % (11.5-14.5); Red Blood Cell (RBC) Count 2.97 mill/uL (4.70-6.10); White Blood Cell (WBC) Count 8.4 thou/uL (4.8-10.8)
[2021-04-27 06:28] LABS: Anion Gap 9 mmol/L (10-20); BUN (Urea Nitrogen) 15 mg/dL (8.9-20.6); Calc. Creatinine Clearance 172 mL/min (70-130); Carbon Dioxide 21 mmol/L (22-29); Chloride 112 mmol/L (98-107); Glucose 80 mg/dL (70-105); Magnesium 1.9 mg/dL (1.6-2.6); Potassium 3.1 mmol/L (3.5-5.1); Sodium 139 mmol/L (136-145)
[2021-04-27] MEDS: Mometasone 200 MCG/Formoterol 5 MCG 120 PUFF INHALER INH SCH ×2 (06:47→19:20)
[2021-04-27] MEDS ORDERED: Magnesium 2 GM/50 ML 2 GM in Premix Bag 1 BAG IVPB SCH (08:00)
[2021-04-27] MEDS: Enoxaparin Sodium 40 MG/0.4 ML SYRINGE SC SCH (08:52)
[2021-04-27] MEDS: methylPREDNISolone Sod Succ 40 MG VIAL IVP SCH (08:53)
[2021-04-27] MEDS: Gabapentin 300 MG CAP PO SCH ×3 (08:53→21:03)
[2021-04-27] MEDS: Potassium Chloride 20 MEQ TAB PO SCH ×3 (08:53→18:09)
[2021-04-27] MEDS: Nystatin Cream 15 GM TUBE TOP SCH ×2 (08:54→21:03)
[2021-04-27] MEDS: VANCOMYCIN 1.25 GM/250 ML BAG 1.25 GM in Premix Bag 1 BAG IVPB SCH ×2 (09:13→21:03)
[2021-04-27] MEDS: Morphine 4 MG/ML VIAL SLOW IVP PRN (09:22)
[2021-04-27] MEDS: traMADol HCl 50 MG TAB PO PRN ×2 (09:23→15:49)
[2021-04-27] MEDS ORDERED: Desmopressin Acetate 0.01% Nasal Solution NASAL SCH (11:15)
[2021-04-27] MEDS: Acetaminophen/Codeine 30-300mg Tablet PO PRN (12:24)
[2021-04-27] MEDS: Lantus 1000 UNITS/10 ML VIAL SC SCH (15:53)
[2021-04-28] MEDS: Cefepime 2 GM in Sodium Chloride 0.9% 100 ML IVPB SCH (01:41)
[2021-04-28] MEDS: Dextrose 5% in Water 1,000 ML IV SCH ×3 (05:38→21:16)
[2021-04-28 07:04] LABS: Anion Gap 12 mmol/L (10-20); BUN (Urea Nitrogen) 11 mg/dL (8.9-20.6); Calc. Creatinine Clearance 0 mL/min (70-130); Calcium 6.8 mg/dL (7.8-10.44); Carbon Dioxide 21 mmol/L (22-29); Chloride 101 mmol/L (98-107); Glucose 78 mg/dL (70-105); Magnesium 1.8 mg/dL (1.6-2.6); Potassium 3.8 mmol/L (3.5-5.1); Sodium 130 mmol/L (136-145)
[2021-04-28] MEDS ORDERED: Magnesium 2 GM/50 ML 2 GM in Premix Bag 1 BAG IVPB SCH (07:30)
[2021-04-28] MEDS ORDERED: predniSONE 20 MG TAB PO SCH (08:00)
[2021-04-28] MEDS: Acetaminophen 500 MG TAB PO PRN (08:03)
[2021-04-28] MEDS: Gabapentin 300 MG CAP PO SCH ×3 (08:04→21:15)
[2021-04-28] MEDS: traMADol HCl 50 MG TAB PO PRN (08:04)
[2021-04-28] MEDS: methylPREDNISolone Sod Succ 40 MG VIAL IVP SCH (08:05)
[2021-04-28] MEDS: VANCOMYCIN 1.25 GM/250 ML BAG 1.25 GM in Premix Bag 1 BAG IVPB SCH (08:06)
[2021-04-28] MEDS: Desmopressin Acetate 0.01% Nasal Solution NASAL SCH (08:06)
[2021-04-28] MEDS: Mometasone 200 MCG/Formoterol 5 MCG 120 PUFF INHALER INH SCH ×2 (08:17→20:02)
[2021-04-28] MEDS: Enoxaparin Sodium 40 MG/0.4 ML SYRINGE SC SCH (09:41)
[2021-04-28] MEDS: Nystatin Cream 15 GM TUBE TOP SCH ×2 (09:43→21:15)
[2021-04-28] MEDS ORDERED: Amoxicillin/Potassium Clav 500 MG TAB PO SCH (10:00)
[2021-04-28] MEDS: Acetaminophen/Codeine 30-300mg Tablet PO PRN (10:34)
[2021-04-28] MEDS: Lantus 1000 UNITS/10 ML VIAL SC SCH (15:39)
[2021-04-28] MEDS: HumaLOG 300 UNITS/3 ML VIAL SC PRN (18:28)
[2021-04-28] MEDS: Amoxicillin/Potassium Clav 500 MG TAB PO SCH (21:15)
[2021-04-29 06:13] LABS: Anion Gap 15 mmol/L (10-20); BUN (Urea Nitrogen) 10 mg/dL (8.9-20.6); Calc. Creatinine Clearance 0 mL/min (70-130); Calcium 6.9 mg/dL (7.8-10.44); Carbon Dioxide 22 mmol/L (22-29); Chloride 94 mmol/L (98-107); Glucose 109 mg/dL (70-105); Magnesium 1.9 mg/dL (1.6-2.6); Potassium 3.5 mmol/L (3.5-5.1); Sodium 127 mmol/L (136-145)
[2021-04-29] MEDS: Mometasone 200 MCG/Formoterol 5 MCG 120 PUFF INHALER INH SCH ×2 (06:59→18:11)
[2021-04-29] MEDS ORDERED: Magnesium 2 GM/50 ML 2 GM in Premix Bag 1 BAG IVPB SCH (07:00)
[2021-04-29] MEDS ORDERED: Potassium Chloride 20 MEQ TAB PO SCH (07:15)
[2021-04-29] MEDS: Enoxaparin Sodium 40 MG/0.4 ML SYRINGE SC SCH (07:55)
[2021-04-29] MEDS: Nystatin Cream 15 GM TUBE TOP SCH (07:55)
[2021-04-29] MEDS: Amoxicillin/Potassium Clav 500 MG TAB PO SCH (07:56)
[2021-04-29] MEDS: Gabapentin 300 MG CAP PO SCH ×2 (07:56→14:41)
[2021-04-29] MEDS: Desmopressin Acetate 0.01% Nasal Solution NASAL SCH (07:56)
[2021-04-29] MEDS: Acetaminophen/Codeine 30-300mg Tablet PO PRN ×2 (07:57→14:45)
[2021-04-29] MEDS ORDERED: predniSONE 5 MG TAB PO SCH (08:00)
[2021-04-29] MEDS: Dextrose 5% in Water 1,000 ML IV SCH (08:12)
[2021-04-29] MEDS ORDERED: Iopamidol 370 76% 50 ML VIAL FS ONE (09:30)
[2021-04-29] MEDS ORDERED: Iopamidol-370 76% 500 ML 1 ML ONE (09:30)
[2021-04-29 09:43] LABS: #Eosinphils 0.1 thou/uL (0.0-0.7); #Lymphocytes 2.9 thou/uL (1.20-3.40); #Monocytes 0.5 thou/uL (0.11-0.59); #Neutrophils 7.8 thou/uL (1.40-6.50); %Basophils 0.2 % (0.0-1.0); %Eosinophils 0.6 % (0.0-10.0); %Lymphocytes 26.2 % (21.0-51.0); %Neutrophils 69.1 % (42.0-75.0); Hemoglobin 9.7 g/dL (14.0-18.0); Mean Corpuscular HGB CONC 33.1 g/dL (32.0-36.0); Mean Corpuscular Hemoglobin 28.6 pg (27.0-31.0); Mean Corpuscular Volume 86.5 fL (78.0-98.0); Mean Platelet Volume 8.7 fL (7.4-10.4); Platelet Count 230 thou/uL (130-400); RBC Distribution Width 15.1 % (11.5-14.5); White Blood Cell (WBC) Count 11.2 thou/uL (4.8-10.8)
[2021-04-29] MEDS ORDERED: Ondansetron PF 4 MG/2 ML Vial IVP PRN (10:51)
[2021-04-29] MEDS: traMADol HCl 50 MG TAB PO PRN (13:30)
[2021-04-29] MEDS: Lantus 1000 UNITS/10 ML VIAL SC SCH (14:42)
[2021-04-29 19:43] VITALS: BP 96/56; TEMP 99.6
== END 2021-04-29 19:55 | disposition home health service (06) | DRG 853 ==
LOC: ERS 03:17 → SURG A 05:23 → CCU 09:50 → T4-A 04-23 20:35 → CCU 04-24 11:14 → SURG A 04-25 18:36
PROVIDERS: ADMIT Surgery; ATTEND Surgery
PROC: 0DBG0ZZ Excision of Left Large Intestine, Open Approach (ICD-10-PCS; principal; 2021-04-17)
PROC: 0DBE0ZZ Excision of Large Intestine, Open Approach (ICD-10-PCS; 2021-04-17)
PROC: 0WPF0JZ Removal of Synthetic Substitute from Abdominal Wall, Open Approach (ICD-10-PCS; 2021-04-17)
PROC: 30233N1 Transfusion of Nonautologous Red Blood Cells into Peripheral Vein, Percutaneous Approach (ICD-10-PCS; 2021-04-17)
PROC: 02HV33Z Insertion of Infusion Device into Superior Vena Cava, Percutaneous Approach (ICD-10-PCS; 2021-04-17)
PROC: 3E0336Z Introduction of Nutritional Substance into Peripheral Vein, Percutaneous Approach (ICD-10-PCS; 2021-04-17)
PROC: 5A1945Z Respiratory Ventilation, 24-96 Consecutive Hours (ICD-10-PCS; 2021-04-17)
PROC: 3E043XZ Introduction of Vasopressor into Central Vein, Percutaneous Approach (ICD-10-PCS; 2021-04-17)
PROC: 0D9670Z Drainage of Stomach with Drainage Device, Via Natural or Artificial Opening (ICD-10-PCS; 2021-04-17)
PROC: 0D1L0Z4 Bypass Transverse Colon to Cutaneous, Open Approach (ICD-10-PCS; 2021-04-20)
PROC: 02H633Z Insertion of Infusion Device into Right Atrium, Percutaneous Approach (ICD-10-PCS; 2021-04-24)
PROC: B548ZZA Ultrasonography of Superior Vena Cava, Guidance (ICD-10-PCS; 2021-04-24)
PROC: 05PYX3Z Removal of Infusion Device from Upper Vein, External Approach (ICD-10-PCS; 2021-04-24)
DX: A41.9 Sepsis, unspecified organism (principal); K63.1 Perforation of intestine (nontraumatic); T80.211A Bloodstream infection due to central venous catheter, initial encounter; K65.8 Other peritonitis; L89.154 Pressure ulcer of sacral region, stage 4; R65.21 Severe sepsis with septic shock; J18.9 Pneumonia, unspecified organism; J95.821 Acute postprocedural respiratory failure; K94.09 Other complications of colostomy; E23.2 Diabetes insipidus; C96.6 Unifocal Langerhans-cell histiocytosis; K43.3 Parastomal hernia with obstruction, without gangrene; D61.818 Other pancytopenia; E44.0 Moderate protein-calorie malnutrition; L02.211 Cutaneous abscess of abdominal wall; Z20.822 Contact with and (suspected) exposure to COVID-19; E66.01 Morbid (severe) obesity due to excess calories; J44.9 Chronic obstructive pulmonary disease, unspecified; J98.4 Other disorders of lung; N18.1 Chronic kidney disease, stage 1; I12.9 Hypertensive chronic kidney disease with stage 1 through stage 4 chronic kidney disease, or unspecified chronic kidney disease; E11.22 Type 2 diabetes mellitus with diabetic chronic kidney disease; K59.00 Constipation, unspecified; Y83.3 Surgical operation with formation of external stoma as the cause of abnormal reaction of the patient, or of later complication, without mention of misadventure at the time of the procedure; E11.649 Type 2 diabetes mellitus with hypoglycemia without coma; Z78.1 Physical restraint status; Z53.31 Laparoscopic surgical procedure converted to open procedure; Z90.49 Acquired absence of other specified parts of digestive tract; Z87.891 Personal history of nicotine dependence; Z68.33 Body mass index [BMI] 33.0-33.9, adult; Z79.899 Other long term (current) drug therapy; Z79.52 Long term (current) use of systemic steroids; Z91.19 Patient's noncompliance with other medical treatment and regimen; Y84.8 Other medical procedures as the cause of abnormal reaction of the patient, or of later complication, without mention of misadventure at the time of the procedure
CPT/HCPCS: 36415; 36416; 36430; 36600; 71045; 74177; 80048; 80053; 80061; 80202; 81003; 82533; 82805; 83605; 83690; 83735; 83935; 84100; 84134; 85025; 85049; 85300; 85362; 85379; 85384; 85610; 85730; 86850; 86900; 86901; 87040; 87086; 88307; 88309; 88312; 88341; 88342; 94002; 94003; 94640; 96365; 96367; 96375; C9113; J0692; J1200; J1650; J1720; J1815; J1885; J2001; J2060; J2250; J2270; J2370; J2405; J2543; J2597; J2704; J2920; J3010; J3370; J3475; J3480; J3490; J7030; J7050; J7512; J7620; P9016; P9045; P9047; Q9967; S0020; S0028; U0003; U0005

== ENCOUNTER 2021-05-06 06:06 | Inpatient (IN) | payer OTHER, SELFPAY ==
[2021-05-06 06:36] LABS: #Basophils 0.1 thou/uL (0.0-0.2); #Lymphocytes 3.1 thou/uL (1.20-3.40); #Monocytes 0.4 thou/uL (0.11-0.59); %Basophils 1.4 % (0.0-1.0); %Eosinophils 0.2 % (0.0-10.0); %Lymphocytes 29.3 % (21.0-51.0); %Monocytes 3.4 % (0.0-10.0); %Neutrophils 65.7 % (42.0-75.0); Mean Corpuscular HGB CONC 31.8 g/dL (32.0-36.0); Mean Corpuscular Hemoglobin 27.5 pg (27.0-31.0); Mean Corpuscular Volume 86.6 fL (78.0-98.0); Mean Platelet Volume 8.3 fL (7.4-10.4); Platelet Count 255 thou/uL (130-400); RBC Distribution Width 15.7 % (11.5-14.5); Red Blood Cell (RBC) Count 3.98 mill/uL (4.70-6.10); White Blood Cell (WBC) Count 10.6 thou/uL (4.8-10.8)
[2021-05-06] MEDS ORDERED: Vancomycin 1 GM/200 ML BAG ONE (06:52)
[2021-05-06] MEDS ORDERED: Cefepime 2 GM VIAL ONE (06:52)
[2021-05-06 06:57] LABS: ALT (SGPT) 10 U/L (8-55); AST (SGOT) 17 U/L (5-34); Albumin 2.7 g/dL (3.5-5.0); Alkaline Phosphatase 164 U/L (40-110); Anion Gap 17 mmol/L (10-20); BUN (Urea Nitrogen) 6 mg/dL (8.9-20.6); Bilirubin, Total 0.4 mg/dL (0.2-1.2); Calc. Creatinine Clearance 0 mL/min (70-130); Calcium 7.9 mg/dL (7.8-10.44); Carbon Dioxide 24 mmol/L (22-29); Chloride 94 mmol/L (98-107); Globulin 4.4 g/dL (2.4-3.5); Glucose 103 mg/dL (70-105); Magnesium 1.7 mg/dL (1.6-2.6); Potassium 3.6 mmol/L (3.5-5.1); Protein, Total 7.1 g/dL (6.0-8.3); Sodium 131 mmol/L (136-145)
[2021-05-06] MEDS ORDERED: Ondansetron PF 4 MG/2 ML Vial ONE (07:54)
[2021-05-06] MEDS ORDERED: Acetaminophen 500 MG TAB ONE (07:54)
[2021-05-06 09:05] LABS: INR-International Normal Ratio 1.2; Prothrombin Time 15.5 sec (12.0-14.7)
[2021-05-06 09:06] LABS: PTT 31.2 sec (22.9-36.1)
[2021-05-06] MEDS ORDERED: Iopamidol-370 76% 500 ML 1 ML ONE (09:19)
[2021-05-06] MEDS ORDERED: Calcium Carbonate 500 MG ChewTAB PO PRN (09:26)
[2021-05-06] MEDS ORDERED: Sodium Chloride 0.65% Nasal 44 ML BOT EA NARE PRN (09:26)
[2021-05-06] MEDS ORDERED: Ondansetron ODT 4 MG TAB PO PRN (09:26)
[2021-05-06] MEDS ORDERED: Dextrose 50% Abboject 50 ML SYRINGE SLOW IVP PRN (09:26)
[2021-05-06] MEDS ORDERED: Ondansetron PF 4 MG/2 ML Vial IVP PRN (09:26)
[2021-05-06] MEDS ORDERED: Acetaminophen 650 MG Suppository PR PRN (09:26)
[2021-05-06] MEDS ORDERED: Bisacodyl 10 MG SUPP PR PRN (09:26)
[2021-05-06] MEDS ORDERED: Cepastat Lozenges 1 LOZ PO PRN (09:26)
[2021-05-06] MEDS ORDERED: Loratadine 10 MG TAB PO PRN (09:26)
[2021-05-06] MEDS ORDERED: Dextrose 5% in Water 1,000 ML IV PRN (09:26)
[2021-05-06] MEDS ORDERED: Loperamide HCl 2 MG CAP PO PRN (09:26)
[2021-05-06] MEDS ORDERED: Guaifenesin DM 100-10/5 ML UDCUP PO PRN (09:26)
[2021-05-06] MEDS ORDERED: hydrALAZINE 20 MG/ML VIAL SLOW IVP PRN (09:26)
[2021-05-06] MEDS ORDERED: Zolpidem Tartrate 5 MG TAB PO PRN (09:26)
[2021-05-06] MEDS ORDERED: HumaLOG 300 UNITS/3 ML VIAL SC PRN (09:26)
[2021-05-06] MEDS ORDERED: HYDROcodone/Acetaminophen 5/325 mg Tablet PO PRN (09:26)
[2021-05-06] MEDS ORDERED: Senokot S 8.6-50 MG TAB PO PRN (09:26)
[2021-05-06 09:29] LABS: Bacteria/HPF None Seen HPF (None Seen); Bilirubin Negative (Negative); Blood, Urine Negative (Negative); Clarity Clear (Clear); Glucose, Urine (Dipstick) Normal (Negative); Ketone, Urine Negative (Negative); Leukocyte 250 Leu/uL (Negative); Nitrite Negative (Negative); Protein, Urine (Dipstick) Negative (Neg-Trace); RBC/HPF 0-3 HPF (0-3); Squamous Epithelial 0-3 HPF (0-3); Urobilinogen Normal mg/dL (Less than 2); WBC/HPF 0-3 HPF (0-3); pH, Urine 5.5 (5.0-9.0)
[2021-05-06 09:48] LABS: Lactic Acid 2.5 mmol/L (0.5-2.2)
[2021-05-06] MEDS ORDERED: Norepinephrine 8 MG/0.9% NS 250 ML IVPB SCH (12:45)
[2021-05-06] MEDS ORDERED: Norepinephrine 8 MG/0.9% NS 250 ML ONE (12:53)
[2021-05-06] MEDS: NS 0.9% w/ 20 MEQ KCL 1,000 ML/1,000 ML BAG IV SCH ×3 (14:28→22:14)
[2021-05-06] MEDS: metroNIDAZOLE 500 MG in Premix Bag 1 BAG IVPB SCH ×2 (14:29→17:00)
[2021-05-06] MEDS: Morphine 2 MG/ML VIAL SLOW IVP PRN (16:49)
[2021-05-06] MEDS: Budesonide 0.5 MG/2 ML NEB NEB SCH (18:19)
[2021-05-06] MEDS: Famotidine/PF 20 mg/2ml Vial SLOW IVP SCH (19:53)
[2021-05-06] MEDS: Famotidine 20 MG TAB PO SCH (20:00)
[2021-05-07] MEDS: metroNIDAZOLE 500 MG in Premix Bag 1 BAG IVPB SCH ×3 (02:00→17:34)
[2021-05-07 04:41] LABS: #Eosinphils 0.1 thou/uL (0.0-0.7); #Lymphocytes 1.4 thou/uL (1.20-3.40); #Monocytes 0.3 thou/uL (0.11-0.59); #Neutrophils 2.5 thou/uL (1.40-6.50); %Basophils 0.5 % (0.0-1.0); %Eosinophils 1.7 % (0.0-10.0); %Lymphocytes 33.8 % (21.0-51.0); %Monocytes 6.3 % (0.0-10.0); %Neutrophils 57.7 % (42.0-75.0); Hemoglobin 8.4 g/dL (14.0-18.0); Mean Corpuscular HGB CONC 32.3 g/dL (32.0-36.0); Mean Corpuscular Hemoglobin 28.1 pg (27.0-31.0); Mean Corpuscular Volume 87.2 fL (78.0-98.0); Mean Platelet Volume 8.8 fL (7.4-10.4); Platelet Count 157 thou/uL (130-400); RBC Distribution Width 15.3 % (11.5-14.5); Red Blood Cell (RBC) Count 2.98 mill/uL (4.70-6.10); White Blood Cell (WBC) Count 4.3 thou/uL (4.8-10.8)
[2021-05-07 05:03] LABS: ALT (SGPT) 10 U/L (8-55); AST (SGOT) 8 U/L (5-34); Albumin 2.1 g/dL (3.5-5.0); Alkaline Phosphatase 127 U/L (40-110); Anion Gap 11 mmol/L (10-20); BUN (Urea Nitrogen) Less than 4 mg/dL (8.9-20.6); Bilirubin, Total 0.2 mg/dL (0.2-1.2); Calc. Creatinine Clearance 148 mL/min (70-130); Calcium 7.3 mg/dL (7.8-10.44); Carbon Dioxide 25 mmol/L (22-29); Chloride 115 mmol/L (98-107); Globulin 3.6 g/dL (2.4-3.5); Glucose 143 mg/dL (70-105); Potassium 3.2 mmol/L (3.5-5.1); Protein, Total 5.7 g/dL (6.0-8.3); Sodium 148 mmol/L (136-145)
[2021-05-07] MEDS: Budesonide 0.5 MG/2 ML NEB NEB SCH ×2 (06:51→18:26)
[2021-05-07] MEDS: NS 0.9% w/ 20 MEQ KCL 1,000 ML/1,000 ML BAG IV SCH ×2 (07:42→17:34)
[2021-05-07] MEDS: Enoxaparin Sodium 40 MG/0.4 ML SYRINGE SC SCH (08:02)
[2021-05-07] MEDS: Famotidine 20 MG TAB PO SCH ×2 (08:02→20:25)
[2021-05-07] MEDS: Saccharomyces boulardii 250 MG CAP PO SCH (08:02)
[2021-05-07] MEDS: Acetaminophen 325 MG TAB PO PRN ×2 (08:03→21:29)
[2021-05-07] MEDS: Famotidine/PF 20 mg/2ml Vial SLOW IVP SCH ×2 (08:32→20:26)
[2021-05-07] MEDS: Morphine 4 MG/ML VIAL SLOW IVP PRN (09:54)
[2021-05-07] MEDS ORDERED: traMADol HCl 50 MG TAB PO PRN (10:00)
[2021-05-07] MEDS ORDERED: Polyethylene Glycol 3350 17 GM Packet PO PRN (10:00)
[2021-05-07] MEDS ORDERED: hydrOXYzine 25 MG TAB PO PRN (10:00)
[2021-05-07] MEDS ORDERED: cefTRIAXone\\ROCEPHIN 1 GM in Sodium Chloride 0.9% 100 ML IVPB SCH (11:00)
[2021-05-07] MEDS: Mometasone 200 MCG/Formoterol 5 MCG 120 PUFF INHALER INH SCH ×2 (13:13→18:27)
[2021-05-07] MEDS: Gabapentin 300 MG CAP PO SCH ×2 (14:57→20:25)
[2021-05-07] MEDS: Nystatin Cream 15 GM TUBE TOP SCH (20:54)
[2021-05-07 21:31] VITALS: BP 110/64
[2021-05-07] MEDS ORDERED: Potassium Chloride 20 MEQ TAB PO SCH (22:15)
[2021-05-07] MEDS ORDERED: Electrolyte Replacement Protocol 1 EACH FS SCH (22:15)
[2021-05-07] MEDS ORDERED: Piperacillin/Tazobactam 3.375 GM in Sodium Chloride 0.9% 100 ML IVPB SCH (22:30)
[2021-05-07 22:46] LABS: #Eosinphils 0.1 thou/uL (0.0-0.7); #Lymphocytes 1.6 thou/uL (1.20-3.40); #Monocytes 0.3 thou/uL (0.11-0.59); %Basophils 0.4 % (0.0-1.0); %Eosinophils 1.4 % (0.0-10.0); %Lymphocytes 39.8 % (21.0-51.0); %Monocytes 6.7 % (0.0-10.0); %Neutrophils 51.9 % (42.0-75.0); Mean Corpuscular Hemoglobin 28.3 pg (27.0-31.0); Mean Corpuscular Volume 88.3 fL (78.0-98.0); Mean Platelet Volume 8.4 fL (7.4-10.4); Platelet Count 141 thou/uL (130-400); RBC Distribution Width 15.7 % (11.5-14.5); Red Blood Cell (RBC) Count 2.82 mill/uL (4.70-6.10); White Blood Cell (WBC) Count 3.9 thou/uL (4.8-10.8)
[2021-05-07 23:04] LABS: ALT (SGPT) 7 U/L (8-55); AST (SGOT) 7 U/L (5-34); Albumin 2.1 g/dL (3.5-5.0); Alkaline Phosphatase 129 U/L (40-110); Anion Gap 14 mmol/L (10-20); BUN (Urea Nitrogen) Less than 4 mg/dL (8.9-20.6); Bilirubin, Total 0.2 mg/dL (0.2-1.2); Calc. Creatinine Clearance 138 mL/min (70-130); Carbon Dioxide 19 mmol/L (22-29); Chloride 121 mmol/L (98-107); Globulin 3.5 g/dL (2.4-3.5); Glucose 131 mg/dL (70-105); Potassium 3.5 mmol/L (3.5-5.1); Protein, Total 5.6 g/dL (6.0-8.3); Sodium 150 mmol/L (136-145)
[2021-05-07] MEDS: VANCOMYCIN 1.25 GM/250 ML BAG 1.25 GM in Premix Bag 1 BAG IVPB SCH (23:09)
[2021-05-08 00:15] LABS: Bilirubin Negative (Negative); Blood, Urine Negative (Negative); Clarity Clear (Clear); Glucose, Urine (Dipstick) Normal (Negative); Ketone, Urine Negative (Negative); Leukocyte Negative Leu/uL (Negative); Nitrite Negative (Negative); Protein, Urine (Dipstick) Negative (Neg-Trace); RBC/HPF None Seen HPF (0-3); Specific Gravity, Urine 1.007 (1.002-1.036); Squamous Epithelial None Seen HPF (0-3); Urobilinogen Normal mg/dL (Less than 2); WBC/HPF 0-3 HPF (0-3)
[2021-05-08 00:19] LABS: Bacteria/HPF 1+ HPF (None Seen)
[2021-05-08 00:20] LABS: Urine Culture Reflex Yes Yes
[2021-05-08] MEDS: Piperacillin/Tazobactam 3.375 GM in Sodium Chloride 0.9% 100 ML IVPB SCH ×3 (01:37→16:30)
[2021-05-08] MEDS: NS 0.9% w/ 20 MEQ KCL 1,000 ML/1,000 ML BAG IV SCH (01:37)
[2021-05-08 02:11] LABS: Lactic Acid 2.1 mmol/L (0.5-2.2)
[2021-05-08] MEDS: Morphine 2 MG/ML VIAL SLOW IVP PRN (03:33)
[2021-05-08 03:59] LABS: #Eosinphils 0.1 thou/uL (0.0-0.7); #Lymphocytes 1.3 thou/uL (1.20-3.40); #Monocytes 0.2 thou/uL (0.11-0.59); #Neutrophils 1.7 thou/uL (1.40-6.50); %Basophils 0.3 % (0.0-1.0); %Eosinophils 1.5 % (0.0-10.0); %Monocytes 5.9 % (0.0-10.0); %Neutrophils 51.2 % (42.0-75.0); Hemoglobin 7.2 g/dL (14.0-18.0); Mean Corpuscular Hemoglobin 28.4 pg (27.0-31.0); Mean Corpuscular Volume 88.9 fL (78.0-98.0); Mean Platelet Volume 7.8 fL (7.4-10.4); Platelet Count 141 thou/uL (130-400); RBC Distribution Width 15.7 % (11.5-14.5); Red Blood Cell (RBC) Count 2.54 mill/uL (4.70-6.10); White Blood Cell (WBC) Count 3.2 thou/uL (4.8-10.8)
[2021-05-08 04:18] LABS: Anion Gap 13 mmol/L (10-20); BUN (Urea Nitrogen) 5 mg/dL (8.9-20.6); Calc. Creatinine Clearance 142 mL/min (70-130); Carbon Dioxide 22 mmol/L (22-29); Chloride 123 mmol/L (98-107); Glucose 121 mg/dL (70-105); Potassium 3.7 mmol/L (3.5-5.1); Sodium 154 mmol/L (136-145)
[2021-05-08] MEDS: Mometasone 200 MCG/Formoterol 5 MCG 120 PUFF INHALER INH SCH ×2 (07:02→18:24)
[2021-05-08] MEDS: Budesonide 0.5 MG/2 ML NEB NEB SCH ×2 (07:02→18:24)
[2021-05-08] MEDS: glyBURIDE 2.5 MG TAB PO SCH (08:45)
[2021-05-08] MEDS: Saccharomyces boulardii 250 MG CAP PO SCH (08:46)
[2021-05-08] MEDS: Pantoprazole 40 MG VIAL IVP SCH ×2 (08:46→20:38)
[2021-05-08] MEDS: predniSONE 20 MG TAB PO SCH (08:46)
[2021-05-08] MEDS: Enoxaparin Sodium 40 MG/0.4 ML SYRINGE SC SCH (08:46)
[2021-05-08] MEDS: Gabapentin 300 MG CAP PO SCH ×3 (08:46→20:37)
[2021-05-08] MEDS: Dextrose 5% in Water 1,000 ML IV SCH (08:47)
[2021-05-08] MEDS: Nystatin Cream 15 GM TUBE TOP SCH ×2 (10:22→21:48)
[2021-05-08] MEDS: VANCOMYCIN 1.25 GM/250 ML BAG 1.25 GM in Premix Bag 1 BAG IVPB SCH (10:54)
[2021-05-08] MEDS: HumaLOG 300 UNITS/3 ML VIAL SC PRN (17:24)
[2021-05-09] MEDS: VANCOMYCIN 1.25 GM/250 ML BAG 1.25 GM in Premix Bag 1 BAG IVPB SCH ×2 (00:25→11:40)
[2021-05-09] MEDS: Dextrose 5% in Water 1,000 ML IV SCH ×2 (00:33→10:15)
[2021-05-09] MEDS: Piperacillin/Tazobactam 3.375 GM in Sodium Chloride 0.9% 100 ML IVPB SCH ×2 (01:59→09:11)
[2021-05-09 04:19] LABS: #Lymphocytes 1.4 thou/uL (1.20-3.40); #Monocytes 0.2 thou/uL (0.11-0.59); %Basophils 0.7 % (0.0-1.0); %Eosinophils 0.4 % (0.0-10.0); %Lymphocytes 39.3 % (21.0-51.0); %Monocytes 4.5 % (0.0-10.0); Hemoglobin 7.1 g/dL (14.0-18.0); Mean Corpuscular HGB CONC 30.9 g/dL (32.0-36.0); Mean Corpuscular Hemoglobin 28.1 pg (27.0-31.0); Mean Corpuscular Volume 91.2 fL (78.0-98.0); Mean Platelet Volume 8.2 fL (7.4-10.4); Platelet Count 126 thou/uL (130-400); RBC Distribution Width 15.7 % (11.5-14.5); Red Blood Cell (RBC) Count 2.51 mill/uL (4.70-6.10); White Blood Cell (WBC) Count 3.6 thou/uL (4.8-10.8)
[2021-05-09 04:41] LABS: Anion Gap 9 mmol/L (10-20); BUN (Urea Nitrogen) 10 mg/dL (8.9-20.6); Calc. Creatinine Clearance 112 mL/min (70-130); Calcium 7.1 mg/dL (7.8-10.44); Carbon Dioxide 23 mmol/L (22-29); Chloride 117 mmol/L (98-107); Glucose 162 mg/dL (70-105); Potassium 3.5 mmol/L (3.5-5.1); Sodium 145 mmol/L (136-145)
[2021-05-09] MEDS: HumaLOG 300 UNITS/3 ML VIAL SC PRN (05:56)
[2021-05-09 07:22] VITALS: TEMP 99.3
[2021-05-09] MEDS: Enoxaparin Sodium 40 MG/0.4 ML SYRINGE SC SCH (07:40)
[2021-05-09] MEDS: Pantoprazole 40 MG VIAL IVP SCH (07:40)
[2021-05-09] MEDS: Morphine 2 MG/ML VIAL SLOW IVP PRN (07:40)
[2021-05-09] MEDS: Gabapentin 300 MG CAP PO SCH (07:41)
[2021-05-09] MEDS: Saccharomyces boulardii 250 MG CAP PO SCH (07:41)
[2021-05-09] MEDS: glyBURIDE 2.5 MG TAB PO SCH (07:41)
[2021-05-09] MEDS: predniSONE 20 MG TAB PO SCH (07:41)
[2021-05-09] MEDS: Nystatin Cream 15 GM TUBE TOP SCH (07:42)
[2021-05-09] MEDS: Potassium Chloride 20 MEQ in Premix Bag 1 BAG IVPB SCH ×2 (07:45→11:40)
[2021-05-09] MEDS: Budesonide 0.5 MG/2 ML NEB NEB SCH (08:06)
[2021-05-09] MEDS: Mometasone 200 MCG/Formoterol 5 MCG 120 PUFF INHALER INH SCH (08:07)
[2021-05-09] MEDS: Morphine 4 MG/ML VIAL SLOW IVP PRN (10:15)
[2021-05-09 10:21] LABS: Vancomycin, Trough 21.9 ug/mL
[2021-05-09] MEDS ORDERED: Vancomycin 1 GM in Premix Bag 1 BAG IVPB SCH (23:00)
[2021-05-13] MEDS ORDERED: predniSONE 20 MG TAB PO SCH (08:00)
== END 2021-05-09 15:05 | disposition home or self-care (01) | DRG 862 ==
LOC: ERS 06:06 → CCU 09:25
PROVIDERS: ADMIT Internal Medicine; ATTEND Internal Medicine
PROC: 02HV33Z Insertion of Infusion Device into Superior Vena Cava, Percutaneous Approach (ICD-10-PCS; principal; 2021-05-06)
PROC: 3E043XZ Introduction of Vasopressor into Central Vein, Percutaneous Approach (ICD-10-PCS; 2021-05-06)
PROC: 2W03X6Z Change Pressure Dressing on Abdominal Wall (ICD-10-PCS; 2021-05-09)
DX: T81.41XA Infection following a procedure, superficial incisional surgical site, initial encounter (principal); A41.9 Sepsis, unspecified organism; R65.21 Severe sepsis with septic shock; L02.211 Cutaneous abscess of abdominal wall; E44.0 Moderate protein-calorie malnutrition; J84.82 Adult pulmonary Langerhans cell histiocytosis; T81.44XA Sepsis following a procedure, initial encounter; J44.9 Chronic obstructive pulmonary disease, unspecified; J98.4 Other disorders of lung; D63.8 Anemia in other chronic diseases classified elsewhere; L30.9 Dermatitis, unspecified; E11.9 Type 2 diabetes mellitus without complications; Y83.8 Other surgical procedures as the cause of abnormal reaction of the patient, or of later complication, without mention of misadventure at the time of the procedure; Z79.899 Other long term (current) drug therapy; Z90.49 Acquired absence of other specified parts of digestive tract; Z98.890 Other specified postprocedural states; Z68.30 Body mass index [BMI] 30.0-30.9, adult; Z79.4 Long term (current) use of insulin; Z87.891 Personal history of nicotine dependence; Z93.3 Colostomy status
CPT/HCPCS: 36415; 36416; 36556; 71045; 74177; 80048; 80053; 80202; 81001; 81003; 81015; 83605; 83735; 85025; 85610; 85730; 87040; 87086; 94640; 96365; 96367; 96375; C9113; J0692; J0696; J1650; J1815; J2270; J2405; J2543; J3370; J3480; J3490; J7512; J7620; J7626; Q9967; S0028

== ENCOUNTER 2021-05-22 10:51 | Outpatient (CLI) | payer OTHER | END 2021-05-22 10:52 | disposition home or self-care (01) | LOC: PET 10:51 | PROVIDERS: ATTEND Internal Medicine Hematology & Oncology | DX: C96.0 Multifocal and multisystemic (disseminated) Langerhans-cell histiocytosis (principal) | CPT/HCPCS: 78815; A9552 ==

== ENCOUNTER 2021-08-14 08:38 | Outpatient (CLI) | payer OTHER | END 2021-08-14 08:39 | disposition home or self-care (01) | LOC: PET 08:38 | PROVIDERS: ATTEND Internal Medicine Hematology & Oncology | DX: C96.0 Multifocal and multisystemic (disseminated) Langerhans-cell histiocytosis (principal); R91.8 Other nonspecific abnormal finding of lung field; M46.1 Sacroiliitis, not elsewhere classified; R91.1 Solitary pulmonary nodule | CPT/HCPCS: 78815; A9552 ==

== ENCOUNTER 2021-09-28 04:42 | Inpatient (IN) | payer OTHER, SELFPAY ==
[2021-09-28] MEDS ORDERED: Piperacillin/Tazobactam 3.375 GM VIAL ONE (06:39)
[2021-09-28] MEDS ORDERED: Morphine 4 MG/ML VIAL ONE (07:04)
[2021-09-28 11:12] VITALS: BMI 36.5
[2021-09-28] MEDS ORDERED: traMADol HCl 50 MG TAB PO PRN (11:36)
[2021-09-28] MEDS ORDERED: Polyethylene Glycol 3350 17 GM Packet PO PRN (11:36)
[2021-09-28] MEDS ORDERED: Insulin Regular 300 UNITS/3 ML VIAL SC PRN (11:38)
[2021-09-28] MEDS ORDERED: Dextrose 5% in Water 1,000 ML IV PRN (11:38)
[2021-09-28] MEDS ORDERED: Dextrose 50% Abboject 50 ML SYRINGE SLOW IVP PRN (11:38)
[2021-09-28] MEDS ORDERED: Ondansetron PF 4 MG/2 ML Vial IVP PRN (11:38)
[2021-09-28] MEDS ORDERED: Piperacillin/Tazobactam 3.375 GM in Sodium Chloride 0.9% 100 ML IVPB SCH (12:00)
[2021-09-28] MEDS ORDERED: Albuterol 200 PUFF (6.7GM INHALER) INH PRN (12:22)
[2021-09-28] MEDS: Acetaminophen/Codeine 30-300mg Tablet PO PRN ×2 (13:32→18:31)
[2021-09-28 14:01] LABS: #Eosinphils 0.2 thou/uL (0.0-0.7); #Lymphocytes 1.6 thou/uL (1.20-3.40); #Monocytes 0.4 thou/uL (0.11-0.59); #Neutrophils 3.1 thou/uL (1.40-6.50); %Basophils 0.6 % (0.0-1.0); %Eosinophils 2.9 % (0.0-10.0); %Lymphocytes 30.2 % (21.0-51.0); %Monocytes 7.1 % (0.0-10.0); %Neutrophils 59.1 % (42.0-75.0); Hemoglobin 10.6 g/dL (14.0-18.0); Mean Corpuscular HGB CONC 31.4 g/dL (32.0-36.0); Mean Corpuscular Hemoglobin 28.5 pg (27.0-31.0); Mean Corpuscular Volume 90.9 fL (78.0-98.0); Mean Platelet Volume 7.1 fL (7.4-10.4); Platelet Count 152 thou/uL (130-400); RBC Distribution Width 14.1 % (11.5-14.5); Red Blood Cell (RBC) Count 3.72 mill/uL (4.70-6.10); White Blood Cell (WBC) Count 5.2 thou/uL (4.8-10.8)
[2021-09-28 14:20] LABS: Phosphorus 3.5 mg/dL (2.3-4.7)
[2021-09-28 14:21] LABS: Anion Gap 11 mmol/L (10-20); BUN (Urea Nitrogen) 10 mg/dL (8.9-20.6); Calc. Creatinine Clearance 117 mL/min (70-130); Calcium 8.7 mg/dL (7.8-10.44); Carbon Dioxide 30 mmol/L (22-29); Chloride 113 mmol/L (98-107); Glucose 108 mg/dL (70-105); Magnesium 2.1 mg/dL (1.6-2.6); Potassium 4.1 mmol/L (3.5-5.1); Sodium 150 mmol/L (136-145)
[2021-09-28] MEDS: Gabapentin 300 MG CAP PO SCH ×2 (15:43→20:10)
[2021-09-28] MEDS: Piperacillin/Tazobactam 3.375 GM in Sodium Chloride 0.9% 100 ML IVPB SCH (15:43)
[2021-09-28 15:55] LABS: SARS-CoV-2 PCR by NAA Not Detected (NotDetected)
[2021-09-28] MEDS: Acetaminophen 500 MG TAB PO PRN (17:05)
[2021-09-28] MEDS: traMADol HCl 50 MG TAB PO SCH (17:48)
[2021-09-28] MEDS: Mometasone 200 MCG/Formoterol 5 MCG 120 PUFF INHALER INH SCH (18:26)
[2021-09-28] MEDS: Scopolamine 1.5 mg/72 hour Patch TD SCH (20:08)
[2021-09-28] MEDS: Morphine 4 MG/ML VIAL SLOW IVP PRN (20:11)
[2021-09-28] MEDS: D5 1/2 NS w/10 mEq KCl 1,000 ML/1,000 ML BAG IV SCH (20:16)
[2021-09-29] MEDS: traMADol HCl 50 MG TAB PO SCH ×5 (00:28→23:54)
[2021-09-29] MEDS: Piperacillin/Tazobactam 3.375 GM in Sodium Chloride 0.9% 100 ML IVPB SCH ×4 (00:29→23:53)
[2021-09-29] MEDS: Morphine 4 MG/ML VIAL SLOW IVP PRN (03:21)
[2021-09-29] MEDS: Mometasone 200 MCG/Formoterol 5 MCG 120 PUFF INHALER INH SCH ×2 (06:44→19:00)
[2021-09-29 06:48] LABS: #Eosinphils 0.1 thou/uL (0.0-0.7); #Lymphocytes 1.8 thou/uL (1.20-3.40); #Monocytes 0.4 thou/uL (0.11-0.59); #Neutrophils 2.9 thou/uL (1.40-6.50); %Basophils 0.3 % (0.0-1.0); %Eosinophils 2.2 % (0.0-10.0); %Lymphocytes 35.2 % (21.0-51.0); %Monocytes 6.7 % (0.0-10.0); %Neutrophils 55.7 % (42.0-75.0); Hemoglobin 9.9 g/dL (14.0-18.0); Mean Corpuscular HGB CONC 32.3 g/dL (32.0-36.0); Mean Corpuscular Hemoglobin 29.3 pg (27.0-31.0); Mean Corpuscular Volume 90.6 fL (78.0-98.0); Mean Platelet Volume 6.9 fL (7.4-10.4); Platelet Count 143 thou/uL (130-400); RBC Distribution Width 14.1 % (11.5-14.5); Red Blood Cell (RBC) Count 3.39 mill/uL (4.70-6.10); White Blood Cell (WBC) Count 5.2 thou/uL (4.8-10.8)
[2021-09-29 07:04] LABS: Phosphorus 3.7 mg/dL (2.3-4.7)
[2021-09-29 07:07] LABS: Anion Gap 10 mmol/L (10-20); BUN (Urea Nitrogen) 9 mg/dL (8.9-20.6); Calc. Creatinine Clearance 120 mL/min (70-130); Calcium 8.5 mg/dL (7.8-10.44); Carbon Dioxide 30 mmol/L (22-29); Chloride 112 mmol/L (98-107); Glucose 112 mg/dL (70-105); Magnesium 2.2 mg/dL (1.6-2.6); Potassium 3.6 mmol/L (3.5-5.1); Sodium 148 mmol/L (136-145)
[2021-09-29] MEDS ORDERED: Potassium Phosphate 30 MMOL in Sodium Chloride 0.9% 250 ML 250 ML IVPB SCH (07:30)
[2021-09-29] MEDS: Desmopressin Acetate 0.01% Nasal Solution NASAL SCH (09:10)
[2021-09-29] MEDS: Gabapentin 300 MG CAP PO SCH ×3 (09:13→20:39)
[2021-09-29] MEDS: Saccharomyces boulardii 250 MG CAP PO SCH (09:14)
[2021-09-29] MEDS: glyBURIDE 5 MG TAB PO SCH (09:14)
[2021-09-29] MEDS: Pantoprazole 40 MG VIAL IVP SCH (10:05)
[2021-09-29] MEDS ORDERED: Nystatin Powder 15 GM BOT TOP PRN (11:47)
[2021-09-29] MEDS: Acetaminophen/Codeine 30-300mg Tablet PO PRN (20:41)
[2021-09-29] MEDS: Nystatin Cream 15 GM TUBE TOP SCH (22:23)
[2021-09-29] MEDS: D5 1/2 NS w/10 mEq KCl 1,000 ML/1,000 ML BAG IV SCH ×2 (22:24→22:25)
[2021-09-30] MEDS: traMADol HCl 50 MG TAB PO SCH ×3 (05:12→17:35)
[2021-09-30] MEDS: Acetaminophen 500 MG TAB PO PRN (05:13)
[2021-09-30] MEDS ORDERED: Nitroglycerin 0.4 MG TAB (25 Tab Bottle) ONE (05:51)
[2021-09-30 06:08] LABS: #Eosinphils 0.1 thou/uL (0.0-0.7); #Lymphocytes 1.4 thou/uL (1.20-3.40); #Monocytes 0.3 thou/uL (0.11-0.59); #Neutrophils 4.1 thou/uL (1.40-6.50); %Eosinophils 1.2 % (0.0-10.0); %Lymphocytes 23.6 % (21.0-51.0); %Monocytes 4.8 % (0.0-10.0); %Neutrophils 70.4 % (42.0-75.0); Hemoglobin 9.7 g/dL (14.0-18.0); Mean Corpuscular HGB CONC 31.7 g/dL (32.0-36.0); Mean Corpuscular Hemoglobin 28.7 pg (27.0-31.0); Mean Corpuscular Volume 90.6 fL (78.0-98.0); Mean Platelet Volume 6.7 fL (7.4-10.4); Platelet Count 146 thou/uL (130-400); RBC Distribution Width 14.2 % (11.5-14.5); Red Blood Cell (RBC) Count 3.37 mill/uL (4.70-6.10); White Blood Cell (WBC) Count 5.8 thou/uL (4.8-10.8)
[2021-09-30] MEDS ORDERED: Nitroglycerin 0.4 MG TAB (25 Tab Bottle) SL PRN (06:08)
[2021-09-30] MEDS ORDERED: Nitroglycerin 0.4 MG TAB (25 Tab Bottle) SL SCH (06:15)
[2021-09-30 06:27] LABS: Anion Gap 11 mmol/L (10-20); BUN (Urea Nitrogen) 9 mg/dL (8.9-20.6); Calc. Creatinine Clearance 117 mL/min (70-130); Calcium 7.7 mg/dL (7.8-10.44); Carbon Dioxide 26 mmol/L (22-29); Chloride 106 mmol/L (98-107); Glucose 149 mg/dL (70-105); Magnesium 1.6 mg/dL (1.6-2.6); Phosphorus 2.7 mg/dL (2.3-4.7); Potassium 3.2 mmol/L (3.5-5.1); Sodium 140 mmol/L (136-145)
[2021-09-30 06:28] LABS: Troponin I Less than 0.010 ng/mL (< 0.028)
[2021-09-30] MEDS: predniSONE 20 MG TAB PO SCH (07:49)
[2021-09-30] MEDS: Mometasone 200 MCG/Formoterol 5 MCG 120 PUFF INHALER INH SCH ×2 (07:50→19:24)
[2021-09-30] MEDS: Pantoprazole 40 MG VIAL IVP SCH (08:38)
[2021-09-30] MEDS: Piperacillin/Tazobactam 3.375 GM in Sodium Chloride 0.9% 100 ML IVPB SCH ×2 (08:38→15:54)
[2021-09-30] MEDS: Desmopressin Acetate 0.01% Nasal Solution NASAL SCH (08:39)
[2021-09-30] MEDS: Saccharomyces boulardii 250 MG CAP PO SCH (08:40)
[2021-09-30] MEDS: Gabapentin 300 MG CAP PO SCH ×3 (08:40→22:10)
[2021-09-30 09:45] LABS: Troponin I Less than 0.010 ng/mL (< 0.028)
[2021-09-30] MEDS: Aspirin Chewable 81 MG TAB PO SCH (09:58)
[2021-09-30] MEDS: Nystatin Cream 15 GM TUBE TOP SCH ×2 (09:59→22:13)
[2021-09-30] MEDS ORDERED: Enoxaparin Sodium 40 MG/0.4 ML SYRINGE SC SCH ×2 (10:15→21:00)
[2021-09-30] MEDS ORDERED: Potassium Chloride 20 MEQ TAB PO SCH (10:30)
[2021-09-30] MEDS: Pioglitazone HCl 45 MG TAB PO SCH (11:38)
[2021-09-30] MEDS: glyBURIDE 5 MG TAB PO SCH (11:38)
[2021-09-30 12:31] LABS: Troponin I Less than 0.010 ng/mL (< 0.028)
[2021-09-30] MEDS: D5 1/2 NS w/10 mEq KCl 1,000 ML/1,000 ML BAG IV SCH (17:34)
[2021-09-30] MEDS ORDERED: Enoxaparin Sodium 80 MG/0.8 ML SYRINGE SC SCH (21:00)
[2021-10-01] MEDS: Piperacillin/Tazobactam 3.375 GM in Sodium Chloride 0.9% 100 ML IVPB SCH ×2 (00:01→08:39)
[2021-10-01] MEDS: traMADol HCl 50 MG TAB PO SCH ×4 (00:05→17:40)
[2021-10-01] MEDS ORDERED: Communication Order-Pharmacy FS SCH (05:00)
[2021-10-01] MEDS: D5 1/2 NS w/10 mEq KCl 1,000 ML/1,000 ML BAG IV SCH (06:15)
[2021-10-01] MEDS: Mometasone 200 MCG/Formoterol 5 MCG 120 PUFF INHALER INH SCH ×2 (06:52→18:23)
[2021-10-01] MEDS: glyBURIDE 5 MG TAB PO SCH (08:40)
[2021-10-01] MEDS: predniSONE 20 MG TAB PO SCH (08:41)
[2021-10-01] MEDS: Gabapentin 300 MG CAP PO SCH ×3 (08:41→20:44)
[2021-10-01] MEDS: Nystatin Cream 15 GM TUBE TOP SCH ×2 (08:41→20:45)
[2021-10-01] MEDS: Aspirin Chewable 81 MG TAB PO SCH (08:41)
[2021-10-01] MEDS: Pantoprazole 40 MG VIAL IVP SCH (08:42)
[2021-10-01] MEDS: Saccharomyces boulardii 250 MG CAP PO SCH (08:42)
[2021-10-01] MEDS: Pioglitazone HCl 45 MG TAB PO SCH (08:42)
[2021-10-01] MEDS ORDERED: Iopamidol 370 76% 100 ML VIAL ONE (09:23)
[2021-10-01] MEDS ORDERED: Heparin 10,000 UNITS/ 10 ML VIAL ONE (11:17)
[2021-10-01] MEDS ORDERED: Verapamil 5 MG/2 ML VIAL ONE (11:17)
[2021-10-01] MEDS ORDERED: Nitroglycerin 100MG/250ML BOT 250 ML ONE (11:17)
[2021-10-01] MEDS ORDERED: Midazolam HCl 2 mg/2 ml Vial ONE (11:52)
[2021-10-01] MEDS ORDERED: Fentanyl 100 MCG/2 ML VIAL ONE (11:52)
[2021-10-01] MEDS ORDERED: Acetaminophen/Codeine 30-300mg Tablet PO PRN ×2 (13:30)
[2021-10-01] MEDS ORDERED: Nitroglycerin 0.4 MG TAB (25 Tab Bottle) SL PRN (13:30)
[2021-10-01] MEDS ORDERED: Sodium Chloride 0.9% 200 ML IV PRN (13:30)
[2021-10-01] MEDS ORDERED: Sodium Chloride 0.9% 1,000 ML IV SCH (13:30)
[2021-10-01] MEDS: Scopolamine 1.5 mg/72 hour Patch TD SCH (17:41)
[2021-10-01 20:37] VITALS: BP 94/60; TEMP 98.2
[2021-10-02] MEDS ORDERED: Aspirin Chewable 81 MG TAB PO SCH (09:00)
[2021-10-05] MEDS ORDERED: predniSONE 20 MG TAB PO SCH (08:00)
== END 2021-10-01 21:58 | disposition home or self-care (01) | DRG 920 ==
LOC: ERS 04:42 → SURG A 05:52 → OBSVTOIN 09-29 11:46
PROVIDERS: ADMIT Surgery; ATTEND Specialist
PROC: 4A023N7 Measurement of Cardiac Sampling and Pressure, Left Heart, Percutaneous Approach (ICD-10-PCS; principal; 2021-10-01)
PROC: B2111ZZ Fluoroscopy of Multiple Coronary Arteries using Low Osmolar Contrast (ICD-10-PCS; 2021-10-01)
DX: K91.872 Postprocedural seroma of a digestive system organ or structure following a digestive system procedure (principal); K56.7 Ileus, unspecified; I25.110 Atherosclerotic heart disease of native coronary artery with unstable angina pectoris; J84.82 Adult pulmonary Langerhans cell histiocytosis; Z20.828 Contact with and (suspected) exposure to other viral communicable diseases; E11.9 Type 2 diabetes mellitus without complications; Y83.8 Other surgical procedures as the cause of abnormal reaction of the patient, or of later complication, without mention of misadventure at the time of the procedure; Z79.84 Long term (current) use of oral hypoglycemic drugs; Z90.49 Acquired absence of other specified parts of digestive tract; Z98.890 Other specified postprocedural states; Z87.891 Personal history of nicotine dependence
CPT/HCPCS: 36415; 36416; 74018; 80048; 83735; 84100; 84484; 85025; 87040; 93005; 93010; 93306; 93458; 96365; 96375; 96376; C9113; G0378; J1644; J1650; J1815; J2250; J2270; J2405; J2543; J3010; J3480; J3490; J7050; J7512; Q9967; U0003; U0005

== ENCOUNTER 2021-11-13 08:49 | Outpatient (CLI) | payer OTHER | END 2021-11-13 08:50 | disposition home or self-care (01) | LOC: PET 08:49 | PROVIDERS: ATTEND Internal Medicine Hematology & Oncology | DX: C96.0 Multifocal and multisystemic (disseminated) Langerhans-cell histiocytosis (principal) | CPT/HCPCS: 78815; A9552 ==

== ENCOUNTER 2022-03-13 09:30 | Outpatient (CLI) | payer OTHER | END 2022-03-13 09:31 | disposition home or self-care (01) | LOC: PET 09:30 | PROVIDERS: ATTEND Internal Medicine Hematology & Oncology | DX: C96.0 Multifocal and multisystemic (disseminated) Langerhans-cell histiocytosis (principal); D51.3 Other dietary vitamin B12 deficiency anemia; D70.8 Other neutropenia; D50.0 Iron deficiency anemia secondary to blood loss (chronic) | CPT/HCPCS: 78815; A9552 ==

== ENCOUNTER 2022-04-06 12:46 | Outpatient (CLI) | payer OTHER | END 2022-04-06 12:47 | disposition home or self-care (01) | LOC: BICRAD 12:46 | PROVIDERS: ATTEND Internal Medicine Hematology & Oncology | DX: D51.3 Other dietary vitamin B12 deficiency anemia (principal); D50.0 Iron deficiency anemia secondary to blood loss (chronic); C96.0 Multifocal and multisystemic (disseminated) Langerhans-cell histiocytosis; D70.8 Other neutropenia ==

== ENCOUNTER 2022-06-11 09:30 | Outpatient (CLI) | payer OTHER | END 2022-06-11 09:31 | disposition home or self-care (01) | LOC: PET 09:30 | PROVIDERS: ATTEND Internal Medicine Hematology & Oncology | DX: C96.0 Multifocal and multisystemic (disseminated) Langerhans-cell histiocytosis (principal); D51.3 Other dietary vitamin B12 deficiency anemia | CPT/HCPCS: 78815; A9552 ==

== ENCOUNTER 2022-09-26 19:00 | Inpatient (IN) | payer OTHER ==
[2022-09-26 22:48] VITALS: BMI 32.8
[2022-09-26] MEDS ORDERED: HumaLOG 300 UNITS/3 ML VIAL SC PRN (23:05)
[2022-09-26] MEDS ORDERED: Dextrose 5% in Water 1,000 ML IV PRN (23:05)
[2022-09-26] MEDS ORDERED: Dextrose 50% Abboject 50 ML SYRINGE SLOW IVP PRN (23:05)
[2022-09-26] MEDS ORDERED: Ondansetron ODT 4 MG TAB PO PRN (23:05)
[2022-09-26] MEDS ORDERED: Ondansetron PF 4 MG/2 ML Vial IVP PRN (23:05)
[2022-09-26 23:22] LABS: #Eosinphils 0.1 thou/uL (0.0-0.7); #Lymphocytes 2.1 thou/uL (1.20-3.40); #Monocytes 0.3 thou/uL (0.11-0.59); #Neutrophils 3.2 thou/uL (1.40-6.50); %Basophils 0.1 % (0.0-1.0); %Monocytes 5.4 % (0.0-10.0); %Neutrophils 56.5 % (42.0-75.0); Hemoglobin 9.2 g/dL (14.0-18.0); Mean Corpuscular Hemoglobin 27.3 pg (27.0-31.0); Mean Corpuscular Volume 90.9 fl (78.0-98.0); Mean Platelet Volume 7.4 fL (7.4-10.4); Platelet Count 156 10x3/uL (130-400); RBC Distribution Width 14.1 % (11.5-14.5); Red Blood Cell (RBC) Count 3.38 mill/uL (4.70-6.10); White Blood Cell (WBC) Count 5.6 10x3/uL (4.8-10.8)
[2022-09-26 23:31] LABS: SARS-CoV-2 NAA Rapid Test DETECTED (NotDetected)
[2022-09-26 23:42] LABS: Anion Gap 13 mmol/L (10-20); BUN (Urea Nitrogen) 9 mg/dL (8.4-25.7); Calc. Creatinine Clearance 110 mL/min (70-130); Calcium 8.1 mg/dL (7.8-10.44); Carbon Dioxide 32 mmol/L (22-29); Chloride 96 mmol/L (98-107); Estimated GFR 79; Glucose 225 mg/dL (70-105); Magnesium 1.6 mg/dL (1.6-2.6); Potassium 3.3 mmol/L (3.5-5.1); Sodium 138 mmol/L (136-145)
[2022-09-26] MEDS ORDERED: Albuterol 200 PUFF (6.7GM INHALER) INH PRN (23:45)
[2022-09-26] MEDS ORDERED: Benzonatate 100 MG CAP PO PRN (23:47)
[2022-09-27 00:11] LABS: SARS-CoV-2 NAA Rapid Test DETECTED (NotDetected)
[2022-09-27] MEDS ORDERED: Magnesium 2 GM/50 ML(in water) 2 GM in Premix Bag 1 BAG IVPB SCH (00:15)
[2022-09-27] MEDS ORDERED: Electrolyte Replacement Protocol 1 EACH FS SCH (00:15)
[2022-09-27] MEDS ORDERED: Dexamethasone 10 MG/ML VIAL SLOW IVP SCH (00:30)
[2022-09-27] MEDS ORDERED: VANCOMYCIN 2 GRAM/500 ML BAG 2 GM in Premix Bag 1 BAG IVPB SCH (01:00)
[2022-09-27] MEDS: Potassium Chloride 20 MEQ in Premix Bag 1 BAG IVPB SCH ×2 (01:00→03:05)
[2022-09-27 01:17] LABS: Troponin I Less than 0.010 ng/mL (< 0.028)
[2022-09-27] MEDS: HumaLOG 300 UNITS/3 ML VIAL SC PRN ×3 (05:43→21:41)
[2022-09-27] MEDS: Mometasone/Formoterol 200/5 60 PUFF INH SCH ×2 (05:44→17:30)
[2022-09-27] MEDS ORDERED: Electrolyte Replacement Protocol FS PRN (07:44)
[2022-09-27 09:38] LABS: Magnesium 2.4 mg/dL (1.6-2.6); Potassium 4.1 mmol/L (3.5-5.1)
[2022-09-27] MEDS ORDERED: Sodium Chloride 0.9% 250 ML IV SCH (10:00)
[2022-09-27 10:23] LABS: Prothrombin Time 13.4 sec (12.0-14.7)
[2022-09-27 10:24] LABS: Fibrinogen 615 mg/dL (253-463); PTT 35.4 sec (22.9-36.1); Platelet Count 190 10x3/uL (130-400)
[2022-09-27] MEDS: Atorvastatin Calcium 20 MG TAB PO SCH (10:24)
[2022-09-27] MEDS: predniSONE 5 MG TAB PO SCH (10:24)
[2022-09-27] MEDS: Cyanocobalamin (Vitamin B-12) 1,000 MCG TAB PO SCH (10:24)
[2022-09-27] MEDS: Pantoprazole 40 MG VIAL IVP SCH (10:24)
[2022-09-27] MEDS: Cholecalciferol 1,000 UNITS (25 MCG) TAB PO SCH (10:25)
[2022-09-27] MEDS: Folic Acid 1 MG TAB PO SCH (10:25)
[2022-09-27 10:26] LABS: D-Dimer Test 1.21 *mcg/mL (0.27-0.43)
[2022-09-27] MEDS: HumuLIN 70/30 (300 UNITS/3 ML VIAL) SC SCH ×2 (10:26→21:42)
[2022-09-27] MEDS: Dexamethasone 10 MG/ML VIAL SLOW IVP SCH ×2 (10:29→21:43)
[2022-09-27 10:33] LABS: ALT (SGPT) 15 U/L (8-55); AST (SGOT) 24 U/L (5-34); Albumin 3.3 g/dL (3.5-5.0); Alkaline Phosphatase 132 U/L (40-110); Bilirubin, Direct 0.2 mg/dL (0.1-0.3); Bilirubin, Total 0.3 mg/dL (0.2-1.2); Protein, Total 8.8 g/dL (6.0-8.3)
[2022-09-27] MEDS ORDERED: Iopamidol-370 76% 500 ML 1 ML ONE (13:49)
[2022-09-27] MEDS: Vancomycin 1 GM in Premix Bag 1 BAG IVPB SCH (16:42)
[2022-09-27] MEDS ORDERED: Insulin Glargine 30 UNITS/0.3 ML VIAL SC SCH (21:00)
[2022-09-28] MEDS: Vancomycin 1 GM in Premix Bag 1 BAG IVPB SCH ×2 (02:02→13:47)
[2022-09-28 05:44] LABS: ALT (SGPT) 19 U/L (8-55); AST (SGOT) 31 U/L (5-34); Albumin 2.9 g/dL (3.5-5.0); Alkaline Phosphatase 111 U/L (40-110); Anion Gap 11 mmol/L (10-20); BUN (Urea Nitrogen) 14 mg/dL (8.4-25.7); Bilirubin, Total 0.2 mg/dL (0.2-1.2); Calc. Creatinine Clearance 120 mL/min (70-130); Calcium 8.6 mg/dL (7.8-10.44); Carbon Dioxide 29 mmol/L (22-29); Chloride 100 mmol/L (98-107); Estimated GFR 87; Globulin 4.5 g/dL (2.4-3.5); Magnesium 2.2 mg/dL (1.6-2.6); Phosphorus 2.7 mg/dL (2.3-4.7); Potassium 4.5 mmol/L (3.5-5.1); Protein, Total 7.4 g/dL (6.0-8.3); Sodium 135 mmol/L (136-145)
[2022-09-28 05:45] LABS: #Lymphocytes 0.8 thou/uL (1.20-3.40); #Monocytes 0.1 thou/uL (0.11-0.59); #Neutrophils 3.1 thou/uL (1.40-6.50); %Basophils 0.2 % (0.0-1.0); %Lymphocytes 20.5 % (21.0-51.0); %Monocytes 2.1 % (0.0-10.0); %Neutrophils 77.2 % (42.0-75.0); Hemoglobin 8.6 g/dL (14.0-18.0); Mean Corpuscular HGB CONC 29.8 g/dL (32.0-36.0); Mean Corpuscular Hemoglobin 27.6 pg (27.0-31.0); Mean Corpuscular Volume 92.5 fl (78.0-98.0); Mean Platelet Volume 7.6 fL (7.4-10.4); Platelet Count 165 10x3/uL (130-400); RBC Distribution Width 14.1 % (11.5-14.5); Red Blood Cell (RBC) Count 3.12 mill/uL (4.70-6.10)
[2022-09-28 05:50] LABS: Glucose 407 mg/dL (70-105)
[2022-09-28] MEDS: HumaLOG 300 UNITS/3 ML VIAL SC PRN ×2 (06:33→17:14)
[2022-09-28] MEDS: Cyanocobalamin (Vitamin B-12) 1,000 MCG TAB PO SCH (10:07)
[2022-09-28] MEDS: Cholecalciferol 1,000 UNITS (25 MCG) TAB PO SCH (10:07)
[2022-09-28] MEDS: Folic Acid 1 MG TAB PO SCH (10:08)
[2022-09-28] MEDS: predniSONE 5 MG TAB PO SCH (10:09)
[2022-09-28] MEDS: Dexamethasone 10 MG/ML VIAL SLOW IVP SCH ×2 (10:09→21:34)
[2022-09-28] MEDS: Atorvastatin Calcium 20 MG TAB PO SCH (10:09)
[2022-09-28] MEDS: Pantoprazole 40 MG VIAL IVP SCH (10:10)
[2022-09-28] MEDS: HumuLIN 70/30 (300 UNITS/3 ML VIAL) SC SCH ×2 (10:10→21:34)
[2022-09-28 12:47] LABS: Iron 27 ug/dL (65-175); Iron Binding Capacity, Total 376 mcg/dL (261-462)
[2022-09-28 13:32] LABS: Vancomycin, Trough 16.4 ug/mL
[2022-09-28] MEDS: Acetaminophen 325 MG TAB PO PRN (17:13)
[2022-09-28] MEDS ORDERED: Insulin Glargine 30 UNITS/0.3 ML VIAL SC SCH ×2 (21:00)
[2022-09-28] MEDS: Hydrocortisone 1% Cream 30 GM TUBE TOP SCH (21:34)
[2022-09-28] MEDS: Mometasone/Formoterol 200/5 60 PUFF INH SCH (23:06)
[2022-09-29 05:41] LABS: #Lymphocytes 0.7 thou/uL (1.20-3.40); #Monocytes 0.2 thou/uL (0.11-0.59); #Neutrophils 3.8 thou/uL (1.40-6.50); %Basophils 0.2 % (0.0-1.0); %Lymphocytes 14.7 % (21.0-51.0); %Monocytes 3.1 % (0.0-10.0); Mean Corpuscular HGB CONC 31.2 g/dL (32.0-36.0); Mean Corpuscular Hemoglobin 29.1 pg (27.0-31.0); Mean Corpuscular Volume 93.3 fl (78.0-98.0); Mean Platelet Volume 7.7 fL (7.4-10.4); Platelet Count 170 10x3/uL (130-400); RBC Distribution Width 14.2 % (11.5-14.5); Red Blood Cell (RBC) Count 3.08 mill/uL (4.70-6.10); White Blood Cell (WBC) Count 4.7 10x3/uL (4.8-10.8)
[2022-09-29] MEDS: Mometasone/Formoterol 200/5 60 PUFF INH SCH ×2 (05:57→22:45)
[2022-09-29 06:11] LABS: ALT (SGPT) 20 U/L (8-55); AST (SGOT) 26 U/L (5-34); Albumin 2.7 g/dL (3.5-5.0); Alkaline Phosphatase 115 U/L (40-110); Anion Gap 11 mmol/L (10-20); BUN (Urea Nitrogen) 19 mg/dL (8.4-25.7); Bilirubin, Total 0.2 mg/dL (0.2-1.2); Calc. Creatinine Clearance 122 mL/min (70-130); Calcium 8.3 mg/dL (7.8-10.44); Carbon Dioxide 28 mmol/L (22-29); Chloride 98 mmol/L (98-107); Estimated GFR 89; Globulin 4.1 g/dL (2.4-3.5); Potassium 4.5 mmol/L (3.5-5.1); Protein, Total 6.8 g/dL (6.0-8.3); Sodium 132 mmol/L (136-145)
[2022-09-29 06:14] LABS: Glucose 491 mg/dL (70-105)
[2022-09-29] MEDS: HumaLOG 300 UNITS/3 ML VIAL SC PRN ×4 (06:30→22:50)
[2022-09-29 07:36] LABS: Hemoglobin A1c 12.7 % (4.0-6.0)
[2022-09-29] MEDS ORDERED: FLU VACC QS2022-23(6MOS UP)/PF 60 MCG/0.5 ML SYRINGE IM ONE (09:00)
[2022-09-29] MEDS: Folic Acid 1 MG TAB PO SCH (09:21)
[2022-09-29] MEDS: Cyanocobalamin (Vitamin B-12) 1,000 MCG TAB PO SCH (09:21)
[2022-09-29] MEDS: Cholecalciferol 1,000 UNITS (25 MCG) TAB PO SCH (09:21)
[2022-09-29] MEDS: Dexamethasone 10 MG/ML VIAL SLOW IVP SCH ×2 (09:21→22:47)
[2022-09-29] MEDS: HumuLIN 70/30 (300 UNITS/3 ML VIAL) SC SCH ×2 (09:21→22:49)
[2022-09-29] MEDS: Atorvastatin Calcium 20 MG TAB PO SCH (09:22)
[2022-09-29] MEDS: Pantoprazole 40 MG VIAL IVP SCH (09:22)
[2022-09-29] MEDS: Hydrocortisone 1% Cream 30 GM TUBE TOP SCH ×2 (11:05→22:54)
[2022-09-29] MEDS ORDERED: Insulin Glargine 30 UNITS/0.3 ML VIAL SC SCH (21:00)
[2022-09-30] MEDS: Acetaminophen 325 MG TAB PO PRN (02:54)
[2022-09-30] MEDS: Mometasone/Formoterol 200/5 60 PUFF INH SCH ×2 (06:26→19:32)
[2022-09-30] MEDS: HumaLOG 300 UNITS/3 ML VIAL SC PRN ×3 (06:28→21:46)
[2022-09-30] MEDS: Atorvastatin Calcium 20 MG TAB PO SCH (09:17)
[2022-09-30] MEDS: Cyanocobalamin (Vitamin B-12) 1,000 MCG TAB PO SCH (09:18)
[2022-09-30] MEDS: Cholecalciferol 1,000 UNITS (25 MCG) TAB PO SCH (09:18)
[2022-09-30] MEDS: Folic Acid 1 MG TAB PO SCH (09:19)
[2022-09-30] MEDS: Dexamethasone 10 MG/ML VIAL SLOW IVP SCH ×2 (09:19→21:45)
[2022-09-30] MEDS: HumuLIN 70/30 (300 UNITS/3 ML VIAL) SC SCH (09:20)
[2022-09-30] MEDS: Hydrocortisone 1% Cream 30 GM TUBE TOP SCH ×2 (09:21→21:45)
[2022-09-30] MEDS: Pantoprazole 40 MG VIAL IVP SCH (09:21)
[2022-09-30 11:05] LABS: #Lymphocytes 0.6 thou/uL (1.20-3.40); #Monocytes 0.2 thou/uL (0.11-0.59); #Neutrophils 2.8 thou/uL (1.40-6.50); %Eosinophils 0.4 % (0.0-10.0); %Lymphocytes 15.7 % (21.0-51.0); %Monocytes 5.8 % (0.0-10.0); Hemoglobin 9.7 g/dL (14.0-18.0); Mean Corpuscular HGB CONC 29.8 g/dL (32.0-36.0); Mean Corpuscular Hemoglobin 27.5 pg (27.0-31.0); Mean Corpuscular Volume 92.3 fl (78.0-98.0); Mean Platelet Volume 7.7 fL (7.4-10.4); Platelet Count 178 10x3/uL (130-400); RBC Distribution Width 14.3 % (11.5-14.5); Red Blood Cell (RBC) Count 3.52 mill/uL (4.70-6.10); White Blood Cell (WBC) Count 3.6 10x3/uL (4.8-10.8)
[2022-09-30 11:26] LABS: ALT (SGPT) 22 U/L (8-55); AST (SGOT) 19 U/L (5-34); Albumin 2.9 g/dL (3.5-5.0); Alkaline Phosphatase 104 U/L (40-110); Anion Gap 10 mmol/L (10-20); BUN (Urea Nitrogen) 22 mg/dL (8.4-25.7); Bilirubin, Total Less than 0.2 mg/dL (0.2-1.2); Calc. Creatinine Clearance 131 mL/min (70-130); Calcium 8.5 mg/dL (7.8-10.44); Carbon Dioxide 31 mmol/L (22-29); Chloride 100 mmol/L (98-107); Estimated GFR 97; Globulin 4.1 g/dL (2.4-3.5); Glucose 383 mg/dL (70-105); Potassium 4.2 mmol/L (3.5-5.1); Sodium 137 mmol/L (136-145)
[2022-09-30 11:49] LABS: MDiff Complete? YES; Platelet Morphology Comment Appears Adequate; Polychromasia SLIGHT = 2-3 cells (100X) (0-2/hpf)
[2022-09-30] MEDS ORDERED: HumuLIN 70/30 (300 UNITS/3 ML VIAL) SC SCH (18:45)
[2022-09-30] MEDS: Ferrous Sulfate 325 MG TAB PO SCH (19:22)
[2022-09-30] MEDS: Insulin Glargine 30 UNITS/0.3 ML VIAL SC SCH (21:45)
[2022-10-01 04:50] LABS: #Lymphocytes 0.7 thou/uL (1.20-3.40); #Monocytes 0.2 thou/uL (0.11-0.59); #Neutrophils 2.6 thou/uL (1.40-6.50); %Basophils 0.5 % (0.0-1.0); %Eosinophils 0.2 % (0.0-10.0); %Lymphocytes 20.4 % (21.0-51.0); %Monocytes 5.4 % (0.0-10.0); %Neutrophils 73.6 % (42.0-75.0); Mean Corpuscular HGB CONC 30.3 g/dL (32.0-36.0); Mean Corpuscular Hemoglobin 27.5 pg (27.0-31.0); Mean Corpuscular Volume 90.8 fl (78.0-98.0); Mean Platelet Volume 7.8 fL (7.4-10.4); Platelet Count 177 10x3/uL (130-400); RBC Distribution Width 14.4 % (11.5-14.5); Red Blood Cell (RBC) Count 3.64 mill/uL (4.70-6.10); White Blood Cell (WBC) Count 3.5 10x3/uL (4.8-10.8)
[2022-10-01 05:23] LABS: ALT (SGPT) 22 U/L (8-55); AST (SGOT) 17 U/L (5-34); Albumin 2.9 g/dL (3.5-5.0); Alkaline Phosphatase 103 U/L (40-110); Anion Gap 12 mmol/L (10-20); BUN (Urea Nitrogen) 20 mg/dL (8.4-25.7); Bilirubin, Total 0.2 mg/dL (0.2-1.2); Calc. Creatinine Clearance 135 mL/min (70-130); Calcium 8.3 mg/dL (7.8-10.44); Carbon Dioxide 29 mmol/L (22-29); Chloride 103 mmol/L (98-107); Estimated GFR 101; Globulin 3.9 g/dL (2.4-3.5); Glucose 276 mg/dL (70-105); Magnesium 2.1 mg/dL (1.6-2.6); Phosphorus 3.2 mg/dL (2.3-4.7); Potassium 3.8 mmol/L (3.5-5.1); Protein, Total 6.8 g/dL (6.0-8.3); Sodium 140 mmol/L (136-145)
[2022-10-01] MEDS: Mometasone/Formoterol 200/5 60 PUFF INH SCH ×2 (06:45→17:39)
[2022-10-01] MEDS: HumaLOG 300 UNITS/3 ML VIAL SC PRN ×4 (06:45→22:09)
[2022-10-01] MEDS: Ferrous Sulfate 325 MG TAB PO SCH ×2 (09:59→15:58)
[2022-10-01] MEDS: Cholecalciferol 1,000 UNITS (25 MCG) TAB PO SCH (09:59)
[2022-10-01] MEDS: Atorvastatin Calcium 20 MG TAB PO SCH (10:00)
[2022-10-01] MEDS: Folic Acid 1 MG TAB PO SCH (10:00)
[2022-10-01] MEDS: Cyanocobalamin (Vitamin B-12) 1,000 MCG TAB PO SCH (10:00)
[2022-10-01] MEDS: Dexamethasone 10 MG/ML VIAL SLOW IVP SCH (10:00)
[2022-10-01] MEDS: Pantoprazole 40 MG VIAL IVP SCH (10:03)
[2022-10-01] MEDS: Hydrocortisone 1% Cream 30 GM TUBE TOP SCH ×2 (10:03→22:05)
[2022-10-01] MEDS: HumuLIN 70/30 (300 UNITS/3 ML VIAL) SC SCH ×2 (10:04→22:08)
[2022-10-01] MEDS: Insulin Glargine 30 UNITS/0.3 ML VIAL SC SCH (22:06)
[2022-10-02] MEDS: Mometasone/Formoterol 200/5 60 PUFF INH SCH ×2 (06:25→18:23)
[2022-10-02] MEDS ORDERED: Dexamethasone 10 MG/ML VIAL SLOW IVP SCH (09:00)
[2022-10-02] MEDS: Dexamethasone 4 MG TAB PO SCH (09:11)
[2022-10-02] MEDS: Ferrous Sulfate 325 MG TAB PO SCH ×2 (09:13→16:19)
[2022-10-02] MEDS: Aspirin Chewable 81 MG TAB PO SCH (09:14)
[2022-10-02] MEDS: Atorvastatin Calcium 20 MG TAB PO SCH (09:14)
[2022-10-02] MEDS: Cholecalciferol 1,000 UNITS (25 MCG) TAB PO SCH (09:15)
[2022-10-02] MEDS: Cyanocobalamin (Vitamin B-12) 1,000 MCG TAB PO SCH (09:16)
[2022-10-02] MEDS: Folic Acid 1 MG TAB PO SCH (09:16)
[2022-10-02] MEDS: HumuLIN 70/30 (300 UNITS/3 ML VIAL) SC SCH ×2 (09:17→21:49)
[2022-10-02] MEDS: Hydrocortisone 1% Cream 30 GM TUBE TOP SCH ×2 (09:18→21:49)
[2022-10-02] MEDS: Pantoprazole 40 MG VIAL IVP SCH (09:19)
[2022-10-02] MEDS: HumaLOG 300 UNITS/3 ML VIAL SC PRN ×2 (16:20→21:50)
[2022-10-02] MEDS: Insulin Glargine 30 UNITS/0.3 ML VIAL SC SCH (21:49)
[2022-10-03] MEDS: Mometasone/Formoterol 200/5 60 PUFF INH SCH (06:11)
[2022-10-03] MEDS: HumaLOG 300 UNITS/3 ML VIAL SC PRN (06:12)
[2022-10-03] MEDS: HumuLIN 70/30 (300 UNITS/3 ML VIAL) SC SCH (09:36)
[2022-10-03] MEDS: Cyanocobalamin (Vitamin B-12) 1,000 MCG TAB PO SCH (09:37)
[2022-10-03] MEDS: Aspirin Chewable 81 MG TAB PO SCH (09:38)
[2022-10-03] MEDS: Dexamethasone 4 MG TAB PO SCH (09:38)
[2022-10-03] MEDS: Cholecalciferol 1,000 UNITS (25 MCG) TAB PO SCH (09:38)
[2022-10-03] MEDS: Ferrous Sulfate 325 MG TAB PO SCH (09:38)
[2022-10-03] MEDS: Folic Acid 1 MG TAB PO SCH (09:39)
[2022-10-03] MEDS: Pantoprazole 40 MG VIAL IVP SCH (09:39)
[2022-10-03] MEDS: Atorvastatin Calcium 20 MG TAB PO SCH (09:39)
[2022-10-03 11:50] VITALS: BP 156/68
[2022-10-03 13:47] VITALS: TEMP 98.3
== END 2022-10-03 13:40 | disposition home or self-care (01) | DRG 393 ==
LOC: 2SW 19:00 → OBSVTOIN 09-27 02:38
PROVIDERS: ADMIT Internal Medicine; ATTEND Internal Medicine
PROC: 8E0ZXY6 Isolation (ICD-10-PCS; principal; 2022-09-27)
DX: K94.02 Colostomy infection (principal); E11.00 Type 2 diabetes mellitus with hyperosmolarity without nonketotic hyperglycemic-hyperosmolar coma (NKHHC); J96.01 Acute respiratory failure with hypoxia; U07.1 COVID-19; L03.311 Cellulitis of abdominal wall; J84.82 Adult pulmonary Langerhans cell histiocytosis; R45.851 Suicidal ideations; K94.03 Colostomy malfunction; D64.9 Anemia, unspecified; L24.B3 Irritant contact dermatitis related to fecal or urinary stoma or fistula; E78.5 Hyperlipidemia, unspecified; Y83.8 Other surgical procedures as the cause of abnormal reaction of the patient, or of later complication, without mention of misadventure at the time of the procedure; J45.909 Unspecified asthma, uncomplicated; Z79.4 Long term (current) use of insulin; Z79.82 Long term (current) use of aspirin; Z79.899 Other long term (current) drug therapy; Z79.52 Long term (current) use of systemic steroids; Z90.49 Acquired absence of other specified parts of digestive tract; Z80.1 Family history of malignant neoplasm of trachea, bronchus and lung; Z87.891 Personal history of nicotine dependence
CPT/HCPCS: 36415; 36416; 71275; 80053; 80076; 80202; 82728; 83036; 83540; 83550; 83615; 83735; 83880; 84100; 84132; 84484; 85025; 85049; 85300; 85362; 85379; 85384; 85610; 85730; 86140; 86769; 87040; 87811; 93970; 96365; 96366; 96367; 96375; 97139; C9113; G0378; J1100; J1815; J2405; J3370; J3475; J3480; J7030; J7512; J8540; Q9967; U0002

== ENCOUNTER 2022-11-16 07:58 | Inpatient (IN) | payer OTHER, SELFPAY ==
[2022-11-16] MEDS ORDERED: Piperacillin/Tazobactam 4.5 GM VIAL ONE (08:44)
[2022-11-16] MEDS ORDERED: Acetaminophen 500 MG TAB ONE (08:45)
[2022-11-16 08:54] LABS: Actual Bicarbonate (HCO3a) 24.1 mEq/L (22-28); Analyzer IN Cardio ER; Base Excess (BEa) 0.1 mEq/L (-2.0 to +3.0); CO2 Tension 36.6 mmHg (35.0-45.0); Calcium, Ionized (arterial) 1.03 mmol/L (1.12-1.30); Carboxyhemoglobin (COHb) 0.4 gm% (0.0-3.0); O2 Tension (PaO2), arterial 74.1 mmHg (80.0-100.0); Potassium - ABG Lab 3.12 mmol/L (3.70-5.30); pH, Arterial 7.44 (7.35-7.45)
[2022-11-16 09:00] LABS: Bacteria/HPF None Seen HPF (None Seen); Bilirubin Negative (Negative); Blood, Urine Negative (Negative); Clarity Clear (Clear); Glucose, Urine (Dipstick) Greater than 1000 mg/dL (Negative); Ketone, Urine Negative (Negative); Leukocyte Negative Leu/uL (Negative); Nitrite Negative (Negative); Protein, Urine (Dipstick) 100 mg/dL (Neg-Trace); RBC/HPF 0-3 HPF (0-3); Specific Gravity, Urine 1.023 (1.002-1.036); Squamous Epithelial None Seen HPF (0-3); Urobilinogen Normal mg/dL (Less than 2); WBC/HPF 0-3 HPF (0-3); pH, Urine 8.5 (5.0-9.0)
[2022-11-16] MEDS ORDERED: Vancomycin 1.5 GRAM/300 ML BAG 1.5 GM in Premix Bag 1 BAG IVPB SCH ×2 (09:00→09:30)
[2022-11-16] MEDS ORDERED: Acetaminophen 325 MG Suppository ONE (09:03)
[2022-11-16 09:15] LABS: Amphetamine Not Detected (NotDetected); Barbiturates Screen Not Detected (NotDetected); Benzodiazepine Screen Not Detected (NotDetected); Cocaine Metabolite Screen Not Detected (NotDetected); Methadone Not Detected (NotDetected); Methamphetamine Not Detected (NotDetected); Opiate Screen Not Detected (NotDetected); Oxycodone Screen Not Detected (NotDetected); Phencyclidine (PCP) Not Detected (NotDetected); THC/Cannabinoid Screen Not Detected (NotDetected); Tricyclic Screen Not Detected (NotDetected)
[2022-11-16 09:20] LABS: ALT (SGPT) 16 U/L (8-55); AST (SGOT) 37 U/L (5-34); Albumin 2.6 g/dL (3.5-5.0); Alkaline Phosphatase 162 U/L (40-110); Anion Gap 12 mmol/L (10-20); BUN (Urea Nitrogen) 11 mg/dL (8.4-25.7); Bilirubin, Total 0.5 mg/dL (0.2-1.2); Calc. Creatinine Clearance 0 mL/min (70-130); Calcium 7.7 mg/dL (7.8-10.44); Carbon Dioxide 23 mmol/L (22-29); Chloride 112 mmol/L (98-107); Estimated GFR 74; Globulin 4.2 g/dL (2.4-3.5); Glucose 153 mg/dL (70-105); Potassium 3.6 mmol/L (3.5-5.1); Protein, Total 6.8 g/dL (6.0-8.3); Sodium 143 mmol/L (136-145)
[2022-11-16] MEDS ORDERED: Iopamidol-370 76% 500 ML 1 ML ONE (09:20)
[2022-11-16 09:21] LABS: Acetaminophen Less than 10.0 mcg/mL (10.0-30.0); Alcohol Less than 10 mg/dL (Less than 10); CK (CPK) 171 U/L (30-200); Lipase 40 U/L (8-78); Salicylate Less than 8.0 mg/dL (15.0-30.0)
[2022-11-16 09:31] LABS: SARS-CoV-2 NAA Rapid Test Not Detected (NotDetected)
[2022-11-16 09:51] LABS: #Lymphocytes 1.6 thou/uL (1.20-3.40); #Monocytes 0.5 thou/uL (0.11-0.59); #Neutrophils 4.4 thou/uL (1.40-6.50); %Basophils 0.3 % (0.0-1.0); %Eosinophils 0.1 % (0.0-10.0); %Lymphocytes 24.1 % (21.0-51.0); %Monocytes 7.8 % (0.0-10.0); %Neutrophils 67.6 % (42.0-75.0); Hemoglobin 10.6 g/dL (14.0-18.0); Hypochromia SLIGHT = 6-15 cells (100X) (0-5/hpf); MDiff Complete? YES; Mean Corpuscular HGB CONC 30.2 g/dL (32.0-36.0); Mean Corpuscular Hemoglobin 27.5 pg (27.0-31.0); Mean Platelet Volume 9.3 fL (7.4-10.4); Platelet Count 108 10x3/uL (130-400); Platelet Morphology Comment Appears Decreased; Polychromasia SLIGHT = 2-3 cells (100X) (0-2/hpf); RBC Distribution Width 16.5 % (11.5-14.5); Red Blood Cell (RBC) Count 3.86 mill/uL (4.70-6.10); White Blood Cell (WBC) Count 6.4 10x3/uL (4.8-10.8)
[2022-11-16 10:19] LABS: Puncture Site LRA
[2022-11-16] MEDS ORDERED: Furosemide 40 MG/4 ML VIAL ONE (10:26)
[2022-11-16 11:49] LABS: Lactic Acid 2.7 mmol/L (0.5-2.2)
[2022-11-16] MEDS ORDERED: Dextrose 50% Abboject 50 ML SYRINGE SLOW IVP PRN (12:42)
[2022-11-16] MEDS ORDERED: Dextrose 5% in Water 1,000 ML IV PRN (12:42)
[2022-11-16] MEDS ORDERED: Piperacillin/Tazobactam 3.375 GM in Sodium Chloride 0.9% 100 ML IVPB SCH (12:45)
[2022-11-16] MEDS ORDERED: Ondansetron PF 4 MG/2 ML Vial IVP PRN (12:48)
[2022-11-16] MEDS ORDERED: Ondansetron ODT 4 MG TAB PO PRN (12:48)
[2022-11-16] MEDS ORDERED: Sodium Chloride 0.9% 500 ML IV SCH ×2 (13:00→17:15)
[2022-11-16] MEDS: Sodium Chloride 0.9% 1,000 ML IV SCH (15:06)
[2022-11-16] MEDS: Piperacillin/Tazobactam 3.375 GM in Sodium Chloride 0.9% 100 ML IVPB SCH ×2 (15:10→23:03)
[2022-11-16 15:23] VITALS: BMI 37.2
[2022-11-16] MEDS ORDERED: Morphine 2 MG/ML VIAL SLOW IVP SCH (17:01)
[2022-11-16] MEDS: Acetaminophen 325 MG TAB PO PRN ×2 (17:05→21:49)
[2022-11-16] MEDS: Nystatin Powder 15 GM BOT TOP PRN ×2 (17:13→21:51)
[2022-11-16 18:15] LABS: Lactic Acid 1.8 mmol/L (0.5-2.2)
[2022-11-16] MEDS: Mometasone 200 MCG/Formoterol 5 MCG 120 PUFF INHALER INH SCH (19:52)
[2022-11-16] MEDS ORDERED: Nystatin Ointment 15 GM TUBE TOP SCH (21:00)
[2022-11-16] MEDS: Famotidine 20 MG TAB PO SCH (21:49)
[2022-11-16] MEDS: Vancomycin 1 GM in Premix Bag 1 BAG IVPB SCH (21:49)
[2022-11-16] MEDS ORDERED: Sodium Chloride 0.9% 500 ML IVPB SCH (22:00)
[2022-11-16 22:47] LABS: Hemoglobin 10.6 g/dL (14.0-18.0); Mean Corpuscular HGB CONC 29.8 g/dL (32.0-36.0); Mean Corpuscular Hemoglobin 27.5 pg (27.0-31.0); RBC Distribution Width 16.8 % (11.5-14.5); Red Blood Cell (RBC) Count 3.87 mill/uL (4.70-6.10); White Blood Cell (WBC) Count 5.6 10x3/uL (4.8-10.8)
[2022-11-16 23:01] LABS: Lactic Acid 1.2 mmol/L (0.5-2.2)
[2022-11-16 23:05] LABS: ALT (SGPT) 14 U/L (8-55); AST (SGOT) 42 U/L (5-34); Albumin 2.4 g/dL (3.5-5.0); Alkaline Phosphatase 148 U/L (40-110); Anion Gap 15 mmol/L (10-20); BUN (Urea Nitrogen) 14 mg/dL (8.4-25.7); Bilirubin, Total 0.4 mg/dL (0.2-1.2); Calc. Creatinine Clearance 102 mL/min (70-130); Calcium 7.2 mg/dL (7.8-10.44); Carbon Dioxide 19 mmol/L (22-29); Chloride 115 mmol/L (98-107); Estimated GFR 77; Globulin 3.9 g/dL (2.4-3.5); Glucose 157 mg/dL (70-105); Potassium 3.1 mmol/L (3.5-5.1); Protein, Total 6.3 g/dL (6.0-8.3); Sodium 146 mmol/L (136-145)
[2022-11-16 23:15] LABS: #Lymphocytes 1.1 thou/uL (1.20-3.40); #Monocytes 0.6 thou/uL (0.11-0.59); #Neutrophils 3.9 thou/uL (1.40-6.50); %Basophils 0.1 % (0.0-1.0); %Eosinophils 0.1 % (0.0-10.0); %Monocytes 10.8 % (0.0-10.0); Anisocytosis SLIGHT = 6-15 cells (100X) (0-5/hpf); MDiff Complete? YES; Mean Platelet Volume 9.8 fL (7.4-10.4); Platelet Count 84 10x3/uL (130-400); Platelet Morphology Comment Appears Decreased
[2022-11-17] MEDS ORDERED: Electrolyte Replacement Protocol FS SCH (03:15)
[2022-11-17] MEDS: Sodium Chloride 0.9% 1,000 ML IV SCH (05:20)
[2022-11-17] MEDS: Piperacillin/Tazobactam 3.375 GM in Sodium Chloride 0.9% 100 ML IVPB SCH ×3 (05:22→22:00)
[2022-11-17 05:45] LABS: #Lymphocytes 0.9 thou/uL (1.20-3.40); #Monocytes 0.4 thou/uL (0.11-0.59); #Neutrophils 3.3 thou/uL (1.40-6.50); %Basophils 0.2 % (0.0-1.0); %Eosinophils 0.2 % (0.0-10.0); %Lymphocytes 19.2 % (21.0-51.0); %Monocytes 8.8 % (0.0-10.0); %Neutrophils 71.6 % (42.0-75.0); Mean Corpuscular HGB CONC 29.6 g/dL (32.0-36.0); Mean Corpuscular Hemoglobin 27.8 pg (27.0-31.0); Mean Corpuscular Volume 93.9 fl (78.0-98.0); Mean Platelet Volume 9.2 fL (7.4-10.4); Platelet Count 96 10x3/uL (130-400); RBC Distribution Width 16.8 % (11.5-14.5); Red Blood Cell (RBC) Count 3.61 mill/uL (4.70-6.10); White Blood Cell (WBC) Count 4.6 10x3/uL (4.8-10.8)
[2022-11-17 06:05] LABS: Anion Gap 15 mmol/L (10-20); BUN (Urea Nitrogen) 13 mg/dL (8.4-25.7); Calc. Creatinine Clearance 135 mL/min (70-130); Calcium 7.4 mg/dL (7.8-10.44); Carbon Dioxide 23 mmol/L (22-29); Chloride 114 mmol/L (98-107); Estimated GFR 104; Glucose 185 mg/dL (70-105); Magnesium 1.9 mg/dL (1.6-2.6); Sodium 149 mmol/L (136-145)
[2022-11-17] MEDS ORDERED: Magnesium 2 GM/50 ML(in water) 2 GM in Premix Bag 1 BAG IVPB SCH (06:15)
[2022-11-17] MEDS ORDERED: Potassium Chloride 20 MEQ TAB PO SCH ×2 (08:00→20:00)
[2022-11-17] MEDS: Mometasone 200 MCG/Formoterol 5 MCG 120 PUFF INHALER INH SCH ×2 (08:17→19:11)
[2022-11-17] MEDS: Vancomycin 1 GM in Premix Bag 1 BAG IVPB SCH ×2 (10:30→21:05)
[2022-11-17] MEDS: Cholecalciferol 1,000 UNITS (25 MCG) TAB PO SCH (10:42)
[2022-11-17] MEDS: Cyanocobalamin (Vitamin B-12) 1,000 MCG TAB PO SCH (10:42)
[2022-11-17] MEDS: Famotidine 20 MG TAB PO SCH ×2 (10:43→21:04)
[2022-11-17] MEDS: Folic Acid 1 MG TAB PO SCH (10:43)
[2022-11-17] MEDS: Atorvastatin Calcium 20 MG TAB PO SCH (10:43)
[2022-11-17] MEDS: Ferrous Sulfate 325 MG TAB PO SCH (10:43)
[2022-11-17] MEDS: Aspirin Chewable 81 MG TAB PO SCH ×2 (10:43→11:57)
[2022-11-17] MEDS: Hydrocortisone Sod Succ/PF 100 mg/2 ml Vial IVP SCH ×3 (10:45→21:05)
[2022-11-17] MEDS: predniSONE 5 MG TAB PO SCH (10:45)
[2022-11-17] MEDS: Lactated Ringer's 1,000 ML IV SCH (11:58)
[2022-11-17] MEDS: Potassium Chloride 10 MEQ in Premix Bag 1 BAG IVPB SCH ×2 (12:18→12:19)
[2022-11-17] MEDS ORDERED: MD-Gastroview 120 ML BOT ONE (13:32)
[2022-11-17 16:17] LABS: Potassium 3.5 mmol/L (3.5-5.1)
[2022-11-18] MEDS: Lactated Ringer's 1,000 ML IV SCH (00:35)
[2022-11-18 06:55] LABS: #Lymphocytes 0.9 thou/uL (1.20-3.40); #Monocytes 0.2 thou/uL (0.11-0.59); #Neutrophils 3.4 thou/uL (1.40-6.50); %Basophils 0.4 % (0.0-1.0); %Eosinophils 0.1 % (0.0-10.0); %Neutrophils 75.4 % (42.0-75.0); Hemoglobin 9.1 g/dL (14.0-18.0); Mean Corpuscular HGB CONC 29.3 g/dL (32.0-36.0); Mean Corpuscular Hemoglobin 27.6 pg (27.0-31.0); Mean Corpuscular Volume 94.1 fl (78.0-98.0); Mean Platelet Volume 9.3 fL (7.4-10.4); Platelet Count 79 10x3/uL (130-400); RBC Distribution Width 16.5 % (11.5-14.5); Red Blood Cell (RBC) Count 3.29 mill/uL (4.70-6.10); White Blood Cell (WBC) Count 4.6 10x3/uL (4.8-10.8)
[2022-11-18 07:17] LABS: Anion Gap 16 mmol/L (10-20); BUN (Urea Nitrogen) 15 mg/dL (8.4-25.7); Calc. Creatinine Clearance 144 mL/min (70-130); Calcium 7.1 mg/dL (7.8-10.44); Carbon Dioxide 20 mmol/L (22-29); Chloride 109 mmol/L (98-107); Estimated GFR 106; Glucose 334 mg/dL (70-105); Magnesium 2.6 mg/dL (1.6-2.6); Potassium 3.8 mmol/L (3.5-5.1); Sodium 141 mmol/L (136-145)
[2022-11-18] MEDS: Mometasone 200 MCG/Formoterol 5 MCG 120 PUFF INHALER INH SCH ×2 (07:51→19:23)
[2022-11-18] MEDS ORDERED: Dextrose 5% in Water 1,000 ML IV PRN (09:09)
[2022-11-18] MEDS ORDERED: Dextrose 50% Abboject 50 ML SYRINGE SLOW IVP PRN (09:09)
[2022-11-18] MEDS: Hydrocortisone Sod Succ/PF 100 mg/2 ml Vial IVP SCH (09:23)
[2022-11-18] MEDS: Famotidine 20 MG TAB PO SCH ×2 (09:24→21:07)
[2022-11-18] MEDS: Atorvastatin Calcium 20 MG TAB PO SCH (09:24)
[2022-11-18] MEDS: Cholecalciferol 1,000 UNITS (25 MCG) TAB PO SCH (09:24)
[2022-11-18] MEDS: Ferrous Sulfate 325 MG TAB PO SCH (09:24)
[2022-11-18] MEDS: Cyanocobalamin (Vitamin B-12) 1,000 MCG TAB PO SCH (09:25)
[2022-11-18] MEDS: Folic Acid 1 MG TAB PO SCH (09:25)
[2022-11-18] MEDS: Vancomycin 1 GM in Premix Bag 1 BAG IVPB SCH (09:25)
[2022-11-18] MEDS: Aspirin Chewable 81 MG TAB PO SCH (09:45)
[2022-11-18] MEDS: Nystatin Powder 15 GM BOT TOP PRN (11:09)
[2022-11-18] MEDS: HumaLOG 300 UNITS/3 ML VIAL SC PRN ×2 (12:21→17:27)
[2022-11-18] MEDS: Acetaminophen 325 MG TAB PO PRN (15:41)
[2022-11-18] MEDS ORDERED: Penicillin G Potassium 4,000,000 UNITS in Syringe 0 ML IVPB SCH (17:00)
[2022-11-18] MEDS: Penicillin G Potassium 4 MILL.UNITS in Sodium Chloride 0.9% 50 ML IVPB SCH ×2 (17:27→21:07)
[2022-11-18] MEDS ORDERED: Non-Formulary Item 1 EACH (Insulin Detemir [Levemir Flextouch] 100 UNIT/ML Insuln.Pen) SQ SCH (21:00)
[2022-11-18] MEDS: Insulin Glargine 30 UNITS/0.3 ML VIAL SC SCH (21:06)
[2022-11-19] MEDS: HumaLOG 300 UNITS/3 ML VIAL SC PRN ×3 (00:37→23:08)
[2022-11-19] MEDS: Penicillin G Potassium 4 MILL.UNITS in Sodium Chloride 0.9% 50 ML IVPB SCH ×6 (00:37→23:10)
[2022-11-19 05:59] LABS: #Eosinphils 0.1 thou/uL (0.0-0.7); #Lymphocytes 1.5 thou/uL (1.20-3.40); #Monocytes 0.3 thou/uL (0.11-0.59); #Neutrophils 2.9 thou/uL (1.40-6.50); %Basophils 0.1 % (0.0-1.0); %Eosinophils 1.1 % (0.0-10.0); %Lymphocytes 31.5 % (21.0-51.0); %Monocytes 7.1 % (0.0-10.0); %Neutrophils 60.2 % (42.0-75.0); Hemoglobin 9.5 g/dL (14.0-18.0); Mean Corpuscular Hemoglobin 27.5 pg (27.0-31.0); Mean Corpuscular Volume 91.8 fl (78.0-98.0); Mean Platelet Volume 9.7 fL (7.4-10.4); Platelet Count 100 10x3/uL (130-400); RBC Distribution Width 16.5 % (11.5-14.5); Red Blood Cell (RBC) Count 3.43 mill/uL (4.70-6.10); White Blood Cell (WBC) Count 4.8 10x3/uL (4.8-10.8)
[2022-11-19] MEDS: Acetaminophen 325 MG TAB PO PRN (06:00)
[2022-11-19 06:15] LABS: Anion Gap 13 mmol/L (10-20); BUN (Urea Nitrogen) 19 mg/dL (8.4-25.7); Calc. Creatinine Clearance 139 mL/min (70-130); Calcium 7.6 mg/dL (7.8-10.44); Carbon Dioxide 24 mmol/L (22-29); Chloride 105 mmol/L (98-107); Estimated GFR 105; Glucose 298 mg/dL (70-105); Potassium 3.7 mmol/L (3.5-5.1); Sodium 138 mmol/L (136-145)
[2022-11-19] MEDS: Mometasone 200 MCG/Formoterol 5 MCG 120 PUFF INHALER INH SCH ×2 (08:08→18:58)
[2022-11-19] MEDS: predniSONE 5 MG TAB PO SCH (09:41)
[2022-11-19] MEDS: Insulin Glargine 30 UNITS/0.3 ML VIAL SC SCH ×2 (09:41→23:08)
[2022-11-19] MEDS: Aspirin Chewable 81 MG TAB PO SCH (09:41)
[2022-11-19] MEDS: Ferrous Sulfate 325 MG TAB PO SCH (09:41)
[2022-11-19] MEDS: Cyanocobalamin (Vitamin B-12) 1,000 MCG TAB PO SCH (09:42)
[2022-11-19] MEDS: Cholecalciferol 1,000 UNITS (25 MCG) TAB PO SCH (09:42)
[2022-11-19] MEDS: Atorvastatin Calcium 20 MG TAB PO SCH (09:42)
[2022-11-19] MEDS: Famotidine 20 MG TAB PO SCH ×2 (09:42→23:10)
[2022-11-19] MEDS: Folic Acid 1 MG TAB PO SCH (09:42)
[2022-11-20] MEDS: Penicillin G Potassium 4 MILL.UNITS in Sodium Chloride 0.9% 50 ML IVPB SCH ×6 (01:34→21:15)
[2022-11-20] MEDS: Mometasone 200 MCG/Formoterol 5 MCG 120 PUFF INHALER INH SCH ×2 (07:41→19:08)
[2022-11-20] MEDS: predniSONE 5 MG TAB PO SCH (10:45)
[2022-11-20] MEDS: Atorvastatin Calcium 20 MG TAB PO SCH (10:46)
[2022-11-20] MEDS: Famotidine 20 MG TAB PO SCH ×2 (10:47→21:00)
[2022-11-20] MEDS: Folic Acid 1 MG TAB PO SCH (10:47)
[2022-11-20] MEDS: Aspirin Chewable 81 MG TAB PO SCH (10:47)
[2022-11-20] MEDS: Cyanocobalamin (Vitamin B-12) 1,000 MCG TAB PO SCH (10:47)
[2022-11-20] MEDS: Ferrous Sulfate 325 MG TAB PO SCH (10:47)
[2022-11-20] MEDS: Cholecalciferol 1,000 UNITS (25 MCG) TAB PO SCH (10:47)
[2022-11-20] MEDS: Insulin Glargine 30 UNITS/0.3 ML VIAL SC SCH ×2 (10:48→21:02)
[2022-11-20] MEDS: HumaLOG 300 UNITS/3 ML VIAL SC PRN (13:45)
[2022-11-20] MEDS ORDERED: Furosemide 40 MG/4 ML VIAL SLOW IVP SCH (18:15)
[2022-11-21] MEDS: Penicillin G Potassium 4 MILL.UNITS in Sodium Chloride 0.9% 50 ML IVPB SCH ×6 (01:40→20:08)
[2022-11-21 06:39] LABS: #Eosinphils 0.1 thou/uL (0.0-0.7); #Lymphocytes 1.9 thou/uL (1.20-3.40); #Monocytes 0.4 thou/uL (0.11-0.59); #Neutrophils 2.4 thou/uL (1.40-6.50); %Basophils 0.3 % (0.0-1.0); %Lymphocytes 40.2 % (21.0-51.0); %Monocytes 7.6 % (0.0-10.0); %Neutrophils 49.9 % (42.0-75.0); Hemoglobin 10.8 g/dL (14.0-18.0); Mean Corpuscular HGB CONC 29.6 g/dL (32.0-36.0); Mean Corpuscular Hemoglobin 27.3 pg (27.0-31.0); Mean Corpuscular Volume 92.1 fl (78.0-98.0); Mean Platelet Volume 8.8 fL (7.4-10.4); Platelet Count 132 10x3/uL (130-400); RBC Distribution Width 17.1 % (11.5-14.5); Red Blood Cell (RBC) Count 3.96 mill/uL (4.70-6.10); White Blood Cell (WBC) Count 4.7 10x3/uL (4.8-10.8)
[2022-11-21 06:58] LABS: Anion Gap 12 mmol/L (10-20); BUN (Urea Nitrogen) 6 mg/dL (8.4-25.7); Calc. Creatinine Clearance 161 mL/min (70-130); Calcium 8.3 mg/dL (7.8-10.44); Carbon Dioxide 36 mmol/L (22-29); Chloride 109 mmol/L (98-107); Estimated GFR 110; Glucose 132 mg/dL (70-105); Potassium 3.1 mmol/L (3.5-5.1)
[2022-11-21 07:04] LABS: Sodium 154 mmol/L (136-145)
[2022-11-21] MEDS: Mometasone 200 MCG/Formoterol 5 MCG 120 PUFF INHALER INH SCH ×2 (07:29→18:53)
[2022-11-21] MEDS: Potassium Chloride 20 MEQ TAB PO SCH ×5 (08:17→15:11)
[2022-11-21] MEDS: predniSONE 5 MG TAB PO SCH ×3 (08:18→11:42)
[2022-11-21] MEDS: Ferrous Sulfate 325 MG TAB PO SCH ×3 (08:19→11:41)
[2022-11-21] MEDS: Cyanocobalamin (Vitamin B-12) 1,000 MCG TAB PO SCH ×3 (08:19→11:42)
[2022-11-21] MEDS: Cholecalciferol 1,000 UNITS (25 MCG) TAB PO SCH ×3 (08:19→11:41)
[2022-11-21] MEDS: Atorvastatin Calcium 20 MG TAB PO SCH ×3 (08:19→11:42)
[2022-11-21] MEDS: Aspirin Chewable 81 MG TAB PO SCH ×3 (08:19→11:41)
[2022-11-21] MEDS: Famotidine 20 MG TAB PO SCH ×4 (08:19→20:07)
[2022-11-21] MEDS: Folic Acid 1 MG TAB PO SCH ×3 (08:20→11:43)
[2022-11-21] MEDS: Insulin Glargine 30 UNITS/0.3 ML VIAL SC SCH ×2 (08:22→20:05)
[2022-11-21] MEDS: Torsemide 20 MG TAB PO SCH ×2 (10:12→11:41)
[2022-11-21] MEDS: Dextrose 5% in Water 500 ML IV SCH (13:15)
[2022-11-21] MEDS: HumaLOG 300 UNITS/3 ML VIAL SC PRN ×2 (17:12→20:08)
[2022-11-21 17:17] LABS: Anion Gap 15 mmol/L (10-20); BUN (Urea Nitrogen) 7 mg/dL (8.4-25.7); Calc. Creatinine Clearance 155 mL/min (70-130); Calcium 8.4 mg/dL (7.8-10.44); Carbon Dioxide 32 mmol/L (22-29); Chloride 108 mmol/L (98-107); Estimated GFR 109; Glucose 172 mg/dL (70-105); Potassium 3.9 mmol/L (3.5-5.1)
[2022-11-21 17:21] LABS: Sodium 151 mmol/L (136-145)
[2022-11-21] MEDS ORDERED: oxyCODONE/Acetaminophen 5 mg/325 mg Tablet PO PRN (19:20)
[2022-11-22] MEDS: Penicillin G Potassium 4 MILL.UNITS in Sodium Chloride 0.9% 50 ML IVPB SCH ×7 (01:07→20:19)
[2022-11-22] MEDS: Dextrose 5% in Water 500 ML IV SCH ×3 (04:34→14:10)
[2022-11-22 05:19] LABS: Anion Gap 9 mmol/L (10-20); BUN (Urea Nitrogen) 8 mg/dL (8.4-25.7); Calc. Creatinine Clearance 187 mL/min (70-130); Calcium 7.8 mg/dL (7.8-10.44); Carbon Dioxide 33 mmol/L (22-29); Chloride 112 mmol/L (98-107); Estimated GFR 115; Glucose 95 mg/dL (70-105); Potassium 3.4 mmol/L (3.5-5.1)
[2022-11-22 05:26] LABS: Sodium 151 mmol/L (136-145)
[2022-11-22] MEDS: Mometasone 200 MCG/Formoterol 5 MCG 120 PUFF INHALER INH SCH ×2 (07:11→19:02)
[2022-11-22] MEDS ORDERED: Potassium Chloride 20 MEQ TAB PO SCH (08:00)
[2022-11-22] MEDS: Insulin Glargine 30 UNITS/0.3 ML VIAL SC SCH ×2 (09:01→20:20)
[2022-11-22] MEDS: Famotidine 20 MG TAB PO SCH ×2 (09:02→20:21)
[2022-11-22] MEDS: Cholecalciferol 1,000 UNITS (25 MCG) TAB PO SCH (09:02)
[2022-11-22] MEDS: Folic Acid 1 MG TAB PO SCH (09:02)
[2022-11-22] MEDS: Cyanocobalamin (Vitamin B-12) 1,000 MCG TAB PO SCH (09:02)
[2022-11-22] MEDS: Ferrous Sulfate 325 MG TAB PO SCH (09:02)
[2022-11-22] MEDS: Torsemide 20 MG TAB PO SCH (09:02)
[2022-11-22] MEDS: Atorvastatin Calcium 20 MG TAB PO SCH (09:03)
[2022-11-22] MEDS: Aspirin Chewable 81 MG TAB PO SCH (09:03)
[2022-11-22] MEDS: predniSONE 5 MG TAB PO SCH (09:03)
[2022-11-22] MEDS ORDERED: Iopamidol-370 76% 500 ML 1 ML ONE (09:09)
[2022-11-22 13:17] LABS: Anion Gap 11 mmol/L (10-20); BUN (Urea Nitrogen) 8 mg/dL (8.4-25.7); Calc. Creatinine Clearance 145 mL/min (70-130); Calcium 8.7 mg/dL (7.8-10.44); Carbon Dioxide 35 mmol/L (22-29); Chloride 107 mmol/L (98-107); Estimated GFR 107; Glucose 202 mg/dL (70-105); Potassium 4.2 mmol/L (3.5-5.1); Sodium 149 mmol/L (136-145)
[2022-11-22] MEDS ORDERED: QUEtiapine 25 MG TAB PO SCH (15:30)
[2022-11-22] MEDS: HumaLOG 300 UNITS/3 ML VIAL SC PRN (15:54)
[2022-11-23] MEDS: Penicillin G Potassium 4 MILL.UNITS in Sodium Chloride 0.9% 50 ML IVPB SCH ×4 (01:18→13:45)
[2022-11-23 04:54] LABS: #Basophils 0.1 thou/uL (0.0-0.2); #Eosinphils 0.1 thou/uL (0.0-0.7); #Lymphocytes 1.9 thou/uL (1.20-3.40); #Monocytes 0.4 thou/uL (0.11-0.59); #Neutrophils 2.2 thou/uL (1.40-6.50); %Basophils 2.3 % (0.0-1.0); %Eosinophils 2.9 % (0.0-10.0); %Lymphocytes 40.8 % (21.0-51.0); %Monocytes 7.8 % (0.0-10.0); %Neutrophils 46.3 % (42.0-75.0); Hemoglobin 10.5 g/dL (14.0-18.0); Mean Corpuscular HGB CONC 30.2 g/dL (32.0-36.0); Mean Corpuscular Hemoglobin 27.7 pg (27.0-31.0); Mean Corpuscular Volume 91.8 fl (78.0-98.0); Mean Platelet Volume 8.8 fL (7.4-10.4); Platelet Count 152 10x3/uL (130-400); RBC Distribution Width 17.3 % (11.5-14.5); Red Blood Cell (RBC) Count 3.79 mill/uL (4.70-6.10); White Blood Cell (WBC) Count 4.7 10x3/uL (4.8-10.8)
[2022-11-23 05:27] LABS: BUN (Urea Nitrogen) 9 mg/dL (8.4-25.7); Calc. Creatinine Clearance 145 mL/min (70-130); Calcium 8.8 mg/dL (7.8-10.44); Estimated GFR 107; Glucose 129 mg/dL (70-105)
[2022-11-23 05:38] LABS: Chloride 100 mmol/L (98-107); Potassium 3.8 mmol/L (3.5-5.1); Sodium 146 mmol/L (136-145)
[2022-11-23 05:41] LABS: Anion Gap 11 mmol/L (10-20); Carbon Dioxide 39 mmol/L (22-29)
[2022-11-23] MEDS: Mometasone 200 MCG/Formoterol 5 MCG 120 PUFF INHALER INH SCH (06:47)
[2022-11-23] MEDS: Cholecalciferol 1,000 UNITS (25 MCG) TAB PO SCH (09:02)
[2022-11-23] MEDS: predniSONE 5 MG TAB PO SCH (09:02)
[2022-11-23] MEDS: Aspirin Chewable 81 MG TAB PO SCH (09:02)
[2022-11-23] MEDS: Folic Acid 1 MG TAB PO SCH (09:03)
[2022-11-23] MEDS: Cyanocobalamin (Vitamin B-12) 1,000 MCG TAB PO SCH (09:03)
[2022-11-23] MEDS: Atorvastatin Calcium 20 MG TAB PO SCH (09:03)
[2022-11-23] MEDS: Famotidine 20 MG TAB PO SCH (09:03)
[2022-11-23] MEDS: Insulin Glargine 30 UNITS/0.3 ML VIAL SC SCH (09:03)
[2022-11-23] MEDS: Ferrous Sulfate 325 MG TAB PO SCH (09:03)
[2022-11-23] MEDS: Torsemide 20 MG TAB PO SCH (09:03)
[2022-11-23 16:46] VITALS: BP 111/69; TEMP 97.9
== END 2022-11-23 17:11 | disposition home or self-care (01) | DRG 871 ==
LOC: ERS 07:58 → ERHOLD 11:19 → NEURO 14:18 → T4-A 11-20 20:41
PROVIDERS: ADMIT Internal Medicine; ATTEND Internal Medicine
PROC: 3E03329 Introduction of Other Anti-infective into Peripheral Vein, Percutaneous Approach (ICD-10-PCS; 2022-11-16)
PROC: 02HV33Z Insertion of Infusion Device into Superior Vena Cava, Percutaneous Approach (ICD-10-PCS; principal; 2022-11-19)
PROC: B5181ZA Fluoroscopy of Superior Vena Cava using Low Osmolar Contrast, Guidance (ICD-10-PCS; 2022-11-19)
PROC: B548ZZA Ultrasonography of Superior Vena Cava, Guidance (ICD-10-PCS; 2022-11-19)
DX: A40.0 Sepsis due to streptococcus, group A (principal); G93.41 Metabolic encephalopathy; C96.6 Unifocal Langerhans-cell histiocytosis; E87.0 Hyperosmolality and hypernatremia; E11.9 Type 2 diabetes mellitus without complications; E78.5 Hyperlipidemia, unspecified; D64.9 Anemia, unspecified; J45.909 Unspecified asthma, uncomplicated; R65.20 Severe sepsis without septic shock; D69.6 Thrombocytopenia, unspecified; R09.02 Hypoxemia; L30.9 Dermatitis, unspecified; Z93.3 Colostomy status; Z90.49 Acquired absence of other specified parts of digestive tract; Z86.16 Personal history of COVID-19; Z79.4 Long term (current) use of insulin; Z79.899 Other long term (current) drug therapy; Z98.890 Other specified postprocedural states; Z87.891 Personal history of nicotine dependence; Z20.822 Contact with and (suspected) exposure to COVID-19
CPT/HCPCS: 36415; 36416; 36569; 36600; 51702; 70450; 71045; 71275; 74177; 74250; 80048; 80053; 80202; 80306; 80307; 81003; 81015; 82274; 82550; 82805; 83605; 83690; 83735; 83880; 84443; 84484; 85025; 85379; 86850; 86900; 86901; 87040; 87077; 87086; 87149; 87186; 93005; 93306; 93970; 94664; 96374; 96375; 97139; C1751; J1650; J1720; J1815; J1940; J2272; J2540; J2543; J3370; J3370-JW; J3475; J3490; J7030; J7050; J7070; J7120; J7512; Q0162; Q9963; Q9967

== ENCOUNTER 2023-02-07 10:55 | Inpatient (IN) | payer OTHER, SELFPAY ==
[2023-02-07] MEDS ORDERED: Acetaminophen 325 MG TAB ONE (11:28)
[2023-02-07] MEDS ORDERED: Vancomycin 1 GM/200 ML (FROZEN) BAG ONE (11:28)
[2023-02-07] MEDS ORDERED: Cefepime 2 GM VIAL ONE (11:28)
[2023-02-07 11:36] LABS: INR-International Normal Ratio 1.1; PTT 29.4 sec (22.9-36.1); Prothrombin Time 14.5 sec (12.0-14.7)
[2023-02-07 11:58] LABS: #Lymphocytes 2.8 thou/uL (1.20-3.40); #Monocytes 0.8 thou/uL (0.11-0.59); %Basophils 0.1 % (0.0-1.0); %Eosinophils 0.4 % (0.0-10.0); %Lymphocytes 29.3 % (21.0-51.0); %Monocytes 8.2 % (0.0-10.0); Hemoglobin 11.8 g/dL (14.0-18.0); Mean Corpuscular HGB CONC 30.8 g/dL (32.0-36.0); Mean Corpuscular Hemoglobin 29.1 pg (27.0-31.0); Mean Corpuscular Volume 94.6 fl (78.0-98.0); Mean Platelet Volume 9.1 fL (7.4-10.4); Platelet Count 145 10x3/uL (130-400); Red Blood Cell (RBC) Count 4.05 mill/uL (4.70-6.10); White Blood Cell (WBC) Count 9.7 10x3/uL (4.8-10.8)
[2023-02-07 12:06] LABS: ALT (SGPT) 10 U/L (8-55); AST (SGOT) 21 U/L (5-34); Albumin 3.1 g/dL (3.5-5.0); Alkaline Phosphatase 156 U/L (40-110); Anion Gap 18 mmol/L (10-20); BUN (Urea Nitrogen) 14 mg/dL (8.4-25.7); Bilirubin, Total 0.3 mg/dL (0.2-1.2); Calc. Creatinine Clearance 0 mL/min (70-130); Calcium 8.8 mg/dL (7.8-10.44); Carbon Dioxide 35 mmol/L (22-29); Chloride 87 mmol/L (98-107); Estimated GFR 70; Glucose 203 mg/dL (70-105); Protein, Total 9.1 g/dL (6.0-8.3); Sodium 137 mmol/L (136-145)
[2023-02-07 12:10] LABS: Potassium 2.6 mmol/L (3.5-5.1)
[2023-02-07 12:43] LABS: SARS-CoV-2 NAA Rapid Test Not Detected (NotDetected)
[2023-02-07] MEDS ORDERED: Potassium Chloride 20 MEQ TAB ONE (13:04)
[2023-02-07] MEDS ORDERED: Potassium Chloride 20 MEQ/100 ML PREMIX BAG ONE (13:04)
[2023-02-07 13:49] LABS: Bacteria/HPF None Seen HPF (None Seen); Bilirubin Negative (Negative); Blood, Urine Negative (Negative); Clarity Clear (Clear); Glucose, Urine (Dipstick) Normal (Negative); Ketone, Urine Negative (Negative); Leukocyte 25 Leu/uL (Negative); Nitrite Negative (Negative); Protein, Urine (Dipstick) Negative (Neg-Trace); RBC/HPF 0-3 HPF (0-3); Specific Gravity, Urine 1.009 (1.002-1.036); Squamous Epithelial None Seen HPF (0-3); Urobilinogen Normal mg/dL (Less than 2); WBC/HPF 0-3 HPF (0-3); pH, Urine 5.5 (5.0-9.0)
[2023-02-07] MEDS ORDERED: Iopamidol-370 76% 500 ML MDV (1 ML CHARGE) ONE (14:04)
[2023-02-07 14:22] LABS: Lactic Acid 2.6 mmol/L (0.5-2.2)
[2023-02-07] MEDS ORDERED: Dextrose 50% Abboject 50 ML SYRINGE SLOW IVP PRN (16:16)
[2023-02-07] MEDS ORDERED: Ondansetron PF 4 MG/2 ML Vial IVP PRN (16:16)
[2023-02-07] MEDS ORDERED: Dextrose 5% in Water 1,000 ML IV PRN (16:16)
[2023-02-07] MEDS ORDERED: Ondansetron ODT 4 MG TAB PO PRN (16:16)
[2023-02-07] MEDS ORDERED: HumaLOG 300 UNITS/3 ML VIAL SC PRN (16:16)
[2023-02-07] MEDS ORDERED: VANCOMYCIN 750 MG/250 ML BAG 750 MG in Sodium Chloride 0.9% 250 ML 250 ML IVPB SCH (18:00)
[2023-02-07] MEDS ORDERED: Vancomycin 1 GM in Premix Bag 1 BAG IVPB SCH ×2 (18:15→21:00)
[2023-02-07 19:10] LABS: Legionella Urinary Ag Negative (Negative); Strep pneumo Urine Ag NEGATIVE (NEGATIVE)
[2023-02-07] MEDS ORDERED: Cefepime 1 GM in Sodium Chloride 0.9% 100 ML IVPB SCH (21:00)
[2023-02-07] MEDS: Cefepime 2 GM in Sodium Chloride 0.9% 100 ML IVPB SCH (22:45)
[2023-02-08] MEDS: Acetaminophen 325 MG TAB PO PRN ×3 (00:10→20:28)
[2023-02-08 05:11] LABS: Anion Gap 10 mmol/L (10-20); BUN (Urea Nitrogen) 9 mg/dL (8.4-25.7); Calc. Creatinine Clearance 137 mL/min (70-130); Calcium 7.7 mg/dL (7.8-10.44); Carbon Dioxide 36 mmol/L (22-29); Chloride 96 mmol/L (98-107); Estimated GFR 106; Glucose 117 mg/dL (70-105); Potassium 3.6 mmol/L (3.5-5.1); Sodium 138 mmol/L (136-145)
[2023-02-08 05:35] LABS: Hemoglobin 10.4 g/dL (14.0-18.0); Mean Corpuscular HGB CONC 30.1 g/dL (32.0-36.0); Mean Corpuscular Hemoglobin 28.9 pg (27.0-31.0); Mean Corpuscular Volume 95.9 fl (78.0-98.0); Red Blood Cell (RBC) Count 3.59 mill/uL (4.70-6.10); White Blood Cell (WBC) Count 6.7 10x3/uL (4.8-10.8)
[2023-02-08 05:37] LABS: #Eosinphils 0.1 thou/uL (0.0-0.7); #Lymphocytes 2.2 thou/uL (1.20-3.40); #Monocytes 0.5 thou/uL (0.11-0.59); #Neutrophils 3.9 thou/uL (1.40-6.50); %Basophils 0.2 % (0.0-1.0); %Eosinophils 0.9 % (0.0-10.0); %Lymphocytes 32.6 % (21.0-51.0); %Monocytes 7.8 % (0.0-10.0); %Neutrophils 58.5 % (42.0-75.0); MDiff Complete? YES; Mean Platelet Volume 9.1 fL (7.4-10.4); Platelet Count 87 10x3/uL (130-400); Platelet Morphology Comment Appears Decreased; Polychromasia SLIGHT = 2-3 cells (100X) (0-2/hpf); RBC Distribution Width 16.9 % (11.5-14.5)
[2023-02-08] MEDS: Vancomycin 1 GM in Premix Bag 1 BAG IVPB SCH ×2 (06:00→17:06)
[2023-02-08] MEDS: Cefepime 2 GM in Sodium Chloride 0.9% 100 ML IVPB SCH ×2 (10:41→22:00)
[2023-02-08] MEDS ORDERED: Furosemide 100 MG/10 ML VIAL SLOW IVP SCH (11:30)
[2023-02-08 11:43] LABS: Actual Bicarbonate (HCO3a) 38.4 mEq/L (22-28); Base Excess (BEa) 11.1 mEq/L (-2.0 to +3.0); Calcium, Ionized (arterial) 1.06 mmol/L (1.12-1.30); Hemoglobin (Hb) 11.3 g/dL (14.0-18.0); O2 Tension (PaO2), arterial 145.1 mmHg (80.0-100.0); Potassium - ABG Lab 3.15 mmol/L (3.70-5.30); pH, Arterial 7.39 (7.35-7.45)
[2023-02-08] MEDS ORDERED: methylPREDNISolone Sod Succ 40 MG VIAL IVP SCH ×2 (11:45→21:00)
[2023-02-08 11:46] LABS: Puncture Site RRA
[2023-02-08] MEDS ORDERED: DEXTROMETHORPHAN PO SCH (14:00)
[2023-02-08] MEDS ORDERED: [UNRECOGNIZED DRUG - OTHER] PO SCH (14:00)
[2023-02-08] MEDS ORDERED: [UNRECOGNIZED DRUG - OTHER] PO SCH (14:00)
[2023-02-08] MEDS ORDERED: [UNRECOGNIZED DRUG - OTHER] DT SCH (14:00)
[2023-02-08] MEDS ORDERED: GUAIFENESIN PO SCH (14:00)
[2023-02-08] MEDS ORDERED: Non-Formulary Item 1 EACH (Insulin Aspart [Novolog Flexpen] 100 UNIT/ML Insuln.Pen) SQ SCH (15:00)
[2023-02-08] MEDS: HumaLOG 300 UNITS/3 ML VIAL SC SCH (16:03)
[2023-02-08] MEDS ORDERED: Albuterol 200 PUFF (6.7GM INHALER) INH SCH (18:30)
[2023-02-08] MEDS: Mometasone 200 MCG/Formoterol 5 MCG 120 PUFF INHALER INH SCH (19:06)
[2023-02-08] MEDS: methylPREDNISolone Sod Succ 40 MG VIAL IVP SCH (20:05)
[2023-02-08] MEDS: guaiFENesin/DM ER PO SCH (20:05)
[2023-02-08] MEDS: Azithromycin 500 MG in Sodium Chloride 0.9% 250 ML 250 ML IVPB SCH (20:26)
[2023-02-08] MEDS ORDERED: Nystatin Cream 15 GM TUBE TOP SCH (21:00)
[2023-02-08] MEDS ORDERED: Non-Formulary Item 1 EACH (Insulin Detemir [Levemir Flextouch] 100 UNIT/ML Insuln.Pen) SQ SCH (21:00)
[2023-02-08] MEDS ORDERED: Non-Formulary Item 1 EACH (Budesonide-Formoterol [Symbicort 160-4.5] 160 MG/4.5 MG Aer) INH SCH (21:00)
[2023-02-08] MEDS: Nystatin Powder 15 GM BOT TOP SCH (21:10)
[2023-02-08] MEDS: Insulin Glargine 30 UNITS/0.3 ML VIAL SC SCH (21:53)
[2023-02-09] MEDS: Acetaminophen 325 MG TAB PO PRN ×3 (04:50→22:46)
[2023-02-09] MEDS: Vancomycin 1 GM in Premix Bag 1 BAG IVPB SCH (05:04)
[2023-02-09 05:19] LABS: #Monocytes 0.1 thou/uL (0.11-0.59); #Neutrophils 3.7 thou/uL (1.40-6.50); %Basophils 0.4 % (0.0-1.0); %Lymphocytes 20.6 % (21.0-51.0); %Monocytes 1.1 % (0.0-10.0); %Neutrophils 77.9 % (42.0-75.0); Hemoglobin 10.5 g/dL (14.0-18.0); Mean Corpuscular HGB CONC 30.1 g/dL (32.0-36.0); Mean Corpuscular Hemoglobin 29.2 pg (27.0-31.0); Mean Platelet Volume 9.6 fL (7.4-10.4); Platelet Count 74 10x3/uL (130-400); RBC Distribution Width 17.2 % (11.5-14.5); Red Blood Cell (RBC) Count 3.59 mill/uL (4.70-6.10); White Blood Cell (WBC) Count 4.8 10x3/uL (4.8-10.8)
[2023-02-09 05:29] LABS: Anion Gap 14 mmol/L (10-20); BUN (Urea Nitrogen) 17 mg/dL (8.4-25.7); Calc. Creatinine Clearance 138 mL/min (70-130); Carbon Dioxide 35 mmol/L (22-29); Chloride 91 mmol/L (98-107); Estimated GFR 108; Glucose 150 mg/dL (70-105); Potassium 3.3 mmol/L (3.5-5.1); Sodium 137 mmol/L (136-145)
[2023-02-09 05:47] LABS: Vancomycin, Trough 18.6 ug/mL
[2023-02-09] MEDS: Mometasone 200 MCG/Formoterol 5 MCG 120 PUFF INHALER INH SCH ×2 (06:48→18:55)
[2023-02-09] MEDS ORDERED: PREDNISONE 2.5 MG PO SCH (08:00)
[2023-02-09] MEDS ORDERED: predniSONE 5 MG TAB PO SCH (08:00)
[2023-02-09] MEDS ORDERED: Electrolyte Replacement Protocol FS PRN (08:45)
[2023-02-09] MEDS ORDERED: Potassium Chloride 20 MEQ TAB PO SCH (08:45)
[2023-02-09] MEDS ORDERED: Electrolyte Replacement Protocol 1 EACH FS SCH (08:45)
[2023-02-09] MEDS: Aspirin Chewable 81 MG TAB PO SCH (08:51)
[2023-02-09] MEDS: methylPREDNISolone Sod Succ 40 MG VIAL IVP SCH ×2 (08:51→21:08)
[2023-02-09] MEDS: HumaLOG 300 UNITS/3 ML VIAL SC SCH ×2 (08:51→15:53)
[2023-02-09] MEDS: Atorvastatin Calcium 20 MG TAB PO SCH (08:51)
[2023-02-09] MEDS: Furosemide 40 MG TAB PO SCH ×2 (08:51→13:23)
[2023-02-09] MEDS: Cyanocobalamin (Vitamin B-12) 1,000 MCG TAB PO SCH (08:52)
[2023-02-09] MEDS: guaiFENesin/DM ER PO SCH ×2 (08:52→21:08)
[2023-02-09] MEDS: Cholecalciferol 1,000 UNITS (25 MCG) TAB PO SCH (08:52)
[2023-02-09] MEDS: Folic Acid 1 MG TAB PO SCH (08:52)
[2023-02-09] MEDS: Nystatin Powder 15 GM BOT TOP SCH ×2 (08:54→21:27)
[2023-02-09] MEDS ORDERED: Torsemide 20 MG TAB PO SCH (09:00)
[2023-02-09] MEDS ORDERED: Non-Formulary Item 1 EACH (Cholecalciferol (Vitamin D3) [Vitamin D3] 50 MCG Tablet) PO SCH (09:00)
[2023-02-09] MEDS ORDERED: Cyanocobalamin (Vitamin B-12) 1,000 MCG TAB PO SCH (09:00)
[2023-02-09] MEDS: Cefepime 2 GM in Sodium Chloride 0.9% 100 ML IVPB SCH ×2 (11:15→22:47)
[2023-02-09 11:17] LABS: CO2 Tension 65.6 mmHg (35.0-45.0)
[2023-02-09] MEDS ORDERED: traMADol HCl 50 MG TAB PO PRN (12:23)
[2023-02-09] MEDS: Albuterol 200 PUFF (6.7GM INHALER) INH SCH ×3 (12:37→23:58)
[2023-02-09] MEDS: Azithromycin 500 MG in Sodium Chloride 0.9% 250 ML 250 ML IVPB SCH (21:07)
[2023-02-09] MEDS: Insulin Glargine 30 UNITS/0.3 ML VIAL SC SCH (21:08)
[2023-02-10 07:53] LABS: #Lymphocytes 1.1 thou/uL (1.20-3.40); #Monocytes 0.3 thou/uL (0.11-0.59); #Neutrophils 5.2 thou/uL (1.40-6.50); %Basophils 0.1 % (0.0-1.0); %Eosinophils 0.1 % (0.0-10.0); %Lymphocytes 16.3 % (21.0-51.0); %Monocytes 3.8 % (0.0-10.0); %Neutrophils 79.8 % (42.0-75.0); Hemoglobin 9.8 g/dL (14.0-18.0); Mean Corpuscular HGB CONC 31.1 g/dL (32.0-36.0); Mean Corpuscular Hemoglobin 29.2 pg (27.0-31.0); Red Blood Cell (RBC) Count 3.34 mill/uL (4.70-6.10); White Blood Cell (WBC) Count 6.5 10x3/uL (4.8-10.8)
[2023-02-10 08:02] LABS: Anion Gap 10 mmol/L (10-20); BUN (Urea Nitrogen) 24 mg/dL (8.4-25.7); Calc. Creatinine Clearance 124 mL/min (70-130); Calcium 8.1 mg/dL (7.8-10.44); Carbon Dioxide 36 mmol/L (22-29); Chloride 92 mmol/L (98-107); Estimated GFR 104; Glucose 236 mg/dL (70-105); Potassium 3.1 mmol/L (3.5-5.1); Sodium 135 mmol/L (136-145)
[2023-02-10 08:10] LABS: MDiff Complete? YES; Mean Platelet Volume 10.4 fL (7.4-10.4); Platelet Count 77 10x3/uL (130-400); Platelet Morphology Comment Appears Decreased; Polychromasia SLIGHT = 2-3 cells (100X) (0-2/hpf); RBC Distribution Width 16.7 % (11.5-14.5)
[2023-02-10] MEDS ORDERED: Magnesium 2 GM/50 ML(in water) 2 GM in Premix Bag 1 BAG IVPB SCH (08:15)
[2023-02-10] MEDS ORDERED: Iopamidol-370 76% 500 ML MDV (1 ML CHARGE) ONE (08:43)
[2023-02-10] MEDS ORDERED: Potassium Chloride 20 MEQ TAB PO SCH (09:00)
[2023-02-10] MEDS: Aspirin Chewable 81 MG TAB PO SCH (09:10)
[2023-02-10] MEDS: Atorvastatin Calcium 20 MG TAB PO SCH (09:10)
[2023-02-10] MEDS: Furosemide 40 MG TAB PO SCH (09:10)
[2023-02-10] MEDS: Folic Acid 1 MG TAB PO SCH (09:10)
[2023-02-10] MEDS: Cyanocobalamin (Vitamin B-12) 1,000 MCG TAB PO SCH (09:10)
[2023-02-10] MEDS: Cholecalciferol 1,000 UNITS (25 MCG) TAB PO SCH (09:11)
[2023-02-10] MEDS: guaiFENesin/DM ER PO SCH ×2 (09:11→22:06)
[2023-02-10] MEDS: methylPREDNISolone Sod Succ 40 MG VIAL IVP SCH ×2 (09:11→22:06)
[2023-02-10] MEDS: Nystatin Powder 15 GM BOT TOP SCH ×2 (09:12→22:37)
[2023-02-10] MEDS: HumaLOG 300 UNITS/3 ML VIAL SC SCH ×2 (09:48→16:29)
[2023-02-10 11:00] LABS: Actual Bicarbonate (HCO3a) 31.1 mEq/L (22-28); Base Excess (BEa) 4.9 mEq/L (-2.0 to +3.0); CO2 Tension 53.9 mmHg (35.0-45.0); O2 Tension (PaO2), arterial 76.2 mmHg (80.0-100.0); pH, Arterial 7.38 (7.35-7.45)
[2023-02-10 11:01] LABS: Analyzer IN Cardio ER; Calcium, Ionized (arterial) 1.11 mmol/L (1.12-1.30); Carboxyhemoglobin (COHb) 0.5 gm% (0.0-3.0); Hemoglobin (Hb) 10.8 g/dL (14.0-18.0); Potassium - ABG Lab 3.21 mmol/L (3.70-5.30); Puncture Site RBA
[2023-02-10 11:20] LABS: #Monocytes 0.2 thou/uL (0.11-0.59); #Neutrophils 5.5 thou/uL (1.40-6.50); %Basophils 0.1 % (0.0-1.0); %Eosinophils 0.2 % (0.0-10.0); %Lymphocytes 15.4 % (21.0-51.0); %Monocytes 2.2 % (0.0-10.0); %Neutrophils 82.1 % (42.0-75.0); Hemoglobin 9.9 g/dL (14.0-18.0); Mean Corpuscular HGB CONC 30.9 g/dL (32.0-36.0); Mean Corpuscular Hemoglobin 29.1 pg (27.0-31.0); Mean Corpuscular Volume 94.2 fl (78.0-98.0); Mean Platelet Volume 9.6 fL (7.4-10.4); Platelet Count 94 10x3/uL (130-400); RBC Distribution Width 16.8 % (11.5-14.5); White Blood Cell (WBC) Count 6.7 10x3/uL (4.8-10.8)
[2023-02-10 11:27] LABS: ALT (SGPT) 10 U/L (8-55); AST (SGOT) 14 U/L (5-34); Albumin 2.7 g/dL (3.5-5.0); Alkaline Phosphatase 124 U/L (40-110); Anion Gap 15 mmol/L (10-20); BUN (Urea Nitrogen) 24 mg/dL (8.4-25.7); Bilirubin, Total 0.2 mg/dL (0.2-1.2); Calc. Creatinine Clearance 130 mL/min (70-130); Calcium 7.9 mg/dL (7.8-10.44); Carbon Dioxide 31 mmol/L (22-29); Chloride 94 mmol/L (98-107); Estimated GFR 105; Globulin 4.2 g/dL (2.4-3.5); Glucose 245 mg/dL (70-105); Potassium 3.2 mmol/L (3.5-5.1); Protein, Total 6.9 g/dL (6.0-8.3); Sodium 137 mmol/L (136-145)
[2023-02-10] MEDS: Cefepime 2 GM in Sodium Chloride 0.9% 100 ML IVPB SCH (11:54)
[2023-02-10] MEDS ORDERED: Vancomycin 1 GM in Premix Bag 1 BAG IVPB SCH (12:00)
[2023-02-10 14:02] LABS: Troponin I Less than 0.010 ng/mL (< 0.028)
[2023-02-10 14:09] LABS: Troponin I Less than 0.010 ng/mL (< 0.028)
[2023-02-10] MEDS ORDERED: Piperacillin/Tazobactam 3.375 GM in Sodium Chloride 0.9% 100 ML IVPB SCH (15:30)
[2023-02-10 15:42] LABS: Lactic Acid 2.6 mmol/L (0.5-2.2)
[2023-02-10] MEDS: Mometasone 200 MCG/Formoterol 5 MCG 120 PUFF INHALER INH SCH ×2 (15:52→19:23)
[2023-02-10] MEDS: Albuterol 200 PUFF (6.7GM INHALER) INH SCH ×2 (15:53→19:22)
[2023-02-10] MEDS: Vancomycin 1 GM in Premix Bag 1 BAG IVPB SCH (16:27)
[2023-02-10] MEDS: Piperacillin/Tazobactam 3.375 GM in Sodium Chloride 0.9% 100 ML IVPB SCH (21:05)
[2023-02-10] MEDS: Insulin Glargine 30 UNITS/0.3 ML VIAL SC SCH (22:06)
[2023-02-10] MEDS: Acetaminophen 325 MG TAB PO PRN (22:39)
[2023-02-11] MEDS: Albuterol 200 PUFF (6.7GM INHALER) INH SCH ×4 (02:03→19:08)
[2023-02-11] MEDS: Vancomycin 1 GM in Premix Bag 1 BAG IVPB SCH (03:10)
[2023-02-11] MEDS: Piperacillin/Tazobactam 3.375 GM in Sodium Chloride 0.9% 100 ML IVPB SCH ×3 (03:10→23:10)
[2023-02-11 05:36] LABS: #Lymphocytes 0.8 thou/uL (1.20-3.40); #Monocytes 0.2 thou/uL (0.11-0.59); #Neutrophils 4.7 thou/uL (1.40-6.50); %Basophils 0.1 % (0.0-1.0); %Eosinophils 0.1 % (0.0-10.0); %Lymphocytes 14.3 % (21.0-51.0); %Monocytes 3.9 % (0.0-10.0); %Neutrophils 81.6 % (42.0-75.0); Hemoglobin 9.4 g/dL (14.0-18.0); Mean Corpuscular HGB CONC 30.2 g/dL (32.0-36.0); Mean Corpuscular Volume 96.1 fl (78.0-98.0); Mean Platelet Volume 9.5 fL (7.4-10.4); Platelet Count 85 10x3/uL (130-400); RBC Distribution Width 16.7 % (11.5-14.5); Red Blood Cell (RBC) Count 3.24 mill/uL (4.70-6.10); White Blood Cell (WBC) Count 5.7 10x3/uL (4.8-10.8)
[2023-02-11 05:53] LABS: BUN (Urea Nitrogen) 22 mg/dL (8.4-25.7); Calc. Creatinine Clearance 123 mL/min (70-130); Cardiac Risk 3.3 (Less than 4.5); Cholesterol 90 mg/dl (< 200 Desired); Estimated GFR 103; Glucose 330 mg/dL (70-105); HDL Cholesterol 27 mg/dL (>60 Neg Risk); LDL Cholesterol, Calculated 44 mg/dL; Triglycerides 97 mg/dL (Less than 150)
[2023-02-11 06:02] LABS: Anion Gap 17 mmol/L (10-20); Carbon Dioxide 32 mmol/L (22-29); Chloride 91 mmol/L (98-107); Potassium 3.3 mmol/L (3.5-5.1); Sodium 137 mmol/L (136-145)
[2023-02-11] MEDS: HumaLOG 300 UNITS/3 ML VIAL SC PRN ×2 (06:23→12:47)
[2023-02-11] MEDS ORDERED: Potassium Chloride 20 MEQ TAB PO SCH (08:00)
[2023-02-11] MEDS: Mometasone 200 MCG/Formoterol 5 MCG 120 PUFF INHALER INH SCH ×2 (08:25→19:10)
[2023-02-11] MEDS: HumaLOG 300 UNITS/3 ML VIAL SC SCH ×2 (09:26→16:51)
[2023-02-11] MEDS: Cholecalciferol 1,000 UNITS (25 MCG) TAB PO SCH (09:27)
[2023-02-11] MEDS: Atorvastatin Calcium 20 MG TAB PO SCH (09:27)
[2023-02-11] MEDS: Aspirin Chewable 81 MG TAB PO SCH (09:27)
[2023-02-11] MEDS: methylPREDNISolone Sod Succ 40 MG VIAL IVP SCH (09:28)
[2023-02-11] MEDS: Cyanocobalamin (Vitamin B-12) 1,000 MCG TAB PO SCH (09:28)
[2023-02-11] MEDS: Folic Acid 1 MG TAB PO SCH (09:28)
[2023-02-11] MEDS: Furosemide 40 MG TAB PO SCH (09:28)
[2023-02-11] MEDS: Nystatin Powder 15 GM BOT TOP SCH ×2 (09:30→21:27)
[2023-02-11] MEDS: guaiFENesin/DM ER PO SCH ×2 (09:30→21:27)
[2023-02-11 12:47] LABS: Syphilis Antibody Nonreactive (Nonreactive); Syphilis Antibody Index 0.21 S/CO (<1.00 Non-Reactive)
[2023-02-11] MEDS: Oxacillin 2 GM in Sodium Chloride 0.9% 100 ML IVPB SCH ×2 (16:52→21:26)
[2023-02-11] MEDS: Insulin Glargine 30 UNITS/0.3 ML VIAL SC SCH (21:27)
[2023-02-12] MEDS: Oxacillin 2 GM in Sodium Chloride 0.9% 100 ML IVPB SCH ×6 (02:20→21:20)
[2023-02-12] MEDS: Albuterol 200 PUFF (6.7GM INHALER) INH SCH ×4 (03:09→18:59)
[2023-02-12] MEDS: Piperacillin/Tazobactam 3.375 GM in Sodium Chloride 0.9% 100 ML IVPB SCH (05:25)
[2023-02-12 05:36] LABS: #Lymphocytes 1.1 thou/uL (1.20-3.40); #Monocytes 0.5 thou/uL (0.11-0.59); #Neutrophils 4.1 thou/uL (1.40-6.50); %Basophils 0.7 % (0.0-1.0); %Lymphocytes 19.8 % (21.0-51.0); %Monocytes 8.4 % (0.0-10.0); %Neutrophils 71.2 % (42.0-75.0); Hemoglobin 9.7 g/dL (14.0-18.0); Mean Corpuscular Hemoglobin 29.1 pg (27.0-31.0); Mean Corpuscular Volume 97.2 fl (78.0-98.0); Mean Platelet Volume 9.1 fL (7.4-10.4); Platelet Count 75 10x3/uL (130-400); RBC Distribution Width 17.1 % (11.5-14.5); Red Blood Cell (RBC) Count 3.33 mill/uL (4.70-6.10); White Blood Cell (WBC) Count 5.7 10x3/uL (4.8-10.8)
[2023-02-12 05:51] LABS: Vancomycin, Random 8.5 ug/mL (See Comment)
[2023-02-12 06:01] LABS: Magnesium 2.1 mg/dL (1.6-2.6)
[2023-02-12 06:08] LABS: BUN (Urea Nitrogen) 21 mg/dL (8.4-25.7); Calc. Creatinine Clearance 143 mL/min (70-130); Calcium 8.2 mg/dL (7.8-10.44); Estimated GFR 107; Glucose 122 mg/dL (70-105)
[2023-02-12 06:18] LABS: Anion Gap 19 mmol/L (10-20); Carbon Dioxide 35 mmol/L (22-29); Chloride 95 mmol/L (98-107); Potassium 3.5 mmol/L (3.5-5.1); Sodium 145 mmol/L (136-145)
[2023-02-12] MEDS: Mometasone 200 MCG/Formoterol 5 MCG 120 PUFF INHALER INH SCH ×2 (07:49→19:01)
[2023-02-12] MEDS ORDERED: Potassium Chloride 20 MEQ TAB PO SCH (08:00)
[2023-02-12] MEDS: Aspirin Chewable 81 MG TAB PO SCH (08:13)
[2023-02-12] MEDS: predniSONE 20 MG TAB PO SCH (08:13)
[2023-02-12] MEDS: Cholecalciferol 1,000 UNITS (25 MCG) TAB PO SCH (08:13)
[2023-02-12] MEDS: Atorvastatin Calcium 20 MG TAB PO SCH (08:14)
[2023-02-12] MEDS: Cyanocobalamin (Vitamin B-12) 1,000 MCG TAB PO SCH (08:14)
[2023-02-12] MEDS: HumaLOG 300 UNITS/3 ML VIAL SC SCH ×2 (08:14→17:12)
[2023-02-12] MEDS: Furosemide 40 MG TAB PO SCH (08:14)
[2023-02-12] MEDS: Folic Acid 1 MG TAB PO SCH (08:14)
[2023-02-12] MEDS: guaiFENesin/DM ER PO SCH ×2 (08:15→21:19)
[2023-02-12] MEDS: Nystatin Powder 15 GM BOT TOP SCH ×2 (08:41→21:20)
[2023-02-12] MEDS: Insulin Glargine 30 UNITS/0.3 ML VIAL SC SCH (21:20)
[2023-02-13] MEDS: Albuterol 200 PUFF (6.7GM INHALER) INH SCH ×3 (01:48→14:25)
[2023-02-13] MEDS: Oxacillin 2 GM in Sodium Chloride 0.9% 100 ML IVPB SCH ×6 (02:07→21:35)
[2023-02-13 06:02] LABS: #Lymphocytes 2.4 thou/uL (1.20-3.40); #Monocytes 0.7 thou/uL (0.11-0.59); #Neutrophils 5.9 thou/uL (1.40-6.50); %Basophils 0.1 % (0.0-1.0); %Eosinophils 0.2 % (0.0-10.0); %Lymphocytes 26.6 % (21.0-51.0); %Monocytes 7.4 % (0.0-10.0); %Neutrophils 65.7 % (42.0-75.0); Hemoglobin 10.1 g/dL (14.0-18.0); Mean Corpuscular Hemoglobin 30.3 pg (27.0-31.0); Mean Corpuscular Volume 97.7 fl (78.0-98.0); Mean Platelet Volume 9.5 fL (7.4-10.4); Platelet Count 88 10x3/uL (130-400); RBC Distribution Width 17.3 % (11.5-14.5); Red Blood Cell (RBC) Count 3.32 mill/uL (4.70-6.10)
[2023-02-13 06:24] LABS: BUN (Urea Nitrogen) 19 mg/dL (8.4-25.7); Calc. Creatinine Clearance 168 mL/min (70-130); Calcium 7.9 mg/dL (7.8-10.44); Estimated GFR 112; Glucose 90 mg/dL (70-105)
[2023-02-13 06:35] LABS: Anion Gap 19 mmol/L (10-20); Carbon Dioxide 33 mmol/L (22-29); Chloride 94 mmol/L (98-107); Potassium 3.2 mmol/L (3.5-5.1); Sodium 143 mmol/L (136-145)
[2023-02-13] MEDS ORDERED: Potassium Chloride 20 MEQ TAB PO SCH (08:00)
[2023-02-13] MEDS: Mometasone 200 MCG/Formoterol 5 MCG 120 PUFF INHALER INH SCH ×2 (08:20→20:00)
[2023-02-13 08:30] VITALS: BMI 35.0
[2023-02-13] MEDS ORDERED: Magnesium 2 GM/50 ML(in water) 2 GM in Premix Bag 1 BAG IVPB SCH (09:00)
[2023-02-13] MEDS: Cyanocobalamin (Vitamin B-12) 1,000 MCG TAB PO SCH (10:16)
[2023-02-13] MEDS: Aspirin Chewable 81 MG TAB PO SCH (10:21)
[2023-02-13] MEDS: predniSONE 20 MG TAB PO SCH (10:22)
[2023-02-13] MEDS: Atorvastatin Calcium 20 MG TAB PO SCH (10:22)
[2023-02-13] MEDS: Cholecalciferol 1,000 UNITS (25 MCG) TAB PO SCH (10:22)
[2023-02-13] MEDS: Folic Acid 1 MG TAB PO SCH (10:22)
[2023-02-13] MEDS: Furosemide 40 MG TAB PO SCH (10:23)
[2023-02-13] MEDS: Nystatin Powder 15 GM BOT TOP SCH ×2 (10:23→20:54)
[2023-02-13] MEDS: HumaLOG 300 UNITS/3 ML VIAL SC SCH ×3 (10:24→15:15)
[2023-02-13] MEDS: guaiFENesin/DM ER PO SCH ×2 (11:28→20:54)
[2023-02-13 14:47] LABS: Potassium 3.4 mmol/L (3.5-5.1)
[2023-02-13] MEDS: Albuterol HFA (OR) 200 PUFF INH INH SCH (20:00)
[2023-02-13] MEDS: Insulin Glargine 30 UNITS/0.3 ML VIAL SC SCH (21:02)
[2023-02-14] MEDS: Albuterol HFA (OR) 200 PUFF INH INH SCH ×4 (00:46→18:45)
[2023-02-14] MEDS: Oxacillin 2 GM in Sodium Chloride 0.9% 100 ML IVPB SCH ×3 (01:30→09:18)
[2023-02-14 07:20] LABS: Magnesium 2.3 mg/dL (1.6-2.6)
[2023-02-14] MEDS: HumaLOG 300 UNITS/3 ML VIAL SC SCH ×2 (07:33→15:12)
[2023-02-14] MEDS: Mometasone 200 MCG/Formoterol 5 MCG 120 PUFF INHALER INH SCH ×2 (07:50→18:45)
[2023-02-14] MEDS: Albuterol 200 PUFF (6.7GM INHALER) INH SCH (07:51)
[2023-02-14] MEDS: Aspirin Chewable 81 MG TAB PO SCH (09:18)
[2023-02-14] MEDS: Cholecalciferol 1,000 UNITS (25 MCG) TAB PO SCH (09:18)
[2023-02-14] MEDS: Cyanocobalamin (Vitamin B-12) 1,000 MCG TAB PO SCH (09:19)
[2023-02-14] MEDS: Furosemide 40 MG TAB PO SCH (09:19)
[2023-02-14] MEDS: Atorvastatin Calcium 20 MG TAB PO SCH (09:19)
[2023-02-14] MEDS: Folic Acid 1 MG TAB PO SCH (09:19)
[2023-02-14] MEDS: Nystatin Powder 15 GM BOT TOP SCH ×2 (09:19→22:16)
[2023-02-14] MEDS: predniSONE 20 MG TAB PO SCH (09:19)
[2023-02-14] MEDS: guaiFENesin/DM ER PO SCH ×2 (09:19→22:15)
[2023-02-14] MEDS ORDERED: Potassium Chloride 20 MEQ TAB PO SCH (11:00)
[2023-02-14] MEDS: Cephalexin 250 MG CAP PO SCH ×2 (16:54→22:15)
[2023-02-14 17:02] LABS: ANA Symphony (Qualitative) Negative (Negative); ANA Symphony (Quantitative) 0.6 Ratio (< 0.7 Negative); dsDNA IgG Antibody 1.9 IU/mL (<10 Negative)
[2023-02-14 17:16] LABS: Potassium 4.4 mmol/L (3.5-5.1)
[2023-02-14] MEDS: HumaLOG 300 UNITS/3 ML VIAL SC PRN (18:31)
[2023-02-14] MEDS: Insulin Glargine 30 UNITS/0.3 ML VIAL SC SCH (22:17)
[2023-02-15] MEDS: Albuterol HFA (OR) 200 PUFF INH INH SCH ×3 (01:01→12:44)
[2023-02-15] MEDS: Mometasone 200 MCG/Formoterol 5 MCG 120 PUFF INHALER INH SCH (07:27)
[2023-02-15] MEDS ORDERED: Magnesium 2 GM/50 ML(in water) 2 GM in Premix Bag 1 BAG IVPB SCH (08:00)
[2023-02-15] MEDS: HumaLOG 300 UNITS/3 ML VIAL SC SCH ×2 (08:38→15:46)
[2023-02-15] MEDS: Nystatin Powder 15 GM BOT TOP SCH (08:41)
[2023-02-15] MEDS: Cephalexin 250 MG CAP PO SCH ×2 (08:41→15:54)
[2023-02-15] MEDS: guaiFENesin/DM ER PO SCH (08:41)
[2023-02-15] MEDS: Aspirin Chewable 81 MG TAB PO SCH (08:41)
[2023-02-15] MEDS: Cholecalciferol 1,000 UNITS (25 MCG) TAB PO SCH (08:42)
[2023-02-15] MEDS: Folic Acid 1 MG TAB PO SCH (08:42)
[2023-02-15] MEDS: Cyanocobalamin (Vitamin B-12) 1,000 MCG TAB PO SCH (08:42)
[2023-02-15] MEDS: Furosemide 40 MG TAB PO SCH (08:42)
[2023-02-15] MEDS: predniSONE 20 MG TAB PO SCH (08:42)
[2023-02-15] MEDS: Atorvastatin Calcium 20 MG TAB PO SCH (08:42)
[2023-02-15 16:27] VITALS: BP 118/75; TEMP 97.5
== END 2023-02-15 16:56 | disposition home or self-care (01) | DRG 871 ==
LOC: ERS 10:55 → 2NO 16:45 → CCU 02-08 13:08 → T4-B 02-09 13:22 → NEURO 02-10 15:07 → T4-B 02-13 16:22
PROVIDERS: ADMIT Internal Medicine; ATTEND Hospitalist
PROC: 3E03329 Introduction of Other Anti-infective into Peripheral Vein, Percutaneous Approach (ICD-10-PCS; principal; 2023-02-07)
PROC: 4A133R1 Monitoring of Arterial Saturation, Peripheral, Percutaneous Approach (ICD-10-PCS; 2023-02-07)
DX: A41.01 Sepsis due to Methicillin susceptible Staphylococcus aureus (principal); E11.00 Type 2 diabetes mellitus with hyperosmolarity without nonketotic hyperglycemic-hyperosmolar coma (NKHHC); J96.21 Acute and chronic respiratory failure with hypoxia; I50.33 Acute on chronic diastolic (congestive) heart failure; G93.41 Metabolic encephalopathy; Q28.2 Arteriovenous malformation of cerebral vessels; J15.211 Pneumonia due to Methicillin susceptible Staphylococcus aureus; E87.20 Acidosis, unspecified; J84.82 Adult pulmonary Langerhans cell histiocytosis; E44.0 Moderate protein-calorie malnutrition; R65.20 Severe sepsis without septic shock; E87.6 Hypokalemia; J45.909 Unspecified asthma, uncomplicated; E66.9 Obesity, unspecified; D64.9 Anemia, unspecified; Z79.84 Long term (current) use of oral hypoglycemic drugs; Z79.4 Long term (current) use of insulin; Z79.52 Long term (current) use of systemic steroids; Z79.899 Other long term (current) drug therapy; Z93.3 Colostomy status; Z90.49 Acquired absence of other specified parts of digestive tract; Z87.891 Personal history of nicotine dependence; Z79.51 Long term (current) use of inhaled steroids; Z86.16 Personal history of COVID-19; Z68.35 Body mass index [BMI] 35.0-35.9, adult
CPT/HCPCS: 36415; 36416; 36600; 70450; 70496; 70498; 71045; 71260; 74177; 80048; 80053; 80061; 80202; 81003; 81015; 82805; 83605; 83735; 83880; 84132; 84484; 85025; 85610; 85730; 86038; 86140; 86225; 86780; 87040; 87070; 87077; 87081; 87186; 87205; 87449; 87899; 93005; 93010; 93306; 94640; 94664; 95712; 95819; 95957; 96365; 96367; 97139; J0456; J0692; J1642; J1815; J1940; J2543; J2700; J2920; J3370-JW; J3475; J3480; J3490; J7050; J7512; J7611; Q9967

== ENCOUNTER 2023-04-22 14:15 | Inpatient (IN) | payer OTHER ==
[~2023-04-22 14:15] MED LIST changes: +Iopamidol-370 76% 500 ML MDV (1 ML CHARGE) ONE; -Ondansetron 2MG/ML MDV 10 MG in Sodium Chloride 0.9% 50 ML IVP SCH; -SODIUM CHLORIDE 0.9% IVPB SCH; -VINBLASTINE SULFATE IVPB SCH
[2023-04-22 14:54] LABS: #Monocytes 0.8 thou/uL (0.11-0.59); #Neutrophils 5.9 thou/uL (1.40-6.50); %Basophils 0.2 % (0.0-1.0); %Eosinophils 0.3 % (0.0-10.0); %Lymphocytes 25.5 % (21.0-51.0); %Monocytes 8.9 % (0.0-10.0); %Neutrophils 64.6 % (42.0-75.0); Hemoglobin 10.5 g/dL (14.0-18.0); Mean Corpuscular HGB CONC 29.5 g/dL (32.0-36.0); Mean Corpuscular Hemoglobin 29.9 pg (27.0-31.0); Mean Corpuscular Volume 101.4 fl (78.0-98.0); Mean Platelet Volume 8.8 fL (7.4-10.4); Platelet Count 156 10x3/uL (130-400); RBC Distribution Width 15.8 % (11.5-14.5); Red Blood Cell (RBC) Count 3.51 mill/uL (4.70-6.10); White Blood Cell (WBC) Count 9.2 10x3/uL (4.8-10.8)
[2023-04-22 15:16] LABS: ALT (SGPT) 18 U/L (8-55); AST (SGOT) 23 U/L (5-34); Alkaline Phosphatase 141 U/L (40-110); Anion Gap 12 mmol/L (10-20); BUN (Urea Nitrogen) 14 mg/dL (8.4-25.7); Bilirubin, Total Less than 0.2 mg/dL (0.2-1.2); Calc. Creatinine Clearance 0 mL/min (70-130); Carbon Dioxide 36 mmol/L (22-29); Chloride 99 mmol/L (98-107); Estimated GFR 108; Globulin 4.4 g/dL (2.4-3.5); Glucose 98 mg/dL (70-105); Potassium 3.9 mmol/L (3.5-5.1); Protein, Total 7.4 g/dL (6.0-8.3); Sodium 143 mmol/L (136-145)
[2023-04-22] MEDS ORDERED: cefTRIAXone (ROCEPHIN) 1 GM VIAL ONE (16:47)
[2023-04-22] MEDS ORDERED: Azithromycin 500 MG VIAL ONE (17:21)
[2023-04-22] MEDS ORDERED: Ondansetron PF 4 MG/2 ML Vial IVP PRN (20:51)
[2023-04-22] MEDS ORDERED: Calcium Carbonate 500 MG ChewTAB PO PRN (20:51)
[2023-04-22] MEDS ORDERED: Ondansetron ODT 4 MG TAB PO PRN (20:51)
[2023-04-22] MEDS ORDERED: Acetaminophen 650 MG Suppository PR PRN (20:51)
[2023-04-22] MEDS ORDERED: Glucagon 1 MG/ML KIT IM PRN (20:57)
[2023-04-22] MEDS ORDERED: HumaLOG 300 UNITS/3 ML VIAL SC PRN (20:57)
[2023-04-22] MEDS ORDERED: Dextrose 5% in Water 1,000 ML IV PRN (20:57)
[2023-04-22] MEDS ORDERED: Insulin Glargine 30 UNITS/0.3 ML VIAL SC SCH (21:00)
[2023-04-22] MEDS ORDERED: methylPREDNISolone Sod Succ 40 MG VIAL IVP SCH (21:00)
[2023-04-22] MEDS ORDERED: Famotidine/PF 20 mg/2ml Vial SLOW IVP SCH (21:00)
[2023-04-22] MEDS ORDERED: Famotidine 20 MG TAB PO SCH (21:00)
[2023-04-22 22:00] LABS: Actual Bicarbonate (HCO3a) 38.4 mEq/L (22-28); Base Excess (BEa) 8.2 mEq/L (-2.0 to +3.0); Calcium, Ionized (arterial) 1.15 mmol/L (1.12-1.30); Carboxyhemoglobin (COHb) 0.9 gm% (0.0-3.0); Hematocrit-ABG 35 % (42.0-52.0); Hemoglobin (Hb) 11.9 g/dL (14.0-18.0); pH, Arterial 7.247 (7.35-7.45)
[2023-04-22] MEDS: Dextrose 50% Abboject 50 ML SYRINGE SLOW IVP PRN (22:08)
[2023-04-22] MEDS ORDERED: Ipratropium/Albuterol 3 ML NEB EZPAP PRN (22:16)
[2023-04-22] MEDS: Ipratropium/Albuterol 3 ML NEB NEB SCH (22:26)
[2023-04-22] MEDS: Carvedilol 3.125 MG TAB PO SCH (22:42)
[2023-04-22] MEDS: methylPREDNISolone Sod Succ 40 MG VIAL IVP SCH (23:12)
[2023-04-23 00:25] LABS: Actual Bicarbonate (HCO3a) 39.1 mEq/L (22-28); Base Excess (BEa) 9.5 mEq/L (-2.0 to +3.0); Calcium, Ionized (arterial) 1.14 mmol/L (1.12-1.30); Carboxyhemoglobin (COHb) 0.8 gm% (0.0-3.0); Hematocrit-ABG 34 % (42.0-52.0); Hemoglobin (Hb) 11.6 g/dL (14.0-18.0); O2 Tension (PaO2), arterial 63.3 mmHg (80.0-100.0); Potassium - ABG Lab 3.79 mmol/L (3.70-5.30); pH, Arterial 7.279 (7.35-7.45)
[2023-04-23] MEDS: D5 1/2 NS w/10 mEq KCl 1,000 ML/1,000 ML BAG IV SCH ×2 (00:25→20:09)
[2023-04-23 00:27] LABS: ALV-art Gradient 257.875 mmHg (0-20); Puncture Site LRA
[2023-04-23] MEDS ORDERED: Electrolyte Replacement Protocol 1 EACH FS PRN (00:30)
[2023-04-23 00:43] LABS: Legionella Urinary Ag Negative (Negative); Strep pneumo Urine Ag NEGATIVE (NEGATIVE)
[2023-04-23] MEDS ORDERED: Ipratropium/Albuterol 3 ML NEB NEB SCH (01:00)
[2023-04-23 02:15] LABS: Actual Bicarbonate (HCO3a) 34.8 mEq/L (22-28); Base Excess (BEa) 5.3 mEq/L (-2.0 to +3.0); Calcium, Ionized (arterial) 1.16 mmol/L (1.12-1.30); Carboxyhemoglobin (COHb) 0.6 gm% (0.0-3.0); Hematocrit-ABG 33 % (42.0-52.0); Hemoglobin (Hb) 11.1 g/dL (14.0-18.0); O2 Tension (PaO2), arterial 73.7 mmHg (80.0-100.0); Potassium - ABG Lab 3.81 mmol/L (3.70-5.30); pH, Arterial 7.242 (7.35-7.45)
[2023-04-23 02:17] LABS: Puncture Site LRA
[2023-04-23] MEDS: Ipratropium/Albuterol 3 ML NEB NEB SCH ×6 (02:23→21:17)
[2023-04-23] MEDS ORDERED: Ventilator Sedation Protocol 1 EACH FS ONE (02:50)
[2023-04-23] MEDS ORDERED: Propofol BOLUS 1,000 MG/100 ML VIAL IV PRN (03:00)
[2023-04-23] MEDS ORDERED: Rocuronium Bromide 10 MG/ML (10ML VIAL) IVP SCH (03:00)
[2023-04-23] MEDS ORDERED: Propofol 1,000 MG/100 ML VIAL IV PRN (03:00)
[2023-04-23] MEDS ORDERED: Fentanyl BOLUS 250 ML IVPB PRN (03:00)
[2023-04-23] MEDS ORDERED: DISCONTINUE PREVIOUS NARCOTIC PAIN MEDICATIONS AND BENZODIAZEPINES FS SCH (03:00)
[2023-04-23] MEDS ORDERED: Morphine 2 MG/ML VIAL SLOW IVP PRN (03:00)
[2023-04-23] MEDS: Fentanyl CADD 100 ML IV SCH (03:32)
[2023-04-23] MEDS ORDERED: Rocuronium Bromide 10 MG/ML (10ML VIAL) ONE (04:01)
[2023-04-23 04:21] LABS: Actual Bicarbonate (HCO3a) 31.9 mEq/L (22-28); Base Excess (BEa) 9.2 mEq/L (-2.0 to +3.0); CO2 Tension 36.3 mmHg (35.0-45.0); Carboxyhemoglobin (COHb) 0.6 gm% (0.0-3.0); Hematocrit-ABG 33 % (42.0-52.0); Hemoglobin (Hb) 11.3 g/dL (14.0-18.0); Potassium - ABG Lab 3.65 mmol/L (3.70-5.30); pH, Arterial 7.562 (7.35-7.45)
[2023-04-23 04:26] LABS: Mean Corpuscular HGB CONC 29.7 g/dL (32.0-36.0); Mean Corpuscular Hemoglobin 30.2 pg (27.0-31.0); Mean Corpuscular Volume 101.8 fl (78.0-98.0); Mean Platelet Volume 8.6 fL (7.4-10.4); RBC Distribution Width 15.5 % (11.5-14.5); Red Blood Cell (RBC) Count 3.31 mill/uL (4.70-6.10); White Blood Cell (WBC) Count 6.6 10x3/uL (4.8-10.8)
[2023-04-23 04:27] LABS: ALV-art Gradient 298.875 mmHg (0-20); Puncture Site RBA
[2023-04-23 04:29] LABS: Delete Auto Diff?? YES; Manual Diff?? YES; Platelet Count 142 10x3/uL (130-400)
[2023-04-23 04:48] LABS: Anion Gap 13 mmol/L (10-20); BUN (Urea Nitrogen) 12 mg/dL (8.4-25.7); Calc. Creatinine Clearance 167 mL/min (70-130); Calcium 8.8 mg/dL (7.8-10.44); Carbon Dioxide 36 mmol/L (22-29); Chloride 103 mmol/L (98-107); Estimated GFR 112; Glucose 78 mg/dL (70-105); Magnesium 2.2 mg/dL (1.6-2.6); Potassium 4.2 mmol/L (3.5-5.1); Sodium 148 mmol/L (136-145)
[2023-04-23 04:54] LABS: Band 46 % (5-11); CellaVision Operator ID LAB.CLH1; Hypochromia SLIGHT = 6-15 cells HPF (0-5); Lymphocytes 15 % (21-51); Macrocytosis SLIGHT = 6-15 cells HPF (0-5); Monocytes 3 % (0-10); Neutrophil 35 % (42-75); Nucleated RBC (Manual Ct) 1 % (0); Platelet Adequacy Comment Platelets Normal; Polychromasia MODERATE = 3-4 cells HPF (0-2); Promyelocytes 1 % (0-0); Total Cell Count 100
[2023-04-23 05:11] LABS: Phosphorus 2.9 mg/dL (2.3-4.7)
[2023-04-23] MEDS: methylPREDNISolone Sod Succ 40 MG VIAL IVP SCH ×4 (07:12→23:59)
[2023-04-23] MEDS: Mometasone 200 MCG/Formoterol 5 MCG 120 PUFF INHALER INH SCH ×2 (07:25→18:33)
[2023-04-23 07:50] LABS: Actual Bicarbonate (HCO3a) 31.7 mEq/L (22-28); CO2 Tension 40.6 mmHg (35.0-45.0); Calcium, Ionized (arterial) 1.11 mmol/L (1.12-1.30); Carboxyhemoglobin (COHb) 0.3 gm% (0.0-3.0); Hematocrit-ABG 32 % (42.0-52.0); Hemoglobin (Hb) 10.8 g/dL (14.0-18.0); Potassium - ABG Lab 3.67 mmol/L (3.70-5.30)
[2023-04-23 07:51] LABS: O2 Tension (PaO2), arterial 59.5 mmHg (80.0-100.0)
[2023-04-23 07:52] LABS: Puncture Site LBA
[2023-04-23] MEDS ORDERED: Hydrocortisone Sod Succ/PF 100 mg/2 ml Vial IVP SCH (09:30)
[2023-04-23] MEDS: Carvedilol 3.125 MG TAB PO SCH ×3 (09:59→21:57)
[2023-04-23] MEDS: Folic Acid 1 MG TAB PO SCH (09:59)
[2023-04-23] MEDS: Atorvastatin Calcium 20 MG TAB PO SCH (10:00)
[2023-04-23] MEDS: Aspirin Chewable 81 MG TAB PO SCH (10:00)
[2023-04-23] MEDS: Pantoprazole 40 MG VIAL IVP SCH (10:01)
[2023-04-23] MEDS: LevoFLOXacin 750 mg/D5W 750 MG in Premix Bag 1 BAG IVPB SCH (10:48)
[2023-04-23] MEDS ORDERED: Meropenem 1 GM in Sodium Chloride 0.9% 100 ML IVPB SCH ×2 (11:00→14:00)
[2023-04-23] MEDS: Torsemide 20 MG TAB PO SCH ×2 (11:11→12:18)
[2023-04-23] MEDS: Ketoconazole 2% Cream 15 gm Tube TOP SCH ×2 (11:12→21:42)
[2023-04-23] MEDS ORDERED: [UNRECOGNIZED DRUG - REMARK] IVPB PRN (11:24)
[2023-04-23] MEDS ORDERED: VANCOMYCIN 2 GRAM/500 ML BAG 2 GM in Premix Bag 1 BAG IVPB SCH (11:30)
[2023-04-23 12:35] LABS: Vancomycin, Trough Less than 1.1 ug/mL
[2023-04-23] MEDS: Midazolam HCl 2 mg/2 ml Vial ONE ×2 (15:25→15:30)
[2023-04-23 16:33] LABS: BF Color Colorless; Body Fluid Source Bronchial Washings; Clarity Cloudy/Turbid (Clear)
[2023-04-23 16:34] LABS: BF RBC Count - Manual 190 /cu.mm; BF WBC/Nonhematics Ct.-Manual 5200 /cu.mm
[2023-04-23 17:09] LABS: BF Segmented Neutrophils 95 %; Cell Count Non Hematic 3 %; Lymphocytes 2 %
[2023-04-23] MEDS: Meropenem 1 GM in Sodium Chloride 0.9% 100 ML IVPB SCH (18:23)
[2023-04-23] MEDS: HumaLOG 300 UNITS/3 ML VIAL SC PRN ×2 (18:33→20:24)
[2023-04-23] MEDS ORDERED: hydrOXYzine 25 MG TAB PER TUBE SCH (19:45)
[2023-04-23] MEDS ORDERED: VANCOMYCIN 1.25 GM/250 ML BAG IVPB SCH (21:00)
[2023-04-23] MEDS ORDERED: Vancomycin 1.5 GRAM/300 ML BAG 1.5 GM in Premix Bag 1 BAG IVPB SCH (23:00)
[2023-04-23] MEDS: diphenhydrAMINE 50 MG/ML VIAL IVP PRN (23:59)
[2023-04-24] MEDS: Meropenem 1 GM in Sodium Chloride 0.9% 100 ML IVPB SCH ×3 (01:27→17:42)
[2023-04-24] MEDS: Fentanyl CADD 100 ML IV SCH (01:54)
[2023-04-24] MEDS: Lorazepam 2 MG/ML VIAL SLOW IVP PRN (02:00)
[2023-04-24] MEDS: Ipratropium/Albuterol 3 ML NEB NEB SCH ×5 (02:12→18:28)
[2023-04-24 05:29] LABS: #Monocytes 0.2 thou/uL (0.11-0.59); #Neutrophils 3.4 thou/uL (1.40-6.50); %Lymphocytes 15.5 % (21.0-51.0); %Monocytes 4.2 % (0.0-10.0); %Neutrophils 79.8 % (42.0-75.0); Hemoglobin 8.5 g/dL (14.0-18.0); Mean Corpuscular HGB CONC 29.8 g/dL (32.0-36.0); Mean Corpuscular Hemoglobin 29.7 pg (27.0-31.0); Mean Corpuscular Volume 99.7 fl (78.0-98.0); Mean Platelet Volume 8.3 fL (7.4-10.4); Platelet Count 144 10x3/uL (130-400); RBC Distribution Width 15.7 % (11.5-14.5); Red Blood Cell (RBC) Count 2.86 mill/uL (4.70-6.10); White Blood Cell (WBC) Count 4.3 10x3/uL (4.8-10.8)
[2023-04-24] MEDS: methylPREDNISolone Sod Succ 40 MG VIAL IVP SCH ×4 (05:32→23:08)
[2023-04-24] MEDS: Vancomycin 1.5 GRAM/300 ML BAG 1.5 GM in Premix Bag 1 BAG IVPB SCH ×2 (05:47→17:59)
[2023-04-24 05:53] LABS: ALT (SGPT) 23 U/L (8-55); AST (SGOT) 22 U/L (5-34); Albumin 2.6 g/dL (3.5-5.0); Alkaline Phosphatase 166 U/L (40-110); Anion Gap 14 mmol/L (10-20); BUN (Urea Nitrogen) 24 mg/dL (8.4-25.7); Bilirubin, Total Less than 0.2 mg/dL (0.2-1.2); Calc. Creatinine Clearance 142 mL/min (70-130); Calcium 8.7 mg/dL (7.8-10.44); Carbon Dioxide 31 mmol/L (22-29); Chloride 106 mmol/L (98-107); Estimated GFR 106; Globulin 3.9 g/dL (2.4-3.5); Glucose 227 mg/dL (70-105); Potassium 3.5 mmol/L (3.5-5.1); Protein, Total 6.5 g/dL (6.0-8.3); Sodium 147 mmol/L (136-145)
[2023-04-24] MEDS: HumaLOG 300 UNITS/3 ML VIAL SC PRN ×4 (05:53→16:51)
[2023-04-24] MEDS: Mometasone 200 MCG/Formoterol 5 MCG 120 PUFF INHALER INH SCH ×2 (07:19→18:30)
[2023-04-24] MEDS: diphenhydrAMINE 50 MG/ML VIAL IVP PRN (07:25)
[2023-04-24] MEDS ORDERED: Potassium Chloride 20 MEQ TAB PO SCH (08:00)
[2023-04-24] MEDS: Folic Acid 1 MG TAB PO SCH (09:08)
[2023-04-24] MEDS: Carvedilol 3.125 MG TAB PO SCH ×2 (09:08→21:10)
[2023-04-24] MEDS: Aspirin Chewable 81 MG TAB PO SCH (09:08)
[2023-04-24] MEDS: Atorvastatin Calcium 20 MG TAB PO SCH (09:08)
[2023-04-24] MEDS: Pantoprazole 40 MG VIAL IVP SCH (09:09)
[2023-04-24] MEDS: Ketoconazole 2% Cream 15 gm Tube TOP SCH ×2 (09:09→21:11)
[2023-04-24] MEDS: LevoFLOXacin 750 mg/D5W 750 MG in Premix Bag 1 BAG IVPB SCH (09:12)
[2023-04-24] MEDS ORDERED: Potassium Bicarbonate/Cit Ac 20 MEQ TAB PO SCH (09:15)
[2023-04-24] MEDS: D5 1/2 NS w/10 mEq KCl 1,000 ML/1,000 ML BAG IV SCH (16:13)
[2023-04-25] MEDS: Meropenem 1 GM in Sodium Chloride 0.9% 100 ML IVPB SCH ×3 (01:34→17:40)
[2023-04-25 04:31] LABS: #Monocytes 0.2 thou/uL (0.11-0.59); #Neutrophils 3.5 thou/uL (1.40-6.50); %Lymphocytes 14.5 % (21.0-51.0); %Monocytes 4.2 % (0.0-10.0); %Neutrophils 80.4 % (42.0-75.0); Hemoglobin 8.8 g/dL (14.0-18.0); Mean Corpuscular HGB CONC 29.3 g/dL (32.0-36.0); Mean Corpuscular Hemoglobin 29.7 pg (27.0-31.0); Mean Corpuscular Volume 101.4 fl (78.0-98.0); Mean Platelet Volume 8.2 fL (7.4-10.4); Platelet Count 151 10x3/uL (130-400); RBC Distribution Width 15.8 % (11.5-14.5); Red Blood Cell (RBC) Count 2.96 mill/uL (4.70-6.10); White Blood Cell (WBC) Count 4.3 10x3/uL (4.8-10.8)
[2023-04-25 04:52] LABS: ALT (SGPT) 19 U/L (8-55); AST (SGOT) 18 U/L (5-34); Albumin 2.7 g/dL (3.5-5.0); Alkaline Phosphatase 154 U/L (40-110); Anion Gap 13 mmol/L (10-20); BUN (Urea Nitrogen) 25 mg/dL (8.4-25.7); Bilirubin, Total Less than 0.2 mg/dL (0.2-1.2); Calc. Creatinine Clearance 153 mL/min (70-130); Calcium 8.8 mg/dL (7.8-10.44); Carbon Dioxide 30 mmol/L (22-29); Chloride 111 mmol/L (98-107); Estimated GFR 109; Globulin 3.8 g/dL (2.4-3.5); Glucose 194 mg/dL (70-105); Potassium 4.1 mmol/L (3.5-5.1); Protein, Total 6.5 g/dL (6.0-8.3); Sodium 150 mmol/L (136-145)
[2023-04-25 05:13] LABS: Vancomycin, Random 27.5 ug/mL (See Comment)
[2023-04-25] MEDS: methylPREDNISolone Sod Succ 40 MG VIAL IVP SCH ×3 (05:22→17:40)
[2023-04-25] MEDS: Vancomycin 1.5 GRAM/300 ML BAG 1.5 GM in Premix Bag 1 BAG IVPB SCH (05:47)
[2023-04-25] MEDS: Ipratropium/Albuterol 3 ML NEB NEB SCH ×3 (06:33→22:41)
[2023-04-25] MEDS: Mometasone 200 MCG/Formoterol 5 MCG 120 PUFF INHALER INH SCH ×2 (06:35→19:04)
[2023-04-25] MEDS: Aspirin Chewable 81 MG TAB PO SCH (08:34)
[2023-04-25] MEDS: Atorvastatin Calcium 20 MG TAB PO SCH (08:34)
[2023-04-25] MEDS: Carvedilol 3.125 MG TAB PO SCH ×2 (08:34→20:05)
[2023-04-25] MEDS: Folic Acid 1 MG TAB PO SCH (08:35)
[2023-04-25] MEDS: Torsemide 20 MG TAB PO SCH (08:35)
[2023-04-25] MEDS: Pantoprazole 40 MG VIAL IVP SCH (09:27)
[2023-04-25] MEDS: LevoFLOXacin 750 mg/D5W 750 MG in Premix Bag 1 BAG IVPB SCH (09:27)
[2023-04-25] MEDS: Ketoconazole 2% Cream 15 gm Tube TOP SCH ×2 (09:28→21:32)
[2023-04-25] MEDS ORDERED: Dextrose 5% in Water 500 ML IV SCH (11:15)
[2023-04-25] MEDS: Lorazepam 2 MG/ML VIAL SLOW IVP PRN (13:06)
[2023-04-25] MEDS: Dextrose 5 %-0.45 % NaCl 1,000 ML IV SCH (13:56)
[2023-04-25] MEDS: D5 1/2 NS w/10 mEq KCl 1,000 ML/1,000 ML BAG IV SCH (13:57)
[2023-04-25] MEDS ORDERED: DC Sedation Protocol FS ONE (14:27)
[2023-04-25] MEDS ORDERED: Haloperidol Lactate 5 MG/ML VIAL IM SCH (14:45)
[2023-04-25] MEDS: Vancomycin 1 GM in Premix Bag 1 BAG IVPB SCH (17:40)
[2023-04-26] MEDS: methylPREDNISolone Sod Succ 40 MG VIAL IVP SCH ×4 (00:48→17:40)
[2023-04-26] MEDS: Dextrose 5 %-0.45 % NaCl 1,000 ML IV SCH ×3 (00:57→13:41)
[2023-04-26] MEDS: Meropenem 1 GM in Sodium Chloride 0.9% 100 ML IVPB SCH ×3 (02:09→17:40)
[2023-04-26] MEDS: Vancomycin 1 GM in Premix Bag 1 BAG IVPB SCH ×2 (04:58→17:41)
[2023-04-26 05:15] LABS: #Monocytes 0.2 thou/uL (0.11-0.59); #Neutrophils 2.2 thou/uL (1.40-6.50); %Lymphocytes 18.2 % (21.0-51.0); %Monocytes 5.4 % (0.0-10.0); %Neutrophils 73.7 % (42.0-75.0); Hemoglobin 8.6 g/dL (14.0-18.0); Mean Corpuscular Hemoglobin 29.6 pg (27.0-31.0); Mean Corpuscular Volume 102.1 fl (78.0-98.0); Platelet Count 142 10x3/uL (130-400); RBC Distribution Width 15.9 % (11.5-14.5); Red Blood Cell (RBC) Count 2.91 mill/uL (4.70-6.10)
[2023-04-26 05:37] LABS: ALT (SGPT) 18 U/L (8-55); AST (SGOT) 14 U/L (5-34); Albumin 2.5 g/dL (3.5-5.0); Alkaline Phosphatase 128 U/L (40-110); Anion Gap 13 mmol/L (10-20); BUN (Urea Nitrogen) 23 mg/dL (8.4-25.7); Bilirubin, Total Less than 0.2 mg/dL (0.2-1.2); Calc. Creatinine Clearance 155 mL/min (70-130); Calcium 8.3 mg/dL (7.8-10.44); Carbon Dioxide 33 mmol/L (22-29); Chloride 107 mmol/L (98-107); Estimated GFR 108; Globulin 3.5 g/dL (2.4-3.5); Glucose 264 mg/dL (70-105); Potassium 3.8 mmol/L (3.5-5.1); Sodium 149 mmol/L (136-145)
[2023-04-26] MEDS: Ipratropium/Albuterol 3 ML NEB NEB SCH ×3 (06:58→21:56)
[2023-04-26] MEDS: Mometasone 200 MCG/Formoterol 5 MCG 120 PUFF INHALER INH SCH ×2 (07:01→19:56)
[2023-04-26] MEDS: Carvedilol 3.125 MG TAB PO SCH ×2 (08:58→20:39)
[2023-04-26] MEDS: Folic Acid 1 MG TAB PO SCH (08:58)
[2023-04-26] MEDS: Atorvastatin Calcium 20 MG TAB PO SCH (08:58)
[2023-04-26] MEDS: Aspirin Chewable 81 MG TAB PO SCH (08:58)
[2023-04-26] MEDS: Pantoprazole 40 MG VIAL IVP SCH (09:00)
[2023-04-26] MEDS: Torsemide 20 MG TAB PO SCH (09:01)
[2023-04-26] MEDS: Ketoconazole 2% Cream 15 gm Tube TOP SCH ×2 (09:03→21:25)
[2023-04-26 10:21] LABS: CO2 Tension 90.2 mmHg (35.0-45.0); O2 Tension (PaO2), arterial 58.7 mmHg (80.0-100.0)
[2023-04-26 10:44] LABS: CO2 Tension 85.3 mmHg (35.0-45.0)
[2023-04-26 10:46] LABS: CO2 Tension 82.8 mmHg (35.0-45.0)
[2023-04-26 10:47] LABS: O2 Tension (PaO2), arterial 47.9 mmHg (80.0-100.0)
[2023-04-26] MEDS: LevoFLOXacin 750 mg/D5W 750 MG in Premix Bag 1 BAG IVPB SCH (10:52)
[2023-04-26] MEDS: HumaLOG 300 UNITS/3 ML VIAL SC PRN (13:41)
[2023-04-26] MEDS ORDERED: hydrALAZINE 20 MG/ML VIAL SLOW IVP PRN (19:22)
[2023-04-26 19:25] LABS: Actual Bicarbonate (HCO3a) 38.7 mEq/L (22-28); Carboxyhemoglobin (COHb) 0.5 gm% (0.0-3.0); Hematocrit-ABG 34 % (42.0-52.0); Hemoglobin (Hb) 11.4 g/dL (14.0-18.0)
[2023-04-26 19:27] LABS: CO2 Tension 68.4 mmHg (35.0-45.0); Puncture Site LRA
[2023-04-26] MEDS ORDERED: Furosemide 40 MG/4 ML VIAL SLOW IVP SCH (19:30)
[2023-04-27] MEDS: HumaLOG 300 UNITS/3 ML VIAL SC PRN ×4 (00:05→17:38)
[2023-04-27] MEDS: methylPREDNISolone Sod Succ 40 MG VIAL IVP SCH ×5 (00:05→23:29)
[2023-04-27] MEDS: Meropenem 1 GM in Sodium Chloride 0.9% 100 ML IVPB SCH ×3 (02:21→18:33)
[2023-04-27] MEDS ORDERED: Morphine 2 MG/ML VIAL SLOW IVP PRN (03:58)
[2023-04-27 04:06] LABS: #Monocytes 0.2 thou/uL (0.11-0.59); #Neutrophils 3.1 thou/uL (1.40-6.50); %Basophils 0.2 % (0.0-1.0); %Lymphocytes 16.1 % (21.0-51.0); %Monocytes 5.9 % (0.0-10.0); %Neutrophils 75.6 % (42.0-75.0); Mean Corpuscular HGB CONC 29.9 g/dL (32.0-36.0); Mean Corpuscular Hemoglobin 30.2 pg (27.0-31.0); Mean Corpuscular Volume 101.2 fl (78.0-98.0); Mean Platelet Volume 9.4 fL (7.4-10.4); Platelet Count 121 10x3/uL (130-400); RBC Distribution Width 15.9 % (11.5-14.5); Red Blood Cell (RBC) Count 3.31 mill/uL (4.70-6.10)
[2023-04-27 04:31] LABS: Vancomycin, Trough 21.5 ug/mL
[2023-04-27 04:39] LABS: ALT (SGPT) 19 U/L (8-55); Albumin 2.8 g/dL (3.5-5.0); Alkaline Phosphatase 130 U/L (40-110)
[2023-04-27 04:42] LABS: Anion Gap 18 mmol/L (10-20); Carbon Dioxide 37 mmol/L (22-29); Chloride 100 mmol/L (98-107)
[2023-04-27 04:45] LABS: AST (SGOT) 12 U/L (5-34); BUN (Urea Nitrogen) 24 mg/dL (8.4-25.7); Bilirubin, Total 0.2 mg/dL (0.2-1.2); Calc. Creatinine Clearance 144 mL/min (70-130); Calcium 8.4 mg/dL (7.8-10.44); Estimated GFR 106; Globulin 3.9 g/dL (2.4-3.5); Glucose 199 mg/dL (70-105); Protein, Total 6.7 g/dL (6.0-8.3); Sodium 152 mmol/L (136-145)
[2023-04-27] MEDS: Vancomycin HCl 750 MG in Sodium Chloride 0.9% 250 ML 250 ML IVPB SCH ×2 (05:02→17:20)
[2023-04-27] MEDS: Dextrose 5 %-0.45 % NaCl 1,000 ML IV SCH ×2 (05:03→17:22)
[2023-04-27] MEDS: Ipratropium/Albuterol 3 ML NEB NEB SCH ×3 (07:19→21:36)
[2023-04-27] MEDS: Mometasone 200 MCG/Formoterol 5 MCG 120 PUFF INHALER INH SCH ×2 (07:20→19:44)
[2023-04-27] MEDS ORDERED: Potassium Chloride 20 MEQ TAB PO SCH (08:00)
[2023-04-27] MEDS: Aspirin Chewable 81 MG TAB PO SCH (08:56)
[2023-04-27] MEDS: Atorvastatin Calcium 20 MG TAB PO SCH (08:56)
[2023-04-27] MEDS: Pantoprazole 40 MG VIAL IVP SCH (08:56)
[2023-04-27] MEDS: Folic Acid 1 MG TAB PO SCH (08:56)
[2023-04-27] MEDS: Carvedilol 3.125 MG TAB PO SCH ×2 (08:56→19:39)
[2023-04-27] MEDS: LevoFLOXacin 750 mg/D5W 750 MG in Premix Bag 1 BAG IVPB SCH (08:57)
[2023-04-27] MEDS: Nystatin Powder 15 GM BOT TOP PRN (08:58)
[2023-04-27] MEDS: Ketoconazole 2% Cream 15 gm Tube TOP SCH ×2 (11:29→19:45)
[2023-04-28] MEDS: Meropenem 1 GM in Sodium Chloride 0.9% 100 ML IVPB SCH ×3 (02:36→17:03)
[2023-04-28 04:29] LABS: #Monocytes 0.2 thou/uL (0.11-0.59); #Neutrophils 3.6 thou/uL (1.40-6.50); %Lymphocytes 12.9 % (21.0-51.0); %Monocytes 4.7 % (0.0-10.0); %Neutrophils 79.3 % (42.0-75.0); Hemoglobin 10.1 g/dL (14.0-18.0); Mean Corpuscular HGB CONC 29.1 g/dL (32.0-36.0); Mean Corpuscular Hemoglobin 29.9 pg (27.0-31.0); Mean Corpuscular Volume 102.7 fl (78.0-98.0); Platelet Count 127 10x3/uL (130-400); RBC Distribution Width 15.6 % (11.5-14.5); Red Blood Cell (RBC) Count 3.38 mill/uL (4.70-6.10); White Blood Cell (WBC) Count 4.5 10x3/uL (4.8-10.8)
[2023-04-28 04:51] LABS: ALT (SGPT) 26 U/L (8-55); AST (SGOT) 30 U/L (5-34); Albumin 2.7 g/dL (3.5-5.0); Alkaline Phosphatase 131 U/L (40-110); BUN (Urea Nitrogen) 31 mg/dL (8.4-25.7); Bilirubin, Total 0.2 mg/dL (0.2-1.2); Calc. Creatinine Clearance 124 mL/min (70-130); Calcium 8.4 mg/dL (7.8-10.44); Estimated GFR 102; Globulin 3.5 g/dL (2.4-3.5); Glucose 369 mg/dL (70-105); Protein, Total 6.2 g/dL (6.0-8.3)
[2023-04-28 05:00] LABS: Anion Gap 15 mmol/L (10-20); Carbon Dioxide 38 mmol/L (22-29); Chloride 99 mmol/L (98-107); Potassium 3.3 mmol/L (3.5-5.1); Sodium 149 mmol/L (136-145)
[2023-04-28] MEDS: methylPREDNISolone Sod Succ 40 MG VIAL IVP SCH ×3 (05:45→17:04)
[2023-04-28] MEDS: Vancomycin HCl 750 MG in Sodium Chloride 0.9% 250 ML 250 ML IVPB SCH ×2 (05:45→16:53)
[2023-04-28] MEDS: HumaLOG 300 UNITS/3 ML VIAL SC PRN ×4 (06:01→16:30)
[2023-04-28] MEDS: Ipratropium/Albuterol 3 ML NEB NEB SCH ×3 (07:25→21:51)
[2023-04-28] MEDS: Mometasone 200 MCG/Formoterol 5 MCG 120 PUFF INHALER INH SCH ×3 (07:35→21:51)
[2023-04-28] MEDS: Pantoprazole 40 MG VIAL IVP SCH (07:43)
[2023-04-28] MEDS: Folic Acid 1 MG TAB PO SCH (07:43)
[2023-04-28] MEDS: Aspirin Chewable 81 MG TAB PO SCH (07:44)
[2023-04-28] MEDS: Carvedilol 3.125 MG TAB PO SCH ×2 (07:44→21:46)
[2023-04-28] MEDS: Potassium Chloride 20 MEQ in Premix Bag 1 BAG IVPB SCH ×2 (07:44→08:53)
[2023-04-28] MEDS: Torsemide 20 MG TAB PO SCH (07:44)
[2023-04-28] MEDS: LevoFLOXacin 750 mg/D5W 750 MG in Premix Bag 1 BAG IVPB SCH (07:44)
[2023-04-28] MEDS: Atorvastatin Calcium 20 MG TAB PO SCH (07:46)
[2023-04-28] MEDS: Ketoconazole 2% Cream 15 gm Tube TOP SCH ×2 (07:47→21:45)
[2023-04-28] MEDS: Dextrose 5 %-0.45 % NaCl 1,000 ML IV SCH ×2 (09:17→16:30)
[2023-04-28] MEDS ORDERED: Insulin Glargine 30 UNITS/0.3 ML VIAL SC SCH (09:30)
[2023-04-28 16:39] LABS: Vancomycin, Trough 15.5 ug/mL
[2023-04-28] MEDS: Melatonin 3 MG TAB PO PRN (21:46)
[2023-04-29] MEDS: methylPREDNISolone Sod Succ 40 MG VIAL IVP SCH ×5 (00:40→23:23)
[2023-04-29] MEDS: Meropenem 1 GM in Sodium Chloride 0.9% 100 ML IVPB SCH ×3 (03:39→17:22)
[2023-04-29] MEDS: Vancomycin HCl 750 MG in Sodium Chloride 0.9% 250 ML 250 ML IVPB SCH ×2 (03:40→17:23)
[2023-04-29 04:26] LABS: #Monocytes 0.2 thou/uL (0.11-0.59); #Neutrophils 2.9 thou/uL (1.40-6.50); %Basophils 0.3 % (0.0-1.0); %Lymphocytes 14.7 % (21.0-51.0); %Monocytes 5.9 % (0.0-10.0); %Neutrophils 76.2 % (42.0-75.0); Hemoglobin 9.5 g/dL (14.0-18.0); Mean Corpuscular HGB CONC 28.8 g/dL (32.0-36.0); Mean Corpuscular Hemoglobin 29.5 pg (27.0-31.0); Mean Corpuscular Volume 102.5 fl (78.0-98.0); RBC Distribution Width 15.5 % (11.5-14.5); Red Blood Cell (RBC) Count 3.22 mill/uL (4.70-6.10); White Blood Cell (WBC) Count 3.7 10x3/uL (4.8-10.8)
[2023-04-29 04:28] LABS: Platelet Count 99 10x3/uL (130-400)
[2023-04-29 05:00] LABS: ALT (SGPT) 21 U/L (8-55); AST (SGOT) 17 U/L (5-34); Albumin 2.7 g/dL (3.5-5.0); Alkaline Phosphatase 125 U/L (40-110); BUN (Urea Nitrogen) 27 mg/dL (8.4-25.7); Bilirubin, Total 0.2 mg/dL (0.2-1.2); Calc. Creatinine Clearance 138 mL/min (70-130); Calcium 8.5 mg/dL (7.8-10.44); Estimated GFR 105; Globulin 3.3 g/dL (2.4-3.5); Glucose 398 mg/dL (70-105)
[2023-04-29] MEDS: HumaLOG 300 UNITS/3 ML VIAL SC PRN ×3 (05:04→23:23)
[2023-04-29 05:09] LABS: Anion Gap 14 mmol/L (10-20); Carbon Dioxide 42 mmol/L (22-29); Chloride 97 mmol/L (98-107); Potassium 3.4 mmol/L (3.5-5.1); Sodium 150 mmol/L (136-145)
[2023-04-29] MEDS: Ipratropium/Albuterol 3 ML NEB NEB SCH ×3 (07:10→21:43)
[2023-04-29] MEDS: Mometasone 200 MCG/Formoterol 5 MCG 120 PUFF INHALER INH SCH ×2 (07:11→21:42)
[2023-04-29] MEDS ORDERED: Potassium Chloride 20 MEQ TAB PO SCH (08:00)
[2023-04-29] MEDS: Carvedilol 3.125 MG TAB PO SCH ×2 (10:12→20:27)
[2023-04-29] MEDS: Atorvastatin Calcium 20 MG TAB PO SCH (10:13)
[2023-04-29] MEDS: Aspirin Chewable 81 MG TAB PO SCH (10:13)
[2023-04-29] MEDS: Folic Acid 1 MG TAB PO SCH (10:13)
[2023-04-29] MEDS: Pantoprazole 40 MG VIAL IVP SCH (10:14)
[2023-04-29] MEDS: LevoFLOXacin 750 mg/D5W 750 MG in Premix Bag 1 BAG IVPB SCH (10:14)
[2023-04-29] MEDS: Insulin Glargine 30 UNITS/0.3 ML VIAL SC SCH (10:15)
[2023-04-29] MEDS: Dextrose 5%-Lactated Ringers 1,000 ML IV SCH ×2 (10:47→17:23)
[2023-04-29 13:22] LABS: Actual Bicarbonate (HCO3a) 49.4 mEq/L (22-28); Calcium, Ionized (arterial) 1.15 mmol/L (1.12-1.30); Carboxyhemoglobin (COHb) 0.4 gm% (0.0-3.0); Hematocrit-ABG 33 % (42.0-52.0); Hemoglobin (Hb) 11.2 g/dL (14.0-18.0); O2 Tension (PaO2), arterial 68.4 mmHg (80.0-100.0); Potassium - ABG Lab 3.03 mmol/L (3.70-5.30)
[2023-04-29 13:23] LABS: ALV-art Gradient 76.405 mmHg (0-20); CO2 Tension 89.5 mmHg (35.0-45.0); Puncture Site LRA
[2023-04-29] MEDS: Ketoconazole 2% Cream 15 gm Tube TOP SCH ×2 (13:36→20:30)
[2023-04-29] MEDS: Insulin NPH Human Isophane 100 UNITS/ML (10 ML VIAL) SC SCH ×3 (13:41→23:23)
[2023-04-29] MEDS ORDERED: Insulin NPH Human Isophane 100 UNITS/ML (10 ML VIAL) SC SCH ×2 (18:00→19:43)
[2023-04-29 19:02] LABS: BUN (Urea Nitrogen) 22 mg/dL (8.4-25.7); Calc. Creatinine Clearance 156 mL/min (70-130); Calcium 8.6 mg/dL (7.8-10.44); Estimated GFR 109; Glucose 392 mg/dL (70-105)
[2023-04-29 19:10] LABS: Carbon Dioxide Greater than 37 mmol/L (22-29); Chloride 101 mmol/L (98-107); Potassium 3.1 mmol/L (3.5-5.1); Sodium 152 mmol/L (136-145)
[2023-04-29 19:21] LABS: Actual Bicarbonate (HCO3a) 47.5 mEq/L (22-28); Base Excess (BEa) 19.2 mEq/L (-2.0 to +3.0); Calcium, Ionized (arterial) 1.15 mmol/L (1.12-1.30); Carboxyhemoglobin (COHb) 0.5 gm% (0.0-3.0); Hematocrit-ABG 31 % (42.0-52.0); Hemoglobin (Hb) 10.7 g/dL (14.0-18.0); O2 Tension (PaO2), arterial 93.9 mmHg (80.0-100.0); pH, Arterial 7.395 (7.35-7.45)
[2023-04-29 19:22] LABS: ALV-art Gradient 163.475 mmHg (0-20); CO2 Tension 79.3 mmHg (35.0-45.0); Puncture Site RRA
[2023-04-29] MEDS ORDERED: Lactated Ringer's 1,000 ML IV SCH (19:45)
[2023-04-29] MEDS ORDERED: Lactated Ringer's 500 ML IV SCH (20:00)
[2023-04-29] MEDS ORDERED: HUMULIN R 100 UNITS in Sodium Chloride 0.9% 100 ML IVPB SCH (20:15)
[2023-04-29] MEDS ORDERED: HumaLOG 300 UNITS/3 ML VIAL SC SCH (20:15)
[2023-04-29] MEDS: Potassium Chloride 20 MEQ in Premix Bag 1 BAG IVPB SCH ×2 (20:20→21:55)
[2023-04-29] MEDS ORDERED: Dextrose 5% in Water 1,000 ML IV SCH ×3 (20:45→23:59)
[2023-04-29 20:47] LABS: Sodium 152 mmol/L (136-145)
[2023-04-29 23:38] LABS: BUN (Urea Nitrogen) 18 mg/dL (8.4-25.7); Calc. Creatinine Clearance 180 mL/min (70-130); Calcium 8.5 mg/dL (7.8-10.44); Estimated GFR 114; Glucose 250 mg/dL (70-105)
[2023-04-29 23:47] LABS: Anion Gap 13 mmol/L (10-20); Carbon Dioxide 41 mmol/L (22-29); Chloride 103 mmol/L (98-107); Potassium 3.6 mmol/L (3.5-5.1)
[2023-04-29 23:50] LABS: Sodium 153 mmol/L (136-145)
[2023-04-30] MEDS: Meropenem 1 GM in Sodium Chloride 0.9% 100 ML IVPB SCH ×3 (01:50→17:00)
[2023-04-30] MEDS: HumaLOG 300 UNITS/3 ML VIAL SC PRN ×2 (03:19→16:14)
[2023-04-30 03:34] LABS: #Monocytes 0.3 thou/uL (0.11-0.59); #Neutrophils 3.2 thou/uL (1.40-6.50); %Lymphocytes 10.7 % (21.0-51.0); %Monocytes 6.6 % (0.0-10.0); %Neutrophils 80.7 % (42.0-75.0); Mean Corpuscular HGB CONC 29.3 g/dL (32.0-36.0); Mean Corpuscular Volume 102.3 fl (78.0-98.0); Mean Platelet Volume 9.8 fL (7.4-10.4); RBC Distribution Width 15.6 % (11.5-14.5); White Blood Cell (WBC) Count 3.9 10x3/uL (4.8-10.8)
[2023-04-30 04:39] LABS: Anion Gap 10 mmol/L (10-20); Carbon Dioxide 42 mmol/L (22-29); Chloride 100 mmol/L (98-107); Potassium 3.4 mmol/L (3.5-5.1); Sodium 149 mmol/L (136-145)
[2023-04-30 04:45] LABS: ALT (SGPT) 26 U/L (8-55); AST (SGOT) 20 U/L (5-34); Albumin 2.4 g/dL (3.5-5.0); Alkaline Phosphatase 109 U/L (40-110); BUN (Urea Nitrogen) 18 mg/dL (8.4-25.7); Bilirubin, Total Less than 0.2 mg/dL (0.2-1.2); Calc. Creatinine Clearance 191 mL/min (70-130); Calcium 8.3 mg/dL (7.8-10.44); Estimated GFR 115; Globulin 2.9 g/dL (2.4-3.5); Glucose 231 mg/dL (70-105); Protein, Total 5.3 g/dL (6.0-8.3)
[2023-04-30] MEDS: Dextrose 5% in Water 1,000 ML IV SCH ×2 (05:00→15:10)
[2023-04-30 05:11] LABS: Platelet Count 81 10x3/uL (130-400)
[2023-04-30] MEDS: methylPREDNISolone Sod Succ 40 MG VIAL IVP SCH ×4 (05:27→23:38)
[2023-04-30] MEDS: Insulin NPH Human Isophane 100 UNITS/ML (10 ML VIAL) SC SCH ×4 (05:28→23:37)
[2023-04-30] MEDS: Vancomycin HCl 750 MG in Sodium Chloride 0.9% 250 ML 250 ML IVPB SCH (05:29)
[2023-04-30] MEDS ORDERED: Potassium Chloride 20 MEQ TAB PO SCH (06:45)
[2023-04-30] MEDS: Ipratropium/Albuterol 3 ML NEB NEB SCH ×3 (07:16→22:32)
[2023-04-30] MEDS: Mometasone 200 MCG/Formoterol 5 MCG 120 PUFF INHALER INH SCH ×2 (07:17→18:51)
[2023-04-30 07:51] LABS: Sodium 149 mmol/L (136-145)
[2023-04-30] MEDS: Carvedilol 3.125 MG TAB PO SCH ×2 (09:27→20:50)
[2023-04-30] MEDS: Aspirin Chewable 81 MG TAB PO SCH (09:27)
[2023-04-30] MEDS: Atorvastatin Calcium 20 MG TAB PO SCH (09:27)
[2023-04-30] MEDS: Folic Acid 1 MG TAB PO SCH (09:27)
[2023-04-30] MEDS: Pantoprazole 40 MG VIAL IVP SCH (09:29)
[2023-04-30] MEDS: Ketoconazole 2% Cream 15 gm Tube TOP SCH ×2 (09:31→20:51)
[2023-04-30] MEDS: Insulin Glargine 30 UNITS/0.3 ML VIAL SC SCH (10:01)
[2023-04-30] MEDS: LevoFLOXacin 750 mg/D5W 750 MG in Premix Bag 1 BAG IVPB SCH (10:02)
[2023-04-30] MEDS: Potassium Chloride 20 MEQ in Premix Bag 1 BAG IVPB SCH ×2 (10:44→13:33)
[2023-04-30] MEDS ORDERED: Vancomycin HCl 750 MG in Sodium Chloride 0.9% 250 ML 250 ML IVPB SCH (17:00)
[2023-05-01] MEDS: HumaLOG 300 UNITS/3 ML VIAL SC PRN (03:36)
[2023-05-01] MEDS: Dextrose 5% in Water 1,000 ML IV SCH ×2 (03:37→12:40)
[2023-05-01 04:00] LABS: #Monocytes 0.3 thou/uL (0.11-0.59); #Neutrophils 5.1 thou/uL (1.40-6.50); %Basophils 0.2 % (0.0-1.0); %Lymphocytes 8.2 % (21.0-51.0); %Monocytes 4.3 % (0.0-10.0); %Neutrophils 84.3 % (42.0-75.0); Hemoglobin 9.5 g/dL (14.0-18.0); Mean Corpuscular HGB CONC 29.7 g/dL (32.0-36.0); Mean Corpuscular Hemoglobin 29.5 pg (27.0-31.0); Mean Corpuscular Volume 99.4 fl (78.0-98.0); Platelet Count 90 10x3/uL (130-400); RBC Distribution Width 15.1 % (11.5-14.5); Red Blood Cell (RBC) Count 3.22 mill/uL (4.70-6.10); White Blood Cell (WBC) Count 6.1 10x3/uL (4.8-10.8)
[2023-05-01 04:28] LABS: ALT (SGPT) 32 U/L (8-55); AST (SGOT) 29 U/L (5-34); Albumin 2.4 g/dL (3.5-5.0); Alkaline Phosphatase 110 U/L (40-110); BUN (Urea Nitrogen) 17 mg/dL (8.4-25.7); Bilirubin, Total 0.3 mg/dL (0.2-1.2); Calc. Creatinine Clearance 194 mL/min (70-130); Calcium 8.3 mg/dL (7.8-10.44); Estimated GFR 116; Globulin 2.8 g/dL (2.4-3.5); Glucose 202 mg/dL (70-105); Protein, Total 5.2 g/dL (6.0-8.3)
[2023-05-01 04:34] LABS: Anion Gap 12 mmol/L (10-20); Carbon Dioxide 39 mmol/L (22-29); Chloride 95 mmol/L (98-107); Potassium 3.2 mmol/L (3.5-5.1); Sodium 143 mmol/L (136-145)
[2023-05-01] MEDS: Insulin NPH Human Isophane 100 UNITS/ML (10 ML VIAL) SC SCH ×3 (05:51→17:08)
[2023-05-01] MEDS: methylPREDNISolone Sod Succ 40 MG VIAL IVP SCH ×3 (05:51→17:08)
[2023-05-01] MEDS: Ipratropium/Albuterol 3 ML NEB NEB SCH ×3 (06:50→22:11)
[2023-05-01] MEDS: Mometasone 200 MCG/Formoterol 5 MCG 120 PUFF INHALER INH SCH ×2 (06:50→18:54)
[2023-05-01] MEDS ORDERED: Potassium Chloride 20 MEQ in Premix Bag 1 BAG IVPB SCH (09:00)
[2023-05-01] MEDS: Potassium Chloride 20 MEQ in Premix Bag 1 BAG IVPB SCH ×2 (09:07→12:39)
[2023-05-01] MEDS: Folic Acid 1 MG TAB PO SCH (09:08)
[2023-05-01] MEDS: Carvedilol 3.125 MG TAB PO SCH ×2 (09:08→20:54)
[2023-05-01] MEDS: Aspirin Chewable 81 MG TAB PO SCH (09:08)
[2023-05-01] MEDS: Pantoprazole 40 MG VIAL IVP SCH (09:08)
[2023-05-01] MEDS: Atorvastatin Calcium 20 MG TAB PO SCH (09:08)
[2023-05-01] MEDS: Ketoconazole 2% Cream 15 gm Tube TOP SCH ×2 (09:10→20:48)
[2023-05-01] MEDS: Insulin Glargine 30 UNITS/0.3 ML VIAL SC SCH (09:14)
[2023-05-01] MEDS: Albumin 25% 25 GM/100 ML BOT IVPB SCH ×2 (12:39→17:08)
[2023-05-02] MEDS: Insulin NPH Human Isophane 100 UNITS/ML (10 ML VIAL) SC SCH ×4 (00:41→18:01)
[2023-05-02] MEDS: methylPREDNISolone Sod Succ 40 MG VIAL IVP SCH ×4 (00:42→18:01)
[2023-05-02 04:15] LABS: #Monocytes 0.3 thou/uL (0.11-0.59); #Neutrophils 5.9 thou/uL (1.40-6.50); %Basophils 0.3 % (0.0-1.0); %Lymphocytes 7.6 % (21.0-51.0); %Monocytes 4.4 % (0.0-10.0); %Neutrophils 83.7 % (42.0-75.0); Hemoglobin 9.5 g/dL (14.0-18.0); Mean Corpuscular HGB CONC 29.6 g/dL (32.0-36.0); Mean Corpuscular Hemoglobin 30.2 pg (27.0-31.0); Mean Corpuscular Volume 101.9 fl (78.0-98.0); Mean Platelet Volume 9.3 fL (7.4-10.4); RBC Distribution Width 15.7 % (11.5-14.5); Red Blood Cell (RBC) Count 3.15 mill/uL (4.70-6.10)
[2023-05-02 04:36] LABS: Platelet Count 95 10x3/uL (130-400)
[2023-05-02 04:38] LABS: ALT (SGPT) 33 U/L (8-55); AST (SGOT) 26 U/L (5-34); Albumin 3.2 g/dL (3.5-5.0); Alkaline Phosphatase 97 U/L (40-110); BUN (Urea Nitrogen) 17 mg/dL (8.4-25.7); Bilirubin, Total 0.4 mg/dL (0.2-1.2); Calc. Creatinine Clearance 211 mL/min (70-130); Calcium 9.1 mg/dL (7.8-10.44); Estimated GFR 118; Globulin 2.4 g/dL (2.4-3.5); Glucose 87 mg/dL (70-105); Protein, Total 5.6 g/dL (6.0-8.3)
[2023-05-02 04:48] LABS: Anion Gap 11 mmol/L (10-20); Carbon Dioxide 48 mmol/L (22-29); Chloride 100 mmol/L (98-107); Potassium 3.1 mmol/L (3.5-5.1)
[2023-05-02 04:50] LABS: Sodium 156 mmol/L (136-145)
[2023-05-02] MEDS ORDERED: Dextrose 5% in Water 1,000 ML IV SCH ×3 (05:45→18:30)
[2023-05-02] MEDS ORDERED: Potassium Chloride 20 MEQ in Premix Bag 1 BAG IVPB SCH (06:00)
[2023-05-02] MEDS ORDERED: Potassium Bicarbonate/Cit Ac 20 MEQ TAB PO SCH (06:00)
[2023-05-02] MEDS: Ipratropium/Albuterol 3 ML NEB NEB SCH ×3 (07:06→22:19)
[2023-05-02] MEDS: Mometasone 200 MCG/Formoterol 5 MCG 120 PUFF INHALER INH SCH ×2 (07:07→22:20)
[2023-05-02] MEDS ORDERED: Lactated Ringer's 1,000 ML IV SCH (09:00)
[2023-05-02] MEDS: Atorvastatin Calcium 20 MG TAB PO SCH (09:14)
[2023-05-02] MEDS: Aspirin Chewable 81 MG TAB PO SCH (09:14)
[2023-05-02] MEDS: Carvedilol 3.125 MG TAB PO SCH ×2 (09:14→19:37)
[2023-05-02] MEDS: Pantoprazole 40 MG VIAL IVP SCH (09:15)
[2023-05-02] MEDS: Folic Acid 1 MG TAB PO SCH (09:15)
[2023-05-02] MEDS: Insulin Glargine 30 UNITS/0.3 ML VIAL SC SCH (09:22)
[2023-05-02] MEDS: Ketoconazole 2% Cream 15 gm Tube TOP SCH ×2 (09:23→19:43)
[2023-05-02] MEDS: Dextrose 5% in Water 1,000 ML IV SCH ×4 (09:27→23:03)
[2023-05-02] MEDS: Lactated Ringer's 1,000 ML IV SCH ×2 (09:27→16:52)
[2023-05-02 09:52] LABS: BUN (Urea Nitrogen) 17 mg/dL (8.4-25.7); Calc. Creatinine Clearance 195 mL/min (70-130); Calcium 9.1 mg/dL (7.8-10.44); Estimated GFR 115; Glucose 142 mg/dL (70-105)
[2023-05-02 10:01] LABS: Anion Gap 18 mmol/L (10-20); Carbon Dioxide 41 mmol/L (22-29); Chloride 101 mmol/L (98-107); Potassium 3.6 mmol/L (3.5-5.1)
[2023-05-02 10:12] LABS: Sodium 156 mmol/L (136-145)
[2023-05-02 13:25] LABS: Sodium 153 mmol/L (136-145)
[2023-05-02] MEDS: Acetaminophen 325 MG TAB PO PRN (14:05)
[2023-05-02 17:36] LABS: Sodium 154 mmol/L (136-145)
[2023-05-02] MEDS: HumaLOG 300 UNITS/3 ML VIAL SC PRN (19:44)
[2023-05-02 20:28] LABS: Sodium 153 mmol/L (136-145)
[2023-05-03] MEDS: Insulin NPH Human Isophane 100 UNITS/ML (10 ML VIAL) SC SCH ×3 (00:02→18:25)
[2023-05-03] MEDS: HumaLOG 300 UNITS/3 ML VIAL SC PRN ×3 (00:03→08:49)
[2023-05-03] MEDS: methylPREDNISolone Sod Succ 40 MG VIAL IVP SCH ×4 (00:08→18:25)
[2023-05-03 01:37] LABS: Sodium 152 mmol/L (136-145)
[2023-05-03] MEDS: Dextrose 5% in Water 1,000 ML IV SCH ×3 (04:26→16:24)
[2023-05-03 04:41] LABS: #Monocytes 0.7 thou/uL (0.11-0.59); #Neutrophils 14.1 thou/uL (1.40-6.50); %Basophils 0.1 % (0.0-1.0); %Lymphocytes 2.4 % (21.0-51.0); %Monocytes 4.5 % (0.0-10.0); Hemoglobin 9.6 g/dL (14.0-18.0); Mean Corpuscular HGB CONC 28.2 g/dL (32.0-36.0); Mean Corpuscular Hemoglobin 30.2 pg (27.0-31.0); Mean Corpuscular Volume 106.9 fl (78.0-98.0); Platelet Count 110 10x3/uL (130-400); RBC Distribution Width 15.5 % (11.5-14.5); Red Blood Cell (RBC) Count 3.18 mill/uL (4.70-6.10); White Blood Cell (WBC) Count 15.5 10x3/uL (4.8-10.8)
[2023-05-03 05:07] LABS: ALT (SGPT) 63 U/L (8-55); AST (SGOT) 43 U/L (5-34); Alkaline Phosphatase 126 U/L (40-110); BUN (Urea Nitrogen) 23 mg/dL (8.4-25.7); Bilirubin, Total 0.3 mg/dL (0.2-1.2); Calc. Creatinine Clearance 177 mL/min (70-130); Calcium 8.7 mg/dL (7.8-10.44); Estimated GFR 112; Globulin 2.4 g/dL (2.4-3.5); Glucose 316 mg/dL (70-105); Protein, Total 5.4 g/dL (6.0-8.3)
[2023-05-03 05:16] LABS: Anion Gap 8 mmol/L (10-20); Carbon Dioxide 48 mmol/L (22-29); Chloride 95 mmol/L (98-107); Potassium 3.4 mmol/L (3.5-5.1); Sodium 148 mmol/L (136-145)
[2023-05-03 05:17] LABS: Anisocytosis SLIGHT = 6-15 cells HPF (0-5); CellaVision Operator ID lab.abc; Hypochromia SLIGHT = 6-15 cells HPF (0-5); Macrocytosis SLIGHT = 6-15 cells HPF (0-5); Platelet Adequacy Comment Platelets Decreased
[2023-05-03] MEDS: Ipratropium/Albuterol 3 ML NEB NEB SCH ×3 (07:25→22:50)
[2023-05-03] MEDS: Mometasone 200 MCG/Formoterol 5 MCG 120 PUFF INHALER INH SCH ×2 (07:25→19:10)
[2023-05-03] MEDS: Potassium Chloride 20 MEQ in Premix Bag 1 BAG IVPB SCH ×2 (08:23→12:09)
[2023-05-03] MEDS: Aspirin Chewable 81 MG TAB PO SCH (08:25)
[2023-05-03] MEDS: Carvedilol 3.125 MG TAB PO SCH ×2 (08:25→20:51)
[2023-05-03] MEDS: Atorvastatin Calcium 20 MG TAB PO SCH (08:25)
[2023-05-03] MEDS: Folic Acid 1 MG TAB PO SCH (08:25)
[2023-05-03] MEDS: Insulin Glargine 30 UNITS/0.3 ML VIAL SC SCH (08:26)
[2023-05-03] MEDS: Pantoprazole 40 MG VIAL IVP SCH (08:26)
[2023-05-03] MEDS ORDERED: Insulin NPH Human Isophane 100 UNITS/ML (10 ML VIAL) SC SCH (08:49)
[2023-05-03 09:07] LABS: Sodium 148 mmol/L (136-145)
[2023-05-03] MEDS: Ketoconazole 2% Cream 15 gm Tube TOP SCH ×2 (09:17→21:03)
[2023-05-03 09:20] LABS: Actual Bicarbonate (HCO3a) 50.3 mEq/L (22-28); Base Excess (BEa) 17.4 mEq/L (-2.0 to +3.0); Calcium, Ionized (arterial) 1.19 mmol/L (1.12-1.30); Carboxyhemoglobin (COHb) 0.8 gm% (0.0-3.0); Hematocrit-ABG 32 % (42.0-52.0); Hemoglobin (Hb) 10.8 g/dL (14.0-18.0); O2 Tension (PaO2), arterial 69.2 mmHg (80.0-100.0); Potassium - ABG Lab 3.59 mmol/L (3.70-5.30)
[2023-05-03] MEDS ORDERED: Propofol 1,000 MG/100 ML VIAL IV ONE (09:54)
[2023-05-03] MEDS ORDERED: Fentanyl CADD 100 ML ONE (09:55)
[2023-05-03 09:58] LABS: Puncture Site LRA; pH, Arterial 7.183 (7.35-7.45)
[2023-05-03] MEDS ORDERED: Ventilator Sedation Protocol 1 EACH FS SCH (10:15)
[2023-05-03 10:28] LABS: Actual Bicarbonate (HCO3a) 37.2 mEq/L (22-28); Base Excess (BEa) 10.7 mEq/L (-2.0 to +3.0); Calcium, Ionized (arterial) 1.09 mmol/L (1.12-1.30); Carboxyhemoglobin (COHb) 0.8 gm% (0.0-3.0); Hematocrit-ABG 31 % (42.0-52.0); Hemoglobin (Hb) 10.4 g/dL (14.0-18.0); O2 Tension (PaO2), arterial 60.8 mmHg (80.0-100.0); Potassium - ABG Lab 3.95 mmol/L (3.70-5.30); pH, Arterial 7.409 (7.35-7.45)
[2023-05-03] MEDS ORDERED: Propofol BOLUS 1,000 MG/100 ML VIAL IV PRN (10:30)
[2023-05-03] MEDS ORDERED: Fentanyl CADD 100 ML IV SCH (10:30)
[2023-05-03] MEDS ORDERED: DISCONTINUE PREVIOUS NARCOTIC PAIN MEDICATIONS AND BENZODIAZEPINES FS SCH (10:30)
[2023-05-03] MEDS ORDERED: Propofol 1,000 MG/100 ML VIAL IV PRN (10:30)
[2023-05-03] MEDS ORDERED: Lorazepam 2 MG/ML VIAL SLOW IVP PRN (10:30)
[2023-05-03] MEDS ORDERED: Fentanyl BOLUS 250 ML IVPB PRN (10:30)
[2023-05-03 11:25] LABS: ALV-art Gradient 149.275 mmHg (0-20); Puncture Site RRA
[2023-05-03] MEDS ORDERED: Sodium Chloride 0.9% 1,000 ML IV SCH ×2 (12:30→12:45)
[2023-05-03] MEDS ORDERED: NOREPINEPHRINE 8 MG/250 ML-D5W 250 ML IVPB SCH ×2 (13:00)
[2023-05-03 16:04] LABS: Sodium 143 mmol/L (136-145)
[2023-05-03] MEDS: Dextrose 50% Abboject 50 ML SYRINGE SLOW IVP PRN ×2 (16:41→20:59)
[2023-05-03] MEDS ORDERED: Dexmedetomidine 400 MCG, Admixture Fee 1 EACH in Sodium Chloride 0.9% 96 ML IVPB PRN (17:16)
[2023-05-03] MEDS ORDERED: Midazolam HCl 2 mg/2 ml Vial SLOW IVP SCH (19:30)
[2023-05-04] MEDS: Acetaminophen 325 MG TAB PO PRN ×2 (00:14→07:13)
[2023-05-04] MEDS: methylPREDNISolone Sod Succ 40 MG VIAL IVP SCH ×3 (00:14→22:19)
[2023-05-04] MEDS: Insulin NPH Human Isophane 100 UNITS/ML (10 ML VIAL) SC SCH ×2 (00:25→05:34)
[2023-05-04 04:14] LABS: #Monocytes 0.4 thou/uL (0.11-0.59); %Lymphocytes 12.3 % (21.0-51.0); %Monocytes 5.7 % (0.0-10.0); %Neutrophils 80.4 % (42.0-75.0); Hemoglobin 8.2 g/dL (14.0-18.0); Mean Corpuscular HGB CONC 30.7 g/dL (32.0-36.0); Mean Corpuscular Hemoglobin 30.1 pg (27.0-31.0); Mean Platelet Volume 11.3 fL (7.4-10.4); RBC Distribution Width 14.8 % (11.5-14.5); Red Blood Cell (RBC) Count 2.72 mill/uL (4.70-6.10); White Blood Cell (WBC) Count 6.2 10x3/uL (4.8-10.8)
[2023-05-04 04:51] LABS: ALT (SGPT) 41 U/L (8-55); AST (SGOT) 24 U/L (5-34); Albumin 2.5 g/dL (3.5-5.0); Alkaline Phosphatase 84 U/L (40-110); Anion Gap 10 mmol/L (10-20); BUN (Urea Nitrogen) 26 mg/dL (8.4-25.7); Bilirubin, Total 0.8 mg/dL (0.2-1.2); Calc. Creatinine Clearance 182 mL/min (70-130); Calcium 7.7 mg/dL (7.8-10.44); Carbon Dioxide 34 mmol/L (22-29); Chloride 99 mmol/L (98-107); Estimated GFR 113; Globulin 2.1 g/dL (2.4-3.5); Glucose 69 mg/dL (70-105); Potassium 2.7 mmol/L (3.5-5.1); Protein, Total 4.6 g/dL (6.0-8.3); Sodium 140 mmol/L (136-145)
[2023-05-04 05:05] LABS: Platelet Count 68 10x3/uL (130-400)
[2023-05-04 05:10] LABS: Mean Corpuscular Volume 98.2 fl (78.0-98.0)
[2023-05-04] MEDS ORDERED: CEFAZOLIN 1 GM VIAL SLOW IVP SCH (06:00)
[2023-05-04] MEDS ORDERED: CEFAZOLIN 1 GM in Sodium Chloride 0.9% 100 ML IVPB SCH (06:00)
[2023-05-04] MEDS ORDERED: Vecuronium 10 MG VIAL IVP SCH (06:00)
[2023-05-04] MEDS ORDERED: Lidocaine 1% w/Epinephrine 1:100K 20 ML VIAL IJ SCH (06:00)
[2023-05-04] MEDS: Potassium Chloride 20 MEQ in Premix Bag 1 BAG IVPB SCH ×4 (06:10→12:07)
[2023-05-04] MEDS: Ipratropium/Albuterol 3 ML NEB NEB SCH ×3 (06:27→22:20)
[2023-05-04] MEDS: Mometasone 200 MCG/Formoterol 5 MCG 120 PUFF INHALER INH SCH ×2 (06:34→19:09)
[2023-05-04 06:44] LABS: Base Excess (BEa) 10.2 mEq/L (-2.0 to +3.0); CO2 Tension 27.4 mmHg (35.0-45.0); Calcium, Ionized (arterial) 0.96 mmol/L (1.12-1.30); Carboxyhemoglobin (COHb) 0.7 gm% (0.0-3.0); Hematocrit-ABG 26 % (42.0-52.0); Hemoglobin (Hb) 8.8 g/dL (14.0-18.0); O2 Tension (PaO2), arterial 90.9 mmHg (80.0-100.0); Potassium - ABG Lab 2.74 mmol/L (3.70-5.30)
[2023-05-04] MEDS ORDERED: Ibuprofen 100 MG/5 ML UDCUP PER TUBE SCH (08:15)
[2023-05-04] MEDS: Pantoprazole 40 MG VIAL IVP SCH (08:29)
[2023-05-04] MEDS: Insulin Glargine 30 UNITS/0.3 ML VIAL SC SCH (08:39)
[2023-05-04] MEDS: Carvedilol 3.125 MG TAB PO SCH ×2 (08:40→22:20)
[2023-05-04] MEDS: Folic Acid 1 MG TAB PO SCH (08:59)
[2023-05-04] MEDS: Aspirin Chewable 81 MG TAB PO SCH (08:59)
[2023-05-04] MEDS: Ketoconazole 2% Cream 15 gm Tube TOP SCH ×2 (08:59→22:19)
[2023-05-04] MEDS: Atorvastatin Calcium 20 MG TAB PO SCH (08:59)
[2023-05-04] MEDS ORDERED: VANCOMYCIN 2 GRAM/500 ML BAG 2 GM in Premix Bag 1 BAG IVPB SCH (09:00)
[2023-05-04 09:38] LABS: Bacteria/HPF None Seen HPF (None Seen); Bilirubin Negative (Negative); Blood, Urine 2+ (Negative); Glucose, Urine (Dipstick) Normal (Negative); Ketone, Urine Trace mg/dL (Negative); Leukocyte Negative Leu/uL (Negative); Nitrite Negative (Negative); Protein, Urine (Dipstick) 50 mg/dL (Neg-Trace); RBC/HPF Greater than 50 HPF (0-3); Specific Gravity, Urine 1.021 (1.002-1.036); Squamous Epithelial None Seen HPF (0-3); Triple Phosphate Crystal 1+ HPF (None Seen); Urobilinogen Normal mg/dL (Less than 2); pH, Urine 8.5 (5.0-9.0)
[2023-05-04] MEDS ORDERED: Lorazepam 2 MG/ML VIAL SLOW IVP SCH (09:45)
[2023-05-04] MEDS: Cefepime 2 GM in Sodium Chloride 0.9% 100 ML IVPB SCH ×2 (09:47→22:18)
[2023-05-04 09:48] LABS: Clarity Cloudy (Clear)
[2023-05-04] MEDS: VANCOMYCIN 2 GRAM/500 ML BAG 2 GM in Premix Bag 1 BAG IVPB SCH ×2 (09:53→22:19)
[2023-05-04 09:58] LABS: Legionella Urinary Ag Negative (Negative); Strep pneumo Urine Ag NEGATIVE (NEGATIVE)
[2023-05-04 10:32] LABS: CO2 Tension 60.1 mmHg (35.0-45.0)
[2023-05-04 10:33] LABS: Puncture Site RRA; pH, Arterial 7.671 (7.35-7.45)
[2023-05-04] MEDS: Dextrose 5% in Water 1,000 ML IV SCH (12:07)
[2023-05-04] MEDS ORDERED: CEFAZOLIN 2 GM in Sodium Chloride 0.9% 100 ML IVPB SCH (19:30)
[2023-05-04] MEDS ORDERED: Vancomycin 1 GM in Premix Bag 1 BAG IVPB SCH (21:00)
[2023-05-05 04:14] LABS: #Monocytes 0.2 thou/uL (0.11-0.59); #Neutrophils 3.8 thou/uL (1.40-6.50); %Lymphocytes 11.3 % (21.0-51.0); %Monocytes 3.8 % (0.0-10.0); %Neutrophils 83.8 % (42.0-75.0); Hemoglobin 7.4 g/dL (14.0-18.0); Mean Corpuscular HGB CONC 32.2 g/dL (32.0-36.0); Mean Corpuscular Volume 96.2 fl (78.0-98.0); Mean Platelet Volume 9.5 fL (7.4-10.4); Red Blood Cell (RBC) Count 2.39 mill/uL (4.70-6.10); White Blood Cell (WBC) Count 4.5 10x3/uL (4.8-10.8)
[2023-05-05 04:21] LABS: Platelet Count 78 10x3/uL (130-400)
[2023-05-05 04:42] LABS: ALT (SGPT) 32 U/L (8-55); AST (SGOT) 16 U/L (5-34); Albumin 2.5 g/dL (3.5-5.0); Alkaline Phosphatase 77 U/L (40-110); Anion Gap 10 mmol/L (10-20); BUN (Urea Nitrogen) 24 mg/dL (8.4-25.7); Bilirubin, Total 0.4 mg/dL (0.2-1.2); Calc. Creatinine Clearance 174 mL/min (70-130); Calcium 7.2 mg/dL (7.8-10.44); Carbon Dioxide 30 mmol/L (22-29); Chloride 98 mmol/L (98-107); Estimated GFR 111; Globulin 2.1 g/dL (2.4-3.5); Glucose 212 mg/dL (70-105); Potassium 3.5 mmol/L (3.5-5.1); Protein, Total 4.6 g/dL (6.0-8.3); Sodium 134 mmol/L (136-145)
[2023-05-05] MEDS: Ipratropium/Albuterol 3 ML NEB NEB SCH ×3 (06:53→22:12)
[2023-05-05] MEDS: Mometasone 200 MCG/Formoterol 5 MCG 120 PUFF INHALER INH SCH ×2 (06:55→19:30)
[2023-05-05 07:18] LABS: Actual Bicarbonate (HCO3a) 29.6 mEq/L (22-28); Base Excess (BEa) 4.9 mEq/L (-2.0 to +3.0); CO2 Tension 44.6 mmHg (35.0-45.0); Calcium, Ionized (arterial) 0.99 mmol/L (1.12-1.30); Carboxyhemoglobin (COHb) 0.8 gm% (0.0-3.0); Hematocrit-ABG 29 % (42.0-52.0); Hemoglobin (Hb) 9.7 g/dL (14.0-18.0); O2 Tension (PaO2), arterial 79.6 mmHg (80.0-100.0); Potassium - ABG Lab 3.43 mmol/L (3.70-5.30)
[2023-05-05 07:19] LABS: Puncture Site RRA
[2023-05-05] MEDS: Cefepime 2 GM in Sodium Chloride 0.9% 100 ML IVPB SCH ×2 (08:20→20:34)
[2023-05-05] MEDS: Potassium Chloride 20 MEQ in Premix Bag 1 BAG IVPB SCH ×2 (08:20→10:03)
[2023-05-05] MEDS: Insulin Glargine 30 UNITS/0.3 ML VIAL SC SCH (08:21)
[2023-05-05] MEDS: Ketoconazole 2% Cream 15 gm Tube TOP SCH ×2 (08:21→20:34)
[2023-05-05] MEDS: Pantoprazole 40 MG VIAL IVP SCH (08:22)
[2023-05-05] MEDS: methylPREDNISolone Sod Succ 40 MG VIAL IVP SCH ×2 (08:22→20:34)
[2023-05-05] MEDS ORDERED: Calcium Chloride 1 GM/10 ML Abboject SYRINGE IVP SCH (09:00)
[2023-05-05] MEDS: Morphine 2 MG/ML VIAL SLOW IVP PRN ×2 (09:02→12:38)
[2023-05-05] MEDS: Folic Acid 1 MG TAB PO SCH (09:08)
[2023-05-05] MEDS: Carvedilol 3.125 MG TAB PO SCH ×3 (09:08→20:33)
[2023-05-05] MEDS: Atorvastatin Calcium 20 MG TAB PO SCH (09:08)
[2023-05-05] MEDS: Aspirin Chewable 81 MG TAB PO SCH (09:08)
[2023-05-05] MEDS ORDERED: Calcium Chloride 13.6 MEQ in Sodium Chloride 0.9% 100 ML IVPB SCH (09:15)
[2023-05-05] MEDS: VANCOMYCIN 2 GRAM/500 ML BAG 2 GM in Premix Bag 1 BAG IVPB SCH ×2 (09:59→22:52)
[2023-05-05] MEDS: HumaLOG 300 UNITS/3 ML VIAL SC PRN ×2 (12:39→21:32)
[2023-05-05] MEDS: Dextrose 5% in Water 1,000 ML IV SCH (13:02)
[2023-05-05] MEDS: diphenhydrAMINE 50 MG/ML VIAL IVP PRN (20:35)
[2023-05-05 21:50] LABS: Vancomycin, Trough 27.3 ug/mL
[2023-05-06] MEDS: HumaLOG 300 UNITS/3 ML VIAL SC PRN ×5 (00:08→21:00)
[2023-05-06] MEDS: diphenhydrAMINE 50 MG/ML VIAL IVP PRN (02:26)
[2023-05-06 04:03] LABS: #Monocytes 0.3 thou/uL (0.11-0.59); #Neutrophils 4.7 thou/uL (1.40-6.50); %Lymphocytes 11.5 % (21.0-51.0); %Neutrophils 81.8 % (42.0-75.0); Hemoglobin 7.4 g/dL (14.0-18.0); Mean Corpuscular HGB CONC 31.8 g/dL (32.0-36.0); Mean Corpuscular Hemoglobin 30.1 pg (27.0-31.0); Mean Corpuscular Volume 94.7 fl (78.0-98.0); Mean Platelet Volume 9.5 fL (7.4-10.4); RBC Distribution Width 15.8 % (11.5-14.5); Red Blood Cell (RBC) Count 2.46 mill/uL (4.70-6.10); White Blood Cell (WBC) Count 5.8 10x3/uL (4.8-10.8)
[2023-05-06 04:22] LABS: ALT (SGPT) 26 U/L (8-55); AST (SGOT) 12 U/L (5-34); Albumin 2.5 g/dL (3.5-5.0); Alkaline Phosphatase 79 U/L (40-110); Anion Gap 9 mmol/L (10-20); BUN (Urea Nitrogen) 19 mg/dL (8.4-25.7); Bilirubin, Total 0.3 mg/dL (0.2-1.2); Calc. Creatinine Clearance 182 mL/min (70-130); Calcium 7.6 mg/dL (7.8-10.44); Carbon Dioxide 31 mmol/L (22-29); Chloride 96 mmol/L (98-107); Estimated GFR 114; Globulin 2.2 g/dL (2.4-3.5); Glucose 186 mg/dL (70-105); Potassium 3.9 mmol/L (3.5-5.1); Protein, Total 4.7 g/dL (6.0-8.3); Sodium 132 mmol/L (136-145)
[2023-05-06 04:59] LABS: Platelet Count 95 10x3/uL (130-400)
[2023-05-06] MEDS: Ipratropium/Albuterol 3 ML NEB NEB SCH ×3 (07:46→19:58)
[2023-05-06] MEDS: Mometasone 200 MCG/Formoterol 5 MCG 120 PUFF INHALER INH SCH ×2 (07:46→19:58)
[2023-05-06] MEDS ORDERED: methylPREDNISolone Sod Succ 40 MG VIAL IVP SCH (08:40)
[2023-05-06] MEDS: Cefepime 2 GM in Sodium Chloride 0.9% 100 ML IVPB SCH ×2 (08:45→21:22)
[2023-05-06] MEDS: methylPREDNISolone Sod Succ 40 MG VIAL IVP SCH ×2 (08:46→21:22)
[2023-05-06] MEDS: Aspirin Chewable 81 MG TAB PO SCH (08:46)
[2023-05-06] MEDS: Atorvastatin Calcium 20 MG TAB PO SCH (08:46)
[2023-05-06] MEDS: Insulin Glargine 30 UNITS/0.3 ML VIAL SC SCH (08:46)
[2023-05-06] MEDS: Pantoprazole 40 MG VIAL IVP SCH (08:47)
[2023-05-06] MEDS: Folic Acid 1 MG TAB PO SCH (08:47)
[2023-05-06] MEDS: Ketoconazole 2% Cream 15 gm Tube TOP SCH ×2 (08:48→20:42)
[2023-05-06] MEDS: Nystatin Powder 15 GM BOT TOP PRN (08:53)
[2023-05-06] MEDS: Carvedilol 3.125 MG TAB PO SCH ×2 (09:04→22:09)
[2023-05-06] MEDS ORDERED: Vancomycin 1 GM in Premix Bag 1 BAG IVPB SCH (10:00)
[2023-05-06] MEDS: Dextrose 5% in Water 1,000 ML IV SCH (13:17)
[2023-05-06] MEDS: Melatonin 3 MG TAB PO PRN (22:17)
[2023-05-07] MEDS: HumaLOG 300 UNITS/3 ML VIAL SC PRN ×5 (00:22→21:05)
[2023-05-07] MEDS: HYDROcodone/Acetaminophen 7.5/325 mg Tablet PO PRN ×3 (01:11→16:43)
[2023-05-07 04:43] LABS: #Monocytes 0.3 thou/uL (0.11-0.59); %Lymphocytes 6.3 % (21.0-51.0); %Monocytes 4.7 % (0.0-10.0); %Neutrophils 87.3 % (42.0-75.0); Hemoglobin 7.2 g/dL (14.0-18.0); Mean Corpuscular HGB CONC 31.2 g/dL (32.0-36.0); Mean Corpuscular Hemoglobin 29.4 pg (27.0-31.0); Mean Corpuscular Volume 94.3 fl (78.0-98.0); Mean Platelet Volume 9.6 fL (7.4-10.4); Platelet Count 123 10x3/uL (130-400); RBC Distribution Width 15.8 % (11.5-14.5); Red Blood Cell (RBC) Count 2.45 mill/uL (4.70-6.10); White Blood Cell (WBC) Count 6.9 10x3/uL (4.8-10.8)
[2023-05-07 05:08] LABS: ALT (SGPT) 33 U/L (8-55); AST (SGOT) 13 U/L (5-34); Albumin 2.6 g/dL (3.5-5.0); Alkaline Phosphatase 107 U/L (40-110); Anion Gap 9 mmol/L (10-20); BUN (Urea Nitrogen) 22 mg/dL (8.4-25.7); Bilirubin, Total 0.2 mg/dL (0.2-1.2); Calc. Creatinine Clearance 197 mL/min (70-130); Calcium 7.7 mg/dL (7.8-10.44); Carbon Dioxide 35 mmol/L (22-29); Chloride 99 mmol/L (98-107); Estimated GFR 116; Globulin 2.3 g/dL (2.4-3.5); Glucose 221 mg/dL (70-105); Potassium 3.7 mmol/L (3.5-5.1); Protein, Total 4.9 g/dL (6.0-8.3); Sodium 139 mmol/L (136-145)
[2023-05-07] MEDS: Ipratropium/Albuterol 3 ML NEB NEB SCH ×3 (07:41→21:21)
[2023-05-07] MEDS: Mometasone 200 MCG/Formoterol 5 MCG 120 PUFF INHALER INH SCH ×2 (07:41→21:24)
[2023-05-07] MEDS: Cefepime 2 GM in Sodium Chloride 0.9% 100 ML IVPB SCH ×2 (09:13→20:32)
[2023-05-07] MEDS: Pantoprazole 40 MG VIAL IVP SCH (09:13)
[2023-05-07] MEDS: methylPREDNISolone Sod Succ 40 MG VIAL IVP SCH ×2 (09:13→20:33)
[2023-05-07] MEDS: Insulin Glargine 30 UNITS/0.3 ML VIAL SC SCH (09:13)
[2023-05-07] MEDS: Aspirin Chewable 81 MG TAB PO SCH (09:14)
[2023-05-07] MEDS: Ketoconazole 2% Cream 15 gm Tube TOP SCH ×2 (09:14→20:33)
[2023-05-07] MEDS: Carvedilol 3.125 MG TAB PO SCH ×2 (09:14→20:35)
[2023-05-07] MEDS: Atorvastatin Calcium 20 MG TAB PO SCH (09:14)
[2023-05-07] MEDS: Folic Acid 1 MG TAB PO SCH (09:14)
[2023-05-07] MEDS: ALPRAZolam 0.25 MG TAB PER TUBE SCH ×3 (09:23→20:32)
[2023-05-07] MEDS: Dextrose 5% in Water 1,000 ML IV SCH (11:51)
[2023-05-07] MEDS: Acetaminophen 325 MG TAB PO PRN (16:42)
[2023-05-07] MEDS: Nystatin Powder 15 GM BOT TOP PRN (20:34)
[2023-05-08] MEDS: HumaLOG 300 UNITS/3 ML VIAL SC PRN ×5 (00:06→20:29)
[2023-05-08 04:33] LABS: #Monocytes 0.2 thou/uL (0.11-0.59); #Neutrophils 4.5 thou/uL (1.40-6.50); %Basophils 0.2 % (0.0-1.0); %Lymphocytes 7.2 % (21.0-51.0); %Monocytes 3.9 % (0.0-10.0); %Neutrophils 87.1 % (42.0-75.0); Hemoglobin 7.4 g/dL (14.0-18.0); Mean Corpuscular Hemoglobin 30.1 pg (27.0-31.0); Mean Platelet Volume 10.8 fL (7.4-10.4); RBC Distribution Width 16.8 % (11.5-14.5); Red Blood Cell (RBC) Count 2.46 mill/uL (4.70-6.10); White Blood Cell (WBC) Count 5.1 10x3/uL (4.8-10.8)
[2023-05-08 04:38] LABS: Mean Corpuscular Volume 97.2 fl (78.0-98.0); Platelet Count 123 10x3/uL (130-400)
[2023-05-08 05:02] LABS: ALT (SGPT) 41 U/L (8-55); AST (SGOT) 21 U/L (5-34); Albumin 2.6 g/dL (3.5-5.0); Alkaline Phosphatase 124 U/L (40-110); Anion Gap 7 mmol/L (10-20); BUN (Urea Nitrogen) 22 mg/dL (8.4-25.7); Bilirubin, Total 0.3 mg/dL (0.2-1.2); Calc. Creatinine Clearance 207 mL/min (70-130); Calcium 7.8 mg/dL (7.8-10.44); Carbon Dioxide 36 mmol/L (22-29); Chloride 98 mmol/L (98-107); Estimated GFR 118; Globulin 2.4 g/dL (2.4-3.5); Glucose 230 mg/dL (70-105); Potassium 3.8 mmol/L (3.5-5.1); Sodium 137 mmol/L (136-145)
[2023-05-08] MEDS: Mometasone 200 MCG/Formoterol 5 MCG 120 PUFF INHALER INH SCH ×2 (07:08→21:41)
[2023-05-08] MEDS: Ipratropium/Albuterol 3 ML NEB NEB SCH ×3 (07:08→21:39)
[2023-05-08] MEDS: methylPREDNISolone Sod Succ 40 MG VIAL IVP SCH ×2 (09:59→20:21)
[2023-05-08] MEDS: Cefepime 2 GM in Sodium Chloride 0.9% 100 ML IVPB SCH ×2 (09:59→20:20)
[2023-05-08] MEDS: Folic Acid 1 MG TAB PO SCH (10:00)
[2023-05-08] MEDS: Carvedilol 3.125 MG TAB PO SCH ×2 (10:00→20:59)
[2023-05-08] MEDS: Ketoconazole 2% Cream 15 gm Tube TOP SCH ×2 (10:00→20:21)
[2023-05-08] MEDS: Pantoprazole 40 MG VIAL IVP SCH (10:00)
[2023-05-08] MEDS: Insulin Glargine 30 UNITS/0.3 ML VIAL SC SCH (10:00)
[2023-05-08] MEDS: ALPRAZolam 0.25 MG TAB PER TUBE SCH ×3 (10:00→20:20)
[2023-05-08] MEDS: Aspirin Chewable 81 MG TAB PO SCH (10:00)
[2023-05-08] MEDS: Atorvastatin Calcium 20 MG TAB PO SCH (10:00)
[2023-05-08] MEDS: Acetaminophen 325 MG TAB PO PRN (13:27)
[2023-05-08] MEDS: HYDROcodone/Acetaminophen 7.5/325 mg Tablet PO PRN (13:28)
[2023-05-08] MEDS: Nystatin Powder 15 GM BOT TOP PRN (20:21)
[2023-05-09] MEDS: HumaLOG 300 UNITS/3 ML VIAL SC PRN ×4 (00:03→18:02)
[2023-05-09 04:49] LABS: #Monocytes 0.2 thou/uL (0.11-0.59); #Neutrophils 4.2 thou/uL (1.40-6.50); %Monocytes 4.2 % (0.0-10.0); %Neutrophils 84.6 % (42.0-75.0); Hemoglobin 7.5 g/dL (14.0-18.0); Mean Corpuscular HGB CONC 30.7 g/dL (32.0-36.0); Mean Corpuscular Hemoglobin 29.4 pg (27.0-31.0); Mean Corpuscular Volume 95.7 fl (78.0-98.0); Mean Platelet Volume 9.6 fL (7.4-10.4); RBC Distribution Width 17.3 % (11.5-14.5); Red Blood Cell (RBC) Count 2.55 mill/uL (4.70-6.10)
[2023-05-09 05:02] LABS: Platelet Count 117 10x3/uL (130-400)
[2023-05-09 05:16] LABS: ALT (SGPT) 47 U/L (8-55); AST (SGOT) 21 U/L (5-34); Albumin 2.6 g/dL (3.5-5.0); Alkaline Phosphatase 138 U/L (40-110); Anion Gap 11 mmol/L (10-20); BUN (Urea Nitrogen) 26 mg/dL (8.4-25.7); Bilirubin, Total 0.4 mg/dL (0.2-1.2); Calc. Creatinine Clearance 218 mL/min (70-130); Calcium 7.6 mg/dL (7.8-10.44); Carbon Dioxide 34 mmol/L (22-29); Chloride 95 mmol/L (98-107); Estimated GFR 121; Globulin 2.3 g/dL (2.4-3.5); Glucose 209 mg/dL (70-105); Potassium 3.7 mmol/L (3.5-5.1); Protein, Total 4.9 g/dL (6.0-8.3); Sodium 136 mmol/L (136-145)
[2023-05-09] MEDS: Mometasone 200 MCG/Formoterol 5 MCG 120 PUFF INHALER INH SCH ×2 (07:06→21:43)
[2023-05-09] MEDS: Ipratropium/Albuterol 3 ML NEB NEB SCH ×3 (07:06→21:36)
[2023-05-09] MEDS: Ketoconazole 2% Cream 15 gm Tube TOP SCH ×2 (09:07→20:41)
[2023-05-09] MEDS: Insulin Glargine 30 UNITS/0.3 ML VIAL SC SCH (09:08)
[2023-05-09] MEDS: methylPREDNISolone Sod Succ 40 MG VIAL IVP SCH ×2 (09:08→20:40)
[2023-05-09] MEDS: Atorvastatin Calcium 20 MG TAB PO SCH (09:09)
[2023-05-09] MEDS: Carvedilol 3.125 MG TAB PO SCH ×2 (09:09→20:39)
[2023-05-09] MEDS: Folic Acid 1 MG TAB PO SCH (09:09)
[2023-05-09] MEDS: ALPRAZolam 0.25 MG TAB PER TUBE SCH ×2 (09:09→10:24)
[2023-05-09] MEDS: Aspirin Chewable 81 MG TAB PO SCH (09:09)
[2023-05-09] MEDS: Pantoprazole 40 MG VIAL IVP SCH (09:09)
[2023-05-09] MEDS: Cefepime 2 GM in Sodium Chloride 0.9% 100 ML IVPB SCH ×2 (09:13→20:39)
[2023-05-10] MEDS: HumaLOG 300 UNITS/3 ML VIAL SC PRN ×4 (00:10→20:54)
[2023-05-10 04:47] LABS: ALT (SGPT) 55 U/L (8-55); AST (SGOT) 21 U/L (5-34); Albumin 2.6 g/dL (3.5-5.0); Alkaline Phosphatase 150 U/L (40-110); Anion Gap 10 mmol/L (10-20); BUN (Urea Nitrogen) 24 mg/dL (8.4-25.7); Bilirubin, Total 0.3 mg/dL (0.2-1.2); Calc. Creatinine Clearance 227 mL/min (70-130); Calcium 7.7 mg/dL (7.8-10.44); Carbon Dioxide 35 mmol/L (22-29); Chloride 93 mmol/L (98-107); Estimated GFR 123; Globulin 2.4 g/dL (2.4-3.5); Glucose 177 mg/dL (70-105); Potassium 3.9 mmol/L (3.5-5.1); Sodium 134 mmol/L (136-145)
[2023-05-10] MEDS: Ipratropium/Albuterol 3 ML NEB NEB SCH ×3 (07:32→22:41)
[2023-05-10] MEDS: Mometasone 200 MCG/Formoterol 5 MCG 120 PUFF INHALER INH SCH ×2 (07:33→18:44)
[2023-05-10] MEDS: Carvedilol 3.125 MG TAB PO SCH ×2 (09:57→20:52)
[2023-05-10] MEDS: Cefepime 2 GM in Sodium Chloride 0.9% 100 ML IVPB SCH ×2 (09:57→20:52)
[2023-05-10] MEDS: Folic Acid 1 MG TAB PO SCH (09:58)
[2023-05-10] MEDS: Pantoprazole 40 MG VIAL IVP SCH (09:58)
[2023-05-10] MEDS: Aspirin Chewable 81 MG TAB PO SCH (09:58)
[2023-05-10] MEDS: Insulin Glargine 30 UNITS/0.3 ML VIAL SC SCH (09:58)
[2023-05-10] MEDS: Atorvastatin Calcium 20 MG TAB PO SCH (09:58)
[2023-05-10] MEDS: Ketoconazole 2% Cream 15 gm Tube TOP SCH ×2 (09:59→20:53)
[2023-05-10] MEDS: methylPREDNISolone Sod Succ 40 MG VIAL IVP SCH ×2 (10:01→20:53)
[2023-05-10] MEDS: Melatonin 3 MG TAB PO PRN (20:52)
[2023-05-11] MEDS: HumaLOG 300 UNITS/3 ML VIAL SC PRN ×6 (00:04→21:25)
[2023-05-11 05:23] LABS: Albumin 2.6 g/dL (3.5-5.0); Alkaline Phosphatase 151 U/L (40-110); BUN (Urea Nitrogen) 32 mg/dL (8.4-25.7); Bilirubin, Total 0.3 mg/dL (0.2-1.2); Calc. Creatinine Clearance 181 mL/min (70-130); Calcium 8.1 mg/dL (7.8-10.44); Estimated GFR 115; Globulin 2.4 g/dL (2.4-3.5); Glucose 235 mg/dL (70-105)
[2023-05-11 05:34] LABS: ALT (SGPT) 52 U/L (8-55); AST (SGOT) 15 U/L (5-34); Anion Gap 18 mmol/L (10-20); Carbon Dioxide 32 mmol/L (22-29); Chloride 98 mmol/L (98-107); Potassium 3.8 mmol/L (3.5-5.1); Sodium 144 mmol/L (136-145)
[2023-05-11] MEDS: Mometasone 200 MCG/Formoterol 5 MCG 120 PUFF INHALER INH SCH ×2 (06:22→19:01)
[2023-05-11] MEDS: Ipratropium/Albuterol 3 ML NEB NEB SCH ×3 (06:30→21:56)
[2023-05-11] MEDS: Atorvastatin Calcium 20 MG TAB PO SCH (08:21)
[2023-05-11] MEDS: Carvedilol 3.125 MG TAB PO SCH ×2 (08:21→21:23)
[2023-05-11] MEDS: Cefepime 2 GM in Sodium Chloride 0.9% 100 ML IVPB SCH (08:21)
[2023-05-11] MEDS: Aspirin Chewable 81 MG TAB PO SCH (08:21)
[2023-05-11] MEDS: Folic Acid 1 MG TAB PO SCH (08:22)
[2023-05-11] MEDS: Insulin Glargine 30 UNITS/0.3 ML VIAL SC SCH (08:22)
[2023-05-11] MEDS: methylPREDNISolone Sod Succ 40 MG VIAL IVP SCH ×2 (08:22→21:24)
[2023-05-11] MEDS: Pantoprazole 40 MG VIAL IVP SCH (08:23)
[2023-05-11] MEDS: Ketoconazole 2% Cream 15 gm Tube TOP SCH ×2 (08:23→21:24)
[2023-05-12] MEDS: HumaLOG 300 UNITS/3 ML VIAL SC PRN ×4 (03:51→19:56)
[2023-05-12 04:27] LABS: #Monocytes 0.1 thou/uL (0.11-0.59); #Neutrophils 3.4 thou/uL (1.40-6.50); %Lymphocytes 12.3 % (21.0-51.0); %Monocytes 2.5 % (0.0-10.0); %Neutrophils 84.2 % (42.0-75.0); Hemoglobin 7.4 g/dL (14.0-18.0); Mean Corpuscular HGB CONC 30.3 g/dL (32.0-36.0); Mean Corpuscular Hemoglobin 30.6 pg (27.0-31.0); Mean Corpuscular Volume 100.8 fl (78.0-98.0); Platelet Count 101 10x3/uL (130-400); Red Blood Cell (RBC) Count 2.42 mill/uL (4.70-6.10); White Blood Cell (WBC) Count 4.1 10x3/uL (4.8-10.8)
[2023-05-12 05:33] LABS: ALT (SGPT) 41 U/L (8-55); AST (SGOT) 11 U/L (5-34); Alkaline Phosphatase 136 U/L (40-110); BUN (Urea Nitrogen) 27 mg/dL (8.4-25.7); Bilirubin, Total 0.3 mg/dL (0.2-1.2); Calc. Creatinine Clearance 198 mL/min (70-130); Calcium 8.2 mg/dL (7.8-10.44); Estimated GFR 119; Globulin 2.4 g/dL (2.4-3.5); Glucose 261 mg/dL (70-105)
[2023-05-12] MEDS: Mometasone 200 MCG/Formoterol 5 MCG 120 PUFF INHALER INH SCH ×2 (06:28→19:29)
[2023-05-12] MEDS: Ipratropium/Albuterol 3 ML NEB NEB SCH ×3 (06:28→22:18)
[2023-05-12 06:29] LABS: Carbon Dioxide 31 mmol/L (22-29)
[2023-05-12 06:31] LABS: Albumin 2.6 g/dL (3.5-5.0); Chloride 96 mmol/L (98-107); Potassium 3.8 mmol/L (3.5-5.1); Sodium 139 mmol/L (136-145)
[2023-05-12 06:36] LABS: Anion Gap 16 mmol/L (10-20)
[2023-05-12] MEDS: Acetaminophen 325 MG TAB PO PRN (10:26)
[2023-05-12] MEDS: Atorvastatin Calcium 20 MG TAB PO SCH (10:27)
[2023-05-12] MEDS: Aspirin Chewable 81 MG TAB PO SCH (10:27)
[2023-05-12] MEDS: ALPRAZolam 0.25 MG TAB PER TUBE PRN (10:27)
[2023-05-12] MEDS: Carvedilol 3.125 MG TAB PO SCH ×2 (10:27→21:10)
[2023-05-12] MEDS: Folic Acid 1 MG TAB PO SCH (10:27)
[2023-05-12] MEDS: methylPREDNISolone Sod Succ 40 MG VIAL IVP SCH (10:28)
[2023-05-12] MEDS: Pantoprazole 40 MG VIAL IVP SCH (10:28)
[2023-05-12] MEDS: Insulin Glargine 30 UNITS/0.3 ML VIAL SC SCH (10:28)
[2023-05-12] MEDS: Ketoconazole 2% Cream 15 gm Tube TOP SCH ×2 (10:29→21:13)
[2023-05-13] MEDS: HumaLOG 300 UNITS/3 ML VIAL SC PRN ×3 (00:16→17:55)
[2023-05-13 04:39] LABS: #Monocytes 0.1 thou/uL (0.11-0.59); %Eosinophils 0.3 % (0.0-10.0); %Lymphocytes 19.2 % (21.0-51.0); %Neutrophils 76.7 % (42.0-75.0); Hemoglobin 8.3 g/dL (14.0-18.0); Mean Corpuscular HGB CONC 29.6 g/dL (32.0-36.0); Mean Corpuscular Hemoglobin 30.7 pg (27.0-31.0); Mean Corpuscular Volume 103.7 fl (78.0-98.0); Mean Platelet Volume 10.9 fL (7.4-10.4); RBC Distribution Width 18.4 % (11.5-14.5)
[2023-05-13 04:42] LABS: Platelet Count 98 10x3/uL (130-400)
[2023-05-13 05:00] LABS: ALT (SGPT) 39 U/L (8-55); AST (SGOT) 9 U/L (5-34); Alkaline Phosphatase 146 U/L (40-110); BUN (Urea Nitrogen) 28 mg/dL (8.4-25.7); Bilirubin, Total 0.3 mg/dL (0.2-1.2); Calc. Creatinine Clearance 176 mL/min (70-130); Calcium 8.7 mg/dL (7.8-10.44); Estimated GFR 115; Globulin 2.6 g/dL (2.4-3.5); Glucose 203 mg/dL (70-105); Protein, Total 5.6 g/dL (6.0-8.3)
[2023-05-13 05:09] LABS: Anion Gap 16 mmol/L (10-20); Carbon Dioxide 36 mmol/L (22-29); Chloride 103 mmol/L (98-107); Potassium 3.3 mmol/L (3.5-5.1)
[2023-05-13 05:17] LABS: Sodium 152 mmol/L (136-145)
[2023-05-13] MEDS: Mometasone 200 MCG/Formoterol 5 MCG 120 PUFF INHALER INH SCH ×3 (07:43→19:40)
[2023-05-13] MEDS: Ipratropium/Albuterol 3 ML NEB NEB SCH ×3 (07:46→22:11)
[2023-05-13] MEDS: Potassium Chloride 20 MEQ in Premix Bag 1 BAG IVPB SCH ×2 (09:54→09:57)
[2023-05-13] MEDS: Pantoprazole 40 MG VIAL IVP SCH (09:57)
[2023-05-13] MEDS: ALPRAZolam 0.25 MG TAB PER TUBE PRN (09:57)
[2023-05-13] MEDS: Aspirin Chewable 81 MG TAB PO SCH (09:57)
[2023-05-13] MEDS: methylPREDNISolone Sod Succ 40 MG VIAL IVP SCH (09:58)
[2023-05-13] MEDS: Carvedilol 3.125 MG TAB PO SCH ×2 (09:58→21:15)
[2023-05-13] MEDS: HYDROcodone/Acetaminophen 7.5/325 mg Tablet PO PRN (09:58)
[2023-05-13] MEDS: Folic Acid 1 MG TAB PO SCH (09:58)
[2023-05-13] MEDS: Atorvastatin Calcium 20 MG TAB PO SCH (09:58)
[2023-05-13] MEDS: Ketoconazole 2% Cream 15 gm Tube TOP SCH ×2 (09:59→21:16)
[2023-05-13] MEDS: Nystatin Powder 15 GM BOT TOP PRN (09:59)
[2023-05-13] MEDS: Insulin Glargine 30 UNITS/0.3 ML VIAL SC SCH (09:59)
[2023-05-13] MEDS ORDERED: Sertraline 25 MG TAB PO SCH (12:00)
[2023-05-14 04:02] LABS: #Monocytes 0.1 thou/uL (0.11-0.59); #Neutrophils 3.7 thou/uL (1.40-6.50); %Eosinophils 0.6 % (0.0-10.0); %Lymphocytes 18.9 % (21.0-51.0); %Monocytes 2.7 % (0.0-10.0); %Neutrophils 77.4 % (42.0-75.0); Hemoglobin 8.6 g/dL (14.0-18.0); Mean Corpuscular HGB CONC 28.7 g/dL (32.0-36.0); Mean Corpuscular Hemoglobin 29.7 pg (27.0-31.0); Mean Corpuscular Volume 103.4 fl (78.0-98.0); Mean Platelet Volume 8.8 fL (7.4-10.4); RBC Distribution Width 18.3 % (11.5-14.5); White Blood Cell (WBC) Count 4.8 10x3/uL (4.8-10.8)
[2023-05-14 04:14] LABS: Platelet Count 66 10x3/uL (130-400)
[2023-05-14 04:37] LABS: ALT (SGPT) 40 U/L (8-55); AST (SGOT) 17 U/L (5-34); Albumin 3.1 g/dL (3.5-5.0); Alkaline Phosphatase 161 U/L (40-110); BUN (Urea Nitrogen) 29 mg/dL (8.4-25.7); Bilirubin, Total 0.4 mg/dL (0.2-1.2); Calc. Creatinine Clearance 182 mL/min (70-130); Calcium 8.7 mg/dL (7.8-10.44); Estimated GFR 117; Globulin 2.9 g/dL (2.4-3.5); Glucose 166 mg/dL (70-105)
[2023-05-14 04:42] LABS: Anisocytosis SLIGHT = 6-15 cells HPF (0-5); CellaVision Operator ID lab.abc; Hypochromia SLIGHT = 6-15 cells HPF (0-5); Macrocytosis SLIGHT = 6-15 cells HPF (0-5); Platelet Adequacy Comment Platelets Decreased; Polychromasia SLIGHT = 2-3 cells HPF (0-2); Smudge Cells 7.9 %; Tear Drops SLIGHT = 2-5 cells HPF (0-1)
[2023-05-14 04:46] LABS: Anion Gap 19 mmol/L (10-20); Carbon Dioxide 33 mmol/L (22-29); Chloride 102 mmol/L (98-107); Potassium 3.7 mmol/L (3.5-5.1); Sodium 150 mmol/L (136-145)
[2023-05-14] MEDS: Ipratropium/Albuterol 3 ML NEB NEB SCH ×3 (06:48→22:20)
[2023-05-14] MEDS: Mometasone 200 MCG/Formoterol 5 MCG 120 PUFF INHALER INH SCH ×2 (06:51→19:41)
[2023-05-14] MEDS ORDERED: Magnesium 2 GM/50 ML(in water) 2 GM in Premix Bag 1 BAG IVPB SCH (08:00)
[2023-05-14] MEDS: methylPREDNISolone Sod Succ 40 MG VIAL IVP SCH (09:00)
[2023-05-14] MEDS: Pantoprazole 40 MG VIAL IVP SCH (09:01)
[2023-05-14] MEDS: Carvedilol 3.125 MG TAB PO SCH ×2 (09:02→20:36)
[2023-05-14] MEDS: Aspirin Chewable 81 MG TAB PO SCH (09:02)
[2023-05-14] MEDS: Folic Acid 1 MG TAB PO SCH (09:02)
[2023-05-14] MEDS: Sertraline 25 MG TAB PO SCH (09:02)
[2023-05-14] MEDS: Insulin Glargine 30 UNITS/0.3 ML VIAL SC SCH (09:02)
[2023-05-14] MEDS: Atorvastatin Calcium 20 MG TAB PO SCH (09:02)
[2023-05-14] MEDS: Ketoconazole 2% Cream 15 gm Tube TOP SCH ×2 (09:03→20:39)
[2023-05-14] MEDS: HumaLOG 300 UNITS/3 ML VIAL SC PRN (17:28)
[2023-05-15 04:01] LABS: #Monocytes 0.2 thou/uL (0.11-0.59); #Neutrophils 3.1 thou/uL (1.40-6.50); %Eosinophils 0.7 % (0.0-10.0); %Lymphocytes 27.4 % (21.0-51.0); %Monocytes 3.5 % (0.0-10.0); %Neutrophils 68.2 % (42.0-75.0); Mean Corpuscular HGB CONC 28.9 g/dL (32.0-36.0); Mean Corpuscular Hemoglobin 29.5 pg (27.0-31.0); Mean Platelet Volume 8.3 fL (7.4-10.4); RBC Distribution Width 17.9 % (11.5-14.5); Red Blood Cell (RBC) Count 3.05 mill/uL (4.70-6.10); White Blood Cell (WBC) Count 4.6 10x3/uL (4.8-10.8)
[2023-05-15 04:25] LABS: ALT (SGPT) 33 U/L (8-55); AST (SGOT) 9 U/L (5-34); Albumin 3.1 g/dL (3.5-5.0); Alkaline Phosphatase 157 U/L (40-110); Anion Gap 16 mmol/L (10-20); BUN (Urea Nitrogen) 30 mg/dL (8.4-25.7); Bilirubin, Total 0.4 mg/dL (0.2-1.2); Calc. Creatinine Clearance 171 mL/min (70-130); Calcium 8.9 mg/dL (7.8-10.44); Carbon Dioxide 33 mmol/L (22-29); Chloride 106 mmol/L (98-107); Estimated GFR 115; Globulin 3.1 g/dL (2.4-3.5); Glucose 175 mg/dL (70-105); Potassium 3.9 mmol/L (3.5-5.1); Protein, Total 6.2 g/dL (6.0-8.3)
[2023-05-15 04:28] LABS: Sodium 151 mmol/L (136-145)
[2023-05-15 05:35] LABS: Platelet Count 63 10x3/uL (130-400)
[2023-05-15] MEDS: Ipratropium/Albuterol 3 ML NEB NEB SCH ×3 (07:11→21:39)
[2023-05-15] MEDS: Mometasone 200 MCG/Formoterol 5 MCG 120 PUFF INHALER INH SCH ×2 (07:14→21:39)
[2023-05-15] MEDS: Folic Acid 1 MG TAB PO SCH (08:43)
[2023-05-15] MEDS: Insulin Glargine 30 UNITS/0.3 ML VIAL SC SCH (08:43)
[2023-05-15] MEDS: Aspirin Chewable 81 MG TAB PO SCH (08:43)
[2023-05-15] MEDS: Pantoprazole 40 MG VIAL IVP SCH (08:43)
[2023-05-15] MEDS: Atorvastatin Calcium 20 MG TAB PO SCH (08:43)
[2023-05-15] MEDS: Sertraline 25 MG TAB PO SCH (08:43)
[2023-05-15] MEDS: Carvedilol 3.125 MG TAB PO SCH ×2 (08:43→20:49)
[2023-05-15] MEDS: methylPREDNISolone Sod Succ 40 MG VIAL IVP SCH (08:43)
[2023-05-15] MEDS: Ketoconazole 2% Cream 15 gm Tube TOP SCH ×2 (08:45→21:04)
[2023-05-15] MEDS: HumaLOG 300 UNITS/3 ML VIAL SC PRN ×2 (12:23→16:31)
[2023-05-16] MEDS: HumaLOG 300 UNITS/3 ML VIAL SC PRN ×3 (04:10→21:32)
[2023-05-16 04:44] LABS: ALT (SGPT) 28 U/L (8-55); AST (SGOT) 9 U/L (5-34); Alkaline Phosphatase 141 U/L (40-110); Anion Gap 13 mmol/L (10-20); BUN (Urea Nitrogen) 43 mg/dL (8.4-25.7); Bilirubin, Total 0.3 mg/dL (0.2-1.2); Calc. Creatinine Clearance 156 mL/min (70-130); Calcium 8.7 mg/dL (7.8-10.44); Carbon Dioxide 34 mmol/L (22-29); Chloride 102 mmol/L (98-107); Estimated GFR 112; Globulin 3.1 g/dL (2.4-3.5); Glucose 252 mg/dL (70-105); Potassium 4.1 mmol/L (3.5-5.1); Protein, Total 6.1 g/dL (6.0-8.3); Sodium 145 mmol/L (136-145)
[2023-05-16] MEDS: Ipratropium/Albuterol 3 ML NEB NEB SCH ×3 (06:54→22:18)
[2023-05-16] MEDS: Mometasone 200 MCG/Formoterol 5 MCG 120 PUFF INHALER INH SCH ×2 (06:56→22:18)
[2023-05-16] MEDS: Pantoprazole 40 MG VIAL IVP SCH (08:42)
[2023-05-16] MEDS: methylPREDNISolone Sod Succ 40 MG VIAL IVP SCH (08:42)
[2023-05-16] MEDS: Carvedilol 3.125 MG TAB PO SCH ×2 (08:43→20:44)
[2023-05-16] MEDS: Ketoconazole 2% Cream 15 gm Tube TOP SCH ×2 (08:43→21:32)
[2023-05-16] MEDS: Atorvastatin Calcium 20 MG TAB PO SCH (08:43)
[2023-05-16] MEDS: Folic Acid 1 MG TAB PO SCH (08:43)
[2023-05-16] MEDS: Insulin Glargine 30 UNITS/0.3 ML VIAL SC SCH (08:43)
[2023-05-16] MEDS: Aspirin Chewable 81 MG TAB PO SCH (08:43)
[2023-05-16] MEDS: Sertraline 25 MG TAB PO SCH (08:44)
[2023-05-17 04:34] LABS: ALT (SGPT) 24 U/L (8-55); AST (SGOT) 10 U/L (5-34); Alkaline Phosphatase 135 U/L (40-110); Anion Gap 15 mmol/L (10-20); BUN (Urea Nitrogen) 36 mg/dL (8.4-25.7); Bilirubin, Total 0.3 mg/dL (0.2-1.2); Calc. Creatinine Clearance 148 mL/min (70-130); Calcium 8.8 mg/dL (7.8-10.44); Carbon Dioxide 32 mmol/L (22-29); Chloride 103 mmol/L (98-107); Estimated GFR 110; Globulin 3.1 g/dL (2.4-3.5); Glucose 215 mg/dL (70-105); Protein, Total 6.1 g/dL (6.0-8.3); Sodium 146 mmol/L (136-145)
[2023-05-17] MEDS: Ipratropium/Albuterol 3 ML NEB NEB SCH ×3 (07:26→22:42)
[2023-05-17] MEDS: Mometasone 200 MCG/Formoterol 5 MCG 120 PUFF INHALER INH SCH ×2 (07:27→18:53)
[2023-05-17] MEDS: Insulin Glargine 30 UNITS/0.3 ML VIAL SC SCH (08:10)
[2023-05-17] MEDS: HumaLOG 300 UNITS/3 ML VIAL SC PRN ×3 (08:10→16:12)
[2023-05-17] MEDS: Atorvastatin Calcium 20 MG TAB PO SCH (08:11)
[2023-05-17] MEDS: Aspirin Chewable 81 MG TAB PO SCH (08:11)
[2023-05-17] MEDS: Sertraline 25 MG TAB PO SCH (08:11)
[2023-05-17] MEDS: Carvedilol 3.125 MG TAB PO SCH ×2 (08:13→21:14)
[2023-05-17] MEDS: Pantoprazole 40 MG VIAL IVP SCH (08:19)
[2023-05-17] MEDS: methylPREDNISolone Sod Succ 40 MG VIAL IVP SCH (08:19)
[2023-05-17] MEDS ORDERED: traMADol HCl 50 MG TAB PO PRN (11:25)
[2023-05-17] MEDS ORDERED: Lidocaine 4% Patch TD SCH (11:40)
[2023-05-17] MEDS: Ketoconazole 2% Cream 15 gm Tube TOP SCH ×2 (12:23→21:15)
[2023-05-17] MEDS ORDERED: Tamsulosin HCl 0.4 MG CAP PO SCH (15:00)
[2023-05-17] MEDS: Transdermal Patch Removal TOP SCH (21:15)
[2023-05-18 04:21] LABS: #Monocytes 0.2 thou/uL (0.11-0.59); %Eosinophils 0.8 % (0.0-10.0); %Lymphocytes 54.1 % (21.0-51.0); %Monocytes 5.8 % (0.0-10.0); %Neutrophils 38.9 % (42.0-75.0); Hemoglobin 8.6 g/dL (14.0-18.0); Mean Corpuscular HGB CONC 29.4 g/dL (32.0-36.0); Mean Corpuscular Hemoglobin 29.5 pg (27.0-31.0); Mean Corpuscular Volume 100.3 fl (78.0-98.0); Mean Platelet Volume 10.6 fL (7.4-10.4); RBC Distribution Width 16.5 % (11.5-14.5); Red Blood Cell (RBC) Count 2.92 mill/uL (4.70-6.10); White Blood Cell (WBC) Count 2.6 10x3/uL (4.8-10.8)
[2023-05-18 04:45] LABS: ALT (SGPT) 24 U/L (8-55); AST (SGOT) 9 U/L (5-34); Alkaline Phosphatase 133 U/L (40-110); Anion Gap 13 mmol/L (10-20); BUN (Urea Nitrogen) 39 mg/dL (8.4-25.7); Bilirubin, Total 0.4 mg/dL (0.2-1.2); Calc. Creatinine Clearance 174 mL/min (70-130); Calcium 8.7 mg/dL (7.8-10.44); Carbon Dioxide 36 mmol/L (22-29); Chloride 103 mmol/L (98-107); Estimated GFR 116; Globulin 3.2 g/dL (2.4-3.5); Glucose 187 mg/dL (70-105); Potassium 3.7 mmol/L (3.5-5.1); Protein, Total 6.2 g/dL (6.0-8.3); Sodium 148 mmol/L (136-145)
[2023-05-18 04:46] LABS: Platelet Count 61 10x3/uL (130-400)
[2023-05-18] MEDS: HumaLOG 300 UNITS/3 ML VIAL SC PRN ×3 (06:14→20:09)
[2023-05-18] MEDS: Mometasone 200 MCG/Formoterol 5 MCG 120 PUFF INHALER INH SCH ×2 (08:15→18:44)
[2023-05-18] MEDS: Ipratropium/Albuterol 3 ML NEB NEB SCH ×3 (08:18→18:43)
[2023-05-18] MEDS: Lidocaine 4% Patch TD SCH ×2 (10:05→10:23)
[2023-05-18] MEDS: Carvedilol 3.125 MG TAB PO SCH ×2 (10:06→20:07)
[2023-05-18] MEDS: Folic Acid 1 MG TAB PO SCH (10:06)
[2023-05-18] MEDS: Sertraline 25 MG TAB PO SCH (10:06)
[2023-05-18] MEDS: Tamsulosin HCl 0.4 MG CAP PO SCH (10:06)
[2023-05-18] MEDS: Aspirin Chewable 81 MG TAB PO SCH (10:06)
[2023-05-18] MEDS: Atorvastatin Calcium 20 MG TAB PO SCH (10:06)
[2023-05-18] MEDS: Ketoconazole 2% Cream 15 gm Tube TOP SCH ×2 (10:07→20:07)
[2023-05-18] MEDS: Insulin Glargine 30 UNITS/0.3 ML VIAL SC SCH (10:07)
[2023-05-18] MEDS: Nystatin Powder 15 GM BOT TOP PRN (10:08)
[2023-05-18] MEDS: Pantoprazole 40 MG VIAL IVP SCH (10:09)
[2023-05-18] MEDS: methylPREDNISolone Sod Succ 40 MG VIAL IVP SCH (10:10)
[2023-05-19] MEDS: Transdermal Patch Removal TOP SCH ×2 (00:06→21:41)
[2023-05-19] MEDS: HumaLOG 300 UNITS/3 ML VIAL SC PRN ×5 (04:29→20:23)
[2023-05-19 04:39] LABS: ALT (SGPT) 22 U/L (8-55); AST (SGOT) 12 U/L (5-34); Albumin 2.9 g/dL (3.5-5.0); Alkaline Phosphatase 128 U/L (40-110); Anion Gap 12 mmol/L (10-20); BUN (Urea Nitrogen) 32 mg/dL (8.4-25.7); Bilirubin, Total 0.4 mg/dL (0.2-1.2); Calc. Creatinine Clearance 151 mL/min (70-130); Calcium 8.8 mg/dL (7.8-10.44); Carbon Dioxide 34 mmol/L (22-29); Chloride 104 mmol/L (98-107); Estimated GFR 112; Globulin 3.2 g/dL (2.4-3.5); Glucose 191 mg/dL (70-105); Potassium 3.8 mmol/L (3.5-5.1); Protein, Total 6.1 g/dL (6.0-8.3); Sodium 146 mmol/L (136-145)
[2023-05-19] MEDS: Ipratropium/Albuterol 3 ML NEB NEB SCH ×3 (07:28→18:55)
[2023-05-19] MEDS: Mometasone 200 MCG/Formoterol 5 MCG 120 PUFF INHALER INH SCH ×2 (07:29→18:52)
[2023-05-19] MEDS: methylPREDNISolone Sod Succ 40 MG VIAL IVP SCH (08:13)
[2023-05-19] MEDS: Sertraline 25 MG TAB PO SCH (08:13)
[2023-05-19] MEDS: Atorvastatin Calcium 20 MG TAB PO SCH (08:13)
[2023-05-19] MEDS: Pantoprazole 40 MG VIAL IVP SCH (08:13)
[2023-05-19] MEDS: Ketoconazole 2% Cream 15 gm Tube TOP SCH ×2 (08:13→20:24)
[2023-05-19] MEDS: Insulin Glargine 30 UNITS/0.3 ML VIAL SC SCH (08:13)
[2023-05-19] MEDS: Folic Acid 1 MG TAB PO SCH (08:13)
[2023-05-19] MEDS: Aspirin Chewable 81 MG TAB PO SCH (08:13)
[2023-05-19] MEDS: Tamsulosin HCl 0.4 MG CAP PO SCH (08:13)
[2023-05-19] MEDS: Lidocaine 4% Patch TD SCH (08:14)
[2023-05-19] MEDS: Carvedilol 3.125 MG TAB PO SCH ×2 (08:14→20:23)
[2023-05-20 04:25] LABS: ALT (SGPT) 28 U/L (8-55); AST (SGOT) 21 U/L (5-34); Albumin 3.3 g/dL (3.5-5.0); Alkaline Phosphatase 155 U/L (40-110); Anion Gap 13 mmol/L (10-20); BUN (Urea Nitrogen) 33 mg/dL (8.4-25.7); Bilirubin, Total 0.5 mg/dL (0.2-1.2); Calc. Creatinine Clearance 137 mL/min (70-130); Calcium 9.5 mg/dL (7.8-10.44); Carbon Dioxide 37 mmol/L (22-29); Chloride 108 mmol/L (98-107); Estimated GFR 108; Globulin 3.8 g/dL (2.4-3.5); Glucose 137 mg/dL (70-105); Potassium 4.2 mmol/L (3.5-5.1); Protein, Total 7.1 g/dL (6.0-8.3)
[2023-05-20 04:36] LABS: Sodium 154 mmol/L (136-145)
[2023-05-20] MEDS: HumaLOG 300 UNITS/3 ML VIAL SC PRN ×3 (05:11→17:43)
[2023-05-20] MEDS: Ipratropium/Albuterol 3 ML NEB NEB SCH ×3 (06:11→19:10)
[2023-05-20] MEDS: Mometasone 200 MCG/Formoterol 5 MCG 120 PUFF INHALER INH SCH ×2 (06:12→17:33)
[2023-05-20] MEDS: Atorvastatin Calcium 20 MG TAB PO SCH (10:02)
[2023-05-20] MEDS: Aspirin Chewable 81 MG TAB PO SCH (10:02)
[2023-05-20] MEDS: predniSONE 20 MG TAB PER TUBE SCH (10:02)
[2023-05-20] MEDS: Folic Acid 1 MG TAB PO SCH (10:02)
[2023-05-20] MEDS: Carvedilol 3.125 MG TAB PO SCH ×2 (10:03→20:28)
[2023-05-20] MEDS: Tamsulosin HCl 0.4 MG CAP PO SCH (10:03)
[2023-05-20] MEDS: Sertraline 25 MG TAB PO SCH (10:03)
[2023-05-20] MEDS: Insulin Glargine 30 UNITS/0.3 ML VIAL SC SCH (10:04)
[2023-05-20] MEDS: Pantoprazole 40 MG VIAL IVP SCH (10:04)
[2023-05-20] MEDS: Ketoconazole 2% Cream 15 gm Tube TOP SCH ×2 (10:05→20:29)
[2023-05-20] MEDS: Lidocaine 4% Patch TD SCH (10:06)
[2023-05-20 12:16] LABS: Fungus Culture Final report (.)
[2023-05-20] MEDS: Transdermal Patch Removal TOP SCH (20:29)
[2023-05-21 05:56] LABS: #Monocytes 0.2 thou/uL (0.11-0.59); #Neutrophils 0.9 thou/uL (1.40-6.50); %Eosinophils 1.5 % (0.0-10.0); %Lymphocytes 56.9 % (21.0-51.0); %Monocytes 6.9 % (0.0-10.0); %Neutrophils 34.3 % (42.0-75.0); Hemoglobin 9.9 g/dL (14.0-18.0); Mean Corpuscular HGB CONC 29.3 g/dL (32.0-36.0); Mean Corpuscular Volume 102.4 fl (78.0-98.0); Mean Platelet Volume 11.1 fL (7.4-10.4); RBC Distribution Width 17.2 % (11.5-14.5); White Blood Cell (WBC) Count 2.7 10x3/uL (4.8-10.8)
[2023-05-21 05:57] LABS: Platelet Count 92 10x3/uL (130-400)
[2023-05-21 06:15] LABS: ALT (SGPT) 28 U/L (8-55); AST (SGOT) 18 U/L (5-34); Albumin 3.1 g/dL (3.5-5.0); Alkaline Phosphatase 158 U/L (40-110); Anion Gap 14 mmol/L (10-20); BUN (Urea Nitrogen) 47 mg/dL (8.4-25.7); Bilirubin, Total 0.4 mg/dL (0.2-1.2); Calc. Creatinine Clearance 132 mL/min (70-130); Calcium 9.2 mg/dL (7.8-10.44); Carbon Dioxide 36 mmol/L (22-29); Chloride 109 mmol/L (98-107); Estimated GFR 108; Globulin 3.6 g/dL (2.4-3.5); Glucose 84 mg/dL (70-105); Potassium 3.6 mmol/L (3.5-5.1); Protein, Total 6.7 g/dL (6.0-8.3)
[2023-05-21 06:19] LABS: Sodium 155 mmol/L (136-145)
[2023-05-21] MEDS: Ipratropium/Albuterol 3 ML NEB NEB SCH ×3 (07:05→20:03)
[2023-05-21] MEDS: Mometasone 200 MCG/Formoterol 5 MCG 120 PUFF INHALER INH SCH ×2 (07:07→20:02)
[2023-05-21] MEDS: Aspirin Chewable 81 MG TAB PO SCH (09:07)
[2023-05-21] MEDS: Tamsulosin HCl 0.4 MG CAP PO SCH (09:07)
[2023-05-21] MEDS: predniSONE 20 MG TAB PER TUBE SCH (09:07)
[2023-05-21] MEDS: Carvedilol 3.125 MG TAB PO SCH ×2 (09:07→21:30)
[2023-05-21] MEDS: Atorvastatin Calcium 20 MG TAB PO SCH (09:07)
[2023-05-21] MEDS: Lidocaine 4% Patch TD SCH (09:08)
[2023-05-21] MEDS: Folic Acid 1 MG TAB PO SCH (09:08)
[2023-05-21] MEDS: Pantoprazole 40 MG VIAL IVP SCH (09:08)
[2023-05-21] MEDS: Sertraline 25 MG TAB PO SCH (09:08)
[2023-05-21] MEDS: Ketoconazole 2% Cream 15 gm Tube TOP SCH ×2 (09:09→21:31)
[2023-05-21] MEDS: Insulin Glargine 30 UNITS/0.3 ML VIAL SC SCH (09:10)
[2023-05-21] MEDS: HumaLOG 300 UNITS/3 ML VIAL SC PRN ×3 (12:23→21:32)
[2023-05-21] MEDS ORDERED: Dextrose 5% in Water 500 ML IV SCH (12:45)
[2023-05-21] MEDS: Dextrose 5% in Water 1,000 ML IV SCH (17:23)
[2023-05-21] MEDS: Transdermal Patch Removal TOP SCH (21:31)
[2023-05-22] MEDS: Dextrose 5% in Water 1,000 ML IV SCH ×2 (00:58→21:17)
[2023-05-22 06:47] LABS: #Monocytes 0.2 thou/uL (0.11-0.59); #Neutrophils 1.2 thou/uL (1.40-6.50); %Eosinophils 0.6 % (0.0-10.0); %Lymphocytes 53.1 % (21.0-51.0); %Monocytes 7.1 % (0.0-10.0); %Neutrophils 38.6 % (42.0-75.0); Hemoglobin 8.9 g/dL (14.0-18.0); Mean Corpuscular HGB CONC 30.1 g/dL (32.0-36.0); Mean Corpuscular Volume 99.7 fl (78.0-98.0); RBC Distribution Width 16.8 % (11.5-14.5); Red Blood Cell (RBC) Count 2.97 mill/uL (4.70-6.10); White Blood Cell (WBC) Count 3.1 10x3/uL (4.8-10.8)
[2023-05-22 07:02] LABS: Platelet Count 99 10x3/uL (130-400)
[2023-05-22] MEDS: Ipratropium/Albuterol 3 ML NEB NEB SCH ×2 (07:05→14:03)
[2023-05-22 07:17] LABS: ALT (SGPT) 22 U/L (8-55); AST (SGOT) 11 U/L (5-34); Albumin 2.8 g/dL (3.5-5.0); Alkaline Phosphatase 133 U/L (40-110); Anion Gap 10 mmol/L (10-20); BUN (Urea Nitrogen) 39 mg/dL (8.4-25.7); Bilirubin, Total 0.4 mg/dL (0.2-1.2); Calc. Creatinine Clearance 132 mL/min (70-130); Calcium 8.6 mg/dL (7.8-10.44); Carbon Dioxide 34 mmol/L (22-29); Chloride 104 mmol/L (98-107); Estimated GFR 107; Globulin 3.2 g/dL (2.4-3.5); Glucose 169 mg/dL (70-105); Potassium 3.4 mmol/L (3.5-5.1); Sodium 145 mmol/L (136-145)
[2023-05-22] MEDS: Mometasone 200 MCG/Formoterol 5 MCG 120 PUFF INHALER INH SCH ×2 (07:23→17:40)
[2023-05-22] MEDS: predniSONE 20 MG TAB PER TUBE SCH (08:51)
[2023-05-22] MEDS: Pantoprazole 40 MG VIAL IVP SCH (08:51)
[2023-05-22] MEDS: Carvedilol 3.125 MG TAB PO SCH ×2 (08:51→21:17)
[2023-05-22] MEDS: Ketoconazole 2% Cream 15 gm Tube TOP SCH ×2 (08:51→21:18)
[2023-05-22] MEDS: Lidocaine 4% Patch TD SCH (08:51)
[2023-05-22] MEDS: Atorvastatin Calcium 20 MG TAB PO SCH (08:52)
[2023-05-22] MEDS: Aspirin Chewable 81 MG TAB PO SCH (08:52)
[2023-05-22] MEDS: Folic Acid 1 MG TAB PO SCH (08:52)
[2023-05-22] MEDS: Tamsulosin HCl 0.4 MG CAP PO SCH (08:52)
[2023-05-22] MEDS: Insulin Glargine 30 UNITS/0.3 ML VIAL SC SCH (08:52)
[2023-05-22] MEDS: Potassium Chloride 20 MEQ in Premix Bag 1 BAG IVPB SCH ×2 (08:56→11:20)
[2023-05-22] MEDS: Sertraline 25 MG TAB PO SCH (08:56)
[2023-05-22] MEDS: HumaLOG 300 UNITS/3 ML VIAL SC PRN ×3 (14:24→21:34)
[2023-05-22 16:52] LABS: Potassium 4.3 mmol/L (3.5-5.1)
[2023-05-22] MEDS: Transdermal Patch Removal TOP SCH (21:19)
[2023-05-23] MEDS: Ipratropium/Albuterol 3 ML NEB NEB SCH ×4 (02:29→22:18)
[2023-05-23 06:53] LABS: Anion Gap 10 mmol/L (10-20); BUN (Urea Nitrogen) 24 mg/dL (8.4-25.7); Calc. Creatinine Clearance 137 mL/min (70-130); Calcium 8.2 mg/dL (7.8-10.44); Carbon Dioxide 32 mmol/L (22-29); Chloride 103 mmol/L (98-107); Estimated GFR 108; Glucose 163 mg/dL (70-105); Potassium 4.3 mmol/L (3.5-5.1); Sodium 141 mmol/L (136-145)
[2023-05-23] MEDS: Mometasone 200 MCG/Formoterol 5 MCG 120 PUFF INHALER INH SCH ×2 (07:44→18:52)
[2023-05-23] MEDS: Sertraline 25 MG TAB PO SCH (08:36)
[2023-05-23] MEDS: Folic Acid 1 MG TAB PO SCH (08:36)
[2023-05-23] MEDS: Atorvastatin Calcium 20 MG TAB PO SCH (08:36)
[2023-05-23] MEDS: Tamsulosin HCl 0.4 MG CAP PO SCH (08:36)
[2023-05-23] MEDS: Aspirin Chewable 81 MG TAB PO SCH (08:36)
[2023-05-23] MEDS: predniSONE 20 MG TAB PER TUBE SCH (08:36)
[2023-05-23] MEDS: Insulin Glargine 30 UNITS/0.3 ML VIAL SC SCH ×2 (08:37→22:07)
[2023-05-23] MEDS: Pantoprazole 40 MG GRANULES PACKET PER TUBE SCH (08:37)
[2023-05-23] MEDS: Lidocaine 4% Patch TD SCH (08:38)
[2023-05-23] MEDS: Ketoconazole 2% Cream 15 gm Tube TOP SCH ×2 (09:02→22:26)
[2023-05-23] MEDS: Carvedilol 3.125 MG TAB PO SCH ×2 (09:07→22:06)
[2023-05-23] MEDS: HumaLOG 300 UNITS/3 ML VIAL SC PRN ×3 (12:50→22:29)
[2023-05-23] MEDS: Transdermal Patch Removal TOP SCH (22:30)
[2023-05-24] MEDS: Ipratropium/Albuterol 3 ML NEB NEB SCH ×3 (06:45→23:47)
[2023-05-24] MEDS: Mometasone 200 MCG/Formoterol 5 MCG 120 PUFF INHALER INH SCH ×2 (06:47→18:37)
[2023-05-24] MEDS: predniSONE 20 MG TAB PER TUBE SCH (08:48)
[2023-05-24] MEDS: Aspirin Chewable 81 MG TAB PO SCH (08:48)
[2023-05-24] MEDS: Insulin Glargine 30 UNITS/0.3 ML VIAL SC SCH ×2 (08:49→21:35)
[2023-05-24] MEDS: Carvedilol 3.125 MG TAB PO SCH ×2 (08:49→21:34)
[2023-05-24] MEDS: Folic Acid 1 MG TAB PO SCH (08:49)
[2023-05-24] MEDS: Atorvastatin Calcium 20 MG TAB PO SCH (08:49)
[2023-05-24] MEDS: Sertraline 25 MG TAB PO SCH (08:49)
[2023-05-24] MEDS: Tamsulosin HCl 0.4 MG CAP PO SCH (08:49)
[2023-05-24] MEDS: Lidocaine 4% Patch TD SCH (08:51)
[2023-05-24] MEDS: Ketoconazole 2% Cream 15 gm Tube TOP SCH ×2 (08:51→21:36)
[2023-05-24] MEDS: Pantoprazole 40 MG GRANULES PACKET PER TUBE SCH (08:51)
[2023-05-24 14:34] VITALS: BMI 34.3
[2023-05-24] MEDS: HumaLOG 300 UNITS/3 ML VIAL SC PRN ×3 (14:55→21:36)
[2023-05-24] MEDS: Transdermal Patch Removal TOP SCH (22:50)
[2023-05-25] MEDS: Ipratropium/Albuterol 3 ML NEB NEB SCH ×3 (06:53→19:03)
[2023-05-25] MEDS: Mometasone 200 MCG/Formoterol 5 MCG 120 PUFF INHALER INH SCH ×2 (06:55→19:04)
[2023-05-25] MEDS: Lidocaine 4% Patch TD SCH (09:20)
[2023-05-25] MEDS: Insulin Glargine 30 UNITS/0.3 ML VIAL SC SCH ×2 (09:20→21:49)
[2023-05-25] MEDS: Sertraline 25 MG TAB PO SCH (09:21)
[2023-05-25] MEDS: Folic Acid 1 MG TAB PO SCH (09:21)
[2023-05-25] MEDS: Aspirin Chewable 81 MG TAB PO SCH (09:21)
[2023-05-25] MEDS: Carvedilol 3.125 MG TAB PO SCH ×2 (09:21→21:49)
[2023-05-25] MEDS: Tamsulosin HCl 0.4 MG CAP PO SCH (09:21)
[2023-05-25] MEDS: Atorvastatin Calcium 20 MG TAB PO SCH (09:21)
[2023-05-25] MEDS: predniSONE 20 MG TAB PER TUBE SCH (09:21)
[2023-05-25] MEDS: Pantoprazole 40 MG GRANULES PACKET PER TUBE SCH (09:24)
[2023-05-25] MEDS: Ketoconazole 2% Cream 15 gm Tube TOP SCH ×2 (09:24→21:51)
[2023-05-25] MEDS: HumaLOG 300 UNITS/3 ML VIAL SC PRN (21:51)
[2023-05-25] MEDS: Transdermal Patch Removal TOP SCH (21:52)
[2023-05-26 09:11] VITALS: BP 125/85; TEMP 97.8
[2023-05-26] MEDS: Sertraline 25 MG TAB PO SCH (09:35)
[2023-05-26] MEDS: Atorvastatin Calcium 20 MG TAB PO SCH ×2 (09:35→09:40)
[2023-05-26] MEDS: Ketoconazole 2% Cream 15 gm Tube TOP SCH (09:35)
[2023-05-26] MEDS: Aspirin Chewable 81 MG TAB PO SCH (09:35)
[2023-05-26] MEDS: Tamsulosin HCl 0.4 MG CAP PO SCH (09:35)
[2023-05-26] MEDS: Insulin Glargine 30 UNITS/0.3 ML VIAL SC SCH (09:35)
[2023-05-26] MEDS: Pantoprazole 40 MG GRANULES PACKET PER TUBE SCH (09:35)
[2023-05-26] MEDS: Folic Acid 1 MG TAB PO SCH (09:35)
[2023-05-26] MEDS: Carvedilol 3.125 MG TAB PO SCH (09:35)
[2023-05-26] MEDS: predniSONE 20 MG TAB PER TUBE SCH (09:35)
[2023-05-26] MEDS: Lidocaine 4% Patch TD SCH (09:41)
[2023-05-26] MEDS: Ipratropium/Albuterol 3 ML NEB NEB SCH (10:42)
[2023-05-26] MEDS: Mometasone 200 MCG/Formoterol 5 MCG 120 PUFF INHALER INH SCH (10:43)
== END 2023-05-26 13:55 | disposition home or self-care (01) | DRG 4 ==
LOC: ERS 14:15 → IMCU/EMU 18:29 → CCU 04-23 02:55 → IMCU/EMU 04-25 05:29 → CCU 05-03 09:25 → IMCU/EMU 05-16 15:36 → SURG B 05-20 22:01
PROVIDERS: ADMIT Family Medicine; ATTEND Family Medicine
PROC: 5A09357 Assistance with Respiratory Ventilation, Less than 24 Consecutive Hours, Continuous Positive Airway Pressure (ICD-10-PCS; principal; 2023-04-22)
PROC: 3E03329 Introduction of Other Anti-infective into Peripheral Vein, Percutaneous Approach (ICD-10-PCS; 2023-04-22)
PROC: 4A133R1 Monitoring of Arterial Saturation, Peripheral, Percutaneous Approach (ICD-10-PCS; 2023-04-22)
PROC: 0BH17EZ Insertion of Endotracheal Airway into Trachea, Via Natural or Artificial Opening (ICD-10-PCS; 2023-04-23)
PROC: 0BDB8ZX Extraction of Left Lower Lobe Bronchus, Via Natural or Artificial Opening Endoscopic, Diagnostic (ICD-10-PCS; 2023-04-23)
PROC: 0BD68ZX Extraction of Right Lower Lobe Bronchus, Via Natural or Artificial Opening Endoscopic, Diagnostic (ICD-10-PCS; 2023-04-23)
PROC: 5A1945Z Respiratory Ventilation, 24-96 Consecutive Hours (ICD-10-PCS; 2023-04-23)
PROC: 0BCB8ZZ Extirpation of Matter from Left Lower Lobe Bronchus, Via Natural or Artificial Opening Endoscopic (ICD-10-PCS; 2023-04-23)
PROC: 0BC68ZZ Extirpation of Matter from Right Lower Lobe Bronchus, Via Natural or Artificial Opening Endoscopic (ICD-10-PCS; 2023-04-23)
PROC: 5A09357 Assistance with Respiratory Ventilation, Less than 24 Consecutive Hours, Continuous Positive Airway Pressure (ICD-10-PCS; 2023-04-24)
PROC: 5A09457 Assistance with Respiratory Ventilation, 24-96 Consecutive Hours, Continuous Positive Airway Pressure (ICD-10-PCS; 2023-04-29)
PROC: 5A1955Z Respiratory Ventilation, Greater than 96 Consecutive Hours (ICD-10-PCS; 2023-05-03)
PROC: 0B113Z4 Bypass Trachea to Cutaneous, Percutaneous Approach (ICD-10-PCS; 2023-05-04)
PROC: 0DH63UZ Insertion of Feeding Device into Stomach, Percutaneous Approach (ICD-10-PCS; 2023-05-04)
PROC: 3E0G76Z Introduction of Nutritional Substance into Upper GI, Via Natural or Artificial Opening (ICD-10-PCS; 2023-05-04)
PROC: 0B21XFZ Change Tracheostomy Device in Trachea, External Approach (ICD-10-PCS; 2023-05-20)
DX: A41.9 Sepsis, unspecified organism (principal); G93.41 Metabolic encephalopathy; J96.21 Acute and chronic respiratory failure with hypoxia; J96.22 Acute and chronic respiratory failure with hypercapnia; J69.0 Pneumonitis due to inhalation of food and vomit; J15.9 Unspecified bacterial pneumonia; R65.21 Severe sepsis with septic shock; E87.29 Other acidosis; C96.6 Unifocal Langerhans-cell histiocytosis; E87.0 Hyperosmolality and hypernatremia; E66.2 Morbid (severe) obesity with alveolar hypoventilation; G72.81 Critical illness myopathy; D61.818 Other pancytopenia; Z20.822 Contact with and (suspected) exposure to COVID-19; Z96.652 Presence of left artificial knee joint; J45.909 Unspecified asthma, uncomplicated; E78.5 Hyperlipidemia, unspecified; E11.22 Type 2 diabetes mellitus with diabetic chronic kidney disease; R53.1 Weakness; R53.81 Other malaise; E87.6 Hypokalemia; E11.65 Type 2 diabetes mellitus with hyperglycemia; I12.9 Hypertensive chronic kidney disease with stage 1 through stage 4 chronic kidney disease, or unspecified chronic kidney disease; J84.10 Pulmonary fibrosis, unspecified; N18.1 Chronic kidney disease, stage 1; D63.1 Anemia in chronic kidney disease; E11.649 Type 2 diabetes mellitus with hypoglycemia without coma; H93.A3 Pulsatile tinnitus, bilateral; L30.4 Erythema intertrigo; Z87.891 Personal history of nicotine dependence; Z90.49 Acquired absence of other specified parts of digestive tract; Z79.4 Long term (current) use of insulin; Z79.82 Long term (current) use of aspirin; Z79.52 Long term (current) use of systemic steroids; Z79.899 Other long term (current) drug therapy; Z68.34 Body mass index [BMI] 34.0-34.9, adult; Z93.3 Colostomy status; F32.A Depression, unspecified
CPT/HCPCS: 31624; 36415; 36416; 36600; 71045; 71275; 74018; 80048; 80053; 80202; 81001; 82533; 82805; 83036; 83605; 83735; 83880; 83930; 83935; 84100; 84145; 84295; 84300; 84484; 85025; 85060; 87040; 87070; 87086; 87102; 87116; 87205; 87206; 87449; 87635; 87899; 88112; 88305; 88312; 89051; 93005; 93010; 94002; 94003; 94640; 94660; 94760; 96365; 96367; 97139; C9113; J0456; J0690; J0692; J0696; J1200; J1630; J1650; J1815; J1940; J1956; J2060; J2185; J2250; J2272; J2405; J2597; J2704; J2920; J3010; J3370; J3370-JW; J3475; J3480; J3490; J7042; J7050; J7070; J7120; J7512; J7620; J7999; P9047; Q9967; S0028

== ENCOUNTER 2023-07-01 21:11 | Inpatient (IN) | payer MEDICAID, OTHER, SELFPAY ==
[2023-07-01] MEDS ORDERED: NOREPINEPHRINE 8 MG/250 ML-D5W 250 ML ONE (21:33)
[2023-07-01 21:58] LABS: Bacteria/HPF 3+ HPF (None Seen); Bilirubin Negative (Negative); Blood, Urine Negative (Negative); CAUTI Indications for Culture Immunosuppressed; Clarity Turbid (Clear); Glucose, Urine (Dipstick) Greater than 1000 mg/dL (Negative); Ketone, Urine Negative (Negative); Leukocyte Negative Leu/uL (Negative); Mucous/LPF Rare LPF (<2+); Nitrite Negative (Negative); Protein, Urine (Dipstick) Negative (Neg-Trace); RBC/HPF None Seen HPF (0-3); Specific Gravity, Urine 1.007 (1.002-1.036); Squamous Epithelial None Seen HPF (0-3); Urobilinogen Normal mg/dL (Less than 2); WBC/HPF 0-3 HPF (0-3)
[2023-07-01 22:06] LABS: Urine Culture Reflex Yes Yes
[2023-07-01 22:25] LABS: Base Excess (BEa) 0.6 mEq/L (-2.0 to +3.0); CO2 Tension 51.4 mmHg (35.0-45.0); Calcium, Ionized (arterial) 1.14 mmol/L (1.12-1.30); Carboxyhemoglobin (COHb) 0.5 gm% (0.0-3.0); Hematocrit-ABG 35 % (42.0-52.0); O2 Tension (PaO2), arterial 93.7 mmHg (80.0-100.0); pH, Arterial 7.339 (7.35-7.45)
[2023-07-01 23:00] LABS: #Monocytes 1.3 thou/uL (0.11-0.59); #Neutrophils 17.1 thou/uL (1.40-6.50); %Basophils 0.1 % (0.0-1.0); %Lymphocytes 8.1 % (21.0-51.0); %Monocytes 6.4 % (0.0-10.0); %Neutrophils 84.3 % (42.0-75.0); Hematocrit 39.3 % (42.0-52.0); Hemoglobin 10.6 g/dL (14.0-18.0); Mean Corpuscular Hemoglobin 27.9 pg (27.0-31.0); Mean Corpuscular Volume 103.4 fl (78.0-98.0); Mean Platelet Volume 8.4 fL (7.4-10.4); Platelet Count 124 10x3/uL (130-400); RBC Distribution Width 15.9 % (11.5-14.5); White Blood Cell (WBC) Count 20.3 10x3/uL (4.8-10.8)
[2023-07-01 23:01] LABS: Manual Diff?? YES
[2023-07-01] MEDS ORDERED: Ondansetron PF 4 MG/2 ML Vial IVP PRN (23:02)
[2023-07-01] MEDS ORDERED: Ipratropium/Albuterol 3 ML NEB NEB PRN ×2 (23:07→23:55)
[2023-07-01] MEDS ORDERED: Sodium Chloride 0.45% 1,000 ML IV SCH (23:15)
[2023-07-01 23:22] LABS: Anisocytosis SLIGHT = 6-15 cells HPF (0-5); Band 25 % (5-11); Burr Cells SLIGHT = 2-5 cells HPF (0-1); CellaVision Operator ID lab.sh2; Hypochromia SLIGHT = 6-15 cells HPF (0-5); Lymphocytes 10 % (21-51); Macrocytosis SLIGHT = 6-15 cells HPF (0-5); Monocytes 2 % (0-10); Neutrophil 62 % (42-75); Ovalocytes SLIGHT = 2-5 cells HPF (0-1); Platelet Adequacy Comment Platelets Decreased; Poikilocytosis SLIGHT = 6-15 cells HPF (0-5); Polychromasia SLIGHT = 2-3 cells HPF (0-2); Smudge Cells 8.9 %; Tear Drops SLIGHT = 2-5 cells HPF (0-1); Total Cell Count 101
[2023-07-01] MEDS ORDERED: Propofol BOLUS 1,000 MG/100 ML VIAL IV PRN (23:45)
[2023-07-01] MEDS ORDERED: DISCONTINUE PREVIOUS NARCOTIC PAIN MEDICATIONS AND BENZODIAZEPINES FS SCH (23:45)
[2023-07-01] MEDS ORDERED: Morphine 2 MG/ML VIAL SLOW IVP PRN (23:45)
[2023-07-01] MEDS ORDERED: Propofol 1,000 MG/100 ML VIAL IV PRN (23:45)
[2023-07-01] MEDS ORDERED: Fentanyl CADD 100 ML IV SCH (23:45)
[2023-07-01] MEDS ORDERED: Fentanyl BOLUS 250 ML IVPB PRN (23:45)
[2023-07-01] MEDS ORDERED: Vancomycin HCl 1 GM in Sodium Chloride 0.9% 250 ML 250 ML IVPB SCH (23:45)
[2023-07-01] MEDS ORDERED: Ventilator Sedation Protocol 1 EACH FS ONE (23:48)
[2023-07-01] MEDS ORDERED: Dextrose 5% in Water 1,000 ML IV PRN (23:50)
[2023-07-01] MEDS ORDERED: Dextrose 50% Abboject 50 ML SYRINGE SLOW IVP PRN (23:50)
[2023-07-01] MEDS ORDERED: Glucagon 1 MG/ML KIT IM PRN (23:50)
[2023-07-01] MEDS ORDERED: Electrolyte Replacement Protocol 1 EACH FS PRN (23:50)
[2023-07-01] MEDS ORDERED: Cefepime 1 GM in Sodium Chloride 0.9% 100 ML IVPB SCH (23:59)
[2023-07-01] MEDS ORDERED: Vancomycin 1 GM in Premix Bag 1 BAG IVPB SCH (23:59)
[2023-07-02] MEDS ORDERED: Sodium Chloride 0.45% 1,000 ML IV SCH ×2 (00:15)
[2023-07-02] MEDS ORDERED: NOREPINEPHRINE 8 MG/250 ML-D5W 250 ML IVPB SCH (00:15)
[2023-07-02] MEDS: methylPREDNISolone Sod Succ 40 MG VIAL IVP SCH ×5 (00:45→23:51)
[2023-07-02 03:47] LABS: Legionella Urinary Ag Negative (Negative); Strep pneumo Urine Ag NEGATIVE (NEGATIVE)
[2023-07-02 04:53] LABS: #Monocytes 0.7 thou/uL (0.11-0.59); #Neutrophils 13.3 thou/uL (1.40-6.50); %Basophils 0.3 % (0.0-1.0); %Lymphocytes 9.2 % (21.0-51.0); %Monocytes 4.4 % (0.0-10.0); %Neutrophils 83.3 % (42.0-75.0); Hemoglobin 10.2 g/dL (14.0-18.0); Mean Corpuscular Hemoglobin 28.4 pg (27.0-31.0); Mean Platelet Volume 10.4 fL (7.4-10.4); RBC Distribution Width 15.5 % (11.5-14.5); Red Blood Cell (RBC) Count 3.59 mill/uL (4.70-6.10)
[2023-07-02] MEDS ORDERED: Cefepime 1 GM in Sodium Chloride 0.9% 100 ML IVPB SCH (05:00)
[2023-07-02 05:07] LABS: Manual Diff?? YES; Mean Corpuscular Volume 94.7 fl (78.0-98.0)
[2023-07-02 05:08] LABS: Platelet Count 123 10x3/uL (130-400)
[2023-07-02 05:18] LABS: ALT (SGPT) 21 U/L (8-55); AST (SGOT) 37 U/L (5-34); Albumin 2.5 g/dL (3.5-5.0); Alkaline Phosphatase 217 U/L (40-110); Anion Gap 15 mmol/L (10-20); BUN (Urea Nitrogen) 15 mg/dL (8.4-25.7); Bilirubin, Total 0.3 mg/dL (0.2-1.2); Calc. Creatinine Clearance 166 mL/min (70-130); Calcium 8.5 mg/dL (7.8-10.44); Carbon Dioxide 24 mmol/L (22-29); Chloride 114 mmol/L (98-107); Estimated GFR 115; Globulin 3.9 g/dL (2.4-3.5); Glucose 141 mg/dL (70-105); Potassium 3.9 mmol/L (3.5-5.1); Protein, Total 6.4 g/dL (6.0-8.3); Sodium 149 mmol/L (136-145)
[2023-07-02 05:40] LABS: Anisocytosis SLIGHT = 6-15 cells HPF (0-5); Band 31 % (5-11); Burr Cells SLIGHT = 2-5 cells HPF (0-1); CellaVision Operator ID lab.sh2; Hypochromia SLIGHT = 6-15 cells HPF (0-5); Lymphocytes 7 % (21-51); Macrocytosis SLIGHT = 6-15 cells HPF (0-5); Metamyelocyte 3 % (0-0); Monocytes 5 % (0-10); Neutrophil 55 % (42-75); Platelet Adequacy Comment Platelets Decreased; Poikilocytosis SLIGHT = 6-15 cells HPF (0-5); Polychromasia SLIGHT = 2-3 cells HPF (0-2); Smudge Cells 7.9 %; Total Cell Count 101
[2023-07-02] MEDS: Ipratropium/Albuterol 3 ML NEB NEB SCH ×4 (06:54→18:14)
[2023-07-02 07:15] LABS: Actual Bicarbonate (HCO3a) 25.4 mEq/L (22-28); Base Excess (BEa) 1.5 mEq/L (-2.0 to +3.0); CO2 Tension 37.5 mmHg (35.0-45.0); Calcium, Ionized (arterial) 1.11 mmol/L (1.12-1.30); Carboxyhemoglobin (COHb) 0.7 gm% (0.0-3.0); Hematocrit-ABG 35 % (42.0-52.0); Hemoglobin (Hb) 11.9 g/dL (14.0-18.0); O2 Tension (PaO2), arterial 106.9 mmHg (80.0-100.0); Potassium - ABG Lab 3.62 mmol/L (3.70-5.30); pH, Arterial 7.449 (7.35-7.45)
[2023-07-02 07:17] LABS: Puncture Site RRA
[2023-07-02 07:18] LABS: ALV-art Gradient 202.725 mmHg (0-20)
[2023-07-02] MEDS: Atorvastatin Calcium 20 MG TAB PO SCH (09:49)
[2023-07-02] MEDS: Famotidine/PF 20 mg/2ml Vial SLOW IVP SCH ×2 (09:49→21:24)
[2023-07-02] MEDS: Micafungin 100 MG in Sodium Chloride 0.9% 100 ML IVPB SCH (09:49)
[2023-07-02] MEDS: Dextrose 5% in Water 1,000 ML IV SCH (09:51)
[2023-07-02] MEDS: VANCOMYCIN 1.25 GM/250 ML BAG 1.25 GM in Premix Bag 1 BAG IVPB SCH ×2 (10:28→19:58)
[2023-07-02] MEDS ORDERED: Nystatin Powder 15 GM BOT TOP PRN (12:35)
[2023-07-02] MEDS: Cefepime 2 GM in Sodium Chloride 0.9% 100 ML IVPB SCH (17:44)
[2023-07-02] MEDS: LevoFLOXacin 750 mg/D5W 750 MG in Premix Bag 1 BAG IVPB SCH (19:57)
[2023-07-02] MEDS: HumaLOG 300 UNITS/3 ML VIAL SC PRN ×2 (19:58→21:35)
[2023-07-02] MEDS: Lorazepam 2 MG/ML VIAL SLOW IVP PRN (23:50)
[2023-07-03] MEDS: Lorazepam 2 MG/ML VIAL SLOW IVP PRN ×2 (02:13→20:48)
[2023-07-03 04:57] LABS: Hematocrit 28.4 % (42.0-52.0); Hemoglobin 8.3 g/dL (14.0-18.0); Mean Corpuscular HGB CONC 29.2 g/dL (32.0-36.0); Mean Corpuscular Hemoglobin 28.2 pg (27.0-31.0); Mean Corpuscular Volume 96.6 fl (78.0-98.0); Mean Platelet Volume 10.2 fL (7.4-10.4); RBC Distribution Width 15.8 % (11.5-14.5); Red Blood Cell (RBC) Count 2.94 mill/uL (4.70-6.10)
[2023-07-03 05:00] LABS: Delete Auto Diff?? YES; Manual Diff?? YES; Platelet Count 88 10x3/uL (130-400)
[2023-07-03] MEDS: Cefepime 2 GM in Sodium Chloride 0.9% 100 ML IVPB SCH (05:16)
[2023-07-03] MEDS: methylPREDNISolone Sod Succ 40 MG VIAL IVP SCH ×4 (05:17→23:15)
[2023-07-03] MEDS: Dextrose 5% in Water 1,000 ML IV SCH (05:17)
[2023-07-03 05:25] LABS: Anion Gap 9 mmol/L (10-20); BUN (Urea Nitrogen) 20 mg/dL (8.4-25.7); Calc. Creatinine Clearance 159 mL/min (70-130); Calcium 8.2 mg/dL (7.8-10.44); Carbon Dioxide 26 mmol/L (22-29); Chloride 114 mmol/L (98-107); Estimated GFR 113; Glucose 174 mg/dL (70-105); Potassium 3.4 mmol/L (3.5-5.1); Sodium 146 mmol/L (136-145)
[2023-07-03 05:32] LABS: Band 28 % (5-11); CellaVision Operator ID LAB.CLH1; Hypochromia SLIGHT = 6-15 cells HPF (0-5); Lymphocytes 6 % (21-51); Metamyelocyte 6 % (0-0); Monocytes 2 % (0-10); Neutrophil 58 % (42-75); Platelet Adequacy Comment Platelets Decreased; Poikilocytosis SLIGHT = 6-15 cells HPF (0-5); Polychromasia MODERATE = 3-4 cells HPF (0-2); Total Cell Count 103
[2023-07-03] MEDS: Ipratropium/Albuterol 3 ML NEB NEB SCH ×4 (07:06→18:34)
[2023-07-03 07:10] LABS: Vancomycin, Trough 21.5 ug/mL
[2023-07-03] MEDS ORDERED: Electrolyte Replacement Protocol FS PRN (07:30)
[2023-07-03 07:36] LABS: Actual Bicarbonate (HCO3a) 27.2 mEq/L (22-28); Base Excess (BEa) 1.9 mEq/L (-2.0 to +3.0); CO2 Tension 45.7 mmHg (35.0-45.0); Calcium, Ionized (arterial) 1.13 mmol/L (1.12-1.30); Carboxyhemoglobin (COHb) 0.3 gm% (0.0-3.0); Hematocrit-ABG 29 % (42.0-52.0); Hemoglobin (Hb) 9.7 g/dL (14.0-18.0); Potassium - ABG Lab 3.47 mmol/L (3.70-5.30); pH, Arterial 7.392 (7.35-7.45)
[2023-07-03 08:05] LABS: Puncture Site LRA
[2023-07-03 08:06] LABS: ALV-art Gradient 144.075 mmHg (0-20)
[2023-07-03 08:11] LABS: Puncture Site LRA
[2023-07-03] MEDS: Potassium Chloride 20 MEQ in Premix Bag 1 BAG IVPB SCH ×2 (08:51→11:14)
[2023-07-03] MEDS: Vancomycin 1 GM in Premix Bag 1 BAG IVPB SCH ×2 (08:52→23:14)
[2023-07-03] MEDS: Famotidine/PF 20 mg/2ml Vial SLOW IVP SCH ×2 (08:52→20:58)
[2023-07-03] MEDS: Atorvastatin Calcium 20 MG TAB PO SCH (08:52)
[2023-07-03] MEDS: Micafungin 100 MG in Sodium Chloride 0.9% 100 ML IVPB SCH (10:04)
[2023-07-03] MEDS: HumaLOG 300 UNITS/3 ML VIAL SC PRN ×2 (10:53→16:17)
[2023-07-03] MEDS: LevoFLOXacin 750 mg/D5W 750 MG in Premix Bag 1 BAG IVPB SCH (18:17)
[2023-07-03] MEDS ORDERED: Propofol 1,000 MG/100 ML VIAL IV ONE (22:27)
[2023-07-03] MEDS ORDERED: Lorazepam 2 MG/ML VIAL SLOW IVP PRN (22:45)
[2023-07-03] MEDS ORDERED: Fentanyl CADD 100 ML IV SCH (22:45)
[2023-07-03] MEDS ORDERED: Propofol 1,000 MG/100 ML VIAL IV PRN (22:45)
[2023-07-03] MEDS ORDERED: Propofol BOLUS 1,000 MG/100 ML VIAL IV PRN (22:45)
[2023-07-03] MEDS ORDERED: Morphine 2 MG/ML VIAL SLOW IVP PRN (22:45)
[2023-07-03] MEDS ORDERED: DISCONTINUE PREVIOUS NARCOTIC PAIN MEDICATIONS AND BENZODIAZEPINES FS SCH (22:45)
[2023-07-03] MEDS ORDERED: Fentanyl BOLUS 250 ML IVPB PRN (22:45)
[2023-07-03 22:54] LABS: Actual Bicarbonate (HCO3a) 22.5 mEq/L (22-28); CO2 Tension 41.7 mmHg (35.0-45.0); Calcium, Ionized (arterial) 1.11 mmol/L (1.12-1.30); Carboxyhemoglobin (COHb) 0.2 gm% (0.0-3.0); Hematocrit-ABG 28 % (42.0-52.0); Hemoglobin (Hb) 9.6 g/dL (14.0-18.0); pH, Arterial 7.349 (7.35-7.45)
[2023-07-03 22:56] LABS: ALV-art Gradient 127.425 mmHg (0-20); Puncture Site RRA
[2023-07-04 04:31] LABS: #Monocytes 0.2 thou/uL (0.11-0.59); #Neutrophils 4.9 thou/uL (1.40-6.50); %Basophils 0.2 % (0.0-1.0); %Lymphocytes 14.8 % (21.0-51.0); %Monocytes 3.3 % (0.0-10.0); %Neutrophils 79.7 % (42.0-75.0); Hematocrit 25.7 % (42.0-52.0); Hemoglobin 7.6 g/dL (14.0-18.0); Mean Corpuscular HGB CONC 29.6 g/dL (32.0-36.0); Mean Corpuscular Hemoglobin 28.6 pg (27.0-31.0); Mean Corpuscular Volume 96.6 fl (78.0-98.0); Mean Platelet Volume 9.7 fL (7.4-10.4); RBC Distribution Width 15.5 % (11.5-14.5); Red Blood Cell (RBC) Count 2.66 mill/uL (4.70-6.10); White Blood Cell (WBC) Count 6.1 10x3/uL (4.8-10.8)
[2023-07-04 04:32] LABS: Platelet Count 86 10x3/uL (130-400)
[2023-07-04 04:33] LABS: Manual Diff?? YES
[2023-07-04 04:54] LABS: Anion Gap 12 mmol/L (10-20); BUN (Urea Nitrogen) 24 mg/dL (8.4-25.7); Calc. Creatinine Clearance 161 mL/min (70-130); Calcium 8.1 mg/dL (7.8-10.44); Carbon Dioxide 26 mmol/L (22-29); Chloride 107 mmol/L (98-107); Estimated GFR 114; Glucose 218 mg/dL (70-105); Sodium 141 mmol/L (136-145)
[2023-07-04] MEDS: methylPREDNISolone Sod Succ 40 MG VIAL IVP SCH ×4 (05:42→22:49)
[2023-07-04] MEDS: Ipratropium/Albuterol 3 ML NEB NEB SCH ×4 (06:57→18:24)
[2023-07-04 07:01] LABS: Anisocytosis MODERATE=16-30 cells HPF (0-5); Band 23 % (5-11); Burr Cells SLIGHT = 2-5 cells HPF (0-1); CellaVision Operator ID lab.sh2; Hypochromia SLIGHT = 6-15 cells HPF (0-5); Lymphocytes 6 % (21-51); Macrocytosis MODERATE=16-30 cells HPF (0-5); Monocytes 2 % (0-10); Neutrophil 69 % (42-75); Nucleated RBC (Manual Ct) 1 % (0); Ovalocytes SLIGHT = 2-5 cells HPF (0-1); Platelet Adequacy Comment Significant decrease; Poikilocytosis SLIGHT = 6-15 cells HPF (0-5); Polychromasia MODERATE = 3-4 cells HPF (0-2); Smudge Cells 15.2 %; Total Cell Count 99
[2023-07-04] MEDS: Vancomycin 1 GM in Premix Bag 1 BAG IVPB SCH (08:29)
[2023-07-04] MEDS: Micafungin 100 MG in Sodium Chloride 0.9% 100 ML IVPB SCH (09:42)
[2023-07-04] MEDS: Atorvastatin Calcium 20 MG TAB PO SCH (09:42)
[2023-07-04] MEDS: Famotidine/PF 20 mg/2ml Vial SLOW IVP SCH (09:43)
[2023-07-04] MEDS: HumaLOG 300 UNITS/3 ML VIAL SC PRN ×3 (09:59→22:48)
[2023-07-04] MEDS ORDERED: Lansoprazole 15 MG/5 ML (BATCHED)UDCUP PER TUBE SCH (10:00)
[2023-07-04] MEDS: LevoFLOXacin 750 mg/D5W 750 MG in Premix Bag 1 BAG IVPB SCH (17:23)
[2023-07-04] MEDS ORDERED: Dexmedetomidine In 0.9 % NaCl 100 ML IVPB SCH (20:00)
[2023-07-05] MEDS: methylPREDNISolone Sod Succ 40 MG VIAL IVP SCH ×4 (05:08→21:29)
[2023-07-05] MEDS: HumaLOG 300 UNITS/3 ML VIAL SC PRN ×4 (05:09→21:29)
[2023-07-05 05:26] LABS: #Monocytes 0.2 thou/uL (0.11-0.59); #Neutrophils 2.7 thou/uL (1.40-6.50); %Lymphocytes 17.6 % (21.0-51.0); %Monocytes 4.5 % (0.0-10.0); %Neutrophils 76.8 % (42.0-75.0); Hematocrit 26.7 % (42.0-52.0); Hemoglobin 7.8 g/dL (14.0-18.0); Mean Corpuscular HGB CONC 29.2 g/dL (32.0-36.0); Mean Corpuscular Hemoglobin 28.2 pg (27.0-31.0); Mean Corpuscular Volume 96.4 fl (78.0-98.0); Mean Platelet Volume 8.6 fL (7.4-10.4); Platelet Count 94 10x3/uL (130-400); RBC Distribution Width 15.5 % (11.5-14.5); Red Blood Cell (RBC) Count 2.77 mill/uL (4.70-6.10); White Blood Cell (WBC) Count 3.5 10x3/uL (4.8-10.8)
[2023-07-05 05:47] LABS: Anion Gap 9 mmol/L (10-20); BUN (Urea Nitrogen) 26 mg/dL (8.4-25.7); Calc. Creatinine Clearance 143 mL/min (70-130); Calcium 8.1 mg/dL (7.8-10.44); Carbon Dioxide 29 mmol/L (22-29); Chloride 106 mmol/L (98-107); Estimated GFR 108; Glucose 256 mg/dL (70-105); Potassium 4.2 mmol/L (3.5-5.1); Sodium 140 mmol/L (136-145)
[2023-07-05] MEDS: Ipratropium/Albuterol 3 ML NEB NEB SCH ×4 (06:24→18:44)
[2023-07-05] MEDS: Micafungin 100 MG in Sodium Chloride 0.9% 100 ML IVPB SCH (09:04)
[2023-07-05] MEDS: Lansoprazole 15 MG/5 ML (BATCHED)UDCUP PER TUBE SCH (09:04)
[2023-07-05] MEDS: Atorvastatin Calcium 20 MG TAB PO SCH (09:04)
[2023-07-05] MEDS ORDERED: Insulin Glargine 30 UNITS/0.3 ML VIAL SC SCH (10:03)
[2023-07-05] MEDS: Carvedilol 6.25 MG TAB PO SCH (16:14)
[2023-07-05] MEDS: LevoFLOXacin 750 mg/D5W 750 MG in Premix Bag 1 BAG IVPB SCH (17:13)
[2023-07-05] MEDS: ALPRAZolam 0.5 MG TAB PER TUBE PRN (21:29)
[2023-07-05] MEDS: Saccharomyces boulardii 250 MG CAP PER TUBE SCH (21:29)
[2023-07-06] MEDS: HumaLOG 300 UNITS/3 ML VIAL SC PRN ×3 (04:30→21:08)
[2023-07-06 05:02] LABS: #Monocytes 0.2 thou/uL (0.11-0.59); #Neutrophils 2.1 thou/uL (1.40-6.50); %Lymphocytes 16.2 % (21.0-51.0); %Monocytes 5.9 % (0.0-10.0); %Neutrophils 75.7 % (42.0-75.0); Hematocrit 27.7 % (42.0-52.0); Mean Corpuscular HGB CONC 28.9 g/dL (32.0-36.0); Mean Corpuscular Hemoglobin 28.2 pg (27.0-31.0); Mean Corpuscular Volume 97.5 fl (78.0-98.0); Mean Platelet Volume 11.1 fL (7.4-10.4); Platelet Count 95 10x3/uL (130-400); RBC Distribution Width 15.6 % (11.5-14.5); Red Blood Cell (RBC) Count 2.84 mill/uL (4.70-6.10); White Blood Cell (WBC) Count 2.7 10x3/uL (4.8-10.8)
[2023-07-06 05:08] LABS: Hemoglobin A1c 6.4 % (4.0-6.0)
[2023-07-06] MEDS: methylPREDNISolone Sod Succ 40 MG VIAL IVP SCH ×3 (05:20→21:07)
[2023-07-06 05:25] LABS: Anion Gap 7 mmol/L (10-20); BUN (Urea Nitrogen) 22 mg/dL (8.4-25.7); Calc. Creatinine Clearance 141 mL/min (70-130); Calcium 7.6 mg/dL (7.8-10.44); Carbon Dioxide 32 mmol/L (22-29); Chloride 110 mmol/L (98-107); Estimated GFR 108; Glucose 296 mg/dL (70-105); Potassium 3.7 mmol/L (3.5-5.1); Sodium 145 mmol/L (136-145)
[2023-07-06] MEDS: Ipratropium/Albuterol 3 ML NEB NEB SCH ×4 (07:05→18:42)
[2023-07-06 07:42] LABS: CellaVision Operator ID LAB.GE; Platelet Adequacy Comment Platelets Decreased; Polychromasia SLIGHT = 2-3 cells HPF (0-2)
[2023-07-06] MEDS: Saccharomyces boulardii 250 MG CAP PER TUBE SCH ×2 (08:15→21:08)
[2023-07-06] MEDS: Atorvastatin Calcium 20 MG TAB PO SCH (08:15)
[2023-07-06] MEDS: Carvedilol 6.25 MG TAB PO SCH ×2 (08:15→16:59)
[2023-07-06] MEDS: Micafungin 100 MG in Sodium Chloride 0.9% 100 ML IVPB SCH (08:16)
[2023-07-06] MEDS: Lansoprazole 15 MG/5 ML (BATCHED)UDCUP PER TUBE SCH (08:25)
[2023-07-06] MEDS ORDERED: Insulin Glargine 30 UNITS/0.3 ML VIAL SC SCH (09:00)
[2023-07-06] MEDS: ALPRAZolam 0.5 MG TAB PER TUBE PRN (16:59)
[2023-07-06] MEDS: LevoFLOXacin 750 mg/D5W 750 MG in Premix Bag 1 BAG IVPB SCH (17:00)
[2023-07-06] MEDS: Insulin Glargine 30 UNITS/0.3 ML VIAL SC SCH (21:08)
[2023-07-07 05:04] LABS: #Monocytes 0.3 thou/uL (0.11-0.59); #Neutrophils 4.3 thou/uL (1.40-6.50); %Basophils 0.2 % (0.0-1.0); %Lymphocytes 10.1 % (21.0-51.0); %Monocytes 5.9 % (0.0-10.0); %Neutrophils 79.9 % (42.0-75.0); Hematocrit 33.5 % (42.0-52.0); Hemoglobin 9.3 g/dL (14.0-18.0); Mean Corpuscular HGB CONC 27.8 g/dL (32.0-36.0); Mean Corpuscular Hemoglobin 27.5 pg (27.0-31.0); Mean Corpuscular Volume 99.1 fl (78.0-98.0); Mean Platelet Volume 11.2 fL (7.4-10.4); Platelet Count 115 10x3/uL (130-400); RBC Distribution Width 15.5 % (11.5-14.5); Red Blood Cell (RBC) Count 3.38 mill/uL (4.70-6.10); White Blood Cell (WBC) Count 5.4 10x3/uL (4.8-10.8)
[2023-07-07] MEDS: methylPREDNISolone Sod Succ 40 MG VIAL IVP SCH ×2 (05:30→20:39)
[2023-07-07 05:34] LABS: BUN (Urea Nitrogen) 22 mg/dL (8.4-25.7); Calc. Creatinine Clearance 161 mL/min (70-130); Calcium 8.3 mg/dL (7.8-10.44); Estimated GFR 112; Glucose 172 mg/dL (70-105)
[2023-07-07 05:36] LABS: Carbon Dioxide Greater than 37 mmol/L (22-29); Chloride 109 mmol/L (98-107); Potassium 3.6 mmol/L (3.5-5.1); Sodium 150 mmol/L (136-145)
[2023-07-07] MEDS: Ipratropium/Albuterol 3 ML NEB NEB SCH ×4 (07:18→18:31)
[2023-07-07] MEDS: Carvedilol 6.25 MG TAB PO SCH ×3 (07:43→17:50)
[2023-07-07] MEDS: Lansoprazole 15 MG/5 ML (BATCHED)UDCUP PER TUBE SCH (08:13)
[2023-07-07] MEDS: Saccharomyces boulardii 250 MG CAP PER TUBE SCH ×2 (08:14→20:39)
[2023-07-07] MEDS: Atorvastatin Calcium 20 MG TAB PO SCH (08:14)
[2023-07-07] MEDS: Insulin Glargine 30 UNITS/0.3 ML VIAL SC SCH ×2 (08:14→20:40)
[2023-07-07] MEDS: Micafungin 100 MG in Sodium Chloride 0.9% 100 ML IVPB SCH (08:14)
[2023-07-07] MEDS: HumaLOG 300 UNITS/3 ML VIAL SC PRN ×2 (10:56→17:09)
[2023-07-07] MEDS: LevoFLOXacin 750 mg/D5W 750 MG in Premix Bag 1 BAG IVPB SCH (17:01)
[2023-07-07] MEDS: ALPRAZolam 0.5 MG TAB PER TUBE PRN (20:39)
[2023-07-08 04:28] LABS: Hematocrit 30.2 % (42.0-52.0); Hemoglobin 8.6 g/dL (14.0-18.0); Mean Corpuscular HGB CONC 28.5 g/dL (32.0-36.0); Mean Corpuscular Hemoglobin 27.7 pg (27.0-31.0); Mean Corpuscular Volume 97.1 fl (78.0-98.0); Mean Platelet Volume 9.3 fL (7.4-10.4); RBC Distribution Width 15.7 % (11.5-14.5); Red Blood Cell (RBC) Count 3.11 mill/uL (4.70-6.10)
[2023-07-08 04:34] LABS: Manual Diff?? YES; Platelet Count 86 10x3/uL (130-400)
[2023-07-08 04:35] LABS: Delete Auto Diff?? YES
[2023-07-08 04:49] LABS: BUN (Urea Nitrogen) 22 mg/dL (8.4-25.7); Calc. Creatinine Clearance 165 mL/min (70-130); Calcium 8.2 mg/dL (7.8-10.44); Estimated GFR 113; Glucose 112 mg/dL (70-105)
[2023-07-08 04:56] LABS: Anisocytosis MODERATE=16-30 cells HPF (0-5); Band 2 % (5-11); CellaVision Operator ID lab.sh2; Lymphocytes 22 % (21-51); Macrocytosis SLIGHT = 6-15 cells HPF (0-5); Monocytes 2 % (0-10); Neutrophil 74 % (42-75); Ovalocytes MODERATE= 6-15 cells HPF (0-1); Platelet Adequacy Comment Platelets Decreased; Polychromasia SLIGHT = 2-3 cells HPF (0-2); Smudge Cells 13.1 %; Tear Drops SLIGHT = 2-5 cells HPF (0-1); Total Cell Count 99
[2023-07-08 04:57] LABS: Anion Gap 11 mmol/L (10-20); Carbon Dioxide 36 mmol/L (22-29); Chloride 106 mmol/L (98-107); Potassium 3.4 mmol/L (3.5-5.1); Sodium 150 mmol/L (136-145)
[2023-07-08] MEDS: Ipratropium/Albuterol 3 ML NEB NEB SCH ×4 (07:20→18:42)
[2023-07-08] MEDS ORDERED: Potassium Chloride 20 MEQ TAB PO SCH (08:00)
[2023-07-08] MEDS: Atorvastatin Calcium 20 MG TAB PO SCH (08:29)
[2023-07-08] MEDS: Saccharomyces boulardii 250 MG CAP PER TUBE SCH ×2 (08:29→20:10)
[2023-07-08] MEDS: Carvedilol 6.25 MG TAB PO SCH ×2 (08:29→16:08)
[2023-07-08] MEDS: Lansoprazole 15 MG/5 ML (BATCHED)UDCUP PER TUBE SCH (08:34)
[2023-07-08] MEDS: methylPREDNISolone Sod Succ 40 MG VIAL IVP SCH ×2 (09:59→20:10)
[2023-07-08] MEDS: Micafungin 100 MG in Sodium Chloride 0.9% 100 ML IVPB SCH (09:59)
[2023-07-08] MEDS: Insulin Glargine 30 UNITS/0.3 ML VIAL SC SCH ×2 (10:13→22:01)
[2023-07-08] MEDS ORDERED: hydrOXYzine 25 MG TAB PO PRN (10:56)
[2023-07-08] MEDS: HumaLOG 300 UNITS/3 ML VIAL SC PRN (16:13)
[2023-07-08] MEDS: LevoFLOXacin 750 mg/D5W 750 MG in Premix Bag 1 BAG IVPB SCH (17:28)
[2023-07-09 04:41] LABS: #Monocytes 0.2 thou/uL (0.11-0.59); #Neutrophils 2.5 thou/uL (1.40-6.50); %Basophils 0.3 % (0.0-1.0); %Lymphocytes 19.8 % (21.0-51.0); %Monocytes 4.9 % (0.0-10.0); %Neutrophils 70.1 % (42.0-75.0); Hematocrit 32.2 % (42.0-52.0); Hemoglobin 9.4 g/dL (14.0-18.0); Mean Corpuscular HGB CONC 29.2 g/dL (32.0-36.0); Mean Corpuscular Volume 95.8 fl (78.0-98.0); Mean Platelet Volume 9.6 fL (7.4-10.4); RBC Distribution Width 15.9 % (11.5-14.5); Red Blood Cell (RBC) Count 3.36 mill/uL (4.70-6.10); White Blood Cell (WBC) Count 3.5 10x3/uL (4.8-10.8)
[2023-07-09 04:57] LABS: Platelet Count 84 10x3/uL (130-400)
[2023-07-09 05:12] LABS: BUN (Urea Nitrogen) 21 mg/dL (8.4-25.7); Calc. Creatinine Clearance 182 mL/min (70-130); Calcium 8.2 mg/dL (7.8-10.44); Estimated GFR 116; Glucose 167 mg/dL (70-105)
[2023-07-09 05:20] LABS: Anion Gap 14 mmol/L (10-20); Carbon Dioxide 34 mmol/L (22-29); Chloride 98 mmol/L (98-107); Potassium 3.6 mmol/L (3.5-5.1); Sodium 142 mmol/L (136-145)
[2023-07-09] MEDS: Ipratropium/Albuterol 3 ML NEB NEB SCH ×4 (07:31→18:42)
[2023-07-09] MEDS: Carvedilol 6.25 MG TAB PO SCH ×2 (07:56→16:44)
[2023-07-09] MEDS: Atorvastatin Calcium 20 MG TAB PO SCH (07:57)
[2023-07-09] MEDS: Saccharomyces boulardii 250 MG CAP PER TUBE SCH ×2 (07:57→21:09)
[2023-07-09] MEDS: Insulin Glargine 30 UNITS/0.3 ML VIAL SC SCH ×2 (07:57→21:09)
[2023-07-09] MEDS: Lansoprazole 15 MG/5 ML (BATCHED)UDCUP PER TUBE SCH (07:57)
[2023-07-09] MEDS: methylPREDNISolone Sod Succ 40 MG VIAL IVP SCH ×2 (07:57→21:09)
[2023-07-09 09:36] VITALS: BMI 36.1
[2023-07-09] MEDS: Micafungin 100 MG in Sodium Chloride 0.9% 100 ML IVPB SCH (12:05)
[2023-07-09] MEDS: HumaLOG 300 UNITS/3 ML VIAL SC PRN (16:44)
[2023-07-09] MEDS: LevoFLOXacin 750 mg/D5W 750 MG in Premix Bag 1 BAG IVPB SCH (17:06)
[2023-07-10 04:09] LABS: Hematocrit 33.4 % (42.0-52.0); Hemoglobin 9.8 g/dL (14.0-18.0); Mean Corpuscular HGB CONC 29.3 g/dL (32.0-36.0); Mean Corpuscular Hemoglobin 27.8 pg (27.0-31.0); Mean Corpuscular Volume 94.9 fl (78.0-98.0); Mean Platelet Volume 9.9 fL (7.4-10.4); Platelet Count 100 10x3/uL (130-400); RBC Distribution Width 15.6 % (11.5-14.5); Red Blood Cell (RBC) Count 3.52 mill/uL (4.70-6.10); White Blood Cell (WBC) Count 5.4 10x3/uL (4.8-10.8)
[2023-07-10 04:30] LABS: Manual Diff?? YES
[2023-07-10 04:31] LABS: Delete Auto Diff?? YES
[2023-07-10 04:32] LABS: BUN (Urea Nitrogen) 21 mg/dL (8.4-25.7); Calc. Creatinine Clearance 179 mL/min (70-130); Calcium 8.3 mg/dL (7.8-10.44); Estimated GFR 116; Glucose 91 mg/dL (70-105)
[2023-07-10 04:41] LABS: Anion Gap 12 mmol/L (10-20); Carbon Dioxide 37 mmol/L (22-29); Chloride 95 mmol/L (98-107); Potassium 3.8 mmol/L (3.5-5.1); Sodium 140 mmol/L (136-145)
[2023-07-10 05:19] LABS: Anisocytosis SLIGHT = 6-15 cells HPF (0-5); Band 16 % (5-11); CellaVision Operator ID LAB.JMM; Elliptocytes SLIGHT = 2-5 cells HPF (0-1); Lymphocytes 8 % (21-51); Metamyelocyte 1 % (0-0); Monocytes 1 % (0-10); Myelocyte 1 % (0-0); Neutrophil 73 % (42-75); Nucleated RBC (Manual Ct) 1 % (0); Ovalocytes SLIGHT = 2-5 cells HPF (0-1); Platelet Adequacy Comment Platelets Decreased; Polychromasia SLIGHT = 2-3 cells HPF (0-2); Tear Drops SLIGHT = 2-5 cells HPF (0-1); Total Cell Count 100
[2023-07-10] MEDS: Ipratropium/Albuterol 3 ML NEB NEB SCH ×4 (07:29→18:07)
[2023-07-10] MEDS: Carvedilol 6.25 MG TAB PO SCH ×2 (07:56→17:16)
[2023-07-10] MEDS: methylPREDNISolone Sod Succ 40 MG VIAL IVP SCH (07:56)
[2023-07-10] MEDS: Atorvastatin Calcium 20 MG TAB PO SCH (07:57)
[2023-07-10] MEDS: Saccharomyces boulardii 250 MG CAP PER TUBE SCH ×2 (07:57→21:17)
[2023-07-10] MEDS: Lansoprazole 15 MG/5 ML (BATCHED)UDCUP PER TUBE SCH (08:08)
[2023-07-10] MEDS: Insulin Glargine 30 UNITS/0.3 ML VIAL SC SCH (09:24)
[2023-07-10] MEDS: HumaLOG 300 UNITS/3 ML VIAL SC PRN (18:00)
[2023-07-11 05:45] LABS: #Eosinphils 0.1 thou/uL (0.0-0.7); #Monocytes 0.3 thou/uL (0.11-0.59); #Neutrophils 3.1 thou/uL (1.40-6.50); %Basophils 0.2 % (0.0-1.0); %Eosinophils 0.9 % (0.0-10.0); %Lymphocytes 33.2 % (21.0-51.0); %Neutrophils 55.5 % (42.0-75.0); Hematocrit 32.4 % (42.0-52.0); Hemoglobin 9.9 g/dL (14.0-18.0); Mean Corpuscular HGB CONC 30.6 g/dL (32.0-36.0); Mean Corpuscular Hemoglobin 28.1 pg (27.0-31.0); Mean Platelet Volume 9.1 fL (7.4-10.4); RBC Distribution Width 15.8 % (11.5-14.5); Red Blood Cell (RBC) Count 3.52 mill/uL (4.70-6.10); White Blood Cell (WBC) Count 5.7 10x3/uL (4.8-10.8)
[2023-07-11 05:46] LABS: Platelet Count 91 10x3/uL (130-400)
[2023-07-11 05:59] LABS: BUN (Urea Nitrogen) 28 mg/dL (8.4-25.7); Calc. Creatinine Clearance 159 mL/min (70-130); Calcium 8.1 mg/dL (7.8-10.44); Estimated GFR 112; Glucose 109 mg/dL (70-105)
[2023-07-11 06:08] LABS: Anion Gap 12 mmol/L (10-20); Carbon Dioxide 36 mmol/L (22-29); Chloride 91 mmol/L (98-107); Potassium 3.4 mmol/L (3.5-5.1); Sodium 136 mmol/L (136-145)
[2023-07-11] MEDS: Ipratropium/Albuterol 3 ML NEB NEB SCH ×4 (07:15→18:20)
[2023-07-11] MEDS ORDERED: Potassium Chloride 20 MEQ TAB PO SCH (08:00)
[2023-07-11] MEDS: methylPREDNISolone 4 mg Tablet PO SCH (08:52)
[2023-07-11] MEDS: Atorvastatin Calcium 20 MG TAB PO SCH (08:52)
[2023-07-11] MEDS: Saccharomyces boulardii 250 MG CAP PER TUBE SCH ×2 (08:52→20:33)
[2023-07-11] MEDS: Lansoprazole 15 MG/5 ML (BATCHED)UDCUP PER TUBE SCH (08:52)
[2023-07-11] MEDS: Carvedilol 6.25 MG TAB PO SCH ×2 (08:52→17:16)
[2023-07-11] MEDS: HumaLOG 300 UNITS/3 ML VIAL SC PRN ×2 (17:15→20:33)
[2023-07-12 04:06] LABS: #Monocytes 0.4 thou/uL (0.11-0.59); #Neutrophils 4.7 thou/uL (1.40-6.50); %Basophils 0.1 % (0.0-1.0); %Eosinophils 0.1 % (0.0-10.0); %Lymphocytes 20.3 % (21.0-51.0); %Neutrophils 69.5 % (42.0-75.0); Hematocrit 31.8 % (42.0-52.0); Hemoglobin 9.7 g/dL (14.0-18.0); Mean Corpuscular HGB CONC 30.5 g/dL (32.0-36.0); Mean Corpuscular Hemoglobin 27.6 pg (27.0-31.0); Mean Corpuscular Volume 90.6 fl (78.0-98.0); Mean Platelet Volume 8.5 fL (7.4-10.4); RBC Distribution Width 15.5 % (11.5-14.5); Red Blood Cell (RBC) Count 3.51 mill/uL (4.70-6.10); White Blood Cell (WBC) Count 6.8 10x3/uL (4.8-10.8)
[2023-07-12 04:13] LABS: Platelet Count 94 10x3/uL (130-400)
[2023-07-12 04:29] LABS: BUN (Urea Nitrogen) 18 mg/dL (8.4-25.7); Calc. Creatinine Clearance 167 mL/min (70-130); Calcium 8.1 mg/dL (7.8-10.44); Estimated GFR 115; Glucose 130 mg/dL (70-105)
[2023-07-12 04:38] LABS: Carbon Dioxide 34 mmol/L (22-29)
[2023-07-12 04:58] LABS: Chloride 90 mmol/L (98-107); Potassium 3.8 mmol/L (3.5-5.1); Sodium 136 mmol/L (136-145)
[2023-07-12 05:17] LABS: Anion Gap 16 mmol/L (10-20)
[2023-07-12] MEDS: Ipratropium/Albuterol 3 ML NEB NEB SCH ×3 (07:00→13:26)
[2023-07-12] MEDS: methylPREDNISolone 4 mg Tablet PO SCH (09:03)
[2023-07-12] MEDS: Saccharomyces boulardii 250 MG CAP PER TUBE SCH (09:03)
[2023-07-12] MEDS: Atorvastatin Calcium 20 MG TAB PO SCH (09:03)
[2023-07-12] MEDS: Lansoprazole 15 MG/5 ML (BATCHED)UDCUP PER TUBE SCH (09:03)
[2023-07-12] MEDS: Carvedilol 6.25 MG TAB PO SCH ×2 (09:03→16:56)
[2023-07-12] MEDS: HumaLOG 300 UNITS/3 ML VIAL SC PRN ×2 (12:03→16:56)
[2023-07-12 16:28] VITALS: TEMP 96.2
[2023-07-12 16:58] VITALS: BP 119/75
== END 2023-07-12 17:52 | disposition home or self-care (01) | DRG 870 ==
LOC: ERS 21:11 → CCU 21:37 → IMCU/EMU 07-10 16:10
PROVIDERS: ADMIT Hospitalist; ATTEND Family Medicine
PROC: 5A1955Z Respiratory Ventilation, Greater than 96 Consecutive Hours (ICD-10-PCS; principal; 2023-07-01)
PROC: 3E03329 Introduction of Other Anti-infective into Peripheral Vein, Percutaneous Approach (ICD-10-PCS; 2023-07-01)
PROC: 3E033XZ Introduction of Vasopressor into Peripheral Vein, Percutaneous Approach (ICD-10-PCS; 2023-07-01)
PROC: 4A033R1 Measurement of Arterial Saturation, Peripheral, Percutaneous Approach (ICD-10-PCS; 2023-07-02)
DX: A41.9 Sepsis, unspecified organism (principal); G93.41 Metabolic encephalopathy; J96.21 Acute and chronic respiratory failure with hypoxia; R65.21 Severe sepsis with septic shock; J18.9 Pneumonia, unspecified organism; C96.6 Unifocal Langerhans-cell histiocytosis; E87.0 Hyperosmolality and hypernatremia; E87.29 Other acidosis; E87.1 Hypo-osmolality and hyponatremia; E66.2 Morbid (severe) obesity with alveolar hypoventilation; E11.9 Type 2 diabetes mellitus without complications; L89.151 Pressure ulcer of sacral region, stage 1; D69.6 Thrombocytopenia, unspecified; Z93.0 Tracheostomy status; Z79.82 Long term (current) use of aspirin; Z79.4 Long term (current) use of insulin; Z79.899 Other long term (current) drug therapy; Z68.34 Body mass index [BMI] 34.0-34.9, adult; D63.8 Anemia in other chronic diseases classified elsewhere; Z79.52 Long term (current) use of systemic steroids; Z93.1 Gastrostomy status; E78.00 Pure hypercholesterolemia, unspecified; Z93.3 Colostomy status; Z78.1 Physical restraint status; Z20.822 Contact with and (suspected) exposure to COVID-19; E87.6 Hypokalemia
CPT/HCPCS: 36415; 36416; 36600; 51702; 70450; 71045; 71275; 80048; 80053; 80202; 82805; 83036; 83605; 84145; 85025; 87086; 87449; 87899; 94003; 94640; 94760; 96365; 97139; J0692; J1650; J1815; J1956; J2060; J2248; J2272; J2405; J2597; J2704; J2920; J3370; J3370-JW; J3480; J3490; J7070; J7509; J7620; Q9967; S0028

== ENCOUNTER 2023-08-01 01:50 | Inpatient (IN) | payer MEDICAID, SELFPAY ==
[2023-08-01] MEDS ORDERED: Ipratropium/Albuterol 3 ML NEB ONE (02:22)
[2023-08-01] MEDS ORDERED: Vancomycin (BATCH) 1.5 GM in Premix 1 BAG IVPB SCH (02:45)
[2023-08-01] MEDS ORDERED: Ondansetron PF 4 MG/2 ML Vial IVP PRN (02:49)
[2023-08-01] MEDS ORDERED: Acetaminophen 325 MG TAB PO PRN (02:49)
[2023-08-01] MEDS ORDERED: Ipratropium/Albuterol 3 ML NEB EZPAP PRN ×2 (02:50→06:05)
[2023-08-01] MEDS ORDERED: Dextrose 50% Abboject 50 ML SYRINGE SLOW IVP PRN (03:17)
[2023-08-01] MEDS ORDERED: Dextrose 5% in Water 1,000 ML IV PRN (03:17)
[2023-08-01] MEDS ORDERED: Glucagon 1 MG/ML KIT IM PRN (03:17)
[2023-08-01] MEDS ORDERED: methylPREDNISolone Sod Succ 40 MG VIAL IVP SCH (04:00)
[2023-08-01 05:24] LABS: Actual Bicarbonate (HCO3a) 26.4 mEq/L (22-28); Analyzer IN Cardio ER; Base Excess (BEa) -0.4 mEq/L (-2.0 to +3.0); CO2 Tension 53.2 mmHg (35.0-45.0); Calcium, Ionized (arterial) 1.15 mmol/L (1.12-1.30); Carboxyhemoglobin (COHb) 0.1 gm% (0.0-3.0); Hematocrit-ABG 35 % (42.0-52.0); Hemoglobin (Hb) 11.9 g/dL (14.0-18.0); Potassium - ABG Lab 3.07 mmol/L (3.70-5.30); pH, Arterial 7.314 (7.35-7.45)
[2023-08-01 05:26] LABS: Hematocrit 38.6 % (42.0-52.0); Hemoglobin 11.2 g/dL (14.0-18.0); Mean Corpuscular Hemoglobin 27.9 pg (27.0-31.0); Mean Corpuscular Volume 96.3 fl (78.0-98.0); Mean Platelet Volume 8.3 fL (7.4-10.4); Platelet Count 152 10x3/uL (130-400); RBC Distribution Width 15.7 % (11.5-14.5); Red Blood Cell (RBC) Count 4.01 mill/uL (4.70-6.10); White Blood Cell (WBC) Count 10.1 10x3/uL (4.8-10.8)
[2023-08-01 05:33] LABS: Puncture Site RRA
[2023-08-01 05:36] LABS: Delete Auto Diff?? YES
[2023-08-01] MEDS ORDERED: Electrolyte Replacement Protocol 1 EACH FS PRN (06:27)
[2023-08-01] MEDS ORDERED: Acetylcysteine (MUCOMYST) 200 MG/ML (10 ML VIAL) NEB SCH (06:30)
[2023-08-01 06:45] LABS: Anion Gap 16 mmol/L (10-20); BUN (Urea Nitrogen) 11 mg/dL (8.4-25.7); Calc. Creatinine Clearance 0 mL/min (70-130); Calcium 8.9 mg/dL (7.8-10.44); Carbon Dioxide 25 mmol/L (22-29); Chloride 108 mmol/L (98-107); Estimated GFR 113; Glucose 85 mg/dL (70-105); Magnesium 1.7 mg/dL (1.6-2.6); Sodium 146 mmol/L (136-145)
[2023-08-01] MEDS: Sodium Chloride 0.9% 1,000 ML IV SCH ×4 (06:51→21:54)
[2023-08-01] MEDS ORDERED: Electrolyte Replacement Protocol FS PRN (07:00)
[2023-08-01] MEDS ORDERED: Potassium Chloride 20 MEQ in Premix 1 BAG IVPB SCH (07:00)
[2023-08-01] MEDS ORDERED: Magnesium 2 GM/50 ML(in water) 2 GM in Premix 1 BAG IVPB SCH (07:00)
[2023-08-01] MEDS: Ipratropium/Albuterol 3 ML NEB NEB SCH ×5 (07:09→22:30)
[2023-08-01] MEDS ORDERED: Sodium Chloride 0.9% 1,000 ML IV SCH ×2 (08:30→15:30)
[2023-08-01] MEDS ORDERED: Potassium Chloride 20 MEQ TAB PER TUBE SCH (08:30)
[2023-08-01] MEDS ORDERED: FLU VACC QS2023-24(6MOS UP)/PF 60 MCG/0.5 ML SYRINGE IM ONE (08:45)
[2023-08-01] MEDS: methylPREDNISolone Sod Succ 40 MG VIAL IVP SCH ×2 (08:49→16:30)
[2023-08-01] MEDS: Pantoprazole 40 MG VIAL IVP SCH (08:50)
[2023-08-01 09:15] LABS: Troponin I Less than 0.010 ng/mL (< 0.028)
[2023-08-01] MEDS ORDERED: Potassium Bicarbonate/Cit Ac 20 MEQ TAB PER TUBE SCH (09:30)
[2023-08-01] MEDS ORDERED: NOREPINEPHRINE 8 MG/250 ML-D5W 250 ML IVPB SCH (10:45)
[2023-08-01] MEDS ORDERED: Lorazepam 2 MG/ML VIAL ONE (11:49)
[2023-08-01] MEDS ORDERED: Lorazepam 2 MG/ML VIAL SLOW IVP SCH (12:00)
[2023-08-01] MEDS ORDERED: levETIRAcetam 500 MG/5 ML VIAL SLOW IVP SCH (12:15)
[2023-08-01] MEDS: Acetaminophen 650 MG/20.3 ML UDCUP PO PRN ×2 (13:04→18:32)
[2023-08-01] MEDS ORDERED: Vancomycin 1.25 GM in Sodium Chloride 0.9% 250 ML 250 ML IVPB SCH ×2 (15:15→20:00)
[2023-08-01] MEDS: Cefepime 2 GM in Sodium Chloride 0.9% 100 ML IVPB SCH (16:28)
[2023-08-01] MEDS: Vancomycin (BATCH) 1.25 GM in Premix 1 BAG IVPB SCH (17:59)
[2023-08-01] MEDS: Mometasone 200 MCG/Formoterol 5 MCG 120 PUFF INHALER INH SCH (18:36)
[2023-08-01] MEDS: levETIRAcetam 500 MG/5 ML VIAL SLOW IVP SCH (20:50)
[2023-08-01] MEDS: HumaLOG 300 UNITS/3 ML VIAL SC PRN (21:04)
[2023-08-02] MEDS: methylPREDNISolone Sod Succ 40 MG VIAL IVP SCH ×4 (00:20→23:12)
[2023-08-02] MEDS ORDERED: OLANZapine 10 MG VIAL IM SCH (02:15)
[2023-08-02] MEDS ORDERED: Sterile Water 10 ML VIAL FS SCH (02:30)
[2023-08-02] MEDS: Ipratropium/Albuterol 3 ML NEB NEB SCH ×6 (02:54→23:24)
[2023-08-02] MEDS: Cefepime 2 GM in Sodium Chloride 0.9% 100 ML IVPB SCH ×2 (03:46→15:23)
[2023-08-02 04:15] LABS: #Monocytes 0.2 thou/uL (0.11-0.59); #Neutrophils 4.9 thou/uL (1.40-6.50); %Basophils 0.3 % (0.0-1.0); %Lymphocytes 11.2 % (21.0-51.0); %Monocytes 3.5 % (0.0-10.0); %Neutrophils 79.9 % (42.0-75.0); Hemoglobin 8.7 g/dL (14.0-18.0); Mean Corpuscular HGB CONC 30.2 g/dL (32.0-36.0); Mean Corpuscular Hemoglobin 27.7 pg (27.0-31.0); Mean Platelet Volume 10.1 fL (7.4-10.4); Platelet Count 109 10x3/uL (130-400); Red Blood Cell (RBC) Count 3.14 mill/uL (4.70-6.10); White Blood Cell (WBC) Count 6.1 10x3/uL (4.8-10.8)
[2023-08-02 04:18] LABS: Hematocrit 28.8 % (42.0-52.0); Mean Corpuscular Volume 91.7 fl (78.0-98.0)
[2023-08-02 04:47] LABS: Anion Gap 15 mmol/L (10-20); BUN (Urea Nitrogen) 15 mg/dL (8.4-25.7); Calc. Creatinine Clearance 144 mL/min (70-130); Calcium 7.8 mg/dL (7.8-10.44); Carbon Dioxide 23 mmol/L (22-29); Chloride 114 mmol/L (98-107); Estimated GFR 110; Glucose 243 mg/dL (70-105); Magnesium 2.2 mg/dL (1.6-2.6); Potassium 3.3 mmol/L (3.5-5.1); Sodium 149 mmol/L (136-145)
[2023-08-02] MEDS: Vancomycin (BATCH) 1.25 GM in Premix 1 BAG IVPB SCH (05:16)
[2023-08-02] MEDS: HumaLOG 300 UNITS/3 ML VIAL SC PRN ×3 (05:58→15:52)
[2023-08-02] MEDS: Mometasone 200 MCG/Formoterol 5 MCG 120 PUFF INHALER INH SCH ×2 (06:42→18:26)
[2023-08-02 07:28] LABS: Actual Bicarbonate (HCO3a) 27.4 mEq/L (22-28); Base Excess (BEa) 2.2 mEq/L (-2.0 to +3.0); CO2 Tension 45.9 mmHg (35.0-45.0); Carboxyhemoglobin (COHb) 0.3 gm% (0.0-3.0); Hematocrit-ABG 25 % (42.0-52.0); Hemoglobin (Hb) 8.6 g/dL (14.0-18.0); O2 Tension (PaO2), arterial 86.8 mmHg (80.0-100.0); Potassium - ABG Lab 3.33 mmol/L (3.70-5.30); pH, Arterial 7.394 (7.35-7.45)
[2023-08-02 07:38] LABS: ALV-art Gradient 141.025 mmHg (0-20); Puncture Site LRA
[2023-08-02] MEDS ORDERED: Potassium Bicarbonate/Cit Ac 20 MEQ TAB PER TUBE SCH (08:00)
[2023-08-02] MEDS ORDERED: Empagliflozin 10 MG TAB PO SCH (09:00)
[2023-08-02] MEDS: Sodium Chloride 0.45% 1,000 ML IV SCH ×2 (09:00→18:29)
[2023-08-02] MEDS ORDERED: Alogliptin 25 MG TAB PO SCH (09:00)
[2023-08-02] MEDS: Atorvastatin Calcium 20 MG TAB PO SCH (09:36)
[2023-08-02] MEDS: Folic Acid 1 MG TAB PO SCH (09:36)
[2023-08-02] MEDS: Aspirin Chewable 81 MG TAB PO SCH (09:36)
[2023-08-02] MEDS: levETIRAcetam 500 MG/5 ML VIAL SLOW IVP SCH ×2 (09:37→20:38)
[2023-08-02] MEDS: Pantoprazole 40 MG VIAL IVP SCH (09:38)
[2023-08-02] MEDS: Insulin NPH Human Isophane 100 UNITS/ML (10 ML VIAL) SC SCH ×2 (10:00→20:38)
[2023-08-02 16:10] LABS: Vancomycin, Trough 26.1 ug/mL
[2023-08-02] MEDS ORDERED: Vancomycin (BATCH) 1.25 GM in Premix 1 BAG IVPB SCH (16:30)
[2023-08-03] MEDS: HumaLOG 300 UNITS/3 ML VIAL SC PRN ×5 (00:18→21:37)
[2023-08-03] MEDS: Ipratropium/Albuterol 3 ML NEB NEB SCH ×6 (03:06→22:17)
[2023-08-03] MEDS: Cefepime 2 GM in Sodium Chloride 0.9% 100 ML IVPB SCH ×2 (05:16→15:11)
[2023-08-03] MEDS: Sodium Chloride 0.45% 1,000 ML IV SCH ×2 (05:16→09:21)
[2023-08-03 05:19] LABS: Hematocrit 26.1 % (42.0-52.0); Hemoglobin 7.6 g/dL (14.0-18.0); Mean Corpuscular HGB CONC 29.1 g/dL (32.0-36.0); Mean Corpuscular Hemoglobin 28.3 pg (27.0-31.0); Mean Platelet Volume 9.8 fL (7.4-10.4); Platelet Count 102 10x3/uL (130-400); RBC Distribution Width 16.6 % (11.5-14.5); Red Blood Cell (RBC) Count 2.69 mill/uL (4.70-6.10); White Blood Cell (WBC) Count 6.2 10x3/uL (4.8-10.8)
[2023-08-03 05:23] LABS: Delete Auto Diff?? YES; Manual Diff?? YES
[2023-08-03 05:46] LABS: Vancomycin, Random 9.2 ug/mL (See Comment)
[2023-08-03 05:51] LABS: Anisocytosis MODERATE=16-30 cells HPF (0-5); Band 14 % (5-11); CellaVision Operator ID lab.sh2; Hypochromia SLIGHT = 6-15 cells HPF (0-5); Lymphocytes 5 % (21-51); Macrocytosis SLIGHT = 6-15 cells HPF (0-5); Monocytes 4 % (0-10); Neutrophil 77 % (42-75); Ovalocytes SLIGHT = 2-5 cells HPF (0-1); Platelet Adequacy Comment Platelets Decreased; Polychromasia SLIGHT = 2-3 cells HPF (0-2); Smudge Cells 14.9 %; Tear Drops SLIGHT = 2-5 cells HPF (0-1); Total Cell Count 101
[2023-08-03] MEDS: Mometasone 200 MCG/Formoterol 5 MCG 120 PUFF INHALER INH SCH ×2 (06:23→18:43)
[2023-08-03 06:27] LABS: Anion Gap 10 mmol/L (10-20); Calc. Creatinine Clearance 158 mL/min (70-130); Carbon Dioxide 29 mmol/L (22-29); Chloride 112 mmol/L (98-107); Estimated GFR 113; Glucose 293 mg/dL (70-105); Potassium 3.9 mmol/L (3.5-5.1); Sodium 147 mmol/L (136-145)
[2023-08-03 06:28] LABS: BUN (Urea Nitrogen) 23 mg/dL (8.4-25.7); Magnesium 2.4 mg/dL (1.6-2.6)
[2023-08-03] MEDS: Vancomycin 1 GM in Premix 1 BAG IVPB SCH ×2 (06:31→17:02)
[2023-08-03 06:38] LABS: Actual Bicarbonate (HCO3a) 24.6 mEq/L (22-28); Base Excess (BEa) -1.9 mEq/L (-2.0 to +3.0); CO2 Tension 50.6 mmHg (35.0-45.0); Calcium, Ionized (arterial) 1.18 mmol/L (1.12-1.30); Carboxyhemoglobin (COHb) 0.3 gm% (0.0-3.0); Hematocrit-ABG 27 % (42.0-52.0); Hemoglobin (Hb) 9.3 g/dL (14.0-18.0); O2 Tension (PaO2), arterial 84.2 mmHg (80.0-100.0); Potassium - ABG Lab 4.15 mmol/L (3.70-5.30); pH, Arterial 7.305 (7.35-7.45)
[2023-08-03 06:39] LABS: Puncture Site RRA
[2023-08-03] MEDS: Sodium Chloride 0.9% 1,000 ML IV SCH (07:04)
[2023-08-03] MEDS: Atorvastatin Calcium 20 MG TAB PO SCH (09:21)
[2023-08-03] MEDS: Aspirin Chewable 81 MG TAB PO SCH (09:21)
[2023-08-03] MEDS: Polyethylene Glycol 3350 17 GM Packet PER TUBE SCH (09:22)
[2023-08-03] MEDS: Senokot S 8.6-50 MG TAB PO SCH (09:22)
[2023-08-03] MEDS: Insulin NPH Human Isophane 100 UNITS/ML (10 ML VIAL) SC SCH ×2 (09:23→21:34)
[2023-08-03] MEDS: Folic Acid 1 MG TAB PO SCH (09:24)
[2023-08-03] MEDS: Pantoprazole 40 MG VIAL IVP SCH (09:25)
[2023-08-03] MEDS: methylPREDNISolone Sod Succ 40 MG VIAL IVP SCH ×2 (09:25→10:31)
[2023-08-03] MEDS: levETIRAcetam 500 MG/5 ML VIAL SLOW IVP SCH ×2 (09:26→21:27)
[2023-08-03 15:14] LABS: Anion Gap 10 mmol/L (10-20); BUN (Urea Nitrogen) 26 mg/dL (8.4-25.7); Calc. Creatinine Clearance 143 mL/min (70-130); Calcium 8.2 mg/dL (7.8-10.44); Carbon Dioxide 27 mmol/L (22-29); Chloride 111 mmol/L (98-107); Estimated GFR 109; Glucose 289 mg/dL (70-105); Potassium 3.7 mmol/L (3.5-5.1); Sodium 144 mmol/L (136-145)
[2023-08-04] MEDS: Sodium Chloride 0.45% 1,000 ML IV SCH (00:20)
[2023-08-04] MEDS: Ipratropium/Albuterol 3 ML NEB NEB SCH ×6 (03:09→22:56)
[2023-08-04] MEDS: Cefepime 2 GM in Sodium Chloride 0.9% 100 ML IVPB SCH ×2 (04:12→17:24)
[2023-08-04] MEDS: HumaLOG 300 UNITS/3 ML VIAL SC PRN ×2 (04:19→21:33)
[2023-08-04 04:35] LABS: Hematocrit 23.3 % (42.0-52.0); Hemoglobin 6.7 g/dL (14.0-18.0); Mean Corpuscular HGB CONC 28.8 g/dL (32.0-36.0); Mean Corpuscular Hemoglobin 27.5 pg (27.0-31.0); Mean Corpuscular Volume 95.5 fl (78.0-98.0); Mean Platelet Volume 9.3 fL (7.4-10.4); RBC Distribution Width 16.1 % (11.5-14.5); Red Blood Cell (RBC) Count 2.44 mill/uL (4.70-6.10)
[2023-08-04 04:36] LABS: Platelet Count 86 10x3/uL (130-400)
[2023-08-04 04:37] LABS: Delete Auto Diff?? YES; Manual Diff?? YES
[2023-08-04 04:55] LABS: Anion Gap 9 mmol/L (10-20); BUN (Urea Nitrogen) 27 mg/dL (8.4-25.7); Calc. Creatinine Clearance 171 mL/min (70-130); Carbon Dioxide 30 mmol/L (22-29); Chloride 110 mmol/L (98-107); Estimated GFR 115; Glucose 203 mg/dL (70-105); Potassium 3.8 mmol/L (3.5-5.1); Sodium 145 mmol/L (136-145)
[2023-08-04] MEDS: Vancomycin 1 GM in Premix 1 BAG IVPB SCH (05:02)
[2023-08-04 05:05] LABS: Anisocytosis SLIGHT = 6-15 cells HPF (0-5); Band 26 % (5-11); CellaVision Operator ID LAB.CLH1; Elliptocytes SLIGHT = 2-5 cells HPF (0-1); Hypochromia SLIGHT = 6-15 cells HPF (0-5); Lymphocytes 12 % (21-51); Monocytes 2 % (0-10); Myelocyte 1 % (0-0); Neutrophil 60 % (42-75); Nucleated RBC (Manual Ct) 4 % (0); Platelet Adequacy Comment Platelets Decreased; Polychromasia SLIGHT = 2-3 cells HPF (0-2); Total Cell Count 116
[2023-08-04] MEDS: Mometasone 200 MCG/Formoterol 5 MCG 120 PUFF INHALER INH SCH ×2 (07:12→19:08)
[2023-08-04] MEDS ORDERED: Furosemide 20 MG/2 ML VIAL SLOW IVP SCH (08:30)
[2023-08-04] MEDS: levETIRAcetam 500 MG/5 ML VIAL SLOW IVP SCH ×2 (09:50→20:15)
[2023-08-04] MEDS: Furosemide 20 MG/2 ML VIAL SLOW IVP SCH (09:50)
[2023-08-04] MEDS: methylPREDNISolone Sod Succ 40 MG VIAL IVP SCH (09:50)
[2023-08-04] MEDS: Atorvastatin Calcium 20 MG TAB PO SCH (09:50)
[2023-08-04] MEDS: Aspirin Chewable 81 MG TAB PO SCH (09:50)
[2023-08-04] MEDS: Pantoprazole 40 MG VIAL IVP SCH (09:50)
[2023-08-04] MEDS: Folic Acid 1 MG TAB PO SCH (09:50)
[2023-08-04] MEDS: Senokot S 8.6-50 MG TAB PO SCH (09:50)
[2023-08-04] MEDS: Polyethylene Glycol 3350 17 GM Packet PER TUBE SCH (09:51)
[2023-08-04] MEDS: Insulin NPH Human Isophane 100 UNITS/ML (10 ML VIAL) SC SCH ×2 (09:57→21:32)
[2023-08-05 01:34] LABS: Hematocrit 27.5 % (42.0-52.0); Hemoglobin 8.6 g/dL (14.0-18.0)
[2023-08-05] MEDS: Ipratropium/Albuterol 3 ML NEB NEB SCH ×6 (03:10→22:06)
[2023-08-05] MEDS: Cefepime 2 GM in Sodium Chloride 0.9% 100 ML IVPB SCH ×2 (03:51→16:17)
[2023-08-05] MEDS: HumaLOG 300 UNITS/3 ML VIAL SC PRN ×3 (03:57→21:01)
[2023-08-05] MEDS: Mometasone 200 MCG/Formoterol 5 MCG 120 PUFF INHALER INH SCH ×2 (07:34→18:36)
[2023-08-05] MEDS: levETIRAcetam 500 MG/5 ML VIAL SLOW IVP SCH ×2 (08:05→21:00)
[2023-08-05] MEDS: Atorvastatin Calcium 20 MG TAB PO SCH (08:06)
[2023-08-05] MEDS: Pantoprazole 40 MG VIAL IVP SCH (08:06)
[2023-08-05] MEDS: Aspirin Chewable 81 MG TAB PO SCH (08:06)
[2023-08-05] MEDS: Furosemide 20 MG/2 ML VIAL SLOW IVP SCH (08:06)
[2023-08-05] MEDS: Folic Acid 1 MG TAB PO SCH (08:06)
[2023-08-05] MEDS: Senokot S 8.6-50 MG TAB PO SCH (08:06)
[2023-08-05] MEDS: methylPREDNISolone Sod Succ 40 MG VIAL IVP SCH (08:06)
[2023-08-05] MEDS: Insulin NPH Human Isophane 100 UNITS/ML (10 ML VIAL) SC SCH ×2 (08:07→21:01)
[2023-08-05] MEDS: Polyethylene Glycol 3350 17 GM Packet PER TUBE SCH (08:07)
[2023-08-05 12:04] LABS: Hematocrit 30.7 % (42.0-52.0); Hemoglobin 9.4 g/dL (14.0-18.0); Mean Corpuscular HGB CONC 30.6 g/dL (32.0-36.0); Mean Corpuscular Hemoglobin 28.5 pg (27.0-31.0); Mean Platelet Volume 10.3 fL (7.4-10.4); Platelet Count 127 10x3/uL (130-400); RBC Distribution Width 15.7 % (11.5-14.5); White Blood Cell (WBC) Count 9.1 10x3/uL (4.8-10.8)
[2023-08-05 12:06] LABS: Delete Auto Diff?? YES; Manual Diff?? YES
[2023-08-05 12:32] LABS: Band 7 % (5-11); CellaVision Operator ID LAB.KB; Hypochromia SLIGHT = 6-15 cells HPF (0-5); Lymphocytes 10 % (21-51); Myelocyte 1 % (0-0); Neutrophil 82 % (42-75); Nucleated RBC (Manual Ct) 2 % (0); Ovalocytes SLIGHT = 2-5 cells HPF (0-1); Platelet Adequacy Comment Platelets Decreased; Polychromasia SLIGHT = 2-3 cells HPF (0-2); Reactive Lymphocytes 1 % (0-10); Smudge Cells 10.7 %; Total Cell Count 103
[2023-08-05] MEDS ORDERED: Dexmedetomidine In 0.9 % NaCl 100 ML IVPB SCH (19:45)
[2023-08-05] MEDS: Dexmedetomidine 400 MCG, Admixture Fee 1 EACH in Sodium Chloride 0.9% 96 ML IVPB SCH (21:02)
[2023-08-06] MEDS: Ipratropium/Albuterol 3 ML NEB NEB SCH ×6 (02:07→22:29)
[2023-08-06] MEDS: Cefepime 2 GM in Sodium Chloride 0.9% 100 ML IVPB SCH ×2 (03:21→17:20)
[2023-08-06] MEDS: HumaLOG 300 UNITS/3 ML VIAL SC PRN ×2 (03:30→17:21)
[2023-08-06 05:24] LABS: Hematocrit 27.4 % (42.0-52.0); Hemoglobin 8.5 g/dL (14.0-18.0); Mean Corpuscular Hemoglobin 28.5 pg (27.0-31.0); Mean Corpuscular Volume 91.9 fl (78.0-98.0); Mean Platelet Volume 9.8 fL (7.4-10.4); Platelet Count 99 10x3/uL (130-400); RBC Distribution Width 15.5 % (11.5-14.5); Red Blood Cell (RBC) Count 2.98 mill/uL (4.70-6.10); White Blood Cell (WBC) Count 4.7 10x3/uL (4.8-10.8)
[2023-08-06 05:38] LABS: Delete Auto Diff?? YES; Manual Diff?? YES
[2023-08-06 05:47] LABS: Anion Gap 11 mmol/L (10-20); BUN (Urea Nitrogen) 27 mg/dL (8.4-25.7); Calc. Creatinine Clearance 194 mL/min (70-130); Calcium 7.6 mg/dL (7.8-10.44); Carbon Dioxide 35 mmol/L (22-29); Chloride 98 mmol/L (98-107); Estimated GFR 117; Glucose 214 mg/dL (70-105); Potassium 3.2 mmol/L (3.5-5.1); Sodium 141 mmol/L (136-145)
[2023-08-06 06:02] LABS: Anisocytosis SLIGHT = 6-15 cells HPF (0-5); Band 2 % (5-11); CellaVision Operator ID lab.abc; Lymphocytes 16 % (21-51); Metamyelocyte 1 % (0-0); Monocytes 3 % (0-10); Myelocyte 2 % (0-0); Neutrophil 76 % (42-75); Platelet Adequacy Comment Platelets Decreased; Polychromasia SLIGHT = 2-3 cells HPF (0-2); Total Cell Count 100
[2023-08-06] MEDS ORDERED: Potassium Chloride 20 MEQ TAB PO SCH (08:00)
[2023-08-06] MEDS: Atorvastatin Calcium 20 MG TAB PO SCH (09:13)
[2023-08-06] MEDS: Folic Acid 1 MG TAB PO SCH (09:13)
[2023-08-06] MEDS: Aspirin Chewable 81 MG TAB PO SCH (09:13)
[2023-08-06] MEDS: Furosemide 20 MG/2 ML VIAL SLOW IVP SCH ×2 (09:14→09:35)
[2023-08-06] MEDS: methylPREDNISolone Sod Succ 40 MG VIAL IVP SCH (09:14)
[2023-08-06] MEDS: Pantoprazole 40 MG VIAL IVP SCH (09:14)
[2023-08-06] MEDS: Senokot S 8.6-50 MG TAB PO SCH (09:14)
[2023-08-06] MEDS: Polyethylene Glycol 3350 17 GM Packet PER TUBE SCH (09:14)
[2023-08-06] MEDS: levETIRAcetam 500 MG/5 ML VIAL SLOW IVP SCH ×2 (09:14→22:10)
[2023-08-06] MEDS: Insulin NPH Human Isophane 100 UNITS/ML (10 ML VIAL) SC SCH ×2 (09:18→22:10)
[2023-08-06] MEDS: Mometasone 200 MCG/Formoterol 5 MCG 120 PUFF INHALER INH SCH ×2 (09:38→19:11)
[2023-08-07] MEDS: Ipratropium/Albuterol 3 ML NEB NEB SCH ×6 (01:48→21:57)
[2023-08-07] MEDS: Cefepime 2 GM in Sodium Chloride 0.9% 100 ML IVPB SCH (04:13)
[2023-08-07 04:43] LABS: Hematocrit 32.9 % (42.0-52.0); Hemoglobin 10.3 g/dL (14.0-18.0); Mean Corpuscular HGB CONC 31.3 g/dL (32.0-36.0); Mean Corpuscular Hemoglobin 28.6 pg (27.0-31.0); Mean Corpuscular Volume 91.4 fl (78.0-98.0); Mean Platelet Volume 9.2 fL (7.4-10.4); Platelet Count 133 10x3/uL (130-400); RBC Distribution Width 15.5 % (11.5-14.5); White Blood Cell (WBC) Count 10.4 10x3/uL (4.8-10.8)
[2023-08-07 05:02] LABS: Anion Gap 12 mmol/L (10-20); BUN (Urea Nitrogen) 27 mg/dL (8.4-25.7); Calc. Creatinine Clearance 212 mL/min (70-130); Calcium 8.3 mg/dL (7.8-10.44); Carbon Dioxide 37 mmol/L (22-29); Chloride 96 mmol/L (98-107); Estimated GFR 121; Sodium 141 mmol/L (136-145)
[2023-08-07 05:04] LABS: Delete Auto Diff?? YES; Manual Diff?? YES
[2023-08-07 05:06] LABS: Glucose 45 mg/dL (70-105)
[2023-08-07 06:36] LABS: Anisocytosis SLIGHT = 6-15 cells HPF (0-5); Band 7 % (5-11); CellaVision Operator ID LAB.JMM; Lymphocytes 14 % (21-51); Macrocytosis SLIGHT = 6-15 cells HPF (0-5); Metamyelocyte 3 % (0-0); Monocytes 4 % (0-10); Neutrophil 72 % (42-75); Nucleated RBC (Manual Ct) 2 % (0); Platelet Adequacy Comment Platelets Normal; Polychromasia SLIGHT = 2-3 cells HPF (0-2); Total Cell Count 100
[2023-08-07] MEDS: Mometasone 200 MCG/Formoterol 5 MCG 120 PUFF INHALER INH SCH ×2 (06:46→19:00)
[2023-08-07] MEDS ORDERED: Pantoprazole 40 MG GRANULES PACKET PER TUBE SCH (09:00)
[2023-08-07] MEDS: acetaZOLAMIDE Sodium 500 mg Vial IVP SCH (09:35)
[2023-08-07] MEDS: Aspirin Chewable 81 MG TAB PO SCH (09:36)
[2023-08-07] MEDS: Senokot S 8.6-50 MG TAB PO SCH (09:36)
[2023-08-07] MEDS: Folic Acid 1 MG TAB PO SCH (09:36)
[2023-08-07] MEDS: Atorvastatin Calcium 20 MG TAB PO SCH (09:36)
[2023-08-07] MEDS: levETIRAcetam 500 MG TAB PER TUBE SCH ×2 (09:36→20:05)
[2023-08-07] MEDS: Polyethylene Glycol 3350 17 GM Packet PER TUBE SCH (09:37)
[2023-08-07] MEDS: methylPREDNISolone 4 mg Tablet PO SCH (09:39)
[2023-08-07] MEDS: Lansoprazole 15 MG/5 ML (BATCHED)UDCUP PER TUBE SCH (09:53)
[2023-08-07] MEDS: Insulin NPH Human Isophane 100 UNITS/ML (10 ML VIAL) SC SCH ×2 (11:00→20:06)
[2023-08-07] MEDS: Dexmedetomidine 400 MCG, Admixture Fee 1 EACH in Sodium Chloride 0.9% 96 ML IVPB SCH ×2 (11:11→20:06)
[2023-08-07] MEDS ORDERED: Dexmedetomidine In 0.9 % NaCl 100 ML IVPB SCH (11:30)
[2023-08-07] MEDS ORDERED: Dexmedetomidine 1,000 MCG, Admixture Fee 1 EACH in Sodium Chloride 0.9% 250 ML 240 ML IVPB SCH (12:00)
[2023-08-07] MEDS: Furosemide 20 MG/2 ML VIAL SLOW IVP SCH (14:18)
[2023-08-07] MEDS: HumaLOG 300 UNITS/3 ML VIAL SC PRN ×2 (17:39→20:09)
[2023-08-08] MEDS: Ipratropium/Albuterol 3 ML NEB NEB SCH ×6 (02:17→22:27)
[2023-08-08 03:26] LABS: Hematocrit 29.7 % (42.0-52.0); Hemoglobin 9.1 g/dL (14.0-18.0); Mean Corpuscular HGB CONC 30.6 g/dL (32.0-36.0); Mean Corpuscular Hemoglobin 28.5 pg (27.0-31.0); Mean Corpuscular Volume 93.1 fl (78.0-98.0); RBC Distribution Width 15.9 % (11.5-14.5); Red Blood Cell (RBC) Count 3.19 mill/uL (4.70-6.10); White Blood Cell (WBC) Count 4.9 10x3/uL (4.8-10.8)
[2023-08-08 03:42] LABS: Delete Auto Diff?? YES; Manual Diff?? YES; Platelet Count 83 10x3/uL (130-400)
[2023-08-08 03:46] LABS: Anion Gap 11 mmol/L (10-20); BUN (Urea Nitrogen) 22 mg/dL (8.4-25.7); Calc. Creatinine Clearance 176 mL/min (70-130); Calcium 8.2 mg/dL (7.8-10.44); Carbon Dioxide 37 mmol/L (22-29); Chloride 101 mmol/L (98-107); Estimated GFR 115; Glucose 146 mg/dL (70-105); Magnesium 2.2 mg/dL (1.6-2.6); Potassium 3.5 mmol/L (3.5-5.1); Sodium 145 mmol/L (136-145)
[2023-08-08 04:54] LABS: Band 10 % (5-11); CellaVision Operator ID lab.abc; Lymphocytes 14 % (21-51); Metamyelocyte 2 % (0-0); Monocytes 3 % (0-10); Myelocyte 3 % (0-0); Neutrophil 68 % (42-75); Platelet Adequacy Comment Platelets Decreased; Polychromasia SLIGHT = 2-3 cells HPF (0-2); Smudge Cells 20.8 %; Total Cell Count 101
[2023-08-08] MEDS: Furosemide 20 MG/2 ML VIAL SLOW IVP SCH ×2 (06:24→15:35)
[2023-08-08] MEDS: Mometasone 200 MCG/Formoterol 5 MCG 120 PUFF INHALER INH SCH ×2 (07:31→18:30)
[2023-08-08] MEDS ORDERED: Potassium Bicarbonate/Cit Ac 20 MEQ TAB PER TUBE SCH (08:00)
[2023-08-08] MEDS: Dexmedetomidine 400 MCG, Admixture Fee 1 EACH in Sodium Chloride 0.9% 96 ML IVPB SCH (08:21)
[2023-08-08] MEDS: methylPREDNISolone 4 mg Tablet PO SCH (09:06)
[2023-08-08] MEDS: acetaZOLAMIDE Sodium 500 mg Vial IVP SCH (09:07)
[2023-08-08] MEDS: levETIRAcetam 500 MG TAB PER TUBE SCH ×2 (09:07→20:03)
[2023-08-08] MEDS: Senokot S 8.6-50 MG TAB PO SCH (09:07)
[2023-08-08] MEDS: Aspirin Chewable 81 MG TAB PO SCH (09:07)
[2023-08-08] MEDS: Atorvastatin Calcium 20 MG TAB PO SCH (09:07)
[2023-08-08] MEDS: Folic Acid 1 MG TAB PO SCH (09:07)
[2023-08-08] MEDS: Polyethylene Glycol 3350 17 GM Packet PER TUBE SCH (09:08)
[2023-08-08] MEDS: Lansoprazole 15 MG/5 ML (BATCHED)UDCUP PER TUBE SCH (09:08)
[2023-08-08] MEDS: Insulin NPH Human Isophane 100 UNITS/ML (10 ML VIAL) SC SCH ×2 (10:23→20:03)
[2023-08-08 13:52] LABS: Potassium 4.1 mmol/L (3.5-5.1)
[2023-08-09] MEDS: Ipratropium/Albuterol 3 ML NEB NEB SCH ×6 (02:49→21:46)
[2023-08-09 04:02] LABS: Mean Corpuscular HGB CONC 29.4 g/dL (32.0-36.0); Mean Corpuscular Volume 95.1 fl (78.0-98.0); Mean Platelet Volume 11.1 fL (7.4-10.4); Platelet Count 135 10x3/uL (130-400); Red Blood Cell (RBC) Count 4.11 mill/uL (4.70-6.10); White Blood Cell (WBC) Count 9.9 10x3/uL (4.8-10.8)
[2023-08-09 04:30] LABS: Anion Gap 14 mmol/L (10-20); BUN (Urea Nitrogen) 23 mg/dL (8.4-25.7); Calc. Creatinine Clearance 153 mL/min (70-130); Calcium 9.3 mg/dL (7.8-10.44); Carbon Dioxide 36 mmol/L (22-29); Chloride 111 mmol/L (98-107); Estimated GFR 111; Glucose 115 mg/dL (70-105); Magnesium 2.5 mg/dL (1.6-2.6); Potassium 4.1 mmol/L (3.5-5.1)
[2023-08-09 04:34] LABS: Sodium 157 mmol/L (136-145)
[2023-08-09 04:47] LABS: Delete Auto Diff?? YES; Hematocrit 39.1 % (42.0-52.0); Hemoglobin 11.5 g/dL (14.0-18.0); Manual Diff?? YES
[2023-08-09] MEDS: Furosemide 20 MG/2 ML VIAL SLOW IVP SCH ×2 (05:14→05:37)
[2023-08-09 05:16] LABS: Anisocytosis MODERATE=16-30 cells HPF (0-5); Band 11 % (5-11); CellaVision Operator ID LAB.JMM; Hypochromia MODERATE=16-30 cells HPF (0-5); Lymphocytes 19 % (21-51); Macrocytosis SLIGHT = 6-15 cells HPF (0-5); Metamyelocyte 2 % (0-0); Monocytes 6 % (0-10); Myelocyte 6 % (0-0); Neutrophil 56 % (42-75); Nucleated RBC (Manual Ct) 2 % (0); Platelet Adequacy Comment Platelets Normal; Polychromasia MODERATE = 3-4 cells HPF (0-2); Reactive Lymphocytes 1 % (0-10); Smudge Cells 7.8 %; Total Cell Count 102
[2023-08-09 05:17] LABS: Sodium 155 mmol/L (136-145)
[2023-08-09] MEDS: Mometasone 200 MCG/Formoterol 5 MCG 120 PUFF INHALER INH SCH ×2 (06:51→18:45)
[2023-08-09 07:31] LABS: Sodium 157 mmol/L (136-145)
[2023-08-09] MEDS: Aspirin Chewable 81 MG TAB PO SCH (08:54)
[2023-08-09] MEDS: Lansoprazole 15 MG/5 ML (BATCHED)UDCUP PER TUBE SCH (08:55)
[2023-08-09] MEDS: Folic Acid 1 MG TAB PO SCH (08:55)
[2023-08-09] MEDS: Atorvastatin Calcium 20 MG TAB PO SCH (08:55)
[2023-08-09] MEDS: levETIRAcetam 500 MG TAB PER TUBE SCH (08:55)
[2023-08-09] MEDS: Senokot S 8.6-50 MG TAB PO SCH (08:55)
[2023-08-09] MEDS: Polyethylene Glycol 3350 17 GM Packet PER TUBE SCH (08:55)
[2023-08-09] MEDS: Potassium Bicarbonate/Cit Ac 20 MEQ TAB PO SCH (08:55)
[2023-08-09] MEDS: methylPREDNISolone 4 mg Tablet PO SCH (08:56)
[2023-08-09] MEDS: clonazePAM 0.5 MG TAB PO SCH ×2 (08:57→20:44)
[2023-08-09] MEDS: Insulin NPH Human Isophane 100 UNITS/ML (10 ML VIAL) SC SCH (09:14)
[2023-08-09] MEDS: Dextrose 5% in Water 1,000 ML IV SCH ×2 (09:14→18:49)
[2023-08-09 09:20] LABS: Sodium 155 mmol/L (136-145)
[2023-08-09] MEDS: HumaLOG 300 UNITS/3 ML VIAL SC PRN ×3 (11:31→20:45)
[2023-08-09 13:03] LABS: Sodium 151 mmol/L (136-145)
[2023-08-09 14:40] LABS: Sodium 152 mmol/L (136-145)
[2023-08-09 16:49] LABS: Sodium 151 mmol/L (136-145)
[2023-08-09 18:36] LABS: Sodium 148 mmol/L (136-145)
[2023-08-09 20:38] LABS: Sodium 145 mmol/L (136-145)
[2023-08-09] MEDS: levETIRAcetam 500 mg/5 ml Oral Solution PER TUBE SCH (20:45)
[2023-08-09 22:55] LABS: Sodium 147 mmol/L (136-145)
[2023-08-10] MEDS: Ipratropium/Albuterol 3 ML NEB NEB SCH ×6 (01:58→22:00)
[2023-08-10] MEDS: Dextrose 5% in Water 1,000 ML IV SCH ×2 (02:15→18:32)
[2023-08-10] MEDS: Dexmedetomidine 400 MCG, Admixture Fee 1 EACH in Sodium Chloride 0.9% 96 ML IVPB SCH (02:15)
[2023-08-10 04:08] LABS: #Monocytes 0.3 thou/uL (0.11-0.59); #Neutrophils 4.2 thou/uL (1.40-6.50); %Basophils 0.2 % (0.0-1.0); %Eosinophils 0.3 % (0.0-10.0); %Lymphocytes 19.6 % (21.0-51.0); %Monocytes 5.4 % (0.0-10.0); %Neutrophils 69.6 % (42.0-75.0); Hematocrit 31.2 % (42.0-52.0); Hemoglobin 9.3 g/dL (14.0-18.0); Mean Corpuscular HGB CONC 29.8 g/dL (32.0-36.0); Mean Corpuscular Hemoglobin 28.4 pg (27.0-31.0); Mean Corpuscular Volume 95.1 fl (78.0-98.0); Mean Platelet Volume 9.8 fL (7.4-10.4); Platelet Count 107 10x3/uL (130-400); RBC Distribution Width 16.6 % (11.5-14.5); Red Blood Cell (RBC) Count 3.28 mill/uL (4.70-6.10); White Blood Cell (WBC) Count 6.1 10x3/uL (4.8-10.8)
[2023-08-10 04:35] LABS: Anion Gap 12 mmol/L (10-20); BUN (Urea Nitrogen) 36 mg/dL (8.4-25.7); Calc. Creatinine Clearance 180 mL/min (70-130); Calcium 8.7 mg/dL (7.8-10.44); Carbon Dioxide 35 mmol/L (22-29); Chloride 104 mmol/L (98-107); Estimated GFR 116; Glucose 159 mg/dL (70-105); Magnesium 2.2 mg/dL (1.6-2.6); Potassium 4.1 mmol/L (3.5-5.1); Sodium 147 mmol/L (136-145)
[2023-08-10] MEDS: Mometasone 200 MCG/Formoterol 5 MCG 120 PUFF INHALER INH SCH ×2 (07:11→18:14)
[2023-08-10] MEDS: methylPREDNISolone 4 mg Tablet PO SCH ×2 (09:10)
[2023-08-10] MEDS: Senokot S 8.6-50 MG TAB PO SCH (09:10)
[2023-08-10] MEDS: Atorvastatin Calcium 20 MG TAB PO SCH (09:10)
[2023-08-10] MEDS: clonazePAM 0.5 MG TAB PO SCH ×2 (09:10→20:22)
[2023-08-10] MEDS: Polyethylene Glycol 3350 17 GM Packet PER TUBE SCH (09:10)
[2023-08-10] MEDS: Folic Acid 1 MG TAB PO SCH (09:10)
[2023-08-10] MEDS: Aspirin Chewable 81 MG TAB PO SCH (09:10)
[2023-08-10] MEDS: Potassium Bicarbonate/Cit Ac 20 MEQ TAB PO SCH (09:10)
[2023-08-10] MEDS: Insulin NPH Human Isophane 100 UNITS/ML (10 ML VIAL) SC SCH (09:14)
[2023-08-10] MEDS: Lansoprazole 15 MG/5 ML (BATCHED)UDCUP PER TUBE SCH (09:31)
[2023-08-10] MEDS: levETIRAcetam 500 mg/5 ml Oral Solution PER TUBE SCH ×2 (09:31→20:22)
[2023-08-11] MEDS: Dextrose 5% in Water 1,000 ML IV SCH ×3 (00:51→22:17)
[2023-08-11] MEDS: Ipratropium/Albuterol 3 ML NEB NEB SCH ×6 (01:09→22:22)
[2023-08-11 04:30] LABS: #Monocytes 0.4 thou/uL (0.11-0.59); #Neutrophils 4.9 thou/uL (1.40-6.50); %Basophils 0.1 % (0.0-1.0); %Eosinophils 0.1 % (0.0-10.0); %Lymphocytes 22.2 % (21.0-51.0); %Monocytes 6.1 % (0.0-10.0); %Neutrophils 67.5 % (42.0-75.0); Hematocrit 32.7 % (42.0-52.0); Hemoglobin 9.6 g/dL (14.0-18.0); Mean Corpuscular HGB CONC 29.4 g/dL (32.0-36.0); Mean Corpuscular Volume 95.3 fl (78.0-98.0); Mean Platelet Volume 9.7 fL (7.4-10.4); Platelet Count 139 10x3/uL (130-400); RBC Distribution Width 16.2 % (11.5-14.5); Red Blood Cell (RBC) Count 3.43 mill/uL (4.70-6.10); White Blood Cell (WBC) Count 7.2 10x3/uL (4.8-10.8)
[2023-08-11 04:47] LABS: Phosphorus 2.9 mg/dL (2.3-4.7)
[2023-08-11 05:00] LABS: BUN (Urea Nitrogen) 38 mg/dL (8.4-25.7); Calc. Creatinine Clearance 143 mL/min (70-130); Calcium 8.7 mg/dL (7.8-10.44); Estimated GFR 111; Glucose 104 mg/dL (70-105)
[2023-08-11 05:12] LABS: Anion Gap 13 mmol/L (10-20); Carbon Dioxide 36 mmol/L (22-29); Chloride 103 mmol/L (98-107); Potassium 3.5 mmol/L (3.5-5.1); Sodium 148 mmol/L (136-145)
[2023-08-11] MEDS: Mometasone 200 MCG/Formoterol 5 MCG 120 PUFF INHALER INH SCH ×2 (06:50→18:56)
[2023-08-11] MEDS ORDERED: Potassium Chloride 20 MEQ TAB PO SCH (08:00)
[2023-08-11] MEDS ORDERED: Magnesium 2 GM/50 ML(in water) 2 GM in Premix 1 BAG IVPB SCH (08:00)
[2023-08-11] MEDS: methylPREDNISolone 4 mg Tablet PO SCH ×2 (10:13→18:24)
[2023-08-11] MEDS: Senokot S 8.6-50 MG TAB PO SCH (10:14)
[2023-08-11] MEDS: clonazePAM 0.5 MG TAB PO SCH ×2 (10:14→22:17)
[2023-08-11] MEDS: Aspirin Chewable 81 MG TAB PO SCH (10:14)
[2023-08-11] MEDS: levETIRAcetam 500 mg/5 ml Oral Solution PER TUBE SCH ×2 (10:14→22:17)
[2023-08-11] MEDS: Polyethylene Glycol 3350 17 GM Packet PER TUBE SCH (10:14)
[2023-08-11] MEDS: Atorvastatin Calcium 20 MG TAB PO SCH (10:14)
[2023-08-11] MEDS: Folic Acid 1 MG TAB PO SCH (10:14)
[2023-08-11] MEDS: Insulin NPH Human Isophane 100 UNITS/ML (10 ML VIAL) SC SCH (10:15)
[2023-08-11] MEDS: Lansoprazole 15 MG/5 ML (BATCHED)UDCUP PER TUBE SCH (11:01)
[2023-08-11] MEDS: HumaLOG 300 UNITS/3 ML VIAL SC PRN (18:38)
[2023-08-11] MEDS: Acetylcysteine (MUCOMYST) 200 MG/ML (10 ML VIAL) NEB SCH (19:16)
[2023-08-12] MEDS: Ipratropium/Albuterol 3 ML NEB NEB SCH ×6 (02:07→22:15)
[2023-08-12 03:55] LABS: #Monocytes 0.6 thou/uL (0.11-0.59); #Neutrophils 5.4 thou/uL (1.40-6.50); %Basophils 0.1 % (0.0-1.0); %Lymphocytes 20.9 % (21.0-51.0); %Monocytes 7.6 % (0.0-10.0); %Neutrophils 67.8 % (42.0-75.0); Hematocrit 27.8 % (42.0-52.0); Hemoglobin 8.4 g/dL (14.0-18.0); Mean Corpuscular HGB CONC 30.2 g/dL (32.0-36.0); Mean Corpuscular Hemoglobin 28.7 pg (27.0-31.0); Mean Corpuscular Volume 94.9 fl (78.0-98.0); Mean Platelet Volume 9.7 fL (7.4-10.4); Platelet Count 129 10x3/uL (130-400); Red Blood Cell (RBC) Count 2.93 mill/uL (4.70-6.10)
[2023-08-12 04:15] LABS: Anion Gap 12 mmol/L (10-20); BUN (Urea Nitrogen) 31 mg/dL (8.4-25.7); Calc. Creatinine Clearance 161 mL/min (70-130); Calcium 7.9 mg/dL (7.8-10.44); Carbon Dioxide 35 mmol/L (22-29); Chloride 98 mmol/L (98-107); Estimated GFR 115; Glucose 141 mg/dL (70-105); Sodium 141 mmol/L (136-145)
[2023-08-12] MEDS: Acetylcysteine (MUCOMYST) 200 MG/ML (10 ML VIAL) NEB SCH ×2 (06:45→18:47)
[2023-08-12] MEDS: Mometasone 200 MCG/Formoterol 5 MCG 120 PUFF INHALER INH SCH ×2 (06:46→18:48)
[2023-08-12] MEDS: Dextrose 5% in Water 1,000 ML IV SCH (06:49)
[2023-08-12] MEDS ORDERED: Magnesium 2 GM/50 ML(in water) 2 GM in Premix 1 BAG IVPB SCH (08:00)
[2023-08-12] MEDS: levETIRAcetam 500 mg/5 ml Oral Solution PER TUBE SCH ×2 (08:48→20:16)
[2023-08-12] MEDS: Lansoprazole 15 MG/5 ML (BATCHED)UDCUP PER TUBE SCH (08:48)
[2023-08-12] MEDS: methylPREDNISolone 4 mg Tablet PO SCH ×2 (08:48)
[2023-08-12] MEDS: Folic Acid 1 MG TAB PO SCH (08:49)
[2023-08-12] MEDS: Atorvastatin Calcium 20 MG TAB PO SCH (08:49)
[2023-08-12] MEDS: Senokot S 8.6-50 MG TAB PO SCH (08:49)
[2023-08-12] MEDS: Aspirin Chewable 81 MG TAB PO SCH (08:49)
[2023-08-12] MEDS: clonazePAM 0.5 MG TAB PO SCH ×2 (08:49→20:16)
[2023-08-12] MEDS: Polyethylene Glycol 3350 17 GM Packet PER TUBE SCH (08:49)
[2023-08-12] MEDS: Insulin NPH Human Isophane 100 UNITS/ML (10 ML VIAL) SC SCH (08:49)
[2023-08-12] MEDS: HumaLOG 300 UNITS/3 ML VIAL SC PRN (18:30)
[2023-08-13] MEDS: Ipratropium/Albuterol 3 ML NEB NEB SCH ×6 (02:02→21:55)
[2023-08-13 04:35] LABS: #Monocytes 0.6 thou/uL (0.11-0.59); #Neutrophils 6.1 thou/uL (1.40-6.50); %Basophils 0.1 % (0.0-1.0); %Eosinophils 0.1 % (0.0-10.0); %Monocytes 6.5 % (0.0-10.0); %Neutrophils 70.3 % (42.0-75.0); Hematocrit 28.8 % (42.0-52.0); Hemoglobin 8.7 g/dL (14.0-18.0); Mean Corpuscular HGB CONC 30.2 g/dL (32.0-36.0); Mean Corpuscular Hemoglobin 28.3 pg (27.0-31.0); Mean Corpuscular Volume 93.8 fl (78.0-98.0); Mean Platelet Volume 10.7 fL (7.4-10.4); Platelet Count 160 10x3/uL (130-400); RBC Distribution Width 15.5 % (11.5-14.5); Red Blood Cell (RBC) Count 3.07 mill/uL (4.70-6.10); White Blood Cell (WBC) Count 8.7 10x3/uL (4.8-10.8)
[2023-08-13 05:18] LABS: Anion Gap 9 mmol/L (10-20); BUN (Urea Nitrogen) 25 mg/dL (8.4-25.7); Calc. Creatinine Clearance 153 mL/min (70-130); Calcium 8.2 mg/dL (7.8-10.44); Carbon Dioxide 36 mmol/L (22-29); Chloride 93 mmol/L (98-107); Estimated GFR 113; Glucose 176 mg/dL (70-105); Magnesium 1.8 mg/dL (1.6-2.6); Potassium 3.7 mmol/L (3.5-5.1); Sodium 134 mmol/L (136-145)
[2023-08-13] MEDS: Mometasone 200 MCG/Formoterol 5 MCG 120 PUFF INHALER INH SCH ×2 (06:40→18:08)
[2023-08-13] MEDS: Acetylcysteine (MUCOMYST) 200 MG/ML (10 ML VIAL) NEB SCH ×2 (06:44→18:09)
[2023-08-13] MEDS ORDERED: Magnesium 2 GM/50 ML(in water) 2 GM in Premix 1 BAG IVPB SCH (08:00)
[2023-08-13] MEDS: methylPREDNISolone 4 mg Tablet PO SCH ×2 (10:51→10:54)
[2023-08-13] MEDS: Aspirin Chewable 81 MG TAB PO SCH (10:53)
[2023-08-13] MEDS: Atorvastatin Calcium 20 MG TAB PO SCH (10:53)
[2023-08-13] MEDS: Senokot S 8.6-50 MG TAB PO SCH (10:53)
[2023-08-13] MEDS: levETIRAcetam 500 mg/5 ml Oral Solution PER TUBE SCH ×2 (10:53→22:39)
[2023-08-13] MEDS: clonazePAM 0.5 MG TAB PO SCH ×2 (10:53→22:40)
[2023-08-13] MEDS: Lansoprazole 15 MG/5 ML (BATCHED)UDCUP PER TUBE SCH (10:54)
[2023-08-13] MEDS: Folic Acid 1 MG TAB PO SCH (10:55)
[2023-08-13] MEDS: Insulin NPH Human Isophane 100 UNITS/ML (10 ML VIAL) SC SCH (10:56)
[2023-08-13] MEDS: Polyethylene Glycol 3350 17 GM Packet PER TUBE SCH (11:29)
[2023-08-13] MEDS: HumaLOG 300 UNITS/3 ML VIAL SC PRN (17:43)
[2023-08-14] MEDS: HumaLOG 300 UNITS/3 ML VIAL SC PRN ×4 (00:24→13:28)
[2023-08-14] MEDS: Ipratropium/Albuterol 3 ML NEB NEB SCH ×6 (02:07→21:33)
[2023-08-14 04:14] LABS: #Monocytes 0.7 thou/uL (0.11-0.59); #Neutrophils 6.7 thou/uL (1.40-6.50); %Basophils 0.1 % (0.0-1.0); %Lymphocytes 14.8 % (21.0-51.0); %Monocytes 7.3 % (0.0-10.0); %Neutrophils 73.9 % (42.0-75.0); Hematocrit 27.3 % (42.0-52.0); Hemoglobin 8.3 g/dL (14.0-18.0); Mean Corpuscular HGB CONC 30.4 g/dL (32.0-36.0); Mean Corpuscular Hemoglobin 28.4 pg (27.0-31.0); Mean Corpuscular Volume 93.5 fl (78.0-98.0); Mean Platelet Volume 9.3 fL (7.4-10.4); Platelet Count 164 10x3/uL (130-400); RBC Distribution Width 15.2 % (11.5-14.5); Red Blood Cell (RBC) Count 2.92 mill/uL (4.70-6.10)
[2023-08-14 04:39] LABS: BUN (Urea Nitrogen) 17 mg/dL (8.4-25.7); Calc. Creatinine Clearance 158 mL/min (70-130); Calcium 8.1 mg/dL (7.8-10.44); Estimated GFR 114; Glucose 143 mg/dL (70-105); Magnesium 1.9 mg/dL (1.6-2.6)
[2023-08-14 04:48] LABS: Anion Gap 10 mmol/L (10-20); Carbon Dioxide 37 mmol/L (22-29); Chloride 92 mmol/L (98-107); Potassium 4.5 mmol/L (3.5-5.1); Sodium 134 mmol/L (136-145)
[2023-08-14] MEDS: Acetylcysteine (MUCOMYST) 200 MG/ML (10 ML VIAL) NEB SCH (07:19)
[2023-08-14] MEDS: Mometasone 200 MCG/Formoterol 5 MCG 120 PUFF INHALER INH SCH ×2 (07:29→18:28)
[2023-08-14] MEDS ORDERED: Magnesium 2 GM/50 ML(in water) 2 GM in Premix 1 BAG IVPB SCH (08:00)
[2023-08-14] MEDS: Lansoprazole 15 MG/5 ML (BATCHED)UDCUP PER TUBE SCH (09:21)
[2023-08-14] MEDS: levETIRAcetam 500 mg/5 ml Oral Solution PER TUBE SCH ×2 (09:22→20:57)
[2023-08-14] MEDS: Senokot S 8.6-50 MG TAB PO SCH (09:22)
[2023-08-14] MEDS: Atorvastatin Calcium 20 MG TAB PO SCH (09:22)
[2023-08-14] MEDS: Aspirin Chewable 81 MG TAB PO SCH (09:23)
[2023-08-14] MEDS: clonazePAM 0.5 MG TAB PO SCH ×2 (09:23→20:57)
[2023-08-14] MEDS: methylPREDNISolone 4 mg Tablet PO SCH (09:23)
[2023-08-14] MEDS: Folic Acid 1 MG TAB PO SCH (09:23)
[2023-08-14] MEDS: Polyethylene Glycol 3350 17 GM Packet PER TUBE SCH (10:10)
[2023-08-14] MEDS: Insulin NPH Human Isophane 100 UNITS/ML (10 ML VIAL) SC SCH (10:31)
[2023-08-15] MEDS: Ipratropium/Albuterol 3 ML NEB NEB SCH ×6 (02:07→21:52)
[2023-08-15 04:09] LABS: #Monocytes 0.6 thou/uL (0.11-0.59); #Neutrophils 5.5 thou/uL (1.40-6.50); %Basophils 0.1 % (0.0-1.0); %Eosinophils 0.3 % (0.0-10.0); %Lymphocytes 17.1 % (21.0-51.0); %Monocytes 7.5 % (0.0-10.0); %Neutrophils 71.9 % (42.0-75.0); Hematocrit 32.6 % (42.0-52.0); Hemoglobin 9.8 g/dL (14.0-18.0); Mean Corpuscular HGB CONC 30.1 g/dL (32.0-36.0); Mean Corpuscular Hemoglobin 28.8 pg (27.0-31.0); Mean Corpuscular Volume 95.9 fl (78.0-98.0); Platelet Count 203 10x3/uL (130-400); RBC Distribution Width 15.9 % (11.5-14.5); White Blood Cell (WBC) Count 7.7 10x3/uL (4.8-10.8)
[2023-08-15 04:33] LABS: Anion Gap 13 mmol/L (10-20); BUN (Urea Nitrogen) 14 mg/dL (8.4-25.7); Calc. Creatinine Clearance 161 mL/min (70-130); Calcium 8.7 mg/dL (7.8-10.44); Carbon Dioxide 37 mmol/L (22-29); Chloride 101 mmol/L (98-107); Estimated GFR 115; Glucose 106 mg/dL (70-105); Potassium 3.8 mmol/L (3.5-5.1); Sodium 147 mmol/L (136-145)
[2023-08-15] MEDS: Mometasone 200 MCG/Formoterol 5 MCG 120 PUFF INHALER INH SCH ×2 (06:50→18:29)
[2023-08-15] MEDS ORDERED: Dextrose 5% in Water 1,000 ML IV SCH (09:00)
[2023-08-15] MEDS: clonazePAM 0.5 MG TAB PO SCH ×2 (09:55→22:19)
[2023-08-15] MEDS: Lansoprazole 15 MG/5 ML (BATCHED)UDCUP PER TUBE SCH (09:55)
[2023-08-15] MEDS: Magnesium Oxide 400 MG TAB PER TUBE SCH (09:55)
[2023-08-15] MEDS: Polyethylene Glycol 3350 17 GM Packet PER TUBE SCH (09:56)
[2023-08-15] MEDS: Folic Acid 1 MG TAB PO SCH (09:56)
[2023-08-15] MEDS: Senokot S 8.6-50 MG TAB PO SCH (09:56)
[2023-08-15] MEDS: levETIRAcetam 500 mg/5 ml Oral Solution PER TUBE SCH ×2 (09:56→22:19)
[2023-08-15] MEDS: Atorvastatin Calcium 20 MG TAB PO SCH (09:56)
[2023-08-15] MEDS: methylPREDNISolone 4 mg Tablet PO SCH (09:56)
[2023-08-15] MEDS: Aspirin Chewable 81 MG TAB PO SCH (09:58)
[2023-08-15] MEDS: Insulin NPH Human Isophane 100 UNITS/ML (10 ML VIAL) SC SCH (09:58)
[2023-08-15] MEDS: HumaLOG 300 UNITS/3 ML VIAL SC PRN (16:51)
[2023-08-16] MEDS: Ipratropium/Albuterol 3 ML NEB NEB SCH ×6 (01:49→21:49)
[2023-08-16 04:14] LABS: BUN (Urea Nitrogen) 14 mg/dL (8.4-25.7); Calc. Creatinine Clearance 149 mL/min (70-130); Calcium 9.5 mg/dL (7.8-10.44); Estimated GFR 112; Glucose 131 mg/dL (70-105)
[2023-08-16 04:23] LABS: Anion Gap 13 mmol/L (10-20); Carbon Dioxide 39 mmol/L (22-29); Chloride 106 mmol/L (98-107); Potassium 4.1 mmol/L (3.5-5.1)
[2023-08-16 04:26] LABS: Sodium 154 mmol/L (136-145)
[2023-08-16] MEDS ORDERED: Dextrose 5 %-0.45 % NaCl 1,000 ML IV SCH (04:45)
[2023-08-16] MEDS: Mometasone 200 MCG/Formoterol 5 MCG 120 PUFF INHALER INH SCH ×2 (07:26→18:23)
[2023-08-16] MEDS: Magnesium Oxide 400 MG TAB PER TUBE SCH (10:25)
[2023-08-16] MEDS: Atorvastatin Calcium 20 MG TAB PO SCH (10:26)
[2023-08-16] MEDS: Senokot S 8.6-50 MG TAB PO SCH (10:26)
[2023-08-16] MEDS: Folic Acid 1 MG TAB PO SCH (10:27)
[2023-08-16] MEDS: clonazePAM 0.5 MG TAB PO SCH ×2 (10:27→23:18)
[2023-08-16] MEDS: methylPREDNISolone 4 mg Tablet PO SCH (10:27)
[2023-08-16] MEDS: levETIRAcetam 500 mg/5 ml Oral Solution PER TUBE SCH ×2 (10:27→23:27)
[2023-08-16] MEDS: Aspirin Chewable 81 MG TAB PO SCH (10:27)
[2023-08-16] MEDS: Lansoprazole 15 MG/5 ML (BATCHED)UDCUP PER TUBE SCH (10:28)
[2023-08-16] MEDS: Insulin NPH Human Isophane 100 UNITS/ML (10 ML VIAL) SC SCH (10:28)
[2023-08-16] MEDS: Polyethylene Glycol 3350 17 GM Packet PER TUBE SCH (10:29)
[2023-08-16] MEDS: Dextrose 5% in Water 1,000 ML IV SCH ×2 (10:34→23:23)
[2023-08-16 11:51] LABS: Sodium 154 mmol/L (136-145)
[2023-08-17] MEDS: Ipratropium/Albuterol 3 ML NEB NEB SCH ×6 (01:52→22:22)
[2023-08-17 04:56] LABS: BUN (Urea Nitrogen) 15 mg/dL (8.4-25.7); Calc. Creatinine Clearance 130 mL/min (70-130); Calcium 8.8 mg/dL (7.8-10.44); Estimated GFR 108; Glucose 173 mg/dL (70-105)
[2023-08-17 05:05] LABS: Anion Gap 20 mmol/L (10-20); Carbon Dioxide 34 mmol/L (22-29); Chloride 105 mmol/L (98-107); Potassium 3.5 mmol/L (3.5-5.1)
[2023-08-17 05:07] LABS: Sodium 155 mmol/L (136-145)
[2023-08-17] MEDS: Mometasone 200 MCG/Formoterol 5 MCG 120 PUFF INHALER INH SCH ×2 (06:40→19:04)
[2023-08-17] MEDS ORDERED: Potassium Chloride 20 MEQ TAB PO SCH (08:00)
[2023-08-17] MEDS: levETIRAcetam 500 mg/5 ml Oral Solution PER TUBE SCH ×2 (09:17→21:20)
[2023-08-17] MEDS: Polyethylene Glycol 3350 17 GM Packet PER TUBE SCH (09:17)
[2023-08-17] MEDS: Magnesium Oxide 400 MG TAB PER TUBE SCH (09:17)
[2023-08-17] MEDS: Lansoprazole 15 MG/5 ML (BATCHED)UDCUP PER TUBE SCH (09:17)
[2023-08-17] MEDS: methylPREDNISolone 4 mg Tablet PO SCH (09:17)
[2023-08-17] MEDS: Aspirin Chewable 81 MG TAB PO SCH (09:19)
[2023-08-17] MEDS: clonazePAM 0.5 MG TAB PO SCH ×2 (09:19→21:20)
[2023-08-17] MEDS: Folic Acid 1 MG TAB PO SCH (09:19)
[2023-08-17] MEDS: Atorvastatin Calcium 20 MG TAB PO SCH (09:19)
[2023-08-17] MEDS: Senokot S 8.6-50 MG TAB PO SCH (10:50)
[2023-08-17] MEDS: Dextrose 5% in Water 1,000 ML IV SCH ×3 (11:40→17:34)
[2023-08-17] MEDS: Insulin NPH Human Isophane 100 UNITS/ML (10 ML VIAL) SC SCH (11:41)
[2023-08-18] MEDS: Dextrose 5% in Water 1,000 ML IV SCH ×2 (01:45→10:33)
[2023-08-18] MEDS: Ipratropium/Albuterol 3 ML NEB NEB SCH ×6 (03:22→23:00)
[2023-08-18 04:11] LABS: Anion Gap 13 mmol/L (10-20); BUN (Urea Nitrogen) 20 mg/dL (8.4-25.7); Calc. Creatinine Clearance 134 mL/min (70-130); Calcium 8.4 mg/dL (7.8-10.44); Carbon Dioxide 36 mmol/L (22-29); Chloride 99 mmol/L (98-107); Estimated GFR 109; Glucose 199 mg/dL (70-105); Potassium 3.6 mmol/L (3.5-5.1); Sodium 144 mmol/L (136-145)
[2023-08-18] MEDS: Mometasone 200 MCG/Formoterol 5 MCG 120 PUFF INHALER INH SCH ×2 (07:09→18:58)
[2023-08-18] MEDS: methylPREDNISolone 4 mg Tablet PO SCH (09:44)
[2023-08-18] MEDS: Lansoprazole 15 MG/5 ML (BATCHED)UDCUP PER TUBE SCH (09:44)
[2023-08-18] MEDS: Aspirin Chewable 81 MG TAB PO SCH (09:44)
[2023-08-18] MEDS: Polyethylene Glycol 3350 17 GM Packet PER TUBE SCH (09:45)
[2023-08-18] MEDS: Folic Acid 1 MG TAB PO SCH (09:45)
[2023-08-18] MEDS: clonazePAM 0.5 MG TAB PO SCH ×2 (09:45→21:12)
[2023-08-18] MEDS: levETIRAcetam 500 mg/5 ml Oral Solution PER TUBE SCH ×2 (09:45→21:12)
[2023-08-18] MEDS: Magnesium Oxide 400 MG TAB PER TUBE SCH (09:45)
[2023-08-18] MEDS: Senokot S 8.6-50 MG TAB PO SCH (09:45)
[2023-08-18] MEDS: Atorvastatin Calcium 20 MG TAB PO SCH (09:45)
[2023-08-18] MEDS: Insulin NPH Human Isophane 100 UNITS/ML (10 ML VIAL) SC SCH (09:50)
[2023-08-19] MEDS: Ipratropium/Albuterol 3 ML NEB NEB SCH ×5 (03:05→18:44)
[2023-08-19 07:20] LABS: Anion Gap 12 mmol/L (10-20); BUN (Urea Nitrogen) 21 mg/dL (8.4-25.7); Calc. Creatinine Clearance 152 mL/min (70-130); Calcium 8.5 mg/dL (7.8-10.44); Carbon Dioxide 32 mmol/L (22-29); Chloride 99 mmol/L (98-107); Estimated GFR 113; Glucose 103 mg/dL (70-105); Potassium 3.3 mmol/L (3.5-5.1); Sodium 140 mmol/L (136-145)
[2023-08-19] MEDS: Mometasone 200 MCG/Formoterol 5 MCG 120 PUFF INHALER INH SCH ×2 (07:53→18:45)
[2023-08-19] MEDS ORDERED: Potassium Chloride 20 MEQ TAB PO SCH ×2 (08:00→16:15)
[2023-08-19] MEDS: Polyethylene Glycol 3350 17 GM Packet PER TUBE SCH (09:12)
[2023-08-19] MEDS: Lansoprazole 15 MG/5 ML (BATCHED)UDCUP PER TUBE SCH (09:12)
[2023-08-19] MEDS: levETIRAcetam 500 mg/5 ml Oral Solution PER TUBE SCH (09:12)
[2023-08-19] MEDS: methylPREDNISolone 4 mg Tablet PO SCH (09:12)
[2023-08-19] MEDS: clonazePAM 0.5 MG TAB PO SCH (09:13)
[2023-08-19] MEDS: Insulin NPH Human Isophane 100 UNITS/ML (10 ML VIAL) SC SCH (09:13)
[2023-08-19] MEDS: Atorvastatin Calcium 20 MG TAB PO SCH (09:13)
[2023-08-19] MEDS: Folic Acid 1 MG TAB PO SCH (09:13)
[2023-08-19] MEDS: Senokot S 8.6-50 MG TAB PO SCH (09:13)
[2023-08-19] MEDS: Magnesium Oxide 400 MG TAB PER TUBE SCH (09:13)
[2023-08-19] MEDS: Aspirin Chewable 81 MG TAB PO SCH (09:13)
[2023-08-19 15:01] VITALS: BMI 34.3
[2023-08-19 19:48] VITALS: BP 110/69; TEMP 98.8
== END 2023-08-19 20:26 | disposition home or self-care (01) | DRG 207 ==
LOC: ERS 01:50 → CCU 02:51 → 2NO 08-10 21:46 → T4-B 08-18 16:22
PROVIDERS: ADMIT Internal Medicine; ATTEND Internal Medicine
PROC: 5A1955Z Respiratory Ventilation, Greater than 96 Consecutive Hours (ICD-10-PCS; principal; 2023-08-01)
PROC: 4A133R1 Monitoring of Arterial Saturation, Peripheral, Percutaneous Approach (ICD-10-PCS; 2023-08-01)
PROC: 3E03329 Introduction of Other Anti-infective into Peripheral Vein, Percutaneous Approach (ICD-10-PCS; 2023-08-01)
PROC: 3E033XZ Introduction of Vasopressor into Peripheral Vein, Percutaneous Approach (ICD-10-PCS; 2023-08-01)
PROC: 0B21XFZ Change Tracheostomy Device in Trachea, External Approach (ICD-10-PCS; 2023-08-01)
PROC: 30233N1 Transfusion of Nonautologous Red Blood Cells into Peripheral Vein, Percutaneous Approach (ICD-10-PCS; 2023-08-04)
PROC: 5A09357 Assistance with Respiratory Ventilation, Less than 24 Consecutive Hours, Continuous Positive Airway Pressure (ICD-10-PCS; 2023-08-18)
DX: J69.0 Pneumonitis due to inhalation of food and vomit (principal); J96.21 Acute and chronic respiratory failure with hypoxia; J96.22 Acute and chronic respiratory failure with hypercapnia; G93.41 Metabolic encephalopathy; E66.2 Morbid (severe) obesity with alveolar hypoventilation; E87.0 Hyperosmolality and hypernatremia; E87.1 Hypo-osmolality and hyponatremia; D61.818 Other pancytopenia; J84.82 Adult pulmonary Langerhans cell histiocytosis; J84.9 Interstitial pulmonary disease, unspecified; I10 Essential (primary) hypertension; G40.909 Epilepsy, unspecified, not intractable, without status epilepticus; E11.65 Type 2 diabetes mellitus with hyperglycemia; E78.5 Hyperlipidemia, unspecified; R33.9 Retention of urine, unspecified; Z93.0 Tracheostomy status; Z79.82 Long term (current) use of aspirin; Z79.4 Long term (current) use of insulin; Z79.899 Other long term (current) drug therapy; Z98.890 Other specified postprocedural states; Z90.49 Acquired absence of other specified parts of digestive tract; Z93.3 Colostomy status; Z87.891 Personal history of nicotine dependence; Z68.34 Body mass index [BMI] 34.0-34.9, adult; Z91.199 Patient's noncompliance with other medical treatment and regimen due to unspecified reason; Z78.1 Physical restraint status; Z79.51 Long term (current) use of inhaled steroids; E87.6 Hypokalemia; Z91.148 Patient's other noncompliance with medication regimen for other reason
CPT/HCPCS: 31502; 36415; 36416; 36430; 36600; 71045; 74018; 80048; 80202; 82040; 82805; 83605; 83735; 83930; 83935; 84100; 84145; 84300; 85014; 85018; 85025; 86850; 86900; 86901; 87040; 87081; 93005; 94003; 94640; 94760; 96365; 96366; C9113; J0692; J1120; J1650; J1815; J1940; J1953; J2060; J2597; J2920; J3370; J3370-JW; J3475; J3490; J7042; J7050; J7070; J7509; J7608; J7620; P9016

== ENCOUNTER 2023-08-27 11:00 | Outpatient (CLI) | payer OTHER | END 2023-08-27 11:01 | disposition home or self-care (01) | LOC: PET 11:00 | PROVIDERS: ATTEND Internal Medicine Hematology & Oncology | DX: C96.0 Multifocal and multisystemic (disseminated) Langerhans-cell histiocytosis (principal) | CPT/HCPCS: 78815; A9552 ==

== ENCOUNTER 2023-08-28 15:34 | Emergency (ER) | payer OTHER ==
[2023-08-28 16:54] LABS: Bilirubin Negative (Negative); Blood, Urine 3+ (Negative); CAUTI Indications for Culture Dysuria,urgency,freq; Clarity Extra Turbid (Clear); Glucose, Urine (Dipstick) >=1000 mg/dL (Negative); Ketone, Urine Negative (Negative); Leukocyte 500 Leu/uL (Negative); Nitrite Negative (Negative); Protein, Urine (Dipstick) 100 mg/dL (Neg-Trace); Specific Gravity, Urine 1.022 (1.002-1.036); Squamous Epithelial None Seen HPF (0-3); Urobilinogen Normal mg/dL (Less than 2); WBC/HPF Greater than 50 HPF (0-3); pH, Urine 7.5 (5.0-9.0)
[2023-08-28 17:03] LABS: Bacteria/HPF 3+ HPF (None Seen); Unclassified Crystals 1+ HPF (None Seen)
[2023-08-28 17:05] LABS: Urine Culture Reflex Yes Yes
== END 2023-08-28 17:46 | disposition home or self-care (01) ==
LOC: ERS 15:34
DX: K94.23 Gastrostomy malfunction (principal); E78.5 Hyperlipidemia, unspecified; Z87.891 Personal history of nicotine dependence
CPT/HCPCS: 43762; 74018; 81001; 87077; 87086; 87186

== ENCOUNTER 2023-11-06 22:36 | Inpatient (IN) | payer OTHER ==
[2023-11-07 00:34] LABS: #Monocytes 0.3 thou/uL (0.11-0.59); #Neutrophils 3.8 thou/uL (1.40-6.50); %Basophils 0.3 % (0.0-1.0); %Eosinophils 0.3 % (0.0-10.0); %Monocytes 4.8 % (0.0-10.0); %Neutrophils 65.3 % (42.0-75.0); Hematocrit 34.4 % (42.0-52.0); Hemoglobin 10.2 g/dL (14.0-18.0); Mean Corpuscular HGB CONC 29.7 g/dL (32.0-36.0); Mean Corpuscular Hemoglobin 27.7 pg (27.0-31.0); Mean Corpuscular Volume 93.5 fl (78.0-98.0); Mean Platelet Volume 9.8 fL (7.4-10.4); Platelet Count 124 10x3/uL (130-400); RBC Distribution Width 15.6 % (11.5-14.5); Red Blood Cell (RBC) Count 3.68 mill/uL (4.70-6.10); White Blood Cell (WBC) Count 5.9 10x3/uL (4.8-10.8)
[2023-11-07 00:39] LABS: Actual Bicarbonate (HCO3a) 35.3 mEq/L (22-28); Analyzer IN Cardio ER; Calcium, Ionized (arterial) 1.14 mmol/L (1.12-1.30); Hematocrit-ABG 35 % (42.0-52.0); Hemoglobin (Hb) 11.8 g/dL (14.0-18.0); Potassium - ABG Lab 3.14 mmol/L (3.70-5.30); pH, Arterial 7.313 (7.35-7.45)
[2023-11-07 00:44] LABS: CO2 Tension 71.2 mmHg (35.0-45.0); O2 Tension (PaO2), arterial 53.2 mmHg (80.0-100.0)
[2023-11-07 00:45] LABS: Puncture Site LBA
[2023-11-07 01:04] LABS: Troponin I Less than 0.010 ng/mL (< 0.028)
[2023-11-07 01:27] LABS: ALT (SGPT) 14 U/L (8-55); AST (SGOT) 21 U/L (5-34); Albumin 2.7 g/dL (3.5-5.0); Alkaline Phosphatase 147 U/L (40-110); Anion Gap 16 mmol/L (10-20); BUN (Urea Nitrogen) 13 mg/dL (8.4-25.7); Bilirubin, Total 0.2 mg/dL (0.2-1.2); Calc. Creatinine Clearance 0 mL/min (70-130); Calcium 7.9 mg/dL (7.8-10.44); Carbon Dioxide 33 mmol/L (22-29); Chloride 105 mmol/L (98-107); Estimated GFR 108; Globulin 4.2 g/dL (2.4-3.5); Glucose 129 mg/dL (70-105); Potassium 3.1 mmol/L (3.5-5.1); Protein, Total 6.9 g/dL (6.0-8.3)
[2023-11-07 01:31] LABS: Critical Call Chemistry NUR.VJP@0131; Sodium 151 mmol/L (136-145)
[2023-11-07] MEDS ORDERED: Ondansetron PF 4 MG/2 ML Vial IVP PRN (02:36)
[2023-11-07] MEDS ORDERED: Ipratropium/Albuterol 3 ML NEB NEB PRN (04:25)
[2023-11-07] MEDS ORDERED: Nystatin Powder 15 GM BOT TOP PRN (04:26)
[2023-11-07] MEDS ORDERED: Sodium Chloride 0.45% 1,000 ML IV SCH (04:30)
[2023-11-07] MEDS ORDERED: Potassium Chloride 20 MEQ TAB PER TUBE SCH (04:30)
[2023-11-07] MEDS ORDERED: Electrolyte Replacement Protocol 1 EACH FS PRN (04:38)
[2023-11-07] MEDS ORDERED: Dextrose 5% in Water 1,000 ML IV PRN (04:39)
[2023-11-07] MEDS ORDERED: Glucagon 1 MG/ML KIT IM PRN (04:39)
[2023-11-07] MEDS: methylPREDNISolone Sod Succ 40 MG VIAL IVP SCH ×3 (05:11→19:34)
[2023-11-07] MEDS ORDERED: Potassium Bicarbonate/Cit Ac 20 MEQ TAB PER TUBE SCH (05:30)
[2023-11-07 06:15] LABS: #Monocytes 0.1 thou/uL (0.11-0.59); #Neutrophils 3.7 thou/uL (1.40-6.50); %Monocytes 1.4 % (0.0-10.0); %Neutrophils 85.1 % (42.0-75.0); Hematocrit 35.4 % (42.0-52.0); Hemoglobin 10.4 g/dL (14.0-18.0); Mean Corpuscular HGB CONC 29.4 g/dL (32.0-36.0); Mean Corpuscular Hemoglobin 27.8 pg (27.0-31.0); Mean Corpuscular Volume 94.7 fl (78.0-98.0); Mean Platelet Volume 9.5 fL (7.4-10.4); Platelet Count 124 10x3/uL (130-400); RBC Distribution Width 15.6 % (11.5-14.5); Red Blood Cell (RBC) Count 3.74 mill/uL (4.70-6.10); White Blood Cell (WBC) Count 4.4 10x3/uL (4.8-10.8)
[2023-11-07 06:29] LABS: CRP (Inflammatory) 13.47 mg/dL (= or < 0.5); Magnesium 2.2 mg/dL (1.6-2.6)
[2023-11-07 06:42] LABS: ALT (SGPT) 13 U/L (8-55); AST (SGOT) 19 U/L (5-34); Albumin 2.8 g/dL (3.5-5.0); Alkaline Phosphatase 142 U/L (40-110); Anion Gap 17 mmol/L (10-20); BUN (Urea Nitrogen) 11 mg/dL (8.4-25.7); Bilirubin, Total 0.2 mg/dL (0.2-1.2); Calc. Creatinine Clearance 133 mL/min (70-130); Calcium 8.5 mg/dL (7.8-10.44); Carbon Dioxide 33 mmol/L (22-29); Chloride 107 mmol/L (98-107); Estimated GFR 112; Globulin 4.6 g/dL (2.4-3.5); Glucose 123 mg/dL (70-105); Potassium 3.5 mmol/L (3.5-5.1); Protein, Total 7.4 g/dL (6.0-8.3)
[2023-11-07 06:49] LABS: Critical Call Chemistry ICU.TMC@0649; Sodium 153 mmol/L (136-145)
[2023-11-07] MEDS: Ipratropium/Albuterol 3 ML NEB NEB SCH ×5 (08:03→23:44)
[2023-11-07] MEDS: Mometasone 200 MCG/Formoterol 5 MCG 120 PUFF INHALER INH SCH ×2 (08:04→20:10)
[2023-11-07] MEDS: Fluconazole In NaCl,Iso-Osm 200 MG in Premix 1 BAG IVPB SCH (09:00)
[2023-11-07] MEDS ORDERED: Enoxaparin 30 MG (0.3 mL) SYRINGE SC SCH (09:00)
[2023-11-07] MEDS ORDERED: Enoxaparin 40 MG (0.4 mL) SYRINGE SC SCH (09:00)
[2023-11-07] MEDS: Nystatin 500,000 UNITS/5 ML UDCUP SSW SCH ×4 (09:49→21:25)
[2023-11-07] MEDS: Famotidine 20 MG TAB PER TUBE SCH ×2 (09:49→21:17)
[2023-11-07] MEDS: levETIRAcetam 500 mg/5 ml Oral Solution PER TUBE SCH ×2 (09:49→21:15)
[2023-11-07 13:03] LABS: Potassium 4.1 mmol/L (3.5-5.1)
[2023-11-07 22:41] LABS: Actual Bicarbonate (HCO3a) 40.1 mEq/L (22-28); Base Excess (BEa) 7.7 mEq/L (-2.0 to +3.0); Calcium, Ionized (arterial) 1.16 mmol/L (1.12-1.30); Carboxyhemoglobin (COHb) 0.9 gm% (0.0-3.0); Hematocrit-ABG 34 % (42.0-52.0); Hemoglobin (Hb) 11.5 g/dL (14.0-18.0); O2 Tension (PaO2), arterial 86.2 mmHg (80.0-100.0); Potassium - ABG Lab 3.19 mmol/L (3.70-5.30)
[2023-11-07 22:45] LABS: Puncture Site LRA
[2023-11-07 23:40] LABS: #Monocytes 0.2 thou/uL (0.11-0.59); %Lymphocytes 6.5 % (21.0-51.0); %Monocytes 3.4 % (0.0-10.0); %Neutrophils 89.7 % (42.0-75.0); Hematocrit 37.1 % (42.0-52.0); Hemoglobin 10.7 g/dL (14.0-18.0); Mean Corpuscular HGB CONC 28.8 g/dL (32.0-36.0); Mean Corpuscular Volume 97.1 fl (78.0-98.0); Mean Platelet Volume 8.9 fL (7.4-10.4); Platelet Count 115 10x3/uL (130-400); RBC Distribution Width 15.9 % (11.5-14.5); Red Blood Cell (RBC) Count 3.82 mill/uL (4.70-6.10); White Blood Cell (WBC) Count 4.5 10x3/uL (4.8-10.8)
[2023-11-07 23:57] LABS: Lactic Acid 2.4 mmol/L (0.5-2.2)
[2023-11-08 00:07] LABS: ALT (SGPT) 12 U/L (8-55); AST (SGOT) 17 U/L (5-34); Albumin 2.9 g/dL (3.5-5.0); Alkaline Phosphatase 137 U/L (40-110); Anion Gap 19 mmol/L (10-20); BUN (Urea Nitrogen) 16 mg/dL (8.4-25.7); Bilirubin, Total 0.2 mg/dL (0.2-1.2); Calc. Creatinine Clearance 113 mL/min (70-130); Calcium 8.7 mg/dL (7.8-10.44); Carbon Dioxide 33 mmol/L (22-29); Chloride 107 mmol/L (98-107); Estimated GFR 106; Globulin 4.9 g/dL (2.4-3.5); Glucose 225 mg/dL (70-105); Potassium 4.7 mmol/L (3.5-5.1); Protein, Total 7.8 g/dL (6.0-8.3)
[2023-11-08 00:23] LABS: Critical Call Chemistry R EHAB.JMB@0023; Sodium 154 mmol/L (136-145)
[2023-11-08] MEDS: methylPREDNISolone Sod Succ 40 MG VIAL IVP SCH ×3 (00:46→17:57)
[2023-11-08] MEDS: HumaLOG 300 UNITS/3 ML VIAL SC PRN ×3 (00:51→16:05)
[2023-11-08 00:55] LABS: Actual Bicarbonate (HCO3a) 33.3 mEq/L (22-28); Base Excess (BEa) 8.7 mEq/L (-2.0 to +3.0); CO2 Tension 46.2 mmHg (35.0-45.0); Carboxyhemoglobin (COHb) 0.2 gm% (0.0-3.0); Hematocrit-ABG 32 % (42.0-52.0); Hemoglobin (Hb) 10.9 g/dL (14.0-18.0); O2 Tension (PaO2), arterial 105.8 mmHg (80.0-100.0); Potassium - ABG Lab 4.04 mmol/L (3.70-5.30); pH, Arterial 7.476 (7.35-7.45)
[2023-11-08 01:00] LABS: Puncture Site RRA
[2023-11-08] MEDS ORDERED: Lactated Ringer's 1,000 ML IV SCH (01:00)
[2023-11-08] MEDS: Ipratropium/Albuterol 3 ML NEB NEB SCH ×6 (03:06→23:39)
[2023-11-08 08:10] LABS: #Monocytes 0.3 thou/uL (0.11-0.59); %Monocytes 5.4 % (0.0-10.0); %Neutrophils 79.2 % (42.0-75.0); Hematocrit 30.2 % (42.0-52.0); Mean Corpuscular HGB CONC 29.8 g/dL (32.0-36.0); Mean Platelet Volume 10.4 fL (7.4-10.4); Platelet Count 101 10x3/uL (130-400); RBC Distribution Width 15.5 % (11.5-14.5); Red Blood Cell (RBC) Count 3.21 mill/uL (4.70-6.10)
[2023-11-08] MEDS: Mometasone 200 MCG/Formoterol 5 MCG 120 PUFF INHALER INH SCH ×2 (08:10→19:37)
[2023-11-08 08:12] LABS: Mean Corpuscular Volume 94.1 fl (78.0-98.0)
[2023-11-08 08:17] LABS: Lactic Acid 1.9 mmol/L (0.5-2.2)
[2023-11-08 08:31] LABS: CRP (Inflammatory) 8.15 mg/dL (= or < 0.5); Magnesium 2.1 mg/dL (1.6-2.6)
[2023-11-08 08:35] LABS: ALT (SGPT) 11 U/L (8-55); AST (SGOT) 14 U/L (5-34); Albumin 2.6 g/dL (3.5-5.0); Alkaline Phosphatase 109 U/L (40-110); Anion Gap 15 mmol/L (10-20); BUN (Urea Nitrogen) 19 mg/dL (8.4-25.7); Bilirubin, Total 0.2 mg/dL (0.2-1.2); Calc. Creatinine Clearance 121 mL/min (70-130); Calcium 8.3 mg/dL (7.8-10.44); Carbon Dioxide 30 mmol/L (22-29); Chloride 108 mmol/L (98-107); Estimated GFR 107; Glucose 129 mg/dL (70-105); Potassium 3.6 mmol/L (3.5-5.1); Protein, Total 6.6 g/dL (6.0-8.3); Sodium 149 mmol/L (136-145)
[2023-11-08] MEDS: levETIRAcetam 500 mg/5 ml Oral Solution PER TUBE SCH ×2 (08:36→20:35)
[2023-11-08] MEDS: Fluconazole In NaCl,Iso-Osm 200 MG in Premix 1 BAG IVPB SCH (08:36)
[2023-11-08] MEDS: Famotidine 20 MG TAB PER TUBE SCH ×2 (08:36→20:36)
[2023-11-08] MEDS: Dextrose 5% in Water 1,000 ML IV SCH ×2 (08:36→21:46)
[2023-11-08] MEDS: Nystatin 500,000 UNITS/5 ML UDCUP SSW SCH ×4 (08:37→20:35)
[2023-11-08] MEDS: Enoxaparin 40 MG (0.4 mL) SYRINGE SC SCH (08:40)
[2023-11-08] MEDS: Acetaminophen 325 MG TAB PO PRN (14:12)
[2023-11-09] MEDS: Ipratropium/Albuterol 3 ML NEB NEB SCH ×6 (02:43→22:37)
[2023-11-09 04:41] LABS: #Monocytes 0.2 thou/uL (0.11-0.59); #Neutrophils 4.2 thou/uL (1.40-6.50); %Lymphocytes 9.2 % (21.0-51.0); %Monocytes 3.7 % (0.0-10.0); %Neutrophils 86.5 % (42.0-75.0); Hematocrit 28.5 % (42.0-52.0); Hemoglobin 8.4 g/dL (14.0-18.0); Mean Corpuscular HGB CONC 29.5 g/dL (32.0-36.0); Mean Corpuscular Hemoglobin 27.5 pg (27.0-31.0); Mean Corpuscular Volume 93.4 fl (78.0-98.0); Mean Platelet Volume 9.9 fL (7.4-10.4); Red Blood Cell (RBC) Count 3.05 mill/uL (4.70-6.10); White Blood Cell (WBC) Count 4.9 10x3/uL (4.8-10.8)
[2023-11-09 04:43] LABS: Platelet Count 87 10x3/uL (130-400)
[2023-11-09] MEDS: methylPREDNISolone Sod Succ 40 MG VIAL IVP SCH ×2 (05:16→17:27)
[2023-11-09 05:24] LABS: ALT (SGPT) 10 U/L (8-55); AST (SGOT) 15 U/L (5-34); Albumin 2.6 g/dL (3.5-5.0); Alkaline Phosphatase 102 U/L (40-110); Anion Gap 11 mmol/L (10-20); BUN (Urea Nitrogen) 23 mg/dL (8.4-25.7); Bilirubin, Total Less than 0.2 mg/dL (0.2-1.2); Calc. Creatinine Clearance 131 mL/min (70-130); Carbon Dioxide 35 mmol/L (22-29); Chloride 101 mmol/L (98-107); Estimated GFR 110; Globulin 3.8 g/dL (2.4-3.5); Glucose 208 mg/dL (70-105); Potassium 2.7 mmol/L (3.5-5.1); Protein, Total 6.4 g/dL (6.0-8.3); Sodium 144 mmol/L (136-145)
[2023-11-09] MEDS: HumaLOG 300 UNITS/3 ML VIAL SC PRN ×4 (05:24→23:25)
[2023-11-09] MEDS: Potassium Bicarbonate/Cit Ac 20 MEQ TAB PER TUBE SCH ×2 (08:21→12:19)
[2023-11-09] MEDS: Nystatin 500,000 UNITS/5 ML UDCUP SSW SCH ×4 (08:21→20:57)
[2023-11-09] MEDS: Famotidine 20 MG TAB PER TUBE SCH ×2 (08:21→20:56)
[2023-11-09] MEDS: levETIRAcetam 500 mg/5 ml Oral Solution PER TUBE SCH ×2 (08:21→20:56)
[2023-11-09] MEDS: Mometasone 200 MCG/Formoterol 5 MCG 120 PUFF INHALER INH SCH ×2 (08:36→19:37)
[2023-11-09] MEDS: Enoxaparin 40 MG (0.4 mL) SYRINGE SC SCH (08:41)
[2023-11-09] MEDS: Fluconazole 100 MG TAB PER TUBE SCH (09:50)
[2023-11-09 11:05] LABS: CO2 Tension 118.2 mmHg (35.0-45.0); pH, Arterial 7.148 (7.35-7.45)
[2023-11-09] MEDS: Dextrose 5% in Water 1,000 ML IV SCH (12:17)
[2023-11-09] MEDS ORDERED: Potassium Chloride 20 MEQ TAB PO SCH ×2 (12:30)
[2023-11-09 16:45] LABS: Potassium 3.7 mmol/L (3.5-5.1)
[2023-11-09] MEDS: Acetaminophen 325 MG TAB PO PRN (20:56)
[2023-11-09] MEDS: Nystatin Cream 30 GM TUBE TOP SCH (20:57)
[2023-11-10] MEDS: Dextrose 5% in Water 1,000 ML IV SCH (01:11)
[2023-11-10] MEDS: Ipratropium/Albuterol 3 ML NEB NEB SCH ×6 (01:47→22:40)
[2023-11-10] MEDS: HumaLOG 300 UNITS/3 ML VIAL SC PRN ×4 (03:30→22:25)
[2023-11-10 03:46] LABS: Hematocrit 26.6 % (42.0-52.0); Hemoglobin 8.1 g/dL (14.0-18.0); Mean Corpuscular HGB CONC 30.5 g/dL (32.0-36.0); Mean Corpuscular Hemoglobin 27.6 pg (27.0-31.0); Mean Corpuscular Volume 90.8 fl (78.0-98.0); Mean Platelet Volume 9.5 fL (7.4-10.4); RBC Distribution Width 15.7 % (11.5-14.5); Red Blood Cell (RBC) Count 2.93 mill/uL (4.70-6.10); White Blood Cell (WBC) Count 4.7 10x3/uL (4.8-10.8)
[2023-11-10 03:47] LABS: #Monocytes 0.2 thou/uL (0.11-0.59); #Neutrophils 3.9 thou/uL (1.40-6.50); %Lymphocytes 11.1 % (21.0-51.0); %Monocytes 4.7 % (0.0-10.0); %Neutrophils 82.9 % (42.0-75.0)
[2023-11-10 03:54] LABS: Platelet Count 79 10x3/uL (130-400)
[2023-11-10 04:13] LABS: Anion Gap 11 mmol/L (10-20); BUN (Urea Nitrogen) 25 mg/dL (8.4-25.7); Calc. Creatinine Clearance 138 mL/min (70-130); Calcium 7.7 mg/dL (7.8-10.44); Carbon Dioxide 33 mmol/L (22-29); Chloride 96 mmol/L (98-107); Estimated GFR 112; Glucose 213 mg/dL (70-105); Potassium 3.4 mmol/L (3.5-5.1); Sodium 137 mmol/L (136-145)
[2023-11-10] MEDS ORDERED: Electrolyte Replacement Protocol FS PRN (06:30)
[2023-11-10] MEDS: Potassium Chloride 20 MEQ in Premix 1 BAG IVPB SCH ×2 (06:38→08:24)
[2023-11-10] MEDS: methylPREDNISolone Sod Succ 40 MG VIAL IVP SCH ×2 (06:38→16:23)
[2023-11-10] MEDS: Mometasone 200 MCG/Formoterol 5 MCG 120 PUFF INHALER INH SCH ×2 (07:48→18:55)
[2023-11-10] MEDS: Nystatin 500,000 UNITS/5 ML UDCUP SSW SCH ×4 (08:23→20:12)
[2023-11-10] MEDS: levETIRAcetam 500 mg/5 ml Oral Solution PER TUBE SCH ×2 (08:24→20:12)
[2023-11-10] MEDS: Insulin Glargine 30 UNITS/0.3 ML VIAL SC SCH (08:25)
[2023-11-10] MEDS: Fluconazole 100 MG TAB PER TUBE SCH (08:25)
[2023-11-10] MEDS ORDERED: FLU VACC QS2023-24(6MOS UP)/PF 60 MCG/0.5 ML SYRINGE IM ONE (09:00)
[2023-11-10] MEDS: Enoxaparin 40 MG (0.4 mL) SYRINGE SC SCH (09:53)
[2023-11-10] MEDS: Famotidine 20 MG TAB PER TUBE SCH (09:53)
[2023-11-10] MEDS: Nystatin Cream 30 GM TUBE TOP SCH ×2 (09:54→20:14)
[2023-11-10 13:33] LABS: Potassium 3.7 mmol/L (3.5-5.1)
[2023-11-10] MEDS: Acetaminophen 325 MG TAB PO PRN (20:13)
[2023-11-11] MEDS: Ipratropium/Albuterol 3 ML NEB NEB SCH ×6 (02:57→22:34)
[2023-11-11] MEDS: HumaLOG 300 UNITS/3 ML VIAL SC PRN ×3 (03:57→16:07)
[2023-11-11 04:12] LABS: #Monocytes 0.3 thou/uL (0.11-0.59); %Lymphocytes 10.3 % (21.0-51.0); %Monocytes 4.9 % (0.0-10.0); %Neutrophils 84.1 % (42.0-75.0); Hematocrit 29.5 % (42.0-52.0); Hemoglobin 8.8 g/dL (14.0-18.0); Mean Corpuscular HGB CONC 29.8 g/dL (32.0-36.0); Mean Corpuscular Hemoglobin 27.2 pg (27.0-31.0); Mean Corpuscular Volume 91.3 fl (78.0-98.0); Mean Platelet Volume 9.7 fL (7.4-10.4); RBC Distribution Width 15.7 % (11.5-14.5); Red Blood Cell (RBC) Count 3.23 mill/uL (4.70-6.10)
[2023-11-11 04:30] LABS: Platelet Count 82 10x3/uL (130-400)
[2023-11-11 04:31] LABS: Anion Gap 12 mmol/L (10-20); BUN (Urea Nitrogen) 24 mg/dL (8.4-25.7); Calc. Creatinine Clearance 147 mL/min (70-130); Calcium 7.9 mg/dL (7.8-10.44); Carbon Dioxide 36 mmol/L (22-29); Chloride 98 mmol/L (98-107); Estimated GFR 113; Glucose 234 mg/dL (70-105); Phosphorus 2.6 mg/dL (2.3-4.7); Potassium 3.7 mmol/L (3.5-5.1); Sodium 142 mmol/L (136-145)
[2023-11-11] MEDS: methylPREDNISolone Sod Succ 40 MG VIAL IVP SCH ×2 (05:54→18:23)
[2023-11-11] MEDS: Mometasone 200 MCG/Formoterol 5 MCG 120 PUFF INHALER INH SCH ×2 (07:14→18:38)
[2023-11-11] MEDS: levETIRAcetam 500 mg/5 ml Oral Solution PER TUBE SCH ×2 (07:47→19:39)
[2023-11-11] MEDS: Nystatin 500,000 UNITS/5 ML UDCUP SSW SCH ×4 (07:47→19:39)
[2023-11-11] MEDS: Insulin Glargine 30 UNITS/0.3 ML VIAL SC SCH ×2 (07:48→19:39)
[2023-11-11] MEDS: Fluconazole 100 MG TAB PER TUBE SCH (07:48)
[2023-11-11] MEDS: Pantoprazole 40 MG VIAL IVP SCH (07:49)
[2023-11-11] MEDS ORDERED: Magnesium 2 GM/50 ML(in water) 2 GM in Premix 1 BAG IVPB SCH (08:00)
[2023-11-11] MEDS: Nystatin Cream 30 GM TUBE TOP SCH ×2 (08:19→19:39)
[2023-11-12] MEDS: HumaLOG 300 UNITS/3 ML VIAL SC PRN ×3 (00:36→12:54)
[2023-11-12] MEDS: Ipratropium/Albuterol 3 ML NEB NEB SCH ×6 (03:18→21:37)
[2023-11-12 04:02] LABS: #Monocytes 0.2 thou/uL (0.11-0.59); #Neutrophils 3.9 thou/uL (1.40-6.50); %Basophils 0.2 % (0.0-1.0); %Lymphocytes 10.5 % (21.0-51.0); %Monocytes 4.3 % (0.0-10.0); %Neutrophils 84.4 % (42.0-75.0); Hematocrit 31.5 % (42.0-52.0); Hemoglobin 9.2 g/dL (14.0-18.0); Mean Corpuscular HGB CONC 29.2 g/dL (32.0-36.0); Mean Corpuscular Hemoglobin 27.3 pg (27.0-31.0); Mean Corpuscular Volume 93.5 fl (78.0-98.0); Mean Platelet Volume 10.5 fL (7.4-10.4); RBC Distribution Width 15.9 % (11.5-14.5); Red Blood Cell (RBC) Count 3.37 mill/uL (4.70-6.10); White Blood Cell (WBC) Count 4.7 10x3/uL (4.8-10.8)
[2023-11-12 04:22] LABS: BUN (Urea Nitrogen) 22 mg/dL (8.4-25.7); Calc. Creatinine Clearance 157 mL/min (70-130); Estimated GFR 116; Glucose 187 mg/dL (70-105)
[2023-11-12] MEDS: methylPREDNISolone Sod Succ 40 MG VIAL IVP SCH ×2 (05:10→18:09)
[2023-11-12 05:11] LABS: Platelet Count 67 10x3/uL (130-400)
[2023-11-12 05:12] LABS: Anion Gap 13 mmol/L (10-20); Carbon Dioxide 36 mmol/L (22-29); Chloride 104 mmol/L (98-107); Sodium 149 mmol/L (136-145)
[2023-11-12] MEDS: Mometasone 200 MCG/Formoterol 5 MCG 120 PUFF INHALER INH SCH ×2 (07:06→18:51)
[2023-11-12] MEDS: Nystatin 500,000 UNITS/5 ML UDCUP SSW SCH ×4 (08:36→20:50)
[2023-11-12] MEDS: levETIRAcetam 500 mg/5 ml Oral Solution PER TUBE SCH ×2 (08:36→20:50)
[2023-11-12] MEDS: Fluconazole 100 MG TAB PER TUBE SCH (08:36)
[2023-11-12] MEDS: Insulin Glargine 30 UNITS/0.3 ML VIAL SC SCH ×2 (08:37→20:50)
[2023-11-12] MEDS: Pantoprazole 40 MG VIAL IVP SCH (08:38)
[2023-11-12] MEDS: Nystatin Cream 30 GM TUBE TOP SCH ×2 (08:40→20:51)
[2023-11-12] MEDS: Enoxaparin 40 MG (0.4 mL) SYRINGE SC SCH (08:51)
[2023-11-12 15:59] LABS: Anion Gap 15 mmol/L (10-20); Carbon Dioxide 37 mmol/L (22-29); Chloride 104 mmol/L (98-107); Potassium 3.7 mmol/L (3.5-5.1)
[2023-11-12 16:04] LABS: ALT (SGPT) 10 U/L (8-55); AST (SGOT) 13 U/L (5-34); Albumin 2.8 g/dL (3.5-5.0); Alkaline Phosphatase 96 U/L (40-110); BUN (Urea Nitrogen) 25 mg/dL (8.4-25.7); Bilirubin, Total 0.2 mg/dL (0.2-1.2); Calc. Creatinine Clearance 145 mL/min (70-130); Calcium 8.3 mg/dL (7.8-10.44); Critical Call Chemistry ICU.VW @1604; Estimated GFR 113; Globulin 3.9 g/dL (2.4-3.5); Glucose 185 mg/dL (70-105); Magnesium 2.6 mg/dL (1.6-2.6); Phosphorus 3.6 mg/dL (2.3-4.7); Protein, Total 6.7 g/dL (6.0-8.3); Sodium 152 mmol/L (136-145)
[2023-11-13] MEDS: HumaLOG 300 UNITS/3 ML VIAL SC PRN ×2 (00:15→23:17)
[2023-11-13] MEDS: Ipratropium/Albuterol 3 ML NEB NEB SCH ×6 (02:51→22:00)
[2023-11-13] MEDS: Lorazepam 2 MG/ML VIAL SLOW IVP PRN ×2 (03:15→11:45)
[2023-11-13 04:29] LABS: #Monocytes 0.2 thou/uL (0.11-0.59); #Neutrophils 3.8 thou/uL (1.40-6.50); %Lymphocytes 11.1 % (21.0-51.0); %Monocytes 5.2 % (0.0-10.0); %Neutrophils 82.8 % (42.0-75.0); Hematocrit 29.9 % (42.0-52.0); Hemoglobin 8.9 g/dL (14.0-18.0); Mean Corpuscular HGB CONC 29.8 g/dL (32.0-36.0); Mean Corpuscular Hemoglobin 27.4 pg (27.0-31.0); Mean Platelet Volume 8.9 fL (7.4-10.4); Red Blood Cell (RBC) Count 3.25 mill/uL (4.70-6.10); White Blood Cell (WBC) Count 4.6 10x3/uL (4.8-10.8)
[2023-11-13 04:52] LABS: BUN (Urea Nitrogen) 31 mg/dL (8.4-25.7); Calc. Creatinine Clearance 168 mL/min (70-130); Calcium 7.9 mg/dL (7.8-10.44); Estimated GFR 118; Glucose 73 mg/dL (70-105)
[2023-11-13 04:53] LABS: Platelet Count 64 10x3/uL (130-400)
[2023-11-13 05:01] LABS: Anion Gap 13 mmol/L (10-20); Carbon Dioxide 37 mmol/L (22-29); Chloride 104 mmol/L (98-107); Potassium 3.5 mmol/L (3.5-5.1); Sodium 150 mmol/L (136-145)
[2023-11-13] MEDS: methylPREDNISolone Sod Succ 40 MG VIAL IVP SCH ×2 (06:14→18:19)
[2023-11-13] MEDS: Mometasone 200 MCG/Formoterol 5 MCG 120 PUFF INHALER INH SCH (07:50)
[2023-11-13] MEDS ORDERED: Potassium Bicarbonate/Cit Ac 20 MEQ TAB PER TUBE SCH ×2 (08:00→22:00)
[2023-11-13] MEDS: Lansoprazole 15 MG/5 ML (BATCHED)UDCUP PER TUBE SCH (08:57)
[2023-11-13] MEDS: Insulin Glargine 30 UNITS/0.3 ML VIAL SC SCH ×2 (08:57→20:03)
[2023-11-13] MEDS: levETIRAcetam 500 mg/5 ml Oral Solution PER TUBE SCH ×2 (08:57→20:03)
[2023-11-13] MEDS: Nystatin 500,000 UNITS/5 ML UDCUP SSW SCH ×4 (08:57→20:03)
[2023-11-13] MEDS: Fluconazole 100 MG TAB PER TUBE SCH (08:57)
[2023-11-13] MEDS: Nystatin Cream 30 GM TUBE TOP SCH ×2 (08:58→20:03)
[2023-11-13] MEDS ORDERED: Dexmedetomidine In 0.9 % NaCl 100 ML IVPB SCH (11:15)
[2023-11-13] MEDS: Dexmedetomidine 400 MCG, Admixture Fee 1 EACH in Sodium Chloride 0.9% 96 ML IVPB SCH (11:47)
[2023-11-13 15:05] LABS: Potassium 3.5 mmol/L (3.5-5.1)
[2023-11-14] MEDS: Dexmedetomidine 400 MCG, Admixture Fee 1 EACH in Sodium Chloride 0.9% 96 ML IVPB SCH (02:08)
[2023-11-14] MEDS: Ipratropium/Albuterol 3 ML NEB NEB SCH ×6 (02:32→21:58)
[2023-11-14 04:09] LABS: #Monocytes 0.1 thou/uL (0.11-0.59); #Neutrophils 2.7 thou/uL (1.40-6.50); %Lymphocytes 10.9 % (21.0-51.0); %Monocytes 2.6 % (0.0-10.0); %Neutrophils 85.5 % (42.0-75.0); Hematocrit 31.8 % (42.0-52.0); Hemoglobin 9.1 g/dL (14.0-18.0); Mean Corpuscular HGB CONC 28.6 g/dL (32.0-36.0); Mean Corpuscular Hemoglobin 27.2 pg (27.0-31.0); Mean Platelet Volume 8.6 fL (7.4-10.4); RBC Distribution Width 16.3 % (11.5-14.5); Red Blood Cell (RBC) Count 3.35 mill/uL (4.70-6.10); White Blood Cell (WBC) Count 3.1 10x3/uL (4.8-10.8)
[2023-11-14 04:26] LABS: BUN (Urea Nitrogen) 39 mg/dL (8.4-25.7); Calc. Creatinine Clearance 155 mL/min (70-130); Estimated GFR 115; Glucose 263 mg/dL (70-105)
[2023-11-14 04:35] LABS: Anion Gap 15 mmol/L (10-20); Carbon Dioxide 36 mmol/L (22-29); Chloride 102 mmol/L (98-107); Potassium 4.7 mmol/L (3.5-5.1); Sodium 148 mmol/L (136-145)
[2023-11-14] MEDS: HumaLOG 300 UNITS/3 ML VIAL SC PRN ×3 (04:48→16:33)
[2023-11-14] MEDS: methylPREDNISolone Sod Succ 40 MG VIAL IVP SCH ×2 (05:38→16:46)
[2023-11-14 06:03] LABS: Mean Corpuscular Volume 94.9 fl (78.0-98.0); Platelet Count 65 10x3/uL (130-400)
[2023-11-14 07:54] LABS: Anisocytosis SLIGHT = 6-15 cells HPF (0-5); CellaVision Operator ID LAB.CMB; Macrocytosis SLIGHT = 6-15 cells HPF (0-5); Ovalocytes SLIGHT = 2-5 cells HPF (0-1); Platelet Adequacy Comment Platelets Decreased; Polychromasia SLIGHT = 2-3 cells HPF (0-2)
[2023-11-14] MEDS: Mometasone 200 MCG/Formoterol 5 MCG 120 PUFF INHALER INH SCH ×3 (07:54→18:13)
[2023-11-14] MEDS: Nystatin 500,000 UNITS/5 ML UDCUP SSW SCH ×4 (08:09→20:14)
[2023-11-14] MEDS: Fluconazole 100 MG TAB PER TUBE SCH (08:09)
[2023-11-14] MEDS: levETIRAcetam 500 mg/5 ml Oral Solution PER TUBE SCH ×2 (08:09→20:14)
[2023-11-14] MEDS: Lansoprazole 15 MG/5 ML (BATCHED)UDCUP PER TUBE SCH (08:09)
[2023-11-14] MEDS: Insulin Glargine 30 UNITS/0.3 ML VIAL SC SCH ×2 (08:11→20:14)
[2023-11-14] MEDS: Nystatin Cream 30 GM TUBE TOP SCH ×3 (08:13→20:15)
[2023-11-14] MEDS ORDERED: Furosemide 40 MG (4 mL) VIAL SLOW IVP SCH ×2 (10:45→11:00)
[2023-11-14] MEDS: Midodrine HCl 5 MG TAB PO SCH ×2 (11:09→20:14)
[2023-11-14] MEDS: QUEtiapine 25 MG TAB PO SCH (20:14)
[2023-11-15] MEDS: Ipratropium/Albuterol 3 ML NEB NEB SCH ×6 (02:06→22:31)
[2023-11-15] MEDS: methylPREDNISolone Sod Succ 40 MG VIAL IVP SCH (05:22)
[2023-11-15] MEDS: Midodrine HCl 5 MG TAB PO SCH ×3 (05:24→21:39)
[2023-11-15 05:26] LABS: #Monocytes 0.2 thou/uL (0.11-0.59); #Neutrophils 3.5 thou/uL (1.40-6.50); %Lymphocytes 12.3 % (21.0-51.0); %Monocytes 4.1 % (0.0-10.0); %Neutrophils 83.1 % (42.0-75.0); Hematocrit 32.8 % (42.0-52.0); Hemoglobin 9.5 g/dL (14.0-18.0); Mean Corpuscular Hemoglobin 27.1 pg (27.0-31.0); Mean Corpuscular Volume 93.7 fl (78.0-98.0); Mean Platelet Volume 9.6 fL (7.4-10.4); RBC Distribution Width 16.7 % (11.5-14.5); White Blood Cell (WBC) Count 4.2 10x3/uL (4.8-10.8)
[2023-11-15 05:45] LABS: Platelet Count 79 10x3/uL (130-400)
[2023-11-15] MEDS: Mometasone 200 MCG/Formoterol 5 MCG 120 PUFF INHALER INH SCH ×2 (06:42→19:45)
[2023-11-15 06:46] LABS: BUN (Urea Nitrogen) 39 mg/dL (8.4-25.7); Calc. Creatinine Clearance 165 mL/min (70-130); Calcium 8.3 mg/dL (7.8-10.44); Estimated GFR 117
[2023-11-15 06:55] LABS: Anion Gap 17 mmol/L (10-20); Carbon Dioxide 37 mmol/L (22-29); Chloride 102 mmol/L (98-107); Potassium 4.4 mmol/L (3.5-5.1)
[2023-11-15 07:27] LABS: Glucose 53 mg/dL (70-105); Sodium 152 mmol/L (136-145)
[2023-11-15] MEDS: Dextrose 50% Abboject 50 ML SYRINGE SLOW IVP PRN ×3 (07:42→22:50)
[2023-11-15] MEDS: levETIRAcetam 500 mg/5 ml Oral Solution PER TUBE SCH ×2 (10:12→21:40)
[2023-11-15] MEDS: Dextrose 5% in Water 1,000 ML IV SCH (10:12)
[2023-11-15] MEDS: Nystatin 500,000 UNITS/5 ML UDCUP SSW SCH ×4 (10:12→21:40)
[2023-11-15] MEDS: Fluconazole 100 MG TAB PER TUBE SCH (10:12)
[2023-11-15] MEDS: Insulin Glargine 30 UNITS/0.3 ML VIAL SC SCH (10:13)
[2023-11-15] MEDS: Nystatin Cream 30 GM TUBE TOP SCH ×2 (10:13→21:40)
[2023-11-15] MEDS: Lansoprazole 15 MG/5 ML (BATCHED)UDCUP PER TUBE SCH (10:25)
[2023-11-15 16:18] LABS: BUN (Urea Nitrogen) 44 mg/dL (8.4-25.7); Calc. Creatinine Clearance 152 mL/min (70-130); Calcium 8.1 mg/dL (7.8-10.44); Estimated GFR 114
[2023-11-15 16:28] LABS: Anion Gap 18 mmol/L (10-20); Carbon Dioxide 35 mmol/L (22-29); Chloride 100 mmol/L (98-107); Critical Call Chemistry NUR.PLS @1627; Glucose 53 mg/dL (70-105); Potassium 3.5 mmol/L (3.5-5.1); Sodium 147 mmol/L (136-145)
[2023-11-15] MEDS: QUEtiapine 25 MG TAB PO SCH (21:39)
[2023-11-15] MEDS: Dexmedetomidine 400 MCG, Admixture Fee 1 EACH in Sodium Chloride 0.9% 96 ML IVPB SCH (23:07)
[2023-11-16] MEDS: Ipratropium/Albuterol 3 ML NEB NEB SCH ×6 (02:38→22:37)
[2023-11-16 04:24] LABS: #Monocytes 0.3 thou/uL (0.11-0.59); #Neutrophils 3.8 thou/uL (1.40-6.50); %Basophils 0.2 % (0.0-1.0); %Eosinophils 0.4 % (0.0-10.0); %Lymphocytes 25.6 % (21.0-51.0); %Monocytes 5.1 % (0.0-10.0); %Neutrophils 68.5 % (42.0-75.0); Hematocrit 28.9 % (42.0-52.0); Hemoglobin 8.6 g/dL (14.0-18.0); Mean Corpuscular HGB CONC 29.8 g/dL (32.0-36.0); Mean Corpuscular Hemoglobin 27.2 pg (27.0-31.0); Mean Corpuscular Volume 91.5 fl (78.0-98.0); RBC Distribution Width 16.6 % (11.5-14.5); Red Blood Cell (RBC) Count 3.16 mill/uL (4.70-6.10); White Blood Cell (WBC) Count 5.5 10x3/uL (4.8-10.8)
[2023-11-16 04:32] LABS: Platelet Count 82 10x3/uL (130-400)
[2023-11-16 04:46] LABS: BUN (Urea Nitrogen) 41 mg/dL (8.4-25.7); Calc. Creatinine Clearance 168 mL/min (70-130); Calcium 7.5 mg/dL (7.8-10.44); Estimated GFR 118; Glucose 86 mg/dL (70-105)
[2023-11-16 04:55] LABS: Anion Gap 12 mmol/L (10-20); Carbon Dioxide 35 mmol/L (22-29); Chloride 94 mmol/L (98-107); Potassium 3.2 mmol/L (3.5-5.1); Sodium 138 mmol/L (136-145)
[2023-11-16] MEDS: Midodrine HCl 5 MG TAB PO SCH ×3 (05:30→21:31)
[2023-11-16] MEDS: Dextrose 5% in Water 1,000 ML IV SCH (05:31)
[2023-11-16] MEDS: Potassium Chloride 20 MEQ in Premix 1 BAG IVPB SCH ×2 (06:39→08:20)
[2023-11-16] MEDS: Mometasone 200 MCG/Formoterol 5 MCG 120 PUFF INHALER INH SCH ×2 (07:27→18:57)
[2023-11-16] MEDS: Fluconazole 100 MG TAB PER TUBE SCH (08:22)
[2023-11-16] MEDS: Nystatin 500,000 UNITS/5 ML UDCUP SSW SCH ×4 (08:23→21:30)
[2023-11-16] MEDS: predniSONE 20 MG TAB PO SCH (08:23)
[2023-11-16] MEDS: levETIRAcetam 500 mg/5 ml Oral Solution PER TUBE SCH ×2 (08:23→21:30)
[2023-11-16] MEDS: Lansoprazole 15 MG/5 ML (BATCHED)UDCUP PER TUBE SCH (08:23)
[2023-11-16] MEDS: Nystatin Cream 30 GM TUBE TOP SCH ×2 (09:00→21:31)
[2023-11-16] MEDS: QUEtiapine 25 MG TAB PO SCH (21:30)
[2023-11-17] MEDS: Dexmedetomidine 400 MCG, Admixture Fee 1 EACH in Sodium Chloride 0.9% 96 ML IVPB SCH (00:09)
[2023-11-17] MEDS: Dextrose 5% in Water 1,000 ML IV SCH (01:37)
[2023-11-17] MEDS: Ipratropium/Albuterol 3 ML NEB NEB SCH ×6 (02:48→22:47)
[2023-11-17 04:47] LABS: #Monocytes 0.3 thou/uL (0.11-0.59); #Neutrophils 4.8 thou/uL (1.40-6.50); %Eosinophils 0.6 % (0.0-10.0); %Lymphocytes 19.9 % (21.0-51.0); %Monocytes 5.2 % (0.0-10.0); %Neutrophils 73.8 % (42.0-75.0); Hematocrit 28.6 % (42.0-52.0); Hemoglobin 8.8 g/dL (14.0-18.0); Mean Corpuscular HGB CONC 30.8 g/dL (32.0-36.0); Mean Corpuscular Hemoglobin 27.8 pg (27.0-31.0); Mean Corpuscular Volume 90.2 fl (78.0-98.0); Mean Platelet Volume 9.9 fL (7.4-10.4); Platelet Count 97 10x3/uL (130-400); RBC Distribution Width 16.1 % (11.5-14.5); Red Blood Cell (RBC) Count 3.17 mill/uL (4.70-6.10); White Blood Cell (WBC) Count 6.5 10x3/uL (4.8-10.8)
[2023-11-17 05:08] LABS: BUN (Urea Nitrogen) 22 mg/dL (8.4-25.7); Calc. Creatinine Clearance 178 mL/min (70-130); Calcium 7.7 mg/dL (7.8-10.44); Estimated GFR 120; Glucose 154 mg/dL (70-105)
[2023-11-17 05:16] LABS: Chloride 88 mmol/L (98-107); Sodium 130 mmol/L (136-145)
[2023-11-17 05:19] LABS: Anion Gap 14 mmol/L (10-20); Carbon Dioxide 32 mmol/L (22-29)
[2023-11-17] MEDS: Midodrine HCl 5 MG TAB PO SCH ×3 (05:58→21:06)
[2023-11-17] MEDS: Mometasone 200 MCG/Formoterol 5 MCG 120 PUFF INHALER INH SCH ×2 (07:18→19:39)
[2023-11-17] MEDS: levETIRAcetam 500 mg/5 ml Oral Solution PER TUBE SCH ×2 (09:01→21:04)
[2023-11-17] MEDS: predniSONE 20 MG TAB PO SCH (09:01)
[2023-11-17] MEDS: Fluconazole 100 MG TAB PER TUBE SCH (09:02)
[2023-11-17] MEDS: Lansoprazole 15 MG/5 ML (BATCHED)UDCUP PER TUBE SCH (09:02)
[2023-11-17] MEDS: Nystatin 500,000 UNITS/5 ML UDCUP SSW SCH ×4 (09:02→23:59)
[2023-11-17] MEDS: Nystatin Cream 30 GM TUBE TOP SCH (09:02)
[2023-11-17] MEDS: QUEtiapine 25 MG TAB PO SCH (21:04)
[2023-11-18] MEDS: Ipratropium/Albuterol 3 ML NEB NEB SCH ×6 (02:54→22:21)
[2023-11-18] MEDS: Midodrine HCl 5 MG TAB PO SCH ×3 (06:15→22:49)
[2023-11-18 06:59] LABS: #Monocytes 0.4 thou/uL (0.11-0.59); #Neutrophils 4.3 thou/uL (1.40-6.50); %Eosinophils 0.7 % (0.0-10.0); %Lymphocytes 17.8 % (21.0-51.0); %Monocytes 6.1 % (0.0-10.0); %Neutrophils 74.9 % (42.0-75.0); Hematocrit 33.5 % (42.0-52.0); Hemoglobin 9.8 g/dL (14.0-18.0); Mean Corpuscular HGB CONC 29.3 g/dL (32.0-36.0); Mean Corpuscular Volume 92.3 fl (78.0-98.0); Platelet Count 136 10x3/uL (130-400); RBC Distribution Width 16.4 % (11.5-14.5); Red Blood Cell (RBC) Count 3.63 mill/uL (4.70-6.10); White Blood Cell (WBC) Count 5.7 10x3/uL (4.8-10.8)
[2023-11-18] MEDS: Mometasone 200 MCG/Formoterol 5 MCG 120 PUFF INHALER INH SCH ×2 (07:06→18:28)
[2023-11-18 07:17] LABS: BUN (Urea Nitrogen) 21 mg/dL (8.4-25.7); Calc. Creatinine Clearance 150 mL/min (70-130); Calcium 8.4 mg/dL (7.8-10.44); Estimated GFR 114; Glucose 142 mg/dL (70-105)
[2023-11-18 07:26] LABS: Anion Gap 16 mmol/L (10-20); Carbon Dioxide 36 mmol/L (22-29); Chloride 94 mmol/L (98-107); Potassium 3.6 mmol/L (3.5-5.1); Sodium 142 mmol/L (136-145)
[2023-11-18] MEDS: levETIRAcetam 500 mg/5 ml Oral Solution PER TUBE SCH ×2 (08:28→20:19)
[2023-11-18] MEDS: Nystatin 500,000 UNITS/5 ML UDCUP SSW SCH ×4 (08:28→20:19)
[2023-11-18] MEDS: Nystatin Cream 30 GM TUBE TOP SCH ×3 (08:28→20:40)
[2023-11-18] MEDS: predniSONE 20 MG TAB PO SCH (08:28)
[2023-11-18] MEDS: Lansoprazole 15 MG/5 ML (BATCHED)UDCUP PER TUBE SCH (08:48)
[2023-11-18 15:32] VITALS: BP 123/74
[2023-11-18 16:52] VITALS: BMI 34.9
[2023-11-18] MEDS: QUEtiapine 25 MG TAB PO SCH (20:20)
[2023-11-19] MEDS: Ipratropium/Albuterol 3 ML NEB NEB SCH ×5 (02:32→18:34)
[2023-11-19] MEDS: Midodrine HCl 5 MG TAB PO SCH ×2 (05:08→12:46)
[2023-11-19] MEDS: Mometasone 200 MCG/Formoterol 5 MCG 120 PUFF INHALER INH SCH ×2 (07:27→18:34)
[2023-11-19] MEDS ORDERED: predniSONE 20 MG TAB PO SCH (08:00)
[2023-11-19] MEDS: Lansoprazole 15 MG/5 ML (BATCHED)UDCUP PER TUBE SCH (09:28)
[2023-11-19] MEDS: levETIRAcetam 500 mg/5 ml Oral Solution PER TUBE SCH (09:28)
[2023-11-19] MEDS: Nystatin 500,000 UNITS/5 ML UDCUP SSW SCH ×3 (09:29→16:56)
[2023-11-19] MEDS: Nystatin Cream 30 GM TUBE TOP SCH (12:45)
[2023-11-19 16:59] VITALS: TEMP 98.1
== END 2023-11-19 19:40 | disposition home or self-care (01) | DRG 208 ==
LOC: ERS 22:36 → CCU 11-07 02:40 → SURG A 11-07 17:07 → CCU 11-07 22:40 → IMCU/EMU 11-18 16:03
PROVIDERS: ADMIT Internal Medicine; ATTEND Family Medicine
PROC: 5A1945Z Respiratory Ventilation, 24-96 Consecutive Hours (ICD-10-PCS; principal; 2023-11-07)
PROC: 4A133R1 Monitoring of Arterial Saturation, Peripheral, Percutaneous Approach (ICD-10-PCS; 2023-11-07)
PROC: 5A0935A Assistance with Respiratory Ventilation, Less than 24 Consecutive Hours, High Flow/Velocity Cannula (ICD-10-PCS; 2023-11-07)
DX: J96.21 Acute and chronic respiratory failure with hypoxia (principal); E11.00 Type 2 diabetes mellitus with hyperosmolarity without nonketotic hyperglycemic-hyperosmolar coma (NKHHC); G93.41 Metabolic encephalopathy; J15.9 Unspecified bacterial pneumonia; J84.9 Interstitial pulmonary disease, unspecified; E44.0 Moderate protein-calorie malnutrition; J90 Pleural effusion, not elsewhere classified; B37.0 Candidal stomatitis; E66.2 Morbid (severe) obesity with alveolar hypoventilation; E87.0 Hyperosmolality and hypernatremia; C96.6 Unifocal Langerhans-cell histiocytosis; E87.29 Other acidosis; J84.82 Adult pulmonary Langerhans cell histiocytosis; J96.22 Acute and chronic respiratory failure with hypercapnia; D69.6 Thrombocytopenia, unspecified; D75.9 Disease of blood and blood-forming organs, unspecified; E87.6 Hypokalemia; R33.9 Retention of urine, unspecified; R53.81 Other malaise; E11.649 Type 2 diabetes mellitus with hypoglycemia without coma; R13.12 Dysphagia, oropharyngeal phase; Z90.49 Acquired absence of other specified parts of digestive tract; Z68.32 Body mass index [BMI] 32.0-32.9, adult; Z91.199 Patient's noncompliance with other medical treatment and regimen due to unspecified reason; Z92.21 Personal history of antineoplastic chemotherapy; Z98.890 Other specified postprocedural states; Z87.891 Personal history of nicotine dependence; Z93.0 Tracheostomy status; E78.5 Hyperlipidemia, unspecified; G40.909 Epilepsy, unspecified, not intractable, without status epilepticus; D63.8 Anemia in other chronic diseases classified elsewhere
CPT/HCPCS: 36415; 36416; 36600; 70450; 71045; 80048; 80053; 82805; 83605; 83735; 83880; 84100; 84145; 84484; 85025; 86140; 93005; 93010; 94002; 94003; 94640; 97139; 99285; C9113; J1450; J1642; J1650; J1815; J1940; J2060; J2405; J2597; J2920; J3475; J3480; J3490; J7070; J7120; J7512; J7620; J7999

== ENCOUNTER 2023-11-29 15:45 | Inpatient (IN) | payer OTHER, MEDICAID ==
[2023-11-29 17:16] LABS: Delete Auto Diff?? YES; Hematocrit 30.3 % (42.0-52.0); Hemoglobin 8.9 g/dL (14.0-18.0); Manual Diff?? YES; Mean Corpuscular HGB CONC 29.4 g/dL (32.0-36.0); Mean Corpuscular Hemoglobin 27.7 pg (27.0-31.0); Mean Corpuscular Volume 94.4 fl (78.0-98.0); Mean Platelet Volume 11.9 fL (7.4-10.4); Platelet Count 57 10x3/uL (130-400); RBC Distribution Width 17.2 % (11.5-14.5); Red Blood Cell (RBC) Count 3.21 mill/uL (4.70-6.10); White Blood Cell (WBC) Count 3.2 10x3/uL (4.8-10.8)
[2023-11-29 17:38] LABS: ALT (SGPT) 16 U/L (8-55); AST (SGOT) 21 U/L (5-34); Albumin 2.4 g/dL (3.5-5.0); Alkaline Phosphatase 251 U/L (40-110); Anion Gap 15 mmol/L (10-20); BUN (Urea Nitrogen) 60 mg/dL (8.4-25.7); Bilirubin, Total 0.4 mg/dL (0.2-1.2); Calc. Creatinine Clearance 0 mL/min (70-130); Calcium 8.2 mg/dL (7.8-10.44); Carbon Dioxide 28 mmol/L (22-29); Chloride 112 mmol/L (98-107); Estimated GFR 50; Globulin 4.4 g/dL (2.4-3.5); Glucose 176 mg/dL (70-105); Protein, Total 6.8 g/dL (6.0-8.3)
[2023-11-29 17:46] LABS: Critical Call Chemistry NUR.JR24 @1745; Sodium 151 mmol/L (136-145)
[2023-11-29 18:02] LABS: Anisocytosis SLIGHT = 6-15 cells HPF (0-5); Band 11 % (5-11); CellaVision Operator ID LAB.KB; Lymphocytes 17 % (21-51); Monocytes 7 % (0-10); Neutrophil 66 % (42-75); Nucleated RBC (Manual Ct) 2 % (0); Ovalocytes SLIGHT = 2-5 cells HPF (0-1); Platelet Adequacy Comment Platelets Decreased; Polychromasia SLIGHT = 2-3 cells HPF (0-2); Smudge Cells 15.7 %; Total Cell Count 102
[2023-11-29] MEDS ORDERED: Calcium Carbonate 500 MG ChewTAB PO PRN (18:15)
[2023-11-29] MEDS ORDERED: Ondansetron PF 4 MG/2 ML Vial IVP PRN (18:15)
[2023-11-29] MEDS ORDERED: Loperamide HCl 2 MG CAP PO PRN (18:15)
[2023-11-29] MEDS ORDERED: Acetaminophen 325 MG TAB PO PRN (18:15)
[2023-11-29] MEDS ORDERED: Acetaminophen 325 MG TAB PER TUBE PRN (18:29)
[2023-11-29] MEDS ORDERED: Loperamide HCl 2 MG CAP PER TUBE PRN (18:30)
[2023-11-29] MEDS ORDERED: Calcium Carbonate 500 MG ChewTAB PER TUBE PRN (18:30)
[2023-11-29] MEDS ORDERED: Dextrose 5 %-0.45 % NaCl 1,000 ML IV SCH (18:30)
[2023-11-29] MEDS ORDERED: Dextrose 50% Abboject 50 ML SYRINGE SLOW IVP PRN (19:04)
[2023-11-29] MEDS ORDERED: Glucagon 1 MG/ML KIT IM PRN (19:04)
[2023-11-29] MEDS ORDERED: Dextrose 5% in Water 1,000 ML IV PRN (19:04)
[2023-11-29 20:30] LABS: Troponin I 0.087 ng/mL (< 0.028)
[2023-11-29 22:33] LABS: Anion Gap 14 mmol/L (10-20); BUN (Urea Nitrogen) 51 mg/dL (8.4-25.7); Calc. Creatinine Clearance 0 mL/min (70-130); Calcium 8.2 mg/dL (7.8-10.44); Carbon Dioxide 30 mmol/L (22-29); Chloride 116 mmol/L (98-107); Estimated GFR 58; Glucose 156 mg/dL (70-105); Potassium 4.5 mmol/L (3.5-5.1)
[2023-11-29 22:38] LABS: Critical Call Chemistry NUR.JR24@2238; Sodium 155 mmol/L (136-145)
[2023-11-29] MEDS: levETIRAcetam 500 mg/5 ml Oral Solution PER TUBE SCH (23:53)
[2023-11-30 00:15] LABS: Troponin I 0.073 ng/mL (< 0.028)
[2023-11-30] MEDS ORDERED: Dextrose 5 %-0.45 % NaCl 1,000 ML IV SCH (03:17)
[2023-11-30] MEDS ORDERED: Midodrine HCl 5 MG TAB PER TUBE SCH ×2 (03:30→18:00)
[2023-11-30] MEDS ORDERED: Midodrine HCl 5 MG TAB PO SCH (03:30)
[2023-11-30 05:04] LABS: #Monocytes 0.2 thou/uL (0.11-0.59); #Neutrophils 1.3 thou/uL (1.40-6.50); %Basophils 0.4 % (0.0-1.0); %Eosinophils 0.7 % (0.0-10.0); %Lymphocytes 44.4 % (21.0-51.0); %Monocytes 8.1 % (0.0-10.0); %Neutrophils 45.7 % (42.0-75.0); Hemoglobin 8.5 g/dL (14.0-18.0); Mean Corpuscular HGB CONC 28.3 g/dL (32.0-36.0); Mean Corpuscular Hemoglobin 27.1 pg (27.0-31.0); Mean Corpuscular Volume 95.5 fl (78.0-98.0); Mean Platelet Volume 10.1 fL (7.4-10.4); RBC Distribution Width 17.5 % (11.5-14.5); Red Blood Cell (RBC) Count 3.14 mill/uL (4.70-6.10); White Blood Cell (WBC) Count 2.8 10x3/uL (4.8-10.8)
[2023-11-30 05:05] LABS: Platelet Count 62 10x3/uL (130-400)
[2023-11-30 05:54] LABS: ALT (SGPT) 11 U/L (8-55); AST (SGOT) 17 U/L (5-34); Albumin 2.4 g/dL (3.5-5.0); Alkaline Phosphatase 218 U/L (40-110); Anion Gap 15 mmol/L (10-20); BUN (Urea Nitrogen) 48 mg/dL (8.4-25.7); Bilirubin, Total 0.3 mg/dL (0.2-1.2); Calc. Creatinine Clearance 62 mL/min (70-130); Calcium 8.1 mg/dL (7.8-10.44); Carbon Dioxide 26 mmol/L (22-29); Chloride 119 mmol/L (98-107); Estimated GFR 59; Globulin 3.9 g/dL (2.4-3.5); Glucose 161 mg/dL (70-105); Magnesium 2.7 mg/dL (1.6-2.6); Potassium 3.7 mmol/L (3.5-5.1); Protein, Total 6.3 g/dL (6.0-8.3)
[2023-11-30 06:22] LABS: Sodium 156 mmol/L (136-145)
[2023-11-30] MEDS: Dextrose 5% in Water 1,000 ML IV SCH ×2 (06:41→16:13)
[2023-11-30] MEDS: Mometasone 200 MCG/Formoterol 5 MCG 120 PUFF INHALER INH SCH ×2 (07:31→18:56)
[2023-11-30] MEDS ORDERED: predniSONE 20 MG TAB PO SCH (08:00)
[2023-11-30] MEDS ORDERED: [UNRECOGNIZED DRUG - OTHER] PER TUBE SCH (09:00)
[2023-11-30 10:14] LABS: Anion Gap 11 mmol/L (10-20); BUN (Urea Nitrogen) 43 mg/dL (8.4-25.7); Calc. Creatinine Clearance 65 mL/min (70-130); Carbon Dioxide 33 mmol/L (22-29); Chloride 117 mmol/L (98-107); Estimated GFR 63; Glucose 167 mg/dL (70-105); Potassium 3.6 mmol/L (3.5-5.1)
[2023-11-30] MEDS: Insulin Glargine 30 UNITS/0.3 ML VIAL SC SCH (10:21)
[2023-11-30] MEDS: Atorvastatin Calcium 20 MG TAB PER TUBE SCH (10:22)
[2023-11-30] MEDS: Folic Acid 1 MG TAB PER TUBE SCH (10:22)
[2023-11-30] MEDS: Aspirin Chewable 81 MG TAB PER TUBE SCH (10:22)
[2023-11-30] MEDS: levETIRAcetam 500 mg/5 ml Oral Solution PER TUBE SCH ×2 (10:31→21:02)
[2023-11-30 10:39] LABS: Critical Call Chemistry NUR.PC9@1037; Sodium 157 mmol/L (136-145)
[2023-11-30] MEDS ORDERED: Sodium Chloride 0.9% 500 ML IV SCH ×2 (16:00→18:00)
[2023-11-30] MEDS: Hydrocortisone Sod Succ/PF 100 mg/2 ml Vial IVP SCH (18:15)
[2023-11-30] MEDS ORDERED: Albumin 25% 25 GM (100 mL) BOT IVPB SCH (18:30)
[2023-11-30] MEDS ORDERED: Piperacillin/Tazobactam 3.375 GM in Sodium Chloride 0.9% 100 ML IVPB SCH (19:15)
[2023-11-30] MEDS: Midodrine HCl 5 MG TAB PER TUBE SCH (21:02)
[2023-12-01] MEDS: Piperacillin/Tazobactam 3.375 GM in Sodium Chloride 0.9% 100 ML IVPB SCH ×4 (00:13→23:35)
[2023-12-01] MEDS: Hydrocortisone Sod Succ/PF 100 mg/2 ml Vial IVP SCH ×4 (01:08→22:12)
[2023-12-01] MEDS ORDERED: Albumin 25% 25 GM (100 mL) BOT IVPB SCH (01:45)
[2023-12-01] MEDS: Dextrose 5% in Water 1,000 ML IV SCH ×3 (02:56→16:02)
[2023-12-01 05:46] LABS: #Monocytes 0.1 thou/uL (0.11-0.59); #Neutrophils 1.5 thou/uL (1.40-6.50); %Lymphocytes 33.9 % (21.0-51.0); %Monocytes 3.6 % (0.0-10.0); %Neutrophils 60.5 % (42.0-75.0); Hematocrit 26.3 % (42.0-52.0); Hemoglobin 7.5 g/dL (14.0-18.0); Mean Corpuscular HGB CONC 28.5 g/dL (32.0-36.0); Mean Corpuscular Hemoglobin 27.3 pg (27.0-31.0); Mean Corpuscular Volume 95.6 fl (78.0-98.0); Mean Platelet Volume 9.7 fL (7.4-10.4); Red Blood Cell (RBC) Count 2.75 mill/uL (4.70-6.10); White Blood Cell (WBC) Count 2.5 10x3/uL (4.8-10.8)
[2023-12-01] MEDS: HumaLOG 300 UNITS/3 ML VIAL SC PRN ×2 (05:56→15:48)
[2023-12-01 06:00] LABS: Platelet Count 56 10x3/uL (130-400)
[2023-12-01] MEDS ORDERED: Midodrine HCl 5 MG TAB PER TUBE SCH (06:00)
[2023-12-01 06:13] LABS: Anion Gap 15 mmol/L (10-20); BUN (Urea Nitrogen) 30 mg/dL (8.4-25.7); Calc. Creatinine Clearance 35 mL/min (70-130); Carbon Dioxide 26 mmol/L (22-29); Chloride 116 mmol/L (98-107); Estimated GFR 75; Glucose 231 mg/dL (70-105); Potassium 4.5 mmol/L (3.5-5.1)
[2023-12-01 06:22] LABS: Sodium 152 mmol/L (136-145)
[2023-12-01 06:29] LABS: Manual Diff?? YES
[2023-12-01 06:31] LABS: Anisocytosis SLIGHT = 6-15 cells HPF (0-5); Band 17 % (5-11); CellaVision Operator ID LAB.GE; Hypochromia SLIGHT = 6-15 cells HPF (0-5); Large Platelets 6.8 % (0-5); Lymphocytes 23 % (21-51); Metamyelocyte 1 % (0-0); Monocytes 2 % (0-10); Neutrophil 57 % (42-75); Ovalocytes SLIGHT = 2-5 cells HPF (0-1); Platelet Adequacy Comment Platelets Decreased; Polychromasia MODERATE = 3-4 cells HPF (0-2); Tear Drops SLIGHT = 2-5 cells HPF (0-1); Total Cell Count 88
[2023-12-01] MEDS ORDERED: Sodium Chloride 0.45% 500 ML IV SCH (07:00)
[2023-12-01] MEDS: Mometasone 200 MCG/Formoterol 5 MCG 120 PUFF INHALER INH SCH ×2 (07:20→18:16)
[2023-12-01] MEDS: Aspirin Chewable 81 MG TAB PER TUBE SCH (09:05)
[2023-12-01] MEDS: Insulin Glargine 30 UNITS/0.3 ML VIAL SC SCH (09:05)
[2023-12-01] MEDS: levETIRAcetam 500 mg/5 ml Oral Solution PER TUBE SCH ×2 (09:05→22:03)
[2023-12-01] MEDS: Atorvastatin Calcium 20 MG TAB PER TUBE SCH (09:06)
[2023-12-01] MEDS: Folic Acid 1 MG TAB PER TUBE SCH (09:06)
[2023-12-01] MEDS: Midodrine HCl 5 MG TAB PER TUBE SCH (09:07)
[2023-12-01] MEDS ORDERED: Lactated Ringer's 500 ML IV SCH ×2 (09:45→10:45)
[2023-12-01] MEDS ORDERED: NOREPINEPHRINE 8 MG/250 ML-D5W 250 ML ONE (10:40)
[2023-12-01] MEDS ORDERED: NOREPINEPHRINE 8 MG/250 ML-D5W 250 ML IVPB SCH (11:00)
[2023-12-01] MEDS ORDERED: Electrolyte Replacement Protocol 1 EACH FS SCH (11:00)
[2023-12-01 15:56] LABS: Bacteria/HPF None Seen HPF (None Seen); Bilirubin Negative (Negative); Blood, Urine Negative (Negative); CAUTI Indications for Culture Alt mental st,lethar; Clarity Clear (Clear); Glucose, Urine (Dipstick) Greater than 1000 mg/dL (Negative); Ketone, Urine Trace mg/dL (Negative); Leukocyte 250 Leu/uL (Negative); Nitrite Negative (Negative); Protein, Urine (Dipstick) 10 mg/dL (Neg-Trace); RBC/HPF 0-3 HPF (0-3); Specific Gravity, Urine 1.039 (1.002-1.036); Squamous Epithelial None Seen HPF (0-3); Urobilinogen Normal mg/dL (Less than 2); WBC/HPF Greater than 50 HPF (0-3); pH, Urine 5.5 (5.0-9.0)
[2023-12-01 15:59] LABS: Urine Culture Reflex Yes Yes
[2023-12-01 16:09] LABS: Anion Gap 13 mmol/L (10-20); BUN (Urea Nitrogen) 25 mg/dL (8.4-25.7); Calc. Creatinine Clearance 39 mL/min (70-130); Calcium 7.4 mg/dL (7.8-10.44); Carbon Dioxide 23 mmol/L (22-29); Chloride 110 mmol/L (98-107); Estimated GFR 85; Glucose 266 mg/dL (70-105); Potassium 3.2 mmol/L (3.5-5.1); Sodium 143 mmol/L (136-145)
[2023-12-01] MEDS ORDERED: Potassium Bicarbonate/Cit Ac 20 MEQ TAB PER TUBE SCH ×2 (17:15→23:15)
[2023-12-01] MEDS ORDERED: Electrolyte Replacement Protocol FS PRN (17:15)
[2023-12-02] MEDS: Hydrocortisone Sod Succ/PF 100 mg/2 ml Vial IVP SCH ×4 (02:41→20:54)
[2023-12-02] MEDS: HumaLOG 300 UNITS/3 ML VIAL SC PRN ×3 (02:46→16:20)
[2023-12-02] MEDS: Dextrose 5% in Water 1,000 ML IV SCH ×3 (02:47→20:49)
[2023-12-02 06:19] LABS: Potassium 3.3 mmol/L (3.5-5.1)
[2023-12-02] MEDS: Mometasone 200 MCG/Formoterol 5 MCG 120 PUFF INHALER INH SCH ×2 (07:28→18:08)
[2023-12-02] MEDS: Potassium Chloride 20 MEQ in Premix 1 BAG IVPB SCH ×2 (08:10→10:53)
[2023-12-02] MEDS: Piperacillin/Tazobactam 3.375 GM in Sodium Chloride 0.9% 100 ML IVPB SCH ×2 (08:10→16:19)
[2023-12-02] MEDS ORDERED: Lactated Ringer's 500 ML IV SCH (09:00)
[2023-12-02] MEDS: Aspirin Chewable 81 MG TAB PER TUBE SCH (10:53)
[2023-12-02] MEDS: Insulin Glargine 30 UNITS/0.3 ML VIAL SC SCH (10:54)
[2023-12-02] MEDS: Atorvastatin Calcium 20 MG TAB PER TUBE SCH (10:54)
[2023-12-02] MEDS: Folic Acid 1 MG TAB PER TUBE SCH (11:15)
[2023-12-02] MEDS: levETIRAcetam 500 mg/5 ml Oral Solution PER TUBE SCH ×2 (11:47→20:54)
[2023-12-02] MEDS: Loperamide HCl 2 MG CAP PER TUBE SCH ×2 (11:47→20:54)
[2023-12-02] MEDS: Lansoprazole 15 MG/5 ML (BATCHED)UDCUP PER TUBE SCH (12:03)
[2023-12-02 14:06] LABS: #Monocytes 0.3 thou/uL (0.11-0.59); #Neutrophils 2.2 thou/uL (1.40-6.50); %Eosinophils 0.3 % (0.0-10.0); %Lymphocytes 30.9 % (21.0-51.0); %Monocytes 6.9 % (0.0-10.0); %Neutrophils 58.7 % (42.0-75.0); Hematocrit 25.1 % (42.0-52.0); Hemoglobin 7.6 g/dL (14.0-18.0); Mean Corpuscular HGB CONC 30.3 g/dL (32.0-36.0); Mean Corpuscular Hemoglobin 27.8 pg (27.0-31.0); Mean Corpuscular Volume 91.9 fl (78.0-98.0); Mean Platelet Volume 11.9 fL (7.4-10.4); Platelet Count 76 10x3/uL (130-400); RBC Distribution Width 17.1 % (11.5-14.5); Red Blood Cell (RBC) Count 2.73 mill/uL (4.70-6.10); White Blood Cell (WBC) Count 3.8 10x3/uL (4.8-10.8)
[2023-12-02 14:30] LABS: Anion Gap 12 mmol/L (10-20); BUN (Urea Nitrogen) 26 mg/dL (8.4-25.7); Calc. Creatinine Clearance 41 mL/min (70-130); Calcium 7.5 mg/dL (7.8-10.44); Carbon Dioxide 24 mmol/L (22-29); Chloride 104 mmol/L (98-107); Estimated GFR 93; Glucose 228 mg/dL (70-105); Potassium 3.5 mmol/L (3.5-5.1); Sodium 136 mmol/L (136-145)
[2023-12-02] MEDS ORDERED: Potassium Bicarbonate/Cit Ac 20 MEQ TAB PER TUBE SCH (20:30)
[2023-12-03] MEDS: Piperacillin/Tazobactam 3.375 GM in Sodium Chloride 0.9% 100 ML IVPB SCH ×4 (00:43→23:58)
[2023-12-03] MEDS: Hydrocortisone Sod Succ/PF 100 mg/2 ml Vial IVP SCH ×4 (04:00→20:52)
[2023-12-03] MEDS: Mometasone 200 MCG/Formoterol 5 MCG 120 PUFF INHALER INH SCH ×2 (06:48→18:40)
[2023-12-03] MEDS: Aspirin Chewable 81 MG TAB PER TUBE SCH (09:48)
[2023-12-03] MEDS: Atorvastatin Calcium 20 MG TAB PER TUBE SCH (09:48)
[2023-12-03] MEDS: Insulin Glargine 30 UNITS/0.3 ML VIAL SC SCH (09:48)
[2023-12-03] MEDS: Folic Acid 1 MG TAB PER TUBE SCH (09:48)
[2023-12-03] MEDS: levETIRAcetam 500 mg/5 ml Oral Solution PER TUBE SCH ×2 (09:48→20:49)
[2023-12-03] MEDS: Loperamide HCl 2 MG CAP PER TUBE SCH ×2 (09:48→20:49)
[2023-12-03] MEDS: Lansoprazole 15 MG/5 ML (BATCHED)UDCUP PER TUBE SCH (09:49)
[2023-12-03 15:57] VITALS: BMI 25.3
[2023-12-03] MEDS: HumaLOG 300 UNITS/3 ML VIAL SC PRN (17:11)
[2023-12-03 20:09] LABS: Potassium 3.3 mmol/L (3.5-5.1)
[2023-12-03] MEDS ORDERED: Potassium Bicarbonate/Cit Ac 20 MEQ TAB PER TUBE SCH (21:00)
[2023-12-04] MEDS: Hydrocortisone Sod Succ/PF 100 mg/2 ml Vial IVP SCH ×2 (03:13→09:51)
[2023-12-04 05:57] LABS: Hematocrit 26.3 % (42.0-52.0); Manual Diff?? YES; Mean Corpuscular HGB CONC 30.4 g/dL (32.0-36.0); Mean Corpuscular Hemoglobin 27.9 pg (27.0-31.0); Mean Corpuscular Volume 91.6 fl (78.0-98.0); Mean Platelet Volume 10.8 fL (7.4-10.4); Platelet Count 103 10x3/uL (130-400); RBC Distribution Width 17.6 % (11.5-14.5); Red Blood Cell (RBC) Count 2.87 mill/uL (4.70-6.10); White Blood Cell (WBC) Count 2.9 10x3/uL (4.8-10.8)
[2023-12-04 06:00] LABS: Delete Auto Diff?? YES
[2023-12-04 06:18] LABS: Anion Gap 7 mmol/L (10-20); BUN (Urea Nitrogen) 23 mg/dL (8.4-25.7); Calc. Creatinine Clearance 126 mL/min (70-130); Calcium 7.4 mg/dL (7.8-10.44); Carbon Dioxide 29 mmol/L (22-29); Chloride 106 mmol/L (98-107); Estimated GFR 111; Glucose 190 mg/dL (70-105); Potassium 3.5 mmol/L (3.5-5.1); Sodium 138 mmol/L (136-145)
[2023-12-04 06:31] LABS: Band 12 % (5-11); CellaVision Operator ID LAB.CLH1; Hypochromia SLIGHT = 6-15 cells HPF (0-5); Lymphocytes 14 % (21-51); Monocytes 6 % (0-10); Myelocyte 4 % (0-0); Neutrophil 64 % (42-75); Nucleated RBC (Manual Ct) 2 % (0); Platelet Adequacy Comment Platelets Decreased; Polychromasia SLIGHT = 2-3 cells HPF (0-2); Total Cell Count 100
[2023-12-04] MEDS: HumaLOG 300 UNITS/3 ML VIAL SC PRN (06:48)
[2023-12-04] MEDS: Mometasone 200 MCG/Formoterol 5 MCG 120 PUFF INHALER INH SCH (07:44)
[2023-12-04] MEDS ORDERED: Potassium Bicarbonate/Cit Ac 20 MEQ TAB PER TUBE SCH (08:00)
[2023-12-04 08:32] VITALS: TEMP 97.6
[2023-12-04] MEDS: Folic Acid 1 MG TAB PER TUBE SCH (09:48)
[2023-12-04] MEDS: levETIRAcetam 500 mg/5 ml Oral Solution PER TUBE SCH (09:48)
[2023-12-04] MEDS: Atorvastatin Calcium 20 MG TAB PER TUBE SCH (09:48)
[2023-12-04] MEDS: Loperamide HCl 2 MG CAP PER TUBE SCH (09:48)
[2023-12-04] MEDS: Insulin Glargine 30 UNITS/0.3 ML VIAL SC SCH (09:49)
[2023-12-04] MEDS: Aspirin Chewable 81 MG TAB PER TUBE SCH (09:49)
[2023-12-04] MEDS: Piperacillin/Tazobactam 3.375 GM in Sodium Chloride 0.9% 100 ML IVPB SCH (10:18)
[2023-12-04] MEDS ORDERED: predniSONE 20 MG TAB PO SCH (14:00)
[2023-12-04] MEDS: Lansoprazole 15 MG/5 ML (BATCHED)UDCUP PER TUBE SCH (14:26)
[2023-12-04 16:59] VITALS: BP 100/62
[2023-12-05] MEDS ORDERED: predniSONE 20 MG TAB PO SCH (08:00)
== END 2023-12-04 16:11 | disposition home or self-care (01) | DRG 643 ==
LOC: ERS 15:45 → SUATTDRO 15:45 → 2NO 18:18 → T4-B 11-30 15:42 → IMCU/EMU 12-01 02:43 → CCU 12-01 10:22 → T4-A 12-02 22:52
PROVIDERS: ADMIT Internal Medicine; ATTEND Internal Medicine
PROC: 30233J1 Transfusion of Nonautologous Serum Albumin into Peripheral Vein, Percutaneous Approach (ICD-10-PCS; principal; 2023-11-30)
PROC: 3E033XZ Introduction of Vasopressor into Peripheral Vein, Percutaneous Approach (ICD-10-PCS; 2023-12-01)
DX: E23.2 Diabetes insipidus (principal); I21.A1 Myocardial infarction type 2; R57.1 Hypovolemic shock; J96.10 Chronic respiratory failure, unspecified whether with hypoxia or hypercapnia; N17.9 Acute kidney failure, unspecified; C96.6 Unifocal Langerhans-cell histiocytosis; D61.818 Other pancytopenia; D64.9 Anemia, unspecified; G40.909 Epilepsy, unspecified, not intractable, without status epilepticus; E86.0 Dehydration; R79.89 Other specified abnormal findings of blood chemistry; E78.5 Hyperlipidemia, unspecified; D69.6 Thrombocytopenia, unspecified; R19.7 Diarrhea, unspecified; E11.9 Type 2 diabetes mellitus without complications; Z79.82 Long term (current) use of aspirin; Z79.899 Other long term (current) drug therapy; Z79.4 Long term (current) use of insulin; Z90.49 Acquired absence of other specified parts of digestive tract; Z98.890 Other specified postprocedural states; Z87.891 Personal history of nicotine dependence; Z83.3 Family history of diabetes mellitus; Z82.49 Family history of ischemic heart disease and other diseases of the circulatory system
CPT/HCPCS: 36415; 36416; 71045; 80048; 80053; 81001; 83605; 83735; 83880; 83930; 84132; 84484; 85025; 87040; 87077; 87086; 87186; 93005; J1720; J1815; J2543; J2597; J3480; J3490; J7030; J7042; J7070; J7120; J7512; P9047